=== PATIENT | male | born 1965 | race Caucasian/White ===

== ENCOUNTER 2022-01-31 11:52 | Inpatient (IN) ==
--- NOTE | 2022-01-31 12:29 | Emergency Department Note ---
Impression & Plan Open wound of left thigh, Abscess of left thigh ED Provider Note NAME: FABY FRENCH AGE: 56 SEX: M : 1965 ARRIVES VIA: Walk-In INFORMANT: Patient ED PROVIDER(S): Jae Bates DO CHIEF COMPLAINT: left leg pain HPI: Patient is a 56-year-old male who had an I&D performed last month in [place]. He recently moved up to [place] about a week ago. Since then over the past 4 days he has been having pain in left mid thigh just below the wound. Wound is about 36 cm x 6. He notes that has been improving. He notes the pain he has now feels like his previous infection. Denies any headache or change in vision. No chest pain or shortness of breath. No nausea, vomiting, or diarrhea. No dysuria, urgency, or frequency. He is a diabetic. ROS: See above HPI for pertinent positives & negatives. A total of 10 systems reviewed and were otherwise negative. PAST MEDICAL HISTORY:See Below PAST SURGICAL HISTORY:See Below FAMILY HISTORY:See Below SOCIAL HISTORY:See Below HOME MEDICATIONS:See Below ALLERGIES:See Below VITALS:See Below PHYSICAL EXAMINATION: GENERAL: Sitting up in bed, alert, well appearing, well nourished, no distress, non-toxic EYE EXAM: normal conjunctiva. OROPHARYNX: no exudate, no erythema, lips, buccal mucosa, and tongue normal and mucous membranes are moist NECK: non-tender LUNGS: Clear to auscultation. Normal chest wall mechanics HEART: no murmurs, S1 normal and S2 normal ABDOMEN: abdomen soft, non-tender, normo-active bowel sounds, no masses, no rebound or guarding. BACK: Back is symmetrical on inspection and there is no deformity, no midline tenderness, no CVA tenderness. SKIN: 36 x 6 cm wound left proximal thigh going back to the gluteus. Good granulation tissue. Mild bleeding present. Several sutures present. Firm nodules just below the wound on the left mid thigh. No surrounding erythema. DPs 2 out of 4. Gross station intact. UPPER EXTREMITIES: upper extremities are grossly normal. LOWER EXTREMITIES: No pitting edema. NEURO EXAM: Normal sensorium, cranial nerves II-XII grossly intact, normal speech, no gross weakness of arms, no gross weakness of legs. MEDICAL DECISION MAKING: Patient is a 56-year-old male with a large open wound on the left thigh. He is complaining of worsening leg pain. IV was established blood work was obtained. Labs show mild leukocytosis. No significant anemia. Sed rate was elevated at 86. INR unremarkable. BMP was unremarkable with exception of an elevated glucose at 239. CRP at 3.58. COVID was negative. CT showed possible superfic ial thrombus within draining abscess. Venous Doppler showed no DVT. Discussed with hospitalist for draining abscess. He was given IV antibiotics. He will need to be followed closely and will need wound care. Triage Nursing notes reviewed. Limited review of prior medical records performed Vital Signs: reviewed and remarkable for HTN and tachy Differential diagnosis: Cellulitis, abscess, MRSA infection, DVT, necrotizing fasciitis, dermatitis, drug eruption, allergic reaction, as well as other pathologies. ER treatment provided: See below Diagnostics interpreted by me: ECG: none Cardiac Monitoring: An order was placed for continuous cardiac monitoring. The monitor shows a rate of 80 with sinus rhythm. Laboratory studies: As stated above and show below. Imaging studies: CT as described above Duplex lower extremity shows no DVT Consultation(s): D/w C for further evaluation Procedures: none Critical Care: None Past Med/Surg History Medical History (Updated 01/31/22 @ 17:45 by Jae Bates DO) Diabetic neuropathy HLD (hyperlipidemia) HTN (hypertension) Morbid obesity MEETA (obstructive sleep apnea) not on cpap or O2 T2DM (type 2 diabetes mellitus) Surgical History (Updated 01/31/22 @ 15:20 by Love Caldwell PA-C) Hx of laminectomy L3-S1 Family History Other Cancer Diabetes Family history of blood clots Heart disease Social History (Updated 01/31/22 @ 15:23 by Love Caldwell PA-C) Smoking Status: Former smoker Tobacco Type: Pipe and Cigars Hx Alcohol Use: Yes Alcohol Intake Frequency Comment: rare Hx Substance Use: Yes Prescribed Medications: Marijuana Last Used Substance: Days (ago) Last Used Substance Other:: 3 Preferred Language: [place] marital status: marital status details: but currently going through former divorce Current Living Situation: Homeless Current Living Situation Comment: living with a friend Feels Safe at Home: Yes Allergies Allergies Allergy/AdvReac Type Severity Reaction Status Date / Time metformin AdvReac Severe SEVERE Verified 01/31/22 14:23 DIARRHEA Home Meds Home Medications Medication Instructions Recorded Confirmed acetaminophen 500 mg tablet 2,000 mg PO DIRECTED PRN Pain 01/31/22 01/31/22 (Tylenol Extra Strength) ibuprofen 200 mg tablet 800 mg PO DIRECTED PRN Pain 01/31/22 01/31/22 Results & Data (ED) Vital Signs Vital Signs - 24 hr 01/31/22 11:56 01/31/22 12:27 01/31/22 12:30 Temperature 36.9 C Temperature Source Temporal Artery Scan Pulse Rate 108 H 101 H 101 H Pulse Rate from SpO2 Sensor 88 100 H Respiratory Rate 18 31 H 26 H Blood Pressure 166/87 H 171/127 H 184/118 H Blood Pressure Mean 113 141 140 Pulse Oximetry 93 95 94 Oxygen Delivery Method Room Air Room Air Room Air Sepsis Recent Fever Within 48 Hours No Sepsis New/Unexplained Change in Mental Status No Sepsis Action Taken by Nursing No Action Required 01/31/22 13:01 01/31/22 14:23 01/31/22 14:30 Temperature Temperature Source Pulse Rate 92 H 86 85 Pulse Rate from SpO2 Sensor 92 H 86 85 Respiratory Rate 20 28 H 27 H Blood Pressure 178/108 H 169/107 H 180/99 H Blood Pressure Mean 131 127 126 Pulse Oximetry 96 96 95 Oxygen Delivery Method Room Air Room Air Room Air Sepsis Recent Fever Within 48 Hours Sepsis New/Unexplained Change in Mental Status Sepsis Action Taken by Nursing 01/31/22 14:51 01/31/22 15:00 01/31/22 15:30 Temperature Temperature Source Pulse Rate 85 86 Pulse Rate from SpO2 Sensor 85 83 Respiratory Rate 21 19 Blood Pressure 169/111 H 171/98 H 161/92 H Blood Pressure Mean 130 122 115 Pulse Oximetry 97 96 Oxygen Delivery Method Room Air Room Air Sepsis Recent Fever Within 48 Hours Sepsis New/Unexplained Change in Mental Status Sepsis Action Taken by Nursing 01/31/22 15:30 01/31/22 16:00 01/31/22 16:30 Temperature Temperature Source Pulse Rate 86 85 86 Pulse Rate from SpO2 Sensor 88 Respiratory Rate 24 16 22 Blood Pressure Blood Pressure Mean Pulse Oximetry 96 Oxygen Delivery Method Sepsis Recent Fever Within 48 Hours Sepsis New/Unexplained Change in Mental Status Sepsis Action Taken by Nursing Laboratory Data Result diagrams: 01/31/22 12:15 01/31/22 12:15 Lab Results 01/31/22 01/31/22 01/31/22 Range/Units 12:15 12:15 12:15 WBC 12.00 H (4.8-10.8) K/ul RBC 4.26 L (4.63-6.08) M/uL Hgb 13.4 L (14.0-18.0) g/dl Hct 38.8 L (40.1-51.0) % MCV 91.1 (80.0-100.0) fL MCH 31.5 (25.0-34.0) pg MCHC 34.5 (32.0-36.0) g/dL RDW Std Deviation 48.6 H (36.4-46.3) fL RDW Coeff of Mercedes 14.5 (11.5-14.5) % Plt Count 353 (130-400) K/uL MPV 11.2 (9.4-12.4) fL Immature Gran % (Auto) 0.9 % Neut % (Auto) 76.2 % Lymph % (Auto) 14.1 % [place] % (Auto) 7.0 % Eos % (Auto) 1.2 % Baso % (Auto) 0.6 % Neut # (Auto) 9.15 H (1.4-6.5) K/uL Lymph # (Auto) 1.69 (1.2-3.4) K/uL [place] # (Auto) 0.84 H (0.24-0.82) K/uL Eos # (Auto) 0.14 (0-0.50) K/uL Baso # (Auto) 0.07 (0-0.2) K/uL Immature Gran # (Auto) 0.11 H (0.00-0.02) K/uL ESR 86 H (0-20) mm/hr PT (9.0-12.0) Seconds INR (0.9-1.1) APTT (21.0-31.0) Seconds PTT Ratio Sodium 138 (136-145) mmol/L Potassium 3.8 (3.5-5.1) mmol/L Chloride 104 (98-107) mmol/L Carbon Dioxide 24 (21-32) mmol/L Anion Gap 10 (3-11) BUN 10 (6-23) mg/dl Creatinine 0.58 L (0.6-1.4) mg/dl Est Cr Clr Drug Dosing Not Reportable Est GFR ( Amer) 131.2 ml/min Est GFR (Non-Af Amer) 113.2 ml/min BUN/Creatinine Ratio 17.2 (10-20) Glucose 239 H (70-99(Fasting)) mg/dl Calcium 9.7 (8.5-10.1) mg/dl Total Bilirubin 0.4 (0.2-1.0) mg/dl AST 8 L (13-39) U/L ALT 6 L (7-52) U/L Alkaline Phosphatase 86 (34-104) U/L C-Reactive Protein (0-0.5) mg/dl Total Protein 7.3 (6.0-8.3) gm/dl Albumin 3.6 (3.4-5.0) gm/dl Globulin 3.7 (2.5-4.0) gm/dl Albumin/Globulin Ratio 1.0 (0.9-2) SARS-CoV-2, RNA, NAAT (NEGATIVE) 01/31/22 01/31/22 01/31/22 Range/Units 12:15 12:44 14:25 WBC (4.8-10.8) K/ul RBC (4.63-6.08) M/uL Hgb (14.0-18.0) g/dl Hct (40.1-51.0) % MCV (80.0-100.0) fL MCH (25.0-34.0) pg MCHC (32.0-36.0) g/dL RDW Std Deviation (36.4-46.3) fL RDW Coeff of Mercedes (11.5-14.5) % Plt Count (130-400) K/uL MPV (9.4-12.4) fL Immature Gran % (Auto) % Neut % (Auto) % Lymph % (Auto) % [place] % (Auto) % Eos % (Auto) % Baso % (Auto) % Neut # (Auto) (1.4-6.5) K/uL Lymph # (Auto) (1.2-3.4) K/uL [place] # (Auto) (0.24-0.82) K/uL Eos # (Auto) (0-0.50) K/uL Baso # (Auto) (0-0.2) K/uL Immature Gran # (Auto) (0.00-0.02) K/uL ESR (0-20) mm/hr PT 11.1 (9.0-12.0) Seconds INR 1.0 (0.9-1.1) APTT 25.6 (21.0-31.0) Seconds PTT Ratio 0.9 Sodium (136-145) mmol/L Potassium (3.5-5.1) mmol/L Chloride (98-107) mmol/L Carbon Dioxide (21-32) mmol/L Anion Gap (3-11) BUN (6-23) mg/dl Creatinine (0.6-1.4) mg/dl Est Cr Clr Drug Dosing Est GFR ( Amer) ml/min Est GFR (Non-Af Amer) ml/min BUN/Creatinine Ratio (10-20) Glucose (70-99(Fasting)) mg/dl Calcium (8.5-10.1) mg/dl Total Bilirubin (0.2-1.0) mg/dl AST (13-39) U/L ALT (7-52) U/L Alkaline Phosphatase (34-104) U/L C-Reactive Protein 3.58 H (0-0.5) mg/dl Total Protein (6.0-8.3) gm/dl Albumin (3.4-5.0) gm/dl Globulin (2.5-4.0) gm/dl Albumin/Globulin Ratio (0.9-2) SARS-CoV-2, RNA, NAAT NEGATIVE (NEGATIVE) Administered Medications Discontinued Medications Piperacillin Sod/Tazobactam Sod (Zosyn) 4.5 gm in 120 mls @ 240 mls/hr IV NOW ONE Stop: 01/31/22 14:45 Last Admin: 01/31/22 16:52 Dose: 240 mls/hr Documented By: GUCCI Ioversol (Optiray 300 500ml) 110 ml IV ONCE ONE Stop: 01/31/22 13:27 Last Admin: 01/31/22 13:26 Dose: 110 ml Documented By: TRISTON Labetalol HCl (Labetalol Hcl Iv 5 Mg/Ml 20ml) 10 mg IV NOW STA Stop: 01/31/22 14:52 Last Admin: 01/31/22 16:52 Dose: 10 mg Documented By: GUCCI Co-signed By: ASW Piperacillin Sod/Tazobactam Sod (Piperacillin/Tazobactam 4.5 Gm/120ml D5w) Confirm Administered Dose 4.5 gm IV .Safend-Kudarom ONE Stop: 01/31/22 16:49 Last Admin: 01/31/22 16:58 Dose: Not Given Documented By: RDStevie Imaging Data Radiologist's Impression: Femur CT 01/31/22 12:25 CT femur LT w con HISTORY: 56 years-old Male large wound ? abscess below wound l mid thigh soft tissue swelling with wound of the left upper thigh. Prior debridement. COMPARISON: None TECHNIQUE: Multiple axial CT images of the left femur were obtained following the intravenous administration of 110 mL Optiray 300. A dose lowering technique was used consistent with the principals of HENRY. FINDINGS: Partial distention of the urinary bladder with mild wall thickening. Prostate is mildly enlarged. Colonic diverticulosis. Mildly enlarged left inguinal chain lymph nodes measure up to 2.2 x 1.1 cm. Air and fluid-filled peripherally enhancing collection of the anteromedial left thigh measures approximately 3.0 x 1.6 x 8.0 cm extending to the skin surface. This is rounded by moderate subcutaneous edema with skin thickening. There is a questioned adjacent superficial venous thrombus on image 341 series 3. Ill-defined area of increased attenuation within the subcutaneous tissues on image 155 may be secondary to the prior debridement. No intramuscular collection identified. Evaluation of the bone windows demonstrates no acute fracture, dislocation or os seous erosion. Osteoarthritis of the knee and hip. IMPRESSION: 1. Air and fluid-filled collection extending to the skin surface within the anteromedial aspect of the left upper thigh measures up to approximately 8.0 cm suggestive of a probable abscess. There is adjacent cellulitis with possible superficial venous thrombus. 2. No acute fracture, dislocation or osseous erosion. 3. Inguinal adenopathy, likely reactive. ACT 112: Negative or not required by law. The above report was generated using voice recognition software. It may contain grammatical, syntax or spelling errors. Electronically signed by: Lv Espana M.D. 01/31/2022 1:39 PM Venous Doppler Study 01/31/22 12:25 US venous doppler LE LT CLINICAL HISTORY: lle pain and swelling below wound TECHNIQUE: Left lower extremity real-time compression venous ultrasound with Color Doppler imaging. Utilizing real-time ultrasonic imaging multiple real time high-resolution ultrasonic images with compression and noncompression maneuvers of the deep venous system in addition to color doppler imaging were performed from the common femoral vein through the proximal calf veins. COMPARISON: None available at the time of this dictation. FINDINGS: Currently there is normal compressibility of the deep venous system from the common femoral vein through the proximal calf veins. Exam is limited by patient tolerance. A large open wound is noted in the left groin. Impression: No evidence of deep venous thrombus. Incidental note is made of a large open wound in the left groin. ACT 112: Negative or not required by law. Electronically signed by: Caio Sims M.D. 01/31/2022 4:47 PM Discharge Plan Visit Data Chief Complaint: Wound Stated Complaint: OPEN WOUND ON LEFT THIGH ED Provider: Jae Bates Discharge Problem: Open wound of left thigh, Abscess of left thigh Forms Stand Alone Forms: [facility] Prescriptions Prescriptions: No Action acetaminophen [Tylenol Extra Strength] 500 mg Tablet 2,000 mg PO DIRECTED PRN (Reason: Pain) ibuprofen 200 mg Tablet 800 mg PO DIRECTED PRN (Reason: Pain) Referrals Referrals: PCP,NO [Physician] -
[2022-01-31 12:30] LABS: Basophils # (auto) 0.07 K/uL (0-0.2); Basophils % (auto) 0.6 %; Eosinophils # (auto) 0.14 K/uL (0-0.50); Eosinophils % (auto) 1.2 %; Hematocrit (blood only) 38.8 % (40.1-51.0); Hemoglobin 13.4 g/dl (14.0-18.0); Immature Granulocytes # (auto) 0.11 K/uL (0.00-0.02); Immature Granulocytes % (auto) 0.9 %; Lymphocytes # (auto) 1.69 K/uL (1.2-3.4); Lymphocytes % (auto) 14.1 %; Mean Corpuscular Hemoglobin 31.5 pg (25.0-34.0); Mean Corpuscular Hgb Conc 34.5 g/dL (32.0-36.0); Mean Corpuscular Volume 91.1 fL (80.0-100.0); Mean Platelet Volume 11.2 fL (9.4-12.4); Monocytes # (auto) 0.84 K/uL (0.24-0.82); Neutrophils # (auto) 9.15 K/uL (1.4-6.5); Neutrophils % (auto) 76.2 %; Platelet Count 353 K/uL (130-400); RDW Coefficient of Variation 14.5 % (11.5-14.5); RDW Standard Deviation 48.6 fL (36.4-46.3); Red Blood Count 4.26 M/uL (4.63-6.08)
[2022-01-31 12:50] LABS: Alanine Aminotransferase 6 U/L (7-52); Albumin Level 3.6 gm/dl (3.4-5.0); Alkaline Phosphatase 86 U/L (34-104); Anion Gap 10 (3-11); Aspartate Aminotransferase 8 U/L (13-39); BUN Creatinine Ratio 17.2 (10-20); Bilirubin,Total 0.4 mg/dl (0.2-1.0); Blood Urea Nitrogen 10 mg/dl (6-23); Calcium 9.7 mg/dl (8.5-10.1); Carbon Dioxide 24 mmol/L (21-32); Chloride 104 mmol/L (98-107); Est GFR (African American) 131.2 ml/min; Est GFR (Non-African American) 113.2 ml/min; Globulin 3.7 gm/dl (2.5-4.0); Glucose 239 mg/dl (70-99(Fasting)); Potassium 3.8 mmol/L (3.5-5.1); Sodium 138 mmol/L (136-145); Total Protein 7.3 gm/dl (6.0-8.3)
[2022-01-31 13:13] LABS: Partial Thromboplastin Ratio 0.9; Partial Thromboplastin Time 25.6 Seconds (21.0-31.0); Prothrombin Time 11.1 Seconds (9.0-12.0)
[2022-01-31] MEDS ORDERED: OPTIRAY 300 500mL IV ONE (13:26)
--- NOTE | 2022-01-31 13:40 | CT Scan Report ---
CT femur LT w con HISTORY: 56 years-old Male large wound ? abscess below wound l mid thigh soft tissue swelling with w ound of the left upper thigh. Prior debridement. COMPARISON: None TECHNIQUE: Multiple axial CT images of the left femur were obtained following the intravenous adminis tration of 110 mL Optiray 300. A dose lowering technique was used consistent with the principals of Loc MENESES. FINDINGS: Partial distention of the urinary bladder with mild wall thickening. Prostate is mildly enlarged. Col onic diverticulosis. Mildly enlarged left inguinal chain lymph nodes measure up to 2.2 x 1.1 cm. Air and fluid-filled peripherally enhancing collection of the anteromedial left thigh measures approximat graeme 3.0 x 1.6 x 8.0 cm extending to the skin surface. This is rounded by moderate subcutaneous edema with skin thickening. There is a questioned adjacent superficial venous thrombus on image 341 series 3. Ill-defined area of increased attenuation within the subcutaneous tissues on image 155 may be seco ndary to the prior debridement. No intramuscular collection identified. Evaluation of the bone windows demonstrates no acute fracture, dislocation or osseous erosion. Osteoa rthritis of the knee and hip. IMPRESSION: 1. Air and fluid-filled collection extending to the skin surface within the anteromedial aspect of th e left upper thigh measures up to approximately 8.0 cm suggestive of a probable abscess. There is adj acent cellulitis with possible superficial venous thrombus. 2. No acute fracture, dislocation or osseous erosion. 3. Inguinal adenopathy, likely reactive. ACT 112: Negative or not required by law. The above report was generated using voice recognition software. It may contain grammatical, syntax o r spelling errors. Electronically signed by: Lv Espana M.D. 01/31/2022 1:39 PM
[2022-01-31] MEDS ORDERED: PIPERACILLIN/TAZOBACTAM 4.5 GM/120 ML BAG IV ONE (14:16)
[2022-01-31] MEDS ORDERED: LABETALOL HCL IV 5 MG/ML 20ML IV STA (14:51)
--- NOTE | 2022-01-31 15:23 | History & Physical Report ---
Date of Service January 31, 2022 Assessment & Plan (1) Open wound of left thigh: (2) Abscess of left thigh: (3) T2DM (type 2 diabetes mellitus): (4) HTN (hypertension): (5) HLD (hyperlipidemia): (6) Diabetic neuropathy: (7) Morbid obesity: Plan This is a 56-year-old male who has a significant past medical history of uncontrolled T2DM, HTN, HLD, obesity and MEETA who presents to ED due to worsening of L thigh wound x 3 days. Pt recently moved back from [place], [place]. Hospitalized there 12/27-01/20 2/2 L thigh abscess/cellulitis, that started as abscess. States underwent I and D, completed antibiotics and d/c to home with wound care. Has moved back up here a week and 3 days ago sx started to recur. Hx of cellulitis in past, denies hx of MRSA. Due to no insurance has not been taking any medications for chronic medical conditions Open Wound of L thigh Abscess of L thigh admit to tele consult general surgery initiate broad spectrum antibiotic with vanco, cefepime, flagyl obtain superficial culture although likely to be not helpful, will likely need I and D wound consult elevated lower ext obtain blood culture, esr/crp, pt does not meet criteria for sepsis will make NPO after midnight in event surgical procedure in a.m. Possible SVT per Femur CT ? SVT venous Doppler negative for dvt/svt T2DM, uncontrolled due to unable to afford medications place on lantus/novolog protocol obtain a1c in a.m. , pt states in [place] it was > 9 will likely need to coordinate with CM to determine a regimen pt can afford, currently he states he has no income HTN bp very high on admission, again likely chronic and untreated previously when under care of Dr. Leung was on lisinopril 40mg daily and coreg 3.125mg bid will give 10mg IV labetolol x 1 now will start lisinopril 20mg daily, will need to titrate as needed HLD previously of atorvastatin 80mg daily currently off medication obtain lipid panel in a.m. Morbid Obesity encourage diet and lifestyle modifications DVT ppx: will await surgical consult to determine if to go for I and D, if not recommend adding lovenox DNR/DNI PCP: none, pt wishes to return to [facility], previously saw Dr. Leung, pt will also need assistance with medications as currently he isn't taking any due to unable to afford Pt was seen and examined in collaboration with Dr. Martin, please see addendum History of Present Illness Chief Complaint: Worsening wound to L leg x 3 days. Primary Care Provider: Eron Leung MD This is a 56-year-old male who has a significant past medical history of uncontrolled T2DM, HTN, HLD, obesity and MEETA who presents to ED due to worsening of L thigh wound x 3 days. Patient recently lived in the area but moved to [place], [place] approximately 2 years ago. He was recently hospitalized at [facility] in [place] from December 27 - January 20. He was hospitalized for L thigh cellulitis and abscess. He underwent I and D. He completed antibiotic therapy. He is unsure what antibiotics he took as well as what his culture showed in the hospital. He was discharged to home with wet to dry dressing changes twice daily. He moved back to [place] with his son Jeff, who is at bedside, 1 week ago. He continued to have his wound at discharge but felt it was much improved. Approx 3 days ago he noted a lot more swelling, pain, redness and bloody, yellow discharge to the medial aspect of wound. He denies any f/c/s, chest pain, sob, URI sx, cough, n/v/d, abd pain, change in bowel or urinary habits. Unfortunately pt lost his insurance due to job and was not able to get medicaid in [place]. He has not been on medication for his chronic medical problems for quite some time. He states he was recently just approved to medicaid. He states he previously followed Dr. Leung of [facility] and is interested in following with [facility] again. Currently he is homeless and living with a friend. When he was in the hospital his actually served him divorce papers. Allergies Allergy/AdvReac Type Severity Reaction Status Date / Time metformin AdvReac Severe SEVERE Verified 01/31/22 14:23 DIARRHEA Home Medications Medication Instructions Recorded Confirmed Type acetaminophen 500 mg tablet 2,000 mg PO DIRECTED PRN Pain 01/31/22 01/31/22 History (Tylenol Extra Strength) ibuprofen 200 mg tablet 800 mg PO DIRECTED PRN Pain 01/31/22 01/31/22 History Past Med/Surg History Medical History (Updated 01/31/22 @ 17:45 by Jae Bates DO) Diabetic neuropathy HLD (hyperlipidemia) HTN (hypertension) Morbid obesity MEETA (obstructive sleep apnea) not on cpap or O2 T2DM (type 2 diabetes mellitus) Surgical History (Updated 01/31/22 @ 15:20 by Love Caldwell PA-C) Hx of laminectomy L3-S1 Family History Other Cancer Diabetes Family history of blood clots Heart disease Social History (Updated 01/31/22 @ 15:23 by Love Caldwell PA-C) Smoking Status: Former smoker Tobacco Type: Pipe and Cigars Hx Alcohol Use: Yes Alcohol Intake Frequency Comment: rare Hx Substance Use: Yes Prescribed Medications: Marijuana Last Used Substance: Days (ago) Last Used Substance Other:: 3 Preferred Language: Persian marital status: marital status details: but currently going through former divorce Current Living Situation: Homeless Current Living Situation Comment: living with a friend Feels Safe at Home: Yes Review of Systems Review of Systems: All systems reviewed & are unremarkable except as noted in HPI & below Physical Exam Physical Exam: constitutional:WD/WN, morbidly obese, vitals as above, NAD, sitting up in bed, pleasant, conversing easily Head: Normocephalic, Atraumatic Eyes: PERRL, conjunctivae normal, anicteric sclerae ENMT: external ear and nose normal, oropharynx normal Neck: trachea midline, no thyromegaly normal visual inspection Respiratory: normal respiratory effort, lungs clear to auscultation, no wheeze, rales, rhonchi. Normal insp/exp effort, no accessory muscle use Cardiovascular: RRR, no murmur, b/l venous stasis changes, non pitting edema, b/l pedal pulses +1 Vessels: no JVD or carotid bruit Chest: normal inspection of chest Abdomen: normal bowel sounds, soft, nontender, no hepatosplenomegaly Musculoskeletal: no cyanosis or clubbing, extremities motor strength 5/5 Skin:+ Large wound (~ 36 x 6 cm) extending from lateral proximal thing to medial inguinal region with hard, tender, erythematous abscess, wound itself with good granular tissue, several sutures present, warm and dry normal turgor Neurologic: PERRL, EOMI, accommodation nl, no face palsy, no dysarthria CN's II-XI intact bilaterally and moves all extremities Psychiatric: A+Ox3, euthymic affect Lymphatic: no cervical or axillary lymphadenopathy : deferred Results & Data Results & Data ([facility]) Vital Signs (Past 12 Hours) Vital Signs Temp Pulse Resp BP Pulse Ox O2 Del Method 01/31/22 15:00 86 19 171/98 H 96 Room Air 01/31/22 14:51 85 21 169/111 H 97 Room Air 01/31/22 14:30 85 27 H 180/99 H 95 Room Air 01/31/22 14:23 86 28 H 169/107 H 96 Room Air 01/31/22 13:01 92 H 20 178/108 H 96 Room Air 01/31/22 12:30 101 H 26 H 184/118 H 94 Room Air 01/31/22 12:27 101 H 31 H 171/127 H 95 Room Air 01/31/22 11:56 36.9 C 108 H 18 166/87 H 93 Room Air Diagnostic Findings Femur CT 01/31/22 12:25 CT femur LT w con HISTORY: 56 years-old Male large wound ? abscess below wound l mid thigh soft tissue swelling with wound of the left upper thigh. Prior debridement. COMPARISON: None TECHNIQUE: Multiple axial CT images of the left femur were obtained following the intravenous administration of 110 mL Optiray 300. A dose lowering technique was used consistent with the principals of HENRY. FINDINGS: Partial distention of the urinary bladder with mild wall thickening. Prostate is mildly enlarged. Colonic diverticulosis. Mildly enlarged left inguinal chain lymph nodes measure up to 2.2 x 1.1 cm. Air and fluid-filled peripherally enhancing collection of the anteromedial left thigh measures approximately 3.0 x 1.6 x 8.0 cm extending to the skin surface. This is rounded by moderate subcutaneous edema with skin thickening. There is a questioned adjacent superficial venous thrombus on image 341 series 3. Ill-defined area of increased attenuation within the subcutaneous tissues on image 155 may be secondary to the prior debridement. No intramuscular collection identified. Evaluation of the bone windows demonstrates no acute fracture, dislocation or osseous erosion. Osteoarthritis of the knee and hip. IMPRESSION: 1. Air and fluid-filled collection extending to the skin surface within the anteromedial aspect of the left upper thigh measures up to approximately 8.0 cm suggestive of a probable abscess. There is adjacent cellulitis with possible superficial venous thrombus. 2. No acute fracture, dislocation or osseous erosion. 3. Inguinal adenopathy, likely reactive. ACT 112: Negative or not required by law. The above report was generated using voice recognition software. It may contain grammatical, syntax or spelling errors. Electronically signed by: Lv Espana M.D. 01/31/2022 1:39 PM Medications Administered Medication List Discontinued Medications Ioversol (Optiray 300 500ml) 110 ml IV ONCE ONE Stop: 01/31/22 13:27 Last Admin: 01/31/22 13:26 Dose: 110 ml Documented By: TRISTON COVID-19 Results Results COVID-19 Adm Lab Results: RBC 4.26 M/uL (4.63-6.08) L 01/31/22 WBC 12.00 K/ul (4.8-10.8) H 01/31/22 Hgb 13.4 g/dl (14.0-18.0) L 01/31/22 Hct 38.8 % (40.1-51.0) L 01/31/22 Plt Count 353 K/uL (130-400) 01/31/22 Neutrophils (%) (Auto) 76.2 % 01/31/22 Lymphocytes (%) (Auto) 14.1 % 01/31/22 Monocytes # (Auto) 0.84 K/uL (0.24-0.82) H 01/31/22 Eosinophils # (Auto) 0.14 K/uL (0-0.50) 01/31/22 Immature Granulocyte % (Auto) 0.9 % 01/31/22 Neutrophils # (Auto) 9.15 K/uL (1.4-6.5) H 01/31/22 Lymphocytes # (Auto) 1.69 K/uL (1.2-3.4) 01/31/22 Monocytes # (Auto) 0.84 K/uL (0.24-0.82) H 01/31/22 Eosinophils # (Auto) 0.14 K/uL (0-0.50) 01/31/22 Basophils # (Auto) 0.07 K/uL (0-0.2) 01/31/22 Immature Granulocyte # (Auto) 0.11 K/uL (0.00-0.02) H 01/31 Na 138 mmol/L (136-145) 01/31/22 K 3.8 mmol/L (3.5-5.1) 01/31/22 Cl 104 mmol/L (98-107) 01/31/22 CO2 24 mmol/L (21-32) 01/31/22 Anion Gap 10 (3-11) 01/31/22 BUN 10 mg/dl (6-23) 01/31/22 Creatinine 0.58 mg/dl (0.6-1.4) L 01/31/22 BUN/Creatinine Ratio 17.2 (10-20) 01/31/22 Glucose Level 239 mg/dl (70-99(Fasting)) H 01/31/22 Ca 9.7 mg/dl (8.5-10.1) 01/31/22 Total Bilirubin 0.4 mg/dl (0.2-1.0) 01/31/22 AST/SGOT 8 U/L (13-39) L 01/31/22 ALT/SGPT 6 U/L (7-52) L 01/31/22 Alkaline Phosphatase 86 U/L (34-104) 01/31/22 Total Protein 7.3 gm/dl (6.0-8.3) 01/31/22 Albumin 3.6 gm/dl (3.4-5.0) 01/31/22 Globulin 3.7 gm/dl (2.5-4.0) 01/31/22 Albumin/Globulin Ratio 1.0 (0.9-2) 01/31/22 CRP 3.58 mg/dl (0-0.5) H 01/31/22 PTT 25.6 Seconds (21.0-31.0) 01/31/22 INR 1.0 (0.9-1.1) 01/31/22 SARS-CoV-2, RNA, NAAT NEGATIVE (NEGATIVE) 01/31/22 Code Status & VTE Plan Code Status DNR/DNI VTE Prophylaxis Plan VTE Prophylaxis will be ordered: No Supervising Physician Co-Signing Physician Notes Pt seen and examined by me, care coordinated w/ BEduardo Caldwell PA-C, pls refer to her note above for further detail. Pt is a 56 yo M w/ uncontrolled T2DM, HTN, HLD, obesity and MEETA who presents due to worsening of L thigh wound. Patient recently moved back to [place] from [place] ([place] He was hospitalized at [facility] in [place] from December 27 - January 20. He was hospitalized for L thigh cellulitis and abscess. He underwent I and D. He completed antibiotic therapy. Approx 3 days ago he noted a lot more swelling, pain, redness and bloody, yellow discharge to the medial aspect of wound. He denies any f/c/s, chest pain, sob, URI sx, cough, n/v/d, abd pain. He is currently lying in bed, in no acute distress. He is alert oriented answering questions appropriately.As above, he denies any other complaints. Lung sounds clear to auscultation bilaterally without any wheezing, rhonchi or crackles. Heart sounds regular. Abdomen soft nontender nondistended, obese. Patient appears morbidly obese on physical exam. Significant wound noted in right upper thigh from medial to lateral. Gauze/dressings applied as well, some surgical sutures noted as well. Some lower extremity edema noted. Calves tender to palpation, however per patient this is due to his neuropathy. CT of his leg, as well as Doppler obtained. Doppler negative for DVT. CT concerning for large abscess. Surgical service consulted. Patient was started on IV broad spectrum antibiotics in the ED. We will continue with IV vancomycin, cefepime and Flagyl. MD Veronica
[2022-01-31] MEDS ORDERED: PIPERACILLIN/TAZOBACTAM 4.5 GM/120ML D5W IV ONE (16:48)
--- NOTE | 2022-01-31 16:48 | Ultrasound Report ---
US venous doppler LE LT CLINICAL HISTORY: lle pain and swelling below wound TECHNIQUE: Left lower extremity real-time compression venous ultrasound with Color Doppler imaging. U tilizing real-time ultrasonic imaging multiple real time high-resolution ultrasonic images with compr ession and noncompression maneuvers of the deep venous system in addition to color doppler imaging we re performed from the common femoral vein through the proximal calf veins. COMPARISON: None available at the time of this dictation. FINDINGS: Currently there is normal compressibility of the deep venous system from the common femoral vein thro ugh the proximal calf veins. Exam is limited by patient tolerance. A large open wound is noted in th e left groin. Impression: No evidence of deep venous thrombus. Incidental note is made of a large open wound in the left groin. ACT 112: Negative or not required by law. Electronically signed by: Caio Sims M.D. 01/31/2022 4:47 PM
[2022-01-31] MEDS ORDERED: CARBOHYDRATES FOR HYPOGLYCEMIA PO PRN (17:55)
[2022-01-31] MEDS ORDERED: GLUCOSE 40% GEL 15 GM TUBE PO PRN (17:55)
[2022-01-31] MEDS ORDERED: ONDANSETRON INJ 2 MG/ML 2 ML VIAL IV PRN (17:55)
[2022-01-31] MEDS ORDERED: GLUCOSE 10 TAB/TUBE PO PRN (17:55)
[2022-01-31] MEDS ORDERED: VANCOMYCIN CONSULT ACTIVE PRN (17:55)
[2022-01-31] MEDS ORDERED: POLYETHYLENE (MIRALAX) 17 GM PACK PO PRN (17:55)
[2022-01-31] MEDS ORDERED: DEXTROSE 50% 50 ML SYRINGE IV PRN (17:55)
[2022-01-31] MEDS ORDERED: PHARMACY GLYCEMIC MGMT CONSULT PRN (17:55)
[2022-01-31] MEDS ORDERED: ACETAMINOPHEN 325 MG TAB PO PRN (17:55)
[2022-01-31] MEDS ORDERED: GLUCAGON FOR INJ 1 MG VIAL SQ PRN (17:55)
[2022-01-31] MEDS ORDERED: ALUMINUM/MAGNESIUM SUSP 30 ML UDC PO PRN (17:55)
[2022-01-31] MEDS ORDERED: MAGNESIUM HYDROXIDE SUSP 30 ML UDC PO PRN (17:55)
[2022-01-31] MEDS ORDERED: Patient's HEIGHT &/or WEIGHT Needed SCH (18:00)
[2022-01-31] MEDS: lisinopril 20 MG TAB PO SCH (18:14)
[2022-01-31] MEDS: INSULIN ASPART PER UNIT SC SCH ×2 (18:15→21:09)
[2022-01-31] MEDS ORDERED: VANCOMYCIN HCL 2,750 MG in SODIUM CHLORIDE 0.9% 500 ML IV ONE (18:30)
--- NOTE | 2022-01-31 18:59 | Pharmacy Report ---
Pharmacy PK ABX Note - Date of Service January 31, 2022 - Assessment and Plan Assessment 56 year old M receiving vancomycin/cefepime/Flagyl for treatment of thigh cellulitis. No culture data at this time. Patient was previously hospitalized x 1 month in [place] and received unknown antibiotics. Day # 1 of antimicrobial therapy. Plan Vancomycin * Loading dose: 2750 mg IV x 1 * Maintenance dose: 1500 mg IV every 12 hours * Regimen is predicted to achieve target AUC/MIGULE of 400-600 mg/L.hr * Trough level ordered for: 02/02/22 @0330 Pharmacy will continue to follow and will adjust dose/frequency as necessary. Thank you. Pharmacy has transitioned to AUC monitoring for vancomycin. AUC/MIGUEL is the preferred PK/PD target and is associated with decreased risk of nephrotoxicity compared to traditional trough targets.
--- NOTE | 2022-01-31 19:38 | Surgery Consultation ---
Date of Consultation January 31, 2022 Assessment & Plan (1) Abscess of left thigh: Patient has been admitted on the hospitalist service. We recommend proceeding as follows: Continue broad-spectrum antibiotics in form of cefepime, vancomycin, and Flagyl Records have been requested from previous hospitalization in [place]. We will await these records and they have further be able to tailor his antibiotics based on any cultures that were obtained. Agree with measures to improve glycemic control Agree with obtaining a wound care nurse consultation The patient is n.p.o. after midnight. We will continue this order and tentatively plan on an incision and drainage in the operating room after exami nation by attending surgeon in the morning. It is noteworthy to mention that the patient is currently hemodynamically stable and afebrile. He has just finished his evening meal proximately 20 minutes ago therefore operative intervention will be delayed until the morning. History of Present Illness Reason for Consultation: Left thigh abscess Attending Physician: Prince Martin MD History of Present Illness This is a 56-year-old male who is a known diabetic. The patient recently relocated to the [facility] from [place]. Patient says that he developed an infection of his left thigh while he was still residing in [place]. He underwent an incision and drainage of the infected area on December 30. Patient notes that the wound was left open and he was applying wet-to-dry dressings twice daily. The patient says he was hospitalized in [place] for this and when he was discharged he was discharged on antibiotics which he believes was amoxicillin. He reports that he finished this antibiotic on January 20. Patient says he was initially doing well upon completion of his antibiotics however over the past 24 to 48 hours he noted some hard spots and worsening pain of the left leg. He does note that he has continued to change the dressing of his leg and during the dressing change performed yesterday he did note some bleeding of the wound. He has not had any fevers, shakes, or chills. He does note that there has been considerable drainage from the wound at times but he notes that it is not pus and is not malodorous. He does note that the drainage has been clear. Due to the worsening pain he presented to the emergency department. Since arrival to the hospital the patient has had labs and imaging which I independent reviewed. He did undergo a left femur CT scan. This showed the patient had an air and fluid-filled collection extending to the skin surface with the anterior medial aspect of the left upper thigh measuring approximately 8.0 cm. This was suggestive of an abscess. Adjacent cellulitis with a possible superficial venous thrombosis was noted. A left lower extremity venous Doppler was performed that showed no evidence of DVT. Labs including CBC were white blood cell count was 12.0. Hemoglobin and hematocrit were 13.4 and 38.8. Platelet count was normal. Chemistry profile showed sodium, potassium, and BUN were normal. Creatinine was 0.58. Patient's glucose was noted to be 239. A COVID test was noted to be negative. I did asked the patient about his diabetic history and he notes that he has been diabetic for many years and he has not been taking any diabetic medications for several years as well. In addition the patient reports severe lower extremity neuropathy. He says he has tried various modalities for this in the past including Neurontin and Lyrica but these did not alleviate any of his neuropathic pain. Patient also adds that he is a current smoker. Since admission to the hospital the patient has been initiated on broad-spectrum antibiotics in form of cefepime, vancomycin, and Flagyl. He has also been initiated on insulin to achieve better diabetic control. Blood cultures have been sent and a superficial left leg wound culture has been obtained. At the time of my interview the patient was resting comfortably in bed he was in no distress. Allergies Allergy/AdvReac Type Severity Reaction Status Date / Time metformin AdvReac Severe SEVERE Verified 01/31/22 14:23 DIARRHEA Home Medications Medication Instructions Recorded Confirmed Type acetaminophen 500 mg tablet 2,000 mg PO DIRECTED PRN Pain 01/31/22 01/31/22 History (Tylenol Extra Strength) ibuprofen 200 mg tablet 800 mg PO DIRECTED PRN Pain 01/31/22 01/31/22 History Patient History Medical History Diabetic neuropathy HLD (hyperlipidemia) HTN (hypertension) Morbid obesity MEETA (obstructive sleep apnea) not on cpap or O2 T2DM (type 2 diabetes mellitus) Surgical History Hx of laminectomy L3-S1 Family History Other Cancer Diabetes Family history of blood clots Heart disease Social History Smoking Status: Current every day smoker Tobacco Type: Pipe and Cigars Cigarettes Per Day: 4; Second Hand Exposure: No; Do You Dip or Chew Tobacco: No; Tobacco Cessation Education Requested by Patient: No Hx Alcohol Use: No Hx Substance Use: Yes Prescribed Medications: Marijuana Last Used Substance: Days (ago) Last Used Substance Other:: Yesterday afternoon Preferred Language: Estonian Communication Ability: Effective Sports Photographer Required: No Beliefs That Will Affect Care: None marital status: marital status details: but currently going through former divorce Current Living Situation: Homeless and Other Current Living Situation Comment: Friend Other Information That Helps Us Care for You: No Feels Safe at Home: Yes Safety Concerns: Feels Safe At This Time Assistive Devices: Glasses, Walker and Wheelchair Review of Systems Constitutional: no fever and no chills Eyes: + corrective lenses Ear, Nose, Mouth, Throat: no ear pain Respiratory: no cough and no dyspnea Cardiovascular: no chest pain Gastrointestinal: no abdominal pain, no nausea and no vomiting Genitourinary: no dysuria Musculoskeletal: no back pain Integumentary: Left lower extremity wound Neurologic: + problem reported (Lower extremity neuropathy); no localized weakness Physical Exam Physical Exam: Patient's left lower extremity was examined. The patient had a longitudinal incision that extended from approximately the anterior inferior iliac spine along his groin crease to the inner thigh. The wound was open. Upon examination of the wound there is no gross purulence or drainage at this time. There is a small amount of granulation tissue and parts of the wound. I cannot appreciate any crepitus upon palpation. There is a small amount of surrounding cellulitis. The area was tender to palpation but did not exhibit considerable warmth. Constitutional: WD/WN, vitals as above Eyes: no conjunctival abnormality ENMT: Ears: no hearing impairment and no external ear abnormality Mouth: no oropharynx abnormality Neck: trachea midline Respiratory: normal respiratory effort; no respiratory distress and no labored breathing Cardiovascular: Rate/Rhythm: regular rate and regular rhythm Gastrointestinal (Abdomen): Soft, nondistended, nonrigid, nontender to palpation Musculoskeletal: No nonhealing foot wounds are noted on his feet bilaterally. The patient has considerable pain with even light palpation of his lower extremities due to neuropathy. Feet are warm and nonmottled. Pedal pulses are not palpable Skin: Wound noted on left thigh/groin which was described above Neurologic: moves all extremities Psychiatric: A+Ox3, euthymic affect Results & Data ([facility]) Vital Signs (Past 12 Hours) Vital Signs Temp Pulse Pulse Resp BP BP Pulse Ox 01/31/22 17:35 85 01/31/22 18:35 36.5 C 65 16 162/89 H 96 01/31/22 18:03 01/31/22 16:30 86 22 01/31/22 16:00 85 16 01/31/22 15:30 86 24 96 01/31/22 15:30 161/92 H 01/31/22 15:00 86 19 171/98 H 96 01/31/22 14:51 85 21 169/111 H 97 01/31/22 14:30 85 27 H 180/99 H 95 01/31/22 14:23 86 28 H 169/107 H 96 01/31/22 13:01 92 H 20 178/108 H 96 01/31/22 12:30 101 H 26 H 184/118 H 94 01/31/22 12:27 101 H 31 H 171/127 H 95 01/31/22 11:56 36.9 C 108 H 18 166/87 H 93 O2 Del Method 01/31/22 17:35 01/31/22 18:35 Room Air 01/31/22 18:03 Room Air 01/31/22 16:30 01/31/22 16:00 01/31/22 15:30 01/31/22 15:30 01/31/22 15:00 Room Air 01/31/22 14:51 Room Air 01/31/22 14:30 Room Air 01/31/22 14:23 Room Air 01/31/22 13:01 Room Air 01/31/22 12:30 Room Air 01/31/22 12:27 Room Air 01/31/22 11:56 Room Air PG Care Time/CCT Total # of Minutes Spent Total Time Spent with Patient: Total time spent is greater than 50% in coordination of care (as documented) at patient's floor/unit and/or counseling patient: Coding Level of Care Code 07166 Inpt Consult Level 5 Diagnoses Abscess of left thigh L02.416
[2022-01-31] MEDS ORDERED: LANTUS PER UNIT CHARGE SQ ONE (21:00)
[2022-01-31] MEDS: MoRPHine SULFATE 4 MG/ML 1 ML CARP\\VIAL IV PRN (21:48)
[2022-01-31] MEDS: metroNIDAZOLE 500 MG/100 ML BAG IV SCH (21:49)
[2022-01-31] MEDS: CEFEPIME 2,000 MG in SYRINGE 0 ML IV SCH (21:51)
[2022-02-01] MEDS: INSULIN ASPART PER UNIT SC SCH ×5 (00:45→21:14)
[2022-02-01] MEDS: metroNIDAZOLE 500 MG/100 ML BAG IV SCH ×3 (03:00→20:07)
[2022-02-01] MEDS: VANCOMYCIN HCL 1,500 MG in SODIUM CHLORIDE 0.9% 500 ML IV SCH ×2 (05:02→17:17)
[2022-02-01] MEDS: CEFEPIME 2,000 MG in SYRINGE 0 ML IV SCH ×3 (05:02→21:42)
[2022-02-01 07:00] LABS: Basophils # (auto) 0.08 K/uL (0-0.2); Basophils % (auto) 0.7 %; Eosinophils # (auto) 0.31 K/uL (0-0.50); Eosinophils % (auto) 2.9 %; Hemoglobin 11.5 g/dl (14.0-18.0); Immature Granulocytes # (auto) 0.11 K/uL (0.00-0.02); Lymphocytes # (auto) 1.82 K/uL (1.2-3.4); Lymphocytes % (auto) 16.9 %; Mean Corpuscular Hemoglobin 31.3 pg (25.0-34.0); Mean Corpuscular Hgb Conc 33.8 g/dL (32.0-36.0); Mean Corpuscular Volume 92.4 fL (80.0-100.0); Mean Platelet Volume 10.8 fL (9.4-12.4); Monocytes # (auto) 0.78 K/uL (0.24-0.82); Monocytes % (auto) 7.2 %; Neutrophils # (auto) 7.66 K/uL (1.4-6.5); Neutrophils % (auto) 71.3 %; Platelet Count 299 K/uL (130-400); RDW Coefficient of Variation 14.6 % (11.5-14.5); RDW Standard Deviation 49.4 fL (36.4-46.3); Red Blood Count 3.68 M/uL (4.63-6.08); White Blood Count 10.76 K/ul (4.8-10.8)
[2022-02-01 07:35] LABS: BUN Creatinine Ratio 17.2 (10-20); Est GFR (African American) 131.2 ml/min; Est GFR (Non-African American) 113.2 ml/min; Potassium 3.5 mmol/L (3.5-5.1)
[2022-02-01] MEDS: lisinopril 20 MG TAB PO SCH (07:49)
[2022-02-01 08:01] LABS: Estimated Average Glucose 171 mg/dl; Hemoglobin A1C 7.6 % (4.5-5.6)
[2022-02-01 09:00] LABS: Magnesium 1.4 mg/dl (1.7-2.4)
[2022-02-01] MEDS ORDERED: LANTUS PER UNIT CHARGE SQ ONE (09:00)
[2022-02-01 09:08] LABS: Albumin Level 3.2 gm/dl (3.4-5.0); Bilirubin,Total 0.4 mg/dl (0.2-1.0); Chol HDL Ratio 9.1 (0-5); Globulin 3.1 gm/dl (2.5-4.0); Total Protein 6.3 gm/dl (6.0-8.3)
[2022-02-01] MEDS ORDERED: Nursing to Pharmacy Communication SCH (11:30)
--- NOTE | 2022-02-01 11:30 | Surgery Progress Note ---
Date of Service February 01, 2022 Assessment & Plan (1) Abscess of left thigh: Plan: clinically improved. wbc improved. reviewed CT with radiology. fluid collection is draining externally. there really is nothing contained that needs drained surgically. continue IV antibiotics. will see if wound nurses can get a vac to seal will continue to follow from periphery though no surgical intervention planned now will restart diet (2) Open wound of left thigh: (3) T2DM (type 2 diabetes mellitus): (4) Morbid obesity: Admission and Anticipated Discharge Date Admission Date: January 31, 2022 Subjective pt seen. feeling better. much less sore than yesterday. Physical Exam Physical Exam: alert. nad. Skin: left upper leg with large incision. +granulation tissue. some areas of tunneling. minimal if any erythema. minimal purulent drainage. no fluctuance. minimal tenderness. Results & Data ([facility]) Vital Signs (Past 12 Hours) Vital Signs Temp Pulse Pulse Resp BP BP Pulse Ox 02/01/22 11:06 37.2 C 81 20 122/76 95 02/01/22 07:33 36.7 C 76 20 138/83 94 02/01/22 03:16 36.6 C 86 20 126/68 96 01/31/22 23:57 36.6 C 78 20 135/75 94 01/31/22 23:50 77 O2 Del Method 02/01/22 11:06 Room Air 02/01/22 07:33 Room Air 02/01/22 03:16 Room Air 01/31/22 23:57 Room Air 01/31/22 23:50 PG Care Time/CCT Total # of Minutes Spent Total Time Spent with Patient: Total time spent is greater than 50% in coordination of care (as documented) at patient's floor/unit and/or counseling patient: Coding Level of Care Code 62221 Subseq Hosp Care Lvl 2 Diagnoses Abscess of left thigh L02.416 Open wound of left thigh S71.102A T2DM (type 2 diabetes mellitus) E11.9 Morbid obesity E66.01
--- NOTE | 2022-02-01 12:54 | Pharmacy Report ---
Pharmacy Glycemic Short Note 2 - Date of Service February 01, 2022 - Glycemic Short BSG Results (Last 24 hours): 01/31/22 01/31/22 01/31/22 12:15 18:02 20:18 Glucose 239 H POC Glucose 201 H 184 H 02/01/22 02/01/22 02/01/22 00:42 05:59 06:46 Glucose 156 H POC Glucose 126 H 170 H 02/01/22 11:24 Glucose POC Glucose 162 H OUTPATIENT ANTIDIABETIC REGIMEN: * N/A ASSESSMENT: * 56 y/o M admitted for cellulitis, recently hospitalized for 1 month for the same. * On admission, BSGs have been elevated, A1c today = 7.6% indicating newly diagnosed diabetes. Patient was not any anti-diabetic meds at home. * Patient noted to have high BMI and obesity. * Basal and bolus insulins were ordered last night based on wt and stress of 3. * BSGs trended down to fasting of 156 mg/dl this morning. Patient received total 40 units of insulin last night; 25 units basal and 15 units bolus. * Lantus 10 units added on this morning. BSG trended down to 162 mg/dl pre- lunch. Novolog continued the same as yesterday. * Lantus dose scale ordered for HS. PLAN FOR INPATIENT GLYCEMIC CONTROL: * Basal insulin * Lantus 10 units SQ today AM * Lantus 25-35 units scale based on BSG at HS * Bolus insulin * NovoLog per scale ACHS or Q6hrs while NPO * Goal Range: Low 110 mg/dL - High 140 mg/dL * Correction Factor: 15 mg/dL/unit * Nutritional / Prandial insulin per carb ratio of 1 unit per 5 grams CHO consumed
[2022-02-01] MEDS: MoRPHine SULFATE 4 MG/ML 1 ML CARP\\VIAL IV PRN ×2 (14:30→21:44)
--- NOTE | 2022-02-01 14:50 | Hospitalist Progress Note ---
Date of Service February 01, 2022 Assessment & Plan (1) Open wound of left thigh: Plan: Open Wound of L thigh Abscess of L thigh And elongated, deep wound with surrounding inflammation and minimal secretion from the lower end over the anteromedial aspect of left upper thigh Started and deep santibiotic with vanco, cefepime, flagyl Superficial culture although likely to be not helpful, will likely need I and D Wound care consult Blood cultures have been taken and the patient does not meet criteria for sepsis Appreciate surgery input and recommendation for possible surgery but that was canceled early this afternoon We will continue with current antibiotic This is a 56-year-old male who has a significant past medical history of uncontrolled T2DM, HTN, HLD, obesity and MEETA who presents to ED due to worsening of L thigh wound x 3 days. Pt recently moved back from [place], [place]. Hospitalized there 12/27-01/20 2/2 L thigh abscess/cellulitis, that started as abscess. States underwent I and D, completed antibiotics and d/c to home with wound care. Has moved back up here a week and 3 days ago sx started to recur. Hx of cellulitis in past, denies hx of MRSA. Due to no insurance has not been taking any medications for chronic medical conditions (2) Abscess of left thigh: Plan: CT reviewed by the surgeon with the radiologist No abscess collection that needs to be drained Was advised to continue IV antibiotic and wound care Chronic bilateral lower leg skin changes with possible chronic cellulitis (3) T2DM (type 2 diabetes mellitus): Plan: T2DM, uncontrolled due to unable to afford medications place on lantus/novolog protocol obtain a1c in a.m. , pt states in [place] it was > 9 will likely need to coordinate with CM to determine a regimen pt can afford, currently he states he has no income (4) HTN (hypertension): (5) HLD (hyperlipidemia): (6) Diabetic neuropathy: (7) Morbid obesity: Plan Possible SVT per Femur CT ? SVT venous Doppler negative for dvt/svt HTN bp very high on admission, again likely chronic and untreated previously when under care of Dr. Leung was on lisinopril 40mg daily and coreg 3.125mg bid will give 10mg IV labetolol x 1 now will start lisinopril 20mg daily, will need to titrate as needed HLD previously of atorvastatin 80mg daily currently off medication obtain lipid panel in a.m. Morbid Obesity encourage diet and lifestyle modifications DVT ppx: will await surgical consult to determine if to go for I and D, if not recommend adding lovenox DNR/DNI PCP: none, pt wishes to return to [facility], previously saw Dr. Leung, pt will also need assistance with medications as currently he isn't taking any due to unable to afford Admission and Anticipated Discharge Date Admission Date: January 31, 2022 Subjective 02/01/2022 The patient was seen and examined in medical telemetry unit He complains to pain in the left upper thigh and bilateral legs Denies any fever and or chills He has been waiting for wound debridement but that was postponed for today Review of Systems Review of Systems: All systems reviewed and are unremarkable except as noted below Physical Exam Physical Exam: Lying in bed comfortably Constitutional: well developed, well nourished, + ill appearing and + obese Eyes: PERRL, conjunctivae normal, anicteric sclerae ENMT: external ear and nose normal, oropharynx normal Neck: trachea midline, no thyromegaly Respiratory: no respiratory distress Auscultation: lungs clear to auscultation bilaterally Cardiovascular: Rate/Rhythm: regular rate and regular rhythm; not tachycardic Heart Sounds: normal S1 and normal S2; no murmur Extremities: + edema (1+ edema bilaterally with chronic skin changes lower legs with chronic infl) Musculoskeletal: No acute arthritis involving any joint Skin: And elongated deep wound with surrounding inflammation and edema drain is upper anteromedial part of left thigh Neurologic: normal touch/pain/proprioception; + does not move all extremities (Has foot drop on the left foot) Psychiatric: A+Ox3, euthymic affect Lymphatic: no cervical or axillary lymphadenopathy Results & Data Results & Data ([facility]) Vital Signs (Past 12 Hours) Vital Signs Temp Pulse Pulse Resp BP BP Pulse Ox 02/01/22 06:15 82 02/01/22 11:06 37.2 C 81 20 122/76 95 02/01/22 07:33 36.7 C 76 20 138/83 94 02/01/22 03:16 36.6 C 86 20 126/68 96 O2 Del Method 02/01/22 06:15 02/01/22 11:06 Room Air 02/01/22 07:33 Room Air 02/01/22 03:16 Room Air Laboratory Results Short CBC 02/01/22 Range/Units 06:46 WBC 10.76 (4.8-10.8) K/ul Hgb 11.5 L (14.0-18.0) g/dl Hct 34.0 L (40.1-51.0) % Plt Count 299 (130-400) K/uL BMP 02/01/22 06:46 Sodium 138 Potassium 3.5 Chloride 106 Carbon Dioxide 25 BUN 10 Creatinine 0.58 L Glucose 156 H Calcium 9.0 Liver Function 02/01/22 Range/Units 06:46 Total Bilirubin 0.4 (0.2-1.0) mg/dl AST 8 L (13-39) U/L ALT 5 L (7-52) U/L Alkaline Phosphatase 73 (34-104) U/L Albumin 3.2 L (3.4-5.0) gm/dl Medications Administered Current Inpatient Medications Acetaminophen (Acetaminophen 325 Mg Tab) 650 mg PO Q4H PRN PRN Reason: Pain or Fever Stop: 03/02/22 17:54 Al Hydrox/Mg Hydrox/Simethicone (Aluminum/Magnesium Susp 30 Ml Udc) 15 ml PO Q4H PRN PRN Reason: Dyspepsia Stop: 03/02/22 17:54 Dextrose (Dextrose 50% 50 Ml Syringe) 25 - 50 ml IV UD PRN; Protocol PRN Reason: Hypoglycemia Protocol Stop: 03/02/22 17:54 Glucagon (Glucagon For Inj 1 Mg Vial) 1 mg SQ UD PRN; Protocol PRN Reason: Hypoglycemia Protocol Stop: 03/02/22 17:54 Glucose (Glucose 10 Tab/Tube) 4 - 8 tab PO UD PRN; Protocol PRN Reason: Hypoglycemia Treatment Stop: 03/02/22 17:54 Glucose (Glucose 40% Gel 15 Gm Tube) 15 - 30 gm PO UD PRN; Protocol PRN Reason: Hypoglycemia Protocol Stop: 03/02/22 17:54 Cefepime HCl 2,000 mg/ Syringe 20 mls @ 5 mls/min IV Q8H [facility]; Protocol Stop: 02/07/22 17:54 Last Admin: 02/01/22 14:30 Dose: 5 mls/min Metronidazole (Flagyl) 500 mg in 100 mls @ 100 mls/hr IV Q8H [facility] Stop: 02/07/22 17:54 Last Infusion: 02/01/22 13:18 Dose: Infused Vancomycin HCl 1,500 mg/ (Sodium Chloride) 530 mls @ 200 mls/hr IV Q12H [facility] Stop: 02/08/22 03:59 Last Infusion: 02/01/22 08:03 Dose: Infused Insulin Aspart (Insulin Aspart Per Unit) 0 units SC ACHS [facility] Stop: 03/03/22 11:44 Last Admin: 02/01/22 12:10 Dose: 10 units Insulin Glargine (Lantus Per Unit Charge) 0 units SQ HS [facility]; Protocol Stop: 03/03/22 20:59 Lisinopril (Lisinopril 20 Mg Tab) 20 mg PO QAM [facility] Stop: 03/02/22 17:54 Last Admin: 02/01/22 07:49 Dose: 20 mg Magnesium Hydroxide (Magnesium Hydroxide Susp 30 Ml Udc) 30 ml PO Q12H PRN PRN Reason: Constipation Stop: 03/02/22 17:54 Miscellaneous (Carbohydrates For Hypoglycemia ) 15 - 30 gm PO UD PRN PRN Reason: Hypoglycemia Protocol Stop: 03/02/22 17:54 Miscellaneous Information (Vancomycin Consult Active) 1 each N/A UD PRN PRN Reason: Consult Stop: 03/02/22 17:54 Miscellaneous Information (Pharmacy Glycemic Mgmt Consult) 1 each N/A UD PRN; Protocol PRN Reason: Consult Stop: 03/02/22 17:54 Morphine Sulfate (Morphine Sulfate 4 Mg/Ml 1 Ml Carp\Vial) 4 mg IV Q6H PRN PRN Reason: Pain 7-10 Stop: 02/14/22 17:54 Last Admin: 02/01/22 14:30 Dose: 4 mg Ondansetron HCl (Ondansetron Inj 2 Mg/Ml 2 Ml Vial) 4 mg IV Q6H PRN PRN Reason: Nausea Stop: 03/02/22 17:54 Oxycodone HCl (Oxycodone Hcl Ir 5 Mg Tab (Immediate Release)) 5 mg PO Q6H PRN PRN Reason: Pain 1-6 Stop: 02/14/22 17:54 Polyethylene Glycol (Polyethylene (Miralax) 17 Gm Pack) 17 gm PO DAILY PRN PRN Reason: Constipation Stop: 03/02/22 17:54
[2022-02-01] MEDS ORDERED: INSULIN ASPART PER UNIT SC SCH (16:30)
[2022-02-01] MEDS ORDERED: LANTUS PER UNIT CHARGE SQ SCH (21:00)
[2022-02-02] MEDS ORDERED: VANCOMYCIN LEVEL ONE (03:30)
[2022-02-02] MEDS: metroNIDAZOLE 500 MG/100 ML BAG IV SCH ×3 (03:51→21:20)
[2022-02-02 04:31] LABS: Basophils # (auto) 0.08 K/uL (0-0.2); Basophils % (auto) 0.8 %; Eosinophils # (auto) 0.43 K/uL (0-0.50); Eosinophils % (auto) 4.5 %; Hematocrit (blood only) 36.7 % (40.1-51.0); Hemoglobin 12.1 g/dl (14.0-18.0); Immature Granulocytes # (auto) 0.12 K/uL (0.00-0.02); Immature Granulocytes % (auto) 1.2 %; Lymphocytes # (auto) 1.59 K/uL (1.2-3.4); Lymphocytes % (auto) 16.5 %; Mean Corpuscular Volume 94.1 fL (80.0-100.0); Mean Platelet Volume 11.1 fL (9.4-12.4); Monocytes # (auto) 0.87 K/uL (0.24-0.82); Neutrophils # (auto) 6.56 K/uL (1.4-6.5); Platelet Count 336 K/uL (130-400); RDW Coefficient of Variation 14.6 % (11.5-14.5); RDW Standard Deviation 50.6 fL (36.4-46.3); White Blood Count 9.65 K/ul (4.8-10.8)
[2022-02-02] MEDS: VANCOMYCIN HCL 1,500 MG in SODIUM CHLORIDE 0.9% 500 ML IV SCH (04:52)
[2022-02-02 05:18] LABS: Creatinine Clr Calc Pharmacy 186.5 ml/min; Est GFR (African American) 125.2 ml/min; Potassium 3.8 mmol/L (3.5-5.1)
[2022-02-02] MEDS: CEFEPIME 2,000 MG in SYRINGE 0 ML IV SCH ×3 (05:51→22:29)
[2022-02-02] MEDS: lisinopril 20 MG TAB PO SCH (08:24)
[2022-02-02] MEDS: INSULIN ASPART PER UNIT SC SCH ×4 (08:30→21:20)
[2022-02-02] MEDS: MoRPHine SULFATE 4 MG/ML 1 ML CARP\\VIAL IV PRN ×2 (08:30→17:08)
--- NOTE | 2022-02-02 09:31 | Surgery Progress Note ---
Date of Service February 02, 2022 Assessment & Plan (1) Abscess of left thigh: Plan: abcess draining appropriately. sutures from wound bed removed today may need longer term antibiotics. ? ID consult appreciate wound nurses assistance. pt not wanting wound vac at this time will follow along from the periphery Dr. Saez covering for weekend if any issues. (2) Open wound of left thigh: (3) T2DM (type 2 diabetes mellitus): Admission and Anticipated Discharge Date Admission Date: January 31, 2022 Subjective pt seen. feeling ok. no new complaints. Physical Exam Physical Exam: alert/oriented. nad exam unchanged from yesterday regarding wound . Results & Data ([facility]) Vital Signs (Past 12 Hours) Vital Signs Temp Pulse Resp BP Pulse Ox O2 Del Method 02/02/22 07:38 36.7 C 71 20 158/97 H 94 Room Air 02/01/22 22:27 36.9 C 84 20 122/81 93 Room Air PG Care Time/CCT Total # of Minutes Spent Total Time Spent with Patient: Total time spent is greater than 50% in coordination of care (as documented) at patient's floor/unit and/or counseling patient: Coding Level of Care Code 85503 Subseq Hosp Care Lvl 2 Diagnoses Abscess of left thigh L02.416 Open wound of left thigh S71.102A T2DM (type 2 diabetes mellitus) E11.9
--- NOTE | 2022-02-02 12:47 | Pharmacy Report ---
Pharmacy Glycemic Short Note 2 - Date of Service February 02, 2022 - Glycemic Short BSG Results (Last 24 hours): 02/01/22 02/01/22 02/02/22 16:30 20:30 03:53 Glucose 176 H POC Glucose 113 H 123 H 02/02/22 02/02/22 07:58 11:45 Glucose POC Glucose 196 H 134 H OUTPATIENT ANTIDIABETIC REGIMEN: Per patient to CDE; not sure if insulin doses are 100% accurate: * Basaglar 50 units TIDM * Admelog around 24-26 units with meals * history of Trulicity 1.5 mg weekly but unable to get recently * unable to tolerate oral Metformin ASSESSMENT: 02/02: * Patient received 54 units of insulin yesterday; 35 units basal (10 units in AM and 25 units at HS) and 19 units bolus. * BSGs yesterday were [phone] mg/dl. * Fasting BSG today was 196 mg/dl. Increased HS basal dose for tonight to 35 units, none given this morning. * Post-prandial BSGs yesterday were all within goal. Novolog parameters continued the same today. 02/01/22: * 56 y/o M admitted for cellulitis, recently hospitalized for 1 month for the same. * On admission, BSGs have been elevated, A1c today = 7.6% indicating newly diagnosed diabetes. Patient was not any anti-diabetic meds at home. * Patient noted to have high BMI and obesity. * Basal and bolus insulins were ordered last night based on wt and stress of 3. * BSGs trended down to fasting of 156 mg/dl this morning. Patient received total 40 units of insulin last night; 25 units basal and 15 units bolus. * Lantus 10 units added on this morning. BSG trended down to 162 mg/dl pre- lunch. Novolog continued the same as yesterday. * Lantus dose scale ordered for HS. PLAN FOR INPATIENT GLYCEMIC CONTROL: * Basal insulin * Lantus 35 units SQ HS * Bolus insulin * NovoLog per scale ACHS or Q6hrs while NPO * Goal Range: Low 110 mg/dL - High 140 mg/dL * Correction Factor: 15 mg/dL/unit * Nutritional / Prandial insulin per carb ratio of 1 unit per 5 grams CHO consumed
--- NOTE | 2022-02-02 13:39 | Hospitalist Progress Note ---
Date of Service February 02, 2022 Assessment & Plan (1) Open wound of left thigh: Plan: Open Wound of L thigh Abscess of L thigh An elongated, deep wound with surrounding inflammation and minimal secretion from the lower end over the anteromedial aspect of left upper thigh-please see the picture of the wound Started with IV vanco, cefepime, flagyl Wound culture is growing Pseudomonas aeruginosa #1 and #2 and group B streptoc occal Wound care consult-appreciate input and recommendation Blood cultures have been taken and the patient does not meet criteria for sepsis Appreciate surgery input and recommendation for conservative management-No significant collection/abscess to drain The wound has been improving as per the patient Vancomycin has been discontinued as of 02/02/2022 ID consult is placed for direction and duration of antibiotic Might be helpful with wound VAC placement This is a 56-year-old male who has a significant past medical history of uncontrolled T2DM, HTN, HLD, obesity and MEETA who presents to ED due to worsening of L thigh wound x 3 days. Pt recently moved back from [place], [place]. Hospitalized there 12/27-01/20 2/2 L thigh abscess/cellulitis, that started as abscess. States underwent I and D, completed antibiotics and d/c to home with wound care. Has moved back up here a week and 3 days ago sx started to recur. Hx of cellulitis in past, denies hx of MRSA. Due to no insurance has not been taking any medications for chronic medical conditions (2) Abscess of left thigh: Plan: CT reviewed by the surgeon with the radiologist No abscess collection that needs to be drained Was advised to continue IV antibiotic and wound care ID is consulted Chronic bilateral lower leg skin changes with possible chronic cellulitis/i nflammation (3) T2DM (type 2 diabetes mellitus): Plan: T2DM, uncontrolled due to unable to afford medications place on lantus/novolog protocol obtain a1c in a.m. , pt states in [place] it was > 9 will likely need to coordinate with CM to determine a regimen pt can afford, currently he states he has no income Hemoglobin A1c 7.6 Dietitian has been consulted for diabetic teaching (4) HTN (hypertension): Plan: BP was very high on admission, again likely chronic and untreated previously when under care of Dr. Leung was on lisinopril 40mg daily and coreg 3.125mg bid will give 10mg IV labetolol x 1 now will start lisinopril 20mg daily, will need to titrate as needed Blood pressure remains high at 158/97 (5) HLD (hyperlipidemia): Plan: Previously of atorvastatin 80mg daily Currently off medication Obtain lipid panel in a.m. We will discuss about restarting statin (6) Diabetic neuropathy: (7) Morbid obesity: Plan Possible SVT per Femur CT ? SVT venous Doppler negative for dvt/svt Morbid Obesity encourage diet and lifestyle modifications DVT ppx: will await surgical consult to determine if to go for I and D, if not recommend adding lovenox Will start Lovenox DNR/DNI PCP: none, pt wishes to return to [facility], previously saw Dr. Leung, pt will also need assistance with medications as currently he isn't taking any due to unable to afford Admission and Anticipated Discharge Date Admission Date: January 31, 2022 Subjective 02/01/2022 The patient was seen and examined in medical telemetry unit He complains to pain in the left upper thigh and bilateral legs Denies any fever and or chills He has been waiting for wound debridement but that was postponed for today 02/02/2022 The patient was seen and examined in medical floor He has been feeling a little better and denies any significant pain and/or drainage from the left upper thigh wound His blood sugar has been running a little bit high Is going to have dietitian to advise him about the diet Review of Systems Review of Systems: All systems reviewed and are unremarkable except as noted below Physical Exam Physical Exam: Lying in bed comfortably Constitutional: well developed, well nourished, + ill appearing and + obese Eyes: PERRL, conjunctivae normal, anicteric sclerae ENMT: external ear and nose normal, oropharynx normal Neck: trachea midline, no thyromegaly Respiratory: no respiratory distress Auscultation: lungs clear to auscultation bilaterally Cardiovascular: Rate/Rhythm: regular rate and regular rhythm; not tachycardic Heart Sounds: normal S1 and normal S2; no murmur Extremities: + edema (1+ edema bilaterally with chronic skin changes lower legs with chronic infl) Gastrointestinal (Abdomen): Inspection/Auscultation: normal bowel sounds; abdomen not distended Percussion/Palpation: abdomen soft; abdomen nontender Musculoskeletal: No acute arthritis involving any joint. Has significant neuropathy with increased sensation in the legs Neurologic: normal touch/pain/proprioception; + does not move all extremities (Has foot drop on the left foot) Psychiatric: A+Ox3, euthymic affect Lymphatic: no cervical or axillary lymphadenopathy Results & Data Results & Data ([facility]) Vital Signs (Past 12 Hours) Vital Signs Temp Pulse Resp BP Pulse Ox O2 Del Method 02/02/22 09:00 Room Air 02/02/22 07:38 36.7 C 71 20 158/97 H 94 Room Air Laboratory Results Short CBC 02/02/22 Range/Units 03:53 WBC 9.65 (4.8-10.8) K/ul Hgb 12.1 L (14.0-18.0) g/dl Hct 36.7 L (40.1-51.0) % Plt Count 336 (130-400) K/uL BMP 02/02/22 03:53 Sodium 137 Potassium 3.8 Chloride 105 Carbon Dioxide 27 BUN 13 Creatinine 0.65 Glucose 176 H Calcium 9.0 Medications Administered Current Inpatient Medications Acetaminophen (Acetaminophen 325 Mg Tab) 650 mg PO Q4H PRN PRN Reason: Pain or Fever Stop: 03/02/22 17:54 Al Hydrox/Mg Hydrox/Simethicone (Aluminum/Magnesium Susp 30 Ml Udc) 15 ml PO Q4H PRN PRN Reason: Dyspepsia Stop: 03/02/22 17:54 Dextrose (Dextrose 50% 50 Ml Syringe) 25 - 50 ml IV UD PRN; Protocol PRN Reason: Hypoglycemia Protocol Stop: 03/02/22 17:54 Glucagon (Glucagon For Inj 1 Mg Vial) 1 mg SQ UD PRN; Protocol PRN Reason: Hypoglycemia Protocol Stop: 03/02/22 17:54 Glucose (Glucose 10 Tab/Tube) 4 - 8 tab PO UD PRN; Protocol PRN Reason: Hypoglycemia Treatment Stop: 03/02/22 17:54 Glucose (Glucose 40% Gel 15 Gm Tube) 15 - 30 gm PO UD PRN; Protocol PRN Reason: Hypoglycemia Protocol Stop: 03/02/22 17:54 Cefepime HCl 2,000 mg/ Syringe 20 mls @ 5 mls/min IV Q8H [facility]; Protocol Stop: 02/07/22 17:54 Last Admin: 02/02/22 05:51 Dose: 5 mls/min Metronidazole (Flagyl) 500 mg in 100 mls @ 100 mls/hr IV Q8H [facility] Stop: 02/07/22 17:54 Last Infusion: 02/02/22 12:42 Dose: Infused Vancomycin HCl 2,000 mg/ (Sodium Chloride) 540 mls @ 200 mls/hr IV Q12H [facility]; Protocol Stop: 02/07/22 13:59 Insulin Aspart (Insulin Aspart Per Unit) 0 units SC ACHS [facility] Stop: 03/03/22 11:44 Last Admin: 02/02/22 13:14 Dose: 9 units Insulin Glargine (Lantus Per Unit Charge) 35 units SQ HS [facility] Stop: 03/04/22 20:59 Lisinopril (Lisinopril 20 Mg Tab) 20 mg PO QAM [facility] Stop: 03/02/22 17:54 Last Admin: 02/02/22 08:24 Dose: 20 mg Magnesium Hydroxide (Magnesium Hydroxide Susp 30 Ml Udc) 30 ml PO Q12H PRN PRN Reason: Constipation Stop: 03/02/22 17:54 Miscellaneous (Carbohydrates For Hypoglycemia ) 15 - 30 gm PO UD PRN PRN Reason: Hypoglycemia Protocol Stop: 03/02/22 17:54 Miscellaneous Information (Vancomycin Consult Active) 1 each N/A UD PRN PRN Reason: Consult Stop: 03/02/22 17:54 Miscellaneous Information (Pharmacy Glycemic Mgmt Consult) 1 each N/A UD PRN; Protocol PRN Reason: Consult Stop: 03/02/22 17:54 Morphine Sulfate (Morphine Sulfate 4 Mg/Ml 1 Ml Carp\Vial) 4 mg IV Q6H PRN PRN Reason: Pain 7-10 Stop: 02/14/22 17:54 Last Admin: 02/02/22 08:30 Dose: 4 mg Ondansetron HCl (Ondansetron Inj 2 Mg/Ml 2 Ml Vial) 4 mg IV Q6H PRN PRN Reason: Nausea Stop: 03/02/22 17:54 Oxycodone HCl (Oxycodone Hcl Ir 5 Mg Tab (Immediate Release)) 5 mg PO Q6H PRN PRN Reason: Pain 1-6 Stop: 02/14/22 17:54 Polyethylene Glycol (Polyethylene (Miralax) 17 Gm Pack) 17 gm PO DAILY PRN PRN Reason: Constipation Stop: 03/02/22 17:54
[2022-02-02] MEDS: VANCOMYCIN HCL 2,000 MG in SODIUM CHLORIDE 0.9% 500 ML IV SCH (13:44)
[2022-02-02] MEDS: ENOXAPARIN INJ 40 MG/0.4 ML SYR SQ SCH (14:19)
--- NOTE | 2022-02-02 15:35 | Pharmacy Report ---
Pharmacy PK ABX Note - Date of Service February 02, 2022 - Assessment and Plan Assessment 56 year old M receiving vancomycin/cefepime/Flagyl for treatment of thigh cellulitis. Patient was previously hospitalized x 1 month in [place] and received unknown antibiotics. Blood cultures no growth. Wound culture grew Pseudomonas aeruginosa, sensitive to Cefepime Day #3 of antimicrobial therapy. Plan Vancomycin * Current regimen: Vancomycin 1500 mg IV every 12 hours * Trough level obtained today resulted as 8.9 mcg/mL. This is sub-therapeutic * Change to 2000 mg IV every 12 hours * Predicted AUC at steady state: 548 mg/L.hr * Will repeat level in the next 48-72 hours if therapy is continued and/or change in patient clinical status Pharmacy will continue to follow and will adjust dose/frequency as necessary. Thank you. Pharmacy has transitioned to AUC monitoring for vancomycin. AUC/MIGUEL is the preferred PK/PD target and is associated with decreased risk of nephrotoxicity compared to traditional trough targets.
[2022-02-02] MEDS ORDERED: LANTUS PER UNIT CHARGE SQ SCH ×2 (21:00)
[2022-02-03] MEDS: metroNIDAZOLE 500 MG/100 ML BAG IV SCH ×3 (04:40→20:36)
[2022-02-03] MEDS: CEFEPIME 2,000 MG in SYRINGE 0 ML IV SCH ×3 (05:44→21:18)
[2022-02-03] MEDS: VANCOMYCIN HCL 2,000 MG in SODIUM CHLORIDE 0.9% 500 ML IV SCH (05:49)
[2022-02-03 07:35] LABS: Creatinine Clr Calc Pharmacy 195.5 ml/min; Est GFR (African American) 127.6 ml/min; Est GFR (Non-African American) 110.1 ml/min
[2022-02-03] MEDS: ENOXAPARIN INJ 40 MG/0.4 ML SYR SQ SCH (07:53)
[2022-02-03] MEDS: oxyCODONE HCL IR 5 MG TAB (IMMEDIATE RELEASE) PO PRN ×2 (07:53→14:11)
[2022-02-03] MEDS: lisinopril 20 MG TAB PO SCH (07:53)
[2022-02-03] MEDS: INSULIN ASPART PER UNIT SC SCH ×4 (08:28→20:35)
[2022-02-03] MEDS: MICONAZOLE NITRATE POWDER 43 GM EXT PRN (09:02)
--- NOTE | 2022-02-03 12:24 | Hospitalist Progress Note ---
Date of Service February 03, 2022 Assessment & Plan (1) Open wound of left thigh: Plan: Open Wound of L thigh Abscess of L thigh An elongated, deep wound with surrounding inflammation and minimal secretion from the lower end over the anteromedial aspect of left upper thigh-please see the picture of the wound Started with IV vanco, cefepime, flagyl Wound culture is growing Pseudomonas aeruginosa #1 and #2 and group B streptoc occal Wound care consult-appreciate input and recommendation Blood cultures have been taken and the patient does not meet criteria for sepsis Appreciate surgery input and recommendation for conservative management-No significant collection/abscess to drain The wound has been improving as per the patient Vancomycin has been discontinued as of 02/02/2022 ID consult is placed for direction and duration of antibiotic Might be helpful with wound VAC placement Appreciate ID input and recommendation Vancomycin has been discontinued and the patient is on cefepime IV for now He will be given oral Cipro and Augmentin to complete a course of 14 days in total on discharge Will have wound care management as an outpatient and follow-up with the primary care provider This is a 56-year-old male who has a significant past medical history of uncontrolled T2DM, HTN, HLD, obesity and MEETA who presents to ED due to worsening of L thigh wound x 3 days. Pt recently moved back from [place], [place]. Hospitalized there 12/27-01/20 2/2 L thigh abscess/cellulitis, that started as abscess. States underwent I and D, completed antibiotics and d/c to home with wound care. Has moved back up here a week and 3 days ago sx started to recur. Hx of cellulitis in past, denies hx of MRSA. 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 , pt states in [place] it was > 9 will likely need to coordinate with CM to determine a regimen pt can afford, currently he states he has no income Hemoglobin A1c 7.6 Dietitian has been consulted for diabetic teaching (4) HTN (hypertension): Plan: BP was very high on admission, again likely chronic and untreated previously when under care of Dr. Leung was on lisinopril 40mg daily and coreg 3.125mg bid will give 10mg IV labetolol x 1 now will start lisinopril 20mg daily, will need to titrate as needed Blood pressure remains high at 158/97 Blood pressure is controlled (5) HLD (hyperlipidemia): Plan: Previously of atorvastatin 80mg daily Currently off medication Obtain lipid panel in a.m. We will discuss about restarting statin (6) Diabetic neuropathy: (7) Morbid obesity: Plan Possible SVT per Femur CT ? SVT venous Doppler negative for dvt/svt Morbid Obesity encourage diet and lifestyle modifications DVT ppx: will await surgical consult to determine if to go for I and D, if not recommend adding lovenox Will start Lovenox DNR/DNI PCP: none, pt wishes to return to [facility], previously saw Dr. Leung, pt will also need assistance with medications as currently he isn't taking any due to unable to afford Admission and Anticipated Discharge Date Admission Date: January 31, 2022 Subjective 02/01/2022 The patient was seen and examined in medical telemetry unit He complains to pain in the left upper thigh and bilateral legs Denies any fever and or chills He has been waiting for wound debridement but that was postponed for today 02/02/2022 The patient was seen and examined in medical floor He has been feeling a little better and denies any significant pain and/or drainage from the left upper thigh wound His blood sugar has been running a little bit high Is going to have dietitian to advise him about the diet 02/03/2022 The patient was seen and examined in medical floor His pain in the left upper thigh seems to be improving swelling of the left upper thigh is improving too No fever and or chills, The IV team has had difficulty in putting a peripheral line Review of Systems Review of Systems: All systems reviewed and are unremarkable except as noted below Physical Exam Physical Exam: Lying in bed comfortably Constitutional: well developed, well nourished, + ill appearing and + obese Eyes: PERRL, conjunctivae normal, anicteric sclerae ENMT: external ear and nose normal, oropharynx normal Neck: trachea midline, no thyromegaly Respiratory: no respiratory distress Auscultation: lungs clear to auscu ltation bilaterally Cardiovascular: Rate/Rhythm: regular rate and regular rhythm; not tachycardic Heart Sounds: normal S1 and normal S2; no murmur Extremities: + edema (1+ edema bilaterally with chronic skin changes lower legs with chronic infl) Gastrointestinal (Abdomen): Inspection/Auscultation: normal bowel sounds; abdomen not distended Percussion/Palpation: abdomen soft; abdomen nontender Neurologic: normal touch/pain/proprioception; + does not move all extremities (Has foot drop on the left foot) Psychiatric: A+Ox3, euthymic affect Lymphatic: no cervical or axillary lymphadenopathy Results & Data Results & Data ([facility]) Vital Signs (Past 12 Hours) Vital Signs Temp Pulse Resp BP Pulse Ox O2 Del Method 02/03/22 08:00 Room Air 02/03/22 06:52 36.5 C 73 20 135/80 94 Room Air 02/03/22 04:00 36.6 C 76 20 152/90 H 95 Room Air Laboratory Results [facility] 02/03/22 06:13 Creatinine 0.62 Medications Administered Current Inpatient Medications Acetaminophen (Acetaminophen 325 Mg Tab) 650 mg PO Q4H PRN PRN Reason: Pain or Fever Stop: 03/02/22 17:54 Al Hydrox/Mg Hydrox/Simethicone (Aluminum/Magnesium Susp 30 Ml Udc) 15 ml PO Q4H PRN PRN Reason: Dyspepsia Stop: 03/02/22 17:54 Dextrose (Dextrose 50% 50 Ml Syringe) 25 - 50 ml IV UD PRN; Protocol PRN Reason: Hypoglycemia Protocol Stop: 03/02/22 17:54 Enoxaparin Sodium (Enoxaparin Inj 40 Mg/0.4 Ml Syr) 40 mg SQ QAM [facility] Stop: 03/04/22 13:59 Last Admin: 02/03/22 07:53 Dose: 40 mg Glucagon (Glucagon For Inj 1 Mg Vial) 1 mg SQ UD PRN; Protocol PRN Reason: Hypoglycemia Protocol Stop: 03/02/22 17:54 Glucose (Glucose 10 Tab/Tube) 4 - 8 tab PO UD PRN; Protocol PRN Reason: Hypoglycemia Treatment Stop: 03/02/22 17:54 Glucose (Glucose 40% Gel 15 Gm Tube) 15 - 30 gm PO UD PRN; Protocol PRN Reason: Hypoglycemia Protocol Stop: 03/02/22 17:54 Cefepime HCl 2,000 mg/ Syringe 20 mls @ 5 mls/min IV Q8H [facility]; Protocol Stop: 02/07/22 17:54 Last Admin: 02/03/22 05:44 Dose: 5 mls/min Metronidazole (Flagyl) 500 mg in 100 mls @ 100 mls/hr IV Q8H [facility] Stop: 02/07/22 17:54 Last Admin: 02/03/22 12:02 Dose: 100 mls/hr Insulin Aspart (Insulin Aspart Per Unit) 0 units SC ACHS [facility] Stop: 03/03/22 11:44 Last Admin: 02/03/22 12:07 Dose: 7 units Insulin Glargine (Lantus Per Unit Charge) 35 units SQ HS [facility] Stop: 03/04/22 20:59 Last Admin: 02/02/22 21:20 Dose: 35 units Lisinopril (Lisinopril 20 Mg Tab) 20 mg PO QAM [facility] Stop: 03/02/22 17:54 Last Admin: 02/03/22 07:53 Dose: 20 mg Magnesium Hydroxide (Magnesium Hydroxide Susp 30 Ml Udc) 30 ml PO Q12H PRN PRN Reason: Constipation Stop: 03/02/22 17:54 Miconazole Nitrate (Miconazole Nitrate Powder 43 Gm) 1 appln EXT PRN PRN PRN Reason: Affected Skin Folds Stop: 03/05/22 06:57 Last Admin: 02/03/22 09:02 Dose: 1 appln Miscellaneous (Carbohydrates For Hypoglycemia ) 15 - 30 gm PO UD PRN PRN Reason: Hypoglycemia Protocol Stop: 03/02/22 17:54 Miscellaneous Information (Pharmacy Glycemic Mgmt Consult) 1 each N/A UD PRN; Protocol PRN Reason: Consult Stop: 03/02/22 17:54 Morphine Sulfate (Morphine Sulfate 4 Mg/Ml 1 Ml Carp\Vial) 4 mg IV Q6H PRN PRN Reason: Pain 7-10 Stop: 02/14/22 17:54 Last Admin: 02/02/22 17:08 Dose: 4 mg Ondansetron HCl (Ondansetron Inj 2 Mg/Ml 2 Ml Vial) 4 mg IV Q6H PRN PRN Reason: Nausea Stop: 03/02/22 17:54 Oxycodone HCl (Oxycodone Hcl Ir 5 Mg Tab (Immediate Release)) 5 mg PO Q6H PRN PRN Reason: Pain 1-6 Stop: 02/14/22 17:54 Last Admin: 02/03/22 07:53 Dose: 5 mg Polyethylene Glycol (Polyethylene (Miralax) 17 Gm Pack) 17 gm PO DAILY PRN PRN Reason: Constipation Stop: 03/02/22 17:54
[2022-02-03] MEDS ORDERED: LANTUS PER UNIT CHARGE SQ SCH (21:00)
[2022-02-03] MEDS: MoRPHine SULFATE 4 MG/ML 1 ML CARP\\VIAL IV PRN (22:50)
[2022-02-04] MEDS: metroNIDAZOLE 500 MG/100 ML BAG IV SCH ×3 (03:57→20:04)
[2022-02-04] MEDS: oxyCODONE HCL IR 5 MG TAB (IMMEDIATE RELEASE) PO PRN ×2 (04:02→11:12)
[2022-02-04] MEDS: CEFEPIME 2,000 MG in SYRINGE 0 ML IV SCH ×3 (05:04→21:01)
[2022-02-04] MEDS: MoRPHine SULFATE 4 MG/ML 1 ML CARP\\VIAL IV PRN ×2 (07:12→22:18)
[2022-02-04] MEDS: ENOXAPARIN INJ 40 MG/0.4 ML SYR SQ SCH (08:15)
[2022-02-04] MEDS: MICONAZOLE NITRATE POWDER 43 GM EXT PRN (08:16)
[2022-02-04] MEDS: INSULIN ASPART PER UNIT SC SCH ×4 (08:21→20:04)
[2022-02-04] MEDS: lisinopril 20 MG TAB PO SCH (09:02)
--- NOTE | 2022-02-04 11:42 | Hospitalist Progress Note ---
Date of Service February 04, 2022 Assessment & Plan (1) Open wound of left thigh: Plan: Open Wound of L thigh Abscess of L thigh An elongated, deep wound with surrounding inflammation and minimal secretion from the lower end over the anteromedial aspect of left upper thigh-please see the picture of the wound Started with IV vanco, cefepime, flagyl Wound culture is growing Pseudomonas aeruginosa #1 and #2 and group B streptoc occal Wound care consult-appreciate input and recommendation Blood cultures have been taken and the patient does not meet criteria for sepsis Appreciate surgery input and recommendation for conservative management-No significant collection/abscess to drain The wound has been improving as per the patient Vancomycin has been discontinued as of 02/02/2022 ID consult is placed for direction and duration of antibiotic Might be helpful with wound VAC placement Appreciate ID input and recommendation Vancomycin has been discontinued and the patient is on cefepime IV for now He will be given oral Cipro and Augmentin to complete a course of 14 days in total on discharge Will have wound care management as an outpatient and follow-up with the primary care provider Minimal swelling involving the medial aspect of the left thigh with tenderness and some redness Will apply local diclofenac sodium and moist heat and continue current pain medications Likely discharge tomorrow This is a 56-year-old male who has a significant past medical history of uncontrolled T2DM, HTN, HLD, obesity and MEETA who presents to ED due to worsening of L thigh wound x 3 days. Pt recently moved back from [place], [place]. Hospitalized there 12/27-01/20 2/2 L thigh abscess/cellulitis, that started as abscess. States underwent I and D, completed antibiotics and d/c to home with wound care. Has moved back up here a week and 3 days ago sx started to recur. Hx of cellulitis in past, denies hx of MRSA. 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 (2) Abscess of left thigh: Plan: CT reviewed by the surgeon with the radiologist No abscess collection that needs to be drained Was advised to continue IV antibiotic and wound care ID is consulted-appreciate input and recommendation Does not require any IV and D as per the surgeon There is no fluctuation and doubt any abscess to drain Like to be discharged tomorrow Chronic bilateral lower leg skin changes with possible chronic cellulitis/inflammation Has improved a lot (3) T2DM (type 2 diabetes mellitus): Plan: T2DM, uncontrolled due to unable to afford medications place on lantus/novolog protocol obtain a1c in a.m. , pt states in [place] it was > 9 will likely need to coordinate with CM to determine a regimen pt can afford, currently he states he has no income Hemoglobin A1c 7.6 Dietitian has been consulted for diabetic teaching (4) HTN (hypertension): Plan: BP was very high on admission, again likely chronic and untreated previously when under care of Dr. Leung was on lisinopril 40mg daily and coreg 3.125mg bid will give 10mg IV labetolol x 1 now will start lisinopril 20mg daily, will need to titrate as needed Blood pressure remains high at 158/97 Blood pressure is controlled (5) HLD (hyperlipidemia): Plan: Previously of atorvastatin 80mg daily Currently off medication Obtain lipid panel in a.m. We will discuss about restarting statin (6) Diabetic neuropathy: (7) Morbid obesity: Plan Possible SVT per Femur CT ? SVT venous Doppler negative for dvt/svt Morbid Obesity encourage diet and lifestyle modifications DVT ppx: will await surgical consult to determine if to go for I and D, if not recommend adding lovenox Will start Lovenox DNR/DNI PCP: none, pt wishes to return to [facility], previously saw Dr. Leung, pt will also need assistance with medications as currently he isn't taking any due to unable to afford Admission and Anticipated Discharge Date Admission Date: January 31, 2022 Subjective 02/01/2022 The patient was seen and examined in medical telemetry unit He complains to pain in the left upper thigh and bilateral legs Denies any fever and or chills He has been waiting for wound debridement but that was postponed for today 02/02/2022 The patient was seen and examined in medical floor He has been feeling a little better and denies any significant pain and/or drainage from the left upper thigh wound His blood sugar has been running a little bit high Is going to have dietitian to advise him about the diet 02/03/2022 The patient was seen and examined in medical floor His pain in the left upper thigh seems to be improving swelling of the left upper thigh is improving too No fever and or chills, The IV team has had difficulty in putting a peripheral line 02/04/2022 The patient was seen and examined in medical floor He complains to have swelling and pain around mid medial thigh on the left side Denies any fever and or chills Pain is increased Review of Systems Review of Systems: All systems reviewed and are unremarkable except as noted below Physical Exam Physical Exam: Lying in bed comfortably Constitutional: well developed, well nourished, + ill appearing and + obese Eyes: PERRL, conjunctivae normal, anicteric sclerae ENMT: external ear and nose normal, oropharynx normal Neck: trachea midline, no thyromegaly Respiratory: no respiratory distress Auscultation: lungs clear to auscultation bilaterally Cardiovascular: Rate/Rhythm: regular rate and regular rhythm; not tachycardic Heart Sounds: normal S1 and normal S2; no murmur Extremities: + edema (1+ edema bilaterally with chronic skin changes lower legs with chronic infl) Gastrointestinal (Abdomen): Inspection/Auscultation: normal bowel sounds; abdomen not distended Percussion/Palpation: abdomen soft; abdomen nontender Musculoskeletal: Palpable lump about 5 cm over mid medial aspect of left thigh with tenderness and increased local temperature without any fluctuation Neurologic: normal touch/pain/proprioception; + does not move all extremities (Has foot drop on the left foot) Psychiatric: A+Ox3, euthymic affect Lymphatic: no cervical or axillary lymphadenopathy Results & Data Results & Data ([facility]) Vital Signs (Past 12 Hours) Vital Signs Temp Pulse Resp BP Pulse Ox O2 Del Method 02/04/22 08:15 37.1 C 76 18 160/87 H 95 Room Air Medications Administered Current Inpatient Medications Acetaminophen (Acetaminophen 325 Mg Tab) 650 mg PO Q4H PRN PRN Reason: Pain or Fever Stop: 03/02/22 17:54 Last Admin: 02/03/22 17:01 Dose: 650 mg Al Hydrox/Mg Hydrox/Simethicone (Aluminum/Magnesium Susp 30 Ml Udc) 15 ml PO Q4H PRN PRN Reason: Dyspepsia Stop: 03/02/22 17:54 Dextrose (Dextrose 50% 50 Ml Syringe) 25 - 50 ml IV UD PRN; Protocol PRN Reason: Hypoglycemia Protocol Stop: 03/02/22 17:54 Diclofenac Sodium (Diclofenac Sod 1% Gel 100 Gm Tube) 2 gm EXT QID [facility]; Protocol Stop: 03/06/22 12:59 Enoxaparin Sodium (Enoxaparin Inj 40 Mg/0.4 Ml Syr) 40 mg SQ QAM [facility] Stop: 03/04/22 13:59 Last Admin: 02/04/22 08:15 Dose: 40 mg Glucagon (Glucagon For Inj 1 Mg Vial) 1 mg SQ UD PRN; Protocol PRN Reason: Hypoglycemia Protocol Stop: 03/02/22 17:54 Glucose (Glucose 10 Tab/Tube) 4 - 8 tab PO UD PRN; Protocol PRN Reason: Hypoglycemia Treatment Stop: 03/02/22 17:54 Glucose (Glucose 40% Gel 15 Gm Tube) 15 - 30 gm PO UD PRN; Protocol PRN Reason: Hypoglycemia Protocol Stop: 03/02/22 17:54 Cefepime HCl 2,000 mg/ Syringe 20 mls @ 5 mls/min IV Q8H [facility]; Protocol Stop: 02/07/22 17:54 Last Admin: 02/04/22 05:04 Dose: 5 mls/min Metronidazole (Flagyl) 500 mg in 100 mls @ 100 mls/hr IV Q8H [facility] Stop: 02/07/22 17:54 Last Infusion: 02/04/22 05:01 Dose: Infused Insulin Aspart (Insulin Aspart Per Unit) 0 units SC ACHS [facility] Stop: 03/03/22 11:44 Last Admin: 02/04/22 08:21 Dose: 11 units Insulin Glargine (Lantus Per Unit Charge) 40 units SQ HS [facility] Stop: 03/05/22 20:59 Last Admin: 02/03/22 20:15 Dose: 40 units Lisinopril (Lisinopril 20 Mg Tab) 20 mg PO QAM [facility] Stop: 03/02/22 17:54 Last Admin: 02/04/22 09:02 Dose: 20 mg Magnesium Hydroxide (Magnesium Hydroxide Susp 30 Ml Udc) 30 ml PO Q12H PRN PRN Reason: Constipation Stop: 03/02/22 17:54 Miconazole Nitrate (Miconazole Nitrate Powder 43 Gm) 1 appln EXT PRN PRN PRN Reason: Affected Skin Folds Stop: 03/05/22 06:57 Last Admin: 02/04/22 08:16 Dose: 1 appln Miscellaneous (Carbohydrates For Hypoglycemia ) 15 - 30 gm PO UD PRN PRN Reason: Hypoglycemia Protocol Stop: 03/02/22 17:54 Miscellaneous Information (Pharmacy Glycemic Mgmt Consult) 1 each N/A UD PRN; Protocol PRN Reason: Consult Stop: 03/02/22 17:54 Morphine Sulfate (Morphine Sulfate 4 Mg/Ml 1 Ml Carp\Vial) 4 mg IV Q6H PRN PRN Reason: Pain 7-10 Stop: 02/14/22 17:54 Last Admin: 02/04/22 07:12 Dose: 4 mg Ondansetron HCl (Ondansetron Inj 2 Mg/Ml 2 Ml Vial) 4 mg IV Q6H PRN PRN Reason: Nausea Stop: 03/02/22 17:54 Oxycodone HCl (Oxycodone Hcl Ir 5 Mg Tab (Immediate Release)) 5 mg PO Q6H PRN PRN Reason: Pain 1-6 Stop: 02/14/22 17:54 Last Admin: 02/04/22 11:12 Dose: 5 mg Polyethylene Glycol (Polyethylene (Miralax) 17 Gm Pack) 17 gm PO DAILY PRN PRN Reason: Constipation Stop: 03/02/22 17:54
[2022-02-04] MEDS: DICLOFENAC SOD 1% GEL 100 GM TUBE EXT SCH ×3 (12:10→20:04)
[2022-02-04] MEDS ORDERED: LANTUS PER UNIT CHARGE SQ SCH (21:00)
[2022-02-05] MEDS: metroNIDAZOLE 500 MG/100 ML BAG IV SCH ×3 (04:43→20:51)
[2022-02-05] MEDS: CEFEPIME 2,000 MG in SYRINGE 0 ML IV SCH ×3 (05:40→20:51)
[2022-02-05] MEDS: DICLOFENAC SOD 1% GEL 100 GM TUBE EXT SCH ×4 (09:12→20:54)
[2022-02-05] MEDS: lisinopril 20 MG TAB PO SCH (09:13)
[2022-02-05] MEDS: ENOXAPARIN INJ 40 MG/0.4 ML SYR SQ SCH (09:13)
[2022-02-05] MEDS: INSULIN ASPART PER UNIT SC SCH ×4 (09:16→20:43)
--- NOTE | 2022-02-05 12:53 | Pharmacy Report ---
Pharmacy Glycemic Short Note 2 - Date of Service February 05, 2022 - Glycemic Short BSG Results (Last 24 hours): 02/04/22 02/04/22 02/05/22 16:36 19:46 07:43 POC Glucose 115 H 147 H 123 H 02/05/22 11:26 POC Glucose 126 H OUTPATIENT ANTIDIABETIC REGIMEN: Per patient to CDE; not sure if insulin doses are 100% accurate: * Basaglar 50 units TIDM * Admelog around 24-26 units with meals * history of Trulicity 1.5 mg weekly but unable to get recently * unable to tolerate oral Metformin HbA1c: 7.6% (02/01/22) ASSESSMENT: 02/05: * Received 71 units of insulin yesterday, significant improving in fasting BSG overnight (181 vs. 123 mg/dL) * Will plan to maintain current Novolog parameters, but will decrease Lantus today in light of improved fasting 02/02: * Patient received 54 units of insulin yesterday; 35 units basal (10 units in AM and 25 units at HS) and 19 units bolus. * BSGs yesterday were [id number] mg/dl. * Fasting BSG today was 196 mg/dl. Increased HS basal dose for tonight to 35 units, none given this morning. * Post-prandial BSGs yesterday were all within goal. Novolog parameters continued the same today. 02/01/22: * 56 y/o M admitted for cellulitis, recently hospitalized for 1 month for the same. * On admission, BSGs have been elevated, A1c today = 7.6% indicating newly diagnosed diabetes. Patient was not any anti-diabetic meds at home. * Patient noted to have high BMI and obesity. * Basal and bolus insulins were ordered last night based on wt and stress of 3. * BSGs trended down to fasting of 156 mg/dl this morning. Patient received total 40 units of insulin last night; 25 units basal and 15 units bolus. * Lantus 10 units added on this morning. BSG trended down to 162 mg/dl pre- lunch. Novolog continued the same as yesterday. * Lantus dose scale ordered for HS. PLAN FOR INPATIENT GLYCEMIC CONTROL: * Basal insulin * Lantus 40 units SQ HS * Bolus insulin * NovoLog per scale ACHS or Q6hrs while NPO * Goal Range: Low 110 mg/dL - High 140 mg/dL * Correction Factor: 18 mg/dL/unit * Nutritional / Prandial insulin per carb ratio of 1 unit per 6 grams CHO consumed
--- NOTE | 2022-02-05 15:48 | Hospitalist Progress Note ---
Date of Service February 05, 2022 Assessment & Plan (1) Open wound of left thigh: Plan: Open Wound of L thigh Abscess of L thigh An elongated, deep wound with surrounding inflammation and minimal secretion from the lower end over the anteromedial aspect of left upper thigh-please see the picture of the wound Started with IV vanco, cefepime, flagyl Wound culture is growing Pseudomonas aeruginosa #1 and #2 and group B streptoc occal Wound care consult-appreciate input and recommendation Blood cultures have been taken and the patient does not meet criteria for sepsis Appreciate surgery input and recommendation for conservative management-No significant collection/abscess to drain The wound has been improving as per the patient Vancomycin has been discontinued as of 02/02/2022 ID consult is placed for direction and duration of antibiotic Might be helpful with wound VAC placement Appreciate ID input and recommendation Vancomycin has been discontinued and the patient is on cefepime IV for now He will be given oral Cipro and Augmentin to complete a course of 14 days in total on discharge Will have wound care management as an outpatient and follow-up with the primary care provider Minimal swelling involving the medial aspect of the left thigh with tenderness and some redness Will apply local diclofenac sodium and moist heat and continue current pain medications His left thigh swelling and tenderness have been improving No fever and or chills and clinically stable-likely to be discharged tomorrow This is a 56-year-old male who has a significant past medical history of uncontrolled T2DM, HTN, HLD, obesity and MEETA who presents to ED due to worsening of L thigh wound x 3 days. Pt recently moved back from [place], [place]. Hospitalized there 12/27-01/20 2/2 L thigh abscess/cellulitis, that started as abscess. States underwent I and D, completed antibiotics and d/c to home with wound care. Has moved back up here a week and 3 days ago sx started to recur. Hx of cellulitis in past, denies hx of MRSA. Due to no insurance has not been taking any medications for chronic medical conditions Likely discharge tomorrow (2) Abscess of left thigh: Plan: CT reviewed by the surgeon with the radiologist No abscess collection that needs to be drained Was advised to continue IV antibiotic and wound care ID is consulted-appreciate input and recommendation Does not require any IV and D as per the surgeon There is no fluctuation and doubt any abscess to drain Left thigh wound has been improving Chronic bilateral lower leg skin changes with possible chronic cellulitis/inflammation Has improved a lot (3) T2DM (type 2 diabetes mellitus): Plan: T2DM, uncontrolled due to unable to afford medications place on lantus/novolog protocol obtain a1c in a.m. , pt states in [place] it was > 9 will likely need to coordinate with CM to determine a regimen pt can afford, currently he states he has no income Hemoglobin A1c 7.6 Dietitian has been consulted for diabetic teaching Has been using his insulin and blood sugar is maintained (4) HTN (hypertension): Plan: BP was very high on admission, again likely chronic and untreated previously when under care of Dr. Leung was on lisinopril 40mg daily and coreg 3.125mg bid will give 10mg IV labetolol x 1 now will start lisinopril 20mg daily, will need to titrate as needed Blood pressure remains high at 158/97 Blood pressure is controlled (5) HLD (hyperlipidemia): Plan: Previously of atorvastatin 80mg daily Currently off medication Obtain lipid panel in a.m. We will discuss about restarting statin (6) Diabetic neuropathy: (7) Morbid obesity: Plan Possible SVT per Femur CT ? SVT venous Doppler negative for dvt/svt Morbid Obesity encourage diet and lifestyle modifications DVT ppx: will await surgical consult to determine if to go for I and D, if not recommend adding lovenox Will start Lovenox DNR/DNI PCP: none, pt wishes to return to [facility], previously saw Dr. Leung, pt will also need assistance with medications as currently he isn't taking any due to unable to afford Will get appointment with his primary care physicians also the wound care on discharge Admission and Anticipated Discharge Date Admission Date: January 31, 2022 Subjective 02/01/2022 The patient was seen and examined in medical telemetry unit He complains to pain in the left upper thigh and bilateral legs Denies any fever and or chills He has been waiting for wound debridement but that was postponed for today 02/02/2022 The patient was seen and examined in medical floor He has been feeling a little better and denies any significant pain and/or drainage from the left upper thigh wound His blood sugar has been running a little bit high Is going to have dietitian to advise him about the diet 02/03/2022 The patient was seen and examined in medical floor His pain in the left upper thigh seems to be improving swelling of the left upper thigh is improving too No fever and or chills, The IV team has had difficulty in putting a peripheral line 02/04/2022 The patient was seen and examined in medical floor He complains to have swelling and pain around mid medial thigh on the left side Denies any fever and or chills Pain is increased 02/05/2022 The patient was seen and examined in medical telemetry unit He has been feeling better Swelling and pain in the left upper thigh has improved Denies any fever and or chills Review of Systems Review of Systems: All systems reviewed and are unremarkable except as noted below Physical Exam Physical Exam: Lying in bed comfortably Constitutional: well developed, well nourished, + ill appearing and + obese Eyes: PERRL, conjunctivae normal, anicteric sclerae ENMT: external ear and nose normal, oropharynx normal Neck: trachea midline, no thyromegaly Respiratory: no respiratory distress Auscultation: lungs clear to auscultation bilaterally Cardiovascular: Rate/Rhythm: regular rate and regular rhythm; not tachycardic Heart Sounds: normal S1 and normal S2; no murmur Extremities: + edema (1+ edema bilaterally with chronic skin changes lower legs with chronic infl) Gastrointestinal (Abdomen): Inspection/Auscultation: normal bowel sounds; abdomen not distended Percussion/Palpation: abdomen soft; abdomen nontender Musculoskeletal: No acute arthritis in any joint Neurologic: normal touch/pain/proprioception; + does not move all extremities (Has foot drop on the left foot) Psychiatric: A+Ox3, euthymic affect Lymphatic: no cervical or axillary lymphadenopathy Results & Data Results & Data ([facility]) Vital Signs (Past 12 Hours) Vital Signs Temp Pulse Resp BP Pulse Ox 02/05/22 07:54 37.0 C 70 20 137/82 97 Medications Administered Current Inpatient Medications Acetaminophen (Acetaminophen 325 Mg Tab) 650 mg PO Q4H PRN PRN Reason: Pain or Fever Stop: 03/02/22 17:54 Last Admin: 02/03/22 17:01 Dose: 650 mg Al Hydrox/Mg Hydrox/Simethicone (Aluminum/Magnesium Susp 30 Ml Udc) 15 ml PO Q4H PRN PRN Reason: Dyspepsia Stop: 03/02/22 17:54 Dextrose (Dextrose 50% 50 Ml Syringe) 25 - 50 ml IV UD PRN; Protocol PRN Reason: Hypoglycemia Protocol Stop: 03/02/22 17:54 Diclofenac Sodium (Diclofenac Sod 1% Gel 100 Gm Tube) 2 gm EXT QID PATSY; Protocol Stop: 03/06/22 12:59 Last Admin: 02/05/22 12:30 Dose: 2 gm Enoxaparin Sodium (Enoxaparin Inj 40 Mg/0.4 Ml Syr) 40 mg SQ QAM PATSY Stop: 03/04/22 13:59 Last Admin: 02/05/22 09:13 Dose: 40 mg Glucagon (Glucagon For Inj 1 Mg Vial) 1 mg SQ UD PRN; Protocol PRN Reason: Hypoglycemia Protocol Stop: 03/02/22 17:54 Glucose (Glucose 10 Tab/Tube) 4 - 8 tab PO UD PRN; Protocol PRN Reason: Hypoglycemia Treatment Stop: 03/02/22 17:54 Glucose (Glucose 40% Gel 15 Gm Tube) 15 - 30 gm PO UD PRN; Protocol PRN Reason: Hypoglycemia Protocol Stop: 03/02/22 17:54 Cefepime HCl 2,000 mg/ Syringe 20 mls @ 5 mls/min IV Q8H [facility]; Protocol Stop: 02/07/22 17:54 Last Admin: 02/05/22 13:40 Dose: 5 mls/min Metronidazole (Flagyl) 500 mg in 100 mls @ 100 mls/hr IV Q8H [facility] Stop: 02/07/22 17:54 Last Infusion: 02/05/22 13:37 Dose: Infused Insulin Aspart (Insulin Aspart Per Unit) 0 units SC ACHS [facility] Stop: 03/03/22 11:44 Last Admin: 02/05/22 12:29 Dose: 6 units Insulin Glargine (Lantus Per Unit Charge) 40 units SQ HS [facility] Stop: 03/06/22 20:59 Lisinopril (Lisinopril 20 Mg Tab) 20 mg PO QAM PATSY Stop: 03/02/22 17:54 Last Admin: 02/05/22 09:13 Dose: 20 mg Magnesium Hydroxide (Magnesium Hydroxide Susp 30 Ml Udc) 30 ml PO Q12H PRN PRN Reason: Constipation Stop: 03/02/22 17:54 Miconazole Nitrate (Miconazole Nitrate Powder 43 Gm) 1 appln EXT PRN PRN PRN Reason: Affected Skin Folds Stop: 03/05/22 06:57 Last Admin: 02/04/22 08:16 Dose: 1 appln Miscellaneous (Carbohydrates For Hypoglycemia ) 15 - 30 gm PO UD PRN PRN Reason: Hypoglycemia Protocol Stop: 03/02/22 17:54 Miscellaneous Information (Pharmacy Glycemic Mgmt Consult) 1 each N/A UD PRN; Protocol PRN Reason: Consult Stop: 03/02/22 17:54 Morphine Sulfate (Morphine Sulfate 4 Mg/Ml 1 Ml Carp\Vial) 4 mg IV Q6H PRN PRN Reason: Pain 7-10 Stop: 02/14/22 17:54 Last Admin: 02/04/22 22:18 Dose: 4 mg Ondansetron HCl (Ondansetron Inj 2 Mg/Ml 2 Ml Vial) 4 mg IV Q6H PRN PRN Reason: Nausea Stop: 03/02/22 17:54 Oxycodone HCl (Oxycodone Hcl Ir 5 Mg Tab (Immediate Release)) 5 mg PO Q6H PRN PRN Reason: Pain 1-6 Stop: 02/14/22 17:54 Last Admin: 02/04/22 11:12 Dose: 5 mg Polyethylene Glycol (Polyethylene (Miralax) 17 Gm Pack) 17 gm PO DAILY PRN PRN Reason: Constipation Stop: 03/02/22 17:54
[2022-02-05] MEDS ORDERED: LANTUS PER UNIT CHARGE SQ SCH (21:00)
[2022-02-05] MEDS: oxyCODONE HCL IR 5 MG TAB (IMMEDIATE RELEASE) PO PRN (22:06)
[2022-02-06] MEDS: CEFEPIME 2,000 MG in SYRINGE 0 ML IV SCH ×2 (01:54→14:54)
[2022-02-06] MEDS ORDERED: LANTUS PER UNIT CHARGE SQ ONE (08:30)
[2022-02-06] MEDS: INSULIN ASPART PER UNIT SC SCH ×2 (08:39→12:47)
[2022-02-06] MEDS: metroNIDAZOLE 500 MG TAB PO SCH ×2 (08:40→14:54)
[2022-02-06] MEDS: lisinopril 20 MG TAB PO SCH (08:40)
[2022-02-06] MEDS: DICLOFENAC SOD 1% GEL 100 GM TUBE EXT SCH ×2 (08:41→12:25)
[2022-02-06] MEDS: ENOXAPARIN INJ 40 MG/0.4 ML SYR SQ SCH (08:41)
--- NOTE | 2022-02-06 08:55 | Pharmacy Report ---
Pharmacy Glycemic Short Note 2 - Date of Service February 06, 2022 - Glycemic Short BSG Results (Last 24 hours): 02/05/22 02/05/22 02/05/22 11:26 16:38 20:34 POC Glucose 126 H 105 H 123 H 02/06/22 07:49 POC Glucose 171 H OUTPATIENT ANTIDIABETIC REGIMEN: Per patient to CDE; not sure if insulin doses are 100% accurate: * Basaglar 50 units TIDM * Admelog around 24-26 units with meals * history of Trulicity 1.5 mg weekly but unable to get recently * unable to tolerate oral Metformin HbA1c: 7.6% (02/01/22) ASSESSMENT: 02/06: * Stressors stable * BSG's well controlled yesterday, but AM fasting BSG elevated after reduction in basal insulin * Will increase basal insulin and start to split BID (patient may have been taking multiple daily injections as an outpatient per above therefore OK to continue) 02/05: * Received 71 units of insulin yesterday, significant improving in fasting BSG overnight (181 vs. 123 mg/dL) * Will plan to maintain current Novolog parameters, but will decrease Lantus today in light of improved fasting 02/02: * Patient received 54 units of insulin yesterday; 35 units basal (10 units in AM and 25 units at HS) and 19 units bolus. * BSGs yesterday were [phone] mg/dl. * Fasting BSG today was 196 mg/dl. Increased HS basal dose for tonight to 35 units, none given this morning. * Post-prandial BSGs yesterday were all within goal. Novolog parameters continued the same today. 02/01/22: * 56 y/o M admitted for cellulitis, recently hospitalized for 1 month for the same. * On admission, BSGs have been elevated, A1c today = 7.6% indicating newly diagnosed diabetes. Patient was not any anti-diabetic meds at home. * Patient noted to have high BMI and obesity. * Basal and bolus insulins were ordered last night based on wt and stress of 3. * BSGs trended down to fasting of 156 mg/dl this morning. Patient received total 40 units of insulin last night; 25 units basal and 15 units bolus. * Lantus 10 units added on this morning. BSG trended down to 162 mg/dl pre- lunch. Novolog continued the same as yesterday. * Lantus dose scale ordered for HS. PLAN FOR INPATIENT GLYCEMIC CONTROL: * Basal insulin * Lantus 15 units SQ x1 then an additional 25-30 units HS, depending on BSG * Bolus insulin * NovoLog per scale ACHS or Q6hrs while NPO * Goal Range: Low 110 mg/dL - High 140 mg/dL * Correction Factor: 18 mg/dL/unit * Nutritional / Prandial insulin per carb ratio of 1 unit per 6 grams CHO consumed
--- NOTE | 2022-02-06 12:16 | Hospitalist Progress Note ---
Date of Service February 06, 2022 Assessment & Plan (1) Open wound of left thigh: Plan: Open Wound of L thigh Abscess of L thigh An elongated, deep wound with surrounding inflammation and minimal secretion from the lower end over the anteromedial aspect of left upper thigh-please see the picture of the wound Started with IV vanco, cefepime, flagyl Wound culture is growing Pseudomonas aeruginosa #1 and #2 and group B streptoc occal Wound care consult-appreciate input and recommendation Blood cultures have been taken and the patient does not meet criteria for sepsis Appreciate surgery input and recommendation for conservative management-No significant collection/abscess to drain The wound has been improving as per the patient Vancomycin has been discontinued as of 02/02/2022 ID consult is placed for direction and duration of antibiotic Might be helpful with wound VAC placement Appreciate ID input and recommendation Vancomycin has been discontinued and the patient is on cefepime IV for now He will be given oral Cipro and Augmentin to complete a course of 14 days in total on discharge Will have wound care management as an outpatient and follow-up with the primary care provider Minimal swelling involving the medial aspect of the left thigh with tenderness and some redness Will apply local diclofenac sodium and moist heat and continue current pain medications His left thigh swelling and tenderness have been improving Was evaluated by wound care nurse today and the patient can be discharged this afternoon We will continue Flagyl and Cipro for the next 7 days Probiotics as prescribed This is a 56-year-old male who has a significant past medical history of uncontrolled T2DM, HTN, HLD, obesity and MEETA who presents to ED due to worsening of L thigh wound x 3 days. Pt recently moved back from [place], [place]. Hospitalized there 12/27-01/20 2/2 L thigh abscess/cellulitis, that started as abscess. States underwent I and D, completed antibiotics and d/c to home with wound care. Has moved back up here a week and 3 days ago sx started to recur. Hx of cellulitis in past, denies hx of MRSA. Due to no insurance has not been taking any medications for chronic medical conditions Likely discharge tomorrow (2) Abscess of left thigh: Plan: CT reviewed by the surgeon with the radiologist No abscess collection that needs to be drained Was advised to continue IV antibiotic and wound care ID is consulted-appreciate input and recommendation Does not require any IV and D as per the surgeon There is no fluctuation and doubt any abscess to drain Left thigh wound has been improving We will have wound care follow-up as an outpatient Chronic bilateral lower leg skin changes with possible chronic cellulitis/inflammation Has improved a lot (3) T2DM (type 2 diabetes mellitus): Plan: T2DM, uncontrolled due to unable to afford medications place on lantus/novolog protocol obtain a1c in a.m. , pt states in [place] it was > 9 will likely need to coordinate with CM to determine a regimen pt can afford, currently he states he has no income Hemoglobin A1c 7.6 Dietitian has been consulted for diabetic teaching Has been using his insulin and blood sugar is maintained (4) HTN (hypertension): Plan: BP was very high on admission, again likely chronic and untreated previously when under care of Dr. Leung was on lisinopril 40mg daily and coreg 3.125mg bid will give 10mg IV labetolol x 1 now will start lisinopril 20mg daily, will need to titrate as needed Blood pressure remains high at 158/97 Blood pressure is controlled (5) HLD (hyperlipidemia): Plan: Previously of atorvastatin 80mg daily Currently off medication Obtain lipid panel in a.m. We will discuss about restarting statin (6) Diabetic neuropathy: (7) Morbid obesity: Plan Possible SVT per Femur CT ? SVT venous Doppler negative for dvt/svt Morbid Obesity encourage diet and lifestyle modifications DVT ppx: will await surgical consult to determine if to go for I and D, if not recommend adding lovenox Will start Lovenox DNR/DNI PCP: none, pt wishes to return to [facility], previously saw Dr. Leung, pt will also need assistance with medications as currently he isn't taking any due to unable to afford Will get appointment with his primary care physicians also the wound care on discharge Admission and Anticipated Discharge Date Admission Date: January 31, 2022 Subjective 02/01/2022 The patient was seen and examined in medical telemetry unit He complains to pain in the left upper thigh and bilateral legs Denies any fever and or chills He has been waiting for wound debridement but that was postponed for today 02/02/2022 The patient was seen and examined in medical floor He has been feeling a little better and denies any significant pain and/or drainage from the left upper thigh wound His blood sugar has been running a little bit high Is going to have dietitian to advise him about the diet 02/03/2022 The patient was seen and examined in medical floor His pain in the left upper thigh seems to be improving swelling of the left upper thigh is improving too No fever and or chills, The IV team has had difficulty in putting a peripheral line 02/04/2022 The patient was seen and examined in medical floor He complains to have swelling and pain around mid medial thigh on the left side Denies any fever and or chills Pain is increased 02/05/2022 The patient was seen and examined in medical telemetry unit He has been feeling better Swelling and pain in the left upper thigh has improved Denies any fever and or chills 02/06/2022 The patient was seen and examined in medical floor He has been feeling much better and denies any significant symptoms Minimal pain in the left thigh Was evaluated by wound care nurse today and he will be discharged today Review of Systems Review of Systems: All systems reviewed and are unremarkable except as noted below Physical Exam Physical Exam: Lying in bed comfortably Constitutional: well developed, well nourished, + ill appearing and + obese Eyes: PERRL, conjunctivae normal, anicteric sclerae ENMT: external ear and nose normal, oropharynx normal Neck: trachea midline, no thyromegaly Respiratory: no respiratory distress Auscultation: lungs clear to auscultation bilaterally Cardiovascular: Rate/Rhythm: regular rate and regular rhythm; not tachycardic Heart Sounds: normal S1 and normal S2; no murmur Extremities: + edema (1+ edema bilaterally with chronic skin changes lower legs with chronic infl) Gastrointestinal (Abdomen): Inspection/Auscultation: normal bowel sounds; abdomen not distended Percussion/Palpation: abdomen soft; abdomen nontender Musculoskeletal: No acute arthritis in any joint Neurologic: normal touch/pain/proprioception; + does not move all extremities (Has foot drop on the left foot) Psychiatric: A+Ox3, euthymic affect Lymphatic: no cervical or axillary lymphadenopathy Results & Data Results & Data ([facility]) Vital Signs (Past 12 Hours) Vital Signs Temp Pulse Resp BP Pulse Ox O2 Del Method 02/06/22 05:41 37.0 C 70 16 133/81 94 Room Air Medications Administered Current Inpatient Medications Acetaminophen (Acetaminophen 325 Mg Tab) 650 mg PO Q4H PRN PRN Reason: Pain or Fever Stop: 03/02/22 17:54 Last Admin: 02/03/22 17:01 Dose: 650 mg Al Hydrox/Mg Hydrox/Simethicone (Aluminum/Magnesium Susp 30 Ml Udc) 15 ml PO Q4H PRN PRN Reason: Dyspepsia Stop: 03/02/22 17:54 Dextrose (Dextrose 50% 50 Ml Syringe) 25 - 50 ml IV UD PRN; Protocol PRN Reason: Hypoglycemia Protocol Stop: 03/02/22 17:54 Diclofenac Sodium (Diclofenac Sod 1% Gel 100 Gm Tube) 2 gm EXT QID PATSY; Protocol Stop: 03/06/22 12:59 Last Admin: 02/06/22 12:25 Dose: 2 gm Enoxaparin Sodium (Enoxaparin Inj 40 Mg/0.4 Ml Syr) 40 mg SQ QAM [facility] Stop: 03/04/22 13:59 Last Admin: 02/06/22 08:41 Dose: 40 mg Glucagon (Glucagon For Inj 1 Mg Vial) 1 mg SQ UD PRN; Protocol PRN Reason: Hypoglycemia Protocol Stop: 03/02/22 17:54 Glucose (Glucose 10 Tab/Tube) 4 - 8 tab PO UD PRN; Protocol PRN Reason: Hypoglycemia Treatment Stop: 03/02/22 17:54 Glucose (Glucose 40% Gel 15 Gm Tube) 15 - 30 gm PO UD PRN; Protocol PRN Reason: Hypoglycemia Protocol Stop: 03/02/22 17:54 Cefepime HCl 2,000 mg/ Syringe 20 mls @ 5 mls/min IV Q8H PATSY; Protocol Stop: 02/07/22 17:54 Last Admin: 02/06/22 01:54 Dose: Not Given Insulin Aspart (Insulin Aspart Per Unit) 0 units SC ACHS [facility] Stop: 03/03/22 11:44 Last Admin: 02/06/22 08:39 Dose: 7 units Insulin Glargine (Lantus Per Unit Charge) 0 units SQ HS [facility]; Protocol Stop: 02/06/22 23:59 Lisinopril (Lisinopril 20 Mg Tab) 20 mg PO QAM [facility] Stop: 03/02/22 17:54 Last Admin: 02/06/22 08:40 Dose: 20 mg Magnesium Hydroxide (Magnesium Hydroxide Susp 30 Ml Udc) 30 ml PO Q12H PRN PRN Reason: Constipation Stop: 03/02/22 17:54 Metronidazole (Metronidazole 500 Mg Tab) 500 mg PO TID PATSY Stop: 02/07/22 21:01 Last Admin: 02/06/22 08:40 Dose: 500 mg Miconazole Nitrate (Miconazole Nitrate Powder 43 Gm) 1 appln EXT PRN PRN PRN Reason: Affected Skin Folds Stop: 03/05/22 06:57 Last Admin: 02/04/22 08:16 Dose: 1 appln Miscellaneous (Carbohydrates For Hypoglycemia ) 15 - 30 gm PO UD PRN PRN Reason: Hypoglycemia Protocol Stop: 03/02/22 17:54 Miscellaneous Information (Pharmacy Glycemic Mgmt Consult) 1 each N/A UD PRN; Protocol PRN Reason: Consult Stop: 03/02/22 17:54 Morphine Sulfate (Morphine Sulfate 4 Mg/Ml 1 Ml Carp\Vial) 4 mg IV Q6H PRN PRN Reason: Pain 7-10 Stop: 02/14/22 17:54 Last Admin: 02/04/22 22:18 Dose: 4 mg Ondansetron HCl (Ondansetron Inj 2 Mg/Ml 2 Ml Vial) 4 mg IV Q6H PRN PRN Reason: Nausea Stop: 03/02/22 17:54 Oxycodone HCl (Oxycodone Hcl Ir 5 Mg Tab (Immediate Release)) 5 mg PO Q6H PRN PRN Reason: Pain 1-6 Stop: 02/14/22 17:54 Last Admin: 02/05/22 22:06 Dose: 5 mg Polyethylene Glycol (Polyethylene (Miralax) 17 Gm Pack) 17 gm PO DAILY PRN PRN Reason: Constipation Stop: 03/02/22 17:54
[2022-02-06] MEDS ORDERED: CIPROFLOXACIN 250 MG TAB PO SCH (13:00)
--- NOTE | 2022-02-06 18:03 | Discharge Summary ---
Date of Service February 06, 2022 Admission HPI Per Admitting Provider This is a 56-year-old male who has a significant past medical history of uncontrolled T2DM, HTN, HLD, obesity and MEETA who presents to ED due to worsening of L thigh wound x 3 days. Patient recently lived in the area but moved to [place], [place] approximately 2 years ago. He was recently hospitalized at [facility] in [place] from December 27 - January 20. He was hospitalized for L thigh cellulitis and abscess. He underwent I and D. He completed antibiotic therapy. He is unsure what antibiotics he took as well as what his culture showed in the hospital. He was discharged to home with wet to dry dr saucedo changes twice daily. He moved back to [place] with his son Jeff, who is at bedside, 1 week ago. He continued to have his wound at discharge but felt it was much improved. Approx 3 days ago he noted a lot more swelling, pain, redness and bloody, yellow discharge to the medial aspect of wound. He denies any f/c/s, chest pain, sob, URI sx, cough, n/v/d, abd pain, change in bowel or urinary habits. Unfortunately pt lost his insurance due to job and was not able to get medicaid in [place]. He has not been on medication for his chronic medical problems for quite some time. He states he was recently just approved to medicaid. He states he previously followed Dr. Leung of [facility] and is interested in following with [facility] again. Currently he is homeless and living with a friend. When he was in the hospital his actually served him divorce papers. Principal Diagnosis Left upper thigh wound,Type 2 Diabetes,HTN Discharge Exam Constitutional WD/WN, vitals as above well developed, well nourished, + ill appearing and + obese Eyes PERRL, conjunctivae normal, anicteric sclerae no conjunctival abnormality ENMT external ear and nose normal, oropharynx normal Ears: no hearing impairment and no external ear abnormality Mouth: no oropharynx abnormality Neck trachea midline, no thyromegaly trachea midline Respiratory normal respiratory effort; no respiratory distress and no labored breathing Auscultation: lungs clear to auscultation bilaterally Cardiovascular Rate/Rhythm: regular rate and regular rhythm; not tachycardic Heart Sounds: normal S1 and normal S2; no murmur Extremities: + edema (1+ edema bilaterally with chronic skin changes lower legs with chronic infl) Gastrointestinal (Abdomen) Inspection/Auscultation: normal bowel sounds; abdomen not distended Percussion/Palpation: abdomen soft; abdomen nontender Neurologic normal touch/pain/proprioception; + does not move all extremities (Has foot drop on the left foot) Psychiatric A+Ox3, euthymic affect Lymphatic no cervical or axillary lymphadenopathy Discharge Data Allergies Allergy/AdvReac Type Severity Reaction Status Date / Time metformin AdvReac Severe SEVERE Verified 01/31/22 14:23 DIARRHEA Consultations 01/31/22 14:19 ED Decision to Admit Stat 01/31/22 14:31 Consult General Surgery Routine 01/31/22 15:21 HIM [Consult Health Information Management] Routine 02/02/22 10:35 Consult Infectious Diseases Routine Procedures Performed Operation Date: 02/01/22 07:00 <No data on this case meets the specified criteria> Ordered Studies 01/31/22 12:25 CT leg [CT femur LT w con] Stat US venous doppler LE LT Stat Hospital Course (1) Open wound of left thigh: (1) Open wound of left thigh: Plan: Open Wound of L thigh Abscess of L thigh An elongated, deep wound with surrounding inflammation and minimal secretion from the lower end over the anteromedial aspect of left upper thigh-please see the picture of the wound Started with IV vanco, cefepime, flagyl Wound culture is growing Pseudomonas aeruginosa #1 and #2 and group B streptococcal Wound care consult-appreciate input and recommendation Blood cultures have been taken and the patient does not meet criteria for sepsis Appreciate surgery input and recommendation for conservative management-No sign ificant collection/abscess to drain The wound has been improving as per the patient Vancomycin has been discontinued as of 02/02/2022 ID consult is placed for direction and duration of antibiotic Might be helpful with wound VAC placement Appreciate ID input and recommendation Vancomycin has been discontinued and the patient is on cefepime IV for now He will be given oral Cipro and Augmentin to complete a course of 14 days in total on discharge Will have wound care management as an outpatient and follow-up with the primary care provider Minimal swelling involving the medial aspect of the left thigh with tenderness and some redness Will apply local diclofenac sodium and moist heat and continue current pain medications His left thigh swelling and tenderness have been improving Was evaluated by wound care nurse today and the patient can be discharged this afternoon We will continue Flagyl and Cipro for the next 7 days Probiotics as prescribed This is a 56-year-old male who has a significant past medical history of uncontrolled T2DM, HTN, HLD, obesity and MEETA who presents to ED due to worsening of L thigh wound x 3 days. Pt recently moved back from [place], [place]. Hospitalized there 12/27-01/20 2/2 L thigh abscess/cellulitis, that started as abscess. States underwent I and D, completed antibiotics and d/c to home with wound care. Has moved back up here a week and 3 days ago sx started to recur. Hx of cellulitis in past, denies hx of MRSA. Due to no insurance has not been taking any medications for chronic medical conditions Likely discharge tomorrow (2) Abscess of left thigh: Plan: CT reviewed by the surgeon with the radiologist No abscess collection that needs to be drained Was advised to continue IV antibiotic and wound care ID is consulted-appreciate input and recommendation Does not require any IV and D as per the surgeon There is no fluctuation and doubt any abscess to drain Left thigh wound has been improving We will have wound care follow-up as an outpatient Chronic bilateral lower leg skin changes with possible chronic cellulitis/inflammation Has improved a lot (3) T2DM (type 2 diabetes mellitus): Plan: T2DM, uncontrolleddue to unable to afford medications place on lantus/novolog protocol obtain a1c in a.m. , pt states in [place] it was > 9 will likely need to coordinate with CM to determine a regimen pt can afford, currently he states he has no income Hemoglobin A1c 7.6 Dietitian has been consulted for diabetic teaching Has been using his insulin and blood sugar is maintained (4) HTN (hypertension): Plan: BP was very high on admission, again likely chronic and untreated previously when under care of Dr. Leung was on lisinopril 40mg daily and coreg 3.125mg bid will give 10mg IV labetolol x 1 now will start lisinopril 20mg daily, will need to titrate as needed Blood pressure remains high at 158/97 Blood pressure is controlled (5) HLD (hyperlipidemia): Plan: Previously of atorvastatin 80mg daily Currently off medication Obtain lipid panel in a.m. We will discuss about restarting statin (6) Diabetic neuropathy: (7) Morbid obesity: Plan Possible SVT per Femur CT ? SVT venous Doppler negative for dvt/svt Morbid Obesity encourage diet and lifestyle modifications DVT ppx: will await surgical consult to determine if to go for I and D, if not recommend adding lovenox Will start Lovenox DNR/DNI PCP: none, pt wishes to return to [facility], previously saw Dr. Leung, pt will also need assistance with medications as currently he isn't taking any due to unable to afford Will get appointment with his primary care physicians also the wound care on discharge (2) Abscess of left thigh: (3) T2DM (type 2 diabetes mellitus): (4) HTN (hypertension): (5) HLD (hyperlipidemia): (6) Diabetic neuropathy: (7) Morbid obesity: Total Time Total Time Spent Total Time Spent (In Minutes): 45 minutes Discharge Plan Discharge Items Patient Disposition: Home - Home Health Services Reason For Visit: LEFT THIGH ABSCESS Discharge Diagnosis: Left upper thigh wound,Type 2 Diabetes,HTN Condition on Discharge: Good Activity: Resume your previous activity Non-emergency contact: Primary Care Provider Call non-emergency contact if: you have any medication questions and your symptoms worsen Follow-up/Referrals: [facility] [Other] - 02/13/22 8:00 am ([address], [place] [address] The wound care center will call you with an appointment.) Julio César Pulliam DO [Outside Practitioners] - 02/09/22 11:20 am (Date & Time 02/09/2022 11:20 AM Provider Julio César Pulliam DO Department Family Practice [facility] ) Diet: Carb Consistent or DM2 Addtl Attending Provider Instructions: Please take precaution to avoid falls Finish the course of antibiotics Keep the wound clean and dry Dress the wound as advised Please keep appointment with your health care providers Addtl Analytical Chemist Provider Instructions: 1. Lantus 40 units SC QAM 2. Aspart Flexpen with meals - 6 units if a low-carbohydrate meal, 10 units if a high-carbohydrate meal 3. Additional Aspart Flexpen with meals, if blood sugar is elevated as follows: Blood sugar 150-174 mg/dL: 1 unit Blood sugar 175-199 mg/dL: 2 units Blood sugar 200-224 mg/dL: 3 units Blood sugar 225-249 mg/dL: 4 units Blood sugar 250-274 mg/dL: 5 units Blood sugar 275-299 mg/dL: 6 units Blood sugar 300-324 mg/dL: 7 units Blood sugar 325-349 mg/dL: 8 units Blood sugar 350 mg/dL or greater: 9 units Per Claudia's note: RECOMMENDATIONS AT DISCHARGE: 1.) Will need Rxs for all diabetes medications and supplies at time of discharge (see below). 2.) SMBG before meals/bedtime. 3.) Aim to maintain BG values < 180 (ideally < 140 before meals) to support healing. 4.) Balanced meals, limit carbs, boost protein. PRESCRIPTIONS NEEDED: 1.) Lantus Solostar pen. 2.) Aspart Flexpen (generic for Novolog). 3.) OneLumetric Lightinguch Ultra 2 Meter- to check 4x/day. 4.) OneTouch Ultra Blue Test Strips- to check 4x/day. Pending Studies at Discharge: No Stand-Alone Forms: My [facility] [employer], Smoking Cessation Medications and DC Order Prescriptions: New lisinopril 20 mg Tablet 20 mg PO QAM 30 Days Qty: 30 0RF metronidazole 500 mg Tablet 500 mg PO TID 8 Days Qty: 24 0RF diclofenac sodium [Voltaren Arthritis Pain] 1 % Gel 2 g EXT QID 10 Days Qty: 50 0RF ciprofloxacin HCl 250 mg Tablet 750 mg PO Q12H 8 Days Qty: 48 0RF insulin glargine [Lantus Solostar U-100 Insulin] 100 unit/mL (3 mL) insulin pen 40 unit subcut QAM Qty: 15 0RF insulin aspart U-100 [Novolog Flexpen U-100 Insulin] 100 unit/mL (3 mL) insulin pen 1 sliding scale dose subcut USEASDIRECTD Qty: 15 0RF Rx Instructions: 6 units for low Carbohydrate and 10 units for High carbohydrate meals.Additional injection as follows: Blood sugar 150-174 mg/dL: 1 unit Blood sugar 175-199 mg/dL: 2 units Blood sugar 200-224 mg/dL: 3 units Blood sugar 225-249 mg/dL: 4 units Blood sugar 250-274 mg/dL: 5 units Blood sugar 275-299 mg/dL: 6 units Blood sugar 300-324 mg/dL: 7 units Blood sugar 325-349 mg/dL: 8 units Blood sugar 350 mg/dL or greater: 9 units (DME) blood-glucose meter [OneTouch Ultra2 Meter] Misc See Rx Instructions .Route Qty: 1 0RF Rx Instructions: As directed (DME) OneTouch Ultra Test Strip See Rx Instructions .Route Qty: 100 0RF Rx Instructions: 4 times a day Lactobacillus acidophilus 1 billion cell tablet 25 mmu cells PO BID Qty: 30 0RF Continued acetaminophen [Tylenol Extra Strength] 500 mg Tablet 2,000 mg PO DIRECTED PRN (Reason: Pain) ibuprofen 200 mg Tablet 800 mg PO DIRECTED PRN (Reason: Pain) Discharge Orders: Discharge Order (Routine); Ordered 02/06/22 Ordered By: Jelani Watkins/Other Patient Handouts: Insulin How To Use Where Inject, Types of Insulin, Blood Sugar Check Steps Admission Data Admit Date/Time: 01/31/22 14:31 Attending Provider: Jelani Cartagena Admit Provider: Prince Martin Primary Care Provider: Eron Leung Other Providers: Prince Martin ; Luis Zhou ; Ameya Morales ; Ishaan Liang ; Chinmay German I. ; Yimi Hillman II ; Kamini Lowe ; Brian Hancock ; Elías To ; Monica Daniels ; [facility] Other Interventions: Discharge Summary Assessment (RN) Last Done: 02/06/22 16:12
[2022-02-06] MEDS ORDERED: LANTUS PER UNIT CHARGE SQ SCH (21:00)
== END 2022-02-06 16:51 | disposition home health service (06) | DRG 603 ==
LOC: ED 11:52 → 2N 14:31 → SUATTDRO 14:31 → 2N 18:03 → 3W 02-05 21:57
DX: Z83.3 Family history of diabetes mellitus; L03.90 Cellulitis, unspecified; Z66 Do not resuscitate; E78.5 Hyperlipidemia, unspecified; I47.1 Supraventricular tachycardia; I10 Essential (primary) hypertension; E11.40 Type 2 diabetes mellitus with diabetic neuropathy, unspecified; Z87.891 Personal history of nicotine dependence; G47.33 Obstructive sleep apnea (adult) (pediatric); E66.01 Morbid (severe) obesity due to excess calories; B96.5 Pseudomonas (aeruginosa) (mallei) (pseudomallei) as the cause of diseases classified elsewhere; Z88.8 Allergy status to other drugs, medicaments and biological substances; Z59.9 Problem related to housing and economic circumstances, unspecified; Z68.42 Body mass index [BMI] 45.0-49.9, adult; L02.416 Cutaneous abscess of left lower limb; B95.1 Streptococcus, group B, as the cause of diseases classified elsewhere

== ENCOUNTER 2022-02-24 13:41 | Inpatient (IN) ==
[2022-02-24] MEDS ORDERED: MoRPHine SULFATE 4 MG/ML 1 ML CARP\\VIAL IV STA (14:13)
[2022-02-24] MEDS ORDERED: ONDANSETRON INJ 2 MG/ML 2 ML VIAL IV STA (14:13)
[2022-02-24] MEDS ORDERED: MoRPHine SULFATE 4 MG/ML 1 ML CARP\\VIAL IV PRN ×2 (14:13→20:15)
--- NOTE | 2022-02-24 14:26 | Emergency Department Note ---
Impression & Plan Cellulitis of left leg, PAD (peripheral artery disease) ED Provider Note NAME: FABY FRENCH AGE: 56 SEX: M : 1965 ARRIVES VIA: Walk-In INFORMANT: Patient, ED PROVIDER(S): Ruy Vu DO CHIEF COMPLAINT: Foot pain HPI: The patient is a 56-year-old male who presented to the emergency department for an evaluation of left foot pain. The patient states that he has had symptoms for approximately 1 week. He denies having any trauma. The patient states that his left fourth toe started to turn black and this is why came to the emergency department. He was diagnosed with necrotizing fasciitis in December of this year. He does have a wound in place that is being changed by his visiting nurse. He states that this wound is healing well. The patient states that he has had no fever. He denies having any vomiting. He states his left foot is starting to hurt more severe than usual. He does not take any blood thinners. He did not see his family doctor for the symptoms. ROS: See above HPI for pertinent positives & negatives. A total of 10 systems reviewed and were otherwise negative. PAST MEDICAL HISTORY: See Below PAST SURGICAL HISTORY: See Below FAMILY HISTORY: See Below SOCIAL HISTORY: See Below HOME MEDICATIONS: See Below ALLERGIES: See Below VITALS: See Below PHYSICAL EXAMINATION: GENERAL: Patient is awake alert in no acute distress patient is resting comfortably and showing no signs of anxiety EYES: The conjunctivae are clear. The pupils are round and reactive. EARS, NOSE, MOUTH AND THROAT: The nose is without any evidence of any deformity. Mucous membranes are moist. Tongue is midline. NECK: The neck is nontender and supple. RESPIRATORY: Normal respiratory effort is noted there is no evidence of wheezing rhonchi or rales CARDIOVASCULAR: Regular rate and rhythm noted there no murmurs rubs or gallops normal S1 normal S2. GASTROINTESTINAL: The abdomen is soft. Abdomen is nontender. MUSCULOSKELETAL/EXTREMITIES: There is no evidence of gross deformity full range of motion is noted in the hips and shoulders. SKIN: Skin is warm and dry. Pulses are diminished in both feet. Left fourth toe is noted to be discolored. Capillary refill is absent in that toe. The patient has a wound dressing in place in the left inguinal region. There is no significant erythema but there is significant swelling. NEUROLOGIC: Patient is awake alert and oriented x3 MEDICAL DECISION MAKING: The patient is a 56-year-old male who presented to the emergency department with left foot pain. The patient has very poor pulses but they are symmetric. The patient also has redness and swelling in the left leg. He is currently being treated with IV antibiotics for an area in his left thigh that had a deep tissue infection. This was treated with incision and drainage. The patient states that this area looks much better and wound dressing appears good. I discussed the patient's laboratory and radiographic studies with him. He was treated with pain medication in the emergency department. He has an area on his left foot that could be consistent with peripheral artery disease or possibly an arterial occlusion. He does have significant pain over this area. Arterial Dopplers were obtained. The patient was not found to have any critical stenosis but he does have diffuse disease. He was feeling much better on subsequent reevaluation. He was given a dose of IV antibiotics. I will discuss his case with the on-call [facility] hospitalist. Triage Nursing notes reviewed. Prior medical records reviewed Vital Signs: reviewed and remarkable for elevated blood pressure. Differential diagnosis: Cellulitis, abscess, MRSA infection, DVT, necrotizing fasciitis, dermatitis, drug eruption, allergic reaction, as well as other pathologies. ER treatment provided: See below Diagnostics interpreted by me: ECG: EKG was obtained in the emergency department. My interpretation is sinus rhythm at 86 bpm. PVCs were noted. Right bundle branch block pattern was noted. No previous EKGs were available. Cardiac Monitoring: An order was placed for continuous cardiac monitoring. The monitor shows a rate of 89 bpm with sinus rhythm. Laboratory studies: As stated above and show below. Imaging studies: See below Consultation(s): I discussed this case with [facility] Past Med/Surg History Medical History Diabetic neuropathy HLD (hyperlipidemia) HTN (hypertension) Morbid obesity MEETA (obstructive sleep apnea) not on cpap or O2 T2DM (type 2 diabetes mellitus) Surgical History Hx of laminectomy L3-S1 Family History Other Cancer Diabetes Family history of blood clots Heart disease Social History Smoking Status: Current every day smoker Tobacco Type: Pipe and Cigars Cigarettes Per Day: 4; Second Hand Exposure: No; Hx Alcohol Use: No Hx Substance Use: No Preferred Language: Georgian Communication Ability: Effective Visual Impairment: Limited Hearing Ability: Hard of Hearing Tools Programmer Required: No Beliefs That Will Affect Care: None marital status: marital status details: but currently going through divorce Current Living Situation: Alone Current Living Situation Comment: staying with friend currently current occupational status: unemployed How many Children do You have: 2 How many Children do You have Comment: son is involved with care and able to assist with care as needed (son lives 30 minutes from pt) Feels Safe at Home: Yes Diet Comment: tries to pay attention to what he eats regarding diabetes. during the past year weight has: increased > 10 lbs Assistive Devices: Walker Allergies Allergies Allergy/AdvReac Type Severity Reaction Status Date / Time metformin AdvReac Severe SEVERE Verified 02/22/22 13:33 DIARRHEA Home Meds Home Medications Medication Instructions Recorded Confirmed lisinopril 20 mg tablet 40 mg PO QAM 02/24/22 02/24/22 Previous Rx's Medication Instructions Recorded Lactobacillus acidophilus 1 25 mmu cells PO BID #30 tabs 02/06/22 billion cell tablet blood sugar diagnostic (OneTouch #100 ea 02/06/22 Ultra Test strips) blood-glucose meter (OneTouch #1 ea 02/06/22 Ultra2 Meter) insulin aspart U-100 100 unit/mL 1 sliding scale dose subcut 02/06/22 (3 mL) subcutaneous pen (Novolog USEASDIRECTD #15 mL Flexpen U-100 Insulin aspart) insulin glargine 100 unit/mL (3 40 unit (0.4 mL) subcut QAM #15 mL 02/06/22 mL) subcutaneous pen (Lantus Solostar U-100 Insulin) Results & Data (ED) Vital Signs Vital Signs - 24 hr 02/24/22 13:53 02/24/22 14:31 02/24/22 15:04 Temperature 36.9 C Temperature Source Oral Pulse Rate 92 H Pulse Rate [Left] 83 Pulse Rhythm [Left] Regular Pulse Strength [Left] Normal Respiratory Rate 18 26 H Respiratory Effort / Characteristics Non-Labored Non-Labored Respiratory Depth Normal Normal Respiratory Pattern Regular Blood Pressure 160/93 H Blood Pressure [Left Arm] 172/96 H Blood Pressure Mean 115 Blood Pressure Mean [Left Arm] 121 Pulse Oximetry 95 95 98 Oxygen Delivery Method Room Air Room Air Room Air Sepsis Recent Fever Within 48 Hours No Sepsis New/Unexplained Change in Mental Status No Sepsis Action Taken by Nursing No Action Required 02/24/22 15:15 02/24/22 15:30 02/24/22 15:45 Temperature Temperature Source Pulse Rate Pulse Rate [Left] 95 H 89 84 Pulse Rhythm [Left] Regular Regular Regular Pulse Strength [Left] Normal Normal Respiratory Rate 19 19 20 Respiratory Effort / Characteristics Non-Labored Non-Labored Non-Labored Respiratory Depth Normal Normal Normal Respiratory Pattern Regular Regular Regular Blood Pressure Blood Pressure [Left Arm] 161/90 H 177/97 H 182/98 H Blood Pressure Mean Blood Pressure Mean [Left Arm] 113 123 126 Pulse Oximetry 95 96 94 Oxygen Delivery Method Room Air Room Air Room Air Sepsis Recent Fever Within 48 Hours Sepsis New/Unexplained Change in Mental Status Sepsis Action Taken by Nursing 02/24/22 16:00 02/24/22 17:00 02/24/22 17:15 Temperature Temperature Source Pulse Rate Pulse Rate [Left] 89 80 79 Pulse Rhythm [Left] Regular Regular Regular Pulse Strength [Left] Normal Normal Normal Respiratory Rate 20 16 15 Respiratory Effort / Characteristics Non-Labored Non-Labored Respiratory Depth Normal Normal Normal Respiratory Pattern Regular Regular Regular Blood Pressure Blood Pressure [Left Arm] 165/99 H 163/88 H Blood Pressure Mean Blood Pressure Mean [Left Arm] 121 113 Pulse Oximetry 94 94 95 Oxygen Delivery Method Room Air Room Air Room Air Sepsis Recent Fever Within 48 Hours Sepsis New/Unexplained Change in Mental Status Sepsis Action Taken by Nursing 02/24/22 18:00 Temperature Temperature Source Pulse Rate 85 Pulse Rate [Left] Pulse Rhythm [Left] Pulse Strength [Left] Respiratory Rate 17 Respiratory Effort / Characteristics Respiratory Depth Respiratory Pattern Blood Pressure 152/97 H Blood Pressure [Left Arm] Blood Pressure Mean 115 Blood Pressure Mean [Left Arm] Pulse Oximetry 94 Oxygen Delivery Method Sepsis Recent Fever Within 48 Hours Sepsis New/Unexplained Change in Mental Status Sepsis Action Taken by [facility] Medications Current Medication List: was personally reviewed by me Laboratory Data Attestation: I reviewed the patient's lab results. Result diagrams: 02/25/22 04:10 02/25/22 04:10 Lab Results 02/24/22 02/24/22 02/24/22 Range/Units 14:11 14:11 14:11 WBC 10.37 (4.8-10.8) K/ul RBC 4.79 (4.63-6.08) M/uL Hgb 15.1 (14.0-18.0) g/dl Hct 44.8 (40.1-51.0) % MCV 93.5 (80.0-100.0) fL MCH 31.5 (25.0-34.0) pg MCHC 33.7 (32.0-36.0) g/dL RDW Std Deviation 50.9 H (36.4-46.3) fL RDW Coeff of Mercedes 14.6 H (11.5-14.5) % Plt Count 302 (130-400) K/uL MPV 11.5 (9.4-12.4) fL Immature Gran % (Auto) 0.5 % Neut % (Auto) 66.1 % Lymph % (Auto) 22.7 % Hodgeman % (Auto) 7.6 % Eos % (Auto) 2.3 % Baso % (Auto) 0.8 % Neut # (Auto) 6.86 H (1.4-6.5) K/uL Lymph # (Auto) 2.35 (1.2-3.4) K/uL Hodgeman # (Auto) 0.79 (0.24-0.82) K/uL Eos # (Auto) 0.24 (0-0.50) K/uL Baso # (Auto) 0.08 (0-0.2) K/uL Immature Gran # (Auto) 0.05 H (0.00-0.02) K/uL ESR (0-20) mm/hr PT 11.0 (9.0-12.0) Seconds INR 1.0 (0.9-1.1) APTT 24.5 (21.0-31.0) Seconds PTT Ratio 0.9 Sodium 137 (136-145) mmol/L Potassium 3.8 (3.5-5.1) mmol/L Chloride 104 (98-107) mmol/L Carbon Dioxide 27 (21-32) mmol/L Anion Gap 6 (3-11) BUN 8 (6-23) mg/dl Creatinine 0.68 (0.6-1.4) mg/dl Est Cr Clr Drug Dosing 178.4 ml/min Est GFR ( Amer) 122.9 ml/min Est GFR (Non-Af Amer) 106.0 ml/min BUN/Creatinine Ratio 11.8 (10-20) Glucose 105 H (70-99(Fasting)) mg/dl Lactate (0.4-2.0) mmol/L Calcium 9.7 (8.5-10.1) mg/dl Magnesium 1.6 L (1.7-2.4) mg/dl Total Bilirubin 0.4 (0.2-1.0) mg/dl Direct Bilirubin 0.0 (0-0.2) mg/dl AST 10 L (13-39) U/L ALT 7 (7-52) U/L Alkaline Phosphatase 71 (34-104) U/L Troponin I High Sens 12.2 (0-20) pg/ml C-Reactive Protein 2.47 H (0-0.5) mg/dl Total Protein 7.7 (6.0-8.3) gm/dl Albumin 4.0 (3.4-5.0) gm/dl Procalcitonin (0-0.5) ng/ml Urine Color Urine Appearance (Clear) Urine pH (4.5-7.5) Ur Specific [place] (1.000-1.030) Urine Protein (Negative) Urine Glucose (UA) (Negative) Urine Ketones (Negative) Urine Blood (Negative) Urine Nitrite (Negative) Urine Bilirubin (Negative) Urine Urobilinogen (Negative) Ur Leukocyte Esterase (Negative) Urine WBC (Auto) (0-5) /hpf Urine RBC (Auto) (0-4) /hpf U Hyaline Cast (Auto) (0-5) /lpf U Epithel Cells (Auto) (0-5) /lpf Urine Bacteria (Auto) (Negative) SARS-CoV-2, RNA, NAAT (NEGATIVE) 02/24/22 02/24/22 02/24/22 Range/Units 14:11 14:11 14:42 WBC (4.8-10.8) K/ul RBC (4.63-6.08) M/uL Hgb (14.0-18.0) g/dl Hct (40.1-51.0) % MCV (80.0-100.0) fL MCH (25.0-34.0) pg MCHC (32.0-36.0) g/dL RDW Std Deviation (36.4-46.3) fL RDW Coeff of Mercedes (11.5-14.5) % Plt Count (130-400) K/uL MPV (9.4-12.4) fL Immature Gran % (Auto) % Neut % (Auto) % Lymph % (Auto) % Hodgeman % (Auto) % Eos % (Auto) % Baso % (Auto) % Neut # (Auto) (1.4-6.5) K/uL Lymph # (Auto) (1.2-3.4) K/uL Hodgeman # (Auto) (0.24-0.82) K/uL Eos # (Auto) (0-0.50) K/uL Baso # (Auto) (0-0.2) K/uL Immature Gran # (Auto) (0.00-0.02) K/uL ESR 82 H (0-20) mm/hr PT (9.0-12.0) Seconds INR (0.9-1.1) APTT (21.0-31.0) Seconds PTT Ratio Sodium (136-145) mmol/L Potassium (3.5-5.1) mmol/L Chloride (98-107) mmol/L Carbon Dioxide (21-32) mmol/L Anion Gap (3-11) BUN (6-23) mg/dl Creatinine (0.6-1.4) mg/dl Est Cr Clr Drug Dosing ml/min Est GFR ( Amer) ml/min Est GFR (Non-Af Amer) ml/min BUN/Creatinine Ratio (10-20) Glucose (70-99(Fasting)) mg/dl Lactate 0.9 (0.4-2.0) mmol/L Calcium (8.5-10.1) mg/dl Magnesium (1.7-2.4) mg/dl Total Bilirubin (0.2-1.0) mg/dl Direct Bilirubin (0-0.2) mg/dl AST (13-39) U/L ALT (7-52) U/L Alkaline Phosphatase (34-104) U/L Troponin I High Sens (0-20) pg/ml C-Reactive Protein (0-0.5) mg/dl Total Protein (6.0-8.3) gm/dl Albumin (3.4-5.0) gm/dl Procalcitonin < 0.05 (0-0.5) ng/ml Urine Color Urine Appearance (Clear) Urine pH (4.5-7.5) Ur Specific [place] (1.000-1.030) Urine Protein (Negative) Urine Glucose (UA) (Negative) Urine Ketones (Negative) Urine Blood (Negative) Urine Nitrite (Negative) Urine Bilirubin (Negative) Urine Urobilinogen (Negative) Ur Leukocyte Esterase (Negative) Urine WBC (Auto) (0-5) /hpf Urine RBC (Auto) (0-4) /hpf U Hyaline Cast (Auto) (0-5) /lpf U Epithel Cells (Auto) (0-5) /lpf Urine Bacteria (Auto) (Negative) SARS-CoV-2, RNA, NAAT (NEGATIVE) 02/24/22 02/24/22 Range/Units 15:20 16:17 WBC (4.8-10.8) K/ul RBC (4.63-6.08) M/uL Hgb (14.0-18.0) g/dl Hct (40.1-51.0) % MCV (80.0-100.0) fL MCH (25.0-34.0) pg MCHC (32.0-36.0) g/dL RDW Std Deviation (36.4-46.3) fL RDW Coeff of Mercedes (11.5-14.5) % Plt Count (130-400) K/uL MPV (9.4-12.4) fL Immature Gran % (Auto) % Neut % (Auto) % Lymph % (Auto) % Hodgeman % (Auto) % Eos % (Auto) % Baso % (Auto) % Neut # (Auto) (1.4-6.5) K/uL Lymph # (Auto) (1.2-3.4) K/uL Hodgeman # (Auto) (0.24-0.82) K/uL Eos # (Auto) (0-0.50) K/uL Baso # (Auto) (0-0.2) K/uL Immature Gran # (Auto) (0.00-0.02) K/uL ESR (0-20) mm/hr PT (9.0-12.0) Seconds INR (0.9-1.1) APTT (21.0-31.0) Seconds PTT Ratio Sodium (136-145) mmol/L Potassium (3.5-5.1) mmol/L Chloride (98-107) mmol/L Carbon Dioxide (21-32) mmol/L Anion Gap (3-11) BUN (6-23) mg/dl Creatinine (0.6-1.4) mg/dl Est Cr Clr Drug Dosing ml/min Est GFR ( Amer) ml/min Est GFR (Non-Af Amer) ml/min BUN/Creatinine Ratio (10-20) Glucose (70-99(Fasting)) mg/dl Lactate (0.4-2.0) mmol/L Calcium (8.5-10.1) mg/dl Magnesium (1.7-2.4) mg/dl Total Bilirubin (0.2-1.0) mg/dl Direct Bilirubin (0-0.2) mg/dl AST (13-39) U/L ALT (7-52) U/L Alkaline Phosphatase (34-104) U/L Troponin I High Sens (0-20) pg/ml C-Reactive Protein (0-0.5) mg/dl Total Protein (6.0-8.3) gm/dl Albumin (3.4-5.0) gm/dl Procalcitonin (0-0.5) ng/ml Urine Color Yellow Urine Appearance Clear (Clear) Urine pH 6.5 (4.5-7.5) Ur Specific [place] 1.016 (1.000-1.030) Urine Protein 3+ H (Negative) Urine Glucose (UA) Negative (Negative) Urine Ketones Negative (Negative) Urine Blood Trace H (Negative) Urine Nitrite Negative (Negative) Urine Bilirubin Negative (Negative) Urine Urobilinogen Negative (Negative) Ur Leukocyte Esterase Negative (Negative) Urine WBC (Auto) 1-5 (0-5) /hpf Urine RBC (Auto) 5-10 H (0-4) /hpf U Hyaline Cast (Auto) 1-5 (0-5) /lpf U Epithel Cells (Auto) 10-20 H (0-5) /lpf Urine Bacteria (Auto) Negative (Negative) SARS-CoV-2, RNA, NAAT NEGATIVE (NEGATIVE) Administered Medications Atorvastatin Calcium (Atorvastatin 40 Mg Tab) 40 mg PO QAM [facility] Stop: 03/26/22 20:14 Last Admin: 02/24/22 21:41 Dose: 40 mg Documented By: LIBRADO Gabapentin (Gabapentin 300 Mg Cap) 300 mg PO BID [facility] Stop: 03/26/22 20:59 Last Admin: 02/24/22 21:41 Dose: 300 mg Documented By: LIBRADO Heparin Sodium/Dextrose (Heparin Sodium/Dextrose) 25,000 units in 500 mls @ 42 mls/hr IV .[id number] [facility]; Protocol Stop: 03/26/22 21:29 Last Titration: 02/25/22 05:06 Dose: 2,100 units/hr, 42 mls/hr Documented By: LIBRADO Co-signed By: NESTOR Admin: 02/24/22 23:12 Dose: 1,900 units/hr, 38 mls/hr Documented By: LIBRADO Co-signed By: SANYA Insulin Aspart (Insulin Aspart Per Unit) 0 units SC ACHS [facility] Stop: 03/26/22 20:59 Last Admin: 02/24/22 21:38 Dose: 5 units Documented By: LIBRADO Co-signed By: JAMILA Tramadol HCl (Tramadol Hcl 50 Mg Tablet) 50 mg PO Q4H PRN PRN Reason: moderate pain Stop: 03/26/22 20:14 Last Admin: 02/24/22 20:35 Dose: 50 mg Documented By: PLF Discontinued Medications Aspirin (Aspirin 81 Mg Ectab) 81 mg PO NOW STA Stop: 02/24/22 20:16 Last Admin: 02/24/22 21:40 Dose: 81 mg Documented By: LIBRADO Heparin Sodium (Porcine) (Heparin Sod (Porcine) 1000 Unit/Ml) 8,000 units IV NOW ONE Stop: 02/24/22 21:31 Last Admin: 02/24/22 23:12 Dose: 8,000 units Documented By: LIBRADO Co-signed By: SANYA Ceftriaxone Sodium (Rocephin) 2,000 mg in 70 mls @ 140 mls/hr IV NOW STA Stop: 02/24/22 17:32 Last Infusion: 02/24/22 18:00 Dose: 0 mls/hr Documented By: Admin: 02/24/22 17:08 Dose: 140 mls/hr Documented By: OAM Heparin Sodium (Porcine) 4,000 (units/ Syringe) 4 mls @ 10 mls/min IV ONE ONE Stop: 02/25/22 05:01 Last Admin: 02/25/22 05:06 Dose: 10 mls/min Documented By: LIBRADO Co-signed By: NESTOR Ioversol (Optiray 320 500ml) 106 ml IV ONCE ONE Stop: 02/24/22 21:11 Last Admin: 02/24/22 21:11 Dose: 106 ml Documented By: LUZK Morphine Sulfate (Morphine Sulfate 4 Mg/Ml 1 Ml Carp\Vial) 4 mg IV NOW STA Stop: 02/24/22 14:14 Last Admin: 02/24/22 14:33 Dose: 4 mg Documented By: SE Ondansetron HCl (Ondansetron Inj 2 Mg/Ml 2 Ml Vial) 4 mg IV NOW STA Stop: 02/24/22 14:14 Last Admin: 02/24/22 14:33 Dose: 4 mg Documented By: SE Tramadol HCl (Tramadol Hcl 50 Mg Tablet) 50 mg PO NOW STA Stop: 02/24/22 19:04 Last Admin: 02/24/22 21:44 Dose: Not Given Documented By: LIBRADO Imaging Data Radiologist's Impression: Chest X-Ray 02/24/22 14:13 XR chest 1V portable CLINICAL HISTORY: Sepsis TECHNIQUE: Single frontal radiograph of the chest was obtained. Comparison: None available at the time of this dictation. FINDINGS: No lines and tubes are seen. The cardiomediastinal silhouette is normal. The lungs are clear. No evidence of pleural effusion or pneumothorax. IMPRESSION: No acute abnormalities and in particular no evidence of pneumonia. ACT 112: Negative or not required by law. Electronically signed by: Caio Sims M.D. 02/24/2022 3:33 PM Duplex Scan Lower Extremity Artery 02/24/22 14:13 US arterial duplex LE CLINICAL HISTORY: pain TECHNIQUE: Real-time grayscale and color and spectral Doppler ultrasound imaging of the bilateral lower extremity arteries was performed. Measurements calculated based on NASCET criteria. COMPARISON: Comparison is made to left lower extremity Doppler ultrasound 01/31/2022 FINDINGS: Monophasic waveforms are seen throughout the left lower extremity. No elevated velocities are seen. IMPRESSION: Monophasic waveforms throughout the left lower extremity compatible with peripheral vascular disease without critical stenosis. ACT 112: Negative or not required by law. Electronically signed by: Caio Sims M.D. 02/24/2022 4:51 PM Discharge Plan Visit Data Chief Complaint: Toe Injury/Pain Stated Complaint: FOOT ISSUES, TOE TURNING PURPLE ED Provider: uRy Vu Discharge Problem: Cellulitis of left leg, PAD (peripheral artery disease) Patient Disposition: Admitted As Inpatient Discharge Instructions Interventions: ED Discharge Assessment Last Done: 02/24/22 19:21
[2022-02-24 14:31] LABS: Basophils # (auto) 0.08 K/uL (0-0.2); Basophils % (auto) 0.8 %; Eosinophils # (auto) 0.24 K/uL (0-0.50); Eosinophils % (auto) 2.3 %; Hematocrit (blood only) 44.8 % (40.1-51.0); Hemoglobin 15.1 g/dl (14.0-18.0); Immature Granulocytes # (auto) 0.05 K/uL (0.00-0.02); Immature Granulocytes % (auto) 0.5 %; Lymphocytes # (auto) 2.35 K/uL (1.2-3.4); Lymphocytes % (auto) 22.7 %; Mean Corpuscular Hemoglobin 31.5 pg (25.0-34.0); Mean Corpuscular Hgb Conc 33.7 g/dL (32.0-36.0); Mean Corpuscular Volume 93.5 fL (80.0-100.0); Mean Platelet Volume 11.5 fL (9.4-12.4); Monocytes # (auto) 0.79 K/uL (0.24-0.82); Monocytes % (auto) 7.6 %; Neutrophils # (auto) 6.86 K/uL (1.4-6.5); Neutrophils % (auto) 66.1 %; Platelet Count 302 K/uL (130-400); RDW Coefficient of Variation 14.6 % (11.5-14.5); RDW Standard Deviation 50.9 fL (36.4-46.3); Red Blood Count 4.79 M/uL (4.63-6.08); White Blood Count 10.37 K/ul (4.8-10.8)
[2022-02-24 14:50] LABS: Partial Thromboplastin Ratio 0.9; Partial Thromboplastin Time 24.5 Seconds (21.0-31.0)
[2022-02-24 14:57] LABS: BUN Creatinine Ratio 11.8 (10-20); Bilirubin,Total 0.4 mg/dl (0.2-1.0); C Reactive Protein 2.47 mg/dl (0-0.5); Calcium 9.7 mg/dl (8.5-10.1); Creatinine Clr Calc Pharmacy 178.4 ml/min; Est GFR (African American) 122.9 ml/min; Magnesium 1.6 mg/dl (1.7-2.4); Potassium 3.8 mmol/L (3.5-5.1); Total Protein 7.7 gm/dl (6.0-8.3); Troponin I High Sensitivity 12.2 pg/ml (0-20)
--- NOTE | 2022-02-24 15:34 | XRay Report ---
XR chest 1V portable CLINICAL HISTORY: Sepsis TECHNIQUE: Single frontal radiograph of the chest was obtained. Comparison: None available at the time of this dictation. FINDINGS: No lines and tubes are seen. The cardiomediastinal silhouette is normal. The lungs are clear. No evid ence of pleural effusion or pneumothorax. IMPRESSION: No acute abnormalities and in particular no evidence of pneumonia. ACT 112: Negative or not required by law. Electronically signed by: Caio Sims M.D. 02/24/2022 3:33 PM
[2022-02-24 16:48] LABS: Appearance Urine Clear (Clear); Bacteria Urine Automated Negative (Negative); Bilirubin Urine Negative (Negative); Blood Urine Trace (Negative); Color Urine Yellow; Glucose Urine UA Negative (Negative); Ketones Urine Negative (Negative); Leukocyte Esterase Urine Negative (Negative); Nitrite Urine Negative (Negative); Protein Urine 3+ (Negative); Specific Gravity Urine 1.016 (1.000-1.030); Urobilinogen Urine Negative (Negative); pH Urine 6.5 (4.5-7.5)
--- NOTE | 2022-02-24 16:54 | Ultrasound Report ---
US arterial duplex LE LT CLINICAL HISTORY: pain TECHNIQUE: Real-time grayscale and color and spectral Doppler ultrasound imaging of the bilateral low er extremity arteries was performed. Measurements calculated based on NASCET criteria. COMPARISON: Comparison is made to left lower extremity Doppler ultrasound 01/31/2022 FINDINGS: Monophasic waveforms are seen throughout the left lower extremity. No elevated velocities are seen. IMPRESSION: Monophasic waveforms throughout the left lower extremity compatible with peripheral vascular disease without critical stenosis. ACT 112: Negative or not required by law. Electronically signed by: Caio Sims M.D. 02/24/2022 4:51 PM
[2022-02-24] MEDS ORDERED: cefTRIAXone SODIUM 2,000 MG/70 ML BAG IV STA (17:03)
[2022-02-24] MEDS ORDERED: traMADol HCL 50 MG TABLET PO STA (19:03)
--- NOTE | 2022-02-24 20:01 | History & Physical Report ---
Date of Service February 24, 2022 Assessment & Plan (1) PVD (peripheral vascular disease): (2) Diabetic neuropathy: Plan: Admit to [facility] telemetry Patient presenting from home with reports of left foot pain and left fourth toe pain and discoloration on the plantar aspect In the ED, LLE arterial duplex shows peripheral vascular disease without critical stenosis. Pedal pulses very diminished but palpable, left foot is warm to the touch. Case was [place] [facility] [place] --recommend obtaining CTA chest/ABD/pelvis to evaluate for other sources of potential emboli. LLE arterial duplex is adequate study to evaluate leg arterial territ ory. Monitor on telemetry for possible atrial fibrillation. Will start IV heparin and ASA 81 mg Start atorvastatin 40 mg daily, check lipid panel in a.m. Pain control with as needed tramadol and morphine. Due to diabetic neuropathy, will add gabapentin 300 mg twice daily. Doppler pulses q4h Vascular surgery consult (3) T2DM (type 2 diabetes mellitus): Plan: Hgb A1c 7.6 01/2022 Lantus and NovoLog per protocol while hospitalized (4) HTN (hypertension): Plan: Continue lisinopril (5) Open wound of left thigh: Plan: History of large left thigh wound and abscess dating back to 12/2021. Recently admitted for management of infection and abscess of wound. Completed antibiotic course. Seems to be healing well, no signs of recurrent infection. Wound care nurse to follow during admission. (6) DVT prophylaxis: Plan: On IV heparin History of Present Illness Chief Complaint: Left foot pain, left 4th toe discoloration Primary Care Provider: Julio César Pulliam DO 56-year-old male with PMH DM type II on insulin, MEETA, PVD, HTN, left foot drop, and other problems listed below who presents to the ED for evaluation of left foot pain and left fourth toe discoloration. Patient with history of large left thigh wound with associated abscess dating back to December 2021. Patient recently admitted to [facility] 01/31 through 02/06 for recurring left thigh wound and at abscess. Cultures grew 2 strains of Pseudomonas and group B beta strep. Patient was discharged on p.o. Cipro and p.o. Flagyl which he completed the courses. Patient was seen by PCP on 02/16 for hospital follow-up and was placed on Keflex, patient is unsure of reason. Patient reports he was taking Keflex until yesterday however self stopped due to development of diarrhea. Patient has been following with outpatient wound clinic as well as home health. He states that about 1 week ago, he developed acute left foot and left fourth toe pain. Patient describes the pain as severe and as a "hot poker". Patient reports pain with bedsheet on top. Patient was seen at the wound clinic on 02/22 and noted to have a discolored left fourth toe. Wound clinic notified patient's PCP of discolored toe and elevated BP. PCP ordered ASA, Plavix, and increase lisinopril dose. Patient reports he has not started aspirin or Plavix. He states that his left thigh wound is healing well. Dressing was changed by home health this morning. Patient has some chronic redness and discoloration to his bilateral lower extremities. Patient states the redness is slightly worse than baseline. Patient denies fevers and chills. No chest pain or shortness of breath. Denies lightheadedness, dizziness, diaphoresis, syncopal events. No abdominal pain, nausea, vomiting. Denies urinary symptoms. In the ED, arterial duplex is compatible with peripheral vascular disease without critical stenosis. Allergies Allergy/AdvReac Type Severity Reaction Status Date / Time metformin AdvReac Severe SEVERE Verified 02/22/22 13:33 DIARRHEA Home Medications Medication Instructions Recorded Confirmed Type Lactobacillus acidophilus 1 25 mmu cells PO BID #30 tabs 02/06/22 02/24/22 Rx billion cell tablet blood sugar diagnostic (OneTouch #100 ea 02/06/22 02/24/22 Rx Ultra Test strips) blood-glucose meter (OneTouch #1 ea 02/06/22 02/24/22 Rx Ultra2 Meter) insulin aspart U-100 100 unit/mL 1 sliding scale dose subcut 02/06/22 02/24/22 Rx (3 mL) subcutaneous pen (Novolog USEASDIRECTD #15 mL Flexpen U-100 Insulin aspart) insulin glargine 100 unit/mL (3 40 unit (0.4 mL) subcut QAM #15 mL 02/06/22 02/24/22 Rx mL) subcutaneous pen (Lantus Solostar U-100 Insulin) lisinopril 20 mg tablet 40 mg PO QAM 02/24/22 02/24/22 History Past Med/Surg History Medical History Diabetic neuropathy HLD (hyperlipidemia) HTN (hypertension) Morbid obesity MEETA (obstructive sleep apnea) not on cpap or O2 T2DM (type 2 diabetes mellitus) Surgical History Hx of laminectomy L3-S1 Family History Other Cancer Diabetes Family history of blood clots Heart disease Social History Smoking Status: Current every day smoker Tobacco Type: Pipe and Cigars Cigarettes Per Day: 4; Second Hand Exposure: No; Hx Alcohol Use: No Hx Substance Use: Yes Prescribed Medications: Marijuana Last Used Substance: Days (ago) Last Used Substance Other:: last night Substance Use Type Other:: stated helps with his neuropathy pain Preferred Language: Eritrean Communication Ability: Effective Visual Impairment: Limited Hearing Ability: Hard of Hearing Restrictive Preparation Operator Required: No Beliefs That Will Affect Care: None marital status: marital status details: but currently going through divorce Current Living Situation: Homeless and Other Current Living Situation Comment: staying with friend currently current occupational status: unemployed How many Children do You have: 2 How many Children do You have Comment: son is involved with care and able to assist with care as needed (son lives 30 minutes from pt) Feels Safe at Home: Yes Diet Comment: tries to pay attention to what he eats regarding diabetes. during the past year weight has: increased > 10 lbs Assistive Devices: Glasses and Walker Review of Systems Review of Systems: ROS per HPI, all other systems reviewed and negative Physical Exam Constitutional: WD/WN, vitals as above + obese Eyes: PERRL, conjunctivae normal, anicteric sclerae ENMT: external ear and nose normal, oropharynx normal Respiratory: normal respiratory effort, lungs clear to auscultation Cardiovascular: Rate/Rhythm: regular rate and regular rhythm Vessels: + abnormal peripheral pulses (Pedal pulses very diminished) Extremities: + edema (+2 edema BLE) Gastrointestinal (Abdomen): normal bowel sounds, soft, nontender, no hepatosplenomegaly Musculoskeletal: no cyanosis or clubbing, extremities motor strength 5/5 Skin: no rashes, warm and dry Dressing in place to left anterior thigh, patient declined removal --no significant surrounding erythema or drainage noted Dry scaly skin with erythema and chronic venous changes noted BLE Left fourth toe with erythema and purplish discoloration noted on the plantar aspect Significant pain with minimal touch to the left foot Neurologic: PERRL, EOMI, accommodation nl, no face palsy, no dysarthria Psychiatric: A+Ox3, euthymic affect Results & Data Results & Data ([facility]) Vital Signs (Past 12 Hours) Vital Signs Temp Pulse Pulse Resp BP BP Pulse Ox 02/24/22 18:00 85 17 152/97 H 94 02/24/22 17:15 79 15 95 02/24/22 17:00 80 16 163/88 H 94 02/24/22 16:00 89 20 165/99 H 94 02/24/22 15:45 84 20 182/98 H 94 02/24/22 15:30 89 19 177/97 H 96 02/24/22 15:15 95 H 19 161/90 H 95 02/24/22 15:04 83 26 H 172/96 H 98 02/24/22 14:31 95 02/24/22 13:53 36.9 C 92 H 18 160/93 H 95 O2 Del Method 02/24/22 18:00 02/24/22 17:15 Room Air 02/24/22 17:00 Room Air 02/24/22 16:00 Room Air 02/24/22 15:45 Room Air 02/24/22 15:30 Room Air 02/24/22 15:15 Room Air 02/24/22 15:04 Room Air 02/24/22 14:31 Room Air 02/24/22 13:53 Room Air Laboratory Results Short CBC 02/24/22 Range/Units 14:11 WBC 10.37 (4.8-10.8) K/ul Hgb 15.1 (14.0-18.0) g/dl Hct 44.8 (40.1-51.0) % Plt Count 302 (130-400) K/uL BMP 02/24/22 14:11 Sodium 137 Potassium 3.8 Chloride 104 Carbon Dioxide 27 BUN 8 Creatinine 0.68 Glucose 105 H Calcium 9.7 Liver Function 02/24/22 Range/Units 14:11 Total Bilirubin 0.4 (0.2-1.0) mg/dl Direct Bilirubin 0.0 (0-0.2) mg/dl AST 10 L (13-39) U/L ALT 7 (7-52) U/L Alkaline Phosphatase 71 (34-104) U/L Albumin 4.0 (3.4-5.0) gm/dl Urine 02/24/22 Range/Units 16:17 Urine Color Yellow Urine Appearance Clear (Clear) Urine pH 6.5 (4.5-7.5) Ur Specific Brenton 1.016 (1.000-1.030) Urine Protein 3+ H (Negative) Urine Glucose (UA) Negative (Negative) Diagnostic Findings Chest X-Ray 02/24/22 14:13 XR chest 1V portable CLINICAL HISTORY: Sepsis TECHNIQUE: Single frontal radiograph of the chest was obtained. Comparison: None available at the time of this dictation. FINDINGS: No lines and tubes are seen. The cardiomediastinal silhouette is normal. The lungs are clear. No evidence of pleural effusion or pneumothorax. IMPRESSION: No acute abnormalities and in particular no evidence of pneumonia. ACT 112: Negative or not required by law. Electronically signed by: Caio Sims M.D. 02/24/2022 3:33 PM Duplex Scan Lower Extremity Artery 02/24/22 14:13 US arterial duplex LE LT CLINICAL HISTORY: pain TECHNIQUE: Real-time grayscale and color and spectral Doppler ultrasound imaging of the bilateral lower extremity arteries was performed. Measurements calculated based on NASCET criteria. COMPARISON: Comparison is made to left lower extremity Doppler ultrasound 01/31/2022 FINDINGS: Monophasic waveforms are seen throughout the left lower extremity. No elevated velocities are seen. IMPRESSION: Monophasic waveforms throughout the left lower extremity compatible with peripheral vascular disease without critical stenosis. ACT 112: Negative or not required by law. Electronically signed by: Caio Sims M.D. 02/24/2022 4:51 PM Code Status & VTE Plan VTE Prophylaxis Plan VTE Prophylaxis will be ordered: No Supervising Physician Co-Signing Physician Notes 56-year-old diabetic man with chronic medical problems including bilateral foot neuropathy presented with worsening left foot pain in the last 24 hours and left fourth toe discoloration of a purplish nature. He has a history of PAD and is an active smoker smoking 2 cigars daily. Recently underwent abscess washout with treatment as noted above. 1 week ago he developed acute left foot pain with left fourth toe pain. This went away and came back again yesterday. Patient denies any known injury Physical exam reveals an morbidly obese man in no acute distress who is mentating normally. Heart and lung exam is unremarkable. Patient is disheveled and unkempt. Skin appears unclean and there is a darkened lacy pattern consistent with grime on his feet along with scaly skin around the toes and toenails and bottom of the feet bilaterally. There is an erythema that is not consistent with infection present in the bilateral anterior tibiae. He is very tender to any touch of his bilateral lower extremities. His fourth left toe is normal color on the top with a dark purple on the underside of the toe. Left foot is warm and well-perfused as his right foot. Severe toe pain in setting of uncontrolled neuropathic pain along with disc coloration of the plantar aspect of the left toe likely represents a cholesterol emboli from known arterial disease. Started heparin with bolus, which may help with pain. Vascular consult requested for Saturday. We did discuss the case with [facility] vascular surgeon by phone who recommended topical Nitropaste to the affected toe as symptom management, starting aspirin, and obtaining a CTA of the chest abdomen pelvis to look for a source of this potential embolus. We will continue Doppler checks every 4 hours. Will give him gabapentin twice daily and tramadol as needed for pain. Titrate as needed. Continue wound care on left thigh. Patient is seen in wound care clinic as outpatient. DO Uriel.
[2022-02-24] MEDS ORDERED: ASPIRIN 81 MG ECTAB PO STA (20:15)
[2022-02-24] MEDS ORDERED: DEXTROSE 50% 50 ML SYRINGE IV PRN (20:15)
[2022-02-24] MEDS ORDERED: CARBOHYDRATES FOR HYPOGLYCEMIA PO PRN (20:15)
[2022-02-24] MEDS ORDERED: GLUCOSE 10 TAB/TUBE PO PRN (20:15)
[2022-02-24] MEDS ORDERED: ACETAMINOPHEN 325 MG TAB PO PRN (20:15)
[2022-02-24] MEDS ORDERED: GLUCOSE 40% GEL 15 GM TUBE PO PRN (20:15)
[2022-02-24] MEDS ORDERED: GLUCAGON FOR INJ 1 MG VIAL SQ PRN (20:15)
[2022-02-24] MEDS ORDERED: Heparin IV Adult Wt-Based Standard WITH Bolus Protocol IV SCH (20:23)
[2022-02-24] MEDS: traMADol HCL 50 MG TABLET PO PRN (20:35)
[2022-02-24] MEDS ORDERED: OPTIRAY 320 500ml IV ONE (21:10)
[2022-02-24] MEDS ORDERED: HEPARIN SOD (PORCINE) 1000 UNIT/ML IV ONE (21:30)
--- NOTE | 2022-02-24 21:32 | CT Scan Report ---
CT angio abdomen pelvis w con CLINICAL HISTORY: eval for embolus TECHNIQUE: Multidetector row helical CT of the abdomen and pelvis was performed, following intravenou s administration of iodinated contrast. No oral contrast was administered. Automated dose lowering te chniques and/or adjustment according to patient size were utilized for this exam. Coronal and sagitta l reformations were obtained. MIP and 3D volume rendered reconstructions were obtained. CT DOSE: 2428.97 mGy.cm Comparison: Comparison is made to CT left femur 01/31/2022 FINDINGS: Lower chest: For findings above the diaphragm, please see CT chest performed same day. Liver: Unremarkable. No focal lesions are seen. Gallbladder and biliary tree: Cholelithiasis is seen without evidence of cholecystitis. No intra- or extrahepatic biliary ductal dilation. Pancreas: Unremarkable, no focal lesions. Spleen: Unremarkable. Adrenals: Thickening of the bilateral adrenal glands is seen. Kidneys and ureters: Unremarkable. Bladder: Diffuse homogeneous wall thickening is seen. Reproductive organs: Unremarkable. Bowel: The appendix is normal. There is fat stranding surrounding multiple loops of small bowel in th e left lower quadrant. Lymph nodes Retroperitoneal: Unremarkable. Pelvic: Unremarkable. Mesenteric: Unremarkable. Peritoneum: Normal. Abdominal wall: Injection granuloma is seen in the right lower quadrant. Bones: Degenerative changes in the visualized spine. CT angiogram: The abdominal aortic contours appear intact without evidence of aneurysmal dilatation a nd/or dissection. No significant atherosclerosis is seen. The origins of the celiac axis, superior mesenteric, inferior mesenteric and bilateral renal arteries are patent. There is occlusion of the right internal iliac artery with distal reconstitution. IMPRESSION: 1. There is occlusion of the right internal iliac artery with distal reconstitution. Otherwise the g reat vessels are intact. 2. Vascular prominence and fat stranding about loops of small bowel may represent enteritis. 3. Bladder wall thickening is noted, correlation with urinalysis is recommended to exclude cystitis. ACT 112: Negative or not required by law. Electronically signed by: Caio Sims M.D. 02/24/2022 9:29 PM
[2022-02-24] MEDS: INSULIN ASPART PER UNIT SC SCH (21:38)
--- NOTE | 2022-02-24 21:38 | CT Scan Report ---
CT angio chest w con CLINICAL HISTORY: eval for embolus, not PE protocol TECHNIQUE: Multidetector row helical CT of the chest was performed with angiographic protocol. Mckeon l and sagittal reformations were obtained. Coronal and sagittal MIPS were obtained from the axial benjamin a set and were submitted for review. Automated dose lowering techniques and/or adjustment according to patient size were utilized for this exam. Comparison: Comparison is made to chest radiograph 02/24/2022 FINDINGS: Lungs and pleura: Normal. There is a 9 mm triangular nodule in the right middle lobe likely represent ing an intraparenchymal lymph node. Heart and pericardium: Heart size is normal. No pericardial effusion. Vessels: The pulmonary trunk measures 36 mm in diameter. No evidence of large or central pulmonary em bolus within the limits of a nondedicated exam. There is no acute aortic injury. Mediastinum and mukesh: Subcentimeter lymph nodes are seen. Chest wall and lower neck: Unremarkable. Abdomen: For findings below the diaphragm, please refer to CT of the abdomen dated the same. Bones: Unremarkable. IMPRESSION: No evidence of pulmonary embolism. Within the limits of a nondedicated study. No acute aortic injury is seen. ACT 112: Negative or not required by law. Electronically signed by: Caio Sims M.D. 02/24/2022 9:36 PM
[2022-02-24] MEDS: GABAPENTIN 300 MG CAP PO SCH (21:41)
[2022-02-24] MEDS: ATORVASTATIN 40 MG TAB PO SCH (21:41)
[2022-02-24 22:17] LABS: Basophils # (auto) 0.08 K/uL (0-0.2); Basophils % (auto) 0.9 %; Eosinophils % (auto) 4.4 %; Hematocrit (blood only) 43.5 % (40.1-51.0); Hemoglobin 14.6 g/dl (14.0-18.0); Immature Granulocytes # (auto) 0.04 K/uL (0.00-0.02); Immature Granulocytes % (auto) 0.4 %; Lymphocytes # (auto) 2.44 K/uL (1.2-3.4); Lymphocytes % (auto) 26.7 %; Mean Corpuscular Hemoglobin 31.6 pg (25.0-34.0); Mean Corpuscular Hgb Conc 33.6 g/dL (32.0-36.0); Mean Corpuscular Volume 94.2 fL (80.0-100.0); Mean Platelet Volume 11.6 fL (9.4-12.4); Monocytes # (auto) 0.84 K/uL (0.24-0.82); Monocytes % (auto) 9.2 %; Neutrophils # (auto) 5.34 K/uL (1.4-6.5); Neutrophils % (auto) 58.4 %; Platelet Count 272 K/uL (130-400); RDW Coefficient of Variation 14.8 % (11.5-14.5); RDW Standard Deviation 51.1 fL (36.4-46.3); Red Blood Count 4.62 M/uL (4.63-6.08); White Blood Count 9.14 K/ul (4.8-10.8)
[2022-02-24] MEDS: HEPARIN SODIUM/DEXTROSE 25,000 UNITS/500 ML BAG IV SCH (23:12)
--- NOTE | 2022-02-24 23:26 | Communication Note ---
Date of Service: February 24, 2022 Notified by RN of patient clarifications to admission CODE STATUS. No chest compressions, defibrillation, intubation as per discussion with patient. Patient agreeable to cardiac medications.
[2022-02-25 04:35] LABS: Hematocrit (blood only) 39.2 % (40.1-51.0); Hemoglobin 13.2 g/dl (14.0-18.0); Mean Corpuscular Hemoglobin 31.4 pg (25.0-34.0); Mean Corpuscular Hgb Conc 33.7 g/dL (32.0-36.0); Mean Corpuscular Volume 93.3 fL (80.0-100.0); Mean Platelet Volume 11.5 fL (9.4-12.4); Platelet Count 248 K/uL (130-400); RDW Coefficient of Variation 14.8 % (11.5-14.5); RDW Standard Deviation 50.9 fL (36.4-46.3); White Blood Count 8.82 K/ul (4.8-10.8)
[2022-02-25 04:48] LABS: Partial Thromboplastin Ratio 1.3; Partial Thromboplastin Time 35.8 Seconds (21.0-31.0)
[2022-02-25 04:56] LABS: BUN Creatinine Ratio 15.5 (10-20); Calcium 8.9 mg/dl (8.5-10.1); Chol HDL Ratio 10.2 (0-5); Creatinine Clr Calc Pharmacy 209.2 ml/min; Est GFR (African American) 131.2 ml/min; Est GFR (Non-African American) 113.2 ml/min; Potassium 3.6 mmol/L (3.5-5.1)
[2022-02-25] MEDS ORDERED: HEPARIN IV BOLUS 4,000 UNITS in SYRINGE 0 ML IV ONE (05:00)
[2022-02-25] MEDS: ATORVASTATIN 40 MG TAB PO SCH (08:29)
[2022-02-25] MEDS: GABAPENTIN 300 MG CAP PO SCH ×2 (08:29→20:48)
[2022-02-25] MEDS: lisinopril 40 MG TAB PO SCH (08:30)
[2022-02-25] MEDS: ASPIRIN 81 MG ECTAB PO SCH (08:30)
[2022-02-25] MEDS: INSULIN ASPART PER UNIT SC SCH ×4 (08:35→22:52)
[2022-02-25] MEDS: traMADol HCL 50 MG TABLET PO PRN ×2 (08:57→20:46)
[2022-02-25] MEDS: LANTUS PER UNIT CHARGE SQ SCH (09:47)
[2022-02-25] MEDS: HEPARIN SODIUM/DEXTROSE 25,000 UNITS/500 ML BAG IV SCH ×3 (11:08→21:36)
[2022-02-25 11:27] LABS: Partial Thromboplastin Ratio 1.4; Partial Thromboplastin Time 37.9 Seconds (21.0-31.0)
[2022-02-25] MEDS ORDERED: HEPARIN SOD (PORCINE) 1000 UNIT/ML IV ONE (12:15)
--- NOTE | 2022-02-25 13:45 | Electrocardiogram Report ---
Test Reason : Blood Pressure : / mmHG Vent. Rate : 086 BPM Atrial Rate : 086 BPM P-R Int : 146 ms QRS Dur : 146 ms QT Int : 426 ms P-R-T Axes : 022 -31 007 degrees QTc Int : 509 ms Sinus rhythm with frequent Premature ventricular complexes Left axis deviation Right bundle branch block Abnormal ECG No previous ECGs available Confirmed by Martin Sanders ([id number]) on 02/25/2022 1:45:52 PM Referred By: REFERRED SELF Confirmed By:Martin Sanders
--- NOTE | 2022-02-25 16:10 | Hospitalist Progress Note ---
Date of Service February 25, 2022 Assessment & Plan (1) PVD (peripheral vascular disease): (2) Diabetic neuropathy: Plan: Present on admission from home with reports of left foot pain and left fourth toe pain and discoloration on the plantar aspect Duplex of LLE showed monophasic waveforms throughout the left lower extremity compatible with peripheral vascular disease without critical stenosis. CT abd/pelvis showedocclusion of the right internal iliac artery with distal reconstitution. Otherwise the great vessels are intact. CTA chest showed no evidence of pulmonary embolism. Within the limits of a nondedicated study. No acute aortic injury is seen. Cholesterol 225, HDL 22, Triglycerides 193 and LDL 164 Hospitalist team discussed case with Vascular surgery at [facility] [place] Vascular surgery eval pending Continue IV heparin, ASA 81mg and statin Continue monitor closely in tele Pain control with as needed tramadol and morphine and gabapentin due to diabetic neuropathy Continue pulse check q4h (3) T2DM (type 2 diabetes mellitus): Plan: Hgb A1c 7.6 01/2022 Lantus and NovoLog per protocol while hospitalized Continue monitor BS (4) HTN (hypertension): Plan: BP elevated Continue lisinopril Will consider to add hydralazine prn (5) Open wound of left thigh: Plan: History of large left thigh wound and abscess dating back to 12/2021. Recently admitted for management of infection and abscess of wound. Completed antibiotic course. Seems to be healing well, no signs of recurrent infection. Wound care nurse to follow during admission. (6) DVT prophylaxis: Plan: On IV heparin Disposition Will discharge once medically stable Pt refused to wear the tele monitor Admission and Anticipated Discharge Date Admission Date: February 24, 2022 Subjective Pt was seen and examined for follow up of left 4th toe discoloration Lying in bed with no acute distress Pt said that he has chronic lower extremities pain Nurse called that patient refused to have the tele monitor on Denies any chest pain, palpitation, dizziness and SOB Review of Systems Review of Systems: All systems reviewed & are unremarkable except as noted in Subjective Physical Exam Physical Exam: General- No acute distress Head- atraumatic Eyes- PERRL, EOMI, ENT- oropharynx clear Neck- supple, no JVD Lungs- clear to auscultation Heart- regular rhythm; no murmur Abdomen- normal bowel sounds, soft, nontender Extremities- +edema, +chronic b/l pain from neuropathy, +Left fourth toe with purplish discoloration noted on the plantar aspect Neuro- alert, oriented x 3; PERRL, EOMI; no facial palsy; no dysarthria Skin- warm & dry Results & Data Results & Data ([facility]) Vital Signs (Past 12 Hours) Vital Signs Temp Pulse Resp BP Pulse Ox O2 Del Method 02/25/22 15:26 37.0 C 75 20 172/96 H 94 Room Air 02/25/22 11:19 36.9 C 65 18 159/84 H 94 Room Air 02/25/22 08:00 Room Air 02/25/22 07:30 36.6 C 81 18 143/90 H 94
[2022-02-25 18:38] LABS: Partial Thromboplastin Ratio 1.5; Partial Thromboplastin Time 41.5 Seconds (21.0-31.0)
[2022-02-26] MEDS: traMADol HCL 50 MG TABLET PO PRN ×3 (00:36→19:24)
[2022-02-26] MEDS: LORazepam 0.5 MG TAB PO PRN (01:06)
[2022-02-26 01:11] LABS: Partial Thromboplastin Ratio 1.5; Partial Thromboplastin Time 41.8 Seconds (21.0-31.0)
[2022-02-26] MEDS ORDERED: SODIUM CHLORIDE 0.9% 1000ML 1,000 ML IV SCH (05:45)
[2022-02-26] MEDS: ASPIRIN 81 MG ECTAB PO SCH (08:15)
[2022-02-26] MEDS: lisinopril 40 MG TAB PO SCH (08:15)
[2022-02-26] MEDS: GABAPENTIN 300 MG CAP PO SCH ×2 (08:15→20:59)
[2022-02-26] MEDS: ATORVASTATIN 40 MG TAB PO SCH (08:15)
[2022-02-26] MEDS: INSULIN ASPART PER UNIT SC SCH ×4 (08:16→21:39)
[2022-02-26] MEDS: HEPARIN SODIUM/DEXTROSE 25,000 UNITS/500 ML BAG IV SCH ×4 (08:16→17:23)
[2022-02-26] MEDS: LANTUS PER UNIT CHARGE SQ SCH (08:17)
[2022-02-26 08:49] LABS: Partial Thromboplastin Ratio 1.8
[2022-02-26 08:52] LABS: Partial Thromboplastin Time 49.5 Seconds (21.0-31.0)
--- NOTE | 2022-02-26 11:25 | Consultation ---
Date of Consultation February 26, 2022 Assessment & Plan (1) Aortoiliac occlusive disease: Pt with L iliac artery stenosis/occlusion and possibly L 4th toe embolization. Pt discussed with Dr Weston, recommends pt undergo aortogram with iliac intervention. Location of his L thigh open wound may be a problem for intraarterial access. Pt became very frustrated during this discussion d/t this procedure not "curing" his L 4th toe. He was wondering why the toe could not be amputated simultaneously. Advised pt that amputation is not recommended for viable tissue d/t the risks of healing an open wound/infection in a patient with his medical problems. Will discuss with pt further tomorrow. Patient was seen, examined, and chart reviewed. Agree with exam and treatment plan of the Vascular PA. History of Present Illness Reason for Consultation: LLE 4th toe pain, PAD Attending Physician: Odette Aparicio MD History of Present Illness 56 yo m with hx of DMII, HTN, hyperlipidemia, severe diabetic and lumbar neuropathy, obesity, admitted with pain and discoloration of L 4th toe, seen in consultation today for PAD. 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 States his feet are chronically very sensitive, but developed much more severe pain about 1 week ago in the 4th toe. States the home nurses noted some discoloration, so sent him to [facility] for eval. Pt states he was seen at [facility] in 2018 for PAD, but no procedure was ever done. [facility] did not have sx at the time, but his PCP had noted no palpable pulses in his feet. Has not been followed for this since then. Recently moved here from [place], where he was inpatient for a L thigh abscess with flesh eating bacterial infection. Infection has been controlled and he is now slowly healing the large wound in his L thigh. Follows with the wound clinic for this. Pt states he has pain BL calves when ambulating, but L is worse than R. Does not ambulate much d/t multiple problems. Pt expresses frustration at the length of time it has taken him to heal his wounds and have abx and be in hospitals. Imaging demonstrates occlusive lesion in proximal L iliac artery, as well as diffuse arterial disease throughout. Allergies Allergy/AdvReac Type Severity Reaction Status Date / Time metformin AdvReac Severe SEVERE Verified 02/22/22 13:33 DIARRHEA Home Medications Medication Instructions Recorded Confirmed Type Lactobacillus acidophilus 1 25 mmu cells PO BID #30 tabs 02/06/22 02/24/22 Rx billion cell tablet blood sugar diagnostic (OneTouch #100 ea 02/06/22 02/24/22 Rx Ultra Test strips) blood-glucose meter (OneTouch #1 ea 02/06/22 02/24/22 Rx Ultra2 Meter) insulin aspart U-100 100 unit/mL 1 sliding scale dose subcut 02/06/22 02/24/22 Rx (3 mL) subcutaneous pen (Novolog USEASDIRECTD #15 mL Flexpen U-100 Insulin aspart) insulin glargine 100 unit/mL (3 40 unit (0.4 mL) subcut QAM #15 mL 02/06/22 02/24/22 Rx mL) subcutaneous pen (Lantus Solostar U-100 Insulin) lisinopril 20 mg tablet 40 mg PO QAM 02/24/22 02/24/22 History Patient History Medical History Diabetic neuropathy HLD (hyperlipidemia) HTN (hypertension) Morbid obesity MEETA (obstructive sleep apnea) not on cpap or O2 T2DM (type 2 diabetes mellitus) Surgical History Hx of laminectomy L3-S1 Family History Other Cancer Diabetes Family history of blood clots Heart disease Social History Smoking Status: Current every day smoker Tobacco Type: Pipe and Cigars Cigarettes Per Day: 4; Second Hand Exposure: No; Hx Alcohol Use: No Hx Substance Use: No Preferred Language: Yoruba Communication Ability: Effective Visual Impairment: Limited Hearing Ability: Hard of Hearing Remote Medical Coder Required: No Beliefs That Will Affect Care: None marital status: marital status details: but currently going through divorce Current Living Situation: Alone Current Living Situation Comment: staying with friend currently current occupational status: unemployed How many Children do You have: 2 How many Children do You have Comment: son is involved with care and able to assist with care as needed (son lives 30 minutes from pt) Feels Safe at Home: Yes Diet Comment: tries to pay attention to what he eats regarding diabetes. during the past year weight has: increased > 10 lbs Assistive Devices: Walker and Wheelchair Review of Systems Review of Systems: All systems reviewed & are unremarkable except as noted in HPI & below Physical Exam Constitutional: + morbidly obese, cooperative and comfortable; not in distress ENMT: Ears: no hearing impairment Neck: trachea midline Respiratory: normal respiratory effort, lungs clear to auscultation Auscultation: + diminished lung sounds Cardiovascular: Rate/Rhythm: regular rate and regular rhythm Vessels: femoral pulses present (+3 R, nonpalpable L), posterior tibial pulses present (RLE +1, LLE nonpalpble), dorsalis pedis pulses present (RLE +1, LLE nonpalpable), brachial pulses present and radial pulses present; + abnormal peripheral pulses Extremities: + edema; + abnormal capillary refill (L 4th toe sluggish.) cap refill difficult to assess d/t pt having severe sensitivity to ALL TOES Gastrointestinal (Abdomen): Inspection/Auscultation: abdomen normal to inspection and normal bowel sounds Percussion/Palpation: abdomen soft; abdomen nontender Musculoskeletal: no cyanosis or clubbing, extremities motor strength 5/5 Skin: no rashes, warm and dry (BL shins with skiin changes venous insufficiency, edema) + wound (L proximal thigh with large deep open wound noted.) Neurologic: moves all extremities and awake; no focal motor deficits and not confused Psychiatric: Orientation: alert and oriented x 3 Affect: + irritable affect and + angry affect Results & Data ([facility]) Vital Signs (Past 12 Hours) Vital Signs Temp Pulse Resp BP Pulse Ox O2 Del Method 02/26/22 08:14 36.7 C 60 18 168/98 H 95 Room Air 02/26/22 05:00 36.4 C L 71 16 148/51 H 96 Room Air 02/25/22 23:00 36.8 C 77 18 181/95 H 93 Room Air
[2022-02-26] MEDS: oxyCODONE HCL IR 5 MG TAB (IMMEDIATE RELEASE) PO PRN (17:31)
--- NOTE | 2022-02-27 01:19 | Hospitalist Progress Note ---
Date of Service February 26, 2022 Assessment & Plan (1) PVD (peripheral vascular disease): (2) Diabetic neuropathy: Plan: Present on admission from home with reports of left foot pain and left fourth toe pain and discoloration on the plantar aspect Duplex of LLE showed monophasic waveforms throughout the left lower extremity compatible with peripheral vascular disease without critical stenosis. CT abd/pelvis showedocclusion of the right internal iliac artery with distal reconstitution. Otherwise the great vessels are intact. CTA chest showed no evidence of pulmonary embolism. Within the limits of a nondedicated study. No acute aortic injury is seen. Cholesterol 225, HDL 22, Triglycerides 193 and LDL 164 Hospitalist team discussed case with Vascular surgery at [facility] Vascular surgery on board Plan to undergo aortogram with iliac intervention. Continue IV heparin, ASA 81mg and statin Pain control with as needed tramadol and gabapentin due to diabetic neuropathy Will d/c morphine and add oxycodone will consult pain management Continue pulse check q4h (3) T2DM (type 2 diabetes mellitus): Plan: Hgb A1c 7.6 01/2022 Lantus and NovoLog per protocol while hospitalized Continue monitor BS (4) HTN (hypertension): Plan: BP elevated Continue lisinopril Will consider to add hydralazine prn (5) Open wound of left thigh: Plan: History of large left thigh wound and abscess dating back to 12/2021. Recently admitted for management of infection and abscess of wound. Completed antibiotic course. Seems to be healing well, no signs of recurrent infection. Wound care nurse to follow during admission. (6) DVT prophylaxis: Plan: On IV heparin Disposition Will discharge once medically stable Pt refused to wear the tele monitor Admission and Anticipated Discharge Date Admission Date: February 24, 2022 Subjective Pt was seen and examined for follow up of left 4th toe discoloration Lying in bed with no acute distress Pt said that he continue to have chronic lower extremities pain He is not too happy because vascular will not amputate the toe Denies any chest pain, palpitation, dizziness and SOB Review of Systems Review of Systems: All systems reviewed & are unremarkable except as noted in Subjective Physical Exam Physical Exam: General- No acute distress Head- atraumatic Eyes- PERRL, EOMI, ENT- oropharynx clear Neck- supple, no JVD Lungs- clear to auscultation Heart- regular rhythm; no murmur Abdomen- normal bowel sounds, soft, nontender Extremities- +edema, +chronic b/l pain from neuropathy, +Left fourth toe with purplish discoloration noted on the plantar aspect Neuro- alert, oriented x 3; PERRL, EOMI; no facial palsy; no dysarthria Skin- warm & dry Results & Data Results & Data ([facility]) Vital Signs (Past 12 Hours) Vital Signs Temp Pulse Resp BP Pulse Ox O2 Del Method 02/26/22 23:07 37.0 C 71 20 150/80 H 95 Room Air 02/26/22 19:54 37.0 C 70 20 147/78 H 96 Room Air 02/26/22 16:01 159/97 H 02/26/22 15:45 37.0 C 75 20 180/96 H 95 Room Air
[2022-02-27] MEDS: traMADol HCL 50 MG TABLET PO PRN ×3 (01:52→20:33)
[2022-02-27] MEDS: HEPARIN SODIUM/DEXTROSE 25,000 UNITS/500 ML BAG IV SCH ×7 (03:51→22:52)
[2022-02-27] MEDS: oxyCODONE HCL IR 5 MG TAB (IMMEDIATE RELEASE) PO PRN (03:52)
[2022-02-27 07:36] LABS: Hematocrit (blood only) 40.4 % (40.1-51.0); Hemoglobin 13.6 g/dl (14.0-18.0); Mean Corpuscular Hemoglobin 30.9 pg (25.0-34.0); Mean Corpuscular Hgb Conc 33.7 g/dL (32.0-36.0); Mean Corpuscular Volume 91.8 fL (80.0-100.0); Mean Platelet Volume 11.8 fL (9.4-12.4); Platelet Count 215 K/uL (130-400); RDW Coefficient of Variation 14.1 % (11.5-14.5); White Blood Count 6.69 K/ul (4.8-10.8)
[2022-02-27] MEDS: lisinopril 40 MG TAB PO SCH (07:47)
[2022-02-27] MEDS: GABAPENTIN 300 MG CAP PO SCH ×4 (07:47→20:31)
[2022-02-27] MEDS: ATORVASTATIN 40 MG TAB PO SCH (07:48)
[2022-02-27] MEDS: ASPIRIN 81 MG ECTAB PO SCH (07:48)
[2022-02-27 07:49] LABS: Partial Thromboplastin Ratio 1.6; Partial Thromboplastin Time 44.7 Seconds (21.0-31.0)
[2022-02-27 08:01] LABS: Calcium 9.2 mg/dl (8.5-10.1); Creatinine Clr Calc Pharmacy 190.8 ml/min; Est GFR (African American) 126.8 ml/min; Est GFR (Non-African American) 109.4 ml/min; Potassium 3.9 mmol/L (3.5-5.1)
[2022-02-27] MEDS: INSULIN ASPART PER UNIT SC SCH ×4 (09:05→20:34)
[2022-02-27] MEDS: LANTUS PER UNIT CHARGE SQ SCH (09:07)
--- NOTE | 2022-02-27 09:35 | Communication Note ---
Date of Service: February 27, [address] Weston today and procedure discussed with pt again. Recommending aortogram with iliac intervention, possible LLE angio with intervention in OR tomorrow. Procedure, risks, benefits, and alternatives discussed with pt by Dr Weston. Pt agreeable to proceed.
--- NOTE | 2022-02-27 09:46 | Pain Management Consultation ---
Date of Consultation February 27, 2022 Assessment & Plan (1) Aortoiliac occlusive disease: (2) PVD (peripheral vascular disease): (3) Diabetic neuropathy: (4) T2DM (type 2 diabetes mellitus): (5) Morbid obesity: Plan 1. I have further increased the Gabapentin to 300mg three times daily. May require further titration pending response. 2. Continue Tramadol, Oxycodone, and PRN IV Morphine for pain. He states that his pain control has improved with the current regimen. 3. Nothing interventional to offer at this time. Thank you for the consultation. Please contact with any questions or concerns. History of Present Illness Attending Physician: Odette Aparicio MD History of Present Illness This is a 56 year old male with peripheral vascular disease, diabetic neuropathy, type 2 diabetes, morbid obesity, hyperlipidemia, and hypertension. He does complain of acute pain in the left greater than right foot. The left fourth toe is his worst pain. He describes a burning, throbbing sensation. He is currently being worked up by vascular surgery. He has been placed on gabapentin 300 mg twice daily, tramadol, oxycodone, and as needed IV morphine. He does find the tramadol to be the most effective towards diminishing his pain. Pain is rated 7/10 currently. Pain is worse to the touch or with weightbearing. No true radicular symptoms. Case discussed with Dr. Alize Nevarez Allergies Allergy/AdvReac Type Severity Reaction Status Date / Time metformin AdvReac Severe SEVERE Verified 02/22/22 13:33 DIARRHEA Home Medications Medication Instructions Recorded Confirmed Type Lactobacillus acidophilus 1 25 mmu cells PO BID #30 tabs 02/06/22 02/24/22 Rx billion cell tablet blood sugar diagnostic (OneTouch #100 ea 02/06/22 02/24/22 Rx Ultra Test strips) blood-glucose meter (OneTouch #1 ea 02/06/22 02/24/22 Rx Ultra2 Meter) insulin aspart U-100 100 unit/mL 1 sliding scale dose subcut 02/06/22 02/24/22 Rx (3 mL) subcutaneous pen (Novolog USEASDIRECTD #15 mL Flexpen U-100 Insulin aspart) insulin glargine 100 unit/mL (3 40 unit (0.4 mL) subcut QAM #15 mL 02/06/22 02/24/22 Rx mL) subcutaneous pen (Lantus Solostar U-100 Insulin) lisinopril 20 mg tablet 40 mg PO QAM 02/24/22 02/24/22 History Patient History Medical History Diabetic neuropathy HLD (hyperlipidemia) HTN (hypertension) Morbid obesity MEETA (obstructive sleep apnea) not on cpap or O2 T2DM (type 2 diabetes mellitus) Surgical History Hx of laminectomy L3-S1 Family History Other Cancer Diabetes Family history of blood clots Heart disease Social History Smoking Status: Current every day smoker Tobacco Type: Pipe and Cigars Cigarettes Per Day: 4; Second Hand Exposure: No; Hx Alcohol Use: No Hx Substance Use: No Preferred Language: Kinyarwanda Communication Ability: Effective Visual Impairment: Limited Hearing Ability: Hard of Hearing Director Patient Required: No Beliefs That Will Affect Care: None marital status: marital status details: but currently going through divorce Current Living Situation: Alone Current Living Situation Comment: staying with friend currently current occupational status: unemployed How many Children do You have: 2 How many Children do You have Comment: son is involved with care and able to assist with care as needed (son lives 30 minutes from pt) Feels Safe at Home: Yes Diet Comment: tries to pay attention to what he eats regarding diabetes. during the past year weight has: increased > 10 lbs Assistive Devices: Walker and Wheelchair Physical Exam Physical Exam: GENERAL: This is a morbidly obese 56 year old male that does not appear in any acute distress. HEAD/FACE: Normocephalic and atraumatic. EYES: No drainage or conjunctival injection. ENT: Nose without bleeding or discharge. Oral mucosa moist. NECK: Full ROM without apparent pain. No swelling or masses noted. RESPIRATORY: Patient with unlabored breathing. No signs of respiratory distress. CHEST/AXILLA: Chest movement symmetrical. No deformities noted. ABDOMEN/GI: No distension BACK: Moves without difficulty SKIN: [employer], warm and dry. No rash noted. MS/EXTREMITY: No swelling, no deformities. Moving extremities appropriately. There is hyperpathia to minimal touch of both feet. Slight purple discoloration of the left fourth toe. NEURO: Alert and appears oriented. Speech is fluent. Cranial Nerves are grossly intact. PSYCH: Alert, pleasant, affect is calm
[2022-02-27 16:48] LABS: Partial Thromboplastin Ratio 1.4; Partial Thromboplastin Time 39.7 Seconds (21.0-31.0)
[2022-02-27 23:15] LABS: Partial Thromboplastin Ratio 1.5; Partial Thromboplastin Time 41.6 Seconds (21.0-31.0)
[2022-02-27] MEDS ORDERED: hydrALAZINE HCL 20 MG/ML VIAL IV PRN (23:38)
--- NOTE | 2022-02-27 23:38 | Hospitalist Progress Note ---
Date of Service February 27, 2022 Assessment & Plan (1) PVD (peripheral vascular disease): (2) Diabetic neuropathy: Plan: Present on admission from home with reports of left foot pain and left fourth toe pain and discoloration on the plantar aspect Duplex of LLE showed monophasic waveforms throughout the left lower extremity compatible with peripheral vascular disease without critical stenosis. CT abd/pelvis showedocclusion of the right internal iliac artery with distal reconstitution. Otherwise the great vessels are intact. CTA chest showed no evidence of pulmonary embolism. Within the limits of a nondedicated study. No acute aortic injury is seen. Cholesterol 225, HDL 22, Triglycerides 193 and LDL 164 Hospitalist team discussed case with Vascular surgery at [facility] Vascular surgery on board Plan to undergo aortogram with iliac intervention tomorrow Currently on IV heparin drip, ASA 81mg and statin Will plan to d/c heparin drip and transition to Plavix Pain management on board Pain control with as needed tramadol, oxycodone and gabapentin due to diabetic neuropathy Continue pulse check q4h NPO after midnight (3) T2DM (type 2 diabetes mellitus): Plan: Hgb A1c 7.6 01/2022 Lantus and NovoLog per protocol while hospitalized Continue monitor BS (4) HTN (hypertension): Plan: BP elevated Continue lisinopril Will consider to add hydralazine prn (5) Open wound of left thigh: Plan: History of large left thigh wound and abscess dating back to 12/2021. Recently admitted for management of infection and abscess of wound. Completed antibiotic course. Seems to be healing well, no signs of recurrent infection. Wound care nurse to follow during admission. (6) DVT prophylaxis: Plan: On IV heparin Disposition Will discharge once medically stable Pt refused to wear the tele monitor Admission and Anticipated Discharge Date Admission Date: February 24, 2022 Subjective Pt was seen and examined for follow up of left 4th toe discoloration Lying in bed with no acute distress Pt said that pain control with the current regiment Denies any chest pain, palpitation, dizziness and SOB Review of Systems Review of Systems: All systems reviewed & are unremarkable except as noted in Subjective Physical Exam Physical Exam: General- No acute distress Head- atraumatic Eyes- PERRL, EOMI, ENT- oropharynx clear Neck- supple, no JVD Lungs- clear to auscultation Heart- regular rhythm; no murmur Abdomen- normal bowel sounds, soft, nontender Extremities- +edema, +chronic b/l pain from neuropathy, +Left fourth toe with purplish discoloration noted on the plantar aspect Neuro- alert, oriented x 3; PERRL, EOMI; no facial palsy; no dysarthria Skin- warm & dry Results & Data Results & Data ([facility]) Vital Signs (Past 12 Hours) Vital Signs Temp Pulse Resp BP Pulse Ox O2 Del Method 02/27/22 23:08 37.2 C 86 20 164/89 H 94 Room Air 02/27/22 19:52 37.1 C 72 20 156/90 H 95 Room Air 02/27/22 19:39 Room Air 02/27/22 15:19 36.8 C 69 20 163/95 H 95
[2022-02-28] MEDS: traMADol HCL 50 MG TABLET PO PRN ×4 (05:19→22:50)
[2022-02-28] MEDS ORDERED: SODIUM CHLORIDE 0.9% 1000ML 1,000 ML IV SCH (06:00)
[2022-02-28 07:20] LABS: Partial Thromboplastin Ratio 1.7
[2022-02-28] MEDS: INSULIN ASPART PER UNIT SC SCH ×4 (08:14→20:41)
[2022-02-28] MEDS: ASPIRIN 81 MG ECTAB PO SCH (08:15)
[2022-02-28] MEDS: LANTUS PER UNIT CHARGE SQ SCH (08:16)
[2022-02-28] MEDS: lisinopril 40 MG TAB PO SCH (08:16)
[2022-02-28] MEDS: GABAPENTIN 300 MG CAP PO SCH ×3 (08:16→20:14)
[2022-02-28] MEDS: ATORVASTATIN 40 MG TAB PO SCH (08:16)
[2022-02-28] MEDS: HEPARIN SODIUM/DEXTROSE 25,000 UNITS/500 ML BAG IV SCH ×2 (08:19→18:02)
--- NOTE | 2022-02-28 10:13 | Hospitalist Progress Note ---
Date of Service February 28, 2022 Assessment & Plan (1) PVD (peripheral vascular disease): (2) Diabetic neuropathy: Plan: Present on admission from home with reports of left foot pain and left fourth toe pain and discoloration on the plantar aspect Duplex of LLE showed monophasic waveforms throughout the left lower extremity compatible with peripheral vascular disease without critical stenosis. CT abd/pelvis showedocclusion of the right internal iliac artery with distal reconstitution. Otherwise the great vessels are intact. CTA chest showed no evidence of pulmonary embolism. Within the limits of a nondedicated study. No acute aortic injury is seen. Cholesterol 225, HDL 22, Triglycerides 193 and LDL 164 Hospitalist team discussed case with Vascular surgery at [facility] [place] [place] Vascular surgery consulted - Plan to undergo aortogram with iliac intervention today (02/28) Currently on IV heparin drip, ASA 81mg and statin Will plan to d/c heparin drip and transition to Plavix Pain management on board Pain control with as needed tramadol, oxycodone and gabapentin due to diabetic neuropathy Continue pulse check q4h NPO for procedure (3) T2DM (type 2 diabetes mellitus): Plan: Hgb A1c 7.6 01/2022 Lantus and NovoLog per protocol while hospitalized Continue monitor BS (4) HTN (hypertension): Plan: BP elevated Continue lisinopril Will consider to add hydralazine prn (5) Open wound of left thigh: Plan: History of large left thigh wound and abscess dating back to 12/2021. Recently admitted for management of infection and abscess of wound. Completed antibiotic course. Seems to be healing well, no signs of recurrent infection. Wound care nurse to follow during admission. (6) DVT prophylaxis: Plan: On IV heparin Disposition Will discharge once medically stable Pt refused to wear the tele monitor Admission and Anticipated Discharge Date Admission Date: February 24, 2022 Subjective Pt was seen and examined for follow up of left 4th toe discoloration Lying in bed in no acute distress Denies any fever, chills, chest pain, palpitation, dizziness or shortnes of breath Reports some 4th toe pain Plan for vasc. procedure later today Review of Systems Review of Systems: All systems reviewed & are unremarkable except as noted in Subjective Physical Exam Physical Exam: General- No acute distress Head- atraumatic Eyes- PERRL, EOMI, ENT- oropharynx clear Neck- supple, no JVD Lungs- clear to auscultation Heart- regular rhythm; no murmur Abdomen- normal bowel sounds, soft, nontender Extremities- +Left fourth toe with purplish discoloration noted on the plantar aspect Neuro- alert, oriented x 3; PERRL, EOMI; no facial palsy; no dysarthria, moves extremities Skin- warm & dry Results & Data Results & Data ([facility]) Vital Signs (Past 12 Hours) Vital Signs Temp Pulse Resp BP Pulse Ox O2 Del Method 02/28/22 07:54 Room Air 02/28/22 07:45 36.4 C L 66 20 163/105 H 94 02/28/22 03:15 37.0 C 71 18 149/83 H 96 Room Air 02/27/22 23:08 37.2 C 86 20 164/89 H 94 Room Air Medications Administered Current Inpatient Medications Acetaminophen (Acetaminophen 325 Mg Tab) 650 mg PO Q4H PRN PRN Reason: pain/fever Stop: 03/26/22 20:14 Last Admin: 02/27/22 01:52 Dose: 650 mg Aspirin (Aspirin 81 Mg Ectab) 81 mg PO QAM PATSY Stop: 03/27/22 08:59 Last Admin: 02/28/22 08:15 Dose: 81 mg Atorvastatin Calcium (Atorvastatin 40 Mg Tab) 40 mg PO QAM PATSY Stop: 03/26/22 20:14 Last Admin: 02/28/22 08:16 Dose: 40 mg Dextrose (Dextrose 50% 50 Ml Syringe) 25 - 50 ml IV UD PRN; Protocol PRN Reason: Hypoglycemia Protocol Stop: 03/26/22 20:14 Gabapentin (Gabapentin 300 Mg Cap) 300 mg PO TID PATSY Stop: 03/29/22 09:14 Last Admin: 02/28/22 08:16 Dose: 300 mg Glucagon (Glucagon For Inj 1 Mg Vial) 1 mg SQ UD PRN; Protocol PRN Reason: Hypoglycemia Protocol Stop: 03/26/22 20:14 Glucose (Glucose 10 Tab/Tube) 4 - 8 tab PO UD PRN; Protocol PRN Reason: Hypoglycemia Treatment Stop: 03/26/22 20:14 Glucose (Glucose 40% Gel 15 Gm Tube) 15 - 30 gm PO UD PRN; Protocol PRN Reason: Hypoglycemia Protocol Stop: 03/26/22 20:14 Hydralazine HCl (Hydralazine Hcl 20 Mg/Ml Vial) 5 mg IV Q6H PRN PRN Reason: SBP above 165 Stop: 03/29/22 23:37 Heparin Sodium/Dextrose (Heparin Sodium/Dextrose) 25,000 units in 500 mls @ 56 mls/hr IV .Q8H56M [facility]; Protocol Stop: 03/26/22 21:29 Last Admin: 02/28/22 08:19 Dose: 2,800 units/hr, 56 mls/hr Sodium Chloride (Nss 1000ml) 1,000 mls @ 0 mls/hr IV .Q0M PATSY Stop: 03/28/22 05:44 Cefazolin Sodium (Ancef 3000mg) 72.5 mls @ 130 mls/hr IV PREOP [facility]; Protocol Stop: 03/01/22 05:59 Last Infusion: 02/28/22 05:52 Dose: Infused Sodium Chloride (Nss 1000ml) 1,000 mls @ 100 mls/hr IV .Q10H [facility] Stop: 02/28/22 15:59 Last Admin: 02/28/22 05:17 Dose: 100 mls/hr Insulin Aspart (Insulin Aspart Per Unit) 0 units SC ACHS [facility] Stop: 03/26/22 20:59 Last Admin: 02/28/22 08:14 Dose: Not Given Insulin Glargine (Lantus Per Unit Charge) 32 units SQ DAILY [facility] Stop: 03/27/22 08:59 Last Admin: 02/28/22 08:16 Dose: 20 units Lisinopril (Lisinopril 40 Mg Tab) 40 mg PO QAM [facility] Stop: 03/27/22 08:59 Last Admin: 02/28/22 08:16 Dose: 40 mg Lorazepam (Lorazepam 0.5 Mg Tab) 0.5 mg PO TID PRN PRN Reason: Anxiety Stop: 03/28/22 00:43 Last Admin: 02/26/22 01:06 Dose: 0.5 mg Miscellaneous (Carbohydrates For Hypoglycemia ) 15 - 30 gm PO UD PRN PRN Reason: Hypoglycemia Protocol Stop: 03/26/22 20:14 Oxycodone HCl (Oxycodone Hcl Ir 5 Mg Tab (Immediate Release)) 5 mg PO Q6H PRN PRN Reason: Moderate Pain Stop: 03/12/22 11:57 Last Admin: 02/27/22 03:52 Dose: 5 mg Tramadol HCl (Tramadol Hcl 50 Mg Tablet) 50 mg PO Q4H PRN PRN Reason: Mild Pain Stop: 03/26/22 20:14 Last Admin: 02/28/22 09:40 Dose: 50 mg
[2022-02-28] MEDS ORDERED: MIDAZOLAM HCL 1 MG/ML 2ML VIAL ONE ×2 (12:56→13:28)
[2022-02-28] MEDS ORDERED: LIDOCAINE 1% LOCAL 20 ML VIAL ONE (12:56)
[2022-02-28] MEDS ORDERED: fentaNYL citrate 100 MCG/2 ML VIAL ONE ×2 (12:56→13:28)
[2022-02-28] MEDS ORDERED: HEPARIN SOD (PORCINE) 1000 UNIT/ML ONE (12:56)
--- NOTE | 2022-02-28 12:56 | History & Physical Bridge Note ---
Date of Service February 28, 2022 History & Physical Bridge Note Patient for arteriography with possible intervention. I have discussed the risks options and benefits of the procedure with the patient. The patient understands the risks options and benefits and agrees to the procedure. I have examined the patient, reviewed the History & Physical and in the interval since the performance of the History & Physical I have noted the following changes of clinical significance: no changes noted
[2022-02-28] MEDS ORDERED: VISIPAQUE IV PRN (14:05)
--- NOTE | 2022-02-28 14:12 | Procedure Note ---
Angiogram Post Procedure Fluoroscopy Time (minutes): 0.3 Conscious Sedation Time (minutes): 40 Radiation (mGy): 373 Contrast: 59mL Post Operative Report Pre & Post Diagnosis Operation Date: 02/28/22 13:30 Pre-Op Diagnosis: Toe Wound with Ulceration Post-Op Diagnosis: Toe Wound with Ulceration I identified the patient and participated in the time-out.: Yes Procedure Operation Date: 02/28/22 13:30 Actual Procedures p Pelvic Arteriogram, Ultrasound Localization of Right Femoral Artery, Mechanical Closure of Right Femoral Artery, Moderate Sedation 1330-(Right) - Simon Weston MD Surgeon Simon Weston Receptionist Nurse Cony Stephens MD Estimated Blood Loss 0 Findings Consistent with Post-Op Diagnosis Specimens none Anesthesia Type RN Sedation Complications none Disposition Accompanied Patient To Recovery: No Disposition: Recovery Room Indications Lower extremity wounds Description of Procedure Patient was brought to the operating room. A surgical timeout was performed where the patient was identified, allergies were noted, and procedural side was identified. The patient's bilateral groins were prepped and draped in the usual sterile fashion after an Ioban was placed over his left thigh wound. The Ioban was prepped sterilely. Patient was monitored with EKG and pulse oximetry throughout the procedure. He was given 2 mg of Versed and 100 mcg of fentanyl for sedation during the entirety of the procedure. He had 10 mL of 1% lidocaine injected into the right groin for local anesthesia. A ultrasound was utilized to identify the right common femoral bifurcation. The artery was found to be patent with moderate amount of plaque. An 18-gauge needle was used to access the right common femoral artery under ultrasound guidance. A J-tip wire was inserted into the artery but could not be advanced easily without resistance therefore was withdrawn. Pulsatile bleeding was noted through the needle. A stiff angled Glidewire was then inserted into the needle and this was able to be passed easily into the aorta. An 11 blade to utilized to make a skin incision over the wire. A 5Fr sheath was then inserted over the stiff glide wire. A pigtail catheter was then advanced into the aorta. Power injector was utilized for pelvic angiograms. There was noted to be some stenosis of the left common iliac artery just below the bifurcation however the stenosis was noted to be well less than 50% of the luminal diameter. Different obliquities were utilized to verify that the stenosis was not more significant. The pigtail catheter was removed over the stiff angled glide wire. Then the wire was also removed. A star closure device was utilized to obtain hemostasis. Pressure was held and there were no signs of hematoma at the end of the case. The patient had DP signals at the end of the case. The patient was taken to the PACU for recovery. Dr. Weston was present and scrubbed for the entire procedure. I attest to the content of the Intraoperative Record and any orders documented therein. Any exceptions are noted below.
--- NOTE | 2022-02-28 14:33 | Post Operative Brief Note ---
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
--- NOTE | 2022-02-28 14:33 | Pre Anesthesia Assessment ---
Date of Service February 28, 2022 Pre Sedation Assessment Vital Signs Temp Pulse Pulse Resp BP Pulse Ox O2 Del Method 02/28/22 14:06 73 16 191/111 H 97 Room Air 02/28/22 14:05 74 16 194/125 H 97 Room Air 02/28/22 14:00 76 16 192/113 H 99 Oxymask 02/28/22 13:55 70 16 181/117 H 99 Oxymask 02/28/22 13:50 72 16 180/108 H 99 Oxymask 02/28/22 13:45 75 16 173/109 H 99 Oxymask 02/28/22 13:40 71 16 179/104 H 97 Oxymask 02/28/22 11:00 Room Air 02/28/22 13:35 74 16 184/102 H 97 Oxymask 02/28/22 13:30 65 16 180/100 H 97 Oxymask 02/28/22 13:25 63 18 182/114 H 99 Oxymask 02/28/22 13:10 36.8 C 68 16 172/95 H 96 Room Air 02/28/22 11:08 36.5 C 66 16 158/91 H 96 Room Air 02/28/22 07:54 Room Air 02/28/22 07:45 36.4 C L 66 20 163/105 H 94 02/28/22 03:15 37.0 C 71 18 149/83 H 96 Room Air 02/27/22 23:08 37.2 C 86 20 164/89 H 94 Room Air 02/27/22 19:52 37.1 C 72 20 156/90 H 95 Room Air 02/27/22 19:39 Room Air 02/27/22 15:19 36.8 C 69 20 163/95 H 95 O2 Flow Rate 02/28/22 14:06 0 02/28/22 14:05 0 02/28/22 14:00 4 02/28/22 13:55 4 02/28/22 13:50 4 02/28/22 13:45 4 02/28/22 13:40 4 02/28/22 11:00 02/28/22 13:35 4 02/28/22 13:30 4 02/28/22 13:25 4 02/28/22 13:10 02/28/22 11:08 02/28/22 07:54 02/28/22 07:45 11/09/22 03:15 02/27/22 23:08 02/27/22 19:52 02/27/22 19:39 02/27/22 15:19 Cardiovascular RRR, no murmur, no edema Respiratory normal respiratory effort, lungs clear to auscultation Pre-Sedation Airway Assessment Smoking Status: Current every day smoker Hx Sleep Apnea: No Short, Thick Neck: Yes Thyromental Distance: > or= 3.5 Finger Breadths Oral Cavity: + WNL Mallampati Class: II ASA: ASA3 NPO Status Date of Last Intake of Fluids: 02/28/22 Time of Last Intake of Fluids: 08:00 Last Oral Intake of Fluids Comment: sip with meds Date of Last Intake of Solid Food: 02/27/22 Time of Last Intake of Solid Foods: 18:00 Procedure Planning Contraindications for Sedation: none Current Medications Reviewed: Yes Notes The planned sedation has been discussed with the patient. Informed Consent was obtained. I have identified the patient, determined the appropriateness of sedation and have assessed the patient immediately prior to the procedure. All medicine(s) and interventions are by my order.
--- NOTE | 2022-02-28 14:34 | Post Anesthesia Assessment ---
Date of Service February 28, 2022 Post Sedation Assessment Vital Signs Temp Pulse Pulse Resp BP Pulse Ox O2 Del Method 02/28/22 14:06 73 16 191/111 H 97 Room Air 02/28/22 14:05 74 16 194/125 H 97 Room Air 02/28/22 14:00 76 16 192/113 H 99 Oxymask 02/28/22 13:55 70 16 181/117 H 99 Oxymask 02/28/22 13:50 72 16 180/108 H 99 Oxymask 02/28/22 13:45 75 16 173/109 H 99 Oxymask 02/28/22 13:40 71 16 179/104 H 97 Oxymask 02/28/22 11:00 Room Air 02/28/22 13:35 74 16 184/102 H 97 Oxymask 02/28/22 13:30 65 16 180/100 H 97 Oxymask 02/28/22 13:25 63 18 182/114 H 99 Oxymask 02/28/22 13:10 36.8 C 68 16 172/95 H 96 Room Air 02/28/22 11:08 36.5 C 66 16 158/91 H 96 Room Air 02/28/22 07:54 Room Air 02/28/22 07:45 36.4 C L 66 20 163/105 H 94 02/28/22 03:15 37.0 C 71 18 149/83 H 96 Room Air 02/27/22 23:08 37.2 C 86 20 164/89 H 94 Room Air 02/27/22 19:52 37.1 C 72 20 156/90 H 95 Room Air 02/27/22 19:39 Room Air 02/27/22 15:19 36.8 C 69 20 163/95 H 95 O2 Flow Rate 02/28/22 14:06 0 02/28/22 14:05 0 02/28/22 14:00 4 02/28/22 13:55 4 02/28/22 13:50 4 02/28/22 13:45 4 02/28/22 13:40 4 02/28/22 11:00 02/28/22 13:35 4 02/28/22 13:30 4 02/28/22 13:25 4 02/28/22 13:10 02/28/22 11:08 02/28/22 07:54 02/28/22 07:45 11/09/22 03:15 02/27/22 23:08 02/27/22 19:52 02/27/22 19:39 02/27/22 15:19 Recovery Score Activity: Moves 4 extremities Respiration: Deep Breath/Cough Circulation: +/-20% PreAnes Value Consciousness: Fully Awake Oxygen Saturation: > 92% On Room Air Post Anesthesia Score: 10 Discharge Sedation Level of Care: Fast Track Phase II Post Sedation Plan On clinical assessment, the patient appears to have tolerated the sedation without complications. Patient is recovering as anticipated. Patient will continue to be monitored by nursing and may be discharged when sedation discharge criteria are met per below protocol. Upon Completions of procedure up to 15 minutes continue every 5 minute vital signs and the P.A.R. score; then discharge to a Phase I or Fast Track to Phase II per the following guidelines: * Discharge Patient to appropriate Phase II area if PAR is 8 or greater or return to pre- procedure baseline. The post - procedure orders will be as directed. * If PAR score is less than 8 or not return to pre-procedure baseline then patient will follow Phase I monitoring till PAR is reached for Phase II. The Phase I may be done in procedure room or may call to secure a Phase I area. * If naloxone or flumazenil are used for reversal, hold in Phase I for continued monitoring from when last reversal dose was given for a minimum of 60 minutes or longer pending the nurse and/or physician discretion of patient condition before discharge to Phase II. Please call the Sedation Physician to re-evaluate and complete post-note for discharge to Phase II area. Do NOT discharge from procedure sedation or Phase 1 until post- sedation evaluation note is complete by procedure /sedation MD Sedation Discharge Instructions to be given to the patient at discharge to home.
--- NOTE | 2022-02-28 14:38 | Communication Note ---
Date of Service: February 28, [address] him on oral anticoagulant. No intervention needed. Only minimal iliac disease on angio
[2022-02-28] MEDS ORDERED: WARFARIN SOD 5 MG TAB PO SCH (16:00)
[2022-02-28] MEDS: LORazepam 0.5 MG TAB PO PRN (16:39)
[2022-02-28] MEDS ORDERED: HEPARIN SODIUM/DEXTROSE 25,000 UNITS/500 ML BAG IV SCH (17:45)
[2022-02-28] MEDS: Heparin IV Adult Wt-Based Standard *NO* Bolus Protocol IV SCH ×4 (18:00→18:13)
[2022-02-28] MEDS: ENOXAPARIN 150 MG/ML SYR SQ SCH (23:10)
[2022-03-01 07:35] LABS: Hematocrit (blood only) 40.5 % (40.1-51.0); Hemoglobin 13.6 g/dl (14.0-18.0); Mean Corpuscular Hemoglobin 30.8 pg (25.0-34.0); Mean Corpuscular Hgb Conc 33.6 g/dL (32.0-36.0); Mean Corpuscular Volume 91.6 fL (80.0-100.0); Mean Platelet Volume 12.5 fL (9.4-12.4); Platelet Count 216 K/uL (130-400); RDW Coefficient of Variation 13.9 % (11.5-14.5); RDW Standard Deviation 47.8 fL (36.4-46.3); Red Blood Count 4.42 M/uL (4.63-6.08); White Blood Count 7.39 K/ul (4.8-10.8)
[2022-03-01 07:47] LABS: Partial Thromboplastin Ratio 1.1; Partial Thromboplastin Time 30.8 Seconds (21.0-31.0)
[2022-03-01 07:59] LABS: BUN Creatinine Ratio 22.8 (10-20); Calcium 9.3 mg/dl (8.5-10.1); Creatinine Clr Calc Pharmacy 209.6 ml/min; Est GFR (African American) 132.1 ml/min; Magnesium 1.5 mg/dl (1.7-2.4); Phosphorus 3.9 mg/dl (2.5-4.9); Potassium 3.6 mmol/L (3.5-5.1)
[2022-03-01] MEDS: traMADol HCL 50 MG TABLET PO PRN (08:00)
[2022-03-01] MEDS: ASPIRIN 81 MG ECTAB PO SCH (08:02)
[2022-03-01] MEDS: ATORVASTATIN 40 MG TAB PO SCH (08:02)
[2022-03-01] MEDS: GABAPENTIN 300 MG CAP PO SCH ×2 (08:02→13:00)
[2022-03-01] MEDS: lisinopril 40 MG TAB PO SCH (08:03)
--- NOTE | 2022-03-01 08:22 | Hospitalist Progress Note ---
Date of Service March 01, 2022 Assessment & Plan (1) PVD (peripheral vascular disease): (2) Diabetic neuropathy: Plan: Iliac Stenosis with Toe Ulceration Present on admission from home with reports of left foot pain and left fourth toe pain and discoloration on the plantar aspect Duplex of LLE showed monophasic waveforms throughout the left lower extremity compatible with peripheral vascular disease without critical stenosis. CT abd/pelvis showedocclusion of the right internal iliac artery with distal reconstitution. Otherwise the great vessels are intact. CTA chest showed no evidence of pulmonary embolism. Within the limits of a nondedicated study. No acute aortic injury is seen. Cholesterol 225, HDL 22, Triglycerides 193 and LDL 164 Hospitalist team discussed case with [place] [facility] [place] consulted - Pt underwent arteriogram with Dr. Weston (02/28) Per Dr. Weston - no intervention was needed, recommends oral anticoagulant, ASA not needed. Only minimal disease on angio Pt started on coumadin and lovenox bridge Pain management also consulted Pain control with as needed tramadol, oxycodone and gabapentin due to diabetic neuropathy (3) T2DM (type 2 diabetes mellitus): Plan: Hgb A1c 7.6 01/2022 Lantus and NovoLog per protocol while hospitalized Continue monitor BS (4) HTN (hypertension): Plan: BP elevated Continue lisinopril hydralazine prn (5) Open wound of left thigh: Plan: History of large left thigh wound and abscess dating back to 12/2021. Recently admitted for management of infection and abscess of wound. Completed antibiotic course. Seems to be healing well, no signs of recurrent infection. Wound care nurse to follow during admission. (6) DVT prophylaxis: Plan: lovenox Disposition: plan to DC home Admission and Anticipated Discharge Date Admission Date: February 24, 2022 Subjective Pt was seen and examined for follow up of left 4th toe discoloration Lying in bed in no acute distress Denies any fever, chills, chest pain, palpitation, dizziness or shortness of breath Reports some 4th toe pain Discussed w/ vascular surg. - and started anticoagulation. Review of Systems Review of Systems: All systems reviewed & are unremarkable except as noted in Subjective Physical Exam Physical Exam: General- No acute distress Head- atraumatic Eyes- PERRL, EOMI, ENT- oropharynx clear Neck- supple, no JVD Lungs- clear to auscultation Heart- regular rhythm; no murmur Abdomen- normal bowel sounds, soft, nontender Extremities- +Left fourth toe with purplish discoloration noted on the plantar aspect Neuro- alert, oriented x 3; PERRL, EOMI; no facial palsy; no dysarthria, moves extremities Skin- warm & dry Results & Data Results & Data ([facility]) Vital Signs (Past 12 Hours) Vital Signs Temp Pulse Resp BP Pulse Ox O2 Del Method 03/01/22 06:46 36.5 C 62 20 160/83 H 95 Room Air 03/01/22 04:00 36.5 C 62 18 158/82 H 93 Room Air 02/28/22 23:40 36.7 C 71 20 144/82 H 94 Room Air 02/28/22 22:02 Room Air 02/28/22 20:46 36.7 C 72 18 160/79 H 94 Room Air Laboratory Results 03/01/22 03/01/22 03/01/22 Range/Units 07:45 05:51 05:51 WBC 7.39 (4.8-10.8) K/ul RBC 4.42 L (4.63-6.08) M/uL Hgb 13.6 L (14.0-18.0) g/dl Hct 40.5 (40.1-51.0) % MCV 91.6 (80.0-100.0) fL MCH 30.8 (25.0-34.0) pg MCHC 33.6 (32.0-36.0) g/dL RDW Std Deviation 47.8 H (36.4-46.3) fL RDW Coeff of Mercedes 13.9 (11.5-14.5) % Plt Count 216 (130-400) K/uL MPV 12.5 H (9.4-12.4) fL APTT (21.0-31.0) Seconds PTT Ratio Sodium 135 L (136-145) mmol/L Potassium 3.6 (3.5-5.1) mmol/L Chloride 103 (98-107) mmol/L Carbon Dioxide 26 (21-32) mmol/L Anion Gap 6 (3-11) BUN 13 (6-23) mg/dl Creatinine 0.57 L (0.6-1.4) mg/dl Est Cr Clr Drug Dosing 209.6 ml/min Est GFR ( Amer) 132.1 ml/min Est GFR (Non-Af Amer) 114.0 ml/min BUN/Creatinine Ratio 22.8 H (10-20) Glucose 164 H (70-99(Fasting)) mg/dl POC Glucose 170 H (70-99) mg/dl Calcium 9.3 (8.5-10.1) mg/dl Phosphorus 3.9 (2.5-4.9) mg/dl Magnesium 1.5 L (1.7-2.4) mg/dl 03/01/22 02/28/22 02/28/22 Range/Units 05:51 20:16 16:30 WBC (4.8-10.8) K/ul RBC (4.63-6.08) M/uL Hgb (14.0-18.0) g/dl Hct (40.1-51.0) % MCV (80.0-100.0) fL MCH (25.0-34.0) pg MCHC (32.0-36.0) g/dL RDW Std Deviation (36.4-46.3) fL RDW Coeff of Mercedes (11.5-14.5) % Plt Count (130-400) K/uL MPV (9.4-12.4) fL APTT 30.8 (21.0-31.0) Seconds PTT Ratio 1.1 Sodium (136-145) mmol/L Potassium (3.5-5.1) mmol/L Chloride (98-107) mmol/L Carbon Dioxide (21-32) mmol/L Anion Gap (3-11) BUN (6-23) mg/dl Creatinine (0.6-1.4) mg/dl Est Cr Clr Drug Dosing ml/min Est GFR ( Amer) ml/min Est GFR (Non-Af Amer) ml/min BUN/Creatinine Ratio (10-20) Glucose (70-99(Fasting)) mg/dl POC Glucose 142 H 161 H (70-99) mg/dl Calcium (8.5-10.1) mg/dl Phosphorus (2.5-4.9) mg/dl Magnesium (1.7-2.4) mg/dl 02/28/22 Range/Units 11:25 WBC (4.8-10.8) K/ul RBC (4.63-6.08) M/uL Hgb (14.0-18.0) g/dl Hct (40.1-51.0) % MCV (80.0-100.0) fL MCH (25.0-34.0) pg MCHC (32.0-36.0) g/dL RDW Std Deviation (36.4-46.3) fL RDW Coeff of Mercedes (11.5-14.5) % Plt Count (130-400) K/uL MPV (9.4-12.4) fL APTT (21.0-31.0) Seconds PTT Ratio Sodium (136-145) mmol/L Potassium (3.5-5.1) mmol/L Chloride (98-107) mmol/L Carbon Dioxide (21-32) mmol/L Anion Gap (3-11) BUN (6-23) mg/dl Creatinine (0.6-1.4) mg/dl Est Cr Clr Drug Dosing ml/min Est GFR ( Amer) ml/min Est GFR (Non-Af Amer) ml/min BUN/Creatinine Ratio (10-20) Glucose (70-99(Fasting)) mg/dl POC Glucose 168 H (70-99) mg/dl Calcium (8.5-10.1) mg/dl Phosphorus (2.5-4.9) mg/dl Magnesium (1.7-2.4) mg/dl Medications Administered Current Inpatient Medications Acetaminophen (Acetaminophen 325 Mg Tab) 650 mg PO Q4H PRN PRN Reason: pain/fever Stop: 03/26/22 20:14 Last Admin: 02/27/22 01:52 Dose: 650 mg Aspirin (Aspirin 81 Mg Ectab) [facility] [place] Stop: 03/27/22 08:59 Last Admin: 03/01/22 08:02 Dose: 81 mg Atorvastatin Calcium (Atorvastatin 40 Mg Tab) 40 mg PO [facility] Stop: 03/26/22 20:14 Last Admin: 03/01/22 08:02 Dose: 40 mg Dextrose (Dextrose 50% 50 Ml Syringe) 25 - 50 ml IV UD PRN; Protocol PRN Reason: Hypoglycemia Protocol Stop: 03/26/22 20:14 Enoxaparin Sodium (Enoxaparin 150 Mg/Ml Syr) 150 mg SQ Q12H [facility] Stop: 03/30/22 22:59 Last Admin: 02/28/22 23:10 Dose: 150 mg Gabapentin (Gabapentin 300 Mg Cap) 300 mg PO TID PATSY Stop: 03/29/22 09:14 Last Admin: 03/01/22 08:02 Dose: 300 mg Glucagon (Glucagon For Inj 1 Mg Vial) 1 mg SQ UD PRN; Protocol PRN Reason: Hypoglycemia Protocol Stop: 03/26/22 20:14 Glucose (Glucose 10 Tab/Tube) 4 - 8 tab PO UD PRN; Protocol PRN Reason: Hypoglycemia Treatment Stop: 03/26/22 20:14 Glucose (Glucose 40% Gel 15 Gm Tube) 15 - 30 gm PO UD PRN; Protocol PRN Reason: Hypoglycemia Protocol Stop: 03/26/22 20:14 Hydralazine HCl (Hydralazine Hcl 20 Mg/Ml Vial) 5 mg IV Q6H PRN PRN Reason: SBP above 165 Stop: 03/29/22 23:37 Sodium Chloride (Nss 1000ml) 1,000 mls @ 0 mls/hr IV .Q0M PATSY Stop: 03/28/22 05:44 Magnesium Sulfate/Dextrose (Magnesium Sulfate / D5w) 1 gm in 100 mls @ 50 mls/hr IV ONE ONE Stop: 03/01/22 10:29 Insulin Aspart (Insulin Aspart Per Unit) 0 units SC ACHS [facility] Stop: 03/26/22 20:59 Last Admin: 03/01/22 08:31 Dose: 8 units Insulin Glargine (Lantus Per Unit Charge) 32 units SQ DAILY PATSY Stop: 03/27/22 08:59 Last Admin: 03/01/22 08:32 Dose: 32 units Iodixanol (Visipaque) 59 ml IV UD PRN PRN Reason: Interaction Checking Stop: 03/04/22 14:04 Last Admin: 02/28/22 14:06 Dose: 59 ml Lisinopril (Lisinopril 40 Mg Tab) 40 mg PO QAM [facility] Stop: 03/27/22 08:59 Last Admin: 03/01/22 08:03 Dose: 40 mg Lorazepam (Lorazepam 0.5 Mg Tab) 0.5 mg PO TID PRN PRN Reason: Anxiety Stop: 03/28/22 00:43 Last Admin: 02/28/22 16:39 Dose: 0.5 mg Magnesium Oxide (Magnesium Oxide 400 Mg Tab) 400 mg PO BID [facility] Stop: 03/31/22 08:59 Miscellaneous (Carbohydrates For Hypoglycemia ) 15 - 30 gm PO UD PRN PRN Reason: Hypoglycemia Protocol Stop: 03/26/22 20:14 Oxycodone HCl (Oxycodone Hcl Ir 5 Mg Tab (Immediate Release)) 5 mg PO Q6H PRN PRN Reason: Moderate Pain Stop: 03/12/22 11:57 Last Admin: 02/27/22 03:52 Dose: 5 mg Tramadol HCl (Tramadol Hcl 50 Mg Tablet) 50 mg PO Q4H PRN PRN Reason: Mild Pain Stop: 03/26/22 20:14 Last Admin: 03/01/22 08:00 Dose: 50 mg Warfarin Sodium (Warfarin Sod 5 Mg Tab) 5 mg PO DAILY@1600 [facility] Stop: 03/30/22 15:59 Last Admin: 02/28/22 16:39 Dose: 5 mg
[2022-03-01] MEDS ORDERED: POTASSIUM CHLORIDE CRTAB 20 MEQ TABCR PO STA (08:28)
[2022-03-01] MEDS ORDERED: MAGNESIUM SULFATE / D5W 1 GM/100 ML BAG IV ONE (08:30)
[2022-03-01] MEDS: INSULIN ASPART PER UNIT SC SCH ×2 (08:31→12:39)
[2022-03-01] MEDS: LANTUS PER UNIT CHARGE SQ SCH (08:32)
[2022-03-01] MEDS ORDERED: MAGNESIUM OXIDE 400 MG TAB PO SCH (09:00)
[2022-03-01] MEDS: ENOXAPARIN 150 MG/ML SYR SQ SCH (11:32)
--- NOTE | 2022-03-01 11:41 | Discharge Summary ---
Date of Service March 01, 2022 Admission HPI Per Admitting Provider 56-year-old male with PMH DM type II on insulin, MEETA, PVD, HTN, left foot drop, and other problems listed below who presents to the ED for evaluation of left foot pain and left fourth toe discoloration. Patient with history of large left thigh wound with associated abscess dating back to December 2021. Patient recently admitted to [facility] 01/31 through 02/06 for recurring left thigh wound and at abscess. Cultures grew 2 strains of Pseudomonas and group B beta strep. Patient was discharged on p.o. Cipro and p.o. Flagyl which he completed the courses. Patient was seen by PCP on 02/16 for hospital follow-up and was placed on Keflex, patient is unsure of reason. Patient reports he was taking Keflex until yesterday however self stopped due to development of diarrhea. Patient has been following with outpatient wound clinic as well as home health. He states that about 1 week ago, he developed acute left foot and left fourth toe pain. Patient describes the pain as severe and as a "hot poker". Patient reports pain with bedsheet on top. Patient was seen at the wound clinic on 02/22 and noted to have a discolored left fourth toe. Wound clinic notified patient's PCP of discolored toe and elevated BP. PCP ordered ASA, Plavix, and increase lisinopril dose. Patient reports he has not started aspirin or Plavix. He states that his left thigh wound is healing well. Dressing was changed by home health this morning. Patient has some chronic redness and discoloration to his bilateral lower extremities. Patient states the redness is slightly worse than baseline. Patient denies fevers and chills. No chest pain or shortness of breath. Denies lightheadedness, dizziness, diaphoresis, syncopal events. No abdominal pain, nausea, vomiting. Denies urinary symptoms. In the ED, arterial duplex is compatible with peripheral vascular disease without critical stenosis. Admission Exam Per Admitting Provider Constitutional: WD/WN, vitals as above + obese Eyes: PERRL, conjunctivae normal, anicteric sclerae ENMT: external ear and nose normal, oropharynx normal Respiratory: normal respiratory effort, lungs clear to auscultation Cardiovascular: Rate/Rhythm: regular rate and regular rhythm Vessels: + abnormal peripheral pulses (Pedal pulses very diminished) Extremities: + edema (+2 edema BLE) Gastrointestinal (Abdomen): normal bowel sounds, soft, nontender, no hepatosplenomegaly Musculoskeletal: no cyanosis or clubbing, extremities motor strength 5/5 Skin: no rashes, warm and dry Dressing in place to left anterior thigh, patient declined removal --no significant surrounding erythema or drainage noted Dry scaly skin with erythema and chronic venous changes noted BLE Left fourth toe with erythema and purplish discoloration noted on the plantar aspect Significant pain with minimal touch to the left foot Neurologic: PERRL, EOMI, accommodation nl, no face palsy, no dysarthria Psychiatric: A+Ox3, euthymic affect Principal Diagnosis Iliac Stenosis with Toe Ulceration Discharge Exam General- No acute distress Head- atraumatic Eyes- PERRL, EOMI, ENT- oropharynx clear Neck- supple, no JVD Lungs- clear to auscultation Heart- regular rhythm; no murmur Abdomen- normal bowel sounds, soft, nontender Extremities- +Left fourth toe with purplish discoloration noted on the plantar aspect Neuro- alert, oriented x 3; PERRL, EOMI; no facial palsy; no dysarthria, moves extremities Skin- warm & dry Discharge Data Allergies Allergy/AdvReac Type Severity Reaction Status Date / Time metformin AdvReac Severe SEVERE Verified 02/22/22 13:33 DIARRHEA Consultations 02/24/22 17:15 ED Decision to Admit Stat 02/24/22 20:15 Consult Vascular Surgery Routine 02/27/22 01:13 Consult Pain Management Routine Procedures Performed Operation Date: 02/28/22 13:30 Actual Procedures p Pelvic Arteriogram, Ultrasound Localization of Right Femoral Artery, Me chanical Closure of Right Femoral Artery, Moderate Sedation [id number](Right) - Simon Weston MD Ordered Studies 02/24/22 14:13 US arterial duplex LE LT Stat 02/24/22 19:36 CT angio abdomen pelvis w con Stat FINDINGS: Lower chest: For findings above the diaphragm, please see CT chest performed same day. Liver: Unremarkable. No focal lesions are seen. Gallbladder and biliary tree: Cholelithiasis is seen without evidence of cholecystitis. No intra- or extrahepatic biliary ductal dilation. Pancreas: Unremarkable, no focal lesions. Spleen: Unremarkable. Adrenals: Thickening of the bilateral adrenal glands is seen. Kidneys and ureters: Unremarkable. Bladder: Diffuse homogeneous wall thickening is seen. Reproductive organs: Unremarkable. Bowel: The appendix is normal. There is fat stranding surrounding multiple loops of small bowel in the left lower quadrant. Lymph nodes Retroperitoneal: Unremarkable. Pelvic: Unremarkable. Mesenteric: Unremarkable. Peritoneum: Normal. Abdominal wall: Injection granuloma is seen in the right lower quadrant. Bones: Degenerative changes in the visualized spine. CT angiogram: The abdominal aortic contours appear intact without evidence of aneurysmal dilatation and/or dissection. No significant atherosclerosis is seen. The origins of the celiac axis, superior mesenteric, inferior mesenteric and bilateral renal arteries are patent. There is occlusion of the right internal iliac artery with distal reconstitution. IMPRESSION: 1. There is occlusion of the right internal iliac artery with distal reconstitution. Otherwise the great vessels are intact. 2. Vascular prominence and fat stranding about loops of small bowel may represent enteritis. 3. Bladder wall thickening is noted, correlation with urinalysis is recommended to exclude cystitis. CT angio chest w con Stat FINDINGS: Lungs and pleura: Normal. There is a 9 mm triangular nodule in the right middle lobe likely representing an intraparenchymal lymph node. Heart and pericardium: Heart size is normal. No pericardial effusion. Vessels: The pulmonary trunk measures 36 mm in diameter. No evidence of large or central pulmonary embolus within the limits of a nondedicated exam. There is no acute aortic injury. Mediastinum and mukesh: Subcentimeter lymph nodes are seen. Chest wall and lower neck: Unremarkable. Abdomen: For findings below the diaphragm, please refer to CT of the abdomen dated the same. Bones: Unremarkable. IMPRESSION: No evidence of pulmonary embolism. Within the limits of a nondedicated study. No acute aortic injury is seen. 02/28/22 12:55 EV angio LE LT Routine US EV guide vascular access Routine Hospital Course (1) PVD (peripheral vascular disease): (2) Diabetic neuropathy: Iliac Stenosis with Toe Ulceration Present on admission from home with reports of left foot pain and left fourth toe pain and discoloration on the plantar aspect Duplex of LLE showed monophasic waveforms throughout the left lower extremity compatible with peripheral vascular disease without critical stenosis. CT abd/pelvis showedocclusion of the right internal iliac artery with distal reconstitution. Otherwise the great vessels are intact. CTA chest showed no evidence of pulmonary embolism. Within the limits of a nondedicated study. No acute aortic injury is seen. Cholesterol 225, HDL 22, Triglycerides 193 and LDL 164 Hospitalist team discussed case with [place] [facility] consulted - Pt underwent arteriogram with Dr. Weston (02/28) Per Dr. Weston - no intervention was needed, recommends oral anticoagulant, ASA not needed. Only minimal disease on angio Pt started on coumadin and lovenox bridge Pain management also consulted Pain control with as needed tramadol, oxycodone and gabapentin due to diabetic neuropathy (3) T2DM (type 2 diabetes mellitus): Hgb A1c 7.6 01/2022 Lantus and NovoLog per protocol while hospitalized Continue monitor BS (4) HTN (hypertension): BP elevated Continue lisinopril hydralazine prn (5) Open wound of left thigh: History of large left thigh wound and abscess dating back to 12/2021. Recently admitted for management of infection and abscess of wound. Completed antibiotic course. Seems to be healing well, no signs of recurrent infection. Wound care nurse to follow during admission. (6) DVT prophylaxis: lovenox Disposition: plan to DC home Total Time Total Time Spent Total Time Spent (In Minutes): 40 Discharge Plan Discharge Items Patient Disposition: Home - Home Health Services Reason For Visit: LEFT 4TH TOE PAIN/DISCOLORATION Discharge Diagnosis: Iliac Stenosis with Toe Ulceration Activity: Per Instructions section Non-emergency contact: Primary Care Provider Call non-emergency contact if: you have any medication questions and your s ymptoms worsen Follow-up/Referrals: [facility] ([facility] [Other] (The [facility] will call you with further instructions regarding your lovenox/coumadin dosage.) Julio César Pulliam DO [Primary Care Provider] - (Date & Time 03/05/2022 12:00 PM Provider Julio César Pulliam DO Department Family Practice [facility] ) Diet: Carb Consistent or DM2 and Heart Healthy Addtl Attending Provider Instructions: Follow-up with your primary care doctor within a week, the appointment was scheduled for you for 03/05/2022. It was recommended by your vascular surgeon to continue with anticoagulation (blood thinner). You were started on Coumadin. Take 5 mg daily until further instructions from anticoagulation clinic are given to you. You will also need to use Lovenox 150 mg injection twice a day for next 5 days. For pain, you were started on gabapentin 300 mg 3 times a day. You can also take tramadol 50 mg every 4 hours as needed. For more severe pain, you can take oxycodone 5 mg every 8 hours as needed. Do not take tramadol and oxycodone together. Addtl Hris Manager Provider Instructions: For home health : Patient will need to check INR over the weekend or on Saturday. Please send results to PCP/ [facility] anticoagulation clinic. Pending Studies at Discharge: No Stand-Alone Forms: My [facility], Smoking Cessation Medications and DC Order Prescriptions: New enoxaparin [Lovenox] 150 mg/mL Syringe 150 mg subcut Q12H 5 Days Qty: 10 0RF warfarin 5 mg Tablet 5 mg PO DAILY 30 Days Qty: 30 0RF magnesium oxide 400 mg (241.3 mg magnesium) Tablet 400 mg PO DAILY 10 Days Qty: 10 0RF atorvastatin 40 mg Tablet 40 mg PO QAM 30 Days Qty: 30 0RF gabapentin 300 mg Capsule 300 mg PO TID 30 Days Qty: 90 0RF tramadol 50 mg Tablet 50 mg PO Q4H PRN (Reason: pain) 5 Days Qty: 20 0RF oxycodone 5 mg Tablet 5 mg PO Q8H PRN (Reason: pain) Qty: 14 0RF Continued insulin glargine [Lantus Solostar U-100 Insulin] 100 unit/mL (3 mL) insulin pen 40 unit subcut QAM Qty: 15 0RF insulin aspart U-100 [Novolog Flexpen U-100 Insulin] 100 unit/mL (3 mL) insulin pen 1 sliding scale dose subcut USEASDIRECTD Qty: 15 0RF Rx Instructions: 6 units for low Carbohydrate and 10 units for High carbohydrate meals.Additional injection as follows: Blood sugar 150-174 mg/dL: 1 unit Blood sugar 175-199 mg/dL: 2 units Blood sugar 200-224 mg/dL: 3 units Blood sugar 225-249 mg/dL: 4 units Blood sugar 250-274 mg/dL: 5 units Blood sugar 275-299 mg/dL: 6 units Blood sugar 300-324 mg/dL: 7 units Blood sugar 325-349 mg/dL: 8 units Blood sugar 350 mg/dL or greater: 9 units (DME) blood-glucose meter [OneCloud Cruiseruch Ultra2 Meter] Misc See Rx Instructions .Route Qty: 1 0RF Rx Instructions: As directed (DME) OneTouch Ultra Test Strip See Rx Instructions .Route Qty: 100 0RF Rx Instructions: 4 times a day Lactobacillus acidophilus 1 billion cell tablet 25 mmu cells PO BID Qty: 30 0RF lisinopril 20 mg tablet 40 mg PO QAM Discharge Orders: Discharge Order (Routine); Ordered 03/01/22 Ordered By: Prince Martin Admission Data Admit Date/Time: 02/24/22 18:26 Attending Provider: Prince Martin Admit Provider: Tanesha Trevino Primary Care Provider: Julio César Pulliam Other Providers: [facility] ; Odette Aparicio ; Tanesha Trevino ; Simon Weston ; Alize Nevarez
[2022-03-01] MEDS: oxyCODONE HCL IR 5 MG TAB (IMMEDIATE RELEASE) PO PRN (12:59)
== END 2022-03-01 14:45 | disposition home health service (06) | DRG 300 ==
LOC: ED 13:41 → SUATTDRO 18:26 → 3E 18:26 → 2N 21:13

== ENCOUNTER 2022-06-16 15:17 | Inpatient (IN) ==
--- NOTE | 2022-06-16 16:21 | Emergency Department Note ---
Impression & Plan Cellulitis, PVD (peripheral vascular disease), Hypoglycemia, Bilateral leg pain, Neuropathy ED Provider Note NAME: FABY FRENCH AGE: 56 SEX: M : 1965 ARRIVES VIA: Walk-In INFORMANT: Patient, ED PROVIDER(S): Tom Farias MD CHIEF COMPLAINT: Cellulitis MEDICAL DECISION MAKING: Patient presents with a concern for not improving cellulitis over the right lower extremity. The patient does have a known history of PAD blood clots necrotizing fasciitis and heart problems. IV was established blood work was obtained including blood cultures and a lactate. The patient did have bilateral arterial Dopplers of the lower e xtremities the patient does have worsening pain and does admit to worsening discoloration especially of the left lower extremity compared to the right. The patient does have a known history of PAD. Patient also has significant neuropathy. Blood work is a white count of 11.6. Hemoglobin 12.4. Platelet count is unremarkable. Patient is anticoagulated with an INR 3.2. Kidney function is unremarkable. BSG of 60 and the patient was given some juice. Repeat did show 68 and 94. Mild hypercalcemia 10.4. CRP is mildly elevated. Urinalysis with no evidence of obvious infection. COVID-negative. Patient's bilateral duplex shows moderate to extensive plaque within the bilateral lower extremities there is some significant stenosis in the right mid superficial femoral artery occlusion versus trace flow within the distal right superficial femoral artery dampened monophasic flow within the right calf vessels. Patient is already on anticoagulant medication the patient does feel well perfused on that side. The patient does have biphasic triphasic waveforms within the left lower extremity and flows improved within the left calf muscles since ultrasound from February. I did speak with on-call hospitalist service Dr. Vergara and the patient was admitted to the medicine service. I did inform the patient of the findings and he is comfortable with this current plan of care. Prior /Outside records reviewed: None Differential diagnosis: Cellulitis, abscess, MRSA infection, DVT, necrotizing fasciitis, dermatitis, drug eruption, allergic reaction, as well as other pathologies. Diagnostics, as interpreted by me: ECG: None Cardiac monitoring: An order was placed for continuous cardiac monitoring. The monitor shows a rate of 82 with sinus rhythm. Patient was placed on pulse oximetry Medical decision rules: None Imaging studies: See below HPI: Patient presents due to concern for right lower extremity cellulitis. The patient states that this began about 10 days prior and had been on a prolonged course of Keflex for 10 days but has not noted significant improvement in symptoms. He called his primary care doctor was referred here so that he likely needs a "stronger antibiotics." Patient Nuys any chest pains or shortness of breath. The patient is on Coumadin. Patient denies any nausea vomiting fevers or chills. The patient does admit to bilateral lower extremity pain and does suffer from neuropathy although may be slightly worse. The patient primarily is concerned about cellulitic change in the right lower extremity. Patient does have a known history of PAD in his bilateral lower extremities and has a prior history of necrotizing fasciitis status post debridement in December 2021. PAST MEDICAL HISTORY: See Below PAST SURGICAL HISTORY: See Below SOCIAL HISTORY: See Below HOME MEDICATIONS: See Below ALLERGIES: See Below VITALS: See Below PHYSICAL EXAMINATION: GENERAL: NAD, wearing a mask, non-toxic. EYE EXAM: Normal conjunctiva. PERRL, no anisocoria and EOM's grossly intact w/o pain. NECK: Supple, no nuchal rigidity, no adenopathy, non-tender. No signs of meningismus. FROM of the neck with good chin to chest and neck extension. No stridor. LUNGS: Clear to auscultation. Normal chest wall mechanics. HEART: NSR, no MRG. ABDOMEN: Abdomen soft, non-tender, normo-active bowel sounds, no masses, no rebound or guarding. BACK: No CVA TTP. SKIN: No rashes and no bruising. UPPER EXTREMITIES: Upper extremities are grossly normal. LOWER EXTREMITIES: Bilateral lower extremities tender to palpation, discoloration in the left foot worse compared to the right, 8 x 10 cm area of erythema and pallor noted to the right lateral l[place] area without any crepitus. No crepitus in the bilateral lower extremities. Difficult to palpate a true pulse in the bilateral lower extremities. Patient does feel more warm and well- perfused in the right foot compared to the left foot NEURO EXAM: A&O x3, cranial nerves II-XII grossly intact, normal speech, moves all 4 extremities. Past Med/Surg History Medical History Diabetic neuropathy HLD (hyperlipidemia) HTN (hypertension) Morbid obesity MEETA (obstructive sleep apnea) not on cpap or O2 T2DM (type 2 diabetes mellitus) Surgical History Hx of laminectomy L3-S1 Family History Other Cancer Diabetes Family history of blood clots Heart disease Social History Smoking Status: Former smoker Tobacco Type: Pipe and Cigars Cigarettes Per Day: 4; Second Hand Exposure: No; Hx Alcohol Use: No Hx Substance Use: Yes Prescribed Medications: Marijuana Last Used Substance: Da ys (ago) Last Used Substance Other:: last night Substance Use Type Other:: stated helps with his neuropathy pain Preferred Language: Nigerien Communication Ability: Effective Visual Impairment: Limited Hearing Ability: Hard of Hearing Acid Tender Required: No Beliefs That Will Affect Care: None marital status: marital status details: but currently going through divorce Current Living Situation: Alone Current Living Situation Comment: staying with friend currently current occupational status: unemployed How many Children do You have: 2 How many Children do You have Comment: son is involved with care and able to assist with care as needed (son lives 30 minutes from pt) Feels Safe at Home: Yes Diet Comment: tries to pay attention to what he eats regarding diabetes. during the past year weight has: increased > 10 lbs Assistive Devices: Walker and Wheelchair Allergies Allergies Allergy/AdvReac Type Severity Reaction Status Date / Time metformin AdvReac Severe SEVERE Verified 06/16/22 19:44 DIARRHEA Home Meds Home Medications Medication Instructions Recorded Confirmed atorvastatin 40 mg tablet 40 mg PO QAM 06/16/22 06/16/22 cephalexin 500 mg capsule 500 mg PO BID 06/16/22 06/16/22 clopidogrel 75 mg tablet 75 mg PO QAM 06/16/22 06/16/22 diclofenac sodium 1 % topical gel 1 ea topical QID PRN Pain 06/16/22 06/16/22 enoxaparin 150 mg/mL subcutaneous 150 mg subcut UD .upcoming 06/16/22 06/16/22 syringe procedure gabapentin 600 mg tablet 600 mg PO TID 06/16/22 06/16/22 insulin aspart U-100 100 unit/mL 6 - 10 unit subcut TIDWMEAL 06/16/22 06/16/22 (3 mL) subcutaneous pen insulin glargine 100 unit/mL (3 40 unit subcut QAM 06/16/22 06/16/22 mL) subcutaneous pen (Lantus Solostar U-100 Insulin) insulin glargine 100 unit/mL 12 unit subcut PM 06/16/22 06/16/22 subcutaneous solution (Lantus U-100 Insulin) lisinopril 40 mg tablet 40 mg PO QAM 06/16/22 06/16/22 metoprolol succinate 50 mg 50 mg PO QAM 06/16/22 06/16/22 tablet,extended release 24 hr nicotine 21 mg/24 hr daily 1 patch topical DAILY 06/16/22 06/16/22 transdermal patch tramadol 50 mg tablet 50 mg PO Q4 PRN Pain 06/16/22 06/16/22 warfarin 10 mg tablet 15 - 20 mg PO DIRECTED 06/16/22 06/16/22 Results & Data (ED) Vital Signs Vital Signs - 24 hr 06/16/22 15:24 06/16/22 19:14 06/16/22 20:55 Temperature 36.7 C Temperature Source Skin Pulse Rate 79 Pulse Rate [Finger] 82 80 Pulse Rhythm Regular Pulse Strength Normal Respiratory Rate 20 16 18 Respiratory Effort / Characteristics Non-Labored Spontaneous Respiratory Depth Normal Respiratory Pattern Regular Blood Pressure 154/80 H Blood Pressure [Right Arm] 158/79 H 163/80 H Blood Pressure Mean 104 Blood Pressure Mean [Right Arm] 105 107 Pulse Oximetry 96 95 98 Oxygen Delivery Method Room Air Room Air Room Air Sepsis Recent Fever Within 48 Hours No Sepsis New/Unexplained Change in Mental Status N/A Sepsis Action Taken by Nursing No Action Required Home Medications Current Medication List: was personally reviewed by me Laboratory Data Attestation: I reviewed the patient's lab results. 06/16/22 17:20 06/16/22 17:20 Lab Results 06/16/22 06/16/22 06/16/22 Range/Units 17:20 17:20 17:20 WBC 11.69 H (4.8-10.8) K/ul RBC 4.93 (4.70-6.10) M/uL Hgb 12.4 L (14.0-18.0) g/dl Hct 38.7 L (42.0-52.0) % MCV 78.5 L (80.0-100.0) fL MCH 25.2 (25.0-34.0) pg MCHC 32.0 (32.0-36.0) g/dL RDW Std Deviation 53.9 H (36.4-46.3) fL RDW Coeff of Mercedes 19.3 H (11.5-14.5) % Plt Count 385 (130-400) K/uL MPV 11.4 (9.4-12.4) fL Immature Gran % (Auto) 0.4 % Neut % (Auto) 57.5 % Lymph % (Auto) 27.6 % [place] % (Auto) 8.7 % Eos % (Auto) 4.7 % Baso % (Auto) 1.1 % Neut # (Auto) 6.71 H (1.40-6.50) K/uL Lymph # (Auto) 3.23 (1.2-3.4) K/uL [place] # (Auto) 1.02 H (0.11-0.59) K/uL Eos # (Auto) 0.55 H (0-0.50) K/uL Baso # (Auto) 0.13 (0-0.2) K/uL Immature Gran # (Auto) 0.05 (0.01-0.20) K/uL ESR (0-20) mm/hr PT (9.0-12.0) Seconds INR (0.9-1.1) APTT (21.0-31.0) Seconds PTT Ratio Sodium 137 (136-145) mmol/L Potassium 4.0 (3.5-5.1) mmol/L Chloride 104 (98-107) mmol/L Carbon Dioxide 29 (21-32) mmol/L Anion Gap 4 (3-11) BUN 16 (6-23) mg/dl Creatinine 0.75 (0.6-1.4) mg/dl Est Cr Clr Drug Dosing 157.6 ml/min Est GFR ( Amer) 118.0 ml/min Est GFR (Non-Af Amer) 101.8 ml/min BUN/Creatinine Ratio 21.3 H (10-20) Glucose 60 L (70-99(Fasting)) mg/dl POC Glucose (70-99) mg/dl Lactate 0.8 (0.4-2.0) mmol/L Calcium 10.4 H (8.5-10.1) mg/dl Magnesium 1.8 (1.7-2.4) mg/dl Total Bilirubin 0.3 (0.2-1.0) mg/dl AST 14 (13-39) U/L ALT 11 (7-52) U/L Alkaline Phosphatase 76 (34-104) U/L C-Reactive Protein 1.00 H (0-0.5) mg/dl Total Protein 7.8 (6.0-8.3) gm/dl Albumin 4.1 (3.4-5.0) gm/dl Globulin 3.7 (2.5-4.0) gm/dl Albumin/Globulin Ratio 1.1 (0.9-2) Procalcitonin (0-0.5) ng/ml Urine Color Urine Appearance (Clear) Urine pH (4.5-7.5) Ur Specific [place] (1.000-1.030) Urine Protein (Negative) Urine Glucose (UA) (Negative) Urine Ketones (Negative) Urine Blood (Negative) Urine Nitrite (Negative) Urine Bilirubin (Negative) Urine Urobilinogen (Negative) Ur Leukocyte Esterase (Negative) Urine WBC (Auto) (0-5) /hpf Urine RBC (Auto) (0-4) /hpf U Hyaline Cast (Auto) (0-5) /lpf U Epithel Cells (Auto) (0-5) /lpf Urine Bacteria (Auto) (Negative) SARS-CoV-2, RNA, NAAT (NEGATIVE) 06/16/22 06/16/22 06/16/22 Range/Units 17:20 17:20 17:20 WBC (4.8-10.8) K/ul RBC (4.70-6.10) M/uL Hgb (14.0-18.0) g/dl Hct (42.0-52.0) % MCV (80.0-100.0) fL MCH (25.0-34.0) pg MCHC (32.0-36.0) g/dL RDW Std Deviation (36.4-46.3) fL RDW Coeff of Mercedes (11.5-14.5) % Plt Count (130-400) K/uL MPV (9.4-12.4) fL Immature Gran % (Auto) % Neut % (Auto) % Lymph % (Auto) % [place] % (Auto) % Eos % (Auto) % Baso % (Auto) % Neut # (Auto) (1.40-6.50) K/uL Lymph # (Auto) (1.2-3.4) K/uL [place] # (Auto) (0.11-0.59) K/uL Eos # (Auto) (0-0.50) K/uL Baso # (Auto) (0-0.2) K/uL Immature Gran # (Auto) (0.01-0.20) K/uL ESR 95 H (0-20) mm/hr PT 32.4 H (9.0-12.0) Seconds INR 3.2 H (0.9-1.1) APTT 40.4 H (21.0-31.0) Seconds PTT Ratio 1.5 Sodium (136-145) mmol/L Potassium (3.5-5.1) mmol/L Chloride (98-107) mmol/L Carbon Dioxide (21-32) mmol/L Anion Gap (3-11) BUN (6-23) mg/dl Creatinine (0.6-1.4) mg/dl Est Cr Clr Drug Dosing ml/min Est GFR ( Amer) ml/min Est GFR (Non-Af Amer) ml/min BUN/Creatinine Ratio (10-20) Glucose (70-99(Fasting)) mg/dl POC Glucose (70-99) mg/dl Lactate (0.4-2.0) mmol/L Calcium (8.5-10.1) mg/dl Magnesium (1.7-2.4) mg/dl Total Bilirubin (0.2-1.0) mg/dl AST (13-39) U/L ALT (7-52) U/L Alkaline Phosphatase (34-104) U/L C-Reactive Protein (0-0.5) mg/dl Total Protein (6.0-8.3) gm/dl Albumin (3.4-5.0) gm/dl Globulin (2.5-4.0) gm/dl Albumin/Globulin Ratio (0.9-2) Procalcitonin < 0.05 (0-0.5) ng/ml Urine Color Urine Appearance (Clear) Urine pH (4.5-7.5) Ur Specific [place] (1.000-1.030) Urine Protein (Negative) Urine Glucose (UA) (Negative) Urine Ketones (Negative) Urine Blood (Negative) Urine Nitrite (Negative) Urine Bilirubin (Negative) Urine Urobilinogen (Negative) Ur Leukocyte Esterase (Negative) Urine WBC (Auto) (0-5) /hpf Urine RBC (Auto) (0-4) /hpf U Hyaline Cast (Auto) (0-5) /lpf U Epithel Cells (Auto) (0-5) /lpf Urine Bacteria (Auto) (Negative) SARS-CoV-2, RNA, NAAT (NEGATIVE) 06/16/22 06/16/22 06/16/22 Range/Units 17:30 19:13 19:43 WBC (4.8-10.8) K/ul RBC (4.70-6.10) M/uL Hgb (14.0-18.0) g/dl Hct (42.0-52.0) % MCV (80.0-100.0) fL MCH (25.0-34.0) pg MCHC (32.0-36.0) g/dL RDW Std Deviation (36.4-46.3) fL RDW Coeff of Mercedes (11.5-14.5) % Plt Count (130-400) K/uL MPV (9.4-12.4) fL Immature Gran % (Auto) % Neut % (Auto) % Lymph % (Auto) % [place] % (Auto) % Eos % (Auto) % Baso % (Auto) % Neut # (Auto) (1.40-6.50) K/uL Lymph # (Auto) (1.2-3.4) K/uL [place] # (Auto) (0.11-0.59) K/uL Eos # (Auto) (0-0.50) K/uL Baso # (Auto) (0-0.2) K/uL Immature Gran # (Auto) (0.01-0.20) K/uL ESR (0-20) mm/hr PT (9.0-12.0) Seconds INR (0.9-1.1) APTT (21.0-31.0) Seconds PTT Ratio Sodium (136-145) mmol/L Potassium (3.5-5.1) mmol/L Chloride (98-107) mmol/L Carbon Dioxide (21-32) mmol/L Anion Gap (3-11) BUN (6-23) mg/dl Creatinine (0.6-1.4) mg/dl Est Cr Clr Drug Dosing ml/min Est GFR ( Amer) ml/min Est GFR (Non-Af Amer) ml/min BUN/Creatinine Ratio (10-20) Glucose (70-99(Fasting)) mg/dl POC Glucose 68 L* (70-99) mg/dl Lactate (0.4-2.0) mmol/L Calcium (8.5-10.1) mg/dl Magnesium (1.7-2.4) mg/dl Total Bilirubin (0.2-1.0) mg/dl AST (13-39) U/L ALT (7-52) U/L Alkaline Phosphatase (34-104) U/L C-Reactive Protein (0-0.5) mg/dl Total Protein (6.0-8.3) gm/dl Albumin (3.4-5.0) gm/dl Globulin (2.5-4.0) gm/dl Albumin/Globulin Ratio (0.9-2) Procalcitonin (0-0.5) ng/ml Urine Color Yellow Urine Appearance Clear (Clear) Urine pH 5.5 (4.5-7.5) Ur Specific [place] 1.010 (1.000-1.030) Urine Protein 2+ H (Negative) Urine Glucose (UA) Negative (Negative) Urine Ketones Negative (Negative) Urine Blood Negative (Negative) Urine Nitrite Negative (Negative) Urine Bilirubin Negative (Negative) Urine Urobilinogen Negative (Negative) Ur Leukocyte Esterase Negative (Negative) Urine WBC (Auto) 1-5 (0-5) /hpf Urine RBC (Auto) 0-4 (0-4) /hpf U Hyaline Cast (Auto) 1-5 (0-5) /lpf U Epithel Cells (Auto) 0-5 (0-5) /lpf Urine Bacteria (Auto) Negative (Negative) SARS-CoV-2, RNA, NAAT NEGATIVE (NEGATIVE) 06/16/22 Range/Units 21:05 WBC (4.8-10.8) K/ul RBC (4.70-6.10) M/uL Hgb (14.0-18.0) g/dl Hct (42.0-52.0) % MCV (80.0-100.0) fL MCH (25.0-34.0) pg MCHC (32.0-36.0) g/dL RDW Std Deviation (36.4-46.3) fL RDW Coeff of Mercedes (11.5-14.5) % Plt Count (130-400) K/uL MPV (9.4-12.4) fL Immature Gran % (Auto) % Neut % (Auto) % Lymph % (Auto) % [place] % (Auto) % Eos % (Auto) % Baso % (Auto) % Neut # (Auto) (1.40-6.50) K/uL Lymph # (Auto) (1.2-3.4) K/uL [place] # (Auto) (0.11-0.59) K/uL Eos # (Auto) (0-0.50) K/uL Baso # (Auto) (0-0.2) K/uL Immature Gran # (Auto) (0.01-0.20) K/uL ESR (0-20) mm/hr PT (9.0-12.0) Seconds INR (0.9-1.1) APTT (21.0-31.0) Seconds PTT Ratio Sodium (136-145) mmol/L Potassium (3.5-5.1) mmol/L Chloride (98-107) mmol/L Carbon Dioxide (21-32) mmol/L Anion Gap (3-11) BUN (6-23) mg/dl Creatinine (0.6-1.4) mg/dl Est Cr Clr Drug Dosing ml/min Est GFR ( Amer) ml/min Est GFR (Non-Af Amer) ml/min BUN/Creatinine Ratio (10-20) Glucose (70-99(Fasting)) mg/dl POC Glucose 94 (70-99) mg/dl Lactate (0.4-2.0) mmol/L Calcium (8.5-10.1) mg/dl Magnesium (1.7-2.4) mg/dl Total Bilirubin (0.2-1.0) mg/dl AST (13-39) U/L ALT (7-52) U/L Alkaline Phosphatase (34-104) U/L C-Reactive Protein (0-0.5) mg/dl Total Protein (6.0-8.3) gm/dl Albumin (3.4-5.0) gm/dl Globulin (2.5-4.0) gm/dl Albumin/Globulin Ratio (0.9-2) Procalcitonin (0-0.5) ng/ml Urine Color Urine Appearance (Clear) Urine pH (4.5-7.5) Ur Specific [place] (1.000-1.030) Urine Protein (Negative) Urine Glucose (UA) (Negative) Urine Ketones (Negative) Urine Blood (Negative) Urine Nitrite (Negative) Urine Bilirubin (Negative) Urine Urobilinogen (Negative) Ur Leukocyte Esterase (Negative) Urine WBC (Auto) (0-5) /hpf Urine RBC (Auto) (0-4) /hpf U Hyaline Cast (Auto) (0-5) /lpf U Epithel Cells (Auto) (0-5) /lpf Urine Bacteria (Auto) (Negative) SARS-CoV-2, RNA, NAAT (NEGATIVE) Administered Medications Sodium Chloride (Nss 1000ml) 1,000 mls @ 75 mls/hr IV .[id number] ONE Stop: 06/17/22 09:18 Last Admin: 06/16/22 20:26 Dose: 100 mls/hr Documented By: SARAY Discontinued Medications Diphenhydramine HCl (Diphenhydramine 50 Mg/Ml Vial) 12.5 mg IV NOW STA Stop: 06/16/22 19:31 Last Admin: 06/16/22 19:39 Dose: 12.5 mg Documented By: SARAY Piperacillin Sod/Tazobactam Sod (Zosyn) 4.5 gm in 120 mls @ 240 mls/hr IV NOW ONE Stop: 06/16/22 18:03 Last Infusion: 06/16/22 19:33 Dose: 0 mls/hr Documented By: Admin: 06/16/22 19:03 Dose: 240 mls/hr Documented By: SARAY Doxycycline Hyclate 100 mg/ (Dextrose) 110 mls @ 50 mls/hr IV NOW STA Stop: 06/16/22 22:14 Last Infusion: 06/16/22 22:24 Dose: 0 mls/hr Documented By: Admin: 06/16/22 20:26 Dose: 50 mls/hr Documented By: SARAY Ioversol (Optiray 320 500ml) 111 ml IV ONCE ONE Stop: 06/16/22 21:45 Last Admin: 06/16/22 21:44 Dose: 111 ml Documented By: SHANTANU Morphine Sulfate (Morphine Sulfate 4 Mg/Ml 1 Ml Carp\\Vial) 4 mg IV NOW STA Stop: 06/16/22 19:14 Last Admin: 06/16/22 19:40 Dose: 4 mg Documented By: SARAY Imaging Data Radiologist's Impression: Duplex Scan Lower Extremity Artery 06/16/22 16:28 BILATERAL LOWER EXTREMITY ARTERIAL DOPPLER ULTRASOUND CLINICAL HISTORY: h/o PAD, RLE cellulitis, pain COMPARISON STUDY: Left lower extremity arterial Doppler ultrasound February 24, 2022 and CTA of the abdomen and pelvis February 24, 2022. TECHNIQUE: Grayscale, color and duplex Doppler sonography of the arterial systems of both lower extremities was performed. FINDINGS: Moderate to extensive plaque is noted within the bilateral lower extremities. There is triphasic flow within the right common femoral artery. Elevated peak systolic velocity of 415 cm/s within the mid right superficial femoral artery suggests a stenosis. There is trace flow versus occlusion of the distal right superficial femoral artery with reconstitution. There is dampened, monophasic flow within the right posterior tibial, anterior tibial, peroneal and dorsalis pedis vessels. Biphasic and triphasic flow within the left lower extremity is noted. No flow is confidently identified within the left peroneal artery. Otherwise, flow within the left calf vessels has improved since ultrasound of February 24, 2022. Specifically, note is made of biphasic flow within the left popliteal, posterior tibial, anterior tibial and dorsalis pedis vessels. No elevated velocities w ithin the left lower extremity were identified. IMPRESSION: 1. Moderate to extensive plaque within the bilateral lower extremities. Hemodynamically significant stenosis within the mid right superficial femoral artery with occlusion versus trace flow within the distal right superficial femoral artery. Dampened, monophasic flow within the right calf vessels. 2. Biphasic and triphasic waveforms within the left lower extremity. Overall, flow improved within the left calf vessels since ultrasound of February 24, 2022. ACT 112: Negative or not required by law. Electronically signed by: Oliver Montgomery M.D. 06/16/2022 7:14 PM Discharge Plan Visit Data Chief Complaint: Swelling/Edema to Extremity Stated Complaint: CELLULITIS ED Provider: Tom Farias Discharge Problem: Cellulitis, PVD (peripheral vascular disease), Hypoglycemia, Bilateral leg pain, Neuropathy Discharge Instructions Interventions: ED Discharge Assessment Last Done: 06/16/22 22:19 Forms Stand Alone Forms: My [facility] Prescriptions Prescriptions: No Action warfarin 10 mg tablet 15 - 20 mg PO DIRECTED Rx Instructions: as directed by anticoagulation clinic nicotine 21 mg/24 hr patch 24 hour 1 patch topical DAILY atorvastatin 40 mg tablet 40 mg PO QAM gabapentin 600 mg tablet 600 mg PO TID Rx Instructions: Take am, noon, hs insulin glargine [Lantus U-100 Insulin] 100 unit/mL Solution 12 unit SUBCUT PM metoprolol succinate 50 mg tablet extended release 24 hr 50 mg PO QAM clopidogrel 75 mg tablet 75 mg PO QAM tramadol 50 mg tablet 50 mg PO Q4 PRN (Reason: Pain) cephalexin 500 mg capsule 500 mg PO BID Rx Instructions: stop 05/28/2022 enoxaparin 150 mg/mL Syringe 150 mg SUBCUT UD Rx Instructions: use to bridge for upcoming procedure lisinopril 40 mg tablet 40 mg PO QAM insulin aspart U-100 100 unit/mL (3 mL) insulin pen 6 - 10 unit SUBCUT TIDWMEAL Rx Instructions: According to salud alvarado and ss insulin glargine [Lantus Solostar U-100 Insulin] 100 unit/mL (3 mL) insulin pen 40 unit SUBCUT QAM diclofenac sodium 1 % gel 1 ea TOPICAL QID PRN (Reason: Pain) Referrals Referrals: Julio César Pulliam DO [Primary Care Provider] -
[2022-06-16] MEDS ORDERED: PIPERACILLIN/TAZOBACTAM 4.5 GM/120 ML BAG IV ONE (17:34)
[2022-06-16 17:39] LABS: Basophils # (auto) 0.13 K/uL (0-0.2); Basophils % (auto) 1.1 %; Eosinophils # (auto) 0.55 K/uL (0-0.50); Eosinophils % (auto) 4.7 %; Hematocrit (blood only) 38.7 % (42.0-52.0); Hemoglobin 12.4 g/dl (14.0-18.0); Immature Granulocytes # (auto) 0.05 K/uL (0.01-0.20); Immature Granulocytes % (auto) 0.4 %; Lymphocytes # (auto) 3.23 K/uL (1.2-3.4); Lymphocytes % (auto) 27.6 %; Mean Corpuscular Hemoglobin 25.2 pg (25.0-34.0); Mean Corpuscular Volume 78.5 fL (80.0-100.0); Mean Platelet Volume 11.4 fL (9.4-12.4); Monocytes # (auto) 1.02 K/uL (0.11-0.59); Monocytes % (auto) 8.7 %; Neutrophils # (auto) 6.71 K/uL (1.40-6.50); Neutrophils % (auto) 57.5 %; Platelet Count 385 K/uL (130-400); RDW Coefficient of Variation 19.3 % (11.5-14.5); RDW Standard Deviation 53.9 fL (36.4-46.3); Red Blood Count 4.93 M/uL (4.70-6.10); White Blood Count 11.69 K/ul (4.8-10.8)
[2022-06-16 17:57] LABS: Albumin Globulin Ratio 1.1 (0.9-2); Albumin Level 4.1 gm/dl (3.4-5.0); BUN Creatinine Ratio 21.3 (10-20); Bilirubin,Total 0.3 mg/dl (0.2-1.0); Calcium 10.4 mg/dl (8.5-10.1); Creatinine Clr Calc Pharmacy 157.6 ml/min; Est GFR (Non-African American) 101.8 ml/min; Globulin 3.7 gm/dl (2.5-4.0); Total Protein 7.8 gm/dl (6.0-8.3)
[2022-06-16 18:22] LABS: Appearance Urine Clear (Clear); Bacteria Urine Automated Negative (Negative); Bilirubin Urine Negative (Negative); Blood Urine Negative (Negative); Color Urine Yellow; Epithelial Cell Urine Auto 0-5 /lpf (0-5); Glucose Urine UA Negative (Negative); Ketones Urine Negative (Negative); Leukocyte Esterase Urine Negative (Negative); Nitrite Urine Negative (Negative); Protein Urine 2+ (Negative); RBC Urine Automated 0-4 /hpf (0-4); Urobilinogen Urine Negative (Negative); pH Urine 5.5 (4.5-7.5)
[2022-06-16 19:04] LABS: INR 3.2 (0.9-1.1); Partial Thromboplastin Ratio 1.5; Partial Thromboplastin Time 40.4 Seconds (21.0-31.0); Prothrombin Time 32.4 Seconds (9.0-12.0)
[2022-06-16] MEDS ORDERED: MoRPHine SULFATE 4 MG/ML 1 ML CARP\\VIAL IV STA (19:13)
--- NOTE | 2022-06-16 19:16 | Ultrasound Report ---
BILATERAL LOWER EXTREMITY ARTERIAL DOPPLER ULTRASOUND CLINICAL HISTORY: h/o PAD, RLE cellulitis, pain COMPARISON STUDY: Left lower extremity arterial Doppler ultrasound February 24, 2022 and CTA of the a bdomen and pelvis February 24, 2022. TECHNIQUE: Grayscale, color and duplex Doppler sonography of the arterial systems of both lower extre mities was performed. FINDINGS: Moderate to extensive plaque is noted within the bilateral lower extremities. There is trip hasic flow within the right common femoral artery. Elevated peak systolic velocity of 415 cm/s within the mid right superficial femoral artery suggests a stenosis. There is trace flow versus occlusion o f the distal right superficial femoral artery with reconstitution. There is dampened, monophasic flow within the right posterior tibial, anterior tibial, peroneal and dorsalis pedis vessels. Biphasic and triphasic flow within the left lower extremity is noted. No flow is confidently identifi ed within the left peroneal artery. Otherwise, flow within the left calf vessels has improved since u ltrasound of February 24, 2022. Specifically, note is made of biphasic flow within the left popliteal, posterior tibial, anterior tibial and dorsalis pedis vessels. No elevated velocities within the left lower extremity were identified. IMPRESSION: 1. Moderate to extensive plaque within the bilateral lower extremities. Hemodynamically significant s tenosis within the mid right superficial femoral artery with occlusion versus trace flow within the d istal right superficial femoral artery. Dampened, monophasic flow within the right calf vessels. 2. Biphasic and triphasic waveforms within the left lower extremity. Overall, flow improved within th e left calf vessels since ultrasound of February 24, 2022. ACT 112: Negative or not required by law. Electronically signed by: Oliver Montgomery M.D. 06/16/2022 7:14 PM
[2022-06-16] MEDS ORDERED: diphenhydrAMINE 50 MG/ML VIAL IV STA (19:30)
[2022-06-16] MEDS ORDERED: SODIUM CHLORIDE 0.9% 1000ML 1,000 ML IV ONE (19:59)
[2022-06-16] MEDS ORDERED: DOXYCYCLINE HYCLATE 100 MG in DEXTROSE 5% 100 ML IV STA (20:03)
[2022-06-16 20:23] LABS: Magnesium 1.8 mg/dl (1.7-2.4)
--- NOTE | 2022-06-16 21:01 | History & Physical Report ---
Date of Service June 16, 2022 Assessment & Plan (1) Cellulitis: Plan: RLE cellulitis Underlying PAD, INR slightly supratherapeutic on Coumadin Failed outpatient treatment No sepsis for now hypertension, slightly elevated secondary to discomfort hyperlipidemia on statin Rx Exertional angina symptoms of weeks duration, elective diagnostic cardiac catheterization contemplated next month. hx PSVT/VT as per records valvular heart disease (mild MR/TR ) DM 2 insulin requiring, hypoglycemic episode at the ER, infrequent episodes at home as per patient, reasonable control as of recent outpatient hemoglobin A1c of 7.2 last April 2022 chronic anemia, hemoglobin at baseline ongoing tobacco abuse, patient on home nicotine patch GMF Cefepime, doxycycline Local measures for RLE cellulitis Vascular surgery consult Re: RLE arterial occlusion in the setting of RLE cellulitis unresponsive to outpatient treatment Basal bolus insulin (continue a.m. dosing, hold p.m. dosing for now given hypoglycemic episode), ISS BG goal 1 10-1 40, carb count coverage DVT prophylaxis. Coumadin iron goal between 2 and 3 Full code Text document was generated using [employer] voice recognition software. It may contain grammatical or spelling errors. Kindly contact undersigned for clarification of any documentation item in question. History of Present Illness Chief Complaint: Worsening right leg swelling Primary Care Provider: Julio César Pulliam DO History obtained from patient and records. Medical history significant for hypertension, hyperlipidemia, PSVT/VT as per records, valvular heart disease (mild MR/TR ), PVD on Coumadin, MEETA, DM 2 insulin requiring, chronic anemia (baseline hemoglobin of 11 ), ongoing tobacco abuse. Last confinement February 2022 for left toe ulceration in the setting of iliac stenosis. Minimal iliac disease on angiogram. Vascular surgery recommended anticoagulation. Patient discharged on Lovenox Coumadin bridge therapy. 2 weeks ago, patient noted painful right lower leg swelling. No recollection of trauma. No fever, no chills. Usual exertional angina symptoms for which [facility] [place] is contemplating elective cardiac catheterization next month at [facility]. Keflex course prescribed by PCP. Worsening swelling despite medication compliance. Zosyn administered at the ER. 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 Allergies Allergy/AdvReac Type Severity Reaction Status Date / Time metformin AdvReac Severe SEVERE Verified 06/16/22 19:44 DIARRHEA Home Medications Medication Instructions Recorded Confirmed Type atorvastatin 40 mg tablet 40 mg PO QAM 06/16/22 06/16/22 History cephalexin 500 mg capsule 500 mg PO BID 06/16/22 06/16/22 History clopidogrel 75 mg tablet 75 mg PO QAM 06/16/22 06/16/22 History diclofenac sodium 1 % topical gel 1 ea topical QID PRN Pain 06/16/22 06/16/22 History enoxaparin 150 mg/mL subcutaneous 150 mg subcut UD .upcoming 06/16/22 06/16/22 History syringe procedure gabapentin 600 mg tablet 600 mg PO TID 06/16/22 06/16/22 History insulin aspart U-100 100 unit/mL 6 - 10 unit subcut TIDWMEAL 06/16/22 06/16/22 History (3 mL) subcutaneous pen insulin glargine 100 unit/mL (3 40 unit subcut QAM 06/16/22 06/16/22 History mL) subcutaneous pen (Lantus Solostar U-100 Insulin) insulin glargine 100 unit/mL 12 unit subcut PM 06/16/22 06/16/22 History subcutaneous solution (Lantus U-100 Insulin) lisinopril 40 mg tablet 40 mg PO QAM 06/16/22 06/16/22 History metoprolol succinate 50 mg 50 mg PO QAM 06/16/22 06/16/22 History tablet,extended release 24 hr nicotine 21 mg/24 hr daily 1 patch topical DAILY 06/16/22 06/16/22 History transdermal patch tramadol 50 mg tablet 50 mg PO Q4 PRN Pain 06/16/22 06/16/22 History warfarin 10 mg tablet 15 - 20 mg PO DIRECTED 06/16/22 06/16/22 History Past Med/Surg History Medical History Diabetic neuropathy HLD (hyperlipidemia) HTN (hypertension) Morbid obesity MEETA (obstructive sleep apnea) not on cpap or O2 T2DM (type 2 diabetes mellitus) Surgical History Hx of laminectomy L3-S1 Family History Other Cancer Diabetes Family history of blood clots Heart disease Social History Smoking Status: Current every day smoker Tobacco Type: Pipe and Cigars Cigarettes Per Day: 4; Second Hand Exposure: No; Hx Alcohol Use: Yes Alcohol type: beer Alcohol Intake Frequency Comment: rare Hx Substance Use: Yes Prescribed Medications: Marijuana Last Used Substance: Hours (ago) Last Used Substance Other:: last night Substance Use Type Other:: stated helps with his neuropathy pain Preferred Language: [place] Citizen Communication Ability: Effective Visual Impairment: Limited Hearing Ability: Hard of Hearing Oracle Fusion Developer Required: No Beliefs That Will Affect Care: None marital status: marital status details: but currently going through divorce Current Living Situation: Spouse Current Living Situation Comment: pt states he and his are in the process of current occupational status: unemployed How many Children do You have: 2 How many Children do You have Comment: son is involved with care and able to assist with care as needed (son lives 30 minutes from pt) Other Information That Helps Us Care for You: No Feels Safe at Home: Yes Safety Concerns: Feels Safe At This Time Diet Comment: tries to pay attention to what he eats regarding diabetes. during the past year weight has: increased > 10 lbs Assistive Devices: Walker Review of Systems Review of Systems: As per HPI, all other systems reviewed and negative Physical Exam Physical Exam: GENERAL: Comfortable, morbidly obese, no respiratory distress SKIN: Pallor, warm HEENT: Pale palpebral conjunctivae, no ptosis, dry buccal mucosa NECK : Supple, short neck, no tenderness CHEST : Decreased breath sounds, no tenderness HEART : RRR, no obvious murmurs ABDOMEN: Some distention, nontender EXTREMITIES : Tender LLE induration, chronic RLE venous stasis, no other conspicuous deformities noted NEUROLOGIC : Coherent, no facial asymmetry, no other gross focality Results & Data Results & Data ([facility]) Vital Signs (Past 12 Hours) Vital Signs Temp Pulse Pulse Resp BP BP Pulse Ox 06/16/22 20:55 80 18 163/80 H 98 06/16/22 19:14 82 16 158/79 H 95 06/16/22 15:24 36.7 C 79 20 154/80 H 96 O2 Del Method 06/16/22 20:55 Room Air 06/16/22 19:14 Room Air 06/16/22 15:24 Room Air Laboratory Results Laboratory Results WBC 11.69 K/ul (4.8-10.8) H 06/16/22 17:20 RBC 4.93 M/uL (4.70-6.10) 06/16/22 17:20 Hgb 12.4 g/dl (14.0-18.0) L 06/16/22 17:20 Hct 38.7 % (42.0-52.0) L 06/16/22 17:20 MCV 78.5 fL (80.0-100.0) L 06/16/22 17:20 MCH 25.2 pg (25.0-34.0) 06/16/22 17:20 MCHC 32.0 g/dL (32.0-36.0) 06/16/22 17:20 RDW Std Deviation 53.9 fL (36.4-46.3) H 06/16/22 17:20 RDW Coeff of Mercedes 19.3 % (11.5-14.5) H 06/16/22 17:20 Plt Count 385 K/uL (130-400) 06/16/22 17:20 MPV 11.4 fL (9.4-12.4) 06/16/22 17:20 Immature Gran % (Auto) 0.4 % 06/16/22 17:20 Neut % (Auto) 57.5 % 06/16/22 17:20 Lymph % (Auto) 27.6 % 06/16/22 17:20 [place] % (Auto) 8.7 % 06/16/22 17:20 Eos % (Auto) 4.7 % 06/16/22 17:20 Baso % (Auto) 1.1 % 06/16/22 17:20 Neut # (Auto) 6.71 K/uL (1.40-6.50) H 06/16/22 17:20 Lymph # (Auto) 3.23 K/uL (1.2-3.4) 06/16/22 17:20 [place] # (Auto) 1.02 K/uL (0.11-0.59) H 06/16/22 17:20 Eos # (Auto) 0.55 K/uL (0-0.50) H 06/16/22 17:20 Baso # (Auto) 0.13 K/uL (0-0.2) 06/16/22 17:20 Immature Gran # (Auto) 0.05 K/uL (0.01-0.20) 06/16/22 17:20 ESR 95 mm/hr (0-20) H 06/16/22 17:20 PT 32.4 Seconds (9.0-12.0) H 06/16/22 17:20 INR 3.2 (0.9-1.1) H 06/16/22 17:20 APTT 40.4 Seconds (21.0-31.0) H 06/16/22 17:20 PTT Ratio 1.5 06/16/22 17:20 Sodium 137 mmol/L (136-145) 06/16/22 17:20 Potassium 4.0 mmol/L (3.5-5.1) 06/16/22 17:20 Chloride 104 mmol/L (98-107) 06/16/22 17:20 Carbon Dioxide 29 mmol/L (21-32) 06/16/22 17:20 Anion Gap 4 (3-11) 06/16/22 17:20 BUN 16 mg/dl (6-23) 06/16/22 17:20 Creatinine 0.75 mg/dl (0.6-1.4) 06/16/22 17:20 Est Cr Clr Drug Dosing 157.6 ml/min 06/16/22 17:20 Est GFR ( Amer) 118.0 ml/min 06/16/22 17:20 Est GFR (Non-Af Amer) 101.8 ml/min 06/16/22 17:20 BUN/Creatinine Ratio 21.3 (10-20) H 06/16/22 17:20 Glucose 60 mg/dl (70-99(Fasting)) L 06/16/22 17:20 POC Glucose 68 mg/dl (70-99) L* 06/16/22 19:13 Lactate 0.8 mmol/L (0.4-2.0) 06/16/22 17:20 Calcium 10.4 mg/dl (8.5-10.1) H 06/16/22 17:20 Magnesium 1.8 mg/dl (1.7-2.4) 06/16/22 17:20 Total Bilirubin 0.3 mg/dl (0.2-1.0) 06/16/22 17:20 AST 14 U/L (13-39) 06/16/22 17:20 ALT 11 U/L (7-52) 06/16/22 17:20 Alkaline Phosphatase 76 U/L (34-104) 06/16/22 17:20 C-Reactive Protein 1.00 mg/dl (0-0.5) H 06/16/22 17:20 Total Protein 7.8 gm/dl (6.0-8.3) 06/16/22 17:20 Albumin 4.1 gm/dl (3.4-5.0) 06/16/22 17:20 Globulin 3.7 gm/dl (2.5-4.0) 06/16/22 17:20 Albumin/Globulin Ratio 1.1 (0.9-2) 06/16/22 17:20 Procalcitonin < 0.05 ng/ml (0-0.5) 06/16/22 17:20 Urine Color Yellow 06/16/22 17:30 Urine Appearance Clear (Clear) 06/16/22 17:30 Urine pH 5.5 (4.5-7.5) 06/16/22 17:30 Ur Specific [place] 1.010 (1.000-1.030) 06/16/22 17:30 Urine Protein 2+ (Negative) H 06/16/22 17:30 Urine Glucose (UA) Negative (Negative) 06/16/22 17:30 Urine Ketones Negative (Negative) 06/16/22 17:30 Urine Blood Negative (Negative) 06/16/22 17:30 Urine Nitrite Negative (Negative) 06/16/22 17:30 Urine Bilirubin Negative (Negative) 06/16/22 17:30 Urine Urobilinogen Negative (Negative) 06/16/22 17:30 Ur Leukocyte Esterase Negative (Negative) 06/16/22 17:30 Urine WBC (Auto) 1-5 /hpf (0-5) 06/16/22 17:30 Urine RBC (Auto) 0-4 /hpf (0-4) 06/16/22 17:30 U Hyaline Cast (Auto) 1-5 /lpf (0-5) 06/16/22 17:30 U Epithel Cells (Auto) 0-5 /lpf (0-5) 06/16/22 17:30 Urine Bacteria (Auto) Negative (Negative) 06/16/22 17:30 SARS-CoV-2, RNA, NAAT NEGATIVE (NEGATIVE) 06/16/22 19:43 Impressions Duplex Scan Lower Extremity Artery 06/16/22 16:28 BILATERAL LOWER EXTREMITY ARTERIAL DOPPLER ULTRASOUND CLINICAL HISTORY: h/o PAD, RLE cellulitis, pain COMPARISON STUDY: Left lower extremity arterial Doppler ultrasound February 24, 2022 and CTA of the abdomen and pelvis February 24, 2022. TECHNIQUE: Grayscale, color and duplex Doppler sonography of the arterial systems of both lower extremities was performed. FINDINGS: Moderate to extensive plaque is noted within the bilateral lower extremities. There is triphasic flow within the right common femoral artery. Elevated peak systolic velocity of 415 cm/s within the mid right superficial femoral artery suggests a stenosis. There is trace flow versus occlusion of the distal right superficial femoral artery with reconstitution. There is dampened, monophasic flow within the right posterior tibial, anterior tibial, peroneal and dorsalis pedis vessels. Biphasic and triphasic flow within the left lower extremity is noted. No flow is confidently identified within the left peroneal artery. Otherwise, flow within the left calf vessels has improved since ultrasound of February 24, 2022. Specifically, note is made of biphasic flow within the left popliteal, posterior tibial, anterior tibial and dorsalis pedis vessels. No elevated velocities within the left lower extremity were identified. IMPRESSION: 1. Moderate to extensive plaque within the bilateral lower extremities. Hemodynamically significant stenosis within the mid right superficial femoral artery with occlusion versus trace flow within the distal right superficial femoral artery. Dampened, monophasic flow within the right calf vessels. 2. Biphasic and triphasic waveforms within the left lower extremity. Overall, flow improved within the left calf vessels since ultrasound of February 24, 2022. ACT 112: Negative or not required by law. Electronically signed by: Oliver Montgomery M.D. 06/16/2022 7:[address] tibia-fibula initial read: No evidence of soft tissue abscess. Mild subcutaneous tissue edema seen medial to the tibial shaft. Severe osteoarthritic changes seen at the right hip. No osteomyelitis. (1) Cellulitis Laterality: right Site of cellulitis: extremity Site of cellulitis of extremity: lower extremity Qualified Code(s): L03.115 - Cellulitis of right lower limb
[2022-06-16] MEDS ORDERED: OPTIRAY 320 500ml IV ONE (21:44)
[2022-06-16] MEDS ORDERED: DEXTROSE 50% 50 ML SYRINGE IV PRN (22:45)
[2022-06-16] MEDS ORDERED: oxyCODONE HCL IR 5 MG TAB (IMMEDIATE RELEASE) PO PRN (22:45)
[2022-06-16] MEDS ORDERED: ACETAMINOPHEN 325 MG TAB PO PRN (22:45)
[2022-06-16] MEDS ORDERED: GLUCOSE 40% GEL 15 GM TUBE PO PRN (22:45)
[2022-06-16] MEDS ORDERED: GLUCOSE 10 TAB/TUBE PO PRN (22:45)
[2022-06-16] MEDS ORDERED: GLUCAGON FOR INJ 1 MG VIAL SQ PRN (22:45)
[2022-06-16] MEDS ORDERED: PROMETHAZINE HCL 12.5 MG in SODIUM CHLORIDE 0.9% 50 ML IV PRN (22:45)
[2022-06-16] MEDS ORDERED: CARBOHYDRATES FOR HYPOGLYCEMIA PO PRN (22:45)
[2022-06-16] MEDS ORDERED: MoRPHine SULFATE 4 MG/ML 1 ML CARP\\VIAL IV PRN (22:45)
[2022-06-16] MEDS ORDERED: DICLOFENAC SOD 1% GEL 100 GM TUBE EXT PRN (22:45)
[2022-06-17] MEDS: CEFEPIME 2,000 MG in SYRINGE 0 ML IV SCH ×3 (01:34→18:09)
[2022-06-17 06:37] LABS: Basophils # (auto) 0.08 K/uL (0-0.2); Basophils % (auto) 0.9 %; Eosinophils # (auto) 0.41 K/uL (0-0.50); Eosinophils % (auto) 4.7 %; Hematocrit (blood only) 36.7 % (42.0-52.0); Hemoglobin 11.7 g/dl (14.0-18.0); Immature Granulocytes # (auto) 0.03 K/uL (0.01-0.20); Immature Granulocytes % (auto) 0.3 %; Lymphocytes # (auto) 2.04 K/uL (1.2-3.4); Lymphocytes % (auto) 23.2 %; Mean Corpuscular Hemoglobin 24.9 pg (25.0-34.0); Mean Corpuscular Hgb Conc 31.9 g/dL (32.0-36.0); Mean Corpuscular Volume 78.3 fL (80.0-100.0); Mean Platelet Volume 11.4 fL (9.4-12.4); Neutrophils # (auto) 5.54 K/uL (1.40-6.50); Neutrophils % (auto) 62.9 %; Platelet Count 311 K/uL (130-400); RDW Coefficient of Variation 19.1 % (11.5-14.5); RDW Standard Deviation 53.4 fL (36.4-46.3); Red Blood Count 4.69 M/uL (4.70-6.10)
[2022-06-17 06:51] LABS: Prothrombin Time 30.1 Seconds (9.0-12.0)
[2022-06-17 07:07] LABS: Calcium 9.5 mg/dl (8.5-10.1)
[2022-06-17 07:13] LABS: BUN Creatinine Ratio 21.5 (10-20); Creatinine Clr Calc Pharmacy 181.9 ml/min; Est GFR (African American) 125.2 ml/min
--- NOTE | 2022-06-17 07:55 | CT Scan Report ---
CT tib/fib RT w con HISTORY: Right lower leg swelling TECHNIQUE: Multiaxial CT images of the right lower leg were performed following the intravenous admin istration of contrast and reformatted in the sagittal and coronal planes. COMPARISON STUDY: None. FINDINGS: Mild skin thickening and subcutaneous edema seen within the right lower leg. This is most p ronounced distally. No loculated fluid collections to suggest an abscess. Trace right knee effusion w ith tricompartmental osteoarthritis. No radiopaque foreign bodies. No fracture or dislocation within the right lower leg. No evidence for osteomyelitis. Approximately 50% narrowing within the proximal p opliteal artery with a probable small focal dissection. The remaining right calf arteries are patent. IMPRESSION: 1. Skin thickening and subcutaneous edema within the right lower leg. No evidence for an abscess. 2. No osteomyelitis right lower leg. 3. Approximately 50% narrowing within the proximal popliteal artery with a probable small focal disse ction. ACT 112: Negative or not required by law. Electronically signed by: Joe Bravo M.D. 06/17/2022 7:54 AM
[2022-06-17] MEDS: DOXYCYCLINE HYCLATE 100 MG CAP PO SCH ×2 (08:14→20:23)
[2022-06-17] MEDS: GABAPENTIN 600 MG TAB PO SCH ×3 (08:15→20:23)
[2022-06-17] MEDS: METOPROLOL SUCC 50MG EXT REL TAB PO SCH (08:15)
[2022-06-17] MEDS: ATORVASTATIN 40 MG TAB PO SCH (08:15)
[2022-06-17] MEDS: lisinopril 40 MG TAB PO SCH (08:15)
[2022-06-17] MEDS: CLOPIDOGREL BISULFATE 75 MG TAB PO SCH (08:15)
[2022-06-17] MEDS: NICOTINE 21 MG/24 HR TDSY TD SCH (08:16)
[2022-06-17] MEDS: LANTUS PER UNIT CHARGE SQ SCH ×2 (08:53→20:29)
[2022-06-17] MEDS ORDERED: INSULIN ASPART PER UNIT SC SCH (11:30)
[2022-06-17] MEDS: INSULIN ASPART PER UNIT SQ SCH ×2 (13:08→18:06)
--- NOTE | 2022-06-17 14:32 | Hospitalist Progress Note ---
Date of Service June 17, 2022 Assessment & Plan (1) Cellulitis: Plan 56-year-old male with PMH of HTN, HLD, PSVT/PAT, valvular heart disease [mild MR/TR], PVD on Coumadin, MEETA, DM 2 insulin requiring, chronic anemia [baseline hemoglobin of 11], ongoing tobacco abuse presented with complaint of failure of outpatient therapy for his lower extremity cellulitis. No recollection of trauma. No fever or chills. Was on Keflex course as an outpatient. He is being managed for the following: BLE cellulitis, failure of outpatient therapy H/o PVD and Diabetic Neuropathy/ Iliac stenosis w/ toe ulceration Patient reported painful RLE swelling 2 weeks ago [employer], was started on Keflex, did not see improvement/instead was worsening. On exam on day 1 of inpatient, his both lower extremity had erythema/warmth/tenderness. Right greater than left. Of note, patient was evaluated by vascular surgery in his previous admission in February 2022 for his PVD, recommendation was anticoagulation. Patient was started on Lovenox and Coumadin with a goal to transition to Coumadin alone. Admitting BLE arterial doppler: 1. Moderate to extensive plaque within the bilateral lower extremities. Hemodynamically significant stenosis within the mid right superficial femoral artery with occlusion versus trace flow within the distal right superficial femoral artery. Dampened, monophasic flow within the right calf vessels. 2. Biphasic and triphasic waveforms within the left lower extremity. Overall, flow improved within the left calf vessels since ultrasound of February 24, 2022. Admitting RLE CT: 1. Skin thickening and subcutaneous edema within the right lower leg. No evidence for an abscess. 2. No osteomyelitis right lower leg. 3. Approximately 50% narrowing within the proximal popliteal artery with a probable small focal dissection. WBC downtrending, patient afebrile. Continue with cefepime / and doxy /. Patient reports improving RLE pain/swelling. Maintain therapeutic INR. Vascular surgery consult, await recs. Exertional angina symptoms: Of weeks duration, has elected diagnostic cardiac cath contemplated next month. Ongoing tobacco abuse: Patient on home nicotine patch. Other chronic medical conditions: HTN, HLD, PSVT/PT, valvular heart disease, DM 2 insulin requiring, chronic anemia --- continue/resume home meds as able. Sliding scale insulin. DVT prophylaxis: On Coumadin, maintain therapeutic INR Admission and Anticipated Discharge Date Admission Date: June 16, 2022 Subjective Patient seen and examined at bedside as a follow-up of BLE cellulitis/failure of outpatient treatment in the setting of peripheral artery disease. Patient was sitting semiupright in bed, on room air, NAD, mildly irritated/upset that his Coumadin was held in the morning and his insulin is not according to his home regimen. Patient was explained that because of INR number being on the higher side, his Coumadin dose has been held, he demanded that his medication be given to him and he stated that he would not trust anybody here in this hospital for his medication management, he is here only for iv antibiotics because his pcp said so. Also reinforced that his insulin should be according to what he uses at home and not the sliding scale that we will be using per our pharmacy. Patient counseled in length the way hospital functions and takes over his medi cations control but he wanted to continue as it is and wanted to continue taking his Coumadin despite explaining the risks that the INR may be even higher tomorrow and which is a risk of bleeding. Pt became more upset/agitated towards the end of almost half hour conversation. Otherwise pt reports improvement in his BLE swelling/erythema/pain. Reports feeling better w/ regard to his cellulitis. Pt does have significant paresthesias on b/l leg and feet. Physical Exam Physical Exam: GENERAL: Alert and oriented x3. NAD, on RA. Obese Class III. HEENT: No pallor, no icterus. Pupils equal, round and reactive to light. Oral mucosa moist. NECK: No JVD, no neck masses. HEART: S1 and S2 heard. Regular rate and rhythm. No murmur, no gallop. RESPIRATORY SYSTEM: Normal AP diameter. No accessory muscle use. No wheezing, no crackles. ABDOMEN: Soft, bowel sounds present, nontender, no distention. CENTRAL NERVOUS SYSTEM: No facial droop. Speech is clear. Obeys simple commands. Moves extremities. EXTREMITIES: BLE erythema/warmth/tenderness of distal leg, and foot; pt reports improivng. Left 4th toe w/ scab. Left 2nd toe more erythematous/swollen compared to others. Results & Data Results & Data ([facility]) Vital Signs (Past 12 Hours) Vital Signs Temp Pulse Resp BP Pulse Ox O2 Del Method 06/17/22 07:30 Room Air 06/17/22 07:39 36.5 C 74 18 148/80 H 95 Room Air (1) Cellulitis Laterality: right Site of cellulitis: extremity Site of cellulitis of extremity: lower extremity Qualified Code(s): L03.115 - Cellulitis of right lower limb
[2022-06-17] MEDS ORDERED: INSULIN ASPART PER UNIT SQ SCH (16:30)
[2022-06-17] MEDS: WARFARIN SOD 7.5 MG TAB PO SCH (16:40)
[2022-06-18] MEDS: CEFEPIME 2,000 MG in SYRINGE 0 ML IV SCH ×3 (03:11→17:34)
[2022-06-18 06:16] LABS: Hematocrit (blood only) 37.6 % (42.0-52.0); Hemoglobin 12.2 g/dl (14.0-18.0); Mean Corpuscular Hemoglobin 25.3 pg (25.0-34.0); Mean Corpuscular Hgb Conc 32.4 g/dL (32.0-36.0); Mean Platelet Volume 11.5 fL (9.4-12.4); Platelet Count 293 K/uL (130-400); RDW Coefficient of Variation 19.5 % (11.5-14.5); RDW Standard Deviation 53.5 fL (36.4-46.3); Red Blood Count 4.82 M/uL (4.70-6.10); White Blood Count 7.85 K/ul (4.8-10.8)
[2022-06-18 06:27] LABS: BUN Creatinine Ratio 23.6 (10-20); Calcium 9.7 mg/dl (8.5-10.1); Creatinine Clr Calc Pharmacy 164.2 ml/min; Est GFR (Non-African American) 103.6 ml/min; Magnesium 1.6 mg/dl (1.7-2.4); Potassium 3.9 mmol/L (3.5-5.1)
[2022-06-18 06:47] LABS: Prothrombin Time 20.8 Seconds (9.0-12.0)
[2022-06-18] MEDS: DOXYCYCLINE HYCLATE 100 MG CAP PO SCH ×2 (08:02→20:55)
[2022-06-18] MEDS: GABAPENTIN 600 MG TAB PO SCH ×3 (08:02→20:55)
[2022-06-18] MEDS: ATORVASTATIN 40 MG TAB PO SCH (08:02)
[2022-06-18] MEDS: METOPROLOL SUCC 50MG EXT REL TAB PO SCH (08:03)
[2022-06-18] MEDS: lisinopril 40 MG TAB PO SCH (08:03)
[2022-06-18] MEDS: CLOPIDOGREL BISULFATE 75 MG TAB PO SCH (08:03)
[2022-06-18] MEDS: NICOTINE 21 MG/24 HR TDSY TD SCH (08:05)
[2022-06-18] MEDS: LANTUS PER UNIT CHARGE SQ SCH ×2 (08:13→20:57)
[2022-06-18] MEDS: INSULIN ASPART PER UNIT SQ SCH ×3 (08:13→17:31)
[2022-06-18] MEDS: MAGNESIUM OXIDE 400 MG TAB PO SCH ×2 (08:19→20:56)
--- NOTE | 2022-06-18 10:09 | Consultation ---
Date of Consultation June 18, 2022 Assessment & Plan (1) PVD (peripheral vascular disease): This point he has no claudication or tissue loss in the lower extremities. He does have pain in his left foot which is to palpation and not attributed to arterial disease. I would recommend an x-ray of his foot to make sure there are no occult fractures present. Cellulitis of the right lower extremity is improving with antibiotics. Even though his waveforms are monophasic they are fairly decent and without symptoms do not require any intervention at this point. We will see him as an outpatient for follow-up in the future. Thank you very much for letting us participate in the care of this patient. History of Present Illness Reason for Consultation: Peripheral vascular occlusive disease Attending Physician: Dayana Araujo MD History of Present Illness This is a 56-year-old male who was admitted with right leg cellulitis and extreme swelling in the right lower extremity. He does have known peripheral occlusive disease of both lower extremity arterial systems. He denies any claudication of his lower extremities. Denies any ulcerations. He denies any rest pain. He does claim to have pain in his left fourth second and toes as well as the top of his foot which is not at rest but only with palpation of the foot. Since he was admitted he claims that the swelling has markedly gone down as well as the redness. He did have noninvasive testing which shows monophasic waveforms from the mid thigh distally other right lower extremity. He did have an arteriogram in the left lower extremity in the fall which showed nothing that required intervention. He does have a history of chest pain and irregular heartbeats. He is scheduled for heart catheterization next month. Allergies Allergy/AdvReac Type Severity Reaction Status Date / Time metformin AdvReac Severe SEVERE Verified 06/16/22 19:44 DIARRHEA Home Medications Medication Instructions Recorded Confirmed Type atorvastatin 40 mg tablet 40 mg PO QAM 06/16/22 06/16/22 History cephalexin 500 mg capsule 500 mg PO BID 06/16/22 06/16/22 History clopidogrel 75 mg tablet 75 mg PO QAM 06/16/22 06/16/22 History diclofenac sodium 1 % topical gel 1 ea topical QID PRN Pain 06/16/22 06/16/22 History enoxaparin 150 mg/mL subcutaneous 150 mg subcut UD .upcoming 06/16/22 06/16/22 History syringe procedure gabapentin 600 mg tablet 600 mg PO TID 06/16/22 06/16/22 History insulin aspart U-100 100 unit/mL 6 - 10 unit subcut TIDWMEAL 06/16/22 06/16/22 History (3 mL) subcutaneous pen insulin glargine 100 unit/mL (3 40 unit subcut QAM 06/16/22 06/16/22 History mL) subcutaneous pen (Lantus Solostar U-100 Insulin) insulin glargine 100 unit/mL 12 unit subcut PM 06/16/22 06/16/22 History subcutaneous solution (Lantus U-100 Insulin) lisinopril 40 mg tablet 40 mg PO QAM 06/16/22 06/16/22 History metoprolol succinate 50 mg 50 mg PO QAM 06/16/22 06/16/22 History tablet,extended release 24 hr nicotine 21 mg/24 hr daily 1 patch topical DAILY 06/16/22 06/16/22 History transdermal patch tramadol 50 mg tablet 50 mg PO Q4 PRN Pain 06/16/22 06/16/22 History warfarin 10 mg tablet 15 - 20 mg PO DIRECTED 06/16/22 06/16/22 History Patient History Medical History Diabetic neuropathy HLD (hyperlipidemia) HTN (hypertension) Morbid obesity MEETA (obstructive sleep apnea) not on cpap or O2 T2DM (type 2 diabetes mellitus) Surgical History Hx of laminectomy L3-S1 Family History Other Cancer Diabetes Family history of blood clots Heart disease Social History Smoking Status: Current every day smoker Tobacco Type: Pipe and Cigars Cigarettes Per Day: 4; Second Hand Exposure: No; Hx Alcohol Use: Yes Alcohol type: beer Alcohol Intake Frequency Comment: rare Hx Substance Use: Yes Prescribed Medications: Marijuana Last Used Substance: Hours (ago) Last Used Substance Other:: last night Substance Use Type Other:: stated helps with his neuropathy pain Preferred Language: Russian Communication Ability: Effective Visual Impairment: Limited Hearing Ability: Hard of Hearing English Professor Required: No Beliefs That Will Affect Care: None marital status: marital status details: but currently going through divorce Current Living Situation: Spouse Current Living Situation Comment: pt states he and his are in the process of current occupational status: unemployed How many Children do You have: 2 How many Children do You have Comment: son is involved with care and able to assist with care as needed (son lives 30 minutes from pt) Other Information That Helps Us Care for You: No Feels Safe at Home: Yes Safety Concerns: Feels Safe At This Time Diet Comment: tries to pay attention to what he eats regarding diabetes. during the past year weight has: increased > 10 lbs Assistive Devices: Walker Review of Systems Review of Systems: All systems reviewed & are unremarkable except as noted in HPI & below Physical Exam Constitutional: WD/WN, vitals as above Respiratory: normal respiratory effort; no respiratory distress Auscultation: lungs clear to auscultation bilaterally Cardiovascular: Rate/Rhythm: regular rate and regular rhythm Vessels: femoral pulses present, posterior tibial pulses present (Nonpalpable bilateral) and dorsalis pedis pulses present (Nonpalpable bilaterally) Extremities: normal capillary refill and + edema (Mild edema of the right lower extremity) Gastrointestinal (Abdomen): Inspection/Auscultation: abdomen normal to inspection; abdomen not distended Percussion/Palpation: abdomen soft; abdomen nontender Musculoskeletal: no cyanosis or clubbing, extremities motor strength 5/5 Neurologic: CN's II-XI intact bilaterally and moves all extremities Psychiatric: Orientation: alert and oriented x 3 Results & Data ([facility]) Vital Signs (Past 12 Hours) Vital Signs Temp Pulse Pulse Resp BP Pulse Ox O2 Del Method 06/18/22 07:48 36.5 C 70 20 166/97 H 94 Room Air 06/18/22 07:06 36.4 C L 64 16 145/85 H 94 Room Air
--- NOTE | 2022-06-18 14:56 | Hospitalist Progress Note ---
Date of Service June 18, 2022 Assessment & Plan (1) Cellulitis: Plan 56-year-old male with PMH of HTN, HLD, PSVT/PAT, valvular heart disease [mild MR/TR], PVD on Coumadin, MEETA, DM 2 insulin requiring, chronic anemia [baseline hemoglobin of 11], ongoing tobacco abuse presented with complaint of failure of outpatient therapy for his lower extremity cellulitis. No recollection of trauma. No fever or chills. Was on Keflex course as an outpatient. He is being managed for the following: BLE cellulitis, failure of outpatient therapy H/o PVD and Diabetic Neuropathy/ Iliac stenosis w/ toe ulceration Patient reported painful RLE swelling 2 weeks ago [employer]ATCH WORK[employer], was started on Keflex, did not see improvement/instead was worsening. On exam on day 1 of inpatient, his both lower extremity had erythema/warmth/tenderness. Right greater than left. Of note, patient was evaluated by vascular surgery in his previous admission in February 2022 for his PVD, recommendation was anticoagulation. Patient was started on Lovenox and Coumadin with a goal to transition to Coumadin alone. Admitting BLE arterial doppler: 1. Moderate to extensive plaque within the bilateral lower extremities. Hemodynamically significant stenosis within the mid right superficial femoral artery with occlusion versus trace flow within the distal right superficial femoral artery. Dampened, monophasic flow within the right calf vessels. 2. Biphasic and triphasic waveforms within the left lower extremity. Overall, flow improved within the left calf vessels since ultrasound of February 24, 2022. Admitting RLE CT: 1. Skin thickening and subcutaneous edema within the right lower leg. No evidence for an abscess. 2. No osteomyelitis right lower leg. 3. Approximately 50% narrowing within the proximal popliteal artery with a probable small focal dissection. WBC downtrending, patient afebrile. Continue with cefepime / and doxy /. Patient reports improving RLE pain/swelling. Maintain therapeutic INR. Vascular surgery consult, appreciate recs. Exertional angina symptoms: Of weeks duration, has elected diagnostic cardiac cath contemplated next month. Ongoing tobacco abuse: Patient on home nicotine patch. Other chronic medical conditions: HTN, HLD, PSVT/PT, valvular heart disease, DM 2 insulin requiring, chronic anemia --- continue/resume home meds as able. Sliding scale insulin. DVT prophylaxis: On Coumadin, maintain therapeutic INR Dispo: pt/ot. Will c/w iv atb today, likely dc emery. Admission and Anticipated Discharge Date Admission Date: June 16, 2022 Subjective Patient seen and examined at bedside as a follow-up of BLE cellulitis/failure of outpatient treatment in the setting of peripheral artery disease. Patient was lying in bed, on room air, NAD, reports improving lower extremity cellulitis/redness/pain. Reports no new acute events overnight. Patient denies headache/dizziness/chest pain/sore throat/cough/belly pain/acute changes in his bowel or bladder habits. Reports feeling better w/ regard to his cellulitis. Pt does have significant paresthesias on b/l leg and feet. Physical Exam Physical Exam: GENERAL: Alert and oriented x3. NAD, on RA. Obese Class III. HEENT: No pallor, no icterus. Pupils equal, round and reactive to light. Oral mucosa moist. NECK: No JVD, no neck masses. HEART: S1 and S2 heard. Regular rate and rhythm. No murmur, no gallop. RESPIRATORY SYSTEM: Normal AP diameter. No accessory muscle use. No wheezing, no crackles. ABDOMEN: Soft, bowel sounds present, nontender, no distention. CENTRAL NERVOUS SYSTEM: No facial droop. Speech is clear. Obeys simple commands. Moves extremities. EXTREMITIES: BLE erythema/warmth/tenderness of distal leg, and foot; pt reports improivng. Left 4th toe w/ scab. Left 2nd toe more erythematous/swollen compared to others. --> improving erythema/swelling/tender/warmth. Results & Data Results & Data ([facility]) Vital Signs (Past 12 Hours) Vital Signs Temp Pulse Pulse Resp BP Pulse Ox O2 Del Method 06/18/22 14:51 37.1 C 98 H 16 156/75 H 95 Room Air 06/18/22 11:38 Room Air 06/18/22 07:48 36.5 C 70 20 166/97 H 94 Room Air 06/18/22 07:06 36.4 C L 64 16 145/85 H 94 Room Air (1) Cellulitis Laterality: right Site of cellulitis: extremity Site of cellulitis of extremity: lower extremity Qualified Code(s): L03.115 - Cellulitis of right lower limb
[2022-06-18] MEDS: WARFARIN SOD 10 MG TAB PO SCH (15:22)
[2022-06-19] MEDS: CEFEPIME 2,000 MG in SYRINGE 0 ML IV SCH ×3 (02:00→17:59)
[2022-06-19 07:06] LABS: INR 2.2 (0.9-1.1); Prothrombin Time 22.4 Seconds (9.0-12.0)
[2022-06-19] MEDS: lisinopril 40 MG TAB PO SCH (08:01)
[2022-06-19] MEDS: CLOPIDOGREL BISULFATE 75 MG TAB PO SCH (08:01)
[2022-06-19] MEDS: ATORVASTATIN 40 MG TAB PO SCH (08:01)
[2022-06-19] MEDS: METOPROLOL SUCC 50MG EXT REL TAB PO SCH (08:01)
[2022-06-19] MEDS: MAGNESIUM OXIDE 400 MG TAB PO SCH ×2 (08:01→20:50)
[2022-06-19] MEDS: DOXYCYCLINE HYCLATE 100 MG CAP PO SCH ×2 (08:02→20:50)
[2022-06-19] MEDS: GABAPENTIN 600 MG TAB PO SCH ×3 (08:02→20:50)
[2022-06-19] MEDS: NICOTINE 21 MG/24 HR TDSY TD SCH (08:34)
[2022-06-19] MEDS: LANTUS PER UNIT CHARGE SQ SCH ×2 (08:39→20:50)
[2022-06-19] MEDS: INSULIN ASPART PER UNIT SQ SCH ×3 (08:39→17:36)
[2022-06-19] MEDS: MAGNESIUM SULFATE / D5W 1 GM/100 ML BAG IV SCH ×2 (09:42→11:45)
--- NOTE | 2022-06-19 15:53 | Hospitalist Progress Note ---
Date of Service June 19, 2022 Assessment & Plan (1) Cellulitis: Plan 56-year-old male with PMH of HTN, HLD, PSVT/PAT, valvular heart disease [mild MR/TR], PVD on Coumadin, MEETA, DM 2 insulin requiring, chronic anemia [baseline hemoglobin of 11], ongoing tobacco abuse presented with complaint of failure of outpatient therapy for his lower extremity cellulitis. No recollection of trauma. No fever or chills. Was on Keflex course as an outpatient. He is being managed for the following: BLE cellulitis, failure of outpatient therapy H/o PVD and Diabetic Neuropathy/ Iliac stenosis w/ toe ulceration Patient reported painful RLE swelling 2 weeks ago [employer], was started on Keflex, did not see improvement/instead was worsening. On exam on day 1 of inpatient, his both lower extremity had erythema/warmth/tenderness. Right greater than left. Of note, patient was evaluated by vascular surgery in his previous admission in February 2022 for his PVD, recommendation was anticoagulation. Patient was started on Lovenox and Coumadin with a goal to transition to Coumadin alone. Admitting BLE arterial doppler: 1. Moderate to extensive plaque within the bilateral lower extremities. Hemodynamically significant stenosis within the mid right superficial femoral artery with occlusion versus trace flow within the distal right superficial femoral artery. Dampened, monophasic flow within the right calf vessels. 2. Biphasic and triphasic waveforms within the left lower extremity. Overall, flow improved within the left calf vessels since ultrasound of February 24, 2022. Admitting RLE CT: 1. Skin thickening and subcutaneous edema within the right lower leg. No evidence for an abscess. 2. No osteomyelitis right lower leg. 3. Approximately 50% narrowing within the proximal popliteal artery with a probable small focal dissection. WBC downtrending, patient afebrile. Continue with cefepime / and doxy /. Patient reports improving RLE pain/swelling. Maintain therapeutic INR. Vascular surgery consult, appreciate recs. Exertional angina symptoms: Of weeks duration, has elected diagnostic cardiac cath contemplated next month. Ongoing tobacco abuse: Patient on home nicotine patch. Other chronic medical conditions: HTN, HLD, PSVT/PT, valvular heart disease, DM 2 insulin requiring, chronic anemia --- continue/resume home meds as able. Sliding scale insulin. DVT prophylaxis: On Coumadin, maintain therapeutic INR Dispo: pt/ot. likely dc emery. Admission and Anticipated Discharge Date Admission Date: June 16, 2022 Subjective Patient seen and examined at bedside as a follow-up of BLE cellulitis/failure of outpatient treatment in the setting of peripheral artery disease. Patient was lying in bed, on room air, NAD, reports improving lower extremity ce llulitis/redness/pain but still not satisfied and wants to make sure it continues to improve before leaving hospital as he is concerned about his leg infection and upcoming elective cardiac cath. Reports no new acute events overnight. Patient denies headache/dizziness/chest pain/sore throat/cough/belly pain/acute changes in his bowel or bladder habits. Reports feeling better w/ regard to his cellulitis. Pt does have significant paresthesias on b/l leg and feet. Physical Exam Physical Exam: GENERAL: Alert and oriented x3. NAD, on RA. Obese Class III. HEENT: No pallor, no icterus. Pupils equal, round and reactive to light. Oral mucosa moist. NECK: No JVD, no neck masses. HEART: S1 and S2 heard. Regular rate and rhythm. No murmur, no gallop. RESPIRATORY SYSTEM: Normal AP diameter. No accessory muscle use. No wheezing, no crackles. ABDOMEN: Soft, bowel sounds present, nontender, no distention. CENTRAL NERVOUS SYSTEM: No facial droop. Speech is clear. Obeys simple commands. Moves extremities. EXTREMITIES: BLE erythema/warmth/tenderness of distal leg, and foot; pt reports improivng. Left 4th toe w/ scab. Left 2nd toe more erythematous/swollen compared to others. --> improving erythema/swelling/tender/warmth. Results & Data Results & Data ([facility]) Vital Signs (Past 12 Hours) Vital Signs Temp Pulse Resp BP Pulse Ox O2 Del Method 06/19/22 15:13 37.2 C 58 L 16 137/81 93 Room Air 06/19/22 08:00 Room Air 06/19/22 07:38 36.7 C 64 16 145/88 H 94 Room Air (1) Cellulitis Laterality: right Site of cellulitis: extremity Site of cellulitis of extremity: lower extremity Qualified Code(s): L03.115 - Cellulitis of right lower limb
[2022-06-19] MEDS: WARFARIN SOD 7.5 MG TAB PO SCH (16:23)
[2022-06-20] MEDS: CEFEPIME 2,000 MG in SYRINGE 0 ML IV SCH ×3 (02:36→17:23)
[2022-06-20 06:53] LABS: Hematocrit (blood only) 40.5 % (42.0-52.0); Hemoglobin 12.6 g/dl (14.0-18.0); Mean Corpuscular Hemoglobin 25.1 pg (25.0-34.0); Mean Corpuscular Hgb Conc 31.1 g/dL (32.0-36.0); Mean Corpuscular Volume 80.7 fL (80.0-100.0); Mean Platelet Volume 11.5 fL (9.4-12.4); Platelet Count 266 K/uL (130-400); RDW Coefficient of Variation 20.1 % (11.5-14.5); RDW Standard Deviation 57.5 fL (36.4-46.3); Red Blood Count 5.02 M/uL (4.70-6.10); White Blood Count 9.47 K/ul (4.8-10.8)
[2022-06-20 07:04] LABS: BUN Creatinine Ratio 26.1 (10-20); Calcium 9.8 mg/dl (8.5-10.1); Creatinine Clr Calc Pharmacy 128.5 ml/min; Est GFR (African American) 106.6 ml/min; Potassium 3.9 mmol/L (3.5-5.1)
[2022-06-20 07:28] LABS: INR 2.1 (0.9-1.1); Prothrombin Time 21.9 Seconds (9.0-12.0)
[2022-06-20] MEDS: CLOPIDOGREL BISULFATE 75 MG TAB PO SCH (08:28)
[2022-06-20] MEDS: lisinopril 40 MG TAB PO SCH (08:28)
[2022-06-20] MEDS: ATORVASTATIN 40 MG TAB PO SCH (08:28)
[2022-06-20] MEDS: NICOTINE 21 MG/24 HR TDSY TD SCH (08:28)
[2022-06-20] MEDS: GABAPENTIN 600 MG TAB PO SCH ×3 (08:29→21:25)
[2022-06-20] MEDS: METOPROLOL SUCC 50MG EXT REL TAB PO SCH (08:29)
[2022-06-20] MEDS: DOXYCYCLINE HYCLATE 100 MG CAP PO SCH ×2 (08:29→21:25)
[2022-06-20] MEDS: INSULIN ASPART PER UNIT SQ SCH ×3 (08:37→17:29)
[2022-06-20] MEDS: LANTUS PER UNIT CHARGE SQ SCH ×2 (08:40→21:25)
[2022-06-20] MEDS: WARFARIN SOD 7.5 MG TAB PO SCH (15:52)
--- NOTE | 2022-06-20 16:23 | Hospitalist Progress Note ---
Date of Service June 20, 2022 Assessment & Plan (1) Cellulitis: Plan 56 yo male with PMH of HTN, HLD, PSVT/PAT, valvular heart disease [mild MR/TR], PVD on Coumadin, MEETA, DM 2 insulin requiring, chronic anemia [baseline hemoglobin of 11], ongoing tobacco abuse presented with complaint of failure of outpatient therapy for his lower extremity cellulitis. No recollection of trauma. No fever or chills. Was on Keflex course as an outpatient. He is being managed for the following: BLE cellulitis, failure of outpatient therapy H/o PVD and Diabetic Neuropathy/ Iliac stenosis w/ toe ulceration Patient reported painful RLE swelling 2 weeks ago [employer] CUT[employer], was started on Keflex, did not see improvement/instead was worsening. On exam on day 1 of inpatient, his both lower extremity had erythema/warmth/tenderness. Right greater than left. Of note, patient was evaluated by vascular surgery in his previous admission in February 2022 for his PVD, recommendation was anticoagulation. Patient was started on Lovenox and Coumadin with a goal to transition to Coumadin alone. Admitting BLE arterial doppler: 1. Moderate to extensive plaque within the bilateral lower extremities. Hemodynamically significant stenosis within the mid right superficial femoral artery with occlusion versus trace flow within the distal right superficial femoral artery. Dampened, monophasic flow within the right calf vessels. 2. Biphasic and triphasic waveforms within the left lower extremity. Overall, flow improved within the left calf vessels since ultrasound of February 24, 2022. Admitting RLE CT: 1. Skin thickening and subcutaneous edema within the right lower leg. No evidence for an abscess. 2. No osteomyelitis right lower leg. 3. Approximately 50% narrowing within the proximal popliteal artery with a probable small focal dissection. WBC downtrending, patient afebrile. Continue with cefepime / and doxy /. Patient reports improving RLE pain/swelling. Maintain therapeutic INR. Vascular surgery consult, appreciate recs. Exertional angina symptoms: Of weeks duration, has elected diagnostic cardiac cath contemplated this month. Ongoing tobacco abuse: Patient on home nicotine patch. Other chronic medical conditions: HTN, HLD, PSVT/PT, valvular heart disease, DM 2 insulin requiring, chronic anemia --- continue/resume home meds as able. Sliding scale insulin. DVT prophylaxis: On Coumadin, maintain therapeutic INR Dispo: pt/ot. likely dc [place]. Admission and Anticipated Discharge Date Admission Date: June 16, 2022 Subjective Patient seen and examined at bedside as a follow-up of BLE cellulitis/failure of outpatient treatment in the setting of peripheral artery disease. Patient was lying in bed, on room air, NAD, reports improving lower extremity cellulitis/redness/pain concerned and wants to make sure it continues to improve before leaving hospital as he is concerned about his leg infection and upcoming elective cardiac cath. Reports no new acute events overnight. Patient denies any fever, chills, headache/dizziness/chest pain/sore throat/cough/abd. pain/acute changes in his bowel or bladder habits. Reports feeling better w/ regard to his cellulitis. Pt does have significant paresthesias on b/l leg and feet. Review of Systems Review of Systems: All systems reviewed & are unremarkable except as noted in Subjective Physical Exam Physical Exam: GENERAL: Alert and oriented x3. NAD, on RA. Obese Class III. HEENT: No pallor, no icterus. Pupils equal, round and reactive to light. Oral mucosa moist. NECK: No JVD, no neck masses. HEART: S1 and S2 heard. Regular rate and rhythm. No murmur, no gallop. RESPIRATORY: Normal AP diameter. No accessory muscle use. No wheezing, no crackles. ABDOMEN: Soft, bowel sounds present, nontender, no distention, + obese NEURO: No facial droop. Speech is clear. Obeys simple commands. Moves extremities. EXTREMITIES: BLE erythema/warmth/tenderness of distal leg, and foot; pt reports improving. Left 4th toe w/ scab. Left 2nd toe more erythematous/swollen compared to others. --> improving erythema/swelling/tender/warmth. Results & Data Results & Data ([facility]) Vital Signs (Past 12 Hours) Vital Signs Temp Pulse Resp BP Pulse Ox O2 Del Method 06/20/22 15:13 37.1 C 77 16 145/84 H 95 Room Air 06/20/22 07:48 36.4 C L 64 16 151/83 H 94 Room Air Laboratory Results 06/20/22 06/20/22 06/20/22 Range/Units 11:44 08:06 05:43 WBC (4.8-10.8) K/ul RBC (4.70-6.10) M/uL Hgb (14.0-18.0) g/dl Hct (42.0-52.0) % MCV (80.0-100.0) fL MCH (25.0-34.0) pg MCHC (32.0-36.0) g/dL RDW Std Deviation (36.4-46.3) fL RDW Coeff of Mercedes (11.5-14.5) % Plt Count (130-400) K/uL MPV (9.4-12.4) fL PT (9.0-12.0) Seconds INR (0.9-1.1) Sodium 137 (136-145) mmol/L Potassium 3.9 (3.5-5.1) mmol/L Chloride 106 (98-107) mmol/L Carbon Dioxide 26 (21-32) mmol/L Anion Gap 5 (3-11) BUN 24 H (6-23) mg/dl Creatinine 0.92 (0.6-1.4) mg/dl Est Cr Clr Drug Dosing 128.5 ml/min Est GFR ( Amer) 106.6 ml/min Est GFR (Non-Af Amer) 92.0 ml/min BUN/Creatinine Ratio 26.1 H (10-20) Glucose 124 H (70-99(Fasting)) mg/dl POC Glucose 131 H 125 H (70-99) mg/dl Calcium 9.8 (8.5-10.1) mg/dl 06/20/22 06/20/22 06/19/22 Range/Units 05:43 05:43 20:30 WBC 9.47 (4.8-10.8) K/ul RBC 5.02 (4.70-6.10) M/uL Hgb 12.6 L (14.0-18.0) g/dl Hct 40.5 L (42.0-52.0) % MCV 80.7 (80.0-100.0) fL MCH 25.1 (25.0-34.0) pg MCHC 31.1 L (32.0-36.0) g/dL RDW Std Deviation 57.5 H (36.4-46.3) fL RDW Coeff of Mercedes 20.1 H (11.5-14.5) % Plt Count 266 (130-400) K/uL MPV 11.5 (9.4-12.4) fL PT 21.9 H (9.0-12.0) Seconds INR 2.1 H (0.9-1.1) Sodium (136-145) mmol/L Potassium (3.5-5.1) mmol/L Chloride (98-107) mmol/L Carbon Dioxide (21-32) mmol/L Anion Gap (3-11) BUN (6-23) mg/dl Creatinine (0.6-1.4) mg/dl Est Cr Clr Drug Dosing ml/min Est GFR ( Amer) ml/min Est GFR (Non-Af Amer) ml/min BUN/Creatinine Ratio (10-20) Glucose (70-99(Fasting)) mg/dl POC Glucose 163 H (70-99) mg/dl Calcium (8.5-10.1) mg/dl 06/19/22 Range/Units 17:15 WBC (4.8-10.8) K/ul RBC (4.70-6.10) M/uL Hgb (14.0-18.0) g/dl Hct (42.0-52.0) % MCV (80.0-100.0) fL MCH (25.0-34.0) pg MCHC (32.0-36.0) g/dL RDW Std Deviation (36.4-46.3) fL RDW Coeff of Mercedes (11.5-14.5) % Plt Count (130-400) K/uL MPV (9.4-12.4) fL PT (9.0-12.0) Seconds INR (0.9-1.1) Sodium (136-145) mmol/L Potassium (3.5-5.1) mmol/L Chloride (98-107) mmol/L Carbon Dioxide (21-32) mmol/L Anion Gap (3-11) BUN (6-23) mg/dl Creatinine (0.6-1.4) mg/dl Est Cr Clr Drug Dosing ml/min Est GFR ( Amer) ml/min Est GFR (Non-Af Amer) ml/min BUN/Creatinine Ratio (10-20) Glucose (70-99(Fasting)) mg/dl POC Glucose 99 (70-99) mg/dl Calcium (8.5-10.1) mg/dl Medications Administered Current Inpatient Medications Acetaminophen (Acetaminophen 325 Mg Tab) 650 mg PO Q4H PRN PRN Reason: pain/fever Stop: 07/16/22 22:44 Atorvastatin Calcium (Atorvastatin 40 Mg Tab) 40 mg PO QAM [facility] Stop: 07/17/22 08:59 Last Admin: 06/20/22 08:28 Dose: 40 mg Clopidogrel Bisulfate (Clopidogrel Bisulfate 75 Mg Tab) 75 mg PO QAM [facility] Stop: 07/17/22 08:59 Last Admin: 06/20/22 08:28 Dose: 75 mg Dextrose (Dextrose 50% 50 Ml Syringe) 25 - 50 ml IV UD PRN; Protocol PRN Reason: Hypoglycemia Protocol Stop: 07/16/22 22:44 Diclofenac Sodium (Diclofenac Sod 1% Gel 100 Gm Tube) 2 gm EXT QID PRN; Protocol PRN Reason: Pain Stop: 07/16/22 22:44 Doxycycline Hyclate (Doxycycline Hyclate 100 Mg Cap) 100 mg PO BID [facility] Stop: 06/24/22 08:59 Last Admin: 06/20/22 08:29 Dose: 100 mg Gabapentin (Gabapentin 600 Mg Tab) 600 mg PO TID@0800,1200,2100 [facility] Stop: 07/17/22 07:59 Last Admin: 06/20/22 12:47 Dose: 600 mg Glucagon (Glucagon For Inj 1 Mg Vial) 1 mg SQ UD PRN; Protocol PRN Reason: Hypoglycemia Protocol Stop: 07/16/22 22:44 Glucose (Glucose 10 Tab/Tube) 4 - 8 tab PO UD PRN; Protocol PRN Reason: Hypoglycemia Treatment Stop: 07/16/22 22:44 Glucose (Glucose 40% Gel 15 Gm Tube) 15 - 30 gm PO UD PRN; Protocol PRN Reason: Hypoglycemia Protocol Stop: 07/16/22 22:44 Cefepime HCl 2,000 mg/ Syringe 20 mls @ 5 mls/min IV Q8H [facility]; Protocol Stop: 06/24/22 01:59 Last Admin: 06/20/22 09:52 Dose: 5 mls/min Promethazine HCl 12.5 mg/ (Sodium Chloride) 50.5 mls @ 202 mls/hr IV Q6H PRN PRN Reason: Nausea And Vomiting Stop: 07/16/22 22:44 Insulin Aspart (Insulin Aspart Per Unit) 6 - 10 units SQ AC [facility] Stop: 07/17/22 12:59 Last Admin: 06/20/22 12:50 Dose: 10 units Insulin Glargine (Lantus Per Unit Charge) 40 units SQ DAILY [facility] Stop: 07/17/22 08:59 Last Admin: 06/20/22 08:40 Dose: 40 units Insulin Glargine (Lantus Per Unit Charge) 12 units SQ HS [facility] Stop: 07/17/22 20:59 Last Admin: 06/19/22 20:50 Dose: 12 units Lisinopril (Lisinopril 40 Mg Tab) 40 mg PO QAM [facility] Stop: 07/17/22 08:59 Last Admin: 06/20/22 08:28 Dose: 40 mg Metoprolol Succinate (Metoprolol Succ 50mg Ext Rel Tab) 50 mg PO QAM [facility] Stop: 07/17/22 08:59 Last Admin: 06/20/22 08:29 Dose: 50 mg Miscellaneous (Remove Nicoderm Patch) 1 each N/A DAILY@0859 [facility] Stop: 07/17/22 08:58 Last Admin: 06/20/22 08:29 Dose: 1 each Miscellaneous (Carbohydrates For Hypoglycemia ) 15 - 30 gm PO UD PRN PRN Reason: Hypoglycemia Protocol Stop: 07/16/22 22:44 Morphine Sulfate (Morphine Sulfate 4 Mg/Ml 1 Ml Carp\Vial) 4 mg IV Q4H PRN PRN Reason: Pain Stop: 06/30/22 22:44 Last Admin: 06/19/22 02:23 Dose: 4 mg Nicotine (Nicotine 21 Mg/24 Hr Tdsy) 21 mg TD DAILY [facility] Stop: 07/17/22 08:59 Last Admin: 06/20/22 08:28 Dose: 21 mg Oxycodone HCl (Oxycodone Hcl Ir 5 Mg Tab (Immediate Release)) 5 - 10 mg PO QID PRN PRN Reason: Pain Stop: 06/30/22 22:44 Warfarin Sodium (Warfarin Sod 7.5 Mg Tab) 15 mg PO SuTuWeFrSa@1600 [facility] Stop: 07/17/22 15:59 Last Admin: 06/20/22 15:52 Dose: 15 mg Warfarin Sodium (Warfarin Sod 10 Mg Tab) 20 mg PO MoTh@1600 [facility] Stop: 07/18/22 15:59 Last Admin: 06/18/22 15:22 Dose: 20 mg (1) Cellulitis Laterality: right Site of cellulitis: extremity Site of cellulitis of extremity: lower extremity Qualified Code(s): L03.115 - Cellulitis of right lower limb
[2022-06-21] MEDS: CEFEPIME 2,000 MG in SYRINGE 0 ML IV SCH ×2 (02:09→10:25)
[2022-06-21 07:28] LABS: INR 2.3 (0.9-1.1); Prothrombin Time 23.5 Seconds (9.0-12.0)
[2022-06-21] MEDS: DOXYCYCLINE HYCLATE 100 MG CAP PO SCH (07:59)
[2022-06-21] MEDS: METOPROLOL SUCC 50MG EXT REL TAB PO SCH (07:59)
[2022-06-21] MEDS: CLOPIDOGREL BISULFATE 75 MG TAB PO SCH (07:59)
[2022-06-21] MEDS: GABAPENTIN 600 MG TAB PO SCH ×2 (07:59→11:17)
[2022-06-21] MEDS: ATORVASTATIN 40 MG TAB PO SCH (08:00)
[2022-06-21] MEDS: lisinopril 40 MG TAB PO SCH (08:00)
[2022-06-21] MEDS: NICOTINE 21 MG/24 HR TDSY TD SCH (08:00)
[2022-06-21] MEDS: INSULIN ASPART PER UNIT SQ SCH ×3 (08:36→15:37)
[2022-06-21] MEDS: LANTUS PER UNIT CHARGE SQ SCH (08:39)
[2022-06-21] MEDS ORDERED: ADVANCED PROBIOTIC 1250 MG CAPSULE PO SCH (10:30)
--- NOTE | 2022-06-21 10:40 | Discharge Summary ---
Date of Service June 21, 2022 Admission HPI Per Admitting Provider History obtained from patient and records. Medical history significant for hypertension, hyperlipidemia, PSVT/VT as per records, valvular heart disease (mild MR/TR ), PVD on Coumadin, MEETA, DM 2 insulin requiring, chronic anemia (baseline hemoglobin of 11 ), ongoing tobacco abuse. Last confinement February 2022 for left toe ulceration in the setting of iliac stenosis. Minimal iliac disease on angiogram. Vascular surgery recommended anticoagulation. Patient discharged on Lovenox Coumadin bridge therapy. 2 weeks ago, patient noted painful right lower leg swelling. No recollection of trauma. No fever, no chills. Usual exertional angina symptoms for which [facility] sales ambassador is contemplating elective cardiac catheterization next month at [facility]. Keflex course prescribed by PCP. Worsening swelling despite medication compliance. Zosyn administered at the ER. 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 Admission Exam Per Admitting Provider GENERAL: Comfortable, morbidly obese, no respiratory distress SKIN: Pallor, warm HEENT: Pale palpebral conjunctivae, no ptosis, dry buccal mucosa NECK : Supple, short neck, no tenderness CHEST : Decreased breath sounds, no tenderness HEART : RRR, no obvious murmurs ABDOMEN: Some distention, nontender EXTREMITIES : Tender LLE induration, chronic RLE venous stasis, no other conspicuous deformities noted NEUROLOGIC : Coherent, no facial asymmetry, no other gross focality Principal Diagnosis Right lower extremity cellulitis Discharge Exam GENERAL: Alert and oriented x3. NAD, on RA. Obese Class III. HEENT: No pallor, no icterus. Pupils equal, round and reactive to light. Oral mucosa moist. NECK: No JVD, no neck masses. HEART: S1 and S2 heard. Regular rate and rhythm. No murmur, no gallop. RESPIRATORY: Normal AP diameter. No accessory muscle use. No wheezing, no crackles. ABDOMEN: Soft, bowel sounds present, nontender, no distention, + obese NEURO: No facial droop. Speech is clear. Obeys simple commands. Moves extremities. EXTREMITIES: BLE erythema/warmth/tenderness of distal leg, and foot (improved). Discharge Data Allergies Allergy/AdvReac Type Severity Reaction Status Date / Time metformin AdvReac Severe SEVERE Verified 06/16/22 19:44 DIARRHEA Consultations 06/16/22 19:30 ED Decision to Admit Stat 06/16/22 21:22 Consult Vascular Surgery Routine Ordered Studies 06/16/22 16:28 US arterial duplex LE Stat FINDINGS: Moderate to extensive plaque is noted within the bilateral lower extremities. There is triphasic flow within the right common femoral artery. Elevated peak systolic velocity of 415 cm/s within the mid right superficial femoral artery suggests a stenosis. There is trace flow versus occlusion of the distal right superficial femoral artery with reconstitution. There is dampened, monophasic flow within the right posterior tibial, anterior tibial, peroneal and dorsalis pedis vessels. Biphasic and triphasic flow within the left lower extremity is noted. No flow is confidently identified within the left peroneal artery. Otherwise, flow within the left calf vessels has improved since ultrasound of February 24, 2022. Specifically, note is made of biphasic flow within the left popliteal, posterior tibial, anterior tibial and dorsalis pedis vessels. No elevated velocities within the left lower extremity were identified. IMPRESSION: 1. Moderate to extensive plaque within the bilateral lower extremities. Hemodynamically significant stenosis within the mid right superficial femoral artery with occlusion versus trace flow within the distal right superficial femoral artery. Dampened, monophasic flow within the right calf vessels. 2. Biphasic and triphasic waveforms within the left lower extremity. Overall, flow improved within the left calf vessels since ultrasound of February 24, 2022. 06/16/22 21:01 CT tib/fib RT w con Urgent FINDINGS: Mild skin thickening and subcutaneous edema seen within the right lower leg. This is most pronounced distally. No loculated fluid collections to suggest an abscess. Trace right knee effusion with tricompartmental osteoarthritis. No radiopaque foreign bodies. No fracture or dislocation within the right lower leg. No evidence for osteomyelitis. Approximately 50% narrowing within the proximal popliteal artery with a probable small focal dissection. The remaining right calf arteries are patent. IMPRESSION: 1. Skin thickening and subcutaneous edema within the right lower leg. No evidence for an abscess. 2. No osteomyelitis right lower leg. 3. Approximately 50% narrowing within the proximal popliteal artery with a probable small focal dissection. Hospital Course (1) Cellulitis: Plan 56 yo male with PMH of HTN, HLD, PSVT/PAT, valvular heart disease [mild MR/TR], PVD on Coumadin, MEETA, DM 2 insulin requiring, chronic anemia [baseline hemoglobin of 11], ongoing tobacco abuse presented with complaint of failure of outpatient therapy for his lower extremity cellulitis. No recollection of trauma. No fever or chills. Was on Keflex course as an outpatient. 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 On exam on day 1 of inpatient, his both lower extremity had erythema/warmth/tenderness. Right greater than left. Of note, patient was evaluated by vascular surgery in his previous admission in February 2022 for his PVD, recommendation was anticoagulation. Patient was started on Lovenox and Coumadin with a goal to transition to Coumadin alone. Admitting BLE arterial doppler: 1. Moderate to extensive plaque within the bilateral lower extremities. Hemodynamically significant stenosis within the mid right superficial femoral artery with occlusion versus trace flow within the distal right superficial femoral artery. Dampened, monophasic flow within the right calf vessels. 2. Biphasic and triphasic waveforms within the left lower extremity. Overall, flow improved within the left calf vessels since ultrasound of February 24, 2022. Admitting RLE CT: 1. Skin thickening and subcutaneous edema within the right lower leg. No evidence for an abscess. 2. No osteomyelitis right lower leg. 3. Approximately 50% narrowing within the proximal popliteal artery with a probable small focal dissection. WBC downtrending and normalized, patient afebrile. Continued with cefepime 06/17 and doxy / while inpt. Plan to DC on augmentin and doxy. PCP follow up on June 26. Patient reports improving RLE pain/swelling. Maintain therapeutic INR. Vascular surgery consult, appreciate recs. Exertional angina symptoms: Of weeks duration, has elected diagnostic cardiac cath contemplated this month. Ongoing tobacco abuse: Patient on home nicotine patch. Other chronic medical conditions: HTN, HLD, PSVT/PT, valvular heart disease, DM 2 insulin requiring, chronic anemia --- continue/resume home meds as able. Sliding scale insulin. DVT prophylaxis: On Coumadin, maintain therapeutic INR Dispo: Plan to DC home w/ PCP follow up Total Time Total Time Spent Total Time Spent (In Minutes): 40 Discharge Plan Discharge Items Patient Disposition: Home - Self-Care Reason For Visit: RLE CELLULITIS Discharge Diagnosis: Right lower extremity cellulitis Activity: Per Instructions section Non-emergency contact: Primary Care Provider Call non-emergency contact if: you have any medication questions and your symptoms worsen Follow-up/Referrals: Julio César Pulliam DO [Primary Care Provider] - (Date & Time 06/26/2022 11:20 AM Provider Julio César Pulliam DO Department [facility] ) Diet: Carb Count or DM1 and Heart Healthy Addtl Attending Provider Instructions: Follow-up with your primary care physician, the appointment was scheduled for you for June 26. Finish antibiotic treatment with Augmentin and doxycycline, unless further advised by your primary care physician. Recommend taking probiotics, while on antibiotic to prevent any stomach upsets. Pending Studies at Discharge: Yes Studies:: final blood cultx Stand-Alone Forms: My [facility], Smoking Cessation Medications and DC Order Prescriptions: New doxycycline hyclate 100 mg Capsule 100 mg PO BID 9 Days Qty: 18 0RF amoxicillin-pot clavulanate 875-125 mg tablet 1 tab PO BID 9 Days Qty: 18 0RF Continued warfarin 10 mg tablet 15 - 20 mg PO DIRECTED Rx Instructions: as directed by anticoagulation clinic nicotine 21 mg/24 hr patch 24 hour 1 patch topical DAILY atorvastatin 40 mg tablet 40 mg PO QAM gabapentin 600 mg tablet 600 mg PO TID Rx Instructions: Take am, noon, hs insulin glargine [Lantus U-100 Insulin] 100 unit/mL Solution 12 unit SUBCUT PM metoprolol succinate 50 mg tablet extended release 24 hr 50 mg PO QAM clopidogrel 75 mg tablet 75 mg PO QAM tramadol 50 mg tablet 50 mg PO Q4 PRN (Reason: Pain) enoxaparin 150 mg/mL Syringe 150 mg SUBCUT UD Rx Instructions: use to bridge for upcoming procedure lisinopril 40 mg tablet 40 mg PO QAM insulin aspart U-100 100 unit/mL (3 mL) insulin pen 6 - 10 unit SUBCUT TIDWMEAL Rx Instructions: According to salud eatosmany and ss insulin glargine [Lantus Solostar U-100 Insulin] 100 unit/mL (3 mL) insulin pen 40 unit SUBCUT QAM diclofenac sodium 1 % gel 1 ea TOPICAL QID PRN (Reason: Pain) Discontinued cephalexin 500 mg capsule 500 mg PO BID Rx Instructions: stop 05/28/2022 Discharge Orders: Discharge Order (Routine); Ordered 06/21/22 Ordered By: Prince Martin Admission Data Admit Date/Time: 06/16/22 21:17 Attending Provider: Prince Martin Admit Provider: Jorge Vergara Primary Care Provider: Julio César Pulliam Other Providers: Simon Weston ; Jorge Vergara ; Dayana Araujo
[2022-06-21] MEDS: WARFARIN SOD 10 MG TAB PO SCH (15:00)
== END 2022-06-21 17:00 | disposition home or self-care (01) | DRG 603 ==
LOC: ED 15:17 → 3E 21:17 → SUATTDRO 21:17 → 3E 22:19

== ENCOUNTER 2023-09-16 21:21 | Inpatient (IN) ==
--- OUTSIDE RECORDS SUMMARY | 2023-09-16 21:27 | External Medical Summary | Summary of Care ---
Author Name Unknown Organization [facility] Address [address] [place] [address] Phone [phone] Care Team Providers Care Scullion Chief Name Role Phone Jamal Velazquez MD Primary Care Provider [phone] Reason for Visit * Reason Comments Medication Refill Encounter Details Date Type Department Care Team (Late st Contact Info) Description [address] [facility] [address] [place] [address] Jamal Velazqeuz MD [address] [place] [address] Mild intermittent reactive airway disease without complication; Peripheral vascular disease, unspecified (HCC); Encounter for monitoring Coumadin therapy; Iliac artery stenosis, right (HCC); Type 2 diabetes mellitus with hemoglobin A1c goal of less than 7.0% ([facility]) Allergies Active Allergy Reactions Criticality Noted Date Comments Metformin Diarrhea 05/16/2017 documented as of this encounter (statuses as of 09/10/2023) Medications Medication Sig Dispensed Refills Start Date End Date Status D-Care Glucometer w/Device KitIndications:Typ e 2 diabetes mellitus without complication, with long-term current use of insulin (HCC) Use as directed . Use as directed for home glucose testing 4 times daily 1 Kit 2 Active LancetsIndications :Type 2 diabetes mellitus without complication, with long-term current use of insulin (HCC) Use as directed. 100 Each 11 2 Active BD Pen Needle Molly U/F 32G X 4 MM (Insulin Pen Needle)Indications :Type 2 diabetes mellitus with hemoglobin A1c goal of less than 7.0% ([facility]) Use to inject insulin 6 times daily 300 Each 5 3 Active Nitroglycerin 0.4 MG Sublingual Tablet Sublingual (Nitrostat)Indicat ions:Angina pectoris ([facility]) Place 1 Tablet under the tongue as needed for Pain, Chest. May repeat 3 times. If chest pain continues, call 911. 25 Tablet 3 Active NovoLOG FlexPen 100 UNIT/ML Subcutaneous Solution Pen-injector (insulin aspart)Indications :Type 2 diabetes mellitus with hyperglycemia, with long-term current use of insulin ([facility]),Type 2 diabetes mellitus with peripheral vascular disease ([facility]),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 ([facility]) Inject 10 Units under the skin in the morning, at noon, and in the evening. Inject with meals. Units as per sliding scale. 45 mL 3 3 Active Ammonium Lactate 12 % External Cream (Lac-Hydrin)Indica tions:Venous stasis dermatitis of both lower extremities Apply topically to affected area 2 times a day. To affected area. 385 g 3 Active Glucose Blood In Vitro StripIndications:T ype 2 diabetes mellitus without complication, with long-term current use of insulin ([facility]) Use as directed 4 times a day. 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 28 Patch 4 Active Metoprolol Succinate ER 50 MG Oral Tablet Extended Release 24 Hour (toPROL XL)Indications:ASC VD (arteriosclerotic cardiovascular disease) Take 1 Tablet by mouth in the morning. 90 Tablet 3 4 Active Isosorbide Mononitrate ER 30 MG Oral Tablet Extended Release 24 Hour (Imdur)Indications :ASCVD (arteriosclerotic cardiovascular disease) Take 1 Tablet by mouth in the morning. 90 Tablet 3 4 Active Furosemide 20 MG Oral Tablet (Lasix) Take one tablet up to three days per week as needed for leg swelling 16 Tablet 5 4 Active Clopidogrel Bisulfate 75 MG Oral Tablet (Plavix)Indication s:Type 2 diabetes mellitus with diabetic peripheral angiopathy and gangrene, with long-term current use of insulin (HCC) Take 1 Tablet by mouth in the morning. 90 Tablet 2 4 Active DULoxetine HCl 30 MG Oral Capsule Delayed Release Particles (Cymbalta)Indicati ons:Spinal stenosis of lumbar region with neurogenic claudication Take 2 capsules by mouth once daily 180 Capsule 2 4 Active Lisinopril 40 MG Oral TabletIndications: HTN, goal below 130/80 Take 1 Tablet by mouth in the morning. 90 Tablet 2 4 Active Atorvastatin Calcium 40 MG Oral Tablet (Lipitor) Take 1 Tablet by mouth in the morning. 90 Tablet 2 4 Active Pregabalin 75 MG Oral Capsule (Lyrica)Indication s:Spinal stenosis of lumbar region with neurogenic claudication Take 1 Capsule by mouth in the morning and 1 Capsule before bedtime. 60 Capsule 5 4 Active Doxycycline Hyclate 100 MG Oral CapsuleIndications :Skin lesion Take 1 Capsule by mouth in the morning and 1 Capsule before bedtime for 10 days until gone. 20 Capsule 4 09/14/19 24 Active Dexcom G7 Sensor Use 1 sensor every 10 days 3 Each 11 4 Active Albuterol Sulfate HFA 108 (90 Base) MCG/ACT Inhalation Aerosol SolutionIndication s:Mild intermittent reactive airway disease without complication Inhale 2 Puffs by mouth every 6 hours as needed for Cough, Shortness of Breath or Wheezing. 18 g 1 4 Active Warfarin Sodium 10 MG Oral Tablet (Coumadin)Indicati ons:Peripheral vascular disease, unspecified (HCC),Encounter for monitoring Coumadin therapy,Iliac artery stenosis, right (HCC) Take 1 and 1/2 to 2 Tablets by mouth daily. As directed by anticoagulation clinic 180 Tablet 1 4 Active Ozempic (0.25 or 0.5 MG/DOSE) 2 MG/3ML Solution Pen-injector (Semaglutide(0.25 or 0.5MG/DOS))Indicat ions:Type 2 diabetes mellitus with hemoglobin A1c goal of less than 7.0% (HCC) Inject 0.5 mg under the skin once a week. 3 mL 4 Active Albuterol Sulfate HFA 108 (90 Base) MCG/ACT Inhalation Aerosol SolutionIndication s:Mild intermittent reactive airway disease without complication Inhale 2 Puffs by mouth every 6 hours as needed for Cough, Shortness of Breath or Wheezing. 18 g 1 4 09/07/19 24 Discontinu ed(Refill) Ferrous Sulfate 325 (65 Fe) MG Oral Tablet (FeroSul)Indicatio ns:Iron deficiency anemia, unspecified iron deficiency anemia type Take 1 Tablet by mouth in the morning and 1 Tablet before bedtime. 60 Tablet 1 4 09/07/19 24 Discontinu ed(Refill) Warfarin Sodium 10 MG Oral Tablet (Coumadin)Indicati ons:Peripheral vascular disease, unspecified (HCC),Encounter for monitoring Coumadin therapy,Iliac artery stenosis, right (HCC) Take 1.5- 2 tablets by mouth daily. Dosage adjustment by anticoagulation clinic. Patient aware of the tablet strength change. 60 Tablet 4 09/07/19 24 Discontinu ed(Refill) Ozempic (0.25 or 0.5 MG/DOSE) 2 MG/3ML Solution Pen-injector (Semaglutide(0.25 or 0.5MG/DOS))Indicat ions:Type 2 diabetes mellitus with hemoglobin A1c goal of less than 7.0% (HCC) Inject 0.25 mg under the skin once a week. 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 Offered pharmacologic interventions. Not interested at this time. Super obese 07/02/2017 Overview: Per Obesity protocol #1 PVD (peripheral vascular disease) 06/14/2017 Type 2 diabetes mellitus wit h hemoglobin A1c goal of less than 7.0% 12/24/2013 Overview: ICD-10 update of inactive term Last Assessment & Plan: Insulin dependent diabetic with ulcers and peripheral neuropathy. No recent A1C to review. Reports mildly uncontrolled blood glucose levels. Following with diabetes MTM clinic. Wants a CGM. I discussed my concerns with affordability as he is experiencing financial difficulties. Advised he talks with the diabetic MTM pharmacist at next appointment to discuss further. documented as of this encounter (statuses as of 09/10/2023) Resolved Problems Problem Noted Date Diagnosed Date Resolved Date Polyneuropathy, unspecified 07/23/2022 03/11/2023 Atherosclerosis of [place]ct[place] artery of extremity 06/27/19 23 03/11/2023 Cellulitis of right lower extremity 06/07/2022 03/11/2023 Irregular heart rhythm 04/19/202203/11 Last Assessment & Plan: Irregular heart rhythm on exam. Previous visit by nurse revealed a heart rate in the 40s. Today HR is 87. If he has an atrial arrhythmia, he is already adequately anticoagulated on warfarin for right iliac artery occlusion. Order placed for 7 day Zio monitor for further investigation. Financial insecurity 04/19/2022 023 Housing instability, housed, with risk of homelessness 04/19/2022 03/11/2023 Family disruption due to divorce 04/19/2022 03/11/2023 Last Assessment & Plan: Unfortunately, his filed for divorce while he was hospitalized in [place]. She gave him enough money for a plane ticket to [place] to live with an old friend. He does not work and is trying to apply for social security. Would appreciate any resources. Referral placed for [facility] to assist. Assistance needed with transportation 04/19/2022 03/11/2023 Hypertensive heart disease w ithout congestive heart failure 04/19/2022 03/11/2023 Last Assessment & Plan: Patient has chronic exertional dyspnea, who underwent DSE in 2018 without evidence of inducible ischemia. He has changes of hypertensive heart disease with moderate LV thickness and grade I diastolic dysfunction. Although he has several risk factors for CAD, his chest pressure is occurring at night when resting and not with exertion. This could also be related to a dysrhythmia. He appears to be euvolemic on limited examination. Recommended Zio monitor for which he was agreeable. Recommended Cardiology establishment. Has problems with transportation. Referral placed within [facility] for assistance. Advanced care planning/counseling discussion 03/11/2023 Last Assessment & Plan: He would benefit from advanced care planning discussions. Mentioned during the visit he wishes for NO CPR or intubation. Willing to fill out a POLST form to document his wishes. Reports "when my time is up, it's up". Note sent to [facility] strategic development manager for discussion at next visit. Iliac artery stenosis, right 03/05/2022 03/11/2023 Last Assessment & Plan: CT abd/pelvis 02/2022 at [facility] revealed occlusion of right internal iliac artery with distal reconstitution. Vascular surgery was consulted and no intervention was needed. He was started on warfarin for anticoagulation. Following with anticoagulation clinic. Recommended he should follow routinely with Vascular surgery. Again, problems with transportation. Referral placed for assistance from [facility] for resources. Toe ulcer, left, limited to breakdown of skin 03/05/2007/23/2022 Leg ulcer, left, limited to breakdown of skin 03/05/2006/26/2022 Food insecurity 03/05/2022 03/11/2023 Overview: Per [facility] Protocol Peripheral vascular disease, unspecified 03/01/2022 03/11/2023 Encounter for monitoring Coumadin therapy 03/01/2022 03/11/2023 Diabetic ulcer of left thigh , limited to breakdown of skin 02/16/2022 06/07/2022 Last Assessment & Plan: Reports wound is now closed. No further evidence of cellulitis or poor wound healing per patient. Home health nursing following. Cellulitis of left lower extremity 02/16/2022 03/11/2023 Super-super obese 02/12/2022 03/11/2023 BCC (basal cell carcinoma), scalp/neck 09/05/2018 02/12/2022 Body mass index (BMI) greate r than or equal to 70 in adult 03/31/2018 02/12/2022 Overview: Per Obesity protocol #1 - Left foot drop 08/23/2017 03/11/2023 Last Assessment & Plan: Patient would benefit from evaluation by podiatry/orthotics for a boot to treat his left foot drop. Agreeable once he has better means of transportation. Body mass index (BMI) of 50. 0 to 59.9 in adult 06/04/2017 07/05/2017 Overview: Per Obesity protocol #1 DM type 2 causing neurological disease 05/16/2017 02/12/2022 Low back pain 12/22/2013 02/12/2022 documented as of this encounter (statuses as of 09/10/2023) Immunizations Name Administration Dates Next Due Hepatitis B Vaccine, Recombi nant, Adjuvanted, 20 mcg/mL (Heplisav-B) 07/23/2022 Pneumococcal Conjugate Vaccine, 20-valent (Prevn ar20) 07/23/2022 Pneumococcal Polysaccharide PPV23 (Pneumovax) TDAP (age 10 and older)(Boostrix) 05/16/2017,04/2007 Zoster Vaccine Recombinant (Shingrix) 10/29/2022 ,07/23/2022 documented as of this encounter Social History Tobacco Use Types Packs/Day Years Used Date Smoking Tobacco: Every Day Cigarettes 0.2 44 Cigars Smokeless Tobacco: Former Comments:2 cigars a day Alcohol Use Standard Drinks/Week Comments No 0 (1 standard drink = 0.6 oz pur e alcohol) rare. maybe one beer a year PHQ-2 Answer Date Recorded PHQ Adult Total Score 0 02/16/2022 Hunger Vital Sign Answer Date Recorded Within the past 12 months, y ou worried that your food would run out before you got the money to buy more. Sometimes true Within the past 12 months, t he food you bought just didn't last and you didn't have money to get more. Sometimes true Sex and Gender Information Value Date Recorded Sex Assigned at Male 08/09/2023 11:12 AM EDT Gender Identity Male 08/09/2023 11:10 AM EDT Sexual Orientation Straight 08/09/2023 11 :12 AM EDT Job Start Date Occupation Industry Not on file Not on file Not on file documented as of this encounter Miscellaneous Notes * Telephone Encounter - Jamal Velazquez MD - 09/09/2023 11:22 AM EDTSigned Prescriptions: Disp Refills Albuterol Sulfate HFA 108 (90 Base) MCG/AC*18 g 1 Sig: Inhale 2 Puffs by mouth every 6 hours as needed for Cough, Shortness of Breath or Wheezing. Authorizing Provider: JAMAL VELAZQUEZ Ordering User: JOSE DUARTE Warfarin Sodium 10 MG Oral Tablet (Coumadi*180 Ta*1 Sig: Take 1 and 1/2 to 2 Tablets by mouth daily. As directed by anticoagulation clinic Authorizing Provider: JAMAL VELAZQUEZ Ordering User: JOSE DUARTE Ozempic (0.25 or 0.5 MG/DOSE) 2 MG/3ML Myra*3 mL 0 Sig: Inject 0.5 mg under the skin once a week. Authorizing Provider: JAMAL VELAZQUEZ * Telephone Encounter - Jose Duarte [facility] - 09/09/2023 11:07 AM EDT Pending Prescriptions: Disp Refills Ozempic (0.25 or 0.5 MG/DOSE) 2 MG/3ML Myra*3 mL 0 Sig: Inject 0.5 mg under the skin once a week. Signed Prescriptions: Disp Refills Albuterol Sulfate HFA 108 (90 Base) MCG/AC*18 g 1 Sig: Inhale 2 Puffs by mouth every 6 hours as needed for Cough, Shortness of Breath or Wheezing. Authorizing Provider: JAMAL VELAZQUEZ Ordering User: JOSE DUARTE Warfarin Sodium 10 MG Oral Tablet (Coumadi*180 Ta*1 Sig: Take 1.5-2 Tablets by mouth daily. As directed by anticoagulation clinic Authorizing Provider: JAMAL VELAZQUEZ Ordering User: JOSE DUARTE * Telephone Encounter - Jose Duarte RP - 09/09/2023 11:03 AM EDT Dose change recommended for Ozempic. Script pending. Please approve if appropriate and route back to inform the patient. Current dose: 0.25mg Requested dose: 0.5mg Reason for request: The lower initial dose (0.25mg weekly) is intended to reduce GI symptoms; it does not provide effective glycemic control. Recommend tapering up to next appropriate dose. Pending Prescriptions: Disp Refills Ozempic (0.25 or 0.5 MG/DOSE) 2 MG/3ML So*3 mL 0 Sig: Inject 0.5 mg under the skin once a week. Signed Prescriptions: Disp Refills Albuterol Sulfate HFA 108 (90 Base) MCG/AC*18 g 1 Sig: Inhale 2 Puffs by mouth every 6 hours as needed for Cough, Shortness of Breath or Wheezing. Authorizing Provider: JAMAL VELAZQUEZ Ordering User: JOSE DUARTE Warfarin Sodium 10 MG Oral Tablet (Coumadi*180 Ta*1 Sig: Take 1.5-2 Tablets by mouth daily. As directed by anticoagulation clinic Authorizing Provider: JAMAL VELAZQUEZ Ordering User: JOSE DUARTE Thank You Jose Duarte, PharmD Clinical Pharmacist [facility] ([facility]) (formerly Telepharmacy) [phone] / [phone] 09/09/2023, 11:06 AM documented in this encounter Plan of Treatment Upcoming Encounters Date Type Department Care Team (Late st Contact Info) Description 09/13/2023 7:00 AM EDT Laboratory Lab Mobile Phlebotomy [facility] [address] [place] [address] [facility], [facility] Mobile Home Draw [address] [place] [address] 09/13/2023 1:40 PM EDT Office Visit Family [facility] [address] [place] [address] Jamal Velazquez MD [address] [place] [address] 09/13/2023 6:00 PM EDT Anticoagulation Pharmacy Call Center [address] [facility] [place] [address] [facility] [address] [facility] [place] [address] 11/12/2023 4:20 PM EDT [facility] [address] [place] [address] Jamal Velazquez MD [address] [place] [address] Scheduled Procedures Name Priority Associated Diagnoses Date/Ti me COLONOSCOPY FLEXIBLE PROXIMA L DIAGNOSTIC Recall Screening for colon cancer Health Maintenance Due Date Last Done Comments DISCUSS TOBACCO CESSATION (REFER TO SMARTSET #6708) 1965 Cologuard 2009 Fecal Occult Blood Test 2009 Sigmoidoscopy 2009 Hepatitis B (2 of 2 - CpG 2-dose series) 08/20/2022 07/23/2022 COVID-19 Vaccine (1 - season) 2022 Depression Screening 02/16/2023 02/16/2022 *NEPHROLOGY REFERRAL DUE TO RESISTANT HTN 09/06/2023 Influenza Vaccine (FLU shot) (Season Ended) 2023 HbA1c 02/08/2024 08/09/2023, 1106/2022, 11/12/2022, Additional history exists GFR 08/08/2024 08/09/2023, 1204/2022, 02/22/2023, Additional history exists Albumin/Creatinine Ratio 09/03/2024 024, 02/16/2022, 05/16/2017, Additional history exists Diabetic Eye Exam 09/03/2024 09/04/2023, 02/16/2022 Diabetic Foot Exam 09/03/2024 09/04/2023, 1 05/14/2017, 05/16/2017, Additional history exists DTaP,Tdap,and Td Vaccines (3 - Td or Tdap) 05/16/2027 05/16/2017, 04/22/2007 Lipid Panel 11/13/2027 11/12/2022, 11/21, 05/16/2017, Additional history exists Colonoscopy 03/28/2033 03/28/2023 Colorectal Cancer Screening 03/28/2033 Pneumococcal Vaccine: Pediatrics (0 to 5 Years) and At-Risk Patients (6 to 64 Years) Completed 07/23/2022, 08/23/2017 Zoster Vaccines Completed 10/29/2022, 07/23/2022 GARDASIL-HPV IMMUNIZATION SERIES Aged Out No longer eligible based on patient's age to complete this topic MENINGOCOCCAL (MENACTRA/MENVEO) Aged Out No longer eligible based on patient's age to complete this topic documented as of this encounter Medical Devices Not on filedocumented as of this encounter Visit Diagnoses Diagnosis Mild intermittent reactive airway disease without complication Peripheral vascular disease, unspecified (HCC) Peripheral vascular disease, unspecified Encounter for monitoring Coumadin therapy Encounter for therapeutic drug monitoring Iliac artery stenosis, right (HCC) Stricture of artery Type 2 diabetes mellitus with hemoglobin A1c goal of less than 7.0% (HCC) documented in this encounter Care Teams Scullion Chief Relationship Specialty Start Date End Date Jamal Velazquez MD [address] [place] [address] PCP - General Family Medicine 05/22/23 documented as of this encounter
--- OUTSIDE RECORDS SUMMARY | 2023-09-16 21:27 | External Medical Summary | Summary of Care ---
Author Name Unknown Organization [facility] Address [address] [address] Phone [phone] Care Team Providers Care Local Announcer Name Role Phone Jamal Velazquez MD Primary Care Provider [phone] Reason for Visit * Reason Comments Medication Refill Encounter Details Date Type Department Care Team (Late st Contact Info) Description 2023 Refill Family Practice [address] [place] [address] [place] [address] Jam[facility]azquez [facility] [address] [facility] [address] Iron deficiency anemia, unspecified iron deficiency anemia type Allergies Active Allergy Reactions Criticality Noted Date Comments Metformin Diarrhea 05/16/2017 documented as of this encounter (statuses as of 09/09/2023) Medications Medication Sig Dispensed Refills Start Date End Date Status D-Care Glucometer w/Device KitIndications:Typ e 2 diabetes mellitus without complication, with long-term current use of insulin ([facility]) Use as directed . Use as directed [...] A1c goal of less than 7.0% (HCC) Use to inject insulin 6 times daily 300 Each 5 3 Active Nitroglycerin 0.4 MG Sublingual Tablet Sublingual (Nitrostat)Indicat ions:Angina pectoris (HCC) Place 1 Tablet under the tongue as needed for Pain, Chest. May repeat 3 times. If chest pain continues, call 911. 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 28 Patch 1 4 Active Metoprolol Succinate ER 50 MG Oral Tablet Extended Release 24 Hour (toPROL XL)Indications:ASC VD (arteriosclerotic cardiovascular disease) Take 1 Tablet by mouth in the morning. 90 Tablet 4 Active Isosorbide Mononitrate ER 30 MG [...] for monitoring Coumadin therapy,Iliac artery stenosis, right ([facility]) Take 1 and 1/2 to 2 Tablets by mouth daily. As directed by anticoagulation clinic 180 Tablet 1 4 Active Ozempic (0.25 or 0.5 MG/DOSE) 2 MG/3ML Solution Pen-injector (Semaglutide(0.25 or 0.5MG/DOS))Indicat ions:Type 2 diabetes mellitus with hemoglobin A1c goal of less than 7.0% ([facility]) Inject 0.5 mg under the skin once a week. 3 mL 4 Active Ferrous Sulfate 325 (65 Fe) MG Oral Tablet (FeroSul)Indicatio ns:Iron deficiency anemia, unspecified iron deficiency anemia type Take 1 Tablet by mouth in the morning and 1 Tablet before bedtime. 60 Tablet 1 4 Active Ferrous Sulfate 325 (65 Fe) MG Oral Tablet (FeroSul)Indicatio ns:Iron deficiency anemia, unspecified iron deficiency anemia type Take 1 Tablet by mouth in the morning and 1 Tablet before bedtime. 60 Tablet 1 4 09/07/19 24 Discontinu ed(Refill) documented as of this encounter (statuses as of 09/09/2023) Active Problems Problem Noted Date Diagnosed Date [...] as of this encounter (statuses as of 09/09/2023) Resolved Problems Problem Noted Date Diagnosed Date Resolved Date Polyneuropathy, unspecified 07/23/2022 03/11/2023 Atherosclerosis of [place] artery of extremity 06/27/19 23 03/11/2023 Cellulitis [...] for divorce while he was hospitalized in [place]. She gave him enough money for a plane ticket to [place] to live with an old friend. He does not work and is trying to apply for social security. Would appreciate any resources. Referral placed for [facility] to assist. Assistance needed with transportation 04/19/2022 03/11/2023 Hypertensive heart disease w [facility] congestive heart failure 04/19/2022 03/11/2023 Last Assessment [...] Has problems with transportation. Referral placed within [facility] for assistance. Advanced care planning/counseling discussion 03/11/2023 Last Assessment & Plan: He would benefit from advanced care planning discussions. Mentioned during the visit he wishes for NO CPR or intubation. Willing to fill out a POLST form to document his wishes. Reports "when my time is up, it's up". Note sent to [facility] ancillary services manager therapy for discussion at next visit. Iliac artery stenosis, right 03/05/2022 03/11/2023 Last Assessment & Plan: CT abd/pelvis 02/2022 at [facility] revealed occlusion of right internal iliac artery with distal reconstitution. Vascular surgery was consulted and no intervention was needed. He was started on warfarin for anticoagulation. Following with anticoagulation clinic. Recommended he should follow routinely with Vascular surgery. Again, problems with transportation. Referral placed for assistance from [facility] for resources. Toe ulcer, left, limited [...] as of this encounter (statuses as of 09/09/2023) Immunizations Name Administration Dates Next Due Hepatitis [...] Encounter - Jamal Velazquez MD - 09/09/2023 12:47 PM EDTSigned Prescriptions: Disp Refills Ferrous Sulfate 325 (65 Fe) MG Oral Tablet*60 Tab*1 Sig: Take 1 Tablet by mouth in the morning and 1 Tablet before bedtime. Authorizing Provider: JAMAL VELAZQUEZ * Telephone Encounter - Malika Avina LPN - 09/09/2023 11:58 AM EDTPending Prescriptions: Disp Refills Ferrous Sulfate 325 (65 Fe) MG Oral Tablet*60 Tab*1 Sig: Take 1 Tablet by mouth in the morning and 1 Tablet before bedtime. * Telephone Encounter - Malika Avina LPN - 09/09/2023 11:58 AM EDT Did you pend patient's preferred pharmacy and medication before forwarding?yes Pharmacy: [facility] Pending Prescriptions: Disp Refills Ferrous Sulfate 325 (65 Fe) MG Oral Table*60 Tab*1 Sig: Take 1 Tablet by mouth in the morning and 1 Tablet before bedtime. Last Visit: Visit date not found (in office), Visit date not found (telemedicine) Next Visit: Visit date not found If no future appointments scheduled, and last appointment is greater than a year ago, please schedule patient for a follow-up appointment Last date the medication was ordered: 07/11/23 Is this request for a controlled substance?No Urine Drug Screen:No results found for this or any previous visit. Patient Phone Numbers mobile [phone] Labs: Lab Results Component Value Date/Time CREAT 0.7 08/09/2023 11:59 AM CREAT 0.6 03/14/2018 12:13 PM POTASSIUM 5.0 08/09/2023 11:59 AM POTASSIUM 4.1 03/14/2018 12:13 PM TSH 2.78 08/09/2023 11:59 AM TSH 3.47 03/14/2018 12:13 PM LDLCALC 82 12/10/2017 10:10 AM LDLDIRECT 97 11/12/2022 08:44 AM LDLDIRECT NOT APPLICABLE 12/22/2013 02:52 PM ALT 17 08/09/2023 11:59 AM ALT 23 03/14/2018 12:13 PM HGBA1C 7.6 (H) 08/09/2023 11:59 AM HGBA1C 6.5 (A) 08/18/2018 12:00 AM HGBA1C 10.2 (H) 12/10/2017 10:10 AM * Telephone Encounter - Barbara Gan LPN - 09/09/2023 8:54 AM EDT Pending Prescriptions: Disp Refills Ferrous Sulfate 325 (65 Fe) MG Oral Tablet*60 Tab*1 Sig: Take 1Tablet by mouth in the morning and 1 Tablet before bedtime. documented in this encounter Plan of Treatment Upcoming Encounters Date Type Department Care Team (Late st Contact Info) Description 09/13/2023 7:00 AM EDT Laboratory Lab Mobile Phlebot[facility] [address] [place] [address] [facility] Mobile Home Draw [address] [place] [address] 09/13/2023 1:40 PM EDT Office Visit Family [address] [place] [address] Jamal Velazquez MD [address] [place] [address] 09/13/2023 6:00 PM EDT Anticoagulation Pharmacy Call Center [address] [place] [address] [facility] [address] [facility] [place] [address] 11/12/2023 4:20 PM EDT Office Visit Family Practice [facility] [address] [place] [address] Jamal Velazquez MD [address] [place] [address] Scheduled Procedures Name Priority Associated Diagnoses Date/Ti me COLONOSCOPY FLEXIBLE PROXIMA L DIAGNOSTIC Recall Screening for colon cancer Health Maintenance Due Date Last Done Comments DISCUSS TOBACCO CESSATION (REFER TO SMARTSET #3291) 1965 Cologuard 2009 Fecal Occult Blood Test 2009 Sigmoidoscopy 2009 Hepatitis B (2 of 2 - CpG 2-dose series) 08/20/2022 07/23/2022 COVID-19 Vaccine ( season) 2022 Depression Screening 02/16/2023 02/16/2022 *NEPHROLOGY REFERRAL DUE TO RESISTANT HTN 09/06/2023 Influenza Vaccine (FLU shot) (Season Ended) 2023 HbA1c 02/08/2024 08/09/2023, 11/0 06/2022, 11/12/2022, Additional history exists GFR 08/08/2024 08/09/2023, 12/0 04/2022, 02/22/2023, Additional history exists Albumin/Creatinine Ratio 09/03/2024 024, 02/16/2022, 05/16/2017, Additional history exists Diabetic Eye Exam 09/03/2024 09/04/2023, 02/16/2022 Diabetic Foot Exam 09/03/2024 09/04/2023, 1 05/14/2017, 05/16/2017, Additional history exists DTaP,Tdap,and Td Vaccines (3 - Td or Tdap) 05/16/2027 05/16/2017, 04/22/2007 Lipid Panel 11/13/2027 11/12/2022, 08/04/2017, 05/16/2017, Additional history exists Colonoscopy 03/28/2033 03/28/2023 [...] as of this encounter Visit Diagnoses Diagnosis Iron deficiency anemia, unspecified iron deficiency anemia type documented in this encounter Care Teams Local Announcer Relationship Specialty Start Date End Date Jamal Velazquez MD [address] [place] [address] PCP - General Family Medicine 05/22/23 documented as of this encounter
--- OUTSIDE RECORDS SUMMARY | 2023-09-16 21:27 | External Medical Summary | Summary of Care ---
Author Name Unknown Organization [facility] Address [address] [facility] [address] [place] [address] Phone [phone] Care Team Providers Care Bindery Machine Operator Name Role Phone Jamal Velazquez MD Primary Care Provider [phone] Reason for Visit * Reason Comments Medication Refill Encounter Details Date Type Department Care Team (Late st Contact Info) Description 2023 Refill Family Practice [facility] [address] [place] [address] Jamal Velazquez MD [address] [place] [address] Mild intermittent reactive airway disease without complication; Peripheral vascular disease, unspecified (HCC); Encounter for monitoring Coumadin therapy; Iliac artery stenosis, right (HCC); Type 2 diabetes mellitus with hemoglobin A1c goal of less than 7.0% ([facility]) Allergies Active Allergy Reactions Criticality Noted Date [...] hemoglobin A1c goal of less than 7.0% ([facility]) Use to inject insulin 6 times daily 300 Each 5 3 Active Nitroglycerin 0.4 MG Sublingual Tablet Sublingual (Nitrostat)Indicat ions:Angina pectoris ([facility]) Place 1 Tablet under the tongue as needed for Pain, Chest. May repeat 3 times. If chest pain continues, call 911. 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 She gave him enough money for a plane ticket to [place] to live with an old friend. He does not work and is trying to apply for social security. Would appreciate any resources. Referral placed for [facility] to assist. Assistance needed with transportation 04/19/2022 [...] Has problems with transportation. Referral placed within [facility] for assistance. Advanced care planning/counseling discussion 03/11/2023 Last Assessment & Plan: He would benefit from advanced care planning discussions. Mentioned during the visit he wishes for NO CPR or intubation. Willing to fill out a POLST form to document his wishes. Reports "when my time is up, it's up". Note sent to [facility] hotel assistant manager for discussion at next visit. Iliac artery stenosis, right 03/05/2022 03/11/2023 Last Assessment & Plan: CT abd/pelvis 02/[address] [facility] revealed occlusion of right internal iliac artery with distal reconstitution. Vascular surgery was consulted and no intervention was needed. He was started on warfarin for anticoagulation. Following with anticoagulation clinic. Recommended he should follow routinely with Vascular surgery. Again, problems with transportation. Referral placed for assistance from [facility] for resources. Toe ulcer, left, limited to [...] VELAZQUEZ * Telephone Encounter - Jose Duarte [facility] - 09/09/2023 11:07 AM EDT Pending Prescriptions: [...] [facility] ([facility]) (formerly Telepharmacy) [phone] / [phone] 09/09/2023, 11:06 AM documented in this encounter Plan of Treatment Upcoming Encounters Date Type Department Care Team (Late st Contact Info) Description 09/13/2023 7:00 AM EDT Laboratory Lab [facility] Phlebotomy [facility] [address] [place] [address] [facility] Mobile Home Draw [address] [place] [address] 09/13/2023 1:40 PM EDT Office Visit Family [facility] [address] [place] [address] Jamal Velazquez MD [address] [place] [address] 09/13/2023 6:00 PM EDT Anticoagulation Pharmacy Call Center [address] [facility] [place] [address] [facility] [address] [facility] [place] [address] 11/12/2023 4:20 PM EDT [facility] [address] [place] [address] Jamal Velazquez MD [address] [place] [address] Scheduled Procedures Name Priority Associated Diagnoses Date/Ti me COLONOSCOPY FLEXIBLE PROXIMA L DIAGNOSTIC Recall Screening for colon cancer Health Maintenance Due Date Last Done Comments DISCUSS TOBACCO CESSATION (REFER TO SMARTSET #0409) 1965 Cologuard 2009 Fecal Occult Blood Test [...] (HCC) documented in this encounter Care Teams Bindery Machine Operator Relationship Specialty Start Date End Date Jamal Velazquez MD [address] [address] PCP - General Family Medicine 05/22/23 documented as of this encounter
--- OUTSIDE RECORDS SUMMARY | 2023-09-16 21:27 | External Medical Summary | Summary of Care ---
Author Name Unknown Organization [facility] Address [address] [place] [address] Phone [phone] Care Team Providers Care Lockstitch Pocket Setter Name Role Phone Mauricio Lerma MD Primary Care Provider [phone] Reason for Visit * Reason Onset Date Comments Test Results 06/05/2023 Encounter Details Date Type Department Care Team (Late st Contact Info) Description 06/05/2023 Telephone Cardiology, [facility] [address] [facility] [place] [address] Brian Dickey PA-C [address] [facility] [address] Test Results Allergies Active Allergy Reactions Criticality Noted Date Comments Metformin Diarrhea 05/16/2017 documented as of this encounter (statuses as of 09/04/2023) Medications Medication Sig Dispensed Refills Start Date End Date Status D-Care Glucometer w/Device KitIndications:Type 2 diabetes mellitus without complication, with long-term current use of insulin ([facility]) Use as directed . Use as directed for home glucose testing 4 times daily 1 Kit 0 02/08/2022 Active LancetsIndications:T ype 2 diabetes mellitus without complication, with long-term current use of insulin ([facility]) Use as directed. 100 Each 11 02/08/2022 Active Dexcom G7 Sensor Use 1 sensor every 10 days 3 Each 08/16/2022 Active BD Pen Needle Molly U/F 32G X 4 MM (Insulin Pen Needle)Indications:T ype 2 diabetes mellitus with hemoglobin A1c goal of less than 7.0% ([facility]) Use to inject insulin 6 times daily 300 Each 5 08/16/2022 Active Nitroglycerin 0.4 MG Sublingual Tablet Sublingual (Nitrostat)Indicatio ns:Angina pectoris (HCC) Place 1 Tablet under the tongue as needed for Pain, Chest. May repeat 3 times. If chest pain continues, call 911. 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 Inject with meals. Units as per sliding scale. 45 mL 08/16/2022 Active Ammonium Lactate 12 % External Cream (Lac-Hydrin)Indicati ons:Venous stasis dermatitis of both lower extremities Apply topically to affected area 2 times a day. To affected area. 385 g 10/29/2022 Active Glucose Blood In Vitro StripIndications:Typ e 2 diabetes mellitus without complication, with long-term current use of insulin ([facility]) Use as directed 4 times a day. 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 28 Patch 05/22/2023 Active Metoprolol Succinate ER 50 MG Oral Tablet Extended Release 24 Hour (toPROL XL)Indications:ASCVD (arteriosclerotic cardiovascular disease) Take 1 Tablet by mouth in the morning. 90 Tablet 05/22/2023 Active Isosorbide Mononitrate ER 30 MG Oral Tablet Extended Release 24 Hour (Imdur)Indications:A SCVD (arteriosclerotic cardiovascular disease) Take 1 Tablet by mouth in the morning. 90 Tablet 3 05/22/2023 Active Furosemide 20 MG Oral Tablet (Lasix) Take one tablet up to three days per week as needed for leg swelling 16 Tablet 5 05/22/2023 Active documented as of this encounter (statuses as of 09/04/2023) Active Problems Problem Noted Date Diagnosed Date [...] as of this encounter (statuses as of 09/04/2023) Resolved Problems Problem Noted Date Diagnosed Date Resolved Date Polyneuropathy, unspecified 07/23/2022 03/11/2023 Atherosclerosis of [place] artery of extremity 06/27/1903/11/2023 Cellulitis of right lower extremity 06/07/2022 03/11/2023 [...] for divorce while he was hospitalized in [place]. She gave him enough money for a plane ticket to [place] to live with an old friend. He does not work and is trying to apply for social security. Would appreciate any resources. Referral placed for [facility] to assist. Assistance needed with transportation 04/19/2022 03/11/2023 Hypertensive heart disease w [facility] congestive heart failure 04/19/2022 03/11/2023 Last Assessment [...] Has problems with transportation. Referral placed within [facility] for assistance. Advanced care planning/counseling discussion 03/11/2023 Last Assessment & Plan: He would benefit from advanced care planning discussions. Mentioned during the visit he wishes for NO CPR or intubation. Willing to fill out a POLST form to document his wishes. Reports "when my time is up, it's up". Note sent to [facility] manager community for discussion at next visit. Iliac artery stenosis, right 03/05/2022 03/11/2023 Last Assessment & Plan: CT abd/pelvis 02/2022 at [facility] revealed occlusion of right internal iliac artery with distal reconstitution. Vascular surgery was consulted and no intervention was needed. He was started on warfarin for anticoagulation. Following with anticoagulation clinic. Recommended he should follow routinely with Vascular surgery. Again, problems with transportation. Referral placed for assistance from [facility] for resources. Toe ulcer, left, limited [...] as of this encounter (statuses as of 09/04/2023) Immunizations Name Administration Dates Next Due Hepatitis [...] encounter Miscellaneous Notes * Telephone Encounter - Casimiro Miramontes LPN - 06/05/2023 4:49 PM EST Sent patient a [facility] message to make aware. Awaiting reply to pend orders. ----- Message from Brian Dickey PA-C sent at 06/05/2023 2:42 PM EST ----- Zio monitoring reveals frequent isolated premature ventricular complexes (18.4% burden) and runs ofnonsustained ventricular tachycardia with the longest lasting 10 beats in duration. Rare symptoms correlated with atrial and ventricular ectopy and sinus tachycardia. Recommendations: 1. Check a TSH with reflex free T4, magnesium level, and a basic metabolic panel 2. Increase metoprolol succinate from 50 mg/day to 75 mg/day 3. Refer for resting echocardiography 4. Refer for Lexiscan nuclear stress testing documented in this encounter Plan of Treatment Upcoming Encounters Date Type Department Care Team (Late st Contact Info) Description 09/13/2023 7:00 AM EDT Laboratory Lab Mobile Phlebotomy [facility] [address] [address] [facility] Draw [address] [place] [address] 09/13/2023 1:40 PM EDT Office Visit [facility] [address] [place] [address] Mauricio Lerma MD [address] [place] [address] 09/13/2023 6:00 PM EDT Anticoagulation Pharmacy Call Center [address] [place] [address] [facility] [address] [facility] [place] [address] 11/12/2023 4:20 PM EDT Office Visit [facility] [address] [place] [address] Mauricio Lerma MD [address] [place] [address] Scheduled Procedures Name Priority Associated Diagnoses Date/Ti me COLONOSCOPY FLEXIBLE PROXIMA L DIAGNOSTIC Recall Screening for colon cancer Health Maintenance Due Date Last Done Comments DISCUSS TOBACCO CESSATION (REFER TO SMARTSET #7779) 1965 Cologuard 2009 Fecal Occult Blood Test 2009 Sigmoidoscopy 2009 Hepatitis B (2 of 2 - CpG 2-dose series) 08/20/2022 07/23/2022 COVID-19 Vaccine ( season) 2022 Albumin/Creatinine Ratio 02/16/2023 024, 02/16/2022, 05/16/2017, Additional history exists Depression Screening 02/16/2023 02/16/2022 Influenza Vaccine (FLU shot) (Season Ended) 2023 HbA1c 02/08/2024 08/09/2023, 11/0 06/2022, 11/12/2022, Additional history exists GFR 08/08/2024 08/09/2023, 12/0 04/2022, 02/22/2023, Additional history exists Diabetic Eye Exam 09/03/2024 [...] Not on filedocumented as of this encounter Care Teams Lockstitch Pocket Setter Relationship Specialty Start Date End Date Mauricio Lerma MD [address] [place] [address] PCP - General Family Medicine 05/22/23 documented as of this encounter
--- OUTSIDE RECORDS SUMMARY | 2023-09-16 21:27 | External Medical Summary | Summary of Care ---
Author Name Unknown Organization [facility] Address [address] [facility] [place] [address] Phone [phone] Care Team Providers Care Installation Manager Name Role Phone Mauricio Lerma MD Primary Care Provider [phone] Reason for Visit * Reason Comments Medication Refill Encounter Details Date Type Department Care Team (Late st Contact Info) Description 2023 Refill Family Practice [facility] [address] [place] [address] Jennifer Archer DO [address] [place] [address] Skin lesion Allergies Active Allergy Reactions Criticality Noted Date Comments Metformin Diarrhea 05/16/2017 documented as of this encounter (statuses as of 09/09/2023) Medications Medication Sig Dispensed Refills Start Date End Date Status D-Care Glucometer w/Device KitIndications:Type 2 diabetes mellitus without complication, with long-term current use of insulin ([facility]) Use as directed . Use as directed for home glucose testing 4 times daily 1 Kit 2 Active LancetsIndications: Type 2 diabetes mellitus without complication, with long-term current use of insulin ([facility]) Use as directed. 100 Each 11 2 Active BD Pen Needle Molly U/F 32G X 4 MM (Insulin Pen Needle)Indications: Type 2 diabetes mellitus with hemoglobin A1c goal of less than 7.0% (HCC) Use to inject insulin 6 times daily 300 Each 5 3 Active Nitroglycerin 0.4 MG Sublingual Tablet Sublingual (Nitrostat)Indicati ons:Angina pectoris (HCC) Place 1 Tablet under the tongue as needed for Pain, Chest. May repeat 3 times. If chest pain continues, call 911. 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 Inject with meals. Units as per sliding scale. 45 mL 3 3 Active Ammonium Lactate 12 % External Cream (Lac-Hydrin)Indicat ions:Venous stasis dermatitis of both lower extremities Apply topically to affected area 2 times a day. To affected area. 385 g 3 Active Glucose Blood In Vitro StripIndications:Ty pe 2 diabetes mellitus without complication, with long-term current use of insulin ([facility]) Use as directed 4 times a day. Use up to four times a day as directed 100 Strip 5 4 Active Alcohol Prep 70 % Pad DIRECTED 100 Each 5 4 Active Insulin Glargine 100 UNIT/ML Subcutaneous Solution (Lantus)Indications :Type 2 diabetes mellitus with hyperglycemia, with long-term current use of insulin ([facility]),Type 2 diabetes mellitus with peripheral vascular disease [...] Oral Tablet Extended Release 24 Hour (toPROL XL)Indications:ASCV D (arteriosclerotic cardiovascular disease) Take 1 Tablet by mouth in the morning. 90 Tablet 4 Active Isosorbide Mononitrate ER 30 MG Oral Tablet Extended Release 24 Hour (Imdur)Indications: ASCVD (arteriosclerotic cardiovascular disease) Take 1 Tablet by mouth in the morning. 90 Tablet 3 4 Active Furosemide 20 MG Oral Tablet (Lasix) Take one tablet up to three days per week as needed for leg swelling 16 Tablet 5 4 Active Clopidogrel Bisulfate 75 MG Oral Tablet (Plavix)Indications :Type 2 diabetes mellitus with diabetic peripheral angiopathy and gangrene, with long-term current use of insulin (HCC) Take 1 Tablet by mouth in the morning. 90 Tablet 2 4 Active DULoxetine HCl 30 MG Oral Capsule Delayed Release Particles (Cymbalta)Indicatio ns:Spinal stenosis of lumbar region with neurogenic claudication Take 2 capsules by mouth once daily 180 Capsule 2 4 Active Lisinopril 40 MG Oral TabletIndications:H TN, goal below 130/80 Take 1 Tablet by mouth in the morning. 90 Tablet 2 4 Active Atorvastatin Calcium 40 MG Oral Tablet (Lipitor) Take 1 Tablet by mouth in the morning. 90 Tablet 2 4 Active Albuterol Sulfate HFA 108 (90 Base) MCG/ACT Inhalation Aerosol SolutionIndications :Mild intermittent reactive airway disease without complication Inhale 2 Puffs by mouth every 6 hours as needed for Cough, Shortness of Breath or Wheezing. 18 g 1 4 Active Ferrous Sulfate 325 (65 Fe) MG Oral Tablet (FeroSul)Indication s:Iron deficiency anemia, unspecified iron deficiency anemia type Take 1 Tablet by mouth in the morning and 1 Tablet before bedtime. 60 Tablet 1 4 Active Warfarin Sodium 10 MG Oral Tablet (Coumadin)Indicatio ns:Peripheral vascular disease, unspecified (HCC),Encounter for monitoring Coumadin therapy,Iliac artery stenosis, right (HCC) Take 1.5- 2 tablets by mouth daily. Dosage adjustment by anticoagulation clinic. Patient aware of the tablet strength change. 60 Tablet 4 Active Additional Information Patient taking differently:15-20 mg Oral Daily(Non-Specified),Indications: pt takes 20 mg saturday and and 15 mg all other days, Reported on 08/09/2023 Pregabalin 75 MG Oral Capsule (Lyrica)Indications :Spinal stenosis of lumbar region with neurogenic claudication Take 1 Capsule by mouth in the morning and 1 Capsule before bedtime. 60 Capsule 5 4 Active Ozempic (0.25 or 0.5 MG/DOSE) 2 MG/3ML Solution Pen-injector (Semaglutide(0.25 or 0.5MG/DOS))Indicati ons:Type 2 diabetes mellitus with hemoglobin A1c goal of less than 7.0% (HCC) Inject 0.25 mg under the skin once a week. 3 mL 4 Active Doxycycline Hyclate 100 MG Oral CapsuleIndications: Skin lesion Take 1 Capsule by mouth in the morning and 1 Capsule before bedtime for 10 days until gone. 20 Capsule 4 09/14/19 Active Dexcom G7 Sensor Use 1 sensor every 10 days 3 Each 11 4 Active documented as of this encounter (statuses [...] Date Polyneuropathy, unspecified 07/23/2022 03/11/2023 Atherosclerosis of [place] artery of extremity 06/27/19 23 03/11/2023 Cellulitis [...] for divorce while he was hospitalized in [place]. She gave him enough money for a plane ticket to [place] to live with an old friend. He does not work and is trying to apply for social security. Would appreciate any resources. Referral placed for [facility] to assist. Assistance needed with transportation 04/19/2022 03/11/2023 Hypertensive heart disease w [facility] congestive heart failure 04/19/2022 03/11/2023 Last Assessment [...] Has problems with transportation. Referral placed within [facility] for assistance. Advanced care planning/counseling discussion 03/11/2023 Last Assessment & Plan: He would benefit from advanced care planning discussions. Mentioned during the visit he wishes for NO CPR or intubation. Willing to fill out a POLST form to document his wishes. Reports "when my time is up, it's up". Note sent to [facility] online communications manager for discussion at next visit. Iliac artery stenosis, right 03/05/2022 03/11/2023 Last Assessment & Plan: CT abd/pelvis 02/2022 at [facility] revealed occlusion of right internal iliac artery with distal reconstitution. Vascular surgery was consulted and no intervention was needed. He was started on warfarin for anticoagulation. Following with anticoagulation clinic. Recommended he should follow routinely with Vascular surgery. Again, problems with transportation. Referral placed for assistance from [facility] for resources. Toe ulcer, left, limited [...] encounter Miscellaneous Notes * Telephone Encounter - Liz Irizarry [facility] - 09/09/2023 10:34 AM EDT Refused Prescriptions: Disp Refills Doxycycline Hyclate 100 MG Oral Capsule 20 Cap*0 Sig: Take 1 Capsule by mouth in the morning and 1 Capsule before bedtime for 10 days until gone.Refused By: LIZ IRIZARRY for Refusal: Unexpected request: Telephone review of med list documented in this encounter Plan of Treatment Upcoming Encounters Date Type Department Care Team (Late st Contact Info) Description 09/13/2023 7:00 AM EDT Laboratory Lab Mobile Phlebotomy [facility] [address] [facility] [place] [address] [facility] Mobile Home Draw [phone] [place] [address] 09/13/2023 1:40 PM EDT [facility] [address] [place] [address] Mauricio Lerma MD [address] [place] [address] 09/13/2023 6:00 PM EDT Anticoagulation Pharmacy Call Center [address] [place] [address] [facility] [address] [place] [address] 11/12/2023 4:20 PM EDT [facility] [address] [place] [address] Mauricio Lerma MD [address] [place] [address] Scheduled Procedures Name Priority Associated Diagnoses Date/Ti me COLONOSCOPY FLEXIBLE PROXIMA L DIAGNOSTIC Recall Screening for colon cancer Health Maintenance Due Date Last Done Comments DISCUSS TOBACCO CESSATION (REFER TO SMARTSET #3291) 1965 Cologuard 2009 Fecal Occult Blood Test 2009 Sigmoidoscopy 2009 Hepatitis B (2 of 2 - CpG 2-dose series) 08/20/2022 07/23/2022 COVID-19 Vaccine ( - season) 2022 Depression Screening 02/16/2023 02/16/2022 [...] 05/16/2027 05/16/2017, 04/22/2007 Lipid Panel 11/13/2027 11/12/2022, 0804/2017, 05/16/2017, Additional history exists Colonoscopy 03/28/2033 03/28/2023 [...] as of this encounter Visit Diagnoses Diagnosis Skin lesion Unspecified disorder of skin and subcutaneous tissue documented in this encounter Care Teams Installation Manager Relationship Specialty Start Date End Date Mauricio Lerma MD [address] [place] [address] PCP - General Family Medicine 05/22/23 documented as of this encounter
--- OUTSIDE RECORDS SUMMARY | 2023-09-16 21:27 | External Medical Summary | Summary of Care ---
Author Name Unknown Organization [facility] Address [address] [facility] [address] [place] [address] Phone [phone] Care Team Providers Care Manager Outpatient Name Role Phone Mauricio Lerma MD Primary Care Provider [phone] [phone] Reason for Visit * Reason Comments Outpatient Testing Encounter Details Date Type Department Care Team (Late st Contact Info) Description 09/04/2023 1:10 PM EDT Laboratory Laboratory, [facility] [address] [facility] [address] [facility] [address] [place] [address] Type 2 diabetes mellitus with diabetic polyneuropathy, unspecified whether manager of creative services insulin use (HCC) Allergies Active Allergy Reactions Criticality Noted Date Comments Metformin Diarrhea 05/16/2017 documented as of this encounter (statuses as of 09/04/2023) Medications Medication Sig Dispensed Refills Start Date End Date Status D-Care Glucometer w/Device KitIndications:Type 2 diabetes mellitus without complication, with long-term current use of insulin (HCC) Use as directed . Use as directed for home glucose testing 4 times daily 1 Kit 0 2 Active LancetsIndications: Type 2 diabetes mellitus without complication, with long-term current use of insulin (HCC) Use as directed. 100 Each 11 2 Active Dexcom G7 Sensor Use 1 sensor every 10 days 3 Each 11 3 Active BD Pen Needle Molly U/F 32G [...] hyperglycemia, with long-term current use of insulin ([facility]),Type 2 diabetes mellitus with peripheral vascular [...] complication, with long-term current use of insulin ([facility]) Use as directed 4 times a day. Use up to four times a day as directed 100 Strip 5 4 Active Alcohol Prep 70 % Pad DIRECTED 100 Each 5 4 Active Insulin Glargine 100 UNIT/ML Subcutaneous Solution (Lantus)Indications :Type 2 diabetes mellitus with hyperglycemia, with long-term current use of insulin ([facility]),Type 2 diabetes mellitus with peripheral vascular [...] for monitoring Coumadin therapy,Iliac artery stenosis, right ([facility]) Take 1.5- 2 tablets by mouth daily. Dosage adjustment by anticoagulation clinic. Patient aware of the tablet strength change. 60 Tablet 0 4 Active Additional Information Patient taking differently:15-20 [...] hemoglobin A1c goal of less than 7.0% ([facility]) Inject 0.25 mg under the skin once a week. 3 mL 0 4 Active Doxycycline Hyclate 100 MG Oral CapsuleIndications: Skin lesion Take 1 Capsule by mouth in the morning and 1 Capsule before bedtime for 10 days until gone. 20 Capsule 0 4 09/14/19 24 Active documented as of this encounter (statuses [...] Date Polyneuropathy, unspecified 07/23/2022 03/11/2023 Atherosclerosis of [place] artery of extremity 06/27/1903/11/2023 Cellulitis of right [...] for divorce while he was hospitalized in [place]. She gave him enough money for a plane ticket to [place] to live with an old friend. He does not work and is trying to apply for social security. Would appreciate any resources. Referral placed for [facility] to assist. Assistance needed with transportation 04/19/2022 03/11/2023 Hypertensive heart disease w [facility] congestive heart failure 04/19/2022 03/11/2023 Last [...] Has problems with transportation. Referral placed within [facility] for assistance. Advanced care planning/counseling discussion 03/11/2023 Last Assessment & Plan: He would benefit from advanced care planning discussions. Mentioned during the visit he wishes for NO CPR or intubation. Willing to fill out a POLST form to document his wishes. Reports "when my time is up, it's up". Note sent to [facility] logistics planning manager for discussion at next visit. 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 Vascular surgery was consulted and no intervention was needed. He was started on warfarin for anticoagulation. Following with anticoagulation clinic. Recommended he should follow routinely with Vascular surgery. Again, problems with transportation. Referral placed for assistance from [facility] for resources. Toe ulcer, left, limited [...] on file documented as of this encounter Plan of Treatment Upcoming Encounters Date Type Department Care Team (Late st Contact Info) Description 09/13/2023 7:00 AM EDT Laboratory Lab Mobile Phlebotomy [facility] [address] [facility] [place] [address] [facility], Gml Mobile Home Draw [address] [place] [address] 09/13/2023 6:00 PM EDT Anticoagulation Pharmacy Call Center [address] [place] [address] [facility], [facility] [address] [facility] [place] [address] 11/12/2023 4:20 PM EDT Office Visit Family Practice [facility] [address] [place] [address] Mauricio Lerma MD [address] [place] [address] Pending Results Name Type Priority Associated Diagnoses Date /Time ALBUMIN / CREATININE RATIO, URINE Lab Routine Type 2 diabetes mellitus with diabetic polyneuropathy, unspecified whether fdc insulin use (HCC) 09/04/2023 12:26 PM EDT Scheduled Procedures Name Priority Associated Diagnoses Date/Ti me COLONOSCOPY FLEXIBLE PROXIMA L DIAGNOSTIC Recall Screening for colon cancer Health Maintenance Due Date Last Done Comments DISCUSS TOBACCO CESSATION (REFER TO SMARTSET #3294) 1965 Cologuard 2009 Fecal Occult Blood Test 2009 Sigmoidoscopy 2009 Hepatitis B (2 of 2 - CpG 2-dose series) 08/20/2022 07/23/2022 COVID-19 Vaccine ( season) 2022 Albumin/Creatinine Ratio 02/16/20232 022, 05/16/2017, 12/22/2013 Depression Screening 02/16/2023 02/16/2022 Influenza Vaccine (FLU [...] as of this encounter Visit Diagnoses Diagnosis Type 2 diabetes mellitus with diabetic polyneuropathy, unspecified whether fdc insulin use (HCC) documented in this encounter Care Teams Manager Outpatient Relationship Specialty Start Date End Date Mauricio Lerma MD [address] [place] [address] PCP - General Family Medicine 05/22/23 documented as of this encounter
--- OUTSIDE RECORDS SUMMARY | 2023-09-16 21:27 | External Medical Summary | Summary of Care ---
Author Name Unknown Organization [facility] Address [address] [facility] [place] [address] Phone [phone] Care Team Providers Care Gauger Chief Name Role Phone Jamal Velazquez MD Primary Care Provider [phone] Reason for Visit * Reason Comments Medication Refill Encounter Details Date Type Department Care Team (Late st Contact Info) Description 2023 Refill Family Practice [facility] [address] [place] [address] Cadence Avina MD [address] [place] [address] Allergies Active Allergy Reactions Criticality Noted Date Comments Metformin Diarrhea 05/16/2017 documented as of this encounter (statuses as of 2023) Medications Medication Sig Dispensed Refills Start Date End Date Status D-Care Glucometer w/Device KitIndications:Typ e 2 diabetes mellitus without complication, with long-term current use of insulin ([facility]) Use as directed . Use as directed for home glucose testing 4 times daily 1 Kit 0 2 Active LancetsIndications :Type 2 diabetes mellitus without complication, with long-term current use of insulin ([facility]) Use as directed. 100 Each 11 2 [...] in the morning. 90 Tablet 4 Active Furosemide 20 MG Oral Tablet [...] on 08/09/2023 Pregabalin 75 MG Oral Capsule (Lyrica)Indication s:Spinal stenosis of lumbar region with neurogenic claudication Take 1 Capsule by mouth in the morning and 1 Capsule before bedtime. 60 Capsule 5 4 Active Ozempic (0.25 or 0.5 MG/DOSE) 2 MG/3ML Solution Pen-injector (Semaglutide(0.25 or 0.5MG/DOS))Indicat ions:Type 2 diabetes mellitus with hemoglobin A1c goal of less than 7.0% ([facility]) Inject 0.25 mg under the skin once a week. 3 mL 0 4 Active Doxycycline Hyclate 100 MG Oral CapsuleIndications :Skin lesion Take 1 Capsule by mouth in the morning and 1 Capsule before bedtime for 10 days until gone. 20 Capsule 0 4 09/14/19 24 Active Dexcom G7 Sensor Use 1 sensor every 10 days 3 Each 11 4 Active Dexcom G7 Sensor Use 1 sensor every 10 days 3 Each 11 3 09/07/19 24 Discontinu ed(Refill) documented as of this encounter (statuses as of 2023) Active Problems Problem Noted Date Diagnosed Date [...] as of this encounter (statuses as of 2023) Resolved Problems Problem Noted Date Diagnosed Date Resolved Date Polyneuropathy, unspecified 07/23/2022 03/11/2023 Atherosclerosis of [place] artery of extremity 06/27/1903/11/2023 Cellulitis of right [...] for divorce while he was hospitalized in [place]. She gave him enough money for a plane ticket to [place] to live with an old friend. He does not work and is trying to apply for social security. Would appreciate any resources. Referral placed for [facility] to assist. Assistance needed with transportation [...] Has problems with transportation. Referral placed within [facility] for assistance. Advanced care planning/counseling discussion 03/11/2023 Last Assessment & Plan: He would benefit from advanced care planning discussions. Mentioned during the visit he wishes for NO CPR or intubation. Willing to fill out a POLST form to document his wishes. Reports "when my time is up, it's up". Note sent to [facility] gift manager for discussion at next visit. Iliac artery stenosis, right 03/05/2022 03/11/2023 Last Assessment & Plan: CT abd/pelvis 02/2022 at [facility] revealed occlusion of right internal iliac artery with distal reconstitution. Vascular surgery was consulted and no intervention was needed. He was started on warfarin for anticoagulation. Following with anticoagulation clinic. Recommended he should follow routinely with Vascular surgery. Again, problems with transportation. Referral placed for assistance from [facility] for resources. Toe ulcer, left, limited [...] as of this encounter (statuses as of 2023) Immunizations Name Administration Dates Next Due Hepatitis [...] encounter Miscellaneous Notes * Telephone Encounter - Mildred Carrillo [facility] - 2023 12:30 PM EDT Signed Prescriptions: Disp Refills Dexcom G7 Sensor 3 Each 11 Sig: Use 1 sensor every 10 daysAuthorizing Provider: JAMAL VELAZQUEZOrdering User: MILDRED CARRILLO documented in this encounter Plan of Treatment Upcoming Encounters Date Type Department Care Team (Late st Contact Info) Description 09/13/2023 7:00 AM EDT Laboratory Lab Mobile Phlebotomy [facility] [address] [facility] [place] [address] Mvmg, Gml Mobile Home Draw [address] [facility] [place] [address] 09/13/2023 1:40 PM EDT Office Visit [facility] [address] [place] [address] Jamal Velazquez MD [address] [place] [address] 09/13/2023 6:00 PM EDT Anticoagulation Pharmacy Call Center [address] [place] [address] [facility] [address] [place] [address] 11/12/2023 4:20 PM EDT [facility] [address] [place] [address] Jamal Velazquez MD [address] [place] [address] Scheduled Procedures Name Priority Associated Diagnoses Date/Ti me COLONOSCOPY FLEXIBLE PROXIMA L DIAGNOSTIC Recall Screening for colon cancer Health Maintenance Due Date Last Done Comments DISCUSS TOBACCO CESSATION (REFER TO SMARTSET #0243) 1964 Cologuard 2009 Fecal Occult Blood Test [...] filedocumented as of this encounter Care Teams Gauger Chief Relationship Specialty Start Date End Date Jamal Velazquez MD [address] [place] [address] PCP - General Family Medicine 05/22/23 documented as of this encounter
--- OUTSIDE RECORDS SUMMARY | 2023-09-16 21:27 | External Medical Summary | Summary of Care ---
Author Name Unknown Organization [facility] Address [address] [facility] [place] [address] Phone [phone] Care Team Providers Care Neck Fitter Name Role Phone Jamal Velazquez MD Primary Care Provider [phone] Reason for Visit * Reason Comments Medication Refill Encounter Details Date Type Department Care Team (Late st Contact Info) Description 2023 Refill Family Practice [facility] [address] [place] [address] Jamal Velazquez MD [address] [place] [address] Mild intermittent reactive airway disease without complication; Peripheral vascular disease, unspecified (HCC); Encounter for monitoring Coumadin therapy; Iliac artery stenosis, right (HCC); Type 2 diabetes mellitus with hemoglobin A1c goal of less than 7.0% ([facility]) Allergies Active Allergy Reactions Criticality Noted Date [...] hemoglobin A1c goal of less than 7.0% ([facility]) Use to inject insulin 6 times daily 300 Each 5 3 Active Nitroglycerin 0.4 MG Sublingual Tablet Sublingual (Nitrostat)Indicat ions:Angina pectoris ([facility]) Place 1 Tablet under the tongue as needed for Pain, Chest. May repeat 3 times. If chest pain continues, call 911. 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 90 Tablet 2 4 Active Ferrous Sulfate 325 (65 Fe) MG Oral Tablet (FeroSul)Indicatio ns:Iron deficiency anemia, unspecified iron deficiency anemia type Take 1 Tablet by mouth in the morning and 1 Tablet before bedtime. 60 Tablet 1 4 Active Pregabalin 75 MG Oral Capsule [...] g 1 4 09/07/19 24 Discontinu ed(Refill) Warfarin [...] Date Polyneuropathy, unspecified 07/23/2022 03/11/2023 Atherosclerosis of [place] artery of extremity 06/27/19 23 03/11/2023 Cellulitis [...] for divorce while he was hospitalized in [place]. She gave him enough money for a plane ticket to [place] to live with an old friend. He does not work and is trying to apply for social security. Would appreciate any resources. Referral placed for [facility] to assist. Assistance needed with transportation 04/19/2022 03/11/2023 [facility]/19/2022 03/11/2023 Last Assessment [...] Has problems with transportation. Referral placed within [facility] for assistance. Advanced care planning/counseling discussion 03/11/2023 Last Assessment & Plan: He would benefit from advanced care planning discussions. Mentioned during the visit he wishes for NO CPR or intubation. Willing to fill out a POLST form to document his wishes. Reports "when my time is up, it's up". Note sent to [facility] automation and controls manager for discussion at next visit. Iliac artery stenosis, right 03/05/2022 03/11/2023 Last Assessment & Plan: CT abd/pelvis 02/2022 at [facility] revealed occlusion of right internal iliac artery with distal reconstitution. Vascular surgery was consulted and no intervention was needed. He was started on warfarin for anticoagulation. Following with anticoagulation clinic. Recommended he should follow routinely with Vascular surgery. Again, problems with transportation. Referral placed for assistance from [facility] for resources. Toe ulcer, left, limited [...] VELAZQUEZ * Telephone Encounter - Jose Duarte [facility] - 09/09/2023 11:07 AM EDT Pending [...] DUARTE * Telephone Encounter - Jose Duarte [facility] - 09/09/2023 11:03 AM EDT Dose change [...] Centralized Clinical Pharm[facility] Services ([facility]) (formerly Telepharmacy) [phone] / [phone] 09/09/2023, 11:06 AM documented in this encounter Plan of Treatment Upcoming Encounters Date Type Department Care Team (Late st Contact Info) Description 09/13/2023 7:00 AM EDT Laboratory Lab Mobile Phlebotomy [facility] [address] [place] [address] Mvmg, Gml Mobile Home Draw [address] [place] [address] 09/13/2023 1:40 PM EDT Office Visit [facility] [address] [place] [address] Jamal Velazquez MD [address] [place] [address] 09/13/2023 6:00 PM EDT Anticoagulation Pharmacy Call Center [address] [facility] [address] [facility] [address] [facility] [place] [address] 11/12/2023 4:20 PM EDT Office Visit [facility] [address] [place] [address] Jamal Velazquez MD [address] [place] [address] Scheduled Procedures Name Priority Associated Diagnoses Date/Ti [...] (HCC) documented in this encounter Care Teams Neck Fitter Relationship Specialty Start Date End Date Jamal Velazquez MD [address] [place] [address] PCP - General Family Medicine 05/22/23 documented as of this encounter
--- OUTSIDE RECORDS SUMMARY | 2023-09-16 21:27 | External Medical Summary ---
Author Name Unknown Address Unknown Organization [id number]:[facility] - [address] [place] [address] Laboratory Report Ordering Provider Test Date Status ROCKY STOVER 09/13/2023 07:17:00 Final Please draw PT/INR every 1-4 weeks or as requested by the [facility] Coumadin Clinic

Warfarin Therapy
INR: 2.0-3.0 conventional anticoagulation
INR: 2.5-3.5 high intensity anticoagulation Observation Date Value Abnormality Reference (Units ) Status PT 09/13/2023 07:17:00 38.5 Above high normal 11 .6-15.2 (seconds) Final INR 09/13/2023 07:17:00 3.9 Above high normal 0. 8-1.2 Final Performing Location [facility] - [address] [place] [address]
--- OUTSIDE RECORDS SUMMARY | 2023-09-16 21:28 | External Medical Summary ---
Author Name Unknown Address Unknown Organization [id number]:[facility] [address] [place] [address] Laboratory Report Ordering Provider Test Date Status ROCKY STOVER 08/09/2023 11:59:00 Final Please draw PT/INR every 1-4 weeks or as requested by the [facility] Coumadin Clinic

Warfarin Therapy
INR: 2.0-3.0 conventional anticoagulation
INR: 2.5-3.5 high intensity anticoagulation Observation Date Value Abnormality Reference (Units ) Status PT 08/09/2023 11:59:00 16.5 Above high normal 11 .6-15.2 (seconds) Final INR 08/09/2023 11:59:00 1.3 Above high normal 0. 8-1.2 Final Performing Location [facility] [address] [place] [address]
--- OUTSIDE RECORDS SUMMARY | 2023-09-16 21:28 | External Medical Summary | Summary of Care ---
Author Name Unknown Organization [facility] Address [address] [facility] [place] [address] Phone [phone] Care Team Providers Care Sample Tailor Name Role Phone Mauricio Lerma MD Primary Care Provider [phone] Reason for Visit * Reason Comments Outpatient Testing Encounter Details Date Type Department Care Team (Late st Contact Info) Description 08/09/2023 12:40 PM EDT Laboratory Laboratory, [facility] [address] [facility] [address] [address] [facility] [address] [place] [address] Peripheral vascular disease, unspecified (HCC); Encounter for monitoring Coumadin therapy; Iliac artery stenosis, right (HCC); 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 45 mL 3 3 Active Varenicline Tartrate 0.5 MG Oral Tablet (Chantix)Indication s:Tobacco use Take 1 Tablet by mouth in the morning and 1 Tablet in the evening. 53 Tablet 0 3 Active Additional Information Patient not taking.Reported on 11/12/2022 Ammonium Lactate 12 % External Cream (Lac-Hydrin)Indicat [...] a week. 3 mL 0 4 Active documented as of this encounter (statuses as of 08/09/2023) Active Problems Problem Noted Date Diagnosed Date Type 2 diabetes mellitus with diabetic toe [...] as of this encounter (statuses as of 08/09/2023) Resolved Problems Problem Noted Date Diagnosed Date Resolved Date Polyneuropathy, unspecified 07/23/2022 03/11/2023 Atherosclerosis of [place] artery of extremity 06/27/19 23 03/11/2023 Cellulitis [...] for divorce while he was hospitalized in [place]. She gave him enough money for a plane ticket to [place] to live with an old friend. He does not work and is trying to apply for social security. Would appreciate any resources. Referral placed for [facility] to assist. Assistance needed with transportation 04/19/2022 [...] Has problems with transportation. Referral placed within [facility] for assistance. Advanced care planning/counseling discussion 03/11/2023 Last Assessment & Plan: He would benefit from advanced care planning discussions. Mentioned during the visit he wishes for NO CPR or intubation. Willing to fill out a POLST form to document his wishes. Reports "when my time is up, it's up". Note sent to [facility] wind plant manager for discussion at next visit. Iliac artery stenosis, right 03/05/2022 03/11/2023 Last Assessment & Plan: CT abd/pelvis 02/2022 at [facility] revealed occlusion of right internal iliac artery with distal reconstitution. Vascular surgery was consulted and no intervention was needed. He was started on warfarin for anticoagulation. Following with anticoagulation clinic. Recommended he should follow routinely with Vascular surgery. Again, problems with transportation. Referral placed for assistance from [facility] for resources. Toe ulcer, left, limited to [...] as of this encounter (statuses as of 08/09/2023) Immunizations Name Administration Dates Next Due Hepatitis [...] Care Team (Late st Contact Info) Description 08/12/2023 6:00 AM EDT Anticoagulation Pharmacy Call Center [phone] [place] [address] [facility] [address] [facility] [place] [address] 11/12/2023 4:20 PM EDT Office Visit Family Practice [facility] [address] [place] [address] Mauricio Lerma MD [address] [place] [address] Pending Results Name Type Priority Associated Diagnoses Date /Time PT INR Lab Routine Peripheral vascular disease, unspecified (HCC) Encounter for monitoring Coumadin therapy Iliac artery stenosis, right (HCC) 08/09/2023 11:59 AM EDT HEMOGLOBIN A1C Lab Routine 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 (HCC) 08/09/2023 11:59 AM EDT COMPREHENSIVE METABOLIC PANEL Lab Routine 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 (HCC) 08/09/2023 11:59 AM EDT TSH WITH FREE T4 IF INDICATED Lab Routine Super obese 08/09/2023 11:59 AM EDT Scheduled Procedures Name Priority Associated Diagnoses Date/Ti me COLONOSCOPY FLEXIBLE PROXIMA L DIAGNOSTIC Recall Screening for colon cancer Health Maintenance Due Date Last Done Comments DISCUSS TOBACCO CESSATION (REFER TO SMARTSET #3292) 1964 Cologuard 2009 Fecal Occult Blood Test 2009 Sigmoidoscopy 2009 Diabetic Foot Exam 03/14/2019 03/14/2018, 0 05/16/2017, 01/01/2014 Hepatitis B (2 of 2 - CpG 2-dose series) 08/20/2022 07/23/2022 COVID-19 Vaccine ( season) 2022 Albumin/Creatinine Ratio 02/16/2023 022, 05/16/2017, 12/22/2013 Depression Screening 02/16/2023 02/16/2022 Diabetic Eye Exam 02/16/2023 02/16/2022 HbA1c 08/23/2023 02/22/2023, 0707/2022, 05/17/2022, Additional history exists Influenza Vaccine (FLU shot) (Season Ended) 2023 GFR 03/22/2024 03/22/2023, 11/0 06/2022, 11/12/2022, Additional history exists DTaP,Tdap,and Td Vaccines (3 [...] as of this encounter Visit Diagnoses Diagnosis Peripheral vascular disease, unspecified (HCC) Peripheral vascular disease, unspecified Encounter for monitoring Coumadin therapy Encounter for therapeutic drug monitoring Iliac artery stenosis, right (HCC) Stricture of artery 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
--- OUTSIDE RECORDS SUMMARY | 2023-09-16 21:28 | External Medical Summary ---
Author Name Unknown Address Unknown Organization [id number]:LABORATORY [facility] [place] - [address] [place] [address] Laboratory Report Ordering Provider Test Date Status MARCUS BERRY 08/09/2023 11:59:00 Final Observation Date Value Abnormality Reference (Units ) Status TSH 08/09/2023 11:59:00 2.78 0.27-4.20 (uIU/mL) Final Performing Location LABORATORY [facility] [place] - [address] [place] [address]
--- OUTSIDE RECORDS SUMMARY | 2023-09-16 21:28 | External Medical Summary ---
Author Name Unknown Address Unknown Organization [id number]:[facility]ORY [facility] [place] [address] [place] [address] Laboratory Report Ordering Provider Test Date Status ROCKY STOVER 08/30/2023 08:55:00 Final Please draw PT/INR every 1-4 weeks or as requested by the [facility]

Warfarin Therapy
INR: 2.0-3.0 conventional anticoagulation
INR: 2.5-3.5 high intensity anticoagulation Observation Date Value Abnormality Reference (Units ) Status PT 08/30/2023 08:55:00 44.1 Above high normal 11 .6-15.2 (seconds) Final INR 08/30/2023 08:55:00 4.6 Above high normal 0. 8-1.2 Final Performing Location LABORATORY [facility] [place] [address] [place] [address]
--- OUTSIDE RECORDS SUMMARY | 2023-09-16 21:28 | External Medical Summary ---
Author Name Unknown Address Unknown Organization [id number]:[place] [facility] [place] [address] [facility] [place] [address] Laboratory Report Ordering Provider Test Date Status MARCUS BERRY 08/09/2023 11:59:00 Final Observation Date Value Abnormality Reference (Units ) Status BUN 08/09/2023 11:59:00 18 6-20 (mg/dL) Final Creatinine 08/09/2023 11:59:00 0.7 0.6-1.2 (mg/dL) Final Glomerular filtration rate/1.73 sq M.predicted [Volume Rate/Area] in Serum, Plasma or Blood by Creatinine-based formula (CKD-EPI) 08/09/2023 11:59:00 >90 >=60 (mL/min) Final eGFR is calculated based on the CKD-EPI 2020 equation Sodium 08/09/2023 11:59:00 137 135-146 (m mol/L) Final Potassium 08/09/2023 11:59:00 5.0 3.5-5.1 (m mol/L) Final Cl 08/09/2023 11:59:00 102 98-107 (mm ol/L) Final CO2 08/09/2023 11:59:00 24 22-32 (mmo l/L) Final Anion gap 08/09/2023 11:59:00 11 7-15 (mmol /L) Final Glucose 08/09/2023 11:59:00 224 Above high normal 70 -120 (mg/dL) Final Albumin 08/09/2023 11:59:00 3.8 3.8-5.0 (g /dL) Final AST (Aspartate aminotransferase) 08/09/2023 11:59:00 15 10-50 (U/L) Fin al Result may be falsely elevat ed due to hemolysis. Alk Phos 08/09/2023 11:59:00 118 35-130 (U/ L) Final Bilirubin, Total 08/09/2023 11:59:00 0.3 <=1 .2 (mg/dL) Final Calcium 08/09/2023 11:59:00 9.8 8.4-10.2 ( mg/dL) Final Protein 08/09/2023 11:59:00 6.6 6.0-8.3 (g /dL) Final ALT (Alanine aminotransferase) 08/09/2023 11:59:00 17 10-50 (U/L) Final Performing Location [place] [facility] [place] [address] [place] [facility] [address]
--- OUTSIDE RECORDS SUMMARY | 2023-09-16 21:28 | External Medical Summary | Summary of Care ---
Author Name Unknown Organization [facility] Address [address] [facility] [place] [address] Phone [phone] Care Team Providers Care Assistant Front Office Manager Name Role Phone Jamal Velazquez MD Primary Care Provider [phone] Reason for Visit * Reason Comments Medication Refill Encounter Details Date Type Department Care Team (Late st Contact Info) Description 07/10/2023 Refill Family Practice [address] [facility] [place] [address] [place] [address] Julio César Pulliam DO [address] [place] [address] Iron deficiency anemia, unspecified iron deficiency anemia type Allergies Active Allergy Reactions Criticality Noted Date Comments Metformin Diarrhea 05/16/2017 documented as of this encounter (statuses as of 07/11/2023) Medications Medication Sig Dispensed Refills Start Date [...] 10 days 3 Each 11 3 Active Gabapentin 600 MG Oral Tablet (Neurontin)Indicat ions:Lumbar radiculopathy Take 1 Tablet by mouth in the morning and 1 Tablet at noon and 1 Tablet before bedtime. 270 Tablet 3 3 Active BD Pen Needle Molly U/F 32G X 4 MM (Insulin Pen Needle)Indications :Type 2 diabetes mellitus with hemoglobin A1c goal of less than 7.0% ([facility]) Use to inject insulin 6 times daily 300 Each 5 3 Active Metoprolol Succinate ER 50 MG Oral Tablet Extended Release 24 Hour (toPROL XL) Take 1 Tablet by mouth in the morning. 90 Tablet 3 3 Active Nitroglycerin 0.4 MG Sublingual Tablet Sublingual (Nitrostat)Indicat ions:Angina pectoris ([facility]) Place 1 Tablet under the tongue as needed for Pain, Chest. May repeat 3 times. If chest pain continues, call 911. 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 Inject with meals. Units as per sliding scale. 45 mL 3 3 Active Varenicline Tartrate 0.5 MG Oral Tablet (Chantix)Indicatio ns:Tobacco use Take 1 Tablet by mouth in the morning and 1 Tablet in the evening. 53 Tablet 0 3 Active Additional Information Patient not taking.Reported on 11/12/2022 Ammonium Lactate 12 % External CreamIndications:V enous stasis dermatitis of both lower extremities Apply topically to affected area 2 times a day. To affected area. 385 g 11 3 Active Warfarin Sodium 10 MG Oral Tablet (Coumadin)Indicati ons:Peripheral vascular disease, unspecified ([facility]),Encounter for monitoring Coumadin therapy,Iliac artery stenosis, right ([facility]) Take 1.5- 2 tablets by mouth daily. Dosage adjustment by anticoagulation clinic. Patient aware of the tablet strength change. 60 Tablet 1 4 Active Glucose Blood In Vitro StripIndications:T ype 2 diabetes mellitus without complication, with long-term current use of insulin ([facility]) Use as directed 4 times a day. 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 60 Tablet 1 3 07/10/19 24 Discontinu ed(Refill) documented as of this encounter (statuses as of 07/11/2023) Active Problems Problem Noted Date Diagnosed Date [...] as of this encounter (statuses as of 07/11/2023) Resolved Problems Problem Noted Date Diagnosed Date Resolved Date Polyneuropathy, unspecified 07/23/2022 03/11/2023 Atherosclerosis of [place] artery of extremity 06/27/19 23 03/11/2023 Cellulitis [...] enough money for a plane ticket to [place] to live with an old friend. He does not work and is trying to apply for social security. Would appreciate any resources. Referral placed for [facility] to assist. Assistance needed with transportation 04/19/2022 03/11/2023 Hypertensive heart disease w [facility] congestive heart failure 04/19/2022 03/11/2023 Last [...] Has problems with transportation. Referral placed within [facility] for assistance. Advanced care planning/counseling discussion 03/11/2023 Last Assessment & Plan: He would benefit from advanced care planning discussions. Mentioned during the visit he wishes for NO CPR or intubation. Willing to fill out a POLST form to document his wishes. Reports "when my time is up, it's up". Note sent to [facility] reception centre manager for discussion at next visit. Iliac artery stenosis, right 03/05/2022 03/11/2023 Last Assessment & Plan: CT abd/pelvis 02/2022 at [facility] revealed occlusion of right internal iliac artery with distal reconstitution. Vascular surgery was consulted and no intervention was needed. He was started on warfarin for anticoagulation. Following with anticoagulation clinic. Recommended he should follow routinely with Vascular surgery. Again, problems with transportation. Referral placed for assistance from [facility] for resources. Toe ulcer, left, limited [...] as of this encounter (statuses as of 07/11/2023) Immunizations Name Administration Dates Next Due Hepatitis [...] Information Value Date Recorded Sex Assigned at Not on file Gender Identity Transgender Female 02/20/2023 9: 08 AM EDT Sexual Orientation Not on file Job Start Date Occupation Industry Not on file Not on file Not on file documented as of this encounter Miscellaneous Notes * Telephone Encounter - Jamal Velazquez MD - 07/11/2023 9:33 AM EDTSigned Prescriptions: Disp Refills Ferrous Sulfate 325 (65 Fe) MG Oral Tablet*60 Tab*1 Sig: Take 1 Tablet by mouth in the morning and 1 Tablet before bedtime. Authorizing Provider: JAMAL VELAZQUEZ * Telephone Encounter - Jean Pierre Palacios, [facility] - 07/11/2023 8:00 AM EDTPending Prescriptions: Disp Refills Ferrous Sulfate 325 (65 Fe) MG Oral Tablet*60 Tab*1 Sig: Take 1Tablet by mouth in the morning and 1 Tablet before bedtime. documented in this encounter Plan of Treatment Upcoming Encounters Date Type Department Care Team (Late st Contact Info) Description 07/22/2023 6:00 AM EDT Anticoagulation Pharmacy Call Center [address] [place] [address] [facility] [address] [place] [address] 07/26/2023 8:00 AM EDT Laboratory Lab [facility] [address] [place] [address] [facility] Draw [address], [place] [id number] Scheduled Procedures Name Priority Associated Diagnoses Date/Ti me COLONOSCOPY FLEXIBLE PROXIMA L DIAGNOSTIC Recall Screening for colon cancer Health Maintenance Due Date Last Done Comments DISCUSS TOBACCO CESSATION (REFER TO SMARTSET #4082) 1965 Pap Smear 1985 Cervical Cancer Screening 1994 HPV/Co-Test 1994 Mammogram 2004 Cologuard 2009 Fecal Occult Blood Test 2009 Sigmoidoscopy 2009 Diabetic Foot Exam 03/14/2019 03/14/2018, 0 05/16/2017, 01/01/2014 Hepatitis B (2 of 2 - CpG 2-dose series) 08/20/2022 07/23/2022 COVID-19 Vaccine ( season) 2022 Influenza Vaccine (FLU shot) (#1) 2022 Albumin/Creatinine Ratio 02/16/2023 022, 05/16/2017, 12/22/2013 Depression Screening 02/16/2023 02/16/2022 Diabetic Eye Exam 02/16/2023 02/16/2022 HbA1c 08/23/2023 02/22/2023, 10/21, 05/17/2022, Additional history exists GFR 03/22/2024 03/22/2023, 06/2022, 11/12/2022, Additional history exists DTaP,Tdap,and Td [...] type documented in this encounter Care Teams Assistant Front Office Manager Relationship Specialty Start Date End Date Jamal Velazquez MD [address] [place] [address] PCP - General Family Medicine 05/22/23 documented as of this encounter
--- OUTSIDE RECORDS SUMMARY | 2023-09-16 21:28 | External Medical Summary ---
Author Name Unknown Address Unknown Organization [id number]:LABORATORY [facility] [place] - [address] [facility] [address] Laboratory Report Ordering Provider Test Date Status MARCUS BERRY 08/09/2023 11:59:00 Final Observation Date Value Abnormality Reference (Units ) Status HbA1C 08/09/2023 11:59:00 7.6 Above high normal 4. 0-5.6 (%) Final The use of HbA1c to monitor glycemic status is based on normal hemoglobin and HbA composition. This test should not be used in patients with abnormal hemoglobin that affects the half life of the red blood cell or the in vivo glycation rates. Glucose, estimated average 08/09/2023 11:59:00 171 Above high normal <126 (mg/dL) Erich silveira Performing Location LABORATORY [facility] [place] - [address] [facility] [address]
--- OUTSIDE RECORDS SUMMARY | 2023-09-16 21:28 | External Medical Summary ---
Author Name Unknown Address Unknown Organization [id number][place] [place] [facility] [address] Laboratory Report Ordering Provider Test Date Status EVELIAJOAO 09/04/2023 12:26:25 Final Normal: <30 mg/g creatinine< br/>High: 30-300 mg/g creatinine
Very High: >300 mg/g creatinine
Nephrotic: >2200 mg/g creatinine Observation Date Value Abnormality Reference (Units ) Status Albumin, Urine 09/04/2023 12:26:25 68.33 (mg/dL) Final Creatinine, Urine 09/04/2023 12:26:25 137 (mg/dL) Final Albumin/Creatinine [Mass Ratio] in Urine 09/04/2023 12:26:25 499 Above high normal <30 (mg/g Creat) Final Performing Location [place] [place] [address] [facility] [address]
--- OUTSIDE RECORDS SUMMARY | 2023-09-16 21:28 | External Medical Summary | Summary of Care ---
Author Name Unknown Organization [facility] Address [address] [facility] [place] [address] Phone [phone] Care Team Providers Care Director Supply Name Role Phone Jamal Velazquez MD Primary Care Provider [phone] Reason for Visit * Reason Comments Medication Refill Encounter Details Date Type Department Care Team (Late st Contact Info) Description 07/30/2023 Refill Family Practice [facility] [address] [place] [address] Jamal Velazquez MD [address] [facility] [place] [address] Peripheral vascular disease, unspecified (HCC); Encounter for monitoring Coumadin therapy; Iliac artery stenosis, right (HCC) Allergies Active Allergy Reactions Criticality Noted Date Comments Metformin Diarrhea 05/16/2017 documented as of this encounter (statuses as of 08/04/2023) Medications Medication Sig Dispensed Refills Start Date [...] hemoglobin A1c goal of less than 7.0% ([facility]) Use to inject insulin 6 times daily 300 Each 5 3 Active Nitroglycerin 0.4 MG Sublingual Tablet Sublingual (Nitrostat)Indicat ions:Angina pectoris ([facility]) Place 1 Tablet under the tongue as needed for Pain, Chest. May repeat 3 times. If chest pain continues, call 911. 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 To affected area. 385 g 11 3 Active Glucose Blood In Vitro StripIndications:T ype 2 diabetes mellitus without complication, with long-term current use of insulin ([facility]) Use as directed 4 times a day. 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 Dosage adjustment by anticoagulation clinic. Patient aware of the tablet strength change. 60 Tablet 0 4 Active Warfarin Sodium 10 MG Oral Tablet (Coumadin)Indicati ons:Peripheral vascular disease, unspecified (HCC),Encounter for monitoring Coumadin therapy,Iliac artery stenosis, right (HCC) Take 1.5- 2 tablets by mouth daily. Dosage adjustment by anticoagulation clinic. Patient aware of the tablet strength change. 60 Tablet 1 4 07/30/19 24 Discontinu ed(Refill) documented as of this encounter (statuses as of 08/04/2023) Active Problems Problem Noted Date Diagnosed Date [...] as of this encounter (statuses as of 08/04/2023) Resolved Problems Problem Noted Date Diagnosed Date Resolved Date Polyneuropathy, unspecified 07/23/2022 03/11/2023 Atherosclerosis of [place] artery of extremity 06/27/1903/11/2023 Cellulitis of right [...] for divorce while he was hospitalized in [place]. She gave him enough money for a plane ticket to [place] to live with an old friend. He does not work and is trying to apply for social security. Would appreciate any resources. Referral placed for [facility] to assist. Assistance needed with transportation 04/19/2022 03/11/2023 Hypertensive heart disease w [facility] congestive heart failure 04/19/2022 03/11/2023 Last [...] Has problems with transportation. Referral placed within [facility] for assistance. Advanced care planning/counseling discussion 03/11/2023 Last Assessment & Plan: He would benefit from advanced care planning discussions. Mentioned during the visit he wishes for NO CPR or intubation. Willing to fill out a POLST form to document his wishes. Reports "when my time is up, it's up". Note sent to [facility] lift manager for discussion at next visit. Iliac artery stenosis, right 03/05/2022 03/11/2023 Last Assessment & Plan: CT abd/pelvis 02/2022 at [facility] revealed occlusion of right internal iliac artery with distal reconstitution. Vascular surgery was consulted and no intervention was needed. He was started on warfarin for anticoagulation. Following with anticoagulation clinic. Recommended he should follow routinely with Vascular surgery. Again, problems with transportation. Referral placed for assistance from [facility] for resources. Toe ulcer, left, limited [...] as of this encounter (statuses as of 08/04/2023) Immunizations Name Administration Dates Next Due Hepatitis [...] Telephone Encounter - Jamal Velazquez MD - 08/04/2023 9:45 PM EDTSigned Prescriptions: Disp Refills Warfarin Sodium 10 MG Oral Tablet (Coumadi*60 Tab*0 Sig: Take 1.5- 2 tablets by mouth daily. Dosage adjustment by anticoagulation clinic. Patient aware of the tablet strength change. Authorizing Provider: JAMAL VELAZQUEZ * Telephone Encounter - Mimi Marie incubator tender - 08/01/2023 11:11 AM EDT Pending Prescriptions: Disp Refills Warfarin Sodium 10 MG Oral Tablet (Coumadi*60 Tab*0 Sig: Take 1.5- 2 tablets by mouth daily. Dosage adjustment by anticoagulation clinic. Patient aware of the tablet strength change. * Telephone Encounter - Mimi Marie PHARM Tech - 08/01/2023 11:11 AM EDT Received message from [facility] regarding patient needing appointment. Call Placed transferred to scheduling. Thank you, Mimi Marie [facility] Break Out Man II [facility] ([facility] (formerly Telepharmacy) 08/01/2023,11:11 AM * Telephone Encounter - Marina Whitmroe [facility] - 07/31/2023 11:30 PM EDT Pending Prescriptions: Disp Refills Warfarin Sodium 10 MG Oral Tablet (Coumadi*60 Tab*0 Sig: Take 1.5- 2 tablets by mouth daily. Dosage adjustment by anticoagulation clinic. Patient aware of the tablet strength change. * Telephone Encounter - Marina Whitmore RPh - 07/31/2023 11:29 PM EDT Pending Prescriptions: Disp Refills Warfarin Sodium 10 MG Oral Tablet (Coumad*60 Tab*0 Sig: Take 1.5- 2 tablets by mouth daily. Dosage adjustment by anticoagulation clinic. Patient aware of the tablet strength change. Last Visit: 10/29/2022 (in office), 03/12/2023 (pt left prior to being seen - telemedicine) Next Visit: Visit date not found If no future appointments scheduled, and last appointment is greater than a year ago, please schedule patient for a follow-up appointment Last date the medication was ordered: 05/17/23 Pharmacy: [facility] Is this request for a controlled substance? No Urine Drug Screen:No results found for this or any previous visit. Patient Phone Numbers Labs: Lab Results Component Value Date/Time CREAT 0.6 03/22/2023 12:26 PM CREAT 0.6 03/14/2018 12:13 PM POTASSIUM 4.8 03/22/2023 12:26 PM POTASSIUM 4.1 03/14/2018 12:13 PM TSH 3.47 03/14/2018 12:13 PM LDLCALC 82 12/10/2017 10:10 AM LDLDIRECT 97 11/12/2022 08:44 AM LDLDIRECT NOT APPLICABLE 12/22/2013 02:52 PM ALT 22 11/12/2022 08:44 AM ALT 23 03/14/2018 12:13 PM HGBA1C 8.0 (H) 02/22/2023 08:16 AM HGBA1C 6.5 (A) 08/18/2018 12:00 AM HGBA1C 10.2 (H) 12/10/2017 10:10 AM * Telephone Encounter - Marina Whitmore RPh - 07/31/2023 11:28 PM EDT Appt on 06/08/23 cancelled Please contact patient so that an appointment can be scheduled with her PRIMARY CARE provider before this refill can be authorized. After contacting patient, please forward request to Jamal Velazquez MD. Last Visit: 10/29/2022 (in office), 03/12/2023 (pt left without being seen - telemedicine) Next Visit: Visit date not found Thank you, Marina Whitmore, PharmD Clinical Pharmacist [facility] (formally Telepharmacy) [phone] 07/31/2023 11:28 PM documented in this encounter Plan of Treatment Upcoming Encounters Date Type Department Care Team (Late st Contact Info) Description 08/09/2023 7:00 AM EDT Laboratory Lab Mobile Phlebotomy [facility] [address] [place] [address] [facility], [facility] Mobile Home Draw [address] [place] [address] 08/12/2023 6:00 AM EDT Anticoagulation Pharmacy Call Center [address] [place] [address] [facility] [address] [place] [address] 09/02/2023 4:00 PM EDT Office Visit Family Practice [facility] [address] [place] [address] Jamal Velazquez MD [address] [place] [address] Scheduled Procedures Name Priority Associated Diagnoses Date/Ti me COLONOSCOPY FLEXIBLE PROXIMA L DIAGNOSTIC Recall Screening for colon cancer Health Maintenance Due Date Last Done Comments DISCUSS TOBACCO CESSATION (REFER TO SMARTSET #3291) 1964 Pap Smear 1985 Cervical Cancer Screening 1994 HPV/Co-Test 1994 Mammogram 2004 Cologuard 2009 Fecal Occult Blood Test 2009 Sigmoidoscopy 2009 Diabetic Foot Exam 03/14/2019 03/14/2018, 0 05/16/2017, 01/01/2014 Hepatitis B (2 of 2 - CpG 2-dose series) 08/20/2022 07/23/2022 COVID-19 Vaccine ( - season) 2022 Albumin/Creatinine Ratio 02/16/2023 022, 05/16/2017, 12/22/2013 Depression Screening 02/16/2023 02/16/2022 Diabetic Eye Exam 02/16/2023 02/16/2022 HbA1c 08/23/2023 02/22/2023, 10/21, 05/17/2022, Additional history exists Influenza Vaccine (FLU shot) (Season Ended) 2023 GFR 03/22/2024 03/22/2023, 06/2022, 11/12/2022, Additional history [...] artery stenosis, right (HCC) Stricture of artery documented in this encounter Care Teams Director Supply Relationship Specialty Start Date End Date Jamal Velazquez MD [address] [place] [address] PCP - General Family Medicine 1/31/24 documented as of this encounter
--- OUTSIDE RECORDS SUMMARY | 2023-09-16 21:28 | External Medical Summary ---
Author Name Unknown Address Unknown Organization K01:[facility] - [address] [place] [address] Laboratory Report Ordering Provider Test Date Status PAM BELL 07/26/2023 07:18:00 Final Observation Date Value Abnormality Reference (Units ) Status MYCODE SPECIMEN-SST 07/26/2023 07:18:00 Freezing of extracted DNA, whole blood and/or serum. Final Performing Location [facility] - [address] [place] [address]
--- OUTSIDE RECORDS SUMMARY | 2023-09-16 21:28 | External Medical Summary | Summary of Care ---
Author Name Unknown Organization [facility] Address [address] [facility] [place] [address] Phone [phone] Care Team Providers Care Assistant Principal Name Role Phone Mauricio Lerma MD Primary Care Provider [phone] Reason for Visit * Reason Comments Dosage Adjustment Via Phone (anticoag Cl inic) Encounter Details Date Type Department Care Team (Latest Contact Info) Description 07/08/2023 6:00 AM EDT Anticoagulation Pharmacy Call Center [address] [place] [address] [facility] [address] [facility] [place] [address] [facility] current use of anticoagulant therapy* Allergies Active Allergy Reactions Criticality Noted Date Comments Metformin Diarrhea 05/16/2017 documented as of this encounter (statuses as of 07/08/2023) Medications Medication Sig Dispensed Refills Start Date [...] 3 Active Gabapentin 600 MG Oral Tablet (Neurontin)Indicati ons:Lumbar radiculopathy Take 1 Tablet by mouth in the morning and 1 Tablet at noon and 1 Tablet before bedtime. 270 Tablet 3 3 Active BD Pen Needle Molly U/F 32G X 4 MM (Insulin Pen Needle)Indications: Type 2 diabetes mellitus with hemoglobin A1c goal of less than 7.0% ([facility]) Use to inject insulin 6 times daily 300 Each 5 3 Active Metoprolol Succinate ER 50 MG Oral Tablet Extended Release 24 Hour (toPROL XL) Take 1 Tablet by mouth in the morning. 90 Tablet 3 3 Active Nitroglycerin 0.4 MG Sublingual Tablet Sublingual (Nitrostat)Indicati ons:Angina pectoris ([facility]) Place 1 Tablet under the tongue as needed for Pain, Chest. May repeat 3 times. If chest pain continues, call 911. 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 To affected area. 385 g 11 3 Active Ferrous Sulfate 325 (65 Fe) MG Oral Tablet (Feosol)Indications :Iron deficiency anemia, unspecified iron deficiency anemia type Take 1 Tablet by mouth in the morning and 1 Tablet before bedtime. 60 Tablet 1 3 Active Warfarin Sodium 10 MG Oral Tablet (Coumadin)Indicatio ns:Peripheral vascular disease, unspecified ([facility]),Encounter for monitoring Coumadin therapy,Iliac artery stenosis, right ([facility]) Take 1.5- 2 tablets by mouth daily. Dosage adjustment by anticoagulation clinic. Patient aware of the tablet strength change. 60 Tablet 1 4 Active Glucose Blood In Vitro StripIndications:Ty pe 2 diabetes mellitus without complication, with long-term current use of insulin (HCC) Use as directed 4 times a day. Use up to four times a day as directed 100 Strip 4 Active Alcohol Prep 70 % Pad DIRECTED 100 Each 4 Active Insulin Glargine 100 UNIT/ML Subcutaneous Solution (Lantus)Indications :Type 2 diabetes mellitus with hyperglycemia, with long-term current use of insulin ([facility]),Type 2 diabetes mellitus with peripheral vascular [...] as needed for leg swelling 16 Tablet 4 Active Clopidogrel Bisulfate 75 MG Oral Tablet (Plavix)Indications :Type 2 diabetes mellitus with diabetic peripheral angiopathy and gangrene, with long-term current use of insulin ([facility]) Take 1 Tablet by mouth in [...] of Breath or Wheezing. 18 g 1 Active documented as of this encounter (statuses as of 07/08/2023) Active Problems Problem Noted Date Diagnosed Date [...] as of this encounter (statuses as of 07/08/2023) Resolved Problems Problem Noted Date Diagnosed Date Resolved Date Polyneuropathy, unspecified 07/23/2022 03/11/2023 Atherosclerosis of [place] artery of extremity 06/27/1903/11/2023 Cellulitis of right [...] for divorce while he was hospitalized in [place]. She gave him enough money for a plane ticket to [place] to live with an old friend. He does not work and is trying to apply for social security. Would appreciate any resources. Referral placed for [facility] to assist. Assistance needed with transportation 04/19/2022 03/11/2023 Hypertensive heart disease w [facility] congestive heart failure 04/19/2022 03/11/2023 Last Assessment [...] Has problems with transportation. Referral placed within [facility] for assistance. Advanced care planning/counseling discussion 03/11/2023 Last Assessment & Plan: He would benefit from advanced care planning discussions. Mentioned during the visit he wishes for NO CPR or intubation. Willing to fill out a POLST form to document his wishes. Reports "when my time is up, it's up". Note sent to [facility] market sales manager for discussion at next visit. Iliac artery stenosis, right 03/05/2022 03/11/2023 Last Assessment & Plan: CT abd/pelvis 02/2022 at [facility] revealed occlusion of right internal iliac artery with distal reconstitution. Vascular surgery was consulted and no intervention was needed. He was started on warfarin for anticoagulation. Following with anticoagulation clinic. Recommended he should follow routinely with Vascular surgery. Again, problems with transportation. Referral placed for assistance from [facility] for resources. Toe ulcer, left, [...] as of this encounter (statuses as of 07/08/2023) Immunizations Name Administration Dates Next Due Hepatitis [...] on file documented as of this encounter Progress Notes * Darin Stevenson PHARM Tech - 07/08/2023 8:22 AM EDT Contacts Type Contact Phone/Fax 07/08/2023 08:17 AM EDT Phone (Outgoing) Madhuri Carmona (Self) [phone] (M) Left Message Subjective Advised patient to contact Anticoagulation Clinic if any unusual bruising or bleeding, recent illness, changes in medication, or questions/concerns. PT/INR results, Coumadin dose instructions, and next PT/INR date communicated as noted by Pharmacist: Yes ASHA LOUIS 07/08/2023, 8:22 AM * Alize Cornejo [facility] - 07/08/2023 8:07 AM EDT Coumadin Clinic (region specific) Objective Current Warfarin Dose As of 07/08/2023 Warfarin maintenance plan: 15 mg (5 mg x 3) every Mon, Wed, Fri; 20 mg (5 mg x 4) all other days INR Result As of 07/08/2023 INR goal: 2.0-3.0 INR used for dosin.3 (07/05/2023) Assessment & Plan Warfarin Plan As of 07/08/2023 Full warfarin instructions: 15 mg every Mon, Wed, Fri; 20 mg all other days No change documented: Alize Cornejo RPh Next INR check: 07/19/2023 Repeat PT/INR in 2 week(s) Weekly dose: not changed Additional Dosing Information: Description GML (Fri only) Patient does not wish to take lovenox any longer due to bruising and pain from needles Patient takes Coumadin in AM; switched to 10 mg tablets 06/08/22 after discussion with patient. Tech to contact patient with dose instructions as noted. Alize Cornejo RPh 07/08/2023, 8:07 AM documented in this encounter Plan of Treatment Scheduled Procedures Name Priority Associated Diagnoses Date/Ti me COLONOSCOPY FLEXIBLE PROXIMA L DIAGNOSTIC Recall Screening for colon cancer Health Maintenance Due Date Last Done Comments DISCUSS TOBACCO CESSATION (REFER TO SMARTSET #1812) 1964 Pap Smear 1985 Cervical Cancer Screening 1994 HPV/Co-Test 1994 Mammogram 2004 Cologuard 2009 Fecal Occult Blood Test 2009 Sigmoidoscopy 2009 Diabetic Foot Exam 03/14/2019 03/14/2018, 0 05/16/2017, 01/01/2014 Hepatitis B (2 of 2 - CpG 2-dose series) 08/20/2022 07/23/2022 COVID-19 Vaccine ( - season) 2022 Influenza Vaccine (FLU shot) (#1) 2022 Albumin/Creatinine Ratio 02/16/2023 022, 05/16/2017, 12/22/2013 Depression Screening 02/16/2023 02/16/2022 Diabetic Eye Exam 02/16/2023 02/16/2022 HbA1c 08/23/2023 02/22/2023, 10/21, 05/17/2022, Additional history exists GFR 03/22/2024 03/22/2023, 11/0 06/2022, 11/12/2022, Additional [...] as of this encounter Visit Diagnoses Diagnosis [facility] current use of anticoagulant therapy- Primary documented in this encounter Care Teams Assistant Principal Relationship Specialty Start Date End Date Mauricio Lerma MD [address] [place] [address] PCP - General Family Medicine 05/22/23 documented as of this encounter
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
--- OUTSIDE RECORDS SUMMARY | 2023-09-16 21:28 | External Medical Summary ---
Author Name Unknown Address Unknown Organization [id number]:[facility]ATORY [facility] - [address] [place] [address] Laboratory Report Ordering Provider Test Date Status PAM BELL 07/26/2023 07:18:00 Final Observation Date Value Abnormality Reference (Units ) Status MYCODE SPECIMEN-SST 07/26/2023 07:18:00 Freezing of extracted DNA, whole blood and/or serum. Final Performing Location [facility] - [address] [place] [address]
--- OUTSIDE RECORDS SUMMARY | 2023-09-16 21:28 | External Medical Summary | Summary of Care ---
Author Name Unknown Organization [facility] Address [address] [facility] [place] [address] Phone [phone] Care Team Providers Care Building Construction Professor Name Role Phone Mauricio Lerma MD Primary Care Provider [phone] Reason for Visit * Reason Comments Acute Multiple open sores on right lower leg and many spontaneous bruising about the body. Encounter Details Date Type Department Care Team (Latest Contact Info) Description 09/04/2023 11:20 AM EDT Office Visit [facility] [address] [place] [address] Evelia Shepherd DO [address] [place] [address] Skin lesion*; Type 2 diabetes mellitus with diabetic polyneuropathy, unspecified whether terminal clerk insulin use (HCC); Mild intermittent asthma, uncomplicated Allergies Active Allergy Reactions Criticality Noted Date [...] testing 4 times daily 1 Kit 0 02/09/20 22 Active LancetsIndications :Type 2 diabetes mellitus without complication, with long-term current use of insulin (HCC) Use as directed. 100 Each 11 02/09/20 22 Active Dexcom G7 Sensor Use 1 sensor every 10 days 3 Each 11 08/17/19 23 Active BD Pen Needle Molly U/F 32G X 4 MM (Insulin Pen Needle)Indications :Type 2 diabetes mellitus with hemoglobin A1c goal of less than 7.0% ([facility]) Use to inject insulin 6 times daily 300 Each 08/17/19 23 Active Nitroglycerin 0.4 MG Sublingual Tablet Sublingual (Nitrostat)Indicat ions:Angina pectoris ([facility]) Place 1 Tablet under the tongue as needed for Pain, Chest. May repeat 3 times. If chest pain continues, call 911. 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 Inject with meals. Units as per sliding scale. 45 mL 08/17/19 23 Active Ammonium Lactate 12 % External Cream (Lac-Hydrin)Indica tions:Venous stasis dermatitis of both lower extremities Apply topically to affected area 2 times a day. To affected area. 385 g 10/30/19 23 Active Glucose Blood In Vitro StripIndications:T ype 2 diabetes mellitus without complication, with long-term current use of insulin ([facility]) Use as directed 4 times a day. 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 28 Patch 05/22/19 24 Active Metoprolol Succinate ER 50 MG Oral Tablet Extended Release 24 Hour (toPROL XL)Indications:ASC VD (arteriosclerotic cardiovascular disease) Take 1 Tablet by mouth in the morning. 90 Tablet 05/22/19 24 Active Isosorbide Mononitrate ER 30 MG Oral Tablet Extended Release 24 Hour (Imdur)Indications :ASCVD (arteriosclerotic cardiovascular disease) Take 1 Tablet by mouth in the morning. 90 Tablet 3 05/22/19 24 Active Furosemide 20 MG Oral Tablet (Lasix) Take one tablet up to three days per week as needed for leg swelling 16 Tablet 5 05/22/19 24 Active Clopidogrel Bisulfate 75 MG Oral Tablet (Plavix)Indication s:Type 2 diabetes mellitus with diabetic peripheral angiopathy and gangrene, with long-term current use of insulin (HCC) Take 1 Tablet by mouth in the morning. 90 Tablet 2 07/08/19 24 Active DULoxetine HCl 30 MG Oral Capsule Delayed Release Particles (Cymbalta)Indicati ons:Spinal stenosis of lumbar region with neurogenic claudication Take 2 capsules by mouth once daily 180 Capsule 2 07/08/19 24 Active Lisinopril 40 MG Oral TabletIndications: HTN, goal below 130/80 Take 1 Tablet by mouth in the morning. 90 Tablet 2 07/08/19 24 Active Atorvastatin Calcium 40 MG Oral Tablet (Lipitor) Take 1 Tablet by mouth in the morning. 90 Tablet 2 07/08/19 24 Active Albuterol Sulfate HFA 108 (90 Base) MCG/ACT Inhalation Aerosol SolutionIndication s:Mild intermittent reactive airway disease without complication Inhale 2 Puffs by mouth every 6 hours as needed for Cough, Shortness of Breath or Wheezing. 18 g 1 07/06/19 24 Active Ferrous Sulfate 325 (65 Fe) MG Oral Tablet (FeroSul)Indicatio ns:Iron deficiency anemia, unspecified iron deficiency anemia type Take 1 Tablet by mouth in the morning and 1 Tablet before bedtime. 60 Tablet 1 07/11/19 24 Active Warfarin Sodium 10 MG Oral Tablet (Coumadin)Indicati ons:Peripheral vascular disease, unspecified (HCC),Encounter for monitoring Coumadin therapy,Iliac artery stenosis, right (HCC) Take 1.5- 2 tablets by mouth daily. Dosage adjustment by anticoagulation clinic. Patient aware of the tablet strength change. 60 Tablet 0 08/04/19 24 Active Additional Information Patient taking differently:15-20 mg Oral Daily(Non-Specified),Indications: pt takes 20 mg saturday and and 15 mg all other days, Reported on 08/09/2023 Pregabalin 75 MG Oral Capsule (Lyrica)Indication s:Spinal stenosis of lumbar region with neurogenic claudication Take 1 Capsule by mouth in the morning and 1 Capsule before bedtime. 60 Capsule 5 08/09/19 24 Active Ozempic (0.25 or 0.5 MG/DOSE) 2 MG/3ML Solution Pen-injector (Semaglutide(0.25 or 0.5MG/DOS))Indicat ions:Type 2 diabetes mellitus with hemoglobin A1c goal of less than 7.0% (HCC) Inject 0.25 mg under the skin once a week. 3 mL 0 08/09/19 24 Active Doxycycline Hyclate 100 MG Oral CapsuleIndications :Skin lesion Take 1 Capsule by mouth in the morning and 1 Capsule before bedtime for 10 days until gone. 20 Capsule 0 09/04/19 24 024 Active Varenicline Tartrate 0.5 MG Oral Tablet (Chantix)Indicatio ns:Tobacco use Take 1 Tablet by mouth in the morning and 1 Tablet in the evening. 53 Tablet 0 10/30/19 23 024 Discontinued documented as of this encounter (statuses as [...] Date Polyneuropathy, unspecified 07/23/2022 03/11/2023 Atherosclerosis of [place] artery of extremity 06/27/1903/11/2023 Cellulitis of right [...] for divorce while he was hospitalized in [place]. She gave him enough money for a plane ticket to [place] to live with an old friend. He does not work and is trying to apply for social security. Would appreciate any resources. Referral placed for [facility] to assist. Assistance needed with transportation [...] Has problems with transportation. Referral placed within [facility] for assistance. Advanced care planning/counseling discussion 03/11/2023 Last Assessment & Plan: He would benefit from advanced care planning discussions. Mentioned during the visit he wishes for NO CPR or intubation. Willing to fill out a POLST form to document his wishes. Reports "when my time is up, it's up". Note sent to [facility] gardening manager for discussion at next visit. Iliac artery stenosis, right 03/05/2022 03/11/2023 Last Assessment & Plan: CT abd/pelvis 02/2022 at [facility] revealed occlusion of right internal iliac artery with distal reconstitution. Vascular surgery was consulted and no intervention was needed. He was started on warfarin for anticoagulation. Following with anticoagulation clinic. Recommended he should follow routinely with Vascular surgery. Again, problems with transportation. Referral placed for assistance from [facility] for resources. Toe ulcer, left, limited [...] Cigarettes 0.2 44 Cigars Smokeless Tobacco: Former Tobacco Cessation:Ready to Q uit: Not Asked; Counseling Given: Not Answered Comments:2 cigars a day Alcohol Use Standard [...] Sign Reading Time Taken Comments Blood Pressure 154/90 09/04/2023 11:28 AM EDT Pulse 71 09/04/2023 11:28 AM EDT Temperature 36.4 C (97.6 F) 09/04/2023 11:28 AM E DT Respiratory Rate - - Oxygen Saturation 96% 09/04/2023 11:28 AM EDT Inhaled Oxygen Concentration - - Weight 154.2 kg (340 lb) 09/04/2023 11:28 AM EDT Height - - Body Mass Index 50.21 08/09/2023 11:05 AM EDT documented in this encounter Progress Notes * Evelia Shepherd, - 09/04/2023 11:40 AM EDT Subjective: Madhuri Carmona is a 57 year old male. Chief Complaint Patient presents with Acute Multiple open sores on right lower leg and many spontaneous bruising about the body. There are no exam notes on file for this visit. HPI: This is a 57 year old male with PMHx as below presents with ongoing/acute illness PMhx diabetes with neuropathy on meds last A1c 7.6 Asthma albuterol Chronic issues with wounds - was recently on keflex. Saw wound clinic in the past - believes they do nothing Does not feel [facility] doing their job Has issues to discuss would like to see PCP - will set up Having ongoing issues with chronic pain as well Health Maintenance Due Topic Date Due DISCUSS TOBACCO CESSATION (REFER TO SMARTSET #8165) Never done Diabetic Foot Exam 03/14/2019 Hepatitis B (2 of 2 - CpG 2-dose series) 08/20/2022 COVID-19 Vaccine () Never done Diabetic Eye Exam 02/16/2023 Albumin/Creatinine Ratio 02/16/2023 Depression Screening 02/16/2023 Patient Active Problem List Diagnosis Code Type 2 diabetes mellitus with hemoglobin A1c goal of less than 7.0% (HCC) E11.9 PVD (peripheral vascular disease) (HCC) I73.9 Super obese E66.9 Tobacco use disorder F17.200 Dyslipidemia E78.5 MEETA (obstructive sleep apnea) G47.33 Spinal stenosis of lumbar region with neurogenic claudication M48.062 Lumbar degenerative disc disease M51.36 HTN, goal below 130/80 I10 PSVT (paroxysmal supraventricular tachycardia) ([facility]) I47.10 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 Use as directed for home glucose testing 4 times daily 1 Kit 0 Lancets Use as directed. 100 Each 11 Dexcom G7 Sensor Use 1 sensor every 10 days 3 Each 11 BD Pen Needle Molly U/F 32G X 4 MM (Insulin Pen Needle) Use to inject insulin 6 times daily 300 Each5 NovoLOG FlexPen 100 UNIT/ML Subcutaneous Solution Pen-injector (insulin aspart) Inject 10 Units under the skin in the morning, at noon, and in the evening. Inject with meals. Units as per sliding scale. 45 mL 3 Ammonium Lactate 12 % External Cream (Lac-Hydrin) Apply topically to affected area 2 times a day. To affected area. 385 g 11 Glucose Blood In Vitro Strip Use as directed 4 times a day. Use up to four times a day as directed 100 Strip 5 Alcohol Prep 70 % Pad DIRECTED 100 [...] mouth in the morning. 90 Tablet 2 Ferrous Sulfate 325 (65 Fe) MG Oral [...] skin once a week. 3 mL 0 Doxycycline Hyclate 100 MG Oral Capsule Take 1 Capsule by mouth in the morning and 1 Capsule beforebedtime. Do all this for 10 days. Until gone.. 20 Capsule 0 Nitroglycerin 0.4 MG Sublingual Tablet Sublingual (Nitrostat) Place 1 Tablet under the tongue as needed for Pain, Chest. May repeat 3 times. If chest pain continues, call 911. 25 Tablet 11 Varenicline Tartrate 0.5 MG Oral Tablet (Chantix) Take 1 Tablet by mouth in the morning and 1 Tablet in the evening. (Patient not taking: Reported on 11/12/2022) 53 Tablet 0 Albuterol Sulfate HFA 108 (90 Base) MCG/ACT Inhalation Aerosol Solution Inhale 2 Puffs by mouth every 6 hours as needed for Cough, Shortness of Breath or Wheezing. 18 g 1 No current facility-administered medications for this visit. Past Medical History: Diagnosis Date MEETA (obstructive sleep apnea) 02/12/2022 Super-super obese (HCC) 02/12/2022 Past Surgical History: Procedure Laterality Date COLONOSCOPY, DIAGNOSTIC (RECTUM) N/A 03/28/2023 hemorrhoids/biopsies show hyperplastic polyps/recall 10 years/Colonoscopy/[place] INFORMATION dislocated hip surgery INFORMATION 12/2016 laminectomy from L3 to S1, Review of patient's allergies indicates: Allergen Reactions Metformin Diarrhea Family History Problem Relation Age of Onset Cancer Mother unknown Cancer Father esophageal cancer Cancer Aunt (Unspecified) paternal Family Status Relation Status Mo (Not Specified) Fa (Not Specified) AUNT (Not Specified) Social History Socioeconomic History Marital status: Spouse name: Not on file Number of children: 2 Years of education: Not on file Highest education level: Not on file Occupational History 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 maybe one beer a year Drug use: Yes Types: Marijuana Comment: daily Sexual activity: Not on file Other Topics Concern Not on file Social History Narrative Not on file Social Determinants of Health Financial Resource Strain: Not on file Food Insecurity: Food Insecurity Present (03/11/2023) Hunger Vital Sign Worried About Running Out of Food in the Last Year: Sometimes true Ran Out of Food in the Last Year: Sometimes true Transportation Needs: Not on file Physical Activity: Not on file Stress: Not on file Social Connections: Not on file Intimate Partner Violence: Not on file Housing Stability: Not on file Review of Systems: As per HPI all other ROS negative. Wt Readings from Last 3 Encounters: 09/04/23 (!) 154.2 kg (340 lb) 08/09/23 (!) 162.4 kg (358 lb) 05/22/23 (!) 165.1 kg (364 lb) Results for orders placed or performed in visit on 08/30/23 PT INR Result Value Ref Range Prothrombin Time 44.1 (H) 11.6 - 15.2 seconds INR 4.6 (H) 0.8 - 1.2 OBJECTIVE: Physical Exam: BP 154/90 (BP Site: Left Arm, BP Position: Sitting, BP Cuff Size: Large) | Pulse 71 | Temp 36.4 C(97.6 F) | Wt (!) 154.2 kg (340 lb) | SpO2 96% | BMI 50.21 kg/m | BSA 2.74 m Extremities: pos brawny LE. Pos 1 chronic open sore RLE apprx 2cm with drainage. More superior is larger wound that occurred a few weeks ago after a fall. Small <1cm wound LLE. Pos fluid filled lesions RLE luevano - likely from fluid Skin lesion (Primary) - Doxycycline Hyclate 100 MG Oral Capsule; Take 1 Capsule by mouth in the morning and 1 Capsule before bedtime. Do all this for 10 days. Until gone.. Type 2 diabetes mellitus with diabetic polyneuropathy, unspecified whether alf insulin use (HCC) Mild intermittent asthma, uncomplicated Follow-up: Return if symptoms worsen or fail to improve. | Check-out note: BP remains high - can you schedule nurse BP check with cardiology? Please send message to [facility] - pt is starting doxy as FYI Pt needs to see PCP in 10 days - has lots of issues to discuss. Thank you Evelia Shepherd DO documented in this encounter Miscellaneous Notes * Addendum Note - Evelia Shepherd DO - 09/04/2023 11:58 AM EDTAddended by: EVELIA SHEPHERD on: 09/04/2023 11:58 AM Modules accepted: Orders documented in this encounter Plan of Treatment Upcoming Encounters Date Type Department Care Team (Late st Contact Info) Description 09/13/2023 7:00 AM EDT Laboratory Lab Mobile Phlebot[facility] [address] [place] [address] [facility] Draw [address] [place] [address] 09/13/2023 6:00 PM EDT Anticoagulation Pharmacy Call Center [phone] [place] [address] [facility] [address] [facility] [place] [address] 11/12/2023 4:20 PM EDT Office Visit Family Practice [facility] [address] [facility] [place] [phone] Mauricio Lerma MD [address] [place] [address] Scheduled Orders Name Type Priority Associated Diagnoses Orde r Schedule ALBUMIN / CREATININE RATIO, URINE Lab Routine Type 2 diabetes mellitus with diabetic polyneuropathy, unspecified whether alf insulin use (HCC) Expected: 09/04/2023 (Approximate), Expires: 09/03/2024 Scheduled Procedures Name Priority Associated Diagnoses Date/Ti me COLONOSCOPY FLEXIBLE PROXIMA L DIAGNOSTIC Recall Screening for colon cancer Health Maintenance Due Date Last Done Comments DISCUSS TOBACCO CESSATION (REFER TO SMARTSET #8807) 1964 Cologuard 2009 Fecal Occult Blood Test 2009 Sigmoidoscopy 2009 Diabetic Foot Exam 03/14/2019 03/14/2018, 0 05/16/2017, 01/01/2014 Hepatitis B (2 of 2 - CpG 2-dose series) 08/20/2022 07/23/2022 COVID-19 Vaccine ( season) 2022 Albumin/Creatinine Ratio 02/16/2023 022, 05/16/2017, 12/22/2013 Depression Screening 02/16/2023 02/16/2022 Diabetic Eye Exam 02/16/2023 02/16/2022 Influenza Vaccine (FLU shot) (Season Ended) 2023 HbA1c 02/08/2024 08/09/2023, 11/06/2022, 11/12/2022, Additional history exists GFR 08/08/2024 08/09/2023, [...] of this encounter Visit Diagnoses Diagnosis Skin lesion- Primary Unspecified disorder of skin and subcutaneous tissue Type 2 diabetes mellitus with diabetic polyneuropathy, unspecified whether alf insulin use (HCC) Mild intermittent asthma, uncomplicated Unspecified asthma documented in this encounter Care Teams Building Construction Professor Relationship Specialty Start Date End Date Mauricio Lerma MD [address] [facility] [place] [address] PCP - General Family Medicine 05/22/23 documented as of this encounter
--- OUTSIDE RECORDS SUMMARY | 2023-09-16 21:28 | External Medical Summary | Summary of Care ---
Author Name Unknown Organization [facility] Address [address] [facility] [place] [address] Phone [phone] Care Team Providers Care Tube Dispatcher Name Role Phone Mauricio Lerma MD Primary Care Provider [phone] Reason for Visit * Reason Comments Dosage Adjustment Via Phone (anticoag Cl inic) Encounter Details Date Type Department Care Team (Latest Contact Info) Description 09/02/2023 6:00 AM EDT Anticoagulation Pharmacy Call Center [address] [place] [address] [facility] [address] [facility] [place] [address] Anticoagulation management encounter* Allergies Active Allergy Reactions Criticality Noted Date Comments Metformin Diarrhea 05/16/2017 documented as of this encounter (statuses as of 09/02/2023) Medications Medication Sig Dispensed Refills Start Date [...] insulin (HCC) Use as directed. 100 Each 2 Active Dexcom G7 Sensor Use 1 [...] hyperglycemia, with long-term current use of insulin ([facility]),Type 2 diabetes mellitus with peripheral vascular [...] 11 3 Active Glucose Blood In Vitro StripIndications:Ty pe 2 diabetes mellitus without complication, with long-term current use of insulin ([facility]) Use as directed 4 times a day. 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 She gave him enough money for a plane ticket to [place] to live with an old friend. He does not work and is trying to apply for social security. Would appreciate any resources. Referral placed for [facility] to assist. Assistance needed with transportation 04/19/2022 03/11/2023 [facility] 04/19/2022 03/11/2023 Last [...] Has problems with transportation. Referral placed within [facility] for assistance. Advanced care planning/counseling discussion 03/11/2023 Last Assessment & Plan: He would benefit from advanced care planning discussions. Mentioned during the visit he wishes for NO CPR or intubation. Willing to fill out a POLST form to document his wishes. Reports "when my time is up, it's up". Note sent to [facility] ancillary services manager for discussion at next visit. Iliac artery stenosis, right 03/05/2022 03/11/2023 Last Assessment & Plan: CT abd/pelvis 02/2022 at [facility] revealed occlusion of right internal iliac artery with distal reconstitution. Vascular surgery was consulted and no intervention was needed. He was started on warfarin for anticoagulation. Following with anticoagulation clinic. Recommended he should follow routinely with Vascular surgery. Again, problems with transportation. Referral placed for assistance from [facility] for resources. Toe ulcer, left, limited [...] as of this encounter (statuses as of 09/02/2023) Immunizations Name Administration Dates Next Due Hepatitis [...] as of this encounter Progress Notes * Alize Cornejo RPh - 09/02/2023 3:43 PM EDT Noted Alize Cornejo Rph, Pharm.D. Clinical Pharmacist [facility] ([facility]) (formerly Telepharmacy) [phone] 09/02/2023,3:43 PM * Luis Munoz PHARM Tech - 09/02/2023 9:18 AM EDT Contacts Type Contact Phone/Fax 09/02/2023 09:13 AM EDT Phone (Outgoing) Madhuri Carmona (Self) [phone] (M) Subjective Patient Findings Positives: Change in medications (Pt taking Ozempic recently.), Bruising (Pt has new bruising on left leg and left side of abdomen.) Negatives: Signs/symptoms of thrombosis, Signs/symptoms of bleeding, Change in health, Change in alcohol use, Change in activity, Upcoming invasive procedure, Missed doses, Extra doses, Change in diet/appetite Advised patient to contact Anticoagulation Clinic if any unusual bruising or bleeding, recent illness, changes in medication, or questions/concerns. PT/INR results, Coumadin dose instructions, and next PT/INR date communicated as noted by Pharmacist: Yes ASHA Haddad 09/02/2023, 9:18 AM * Alize Cornejo [facility] - 09/02/2023 7:55 AM EDT Images from the original note were not included. Coumadin Clinic (region specific) Objective Current Warfarin Dose As of 09/02/2023 Warfarin maintenance plan: 20 mg (5 mg x 4) every Sun, Darlene; 15 mg (5 mg x 3) all other days INR Result As of 09/02/2023 INR goal: 2.0-3.0 INR used for dosin.6 (08/30/2023) Assessment & Plan Warfarin Plan As of 09/02/2023 Full warfarin instructions: 09/01: Hold; 09/02: Hold; Otherwise 20 mg every Sun, Darlene; 15 mg all otherdays Next INR check: 09/13/2023 Repeat PT/INR in 2 week(s) Weekly dose: not changed Additional Dosing Information: Description GML (Fri only) Patient does not wish to take lovenox any longer due to bruising and pain from needles Patient takes Coumadin in AM; switched to 10 mg tablets 06/08/22 after discussion with patient. Tech to contact patient with dose instructions as noted. Alize Cornejo RPh 09/02/2023, 7:56 AM documented in this encounter Plan of Treatment Upcoming Encounters Date Type Department Care Team (Late st Contact Info) Description 09/13/2023 7:00 AM EDT Laboratory Lab Mobile Phlebotomy [facility] [address] [place] [address] [facility], [facility] Mobile Home Draw [address] [place] [address] 09/13/2023 6:00 PM EDT Anticoagulation Pharmacy Call Center [phone] [facility] [place] [address] [facility] [address] [facility] [place] [address] 11/12/2023 4:20 PM EDT Office Visit Family Practice [facility] [address] [address] Mauricio Lerma MD [address] [place] [address] Scheduled Procedures Name Priority Associated Diagnoses Date/Ti me COLONOSCOPY FLEXIBLE PROXIMA L DIAGNOSTIC Recall Screening for colon cancer Health Maintenance Due Date Last Done Comments DISCUSS TOBACCO CESSATION (REFER TO SMARTSET #1165) 1964 Cologuard 2009 Fecal Occult Blood Test 2009 Sigmoidoscopy 2009 Diabetic Foot Exam 03/14/2019 03/14/2018, 0 05/16/2017, 01/01/2014 Hepatitis B (2 of 2 - CpG 2-dose series) 08/20/2022 07/23/2022 COVID-19 Vaccine ( season) 2022 Albumin/Creatinine Ratio 02/16/202302/16/2 022, 05/16/2017, 12/22/2013 Depression Screening 02/16/2023 02/16/2022 Diabetic Eye Exam 02/16/2023 02/16/2022 Influenza Vaccine (FLU shot) (Season Ended) 2023 HbA1c 02/08/2024 08/09/2023, 110 06/2022, 11/12/2022, Additional history exists GFR 08/08/2024 [...] as of this encounter Visit Diagnoses Diagnosis Anticoagulation management encounter- Primary Encounter for therapeutic drug monitoring documented in this encounter Care Teams Tube Dispatcher Relationship Specialty Start Date End Date Mauricio Lerma MD [address] [facility] [place] [address] PCP - General Family Medicine 05/22/23 documented as of this encounter
--- OUTSIDE RECORDS SUMMARY | 2023-09-16 21:28 | External Medical Summary | Summary of Care ---
Author Name Unknown Organization [facility] Address [address] [place] [facility] [place] [address] Phone [phone] Care Team Providers Care Gasateria Attendant Name Role Phone Mauricio Lerma MD Primary Care Provider [phone] Reason for Visit * Reason Comments Dosage Adjustment Via Phone (anticoag Cl inic) Encounter Details Date Type Department Care Team (Latest Contact Info) Description 08/09/2023 6:00 PM EDT [facility]tico[facility] [address] [facility] [address] [facility] [address] [facility] [address] Iliac artery stenosis, right ([facility])* Allergies Active Allergy Reactions Criticality Noted Date Comments Metformin Diarrhea 05/16/2017 documented as of this encounter (statuses as of 08/09/2023) Medications Medication Sig Dispensed Refills Start Date End Date Status D-Care Glucometer w/Device KitIndications:Type 2 diabetes mellitus without complication, with long-term current use of insulin ([facility]) Use as directed . Use as directed for home glucose testing 4 times daily 1 Kit 0 2 Active LancetsIndications: Type 2 diabetes mellitus without complication, with long-term current use of insulin ([facility]) Use as directed. 100 Each 11 2 Active Dexcom G7 Sensor Use 1 sensor every 10 days 3 Each 3 Active BD Pen Needle Molly U/F 32G X 4 MM (Insulin Pen Needle)Indications: Type 2 diabetes mellitus with hemoglobin A1c goal of less than 7.0% ([facility]) Use to inject insulin 6 times [...] hyperglycemia, with long-term current use of insulin ([facility]),Type 2 diabetes mellitus with peripheral vascular [...] complication, with long-term current use of insulin ([facility]) Use as directed 4 times a day. 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 He does not work and is trying to apply for social security. Would appreciate any resources. Referral placed for [facility] to assist. Assistance needed with transportation 04/19/2022 03/11/2023 Hypertensive heart disease w [facility] congestive heart failure 04/19/2022 03/11/2023 Last Assessment [...] Has problems with transportation. Referral placed within [facility] for assistance. Advanced care planning/counseling discussion 03/11/2023 Last Assessment & Plan: He would benefit from advanced care planning discussions. Mentioned during the visit he wishes for NO CPR or intubation. Willing to fill out a POLST form to document his wishes. Reports "when my time is up, it's up". Note sent to [facility] cyber security manager for discussion at next visit. Iliac artery stenosis, right 03/05/2022 03/11/2023 Last Assessment & Plan: CT abd/pelvis 02/2022 at [facility] revealed occlusion of right internal iliac artery with distal reconstitution. Vascular surgery was consulted and no intervention was needed. He was started on warfarin for anticoagulation. Following with anticoagulation clinic. Recommended he should follow routinely with Vascular surgery. Again, problems with transportation. Referral placed for assistance from [facility] for resources. Toe ulcer, left, limited [...] as of this encounter Progress Notes * Candace Leung, [facility] - 08/09/2023 2:13 PM EDT Noted - thank you. As patient is unwilling to increase dose at this time, ACC tracker updated to reflect dosing patient is taking. As INR is subtherapeutic, I truly do not believe warfarin is contributing to skin bumps/bleeding. I agree with the plan that patient should follow-up with PCP and even consider seeing dermatology if needed. ACC to follow-up as scheduled. Thanks, Candace Leung PharmD Clinical Pharmacist Centralized Clinical Pharmacy Services (CCPS) (Formerly Telepharmacy) [phone] 08/09/2023 2:16 PM * Sharon Wyatt PHARM Tech - 08/09/2023 1:33 PM EDT Contacts Type Contact Phone/Fax 08/09/2023 01:16 PM EDT Phone (Outgoing) Madhuri Carmona (Self) [phone] (M) Spoke to Patient Subjective Patient Findings Positives: Signs/symptoms of bleeding (Patient reports small red blister like bumps on skin that bleed often), Missed doses (Patient takes 20mg on Sun, Thurs; 15mg all other days. Spoke with dilan Maria who advised: bolus dose today of 20 mg and then he can resume the 20 mg Thurs, Sun and 15 mg allothers since he does not want to inc dose at this time.), Bruising (Woke up past week with large bru ise around arm, did not bump arm that he recalls) Negatives: Change in health, Change in activity, Upcoming invasive procedure, Extra doses, Change in medications, Change in diet/appetite Comments: Patient states he will not take higher dose than what he is currently taking. He is goingto talk to PCP regarding skin bumps, and to see if he could possibly be switched to some other medication in the future. States he has had a lot of ongoing issue with the warfarin for the past few years. Advised patient to contact Anticoagulation Clinic if any unusual bruising or bleeding, recent illness, changes in medication, or questions/concerns. PT/INR results, Coumadin dose instructions, and next PT/INR date communicated as noted by Pharmacist: Yes ASHA BEE 08/09/2023, 1:33 PM * Alize Cornejo [facility] - 08/09/2023 1:09 PM EDT Images from the original note were not included. Coumadin Clinic (region specific) Objective Current Warfarin Dose As of 08/09/2023 Warfarin maintenance plan: 15 mg (5 mg x 3) every Mon, Wed, Fri; 20 mg (5 mg x 4) all other days INR Result As of 08/09/2023 INR goal: 2.0-3.0 INR used for dosin.3 (08/09/2023) Assessment & Plan Warfarin Plan As of 08/09/2023 Full warfarin instructions: 08/08: 25 mg; Otherwise 15 mg every Mon, Fri; 20 mg all other days Next INR check: 08/23/2023 Repeat PT/INR in 2 week(s) Weekly dose: increased Additional Dosing Information: Description GML (Fri only) Patient does not wish to take lovenox any longer due to bruising and pain from needles Patient takes Coumadin in AM; switched to 10 mg tablets 06/08/22 after discussion with patient. Tech to contact patient with dose instructions as noted. Alize Cornejo RPh 08/09/2023, 1:12 PM documented in this encounter Plan of Treatment Upcoming Encounters Date Type Department Care Team (Late st Contact Info) Description 08/26/2023 6:00 AM EDT Anticoagulation Pharmacy Call Center WB [address] [facility] [place] [address] [facility] [address] [facility] [place] [address] 11/12/2023 4:20 PM EDT Office Visit Family [facility] [address] [place] [address] Mauricio Lerma MD [address] [place] [address] Scheduled Procedures Name Priority Associated Diagnoses Date/Ti me COLONOSCOPY FLEXIBLE PROXIMA L DIAGNOSTIC Recall Screening for colon cancer Health Maintenance Due Date Last Done Comments DISCUSS TOBACCO CESSATION (REFER TO SMARTSET #7039) 1965 Cologuard 2009 Fecal Occult Blood Test [...] shot) (Season Ended) 2023 GFR 03/22/2024 03/22/2023, 1106/2022, 11/12/2022, Additional history exists DTaP,Tdap,and Td Vaccines [...] as of this encounter Visit Diagnoses Diagnosis Iliac artery stenosis, right (HCC)- Primary Stricture of artery documented in this encounter Care Teams Gasateria Attendant Relationship Specialty Start Date End Date Mauricio Lerma MD [address] [place] [address] PCP - General Family Medicine 05/22/23 documented as of this encounter
--- OUTSIDE RECORDS SUMMARY | 2023-09-16 21:28 | External Medical Summary ---
Author Name Unknown Address Unknown Organization [id number]:[facility] - [address] [place] [address] Laboratory Report Ordering Provider Test Date Status ROCKY STOVER 07/26/2023 07:18:00 Final Please draw PT/INR every 1-4 weeks or as requested by the [facility] Coumadin Clinic

Warfarin Therapy
INR: 2.0-3.0 conventional anticoagulation
INR: 2.5-3.5 high intensity anticoagulation Observation Date Value Abnormality Reference (Units ) Status PT 07/26/2023 07:18:00 21.1 Above high normal 11 .6-15.2 (seconds) Final INR 07/26/2023 07:18:00 1.8 Above high normal 0. 8-1.2 Final Performing Location [facility] - [address] [place] [address]
--- OUTSIDE RECORDS SUMMARY | 2023-09-16 21:28 | External Medical Summary | Summary of Care ---
Author Name Unknown Organization [facility] Address [address] [place] [address] Phone [phone] Care Team Providers Care Flue Blower Name Role Phone Mauricio Lerma MD Primary Care Provider [phone] Reason for Visit * Reason Comments Dosage Adjustment Via Phone (anticoag Cl inic) Encounter Details Date Type Department Care Team (Latest Contact Info) Description 07/29/2023 6:00 AM EDT Anticoagulation Pharmacy Call Center [phone] [place] [address] [facility] [address] [facility] [place] [address] Anticoagulation management encounter* Allergies Active Allergy Reactions Criticality Noted Date Comments Metformin Diarrhea 05/16/2017 documented as of this encounter (statuses as of 07/29/2023) Medications Medication Sig Dispensed Refills Start Date [...] hemoglobin A1c goal of less than 7.0% ([facility]) Use to inject insulin 6 times daily 300 Each 5 3 Active Metoprolol Succinate ER 50 MG Oral Tablet Extended Release 24 Hour (toPROL XL) Take 1 Tablet by mouth in the morning. 90 Tablet 3 3 Active Nitroglycerin 0.4 MG Sublingual Tablet Sublingual (Nitrostat)Indicati ons:Angina pectoris ([facility]) Place 1 Tablet under the tongue as needed for Pain, Chest. May repeat 3 times. If chest pain continues, call 911. 25 Tablet 11 3 Active NovoLOG FlexPen 100 UNIT/ML Subcutaneous Solution Pen-injector (insulin aspart)Indications: Type 2 diabetes mellitus with hyperglycemia, with long-term current use of insulin ([facility]),Type 2 diabetes mellitus with peripheral vascular disease (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) Inject 10 Units under the skin in [...] Oral Tablet (Coumadin)Indicatio ns:Peripheral vascular disease, unspecified ([facility]),Encounter for monitoring Coumadin therapy,Iliac artery stenosis, right ([facility]) Take 1.5- 2 tablets by mouth daily. Dosage adjustment by anticoagulation clinic. Patient aware of the tablet strength change. 60 Tablet 1 4 Active Glucose Blood In Vitro StripIndications:Ty pe 2 diabetes mellitus without complication, with long-term current use of insulin ([facility]) Use as directed 4 times a day. Use up to four times a day as directed 100 Strip 4 Active Alcohol Prep 70 % Pad DIRECTED 100 Each 5 4 Active Insulin Glargine 100 UNIT/ML Subcutaneous Solution (Lantus)Indications :Type 2 diabetes mellitus with hyperglycemia, with long-term current use of insulin ([facility]),Type 2 diabetes mellitus with peripheral vascular disease [...] gangrene, with long-term current use of insulin ([facility]) Take 1 Tablet by mouth in the [...] before bedtime. 60 Tablet 1 4 Active documented as of this encounter (statuses as of 07/29/2023) Active Problems Problem Noted Date Diagnosed Date [...] as of this encounter (statuses as of 07/29/2023) Resolved Problems Problem Noted Date Diagnosed Date Resolved Date Polyneuropathy, unspecified 07/23/2022 03/11/2023 Atherosclerosis of [place] artery of extremity 06/27/1903/11/2023 Cellulitis of right [...] for divorce while he was hospitalized in [place]. She gave him enough money for a plane ticket to [place] to live with an old friend. He does not work and is trying to apply for social security. Would appreciate any resources. Referral placed for [facility] to assist. Assistance needed with transportation 04/19/2022 03/11/2023 Hypertensive heart disease w [facility] congestive heart failure 04/19/2022 03/11/2023 Last [...] Has problems with transportation. Referral placed within [facility] for assistance. Advanced care planning/counseling discussion 03/11/2023 Last Assessment & Plan: He would benefit from advanced care planning discussions. Mentioned during the visit he wishes for NO CPR or intubation. Willing to fill out a POLST form to document his wishes. Reports "when my time is up, it's up". Note sent to [facility] human resources project manager for discussion at next visit. Iliac artery stenosis, right 03/05/2022 03/11/2023 Last Assessment & Plan: CT abd/pelvis 02/2022 at [facility] revealed occlusion of right internal iliac artery with distal reconstitution. Vascular surgery was consulted and no intervention was needed. He was started on warfarin for anticoagulation. Following with anticoagulation clinic. Recommended he should follow routinely with Vascular surgery. Again, problems with transportation. Referral placed for assistance from [facility] for resources. Toe ulcer, left, limited [...] as of this encounter (statuses as of 07/29/2023) Immunizations Name Administration Dates Next Due Hepatitis [...] Progress Notes * Alize Cornejo RPh - 07/29/2023 10:14 AM EDT Noted Alize Cornejo Rph, Pharm.D. Clinical Pharmacist [facility] (formerly Tele[facility]) [phone] 07/29/2023,10:14 AM * January Gilliam PHARM Tech - 07/29/2023 8:09 AM EDT Contacts Type Contact Phone/Fax 07/29/2023 08:07 AM EDT Phone (Outgoing) Madhuri Carmona (Self) [phone] (M) Subjective Patient Findings Positives: Bruising Negatives: Signs/symptoms of bleeding, Change in health, Change in activity, Upcoming invasive procedure, Missed doses, Extra doses, Change in medications, Change in diet/appetite Bruising: Patient's present status and/or INR do not dictate an adjustment in warfarin dosage at this time, however, counseled patient on concerns over unusual bruising. Discussed with patient that being on warfarin will make them bruise easier and if patient's bruises become larger in size or darker in color to contact the Anticoagulation Clinic. Advised patient to contact Anticoagulation Clinic if any unusual bruising or bleeding, recent illness, changes in medication, or questions/concerns. PT/INR results, Coumadin dose instructions, and next PT/INR date communicated as noted by Pharmacist: Yes ASHA REED 07/29/2023, 8:09 AM * Alize Cornejo RPh - 07/29/2023 8:03 AM EDT Images from the original note were not included. Coumadin Clinic (region specific) Objective Current Warfarin Dose As of 07/29/2023 Warfarin maintenance plan: 15 mg (5 mg x 3) every Mon, Wed, Fri; 20 mg (5 mg x 4) all other days INR Result As of 07/29/2023 INR goal: 2.0-3.0 INR used for dosin.8 (07/26/2023) Assessment & Plan Warfarin Plan As of 07/29/2023 Full warfarin instructions: 07/28: 25 mg; Otherwise 15 mg every Mon, Wed, Fri; 20 mg all other days Next INR check: 08/09/2023 Repeat PT/INR in 2 week(s) Weekly dose: not changed Additional Dosing Information: Description GML (Sat only) Patient does not wish to take lovenox any longer due to bruising and pain from needles Patient takes Coumadin in AM; switched to 10 mg tablets 06/08/22 after discussion with patient. Tech to contact patient with dose instructions as noted. Alize Cornejo RPh 07/29/2023, 8:03 AM documented in this encounter Plan of Treatment Upcoming Encounters Date Type Department Care Team (Late st Contact Info) Description 08/12/2023 6:00 AM EDT Anticoagulation Pharmacy Call Center WB [address] [facility] [place] [address] [facility] [address] [facility] [place] [address] Scheduled Procedures Name Priority Associated Diagnoses Date/Ti me COLONOSCOPY FLEXIBLE PROXIMA L DIAGNOSTIC Recall Screening for colon cancer Health Maintenance Due Date Last Done Comments DISCUSS TOBACCO CESSATION (REFER TO SMARTSET #[id number]) 1965 Pap Smear 1985 Cervical Cancer Screening [...] monitoring documented in this encounter Care Teams Flue Blower Relationship Specialty Start Date End Date Mauricio Lerma MD [address] [place] [address] PCP - General Family Medicine 05/22/23 documented as of this encounter
--- OUTSIDE RECORDS SUMMARY | 2023-09-16 21:28 | External Medical Summary | Summary of Care ---
Author Name Unknown Organization [facility] Address [address] [facility] [place] [place] [address] Phone [phone] Care Team Providers Care Metal Fabricator Helper Name Role Phone Mauricio Lerma MD Primary Care Provider [phone] Reason for Visit * Reason Comments Acute Multiple open sores on right lower leg and many spontaneous bruising about the body. Encounter Details Date Type Department Care Team (Latest Contact Info) Description 09/04/2023 11:20 AM EDT Office Visit [facility] [address] [place] [address] Evelia Shepherd DO [address] [place] [address] Skin lesion*; Type 2 diabetes mellitus with diabetic polyneuropathy, unspecified whether long goods drier insulin use (HCC); Mild intermittent asthma, uncomplicated [...] hemoglobin A1c goal of less than 7.0% ([facility]) Use to inject insulin 6 times daily 300 Each 08/17/19 23 Active Nitroglycerin 0.4 MG Sublingual Tablet Sublingual (Nitrostat)Indicat ions:Angina pectoris ([facility]) Place 1 Tablet under the tongue as needed for Pain, Chest. May repeat 3 times. If chest pain continues, call 911. 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 She gave him enough money for a plane ticket to [place] to live with an old friend. He does not work and is trying to apply for social security. Would appreciate any resources. Referral placed for [facility] to assist. Assistance needed with transportation [...] Has problems with transportation. Referral placed within [facility] for assistance. Advanced care planning/counseling discussion 03/11/2023 Last Assessment & Plan: He would benefit from advanced care planning discussions. Mentioned during the visit he wishes for NO CPR or intubation. Willing to fill out a POLST form to document his wishes. Reports "when my time is up, it's up". Note sent to [facility] software configuration manager for discussion at next visit. 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 Vascular surgery was consulted and no intervention was needed. He was started on warfarin for anticoagulation. Following with anticoagulation clinic. Recommended he should follow routinely with Vascular surgery. Again, problems with transportation. Referral placed for assistance from [facility] for resources. 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 ([facility]) E11.621, L97.509 Type 2 diabetes mellitus with diabetic polyneuropathy ([facility]) E11.42 Mild intermittent asthma, uncomplicated J45.20 Current [...] diabetes mellitus with diabetic polyneuropathy, unspecified whether longterm insulin use (HCC) Mild intermittent asthma, uncomplicated [...] Mobile Phlebotomy [facility] [address] [place] [address] [facility] [address] [place] [address] 09/13/2023 6:00 PM EDT Anticoagulation Pharmacy Call Center [address] [place] [address] [facility] [address] [facility] [place] [address] 11/12/2023 4:20 PM EDT Office Visit Family Practice [facility] [address] [facility] [place] [id number] Mauricio Lerma MD [address] [place] [address] Scheduled Orders Name Type Priority Associated Diagnoses Orde r Schedule ALBUMIN / CREATININE RATIO, URINE Lab Routine Type 2 diabetes mellitus with diabetic polyneuropathy, unspecified whether longterm insulin use (HCC) Expected: 09/04/2023 (Approximate), Expires: 09/03/2024 Scheduled Procedures Name Priority Associated Diagnoses Date/Ti me COLONOSCOPY FLEXIBLE PROXIMA L DIAGNOSTIC Recall Screening for colon cancer Health Maintenance Due Date Last Done Comments DISCUSS TOBACCO CESSATION (REFER TO SMARTSET #[id number]) 1965 Cologuard 2009 Fecal Occult Blood Test [...] diabetes mellitus with diabetic polyneuropathy, unspecified whether longterm insulin use (HCC) Mild intermittent asthma, uncomplicated Unspecified asthma documented in this encounter Care Teams Metal Fabricator Helper Relationship Specialty Start Date End Date Mauricio Lerma MD [address] [facility] [place] [address] PCP - General Family Medicine 05/22/23 documented as of this encounter
--- OUTSIDE RECORDS SUMMARY | 2023-09-16 21:28 | External Medical Summary | Summary of Care ---
Author Name Unknown Organization [facility] Address [address] [facility] [place] [address] Phone [phone] Care Team Providers Care Fitness Coordinator Name Role Phone Mauricio Lerma MD Primary Care Provider [phone] Reason for Visit * Reason Comments Acute Multiple open sores on right lower leg and many spontaneous bruising about the body. Encounter Details Date Type Department Care Team (Late st Contact Info) Description 09/04/2023 11:20 AM EDT Office Visit [facility] ([place], [place]) [address] [place] [address] Evelia Sehpherd DO [address] [place] [address] Skin lesion*; Type 2 diabetes mellitus with diabetic polyneuropathy, unspecified whether penitentiary insulin use (HCC); Mild intermittent asthma, uncomplicated; Type 2 diabetes mellitus with diabetic polyneuropathy, with long-term current use of insulin (HCC); DM type 2 nursing care encounter ([facility]) Allergies Active Allergy Reactions Criticality Noted Date [...] 4 times daily 1 Kit 0 02/09/20 Active LancetsIndications :Type 2 diabetes mellitus without complication, with long-term current use of insulin (HCC) Use as directed. 100 Each 11 10/20/20 22 Active Dexcom G7 Sensor Use 1 sensor every 10 days 3 Each 08/17/19 23 Active BD Pen Needle Molly U/F 32G X 4 MM (Insulin Pen Needle)Indications :Type 2 diabetes mellitus with hemoglobin A1c goal of less than 7.0% ([facility]) Use to inject insulin 6 times daily 300 Each 08/17/19 23 Active Nitroglycerin 0.4 MG Sublingual Tablet Sublingual (Nitrostat)Indicat ions:Angina pectoris ([facility]) Place 1 Tablet under the tongue as needed for Pain, Chest. May repeat 3 times. If chest pain continues, call 911. 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 28 Patch 1 05/22/19 24 Active Metoprolol Succinate ER 50 MG Oral Tablet Extended Release 24 Hour (toPROL XL)Indications:ASC VD (arteriosclerotic cardiovascular disease) Take 1 Tablet by mouth in the morning. 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 He does not work and is trying to apply for social security. Would appreciate any resources. Referral placed for [facility] to assist. Assistance needed with transportation [...] Has problems with transportation. Referral placed within [facility] for assistance. Advanced care planning/counseling discussion 03/11/2023 Last Assessment & Plan: He would benefit from advanced care planning discussions. Mentioned during the visit he wishes for NO CPR or intubation. Willing to fill out a POLST form to document his wishes. Reports "when my time is up, it's up". Note sent to [facility] appointment manager for discussion at next visit. 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 Vascular surgery was consulted and no intervention was needed. He was started on warfarin for anticoagulation. Following with anticoagulation clinic. Recommended he should follow routinely with Vascular surgery. Again, problems with transportation. Referral placed for assistance from [facility] for resources. Toe ulcer, left, limited [...] 11:05 AM EDT documented in this encounter Patient Instructions * Patient Instructions* La Le, MED ASSIST - 09/04/2023 12:23 PM EDT Images from the original note were not included. Diabetes: Keeping Feet Healthy Inspect your feet every day for signs of a problem. Diabetes can damage nerves in your feet and cause neuropathy. This condition makes it hard for you to feel injuries or sore spots. Diabetes can also change blood flow, making it harder for small problems, like a blister, to heal properly. In fact, minor injuries can quickly become serious infections that send you to the hospital. Practice self-care to protect your feet and keep them healthy. Take Special Care Inspect your feet daily for problems such as redness, blisters, cracks, dry skin, or numbness. Use a mirror to see the bottoms of your feet. Or, ask for help. Manage your diabetes. Monitor and control your blood sugar. Take all your medications as prescribed. Avoid walking barefoot, even indoors. Wash your feet with warm water and mild soap. Dry well, especially between toes. Dont treat corns or calluses yourself. Talk to your doctor or yardage control clerk (a doctor who specializes in foot care) if you need assistance trimming your toenails. Use moisturizing cream or lotion if you have dry skin, but dont use it between toes. Dont use heating pads on your feet. If you have neuropathy, you could get a burn and not feel it. Stop smoking. Smoking restricts blood flow and can make it harder for wounds to heal. Have Regular Checkups Foot problems can develop quickly. So be sure to follow your healthcare teams schedule for regular checkups. During office visits, take off your shoes and socks as soon as you get in the exam room. Ask your healthcare provider to examine your feet for problems. This will make it easier to find and treat small skin irritations before they get worse. Regular checkups can also help keep track of the blood flow and feeling in your feet. If you have neuropathy, you may need to have checkups more often. Wear Proper Footwear Wearing proper footwear is very important. If areas of your feet have been damaged by too much pressure, your healthcare provider may recommend changing your footwear. In some cases, avoiding high heels or tight work boots may be all thats needed. Or, your healthcare provider may recommend special shoes or custom inserts. These help protect your feet and keep existing irritations from getting worse. If you need special footwear, ask your healthcare provider if you qualify for [employer] diabetic shoe program. Make Sure Shoes and Socks Fit Any pair of shoes--new or old--should feel comfortable as soon as you put them on. There shouldnt be any rubbing when you walk. Wear the right shoe for any activity. For instance, a running shoe is designed to keep your feet injury-free while jogging. Buy shoes at the end of the day, when your feet are larger. Make sure they provide support without feeling too loose. Make sure your socks fit, t oo. Wear soft, seamless, well-padded socks for activity. Cotton or microfiber socks are best to help to absorb sweat. To protect your feet, avoid shoes that are open-toed or open-heeled. If you have questions about what kinds of shoes and socks are best, talk to your healthcare team. Get Regular Exercise Regular exercise improves blood flow in your feet. It also increases foot strength and flexibility.Gentle exercises, like walking or riding a stationary bicycle, are best. You can also do special foot exercises. Just be sure to talk with your healthcare provider before starting any exercise program. Also mention if any exercise causes pain, redness, or other signs of foot problems. Note: If you have any kind of break in the skin of your foot or ankle, keep the area clean. Then call your doctor--especially if the area doesnt appear to be healing. [id number] [employer], [address] [place] [address], [place] [address]. All rights reserved. This information is not intended as a substitute for professional medical care. Always follow your healthcare professional's instructions. Diabetic Retinopathy: Evaluating Your Eyes Diabetic retinopathy is a condition that happens when diabetes damages blood vessels in the rear ofthe eye. It can lead to vision loss. To help catch it early, have a complete dilated eye exam at least once a year. During the exam, the eye healthcare provider will review your medical history, examine your eyes, and check your vision. Women who are and have pre-existing type 1 or type 2 diabetes have an increased risk of retinopathy. Women with diabetes should have an eye exam before or in the first trimester. They should continue to be monitored every trimester and for 1 year after delivery, depending on the severity of the retinopathy. The retina is the light-sensitive part of the eye that allows you to see. High blood sugar can damage blood vessels of the retina and cause them to leak or bleed. This damage can lead to abnormal blood vessel growth. This condition is called diabetic retinopathy. You may not have symptoms early in the disease. Later, there may be floaters, blurred vision, or poor night vision. There may also be partial or complete vision loss. Early cases of diabetic retinopathy can be treated by carefully controlling blood sugar, blood pressure, and cholesterol. Surgery or laser treatments may help restore lost vision. Laser surgery can shrink abnormal blood vessels or close ones that are leaking. Medicines injected in the eye can help decrease swelling of the retina. Home care Take all medicines, including insulin or oral diabetic medicine, exactly as prescribed. Follow the diet advised by your healthcare provider. If you have high cholesterol, follow a low-fat, low-cholesterol diet. Monitor blood sugars as advised. Try to achieve your ideal weight. If you smoke, quit smoking. Tobacco use worsens the effect of diabetes on your blood vessels. If you have high blood pressure, consider buying an automatic blood pressure machine. These are available at most pharmacies. Use this to monitor your blood pressure. Report your blood pressure readings to your healthcare provider. Exercise regularly. Follow-up care Follow up with your healthcare provider, or as advised. You must have a complete eye exam at least once a year, more often if needed. Untreated diabetic retinopathy can lead to complete loss of vision. Occupational therapists can help you adapt to any vision loss you have, including learning techniques to safely administer insulin. When to seek medical advice Call your healthcare provider right away if any of these occur. Increasing blurriness or any sudden changes in your vision Sudden flashes of light inside your eye New floaters (small dots or strings that seem to be moving across your field of vision) Eye pain, redness, or discharge from your eyelid New dark spots appearing in your field of vision Halos around lights Dimness of vision Partial or complete loss of vision Women with diabetes should have a complete eye exam before becoming , or as soon as possible when they find out they are . Retinopathy sometimes worsens during . Your eye exam Your eye healthcare provider uses an eye chart and other tools to check your vision. Then he or sheexamines your eyes for signs of disease. You are given eye drops to widen (dilate) your pupils. Youmay have one or more of the following tests: Tonometry to measure fluid pressure inside the eye. Slit lamp exam to allow the healthcare provider to view the structures of your eye. Ultrasound to create an image of the eye using sound waves. Ultrasound may be used if blood is found in the clear gel that fills the eye (vitreous). Ocular coherence tomography (OCT) to create an image of the retina using light waves. This shows ifthere is fluid leaking into certain parts of the eye. It can also measure the thickness of the retina. Fluorescein angiography This test may be done to check the health of the inside lining of the eye (retina). It also checks the tiny blood vessels (capillaries) that carry blood to the retina. During the test: Photographs are taken of the retina. A dye is then injected into the bloodstream through the arm or hand. The dye travels to the capillaries in the eye. More photographs are taken of the retina. The dye causes the capillaries to stand out on the photographs. You may feel brief nausea during the procedure. For a few hours after the test, your skin, eyes, and urine may appear yellow. Talk with your healthcare provider for more information about this test. Date Last Reviewed: 09/21/201519990965-6083 [employer]. [address] [place] [address], [place] [address]. All rights reserved. This information is not intended as a substitute for professional medical care. Always follow your healthcare professional's instructions. documented in this encounter Progress Notes * La Le MED ASSIST - 09/04/2023 12:24 PM EDT Images from the original note were not included. The importance of having a yearly diabetic eye exam has been discussed with patient. Order and/or Referral placed along with patient instructions. Provider made aware. SARINA Lopez The importance of having a yearly diabetic eye exam has been discussed with patient. Order and/or Referral placed along with patient instructions. Provider made aware. SARINA Lopez Diabetic Retinopathy: Evaluating Your Eyes Diabetic retinopathy is a condition that happens when diabetes damages blood vessels in the rear ofthe eye. It can lead to vision loss. To help catch it early, have a complete dilated eye exam at least once a year. During the exam, the eye healthcare provider will review your medical history, examine your eyes, and check your vision. Women who are and have pre-existing type 1 or type 2 diabetes have an increased risk of retinopathy. Women with diabetes should have an eye exam before or in the first trimester. They should continue to be monitored every trimester and for 1 year after delivery, depending on the severity of the retinopathy. The retina is the light-sensitive part of the eye that allows you to see. High blood sugar can damage blood vessels of the retina and cause them to leak or bleed. This damage can lead to abnormal blood vessel growth. This condition is called diabetic retinopathy. You may not have symptoms early in the disease. Later, there may be floaters, blurred vision, or poor night vision. There may also be partial or complete vision loss. Early cases of diabetic retinopathy can be treated by carefully controlling blood sugar, blood pressure, and cholesterol. Surgery or laser treatments may help restore lost vision. Laser surgery can shrink abnormal blood vessels or close ones that are leaking. Medicines injected in the eye can help decrease swelling of the retina. Home care Take all medicines, including insulin or oral diabetic medicine, exactly as prescribed. Follow the diet advised by your healthcare provider. If you have high cholesterol, follow a low-fat, low-cholesterol diet. Monitor blood sugars as advised. Try to achieve your ideal weight. If you smoke, quit smoking. Tobacco use worsens the effect of diabetes on your blood vessels. If you have high blood pressure, consider buying an automatic blood pressure machine. These are available at most pharmacies. Use this to monitor your blood pressure. Report your blood pressure readings to your healthcare provider. Exercise regularly. Follow-up care Follow up with your healthcare provider, or as advised. You must have a complete eye exam at least once a year, more often if needed. Untreated diabetic retinopathy can lead to complete loss of vision. Occupational therapists can help you adapt to any vision loss you have, including learning techniques to safely administer insulin. When to seek medical advice Call your healthcare provider right away if any of these occur. Increasing blurriness or any sudden changes in your vision Sudden flashes of light inside your eye New floaters (small dots or strings that seem to be moving across your field of vision) Eye pain, redness, or discharge from your eyelid New dark spots appearing in your field of vision Halos around lights Dimness of vision Partial or complete loss of vision Women with diabetes should have a complete eye exam before becoming , or as soon as possible when they find out they are . Retinopathy sometimes worsens during . Your eye exam Your eye healthcare provider uses an eye chart and other tools to check your vision. Then he or sheexamines your eyes for signs of disease. You are given eye drops to widen (dilate) your pupils. Youmay have one or more of the following tests: Tonometry to measure fluid pressure inside the eye. Slit lamp exam to allow the healthcare provider to view the structures of your eye. Ultrasound to create an image of the eye using sound waves. Ultrasound may be used if blood is found in the clear gel that fills the eye (vitreous). Ocular coherence tomography (OCT) to create an image of the retina using light waves. This shows ifthere is fluid leaking into certain parts of the eye. It can also measure the thickness of the retina. Fluorescein angiography This test may be done to check the health of the inside lining of the eye (retina). It also checks the tiny blood vessels (capillaries) that carry blood to the retina. During the test: Photographs are taken of the retina. A dye is then injected into the bloodstream through the arm or hand. The dye travels to the capillaries in the eye. More photographs are taken of the retina. The dye causes the capillaries to stand out on the photographs. You may feel brief nausea during the procedure. For a few hours after the test, your skin, eyes, and urine may appear yellow. Talk with your healthcare provider for more information about this test. Date Last Reviewed: 09/21/201519995607-2141 [employer]. [address] [place] [address]. All rights reserved. This information is not intended as a substitute for professional medical care. Always follow your healthcare professional's instructions. * La Le MED ASSIST - 09/04/2023 12:23 PM EDT DM Foot Exam completed today. Provider aware. SARINA Lopez Socks and Shoes Removed for Annual Diabetic Foot Screening RIGHT FOOT: No Reddened, Cracking, Or Open Areas Noted. RIGHT Dorsalis Pedis Pulse: Not palpable RIGHT Posterior Tibial Pulse: Not Palpable RIGHT Monofilament:Patient reports NO feeling monofilament pressure on plantar surface of foot LEFT FOOT: No Reddened, Cracking or Open Areas Noted. LEFT Dorsalis Pedis Pulse: Not Palpable LEFT Posterior Tibial Pulse: Not Palpable LEFT Monofilament:Patient reports NO feeling monofilament pressure on plantar surface of foot Do you need diabetic shoes: No * Evelia Shepherd, DO - 09/04/2023 11:40 AM EDT Subjective: Madhuri [...] Due DISCUSS TOBACCO CESSATION (REFER TO SMARTSET #9076) Never done Diabetic Foot Exam 03/14/2019 Hepatitis B (2 of 2 - CpG 2-dose series) 08/20/2022 COVID-19 Vaccine ( season) Never done Diabetic Eye Exam 02/16/2023 Albumin/Creatinine [...] below 130/80 I10 PSVT (paroxysmal supraventricular tachycardia) ([facility]) I47.10 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 (HCC) E11.621, L97.509 Type 2 diabetes mellitus with diabetic polyneuropathy (HCC) E11.42 Mild intermittent asthma, uncomplicated J45.20 Current [...] diabetes mellitus with diabetic polyneuropathy, 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 (HCC) Mild intermittent asthma, uncomplicated [...] encounter Miscellaneous Notes * Addendum Note - La Le MED ASSIST - 09/04/2023 12:24 PM EDTAddended by: LA LE on: 09/04/2023 12:24 PM Modules accepted: Orders * Addendum Note - Evelia Shepherd DO - 09/04/2023 11:58 AM EDTAddended by: EVELIA SHEPHERD on: 09/04/2023 11:58 AM Modules accepted: Orders documented in this encounter Plan of Treatment Upcoming Encounters Date Type Department Care Team (Late st Contact Info) Description 09/04/2023 1:10 PM EDT Laboratory Laboratory, [facility] [address] [place] [id number] [facility] [address] [facility] [place] [address] Arrived 09/13/2023 7:00 AM EDT Laboratory Lab Mobile Phlebotomy [facility] [address] [facility] [place] [address] [facility] Mobile Home Draw [address] [facility] [place] [address] 09/13/2023 6:00 PM EDT Anticoagulation Pharmacy Call Center [address] [place] [address] 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 (HCC) Expected: 09/04/2023 (Approximate), Expires: 09/03/2024 Scheduled Procedures Name Priority Associated Diagnoses Date/Ti me COLONOSCOPY FLEXIBLE PROXIMA L DIAGNOSTIC Recall Screening for colon cancer Health Maintenance Due Date Last Done Comments DISCUSS TOBACCO CESSATION (REFER TO SMARTSET #[id number]) 1964 Cologuard 2009 Fecal Occult Blood Test 2009 Sigmoidoscopy 2009 Hepatitis B (2 of 2 - CpG 2-dose series) 08/20/2022 07/23/2022 COVID-19 Vaccine ( season) 2022 Albumin/Creatinine Ratio 02/16/2023 022, 05/16/2017, 12/22/2013 Depression Screening 02/16/2023 02/16/2022 Diabetic Eye Exam 02/16/2023 02/16/2022 Influenza Vaccine (FLU shot) (Season Ended) 2023 HbA1c 02/08/2024 08/09/2023, 1106/2022, 11/12/2022, Additional history exists GFR 08/08/2024 08/09/2023, 12/04/2022, 02/22/2023, Additional history exists Diabetic Foot Exam 09/03/2024 09/04/2023, 1 05/14/2017, [...] diabetes mellitus with diabetic polyneuropathy, unspecified whether penitentiary insulin use (HCC) Mild intermittent asthma, uncomplicated Unspecified asthma Type 2 diabetes mellitus with diabetic polyneuropathy, with long-term current use of insulin (HCC) DM type 2 nursing care encounter (HCC) Type II or unspecified type diabetes mellitus without mention of complication, not stated as uncontrolled documented in this encounter Care Teams Fitness Coordinator Relationship Specialty Start Date End Date Mauricio Lerma MD [address] [facility] [place] [address] PCP - General Family Medicine 05/22/23 documented as of this encounter
--- OUTSIDE RECORDS SUMMARY | 2023-09-16 21:29 | External Medical Summary | Summary of Care ---
Author Name Unknown Organization [facility] Address [address] [address] Phone [phone] Care Team Providers Care Oil Inspector Name Role Phone Mauricio Lerma MD Primary Care Provider [phone] Reason for Visit * Reason Onset Date Comments Medication Refill 05/16/2023 Encounter Details Date Type Department Care Team (Late st Contact Info) Description 05/16/2023 Refill Family Practice [facility] [address] [facility] [place] [address] Julio César Pulliam, DO [address] [place] [address] Type 2 diabetes mellitus without complication, with long-term current use of insulin (HCC) Allergies Active Allergy Reactions Criticality Noted Date Comments Metformin Diarrhea 05/16/2017 documented as of this encounter (statuses as of 06/06/2023) Medications Medication Sig Dispensed Refills Start Date End Date Status D-Care Glucometer w/Device KitIndications:Type 2 diabetes mellitus without complication, with long-term current use of insulin (HCC) Use as directed . Use as directed for home glucose testing 4 times daily 1 Kit 0 2 Active LancetsIndications:T ype 2 diabetes mellitus without complication, with long-term current use of insulin (HCC) Use as directed. 100 Each 11 2 Active Albuterol Sulfate HFA 108 (90 Base) MCG/ACT Inhalation Aerosol SolutionIndications: Mild intermittent reactive airway disease without complication Inhale 2 Puffs by mouth every 6 hours as needed for Cough, Shortness of Breath or Wheezing. 18 g 5 3 Active Clopidogrel Bisulfate 75 MG Oral Tablet (Plavix)Indications: Type 2 diabetes mellitus with diabetic peripheral angiopathy and gangrene, with long-term current use of insulin ([facility]) Take 1 Tablet by mouth in the morning. 90 Tablet 3 3 Active Dexcom G7 Sensor Use 1 sensor every 10 days 3 Each 3 Active DULoxetine HCl 30 MG Oral Capsule Delayed Release Particles (Cymbalta)Indication s:Spinal stenosis of lumbar region with neurogenic claudication Take 2 capsules by mouth once daily 180 Capsule 3 3 Active Gabapentin 600 MG Oral Tablet (Neurontin)Indicatio ns:Lumbar radiculopathy Take 1 Tablet by mouth in the morning and 1 Tablet at noon and 1 Tablet before bedtime. 270 Tablet 3 3 Active BD Pen Needle Molly U/F 32G X 4 MM (Insulin Pen Needle)Indications:T ype 2 diabetes mellitus with hemoglobin A1c goal of less than 7.0% ([facility]) Use to inject insulin 6 times daily 300 Each 5 3 Active Lisinopril 40 MG Oral TabletIndications:HT N, goal below 130/80 Take 1 Tablet by mouth in the morning. 90 Tablet 3 3 Active Metoprolol Succinate ER 50 MG Oral Tablet Extended Release 24 Hour (toPROL XL) Take 1 Tablet by mouth in the morning. 90 Tablet 3 3 Active Nitroglycerin 0.4 MG Sublingual Tablet Sublingual (Nitrostat)Indicatio ns:Angina pectoris ([facility]) Place 1 Tablet under the tongue as needed for Pain, Chest. May repeat 3 times. If chest pain continues, call 911. 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 Inject with meals. Units as per sliding scale. 45 mL 3 3 Active Atorvastatin Calcium 40 MG Oral Tablet (Lipitor) Take 1 Tablet by mouth in the morning. 90 Tablet 3 3 Active Varenicline Tartrate 0.5 MG Oral Tablet (Chantix)Indications :Tobacco use Take 1 Tablet by mouth in the morning and 1 Tablet in the evening. 53 Tablet 0 3 Active Additional Information Patient not taking.Reported on 11/12/2022 Ammonium Lactate 12 % External CreamIndications:Dinesh ous stasis dermatitis of both lower extremities Apply topically to affected area 2 times a day. To affected area. 385 g 11 3 Active Ferrous Sulfate 325 (65 Fe) MG Oral Tablet (Feosol)Indications: Iron deficiency anemia, unspecified iron deficiency anemia type Take 1 Tablet by mouth in the morning and 1 Tablet before bedtime. 60 Tablet 1 3 Active Warfarin Sodium 10 MG Oral Tablet (Coumadin)Indication s:Peripheral vascular disease, unspecified (HCC),Encounter for monitoring Coumadin therapy,Iliac artery stenosis, right (HCC) Take 1.5- 2 tablets by mouth daily. Dosage adjustment by anticoagulation clinic. Patient aware of the tablet strength change. 60 Tablet 1 4 Active Glucose Blood In Vitro StripIndications:Typ e 2 diabetes mellitus without complication, with long-term current use of insulin (HCC) Use as directed 4 times a day. Use up to four times a day as directed 100 Strip 5 4 Active Alcohol Prep 70 % Pad DIRECTED 100 Each 5 4 Active Acidophilus Lactobacillus Oral CapsuleIndications:A bscess of left leg Take by mouth 1 Capsule 2 times a day . 60 Capsule 5 2 024 Discontin ued(Patie nt preferenc e/discont inuation) OneTouch Ultra Blue In Vitro Strip (Glucose Blood)Indications:Ty pe 2 diabetes mellitus without complication, with long-term current use of insulin (HCC) Use as directed 4 times a day. Use up to four times a day as directed 100 Strip 5 2 024 Discontin ued(Refil l) FreeStyle Niyah 2 [place] Device Use as directed . 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 (HCC) Inject 40 units subcutaneously in the morning and 15 units in the evening 0 3 024 Discontin ued(Refil l) Isosorbide Mononitrate ER 30 MG Oral Tablet Extended Release 24 Hour (Imdur)Indications:P VC (premature ventricular contraction),PSVT (paroxysmal supraventricular tachycardia),Essenti al hypertension with goal blood pressure less than 130/80 Take 1 tablet by mouth in the morning 90 Tablet 3 3 024 Discontin ued(Refil l) Hospital, Clinic, or Other Facility Administered Medication Ordered Dose Route Frequency Start Date End Date Status Albuterol Sulfate (Proventil) (2.5 MG/3ML) 0.083% inhalation solution 2.5 mgIndications:Mild intermittent reactive airway disease without complication 2.5 mg NEBULIZER ONCE PRN 07/23/2022 05/22/2023 Discontinued documented as of this encounter (statuses as of 06/06/2023) Active Problems Problem Noted Date Diagnosed Date [...] as of this encounter (statuses as of 06/06/2023) Resolved Problems Problem Noted Date Diagnosed Date Resolved Date Polyneuropathy, unspecified 07/23/2022 03/11/2023 Atherosclerosis of [place] artery of extremity 06/27/1903/11/2023 Cellulitis of right [...] enough money for a plane ticket to [place] to live with an old friend. He does not work and is trying to apply for social security. Would appreciate any resources. Referral placed for [facility] to assist. Assistance needed with transportation 04/19/2022 03/11/2023 Hypertensive heart disease w [facility] congestive heart failure 04/19/2022 03/11/2023 [...] Has problems with transportation. Referral placed within [facility] for assistance. Advanced care planning/counseling discussion 03/11/2023 Last Assessment & Plan: He would benefit from advanced care planning discussions. Mentioned during the visit he wishes for NO CPR or intubation. Willing to fill out a POLST form to document his wishes. Reports "when my time is up, it's up". Note sent to [facility] manager coding for discussion at next visit. Iliac artery stenosis, right 03/05/2022 03/11/2023 Last Assessment & Plan: CT abd/pelvis 02/2022 at [facility] revealed occlusion of right internal iliac artery with distal reconstitution. Vascular surgery was consulted and no intervention was needed. He was started on warfarin for anticoagulation. Following with anticoagulation clinic. Recommended he should follow routinely with Vascular surgery. Again, problems with transportation. Referral placed for assistance from [facility] for resources. Toe ulcer, left, limited [...] as of this encounter (statuses as of 06/06/2023) Immunizations Name Administration Dates Next Due Hepatitis B Vaccine, Recombi nant, Adjuvanted, 20 mcg/mL (Heplisav-B) 07/23/2022 Pneumococcal Conjugate Vaccine, 20-valent (Prevn ar20) 07/23/2022 Pneumococcal Polysaccharide PPV23 (Pneumovax) TDAP (age 10 and older)(Boostrix) 05/16/2017,04/2007 Zoster Vaccine Recombinant (Shingrix) 10/29/2022 ,07/23/2022 documented as of this encounter Social History Tobacco Use Types Packs/Day Years Used Date Smoking Tobacco: Every Day Cigarettes 0.2 44 Last attempted to quit: 05/18/2022 Cigars Last attempted to quit: 05/18/2022 Smokeless Tobacco: Former Alcohol Use Standard Drinks/Week Comments No 0 [...] encounter Miscellaneous Notes * Telephone Encounter - Roya Russell - 06/06/2023 10:16 PM EST Received message from [facility] regarding patient needing appointment. Patient was notified. Successfully contacted patient and provided [facility] message. * Telephone Encounter - Prince Merchant [facility] - 05/17/2023 9:15 AM ESTSigned Prescriptions: Disp Refills Glucose Blood In Vitro Strip (OneTouch Ult*100 St*5 Sig: Use as directed 4 times a day. Use up to four times a day as directed Authorizing Provider: DAISY TITUS Ordering User: PRINCE MERCHANT Alcohol Prep 70 % Pad 100 Ea*5 Sig: DIRECTED Authorizing Provider: DAISY TITUS Orde ring User: PRINCE MERCHANT * Telephone Encounter - Prince Merchant [facility] - 05/17/2023 9:09 AM EST Please contact patient so that an appointment can be scheduled with her PRIMARY CARE provider. Refill authorized to hold patient over in the mean time. Last Visit: 10/29/2022 (in office), 03/12/2023 (telemedicine) Next Visit: Visit date not found Thank You, Prince Merchant, Pharm-D Clinical Pharmacist [facility] ([facility] ([facility]) [phone] 05/17/2023, 9:12 AM documented in this encounter Plan of Treatment Upcoming Encounters Date Type Department Care Team (Late st Contact Info) Description 06/07/2023 8:10 AM EST Laboratory Lab [facility]le[facility] [address] [place] [address] Gm, [facility] Mobile Home Draw [address] [place] [address] 06/10/2023 6:00 AM EST Anticoagulation Pharmacy Call Center [address] [place] [address] [facility] [address] [place] [address] Scheduled Procedures Name Priority Associated Diagnoses Date/Ti me COLONOSCOPY FLEXIBLE PROXIMA L DIAGNOSTIC Recall Screening for colon cancer Health Maintenance Due Date Last Done Comments DISCUSS TOBACCO CESSATION (REFER TO SMARTSET #1760) 1965 COVID-19 Vaccine (#1) 03/10/1965 Pap Smear 1985 Cervical Cancer Screening 1994 HPV/Co-Test 1994 Mammogram 2004 Cologuard 2009 Fecal Occult Blood Test 2009 Sigmoidoscopy 2009 Diabetic Foot Exam 03/14/2019 03/14/2018, 0 05/16/2017, 01/01/2014 Hepatitis B (2 of 2 - CpG 2-dose series) 08/20/2022 07/23/2022 Influenza Vaccine (FLU shot) (#1) 2022 Albumin/Creatinine [...] Visit Diagnoses Diagnosis Type 2 diabetes mellitus without complication, with long-term current use of insulin (HCC) documented in this encounter Care Teams Oil Inspector Relationship Specialty Start Date End Date Mauricio Lerma MD [address] [place] [address] PCP - General Family Medicine 05/22/23 documented as of this encounter
--- OUTSIDE RECORDS SUMMARY | 2023-09-16 21:29 | External Medical Summary ---
Author Name Unknown Address Unknown Organization K01:[facility] - [address] [place] [address] Laboratory Report Ordering Provider Test Date Status ROCKY STOVER 07/05/2023 07:22:00 Final Please draw PT/INR every 1-4 weeks or as requested by the [facility] Coumadin [facility]

Warfarin Therapy
INR: 2.0-3.0 conventional anticoagulation
INR: 2.5-3.5 high intensity anticoagulation Observation Date Value Abnormality Reference (Units ) Status PT 07/05/2023 07:22:00 25.3 Above high normal 11 .6-15.2 (seconds) Final INR 07/05/2023 07:22:00 2.3 Above high normal 0. 8-1.2 Final Performing Location [facility] - [address] [place] [address]
--- OUTSIDE RECORDS SUMMARY | 2023-09-16 21:29 | External Medical Summary | Summary of Care ---
Author Name Unknown Organization [facility] Address [address] [address] Phone [phone] Care Team Providers Care Intermediate Designer Name Role Phone Jamal Velazquez MD Primary Care Provider [phone] Reason for Visit * Reason Onset Date Comments Medication Refill 05/22/2023 Encounter Details Date Type Department Care Team (Late st Contact Info) Description 05/22/2023 Refill Family Practice [facility] [address] [place] [address] Jamal Velazquez MD [address] [place] [address] Type 2 diabetes mellitus with hyperglycemia, with long-term current use of insulin ([facility]); Type 2 diabetes mellitus with peripheral vascular disease (HCC); 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 60 Capsule 5 2 Active Additional Information Patient not taking.Reported on 11/12/2022 D-Care Glucometer w/Device KitIndications:Type 2 diabetes mellitus without complication, with long-term current use of insulin (HCC) Use as directed . Use as directed for home glucose testing 4 times daily 1 Kit 0 2 Active LancetsIndications:T ype 2 diabetes mellitus without complication, with long-term current use of insulin ([facility]) Use as directed. 100 Each 11 2 Active FreeStyle Niyah 2 [place] Device Use as directed . 1 Each 0 3 Active Albuterol Sulfate HFA 108 (90 Base) [...] with long-term current use of insulin ([facility]) Take 1 Tablet by mouth in the [...] A1c goal of less than 7.0% ([facility]) Use to inject insulin 6 times daily [...] Sublingual Tablet Sublingual (Nitrostat)Indicatio ns:Angina pectoris ([facility]) Place 1 Tablet under the tongue as needed for Pain, Chest. May repeat 3 times. If chest pain continues, call 911. 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 385 g 11 3 Active Additional Information Patient not taking.Reported on 11/12/2022 Ferrous Sulfate 325 (65 Fe) MG Oral Tablet (Feosol)Indications: Iron deficiency anemia, unspecified iron deficiency anemia type Take 1 Tablet by mouth in the morning and 1 Tablet before bedtime. 60 Tablet 1 3 Active Isosorbide Mononitrate ER 30 MG Oral Tablet Extended Release 24 Hour (Imdur)Indications:P VC (premature ventricular contraction),PSVT (paroxysmal supraventricular tachycardia),Essenti al hypertension with goal blood pressure less than 130/80 Take 1 tablet by mouth in the morning 90 Tablet 3 3 Active Warfarin Sodium 10 MG Oral Tablet (Coumadin)Indication s:Peripheral vascular disease, unspecified ([facility]),Encounter for monitoring Coumadin therapy,Iliac artery stenosis, right ([facility]) Take 1.5- 2 tablets by mouth daily. Dosage adjustment by anticoagulation clinic. Patient aware of the tablet strength change. 60 Tablet 1 4 Active Glucose Blood In Vitro StripIndications:Typ e 2 diabetes mellitus without complication, with long-term current use of insulin ([facility]) Use as directed 4 times a day. [...] skin daily. 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 (HCC) Inject 40 units subcutaneously in the morning and 15 units in the evening 0 3 024 Discontin ued(Refil l) Hospital, Clinic, or Other Facility Administered Medication Ordered Dose Route Frequency Start Date End Date Status Albuterol Sulfate (Proventil) (2.5 MG/3ML) 0.083% inhalation solution 2.5 mgIndications:Mild intermittent reactive airway disease without complication 2.5 mg NEBULIZER ONCE PRN 07/23/2022 07/23/2023 Active documented as of this encounter (statuses as of 05/22/2023) Active Problems Problem Noted Date Diagnosed Date [...] as of this encounter (statuses as of 05/22/2023) Resolved Problems Problem Noted Date Diagnosed Date Resolved Date Polyneuropathy, unspecified 07/23/2022 03/11/2023 Atherosclerosis of [place] artery of extremity 06/27/1903/11/2023 Cellulitis of right [...] for divorce while he was hospitalized in [place]. She gave him enough money for a plane ticket to [place] to live with an old friend. He does not work and is trying to apply for social security. Would appreciate any resources. Referral placed for [facility] to assist. Assistance needed with transportation 04/19/2022 03/11/2023 [facility] 04/19/2022 03/11/2023 Last Assessment [...] Has problems with transportation. Referral placed within [facility] for assistance. Advanced care planning/counseling discussion 03/11/2023 Last Assessment & Plan: He would benefit from advanced care planning discussions. Mentioned during the visit he wishes for NO CPR or intubation. Willing to fill out a POLST form to document his wishes. Reports "when my time is up, it's up". Note sent to [facility] wind power project manager for discussion at next visit. Iliac artery stenosis, right 03/05/2022 03/11/2023 Last Assessment & Plan: CT abd/pelvis 02/2022 at [facility] revealed occlusion of right internal iliac artery with distal reconstitution. Vascular surgery was consulted and no intervention was needed. He was started on warfarin for anticoagulation. Following with anticoagulation clinic. Recommended he should follow routinely with Vascular surgery. Again, problems with transportation. Referral placed for assistance from [facility] for resources. Toe ulcer, left, limited [...] as of this encounter (statuses as of 05/22/2023) Immunizations Name Administration Dates Next Due Hepatitis B Vaccine, Recombi nant, Adjuvanted, 20 mcg/mL (Heplisav-B) 07/23/2022 Pneumococcal Conjugate Vaccine, 20-valent (Prevn ar20) 07/23/2022 Pneumococcal Polysaccharide PPV23 (Pneumovax) TDAP (age 10 and older)(Boostrix) 05/16/2017,04/2007 Zoster Vaccine Recombinant (Shingrix) 10/29/2022 ,07/23/2022 documented as of this encounter Social History Tobacco Use Types Packs/Day Years Used Date Smoking Tobacco: Every Day Cigarettes 0.2 44 Cigars Last attempted to quit: 05/18/2022 Smokeless Tobacco: Former Comments:2 cigars a day [...] Telephone Encounter - Jamal Velazquez MD - 05/22/2023 9:07 AM ESTSigned Prescriptions: Disp Refills Insulin Glargine 100 UNIT/ML Subcutaneous *1 Each 3 Sig: Inject 40 units subcutaneously in the morning and 15 units in the evening Authorizing Provider: JAMAL VELAZQUEZ Nicotine 14 MG/24HR Transdermal Patch 24 H*28 Pat*1 Sig: Place 1 Patch over 24 hours topically on the skin daily. Authorizing Provider: ZENAIDA VELAZQUEZ * Telephone Encounter - Love Connell RN - 05/22/2023 8:34 AM EST Patient was former Dr. Pulliam patient, he will be changing to you Dr. Velazquez, scheduled for upcoming appt with you in May. He is asking for refill of lantus and nicotine patches to [facility] today when he is here to see cardio. Pended if agreeable, Thanks documented in this encounter Plan of Treatment Upcoming Encounters Date Type Department Care Team (Latest Contact Info) Description 05/22/2023 9:30 AM EST Office Visit Cardiology, [facility] [address] [facility] [place] [address] Brian Dickey PA-C [address] [place] [address] History of Present Illness: Madhuri Carmona is a 57 year old adult who was 06/07/2023 8:10 AM EST Laboratory Lab [facility] Phlebot[facility] [address] [place] [address] [facility] [place] Mobile Home Draw [address] [place] [address] 06/08/2023 8:40 AM EST Office Visit Family [facility] [address] [place] [address] Jamal Velazquez MD [address] [place] [address] 06/10/2023 6:00 AM EST Anticoagulation Pharmacy Call Center [address] [place] [address] [facility] [address] [place] [address] Scheduled Procedures Name Priority Associated Diagnoses Date/Ti me COLONOSCOPY FLEXIBLE PROXIMA L DIAGNOSTIC Recall Screening for colon cancer Health Maintenance Due Date Last Done Comments DISCUSS TOBACCO CESSATION (REFER TO SMARTSET #3293) 1965 COVID-19 Vaccine (#1) 03/10/1965 Pap Smear [...] Eye Exam 02/16/2023 02/16/2022 HbA1c 08/23/2023 02/22/2023, 07/2 07/2022, 05/17/2022, Additional history exists GFR 03/22/2024 03/22/2023, [...] Diagnoses Diagnosis Type 2 diabetes mellitus with hyperglycemia, with long-term current use of insulin (HCC) Type 2 diabetes mellitus with peripheral vascular disease (HCC) 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
--- OUTSIDE RECORDS SUMMARY | 2023-09-16 21:29 | External Medical Summary | Summary of Care ---
Author Name Unknown Organization [facility] Address [address] [place] [place] [address] Phone [phone] Care Team Providers Care Machine Set Up Operator Paper Goods Name Role Phone Mauricio Lerma MD Primary Care Provider [phone] Reason for Visit * Reason Comments Dosage Adjustment Via Phone (anticoag Cl inic) Encounter Details Date Type Department Care Team (Latest Contact Info) Description 06/10/2023 6:00 AM [facility] Anticoagulation Pharmacy Call Center [address] [facility] [address] [facility] [address] [facility] [address] 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 90 Tablet 3 3 Active Metoprolol Succinate ER 50 MG Oral Tablet Extended Release 24 Hour (toPROL XL) Take 1 Tablet by mouth in the morning. 90 Tablet 3 3 Active Nitroglycerin 0.4 MG Sublingual Tablet Sublingual (Nitrostat)Indicati ons:Angina pectoris ([facility]) Place 1 Tablet under the tongue as needed for Pain, Chest. May repeat 3 times. If chest pain continues, call 911. 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 He does not work and is trying to apply for social security. Would appreciate any resources. Referral placed for [facility] to assist. Assistance needed with transportation [...] Has problems with transportation. Referral placed within [facility] for assistance. Advanced care planning/counseling discussion 03/11/2023 Last Assessment & Plan: He would benefit from advanced care planning discussions. Mentioned during the visit he wishes for NO CPR or intubation. Willing to fill out a POLST form to document his wishes. Reports "when my time is up, it's up". Note sent to [facility] accounting practice manager for discussion at next visit. Iliac artery stenosis, right 03/05/2022 03/11/2023 Last Assessment & Plan: CT abd/pelvis 02/2022 at [facility] revealed occlusion of right internal iliac artery with distal reconstitution. Vascular surgery was consulted and no intervention was needed. He was started on warfarin for anticoagulation. Following with anticoagulation clinic. Recommended he should follow routinely with Vascular surgery. Again, problems with transportation. Referral placed for assistance from [facility] for resources. Toe ulcer, left, limited [...] as of this encounter (statuses as of 06/10/2023) Immunizations Name Administration Dates Next Due Hepatitis [...] as of this encounter Progress Notes * Sharon Wyatt software tools build engineer - 06/10/2023 8:45 AM EST Contacts Type Contact Phone/Fax 06/10/2023 08:43 AM EST Phone (Outgoing) Madhuri Carmona (Self) [phone] (M) Left Message Subjective Advised patient to contact Anticoagulation Clinic if any unusual bruising or bleeding, recent illness, changes in medication, or questions/concerns. PT/INR results, Coumadin dose instructions, and next PT/INR date communicated as noted by Pharmacist: Yes ASHA BEE 06/10/2023, 8:45 AM * Alize Cornejo [facility] - 06/10/2023 8:36 AM EST Images from the original note were not included. Coumadin Clinic (region specific) Objective Current Warfarin Dose As of 06/10/2023 Warfarin maintenance plan: 20 mg (5 mg x 4) every Sun, Darlene; 15 mg (5 mg x 3) all other days INR Result As of 06/10/2023 INR goal: 2.0-3.0 INR used for dosin.7 (06/07/2023) Assessment & Plan Warfarin Plan As of 06/10/2023 Full warfarin instructions: 06/10: 20 mg; Otherwise 20 mg every Sun, Darlene; 15 mg all other days Next INR check: 06/21/2023 Repeat PT/INR in 2 week(s) Weekly dose: not changed Additional Dosing Information: Description GML (Fri only) Patient does not wish to take lovenox any longer due to bruising and pain from needles Patient takes Coumadin in AM; switched to 10 mg tablets 06/08/22 after discussion with patient. Tech to contact patient with dose instructions as noted. 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
--- OUTSIDE RECORDS SUMMARY | 2023-09-16 21:29 | External Medical Summary ---
Author Name Unknown Address Unknown Organization [facility] [address] [place] [address] Laboratory Report Ordering Provider Test Date Status ROCKY STOVER 05/17/2023 07:30:00 Final Please draw PT/INR every 1-4 weeks or as requested by the [facility] Coumadin [facility]

Warfarin Therapy
INR: 2.0-3.0 conventional anticoagulation
INR: 2.5-3.5 high intensity anticoagulation Observation Date Value Abnormality Reference (Units ) Status PT 05/17/2023 07:30:00 33.3 Above high normal 11 .6-15.2 (seconds) Final INR 05/17/2023 07:30:00 3.2 Above high normal 0. 8-1.2 Final Performing Location [facility] [address] [place] [address]
--- OUTSIDE RECORDS SUMMARY | 2023-09-16 21:29 | External Medical Summary | Summary of Care ---
Author Name Unknown Organization [facility] Address [address] [facility] [place] [address] Phone [phone] Care Team Providers Care Sand Blaster Name Role Phone Jamal Velazquez MD Primary Care Provider [phone] Reason for Visit * Reason Comments Medication Refill Encounter Details Date Type Department Care Team (Late st Contact Info) Description 07/05/2023 Refill Family Practice [facility] [address] [facility] [place] [address] Julio César Pulliam, DO [address] [place] [address] Mild intermittent reactive airway disease without complication Allergies Active Allergy Reactions Criticality Noted Date Comments Metformin Diarrhea 05/16/2017 documented as of this encounter (statuses as of 07/06/2023) Medications Medication Sig Dispensed Refills Start Date [...] Use as directed. 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 90 Tablet 3 3 Active Dexcom G7 Sensor Use 1 sensor every 10 days 3 Each 11 202 3 Active DULoxetine HCl 30 MG Oral [...] goal of less than 7.0% ([facility]) Use to inject insulin 6 times daily 300 Each 5 3 Active Lisinopril 40 MG Oral TabletIndications: HTN, goal below 130/80 Take 1 Tablet by mouth in the morning. 90 Tablet 3 3 Active Metoprolol Succinate ER 50 MG Oral Tablet Extended Release 24 Hour (toPROL XL) Take 1 Tablet by mouth in the morning. 90 Tablet 3 3 Active Nitroglycerin 0.4 MG Sublingual Tablet Sublingual (Nitrostat)Indicat ions:Angina pectoris ([facility]) Place 1 Tablet under the tongue as needed for Pain, Chest. May repeat 3 times. If chest pain continues, call 911. 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 18 g 1 4 Active Albuterol Sulfate HFA 108 (90 Base) MCG/ACT Inhalation Aerosol SolutionIndication s:Mild intermittent reactive airway disease without complication Inhale 2 Puffs by mouth every 6 hours as needed for Cough, Shortness of Breath or Wheezing. 18 g 5 3 07/05/19 24 Discontinu ed(Refill) documented as of this encounter (statuses as of 07/06/2023) Active Problems Problem Noted Date Diagnosed Date [...] as of this encounter (statuses as of 07/06/2023) Resolved Problems Problem Noted Date Diagnosed Date Resolved Date Polyneuropathy, unspecified 07/23/2022 03/11/2023 Atherosclerosis of [place] artery of extremity 06/27/1903/11/2023 Cellulitis of right [...] divorce while he was hospitalized in [place]. She gave him enough money for a plane ticket to [place] to live with an old friend. He does not work and is trying to apply for social security. Would appreciate any resources. Referral placed for [facility] to assist. Assistance needed with transportation 04/19/2022 03/11/2023 Hypertensive heart disease w [facility] congestive heart failure 04/19/2022 03/11/2023 Last [...] Has problems with transportation. Referral placed within [facility] for assistance. Advanced care planning/counseling discussion 03/11/2023 Last Assessment & Plan: He would benefit from advanced care planning discussions. Mentioned during the visit he wishes for NO CPR or intubation. Willing to fill out a POLST form to document his wishes. Reports "when my time is up, it's up". Note sent to [facility] compliance manager for discussion at next visit. Iliac artery stenosis, right 03/05/2022 03/11/2023 Last Assessment & Plan: CT abd/pelvis 02/2022 at [facility] revealed occlusion of right internal iliac artery with distal reconstitution. Vascular surgery was consulted and no intervention was needed. He was started on warfarin for anticoagulation. Following with anticoagulation clinic. Recommended he should follow routinely with Vascular surgery. Again, problems with transportation. Referral placed for assistance from [facility] for resources. Toe ulcer, left, [...] as of this encounter (statuses as of 07/06/2023) Immunizations Name Administration Dates Next Due Hepatitis [...] encounter Miscellaneous Notes * Telephone Encounter - Johnny Napier, [facility] - 07/06/2023 12:20 PM EDTSigned Prescriptions: Disp Refills Albuterol Sulfate HFA 108 (90 Base) MCG/AC*18 g 1 Sig: Inhale 2Puffs by mouth every 6 hours as needed for Cough, Shortness of Breath or Wheezing.Authorizing Provider: JAMAL VELAZQUEZ User: JOHNNY NAPIER * Telephone Encounter - Johnny Napier [facility] - 07/06/2023 12:18 PM EDT Last appt with PCP pt left without being seen. Will need appt for future refills. Recent cardiologyappt with pt reporting dyspnea Johnny Napier [facility] Clinical Pharmacist Telepharmacy [phone] 07/06/2023 12:19 PM documented in this encounter Plan of Treatment Upcoming Encounters Date Type Department Care Team (Late st Contact Info) Description 07/08/2023 6:00 AM EDT Anticoagulation Pharmacy Call Center [address] [place] [address] [facility] [address] [place] [address] Scheduled Procedures Name Priority Associated Diagnoses Date/Ti me COLONOSCOPY FLEXIBLE PROXIMA L DIAGNOSTIC Recall Screening for colon cancer Health Maintenance Due Date Last Done Comments DISCUSS TOBACCO CESSATION (REFER TO SMARTSET #0913) 1965 Pap Smear 1985 Cervical Cancer Screening 1994 HPV/Co-Test 1994 Mammogram 2004 Cologuard 2009 Fecal Occult Blood Test 2009 Sigmoidoscopy 2009 Diabetic Foot Exam 03/14/2019 03/14/2018, 0 05/16/2017, 01/01/2014 Hepatitis B (2 of 2 - CpG 2-dose series) 08/20/2022 07/23/2022 COVID-19 Vaccine (1 - 2022- season) 2022 Influenza Vaccine (FLU shot) (#1) [...] Mild intermittent reactive airway disease without complication documented in this encounter Care Teams Sand Blaster Relationship Specialty Start Date End Date Jamal Velazquez MD [address] [place] [address] PCP - General Family Medicine 05/22/23 documented as of this encounter
--- OUTSIDE RECORDS SUMMARY | 2023-09-16 21:29 | External Medical Summary | Summary of Care ---
Author Name Unknown Organization [facility] Address [address] [place] [facility] [place] [address] Phone [phone] Care Team Providers Care Director Quality Assurance Name Role Phone Unavailable Primary Care Provider Unavailabl e Reason for Visit * Reason Comments Dosage Adjustment Via Phone (anticoag Cl inic) Encounter Details Date Type Department Care Team (Latest Contact Info) Description 04/29/2023 6:00 AM [facility] Anticoagulation Pharmacy Call Center [address] [facility] [place] [address] [facility] [address] [facility] [place] [address] Anticoagulation management encounter* Allergies Active Allergy Reactions Criticality Noted Date Comments Metformin Diarrhea 05/16/2017 documented as of this encounter (statuses as of 04/29/2023) Medications Medication Sig Dispensed Refills Start Date End Date Status Acidophilus Lactobacillus Oral CapsuleIndications:Ab scess of left leg Take by mouth 1 Capsule 2 times a day . 60 Capsule 5 2 Active Additional Information Patient not taking.Reported on 11/12/2022 D-Care Glucometer w/Device KitIndications:Type 2 diabetes mellitus without complication, with long-term current use of insulin (HCC) Use as directed . Use as directed for home glucose testing 4 times daily 1 Kit 0 2 Active LancetsIndications:Ty pe 2 diabetes mellitus without complication, with long-term current use of insulin (HCC) Use as directed. 100 Each 11 2 Active OneTouch Ultra Blue In Vitro Strip (Glucose Blood)Indications:Typ e 2 diabetes mellitus without complication, with long-term current use of insulin ([facility]) Use as directed 4 times a day. Use up to four times a day as directed 100 Strip 5 2 Active FreeStyle Niyah 2 [place] Device Use as directed . 1 Each 0 3 Active Albuterol Sulfate HFA 108 (90 Base) MCG/ACT Inhalation Aerosol SolutionIndications:M ild intermittent reactive airway disease without complication Inhale 2 Puffs by mouth every 6 hours as needed for Cough, Shortness of Breath or Wheezing. 18 g 5 3 Active Alcohol Prep 70 % Pad DIRECTED 100 Each 5 3 Active Clopidogrel Bisulfate 75 MG Oral Tablet (Plavix)Indications:T ype 2 diabetes mellitus with diabetic peripheral angiopathy and gangrene, with long-term current use of insulin ([facility]) Take 1 Tablet by mouth in the morning. 90 Tablet 3 3 Active Dexcom G7 Sensor Use 1 sensor every 10 days 3 Each 3 Active DULoxetine HCl 30 MG Oral Capsule Delayed Release Particles (Cymbalta)Indications :Spinal stenosis of lumbar region with neurogenic claudication Take 2 capsules by mouth once daily 180 Capsule 3 3 Active Gabapentin 600 MG Oral Tablet (Neurontin)Indication s:Lumbar radiculopathy Take 1 Tablet by mouth in the morning and 1 Tablet at noon and 1 Tablet before bedtime. 270 Tablet 3 Active BD Pen Needle Molly U/F 32G X 4 MM (Insulin Pen Needle)Indications:Ty pe 2 diabetes mellitus with hemoglobin A1c goal of less than 7.0% ([facility]) Use to inject insulin 6 times daily 300 Each 3 Active Lisinopril 40 MG Oral TabletIndications:HTN , goal below 130/80 Take 1 Tablet by mouth in the morning. 90 Tablet 3 3 Active Metoprolol Succinate ER 50 MG Oral Tablet Extended Release 24 Hour (toPROL XL) Take 1 Tablet by mouth in the morning. 90 Tablet 3 Active Nitroglycerin 0.4 MG Sublingual Tablet Sublingual (Nitrostat)Indication s:Angina pectoris ([facility]) Place 1 Tablet under the tongue as needed for Pain, Chest. May repeat 3 times. If chest pain continues, call 911. 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 Inject with meals. Units as per sliding scale. 45 mL 3 3 Active Atorvastatin Calcium 40 MG Oral Tablet (Lipitor) Take 1 Tablet by mouth in the morning. 90 Tablet 3 3 Active Varenicline Tartrate 0.5 MG Oral Tablet (Chantix)Indications: Tobacco use Take 1 Tablet by mouth in the morning and 1 Tablet in the evening. 53 Tablet 0 3 Active Additional Information Patient not taking.Reported on 11/12/2022 Ammonium Lactate 12 % External CreamIndications:Veno us stasis dermatitis of both lower extremities Apply topically to affected area 2 times a day. To affected area. 385 g 11 3 Active Additional Information Patient not taking.Reported on 11/12/2022 Ferrous Sulfate 325 (65 Fe) MG Oral Tablet (Feosol)Indications:I josé antonio deficiency anemia, unspecified iron deficiency anemia type Take 1 Tablet by mouth in the morning and 1 Tablet before bedtime. 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 Dosage adjustment by anticoagulation clinic. Patient aware of the tablet strength change. 60 Tablet 1 3 Active Isosorbide Mononitrate ER 30 MG Oral Tablet Extended Release 24 Hour (Imdur)Indications:PV C (premature ventricular contraction),PSVT (paroxysmal supraventricular tachycardia),Essentia l hypertension with goal blood pressure less than 130/80 Take 1 tablet by mouth in the morning 90 Tablet 3 3 Active Hospital, Clinic, or Other Facility Administered Medication Ordered Dose Route Frequency Start Date End Date Status Albuterol Sulfate (Proventil) (2.5 MG/3ML) 0.083% inhalation solution 2.5 mgIndications:Mild intermittent reactive airway disease without complication 2.5 mg NEBULIZER ONCE PRN 07/23/2022 07/23/2023 Active documented as of this encounter (statuses as of 04/29/2023) Active Problems Problem Noted Date Diagnosed Date [...] as of this encounter (statuses as of 04/29/2023) Resolved Problems Problem Noted Date Diagnosed Date Resolved Date Polyneuropathy, unspecified 07/23/2022 03/11/2023 Atherosclerosis of [place] artery of extremity 06/27/1903/11/2023 Cellulitis of right [...] for divorce while he was hospitalized in [place]. She gave him enough money for a plane ticket to [place] to live with an old friend. He does not work and is trying to apply for social security. Would appreciate any resources. Referral placed for [facility] to assist. Assistance needed with transportation 04/19/2022 03/11/2023 Hypertensive heart disease w [facility] congestive heart failure 04/19/2022 03/11/2023 Last [...] it's up". Note sent to [facility] resident services manager for discussion at next visit. [...] as of this encounter (statuses as of 04/29/2023) Immunizations Name Administration Dates Next Due Hepatitis [...] as of this encounter Progress Notes * Luis Munoz regional ehs manager - 04/29/2023 3:44 PM EST Contacts Type Contact Phone/Fax 04/29/2023 03:36 PM EST Phone (Outgoing) Madhuri Carmona (Self) [phone] (M) Left Message Subjective Advi PT/INR results, Coumadin dose instructions, and next PT/INR date communicated as noted by Pharmacist: Yes Luis Munoz regional ehs manager 04/29/2023, 3:44 PM * Alize Cornejo RPh - 04/29/2023 3:33 PM EST Coumadin Clinic (region specific) Objective Current Warfarin Dose As of 04/29/2023 Warfarin maintenance plan: 20 mg (5 mg x 4) every Sun, Darlene; 15 mg (5 mg x 3) all other days INR Result As of 04/29/2023 INR goal: 2.0-3.0 INR used for dosin.2 (04/26/2023) Assessment & Plan Warfarin Plan As of 04/29/2023 Full warfarin instructions: 20 mg every Sun, Darlene; 15 mg all other days No change documented: Alize Cornejo RPh Next INR check: 05/17/2023 Repeat PT/INR in 3 week(s) Weekly dose: decreased Additional Dosing Information: Description GML (Fri only) Patient does not wish to take lovenox any longer due to bruising and pain from needles Patient takes Coumadin in AM; switched to 10 mg tablets 06/08/22 after discussion with patient. Tech to contact patient with dose instructions as noted. Alize Cornejo RPh 04/29/2023, 3:34 PM documented in this encounter Plan of Treatment Upcoming Encounters Date Type Department Care Team (Late st Contact Info) Description 05/22/2023 9:30 AM EST Office Visit Cardiology, [facility] [address] [place] [address] Brian Dickey PA-C [address] [place] [address] Scheduled Procedures Name Priority Associated Diagnoses Date/Ti me COLONOSCOPY FLEXIBLE PROXIMA L DIAGNOSTIC Recall Screening for colon cancer Health Maintenance Due Date Last Done Comments DISCUSS TOBACCO CESSATION (REFER TO SMARTSET #6353) 1965 COVID-19 Vaccine (#1) 03/10/1965 Pap Smear [...] 05/17/2022, Additional history exists GFR 03/22/2024 03/22/2023, 110 06/2022, 11/12/2022, Additional history exists DTaP,Tdap,and Td [...]
--- OUTSIDE RECORDS SUMMARY | 2023-09-16 21:29 | External Medical Summary | Summary of Care ---
Author Name Unknown Organization [facility] Address [address] [place] [address] Phone [phone] Care Team Providers Care Waistband Setter Lockstitch Name Role Phone Unavailable Primary Care Provider Unavailabl e Encounter Details Date Type Department Care Team (Late st Contact Info) Description 04/16/2023 Orders Only Outcomes Research Department [address], [place] [id number] Jayla Ryan CHRA PharmAssistant Research Other*[id number] Allergies Active Allergy Reactions Criticality Noted Date Comments Metformin Diarrhea 05/16/2017 documented as of this encounter (statuses as of 04/16/2023) Medications Medication Sig Dispensed Refills Start Date [...] as directed 100 Strip 5 2 Active FRESSStyle Niyah 2 [place] Device Use as directed . 1 Each [...] gangrene, with long-term current use of insulin ([facility]) Take 1 Tablet by mouth in the morning. 90 Tablet 3 3 Active Dexcom G7 Sensor Use 1 sensor every 10 days 3 Each 11 3 Active DULoxetine HCl 30 MG Oral [...] hemoglobin A1c goal of less than 7.0% ([facility]) Use to inject insulin 6 times daily 300 Each 5 3 Active Lisinopril 40 MG Oral TabletIndications:HTN , goal below 130/80 Take 1 Tablet by mouth in the morning. 90 Tablet 3 3 Active Metoprolol Succinate ER 50 MG Oral Tablet Extended Release 24 Hour (toPROL XL) Take 1 Tablet by mouth in the morning. 90 Tablet 3 3 Active Nitroglycerin 0.4 MG Sublingual Tablet Sublingual (Nitrostat)Indication s:Angina pectoris ([facility]) Place 1 Tablet under the tongue as needed for Pain, Chest. May repeat 3 times. If chest pain continues, call 911. 25 Tablet 11 3 Active NovoLOG FlexPen 100 UNIT/ML Subcutaneous Solution Pen-injector (insulin aspart)Indications:Ty pe 2 diabetes mellitus with hyperglycemia, with long-term current use of insulin ([facility]),Type 2 diabetes mellitus with peripheral [...] Coumadin therapy,Iliac artery stenosis, right (HCC) Take 1.5-2 Tablets by mouth daily. Dosage [...] as of this encounter (statuses as of 04/16/2023) Active Problems Problem Noted Date Diagnosed Date [...] as of this encounter (statuses as of 04/16/2023) Resolved Problems Problem Noted Date Diagnosed Date Resolved Date Polyneuropathy, unspecified 07/23/2022 03/11/2023 Atherosclerosis of [place] artery of extremity 06/27/1903/11/2023 Cellulitis of right [...] for divorce while he was hospitalized in [place]. She gave him enough money for a plane ticket to [place] to live with an old friend. He does not work and is trying to apply for social security. Would appreciate any resources. Referral placed for [facility] to assist. Assistance needed with [...] Has problems with transportation. Referral placed within [facility] for assistance. Advanced care planning/counseling discussion 03/11/2023 Last Assessment & Plan: He would benefit from advanced care planning discussions. Mentioned during the visit he wishes for NO CPR or intubation. Willing to fill out a POLST form to document his wishes. Reports "when my time is up, it's up". Note sent to [facility] senior clinical study manager for discussion at next visit. Iliac artery stenosis, right 03/05/2022 03/11/2023 Last Assessment & Plan: CT abd/pelvis 02/2022 at [facility] revealed occlusion of right internal iliac artery with distal reconstitution. Vascular surgery was consulted and no intervention was needed. He was started on warfarin for anticoagulation. Following with anticoagulation clinic. Recommended he should follow routinely with Vascular surgery. Again, problems with transportation. Referral placed for assistance from [facility] for resources. Toe ulcer, left, [...] as of this encounter (statuses as of 04/16/2023) Immunizations Name Administration Dates Next Due Hepatitis [...] Care Team (Late st Contact Info) Description 04/26/2023 8:30 AM EST Laboratory Lab Mobile [facility]bot[facility] [address] [place] [address] [facility] Mobile Home Draw [address] [place] [address] 04/29/2023 6:00 AM EST Anticoagulation Pharmacy Call Center [address] [place] [address] [facility] [address] [facility] [place] [address] 05/22/2023 9:30 AM EST Office Visit Cardiology, [facility] [address] [place] [address] Brian Dickey PA-C [address] [place] [address] Scheduled Orders Name Type Priority Associated Diagnoses Orde r Schedule MYCODE SUBSEQUENT ADULT Lab Routine MyCode Research Other*[id number] Every 6 Months for 2 Occurrences starting 04/16/2023 until 05/05/2024 Scheduled Procedures Name Priority Associated Diagnoses Date/Ti [...] as of this encounter Visit Diagnoses Diagnosis My[facility] Research Other*[id number] documented in this encounter
--- OUTSIDE RECORDS SUMMARY | 2023-09-16 21:29 | External Medical Summary | Summary of Care ---
Author Name Unknown Organization [facility] Address [address] [facility] [place] [address] Phone [phone] Care Team Providers Care Concrete Block Molder Name Role Phone Jamal Velazquez MD Primary Care Provider [phone] Reason for Visit * Reason Comments Medication Refill Encounter Details Date Type Department Care Team (Late st Contact Info) Description 07/05/2023 Refill Family Practice [facility] [address] [place] [address] Cadence Avina MD [address] [place] [address] Type 2 diabetes mellitus with diabetic peripheral angiopathy and gangrene, with long-term current use of insulin (HCC); Spinal stenosis of lumbar region with neurogenic claudication; HTN, goal below 130/80 Allergies Active Allergy Reactions Criticality Noted Date [...] A1c goal of less than 7.0% ([facility]) Use to inject insulin 6 times daily 300 Each 5 3 Active Metoprolol Succinate ER 50 MG Oral Tablet Extended Release 24 Hour (toPROL XL) Take 1 Tablet by mouth in the morning. 90 Tablet 3 3 Active Nitroglycerin 0.4 MG Sublingual Tablet Sublingual (Nitrostat)Indicat ions:Angina pectoris ([facility]) Place 1 Tablet under the tongue as needed for Pain, Chest. May repeat 3 times. If chest pain continues, call 911. 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 Dosage adjustment by anticoagulation clinic. Patient aware of the tablet strength change. 60 Tablet 1 4 Active Glucose Blood In Vitro StripIndications:T ype 2 diabetes mellitus without complication, with long-term current use of insulin ([facility]) Use as directed 4 times a day. 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 90 Tablet 3 3 07/05/19 24 Discontinu ed(Refill) DULoxetine HCl 30 MG Oral Capsule Delayed Release Particles (Cymbalta)Indicati ons:Spinal stenosis of lumbar region with neurogenic claudication Take 2 capsules by mouth once daily 180 Capsule 3 3 07/05/19 24 Discontinu ed(Refill) Lisinopril 40 MG Oral TabletIndications: HTN, goal below 130/80 Take 1 Tablet by mouth in the morning. 90 Tablet 3 3 07/05/19 24 Discontinu ed(Refill) Atorvastatin Calcium 40 MG Oral Tablet (Lipitor) Take 1 Tablet by mouth in the morning. 90 Tablet 3 3 07/05/19 24 Discontinu ed(Refill) documented as [...] Date Polyneuropathy, unspecified 07/23/2022 03/11/2023 Atherosclerosis of [place] artery of extremity 06/27/1903/11/2023 Cellulitis of right [...] for divorce while he was hospitalized in [place]. She gave him enough money for a plane ticket to [place] to live with an old friend. He does not work and is trying to apply for social security. Would appreciate any resources. Referral placed for [facility] to assist. Assistance needed with transportation 04/19/2022 03/11/2023 Hypertensive heart disease w [facility] congestive heart failure 04/19/2022 03/11/2023 Last [...] Has problems with transportation. Referral placed within [facility] for assistance. Advanced care planning/counseling discussion 03/11/2023 Last Assessment & Plan: He would benefit from advanced care planning discussions. Mentioned during the visit he wishes for NO CPR or intubation. Willing to fill out a POLST form to document his wishes. Reports "when my time is up, it's up". Note sent to [facility] enterprise manager for discussion at next visit. Iliac [...] with transportation. Referral placed for assistance from [facility] for resources. Toe ulcer, left, limited to breakdown of skin 03/05/20 22 07/23/2022 Leg ulcer, left, limited to breakdown of [...] encounter Miscellaneous Notes * Telephone Encounter - Marcelle Hammonds RPh - 07/08/2023 5:35 AM EDTSigned Prescriptions: Disp Refills Clopidogrel Bisulfate 75 MG Oral Tablet (P*90 Tab*2 Sig: Take 1 Tablet by mouth in the morning.Authorizing Provider: JAMAL VELAZQUEZ User: MARCELLE HAMMONDS DULoxetine HCl 30 MG Oral Capsule Delayed *180 Ca*2 Sig: Take 2 capsules by mouth once dailyAuthorizing Provider: JAMAL VELAZQUEZ User: MARCELLE HAMMONDS Lisinopril 40 MG OralTablet 90 Tab*2 Sig: Take 1 Tablet by mouth in the morning.Authorizing Provider: JAMAL VELAZQUEZ User: MARCELLE HAMMONDS Atorvastatin Calcium 40 MG Oral Tablet (Li*90 Tab*2 Sig: Take 1 Tablet by mouth in the morning.Authorizing Provider: JAMAL VELAZQUEZ User: MARCELLE HAMMONDS documented in this encounter Plan of Treatment Upcoming Encounters Date Type Department Care Team (Late st Contact Info) Description 07/08/2023 6:00 AM EDT Anticoagulation Pharmacy Call Center [address] [facility] [place] [address] [facility] [address] [facility] [place] [address] Scheduled Procedures Name Priority Associated Diagnoses Date/Ti me COLONOSCOPY FLEXIBLE PROXIMA L DIAGNOSTIC Recall Screening for colon cancer Health Maintenance Due Date Last Done Comments DISCUSS TOBACCO CESSATION (REFER TO SMARTSET #5690) 1965 Pap Smear 1985 Cervical Cancer Screening 1994 HPV/Co-Test 1994 Mammogram 2004 Cologuard 2009 Fecal Occult Blood Test 2009 Sigmoidoscopy 2009 Diabetic Foot Exam 03/14/2019 03/14/2018, 0 05/16/2017, 01/01/2014 Hepatitis B (2 of 2 - CpG 2-dose series) 08/20/2022 07/23/2022 COVID-19 Vaccine (1 - season) 2022 Influenza Vaccine (FLU shot) (#1) 2022 Albumin/Creatinine Ratio 02/16/2023 022, 05/16/2017, 12/22/2013 Depression Screening 02/16/2023 02/16/2022 Diabetic Eye Exam 02/16/2023 02/16/2022 HbA1c 08/23/2023 02/22/2023, 10/21, 05/17/2022, Additional history exists GFR 03/22/2024 03/22/2023, 1106/2022, 11/12/2022, Additional history [...] Diagnosis Type 2 diabetes mellitus with diabetic peripheral angiopathy and gangrene, with long-term current use of insulin (HCC) Spinal stenosis of lumbar region with neurogenic claudication Spinal stenosis, lumbar region, with neurogenic claudication HTN, goal below 130/80 Unspecified essential hypertension documented in this encounter Care Teams Concrete Block Molder Relationship Specialty Start Date End Date Jamal Velazquez MD [address] [place] [address] PCP - General Family Medicine 05/22/23 documented as of this encounter
--- OUTSIDE RECORDS SUMMARY | 2023-09-16 21:29 | External Medical Summary | Summary of Care ---
Author Name Unknown Organization [facility] Address [address] [facility] [place] [address] Phone [phone] Care Team Providers Care Sde Name Role Phone Mauricio Lerma MD Primary Care Provider [phone] Reason for Visit * Reason Comments Dosage Adjustment Via Phone (anticoag Cl inic) Encounter Details Date Type Department Care Team (Latest Contact Info) Description 06/24/2023 6:00 AM [facility] Anticoagulation Pharmacy Call Center [phone] [facility] [place] [address] [facility] [address] [facility] [address] 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 May repeat 3 times. If chest pain continues, call 911. 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 She gave him enough money for a plane ticket to [place] to live with an old friend. He does not work and is trying to apply for social security. Would appreciate any resources. Referral placed for [facility] to assist. Assistance needed with transportation 04/19/2022 03/11/2023 Hypertensive heart disease w [facility] congestive heart failure 04/19/2022 03/11/2023 Last Assessment [...] Has problems with transportation. Referral placed within [facility] for assistance. Advanced care planning/counseling discussion 03/11/2023 Last Assessment & Plan: He would benefit from advanced care planning discussions. Mentioned during the visit he wishes for NO CPR or intubation. Willing to fill out a POLST form to document his wishes. Reports "when my time is up, it's up". Note sent to [facility] licensed club manager for discussion at next visit. Iliac artery stenosis, right 03/05/2022 03/11/2023 Last Assessment & Plan: CT abd/pelvis 02/2022 at [facility] revealed occlusion of right internal iliac artery with distal reconstitution. Vascular surgery was consulted and no intervention was needed. He was started on warfarin for anticoagulation. Following with anticoagulation clinic. Recommended he should follow routinely with Vascular surgery. Again, problems with transportation. Referral placed for assistance from [facility] for resources. Toe ulcer, left, [...] as of this encounter (statuses as of 06/24/2023) Immunizations Name Administration Dates Next Due Hepatitis [...] as of this encounter Progress Notes * Citlaly Bonner PHARM Tech - 06/24/2023 8:35 AM EST Contacts Type Contact Phone/Fax 06/24/2023 08:33 AM EST Phone (Outgoing) Madhuri Carmona (Self) [phone] (M) Left Message Subjective Patient Findings Negatives: Signs/symptoms of bleeding, Change in health, Change in activity, Upcoming invasive procedure, Missed doses, Extra doses, Change in medications, Change in diet/appetite, Bruising Advised patient to contact Anticoagulation Clinic if any unusual bruising or bleeding, recent illness, changes in medication, or questions/concerns. PT/INR results, Coumadin dose instructions, and next PT/INR date communicated as noted by Pharmacist: Yes ASHA Mejía 06/24/2023, 8:35 AM * Gabby Birmingham RPh - 06/23/2023 8:02 PM EST Images from the original note were not included. Coumadin Clinic (region specific) Objective Current Warfarin Dose As of 06/24/2023 Warfarin maintenance plan: 20 mg (5 mg x 4) every Sun, Darlene; 15 mg (5 mg x 3) all other days INR Result As of 06/24/2023 INR goal: 2.0-3.0 INR used for dosin.8 (06/21/2023) Assessment & Plan Warfarin Plan As of 06/24/2023 Full warfarin instructions: 06/23: 20 mg; Otherwise 15 mg every Mon, Wed, Fri; 20 mg all other days; Starting 06/25/2023 Next INR check: 07/05/2023 Repeat PT/INR in 2 week(s) Weekly dose: increased Additional Dosing Information: Description GM (Sat only) Patient does not wish to take lovenox any longer due to bruising and pain from needles Patient takes Coumadin in AM; switched to 10 mg tablets 06/08/22 after discussion with patient. Tech to contact patient with dose instructions as noted. Gabby Birmingham RPh 06/23/2023, 8:02 PM documented in this encounter Plan of Treatment Upcoming Encounters Date Type Department Care Team (Late st Contact Info) Description 07/05/2023 8:40 AM EDT Laboratory Lab Mobile Phlebotomy [facility] [address] [place] [address] [facility] Mobile Home Draw [address] [place] [address] 07/08/2023 6:00 AM EDT Anticoagulation Pharmacy Call Center [phone] [place] [address] [facility] [address] 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
--- OUTSIDE RECORDS SUMMARY | 2023-09-16 21:29 | External Medical Summary | Summary of Care ---
Author Name Unknown Organization [facility] Address [address] [facility] [address] Phone [phone] Care Team Providers Care Media Sales Executive Name Role Phone Unavailable Primary Care Provider Unavailabl e Reason for Visit * Reason Comments Medication Refill Encounter Details Date Type Department Care Team (Late st Contact Info) Description 04/10/2023 Refill Cardiology, [facility] [address] [place] [address] Michele Jacobson O, [address] [place] [address] PVC (premature ventricular contraction)*; PSVT (paroxysmal supraventricular tachycardia); Essential hypertension with goal blood pressure less than 130/80 Allergies Active Allergy Reactions Criticality Noted Date Comments Metformin Diarrhea 05/16/2017 documented as of this encounter (statuses as of 04/10/2023) Medications Medication Sig Dispensed Refills Start Date [...] long-term current use of insulin ([facility]) Use as directed 4 times a day. Use up to four times a day as directed 100 Strip 5 2 Active FreeStyle Niyah 2 [place] Device Use as directed . 1 Each [...] long-term current use of insulin ([facility]) Take 1 Tablet by mouth in the [...] goal of less than 7.0% ([facility]) Use to inject insulin 6 times daily [...] MG Sublingual Tablet Sublingual (Nitrostat)Indicatio ns:Angina pectoris ([facility]) Place 1 Tablet under the tongue as needed for Pain, Chest. May repeat 3 times. If chest pain continues, call 911. 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 Dosage [...] the morning 90 Tablet 3 3 Active Isosorbide Mononitrate ER 30 MG Oral Tablet Extended Release 24 Hour (Imdur) Take 1 tablet by mouth in the morning 30 Tablet 4 3 023 Discontin ued(Refil l) Hospital, Clinic, or Other Facility Administered Medication Ordered Dose Route Frequency Start Date End Date Status Albuterol Sulfate (Proventil) (2.5 MG/3ML) 0.083% inhalation solution 2.5 mgIndications:Mild intermittent reactive airway disease without complication 2.5 mg NEBULIZER ONCE PRN 07/23/2022 07/23/2023 Active documented as of this encounter (statuses as of 04/10/2023) Active Problems Problem Noted Date Diagnosed Date [...] as of this encounter (statuses as of 04/10/2023) Resolved Problems Problem Noted Date Diagnosed Date Resolved Date Polyneuropathy, unspecified 07/23/2022 03/11/2023 Atherosclerosis of [place] artery of extremity 06/27/19 23 03/11/2023 Cellulitis [...] for divorce while he was hospitalized in [place]. She gave him enough money for a plane ticket to [place] to live with an old friend. He does not work and is trying to apply for social security. Would appreciate any resources. Referral placed for [facility] to assist. Assistance needed with transportation [...] Has problems with transportation. Referral placed within [facility] for assistance. Advanced care planning/counseling discussion 03/11/2023 Last Assessment & Plan: He would benefit from advanced care planning discussions. Mentioned during the visit he wishes for NO CPR or intubation. Willing to fill out a POLST form to document his wishes. Reports "when my time is up, it's up". Note sent to [facility] fiscal manager for discussion at next visit. Iliac [...] with transportation. Referral placed for assistance from [facility] for resources. Toe ulcer, left, limited [...] as of this encounter (statuses as of 04/10/2023) Immunizations Name Administration Dates Next Due Hepatitis [...] Miscellaneous Notes * Telephone Encounter - Johnny Elaine, - 04/10/2023 2:28 PM ESTSigned Prescriptions: Disp Refills Isosorbide Mononitrate ER 30 MG Oral Table*90 Tab*3 Sig: Take 1 tablet by mouth in the morning Authorizing Provider: JOHNNY ELAINE * Telephone Encounter - Carole Mcnulty COT - 04/10/2023 1:29 PM ESTPending Prescriptions: Disp Refills Isosorbide Mononitrate ER 30 MG Oral Table*90 Tab*3 Sig: Take 1 tablet by mouth in the morning * Telephone Encounter - Carole Mcnulty COT - 04/10/2023 1:28 PM EST Did you pend patient's preferred pharmacy and medication before forwarding?yes Pharmacy: [facility] Pending Prescriptions: Disp Refills Isosorbide Mononitrate ER 30 MG Oral Tabl*90 Tab*3 Sig: Take 1 tablet by mouth in the morning Last Visit: 11/12/2022 (in office), Visit date not found (telemedicine) Next Visit: 05/22/2023 If no future appointments scheduled, and last appointment is greater than a year ago, please schedule patient for a follow-up appointment Last date the medication was ordered: 06-29-2022 Is this request for a controlled substance?No [...] AM HGBA1C 10.2 (H) 12/10/2017 10:10 AM documented in this encounter Plan of Treatment Upcoming Encounters Date Type Department Care Team (Late st Contact Info) Description 04/26/2023 8:30 AM EST Laboratory Lab Mobile Phlebotomy [facility] [address] [place] [address] [facility], [facility] Mobile Home Draw [address] [place] [address] 04/29/2023 6:00 AM EST Anticoagulation Pharmacy Call Center [address] [place] [address] [facility] [address] [place] [address] 05/22/2023 9:30 AM EST Office Visit Cardiology, [facility] [address] [place] [address] Brian Dickey PA-C [address] [place] [phone] Scheduled Procedures Name Priority Associated Diagnoses Date/Ti me COLONOSCOPY FLEXIBLE PROXIMA L DIAGNOSTIC Recall Screening for colon cancer Health Maintenance Due Date Last Done Comments DISCUSS TOBACCO CESSATION (REFER TO SMARTSET #3291) 1965 COVID-19 Vaccine (#1) [birth year]10/1966 Pap Smear [...] as of this encounter Visit Diagnoses Diagnosis PVC (premature ventricular contraction)- Primary Other premature beats PSVT (paroxysmal supraventricular tachycardia) Paroxysmal supraventricular tachycardia Essential hypertension with goal blood pressure less than 130/80 documented in this encounter
--- OUTSIDE RECORDS SUMMARY | 2023-09-16 21:29 | External Medical Summary ---
Author Name Unknown Address Unknown Organization [id number]:[facility] - [address] [place] [address] Laboratory Report Ordering Provider Test Date Status ROCKY STOVER 06/07/2023 07:31:00 Final Please draw PT/INR every 1-4 weeks or as requested by the [facility] Coumadin Clinic

Warfarin Therapy
INR: 2.0-3.0 conventional anticoagulation
INR: 2.5-3.5 high intensity anticoagulation Observation Date Value Abnormality Reference (Units ) Status PT 06/07/2023 07:31:00 19.8 Above high normal 11 .6-15.2 (seconds) Final INR 06/07/2023 07:31:00 1.7 Above high normal 0. 8-1.2 Final Performing Location [facility] - [address] [place] [address]
--- OUTSIDE RECORDS SUMMARY | 2023-09-16 21:29 | External Medical Summary | Summary of Care ---
Author Name Unknown Organization [facility] Address [address] [facility] [address] Phone [phone] Care Team Providers Care Paving Stone Installer Name Role Phone Unavailable Primary Care Provider Unavailabl e Reason for Visit * Reason Comments Dosage Adjustment Via Phone (anticoag Cl inic) Encounter Details Date Type Department Care Team (Latest Contact Info) Description 05/20/2023 6:00 AM [facility] Anticoagulation Pharmacy Call Center [address] [facility] [place] [address] [facility] [address] [facility] [place] [address] penitentiary current use of anticoagulant therapy* Allergies Active Allergy Reactions Criticality Noted Date Comments Metformin Diarrhea 05/16/2017 documented as of this encounter (statuses as of 05/20/2023) Medications Medication Sig Dispensed Refills Start Date [...] Each 11 2 Active FreeStyle Niyah 2 [place] Device Use as directed . 1 Each [...] MG Sublingual Tablet Sublingual (Nitrostat)Indication s:Angina pectoris ([facility]) Place 1 Tablet under the tongue as needed for Pain, Chest. May repeat 3 times. If chest pain continues, call 911. 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 ([facility]) Inject 40 units subcutaneously in the morning and 15 units in the evening 0 3 Active Isosorbide Mononitrate ER 30 MG Oral Tablet Extended Release 24 Hour (Imdur)Indications:PV C (premature ventricular contraction),PSVT (paroxysmal supraventricular tachycardia),Essentia l hypertension with goal blood pressure less than 130/80 Take 1 tablet by mouth in the morning 90 Tablet 3 3 Active Warfarin Sodium 10 MG Oral Tablet (Coumadin)Indications :Peripheral vascular disease, unspecified ([facility]),Encounter for monitoring Coumadin therapy,Iliac artery stenosis, right ([facility]) Take 1.5- 2 tablets by mouth daily. Dosage adjustment by anticoagulation clinic. Patient aware of the tablet strength change. 60 Tablet 1 4 Active Glucose Blood In Vitro StripIndications:Type 2 diabetes mellitus without complication, with long-term current use of insulin ([facility]) Use as directed 4 times a day. Use up to four times a day as directed 100 Strip 5 4 Active Alcohol Prep 70 % Pad DIRECTED 100 Each 5 4 Active Hospital, Clinic, or Other Facility Administered Medication Ordered Dose Route Frequency Start Date End Date Status Albuterol Sulfate (Proventil) (2.5 MG/3ML) 0.083% inhalation solution 2.5 mgIndications:Mild intermittent reactive airway disease without complication 2.5 mg NEBULIZER ONCE PRN 07/23/2022 07/23/2023 Active documented as of this encounter (statuses as of 05/20/2023) Active Problems Problem Noted Date Diagnosed Date [...] as of this encounter (statuses as of 05/20/2023) Resolved Problems Problem Noted Date Diagnosed Date Resolved Date Polyneuropathy, unspecified 07/23/2022 03/11/2023 Atherosclerosis of [place]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 He does not work and is trying to apply for social security. Would appreciate any resources. Referral placed for [facility] to assist. Assistance needed with transportation 04/19/2022 03/11/2023 Hypertensive heart disease w [facility] congestive heart failure 04/19/2022 03/11/2023 Last Assessment [...] Note sent to [facility] probation manager for discussion at next visit. Iliac artery stenosis, right 03/05/2022 03/11/2023 Last Assessment & Plan: CT abd/pelvis 02/2022 at [facility] revealed occlusion of right internal iliac [...] as of this encounter (statuses as of 05/20/2023) Immunizations Name Administration Dates Next Due Hepatitis [...] as of this encounter Progress Notes * Harsha Duarte, gold miner blasting - 05/20/2023 9:08 AM EST Contacts Type Contact Phone/Fax 05/20/2023 09:03 AM EST Phone (Outgoing) Madhuri Carmona (Self) [phone] (M) Spoke to Patient Subjective Patient Findings Negatives: Signs/symptoms of thrombosis, Signs/symptoms of bleeding, [...] date communicated as noted by Pharmacist: Yes Harsha Duarte CPhT 05/20/2023, 9:08 AM * Alize Cornejo RPh - 05/20/2023 8:20 AM EST Images from the original note were not included. Coumadin Clinic (region specific) Objective Current Warfarin Dose As of 05/20/2023 Warfarin maintenance plan: 20 mg (5 mg x 4) every Sun, Darlene; 15 mg (5 mg x 3) all other days INR Result As of 05/20/2023 INR goal: 2.0-3.0 INR used for dosin.2 (05/17/2023) Assessment & Plan Warfarin Plan As of 05/20/2023 Full warfarin instructions: 05/20: Hold; Otherwise 20 mg every Sun, Darlene; 15 mg all other days Next INR check: 06/07/2023 Repeat PT/INR in 3 week(s) Weekly dose: not changed Additional Dosing Information: Description GML (Fri only) Patient does not wish to take lovenox any longer due to bruising and pain from needles Patient takes Coumadin in AM; switched to 10 mg tablets 06/08/22 after discussion with patient. Tech to contact patient with dose instructions as noted. Alize Cornejo RPh 05/20/2023, 8:20 AM documented in this encounter Plan of Treatment Upcoming Encounters Date Type Department Care Team (Late st Contact Info) Description 05/22/2023 9:30 AM EST Office Visit Cardiology, [facility] [address] [place] [address] Brian Dickey PA-C [address] [place] [address] Scheduled Procedures Name Priority Associated Diagnoses Date/Ti me COLONOSCOPY FLEXIBLE PROXIMA L DIAGNOSTIC Recall Screening for colon cancer Health Maintenance Due Date Last Done Comments DISCUSS TOBACCO CESSATION (REFER TO SMARTSET #2106) 1965 COVID-19 Vaccine (#1) 03/10/1966 Pap Smear [...] as of this encounter Visit 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
--- OUTSIDE RECORDS SUMMARY | 2023-09-16 21:29 | External Medical Summary ---
Author Name Unknown Address Unknown Organization [id number]:[facility] [address] [place] [address] Laboratory Report Ordering Provider Test Date Status ROCKY STOVER 04/26/2023 11:43:00 Final Please draw PT/INR every 1-4 weeks or as requested by the [facility] Coumadin Clinic

Warfarin Therapy
INR: 2.0-3.0 conventional anticoagulation
INR: 2.5-3.5 high intensity anticoagulation Observation Date Value Abnormality Reference (Units ) Status PT 04/26/2023 11:43:00 24.4 Above high normal 11 .6-15.2 (seconds) Final INR 04/26/2023 11:43:00 2.2 Above high normal 0. 8-1.2 Final Performing Location [facility] [address] [place] [address]
--- OUTSIDE RECORDS SUMMARY | 2023-09-16 21:29 | External Medical Summary | Summary of Care ---
Author Name Unknown Organization [facility] Address [address] [place] [address] Phone [phone] Care Team Providers Care Civil Cad Designer Name Role Phone Unavailable Primary Care Provider Unavailabl e Reason for Visit * Reason Comments Medication Refill Encounter Details Date Type Department Care Team (Late st Contact Info) Description 05/16/2023 Refill Family Practice [facility] [address] [facility] [place] [address] Julio César Pulliam, DO [address] [place] [address] Peripheral vascular disease, unspecified (HCC); Encounter for monitoring Coumadin therapy; Iliac artery stenosis, right (HCC) Allergies Active Allergy Reactions Criticality Noted Date Comments Metformin Diarrhea 05/16/2017 documented as of this encounter (statuses as of 05/17/2023) Medications Medication Sig Dispensed Refills Start Date [...] Strip 5 2 Active FreeStyle Niyah 2 [place] Device Use as directed . 1 Each [...] A1c goal of less than 7.0% ([facility]) Use to inject insulin 6 [...] Sublingual Tablet Sublingual (Nitrostat)Indicatio ns:Angina pectoris ([facility]) Place 1 Tablet under the tongue as needed for Pain, Chest. May repeat 3 times. If chest pain continues, call 911. 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 60 Tablet 1 4 Active Warfarin Sodium 10 MG Oral Tablet (Coumadin)Indication s:Peripheral vascular disease, unspecified (HCC),Encounter for monitoring Coumadin therapy,Iliac artery stenosis, right (HCC) Take 1.5-2 Tablets by mouth daily. Dosage adjustment by anticoagulation clinic. Patient aware of the tablet strength change. 60 Tablet 1 3 024 Discontin ued(Refil l) Hospital, Clinic, or Other Facility Administered Medication Ordered Dose Route Frequency Start Date End Date Status Albuterol Sulfate (Proventil) (2.5 MG/3ML) 0.083% inhalation solution 2.5 mgIndications:Mild intermittent reactive airway disease without complication 2.5 mg NEBULIZER ONCE PRN 07/23/2022 07/23/2023 Active documented as of this encounter (statuses as of 05/17/2023) Active Problems Problem Noted Date Diagnosed Date [...] as of this encounter (statuses as of 05/17/2023) Resolved Problems Problem Noted Date Diagnosed Date Resolved Date Polyneuropathy, unspecified 07/23/2022 03/11/2023 Atherosclerosis of [place] artery of extremity 06/27/1903/11/2023 Cellulitis of right [...] enough money for a plane ticket to [place] to live with an old friend. He does not work and is trying to apply for social security. Would appreciate any resources. Referral placed for [facility] to assist. Assistance needed with transportation 04/19/2022 03/11/2023 Hypertensive heart disease w [facility] congestive heart failure 04/19/2022 03/11/2023 Last Assessment [...] Has problems with transportation. Referral placed within [facility] for assistance. Advanced care planning/counseling discussion 03/11/2023 Last Assessment & Plan: He would benefit from advanced care planning discussions. Mentioned during the visit he wishes for NO CPR or intubation. Willing to fill out a POLST form to document his wishes. Reports "when my time is up, it's up". Note sent to [facility] construction quality control manager for discussion at next visit. Iliac artery stenosis, right 03/05/2022 03/11/2023 Last Assessment & Plan: CT abd/pelvis 02/2022 at [facility] revealed occlusion of right internal iliac artery with distal reconstitution. Vascular surgery was consulted and no intervention was needed. He was started on warfarin for anticoagulation. Following with anticoagulation clinic. Recommended he should follow routinely with Vascular surgery. Again, problems with transportation. Referral placed for assistance from [facility] for resources. Toe ulcer, left, limited [...] as of this encounter (statuses as of 05/17/2023) Immunizations Name Administration Dates Next Due Hepatitis [...] encounter Miscellaneous Notes * Telephone Encounter - Treva Yadav [facility] - 05/17/2023 6:36 AM ESTSigned Prescriptions: Disp Refills Warfarin Sodium 10 MG Oral Tablet (Coumadi*60 Tab*1 Sig: Take 1.5-2 Tablets by mouth daily. Dosage adjustment by anticoagulation clinic. Patient aware of the tabletstrength change.Authorizing Provider: Amanda PULLIAM User: TREVA YADAV documented in this encounter Plan of Treatment Upcoming Encounters Date Type Department Care Team (Latest Contact Info) Description 05/17/2023 8:30 AM EST Laboratory Lab Mobile Phlebotomy [facility] [address], [place] [id number] [facility] Draw [address] [place] [address] Peripheral vascular disease, unspecified (HCC); Encounter for monitoring Coumadin therapy; Iliac artery stenosis, right (HCC) 05/20/2023 6:00 AM EST Anticoagulation Pharmacy Call Center [address] [place] [address] [facility] [address] [place] [address] 05/22/2023 9:30 AM EST Office Visit Cardiology, [facility] [address] [place] [address] Brian Dickey PA-C [address] [place] [address] Scheduled Procedures Name Priority Associated Diagnoses Date/Ti [...] artery stenosis, right (HCC) Stricture of artery Peripheral vascular disease, unspecified (HCC) Peripheral vascular disease, unspecified Encounter for monitoring Coumadin therapy Encounter for therapeutic drug monitoring Iliac artery stenosis, right (HCC) Stricture of artery documented in this encounter
--- OUTSIDE RECORDS SUMMARY | 2023-09-16 21:29 | External Medical Summary ---
Author Name Unknown Address Unknown Organization [id number]:[facility] [place] [address] [place] [address] Laboratory Report Ordering Provider Test Date Status ROCKY STOVER 06/21/2023 07:31:00 Final Please draw PT/INR every 1-4 weeks or as requested by the [facility]

Warfarin Therapy
INR: 2.0-3.0 conventional anticoagulation
INR: 2.5-3.5 high intensity anticoagulation Observation Date Value Abnormality Reference (Units ) Status PT 06/21/2023 07:31:00 21.4 Above high normal 11 .6-15.2 (seconds) Final INR 06/21/2023 07:31:00 1.8 Above high normal 0. 8-1.2 Final Performing Location [facility] [place] [address] [place] [address]
--- OUTSIDE RECORDS SUMMARY | 2023-09-16 21:29 | External Medical Summary | Summary of Care ---
Author Name Unknown Organization [facility] Address [address] [facility] [place] [place] [address] Phone [phone] Care Team Providers Care Log Marker Name Role Phone Jamal Velazquez MD Primary Care Provider [phone] Reason for Visit * Reason Comments Follow Up 6 month follow up. D eveloped a productive cough a month or two ago and SOB has gotten worse again which has subsided for awhile. Ongoing palpitations/flutter but no worse then prior. Edema in LE is worse then prior. Denies chest pain and dizziness. Encounter Details Date Type Department Care Team (Latest Contact Info) Description 05/22/2023 9:30 AM EST Office Visit Cardiology, [facility] [address] [place] [id number] Brian Dickey PA-C [address] [place] [id number] ASCVD (arteriosclerotic cardiovascular disease)*; PVC (premature ventricular contraction); PSVT (paroxysmal supraventricular tachycardia); Essential hypertension with goal blood pressure less than 130/80; NSVT (nonsustained ventricular tachycardia) (HCC); Palpitations; Dyslipidemia, goal LDL below 70 Allergies Active Allergy Reactions Criticality Noted Date Comments Metformin Diarrhea 05/16/2017 documented as of this encounter (statuses as of 05/23/2023) Medications Medication Sig Dispensed Refills Start Date End Date Status D-Care Glucometer w/Device KitIndications:Type 2 diabetes mellitus without complication, with long-term current use of insulin (HCC) Use as directed . Use as directed for home glucose testing 4 times daily 1 Kit 0 2 Active LancetsIndications:T ype 2 diabetes mellitus without complication, with long-term current use of insulin ([facility]) Use as directed. 100 Each 11 2 [...] long-term current use of insulin ([facility]) Take 1 Tablet by mouth in the morning. 90 Tablet 3 3 Active Dexcom G7 Sensor Use 1 sensor every 10 days 3 Each 3 Active DULoxetine HCl 30 MG Oral Capsule Delayed Release Particles (Cymbalta)Indication s:Spinal stenosis of lumbar region with neurogenic claudication Take 2 capsules by mouth once daily 180 Capsule 3 Active Gabapentin 600 MG Oral Tablet (Neurontin)Indicatio ns:Lumbar radiculopathy Take 1 Tablet by mouth in the morning and 1 Tablet at noon and 1 Tablet before bedtime. 270 Tablet 3 Active BD Pen Needle Molly U/F 32G X 4 MM (Insulin Pen Needle)Indications:T ype 2 diabetes mellitus with hemoglobin A1c goal of less than 7.0% ([facility]) Use to inject insulin 6 [...] MG Sublingual Tablet Sublingual (Nitrostat)Indicatio ns:Angina pectoris ([facility]) Place 1 Tablet under the tongue as needed for Pain, Chest. May repeat 3 times. If chest pain continues, call 911. 25 Tablet 11 3 Active NovoLOG FlexPen 100 UNIT/ML Subcutaneous Solution Pen-injector (insulin aspart)Indications:T ype 2 diabetes mellitus with hyperglycemia, with long-term current use of insulin ([facility]),Type 2 diabetes mellitus with peripheral [...] Oral Tablet (Coumadin)Indication s:Peripheral vascular disease, unspecified ([facility]),Encounter for monitoring Coumadin therapy,Iliac artery stenosis, right ([facility]) Take 1.5- 2 tablets by mouth daily. Dosage adjustment by anticoagulation clinic. Patient aware of the tablet strength change. 60 Tablet 1 4 Active Glucose Blood In Vitro StripIndications:Typ e 2 diabetes mellitus without complication, with long-term current use of insulin ([facility]) Use as directed 4 times a day. Use up to four times a day as directed 100 Strip 5 4 Active Alcohol Prep 70 % Pad DIRECTED 100 Each 5 4 Active Insulin Glargine 100 UNIT/ML Subcutaneous Solution (Lantus)Indications: Type 2 diabetes mellitus with hyperglycemia, with long-term current use of insulin ([facility]),Type 2 diabetes mellitus with peripheral vascular disease (HCC),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 (HCC) Inject 40 units subcutaneously in the morning and 15 units in the evening 10 mL 3 4 Active Metoprolol Succinate ER 50 MG [...] leg swelling 16 Tablet 5 4 Active Acidophilus Lactobacillus Oral CapsuleIndications:A bscess of left leg Take by mouth 1 Capsule 2 times a day . 60 Capsule 5 2 024 Discontin ued(Patie nt preferenc e/discont inuation) Corebook Niyah 2 Arabi Device Use as directed . 1 Each 0 3 024 Discontin ued(Medic ation List Clean Up) Isosorbide Mononitrate ER 30 MG Oral Tablet [...] as of this encounter (statuses as of 05/23/2023) Active Problems Problem Noted Date Diagnosed Date [...] as of this encounter (statuses as of 05/23/2023) Resolved Problems Problem Noted Date Diagnosed Date Resolved Date Polyneuropathy, unspecified 07/23/2022 03/11/2023 Atherosclerosis of [place] artery of extremity 06/27/1903/11/2023 Cellulitis of right [...] for divorce while he was hospitalized in [place]. She gave him enough money for a plane ticket to [place] to live with an old friend. He does not work and is trying to apply for social security. Would appreciate any resources. Referral placed for [facility] to assist. Assistance needed with transportation 04/19/2022 03/11/2023 [facility]2022 03/11/2023 Last [...] Has problems with transportation. Referral placed within [facility] for assistance. Advanced care planning/counseling discussion 03/11/2023 Last Assessment & Plan: He would benefit from advanced care planning discussions. Mentioned during the visit he wishes for NO CPR or intubation. Willing to fill out a POLST form to document his wishes. Reports "when my time is up, it's up". Note sent to [facility] kennel manager dog track for discussion at next visit. Iliac artery stenosis, right 03/05/2022 03/11/2023 Last Assessment & Plan: CT abd/pelvis 02/2022 at [facility] revealed occlusion of right internal iliac artery with distal reconstitution. Vascular surgery was consulted and no intervention was needed. He was started on warfarin for anticoagulation. Following with anticoagulation clinic. Recommended he should follow routinely with Vascular surgery. Again, problems with transportation. Referral placed for assistance from [facility] for resources. Toe ulcer, left, limited [...] as of this encounter (statuses as of 05/23/2023) Immunizations Name Administration Dates Next Due Hepatitis [...] attempted to quit: 05/18/2022 Smokeless Tobacco: Former Tobacco Cessation:Ready to Q [...] Sign Reading Time Taken Comments Blood Pressure 126/78 05/22/2023 9:26 AM EST Pulse 76 05/22/2023 9:26 AM EST Temperature - - Respiratory Rate 16 05/22/2023 9:26 AM EST Oxygen Saturation - - Inhaled Oxygen Concentration - - Weight 165.1 kg (364 lb) 05/22/2023 9:26 AM EST Height - - Body Mass Index 53.75 10/29/2022 2:09 PM EDT documented in this encounter Progress Notes * Brian Dickey PA-C - 05/22/2023 9:30 AM EST History of Present Illness: Madhuri Carmona is a 57 year old adult who was initially referred to in May 2022 for evaluation of an abnormal Zio monitoring revealing nonsustained ventricular tachycardia and supraventricular tachycardia. Patient reporting resting chest discomfort as well as significant dyspnea at that time, symptoms concerning for angina. Patient refer for diagnostic cardiac catheterization revealing borderline lesion in the left circumflex artery (see below. Medical management recommended. Toprol-XL 50 mg/day prescribed. Patient last seen in this office by Dr. Elaine in October 2022, for preoperative evaluation prior to colonoscopy. The patient is being evaluated by the undersigned for the 1st time today. Goes by [facility]. Notes good days and bad days. Feeling good most of the time. No chest pain or discomfort. + Palpitations and dyspnea occur with any activity, such as walking across the room. Ongoing tobacco abuse, currently a light smoker, previously smoking up to 3 ppd Notes having to lay on the left side to breath right, occasional with PND. Notes noncompliance with CPAP therapy. + Lower extremity edema. Occasional lightheadedness/dizziness with positional changes. No syncope. No epistaxis, hemoptysis, melena, hematochezia, or hematuria. Problem List: ASCVD Frequent PAC's (8.5% burden) Supraventricular tachycardia Nonsustained ventricular tachycardia Longstanding type 2 diabetes mellitus with neuropathy Peripheral vascular disease, iliac artery stenosis, followed by [place] History of diabetic ulcer well as lower extremity cellulitis Chronic tobacco abuse Hypertension Chronic right bundle branch block Dyslipidemia Obesity Obstructive sleep apnea, intolerant to CPAP Patient Active Problem List Diagnosis Code Type 2 diabetes mellitus with hemoglobin A1c goal of less than 7.0% ([facility]) E11.9 PVD (peripheral vascular disease) ([facility]) I73.9 Super obese E66.9 Tobacco use disorder F17.200 Dyslipidemia E78.5 MEETA (obstructive sleep apnea) G47.33 Spinal stenosis of lumbar region with neurogenic claudication M48.062 Lumbar degenerative disc disease M51.36 HTN, goal below 130/80 I10 PSVT (paroxysmal supraventricular tachycardia) I47.10 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 ([facility]) E11.621, L97.509 Past Medical History: Diagnosis Date MEETA (obstructive sleep apnea) 02/12/2022 Super-super obese (HCC) 02/12/2022 Past Surgical History: Procedure Laterality Date COLONOSCOPY, DIAGNOSTIC (RECTUM) N/A 03/28/2023 hemorrhoids/biopsies show hyperplastic polyps/recall 10 years/Colonoscopy/[place] INFORMATION dislocated hip surgery INFORMATION 12/2016 laminectomy from L3 to S1, Family History Problem Relation Age of Onset Cancer Mother unknown Cancer Father esophageal cancer Cancer Aunt (Unspecified) paternal Social History Socioeconomic History Marital status: Spouse name: Not on file Number of children: 2 Years of education: Not on file Highest education level: Not on file Occupational History 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 maybe one beer a year Drug use: Yes Types: Marijuana Sexual activity: Not on file Other Topics [...] on file Housing Stability: Not on file Social History Social History Narrative Not on file Complete Review of Systems is as stated above, negative, or noncontributory. Review of patient's allergies indicates: Allergen Reactions Metformin Diarrhea Current Outpatient Medications Medication Sig Dispense Refill D-Care Glucometer w/Device Kit Use as directed . Use as directed for home glucose testing 4 times daily 1 Kit 0 Lancets Use as directed. 100 Each 11 Albuterol Sulfate HFA 108 (90 Base) MCG/ACT Inhalation Aerosol Solution Inhale 2 Puffs by mouth every 6 hours as needed for Cough, Shortness of Breath or Wheezing. 18 g 5 Clopidogrel Bisulfate 75 MG Oral Tablet (Plavix) Take 1 Tablet by mouth in the morning. 90 Tablet 3 Dexcom G7 Sensor Use 1 sensor every 10 days 3 Each 11 DULoxetine HCl 30 MG Oral Capsule Delayed Release Particles (Cymbalta) Take 2 capsules by mouth once daily 180 Capsule 3 Gabapentin 600 MG Oral Tablet (Neurontin) Take 1 Tablet by mouth in the morning and 1 Tablet at noon and 1 Tablet before bedtime. 270 Tablet 3 BD Pen Needle Molly U/F 32G X 4 MM (Insulin Pen Needle) Use to inject insulin 6 times daily 300 Each5 Lisinopril 40 MG Oral Tablet Take 1 Tablet by mouth in the morning. 90 Tablet 3 Metoprolol Succinate ER 50 MG Oral Tablet Extended Release 24 Hour (toPROL XL) Take 1 Tablet by mouth in the morning. 90 Tablet 3 Nitroglycerin 0.4 MG Sublingual Tablet Sublingual (Nitrostat) [...] as per sliding scale. 45 mL 3 Atorvastatin Calcium 40 MG Oral Tablet (Lipitor) Take 1 Tablet by mouth in the morning. 90 Tablet 3 Ammonium Lactate 12 % External Cream Apply topically to affected area 2 times a day. To affected area. 385 g 11 Ferrous Sulfate 325 (65 Fe) MG Oral Tablet (Feosol) Take 1 Tablet by mouth in the morning and 1 Tablet before bedtime. 60 Tablet 1 Isosorbide Mononitrate ER 30 MG Oral Tablet Extended Release 24 Hour (Imdur) Take 1 tablet by mouthin the morning 90 Tablet 3 Warfarin Sodium 10 MG Oral Tablet (Coumadin) Take 1.5- 2 tablets by mouth daily. Dosage adjustment by anticoagulation clinic. Patient aware of the tablet strength change. 60 Tablet 1 Glucose Blood In Vitro Strip Use as directed 4 times a day. Use up to four times a day as directed 100 Strip 5 Alcohol Prep 70 % Pad DIRECTED 100 Each 5 Insulin Glargine 100 UNIT/ML Subcutaneous Solution (Lantus) Inject 40 units subcutaneously in the morning and 15 units in the evening 10 mL 3 Varenicline Tartrate 0.5 MG Oral Tablet (Chantix) Take 1 Tablet by mouth in the morning and 1 Tablet in the evening. (Patient not taking: Reported on 11/12/2022) 53 Tablet 0 Nicotine 14 MG/24HR Transdermal Patch 24 Hour (Nicoderm CQ) Place 1 Patch over 24 hours topically on the skin daily. 28 Patch 1 No current facility-administered medications for this visit. OBJECTIVE/PHYSICAL EXAMINATION: BP 126/78 | Pulse 76 | Resp 16 | Wt (!) 165.1 kg (364 lb) | BMI 53.75 kg/m | BSA 2.84 m Examined in a wheelchair General: Alert and oriented x3. No acute distress. Pleasant. Comfortable. Cooperative. Skin: Marked stasis changes on the lower extremities. Eyes: PER. Conjunctiva pink, sclera clear. HENT: Normocephalic. Atraumatic. Neck: No carotid bruits. No JVD. No HJR. Heart: Regular at 70 bpm. No murmur. No rub. No gallop. PMI is nondisplaced. Lungs: Clear to auscultation. No wheeze. No rales. No rhonchi Abdomen: +BS. Soft. Nontender. No masses. No organomegaly. Extremities: Mild edema. Marked stasis changes. No clubbing. No cyanosis Pulses: radial=2/4, posterior tibial=0/4. Limited neurological examination: No focal deficit. Data: Exercise stress echo report May 23, 2017: The stress echo is negative for inducible ischemia. There was an adequate and appropriate heart rate and blood pressure response to the dobutamine/atropine stress protocol. The stress EKG response showed no evidence of ischemia. Occasional PVCs were noted with stress. The left ventricular wall motion is normal. The left ventricular wall motion with stress is normal. The left ventricular ejection fraction increases normally with stress. The LV wall thickness is moderately increased (concentric). The qualitative LV ejection fraction is 5054% (normal). The left ventricular diastolic function is mildly abnormal (grade I). 2D echocardiogram report May 22, 2022: The qualitative LV ejection fraction is 50-54% (normal). The LV wall thickness is mildly increased (concentric). The right ventricular cavity is mildly dilated. The right ventricular systolic function is normal as assessed by tricuspid annular plane systolic excursion (TAPSE) (normal >1.7cm). Mild mitral regurgitation is present. Mild tricuspid regurgitation is present. There is no evidence of pulmonary hypertension. The proximal ascending thoracic aorta is mildly enlarged. Compared to last available study changes are noted as follows: Mild right ventricular enlargement now present. 8 Day Zio (rhythm strips personally reviewed) 04/24/2022: Patient had a min HR of 58 bpm, max HR of 240 bpm, and avg HR of 87 bpm. Predominant underlying rhythm was Sinus Rhythm. Bundle Branch Block/IVCD was present. 20 Ventricular Tachycardia runs occurred, the run with the fastest interval lasting 6 beats with a max rate of 240 bpm, the longest lasting 6 beats with an avg rate of 122 bpm. 120 Supraventricular Tachycardia runs occurred, the run with the fastest interval lasting 6 beats with a max rate of 176 bpm, the longest lasting 14.5 secs with an avg rate of 109 bpm. Ventricular Tachycardia was detected within +/- 45 seconds of symptomatic patient event(s). Isolated SVEs were frequent (8. 5%, 53062), SVE Couplets were rare (<1.0%, 2064), and SVE Triplets were rare (<1.0%, 218). Isolated VEs were frequent (10.4%, 022193), VE Couplets were rare (<1.0%, 4755), and VE Triplets were rare (<1.0%, 674). Ventricular Bigeminy and Trigeminy were present. Symptoms correlate with ventricular ectopy. Patient was not prescribed AV jb kian therapy during the Zio monitoring period. June 29, 2022 Coronary Angiography ([facility], Dr. Jacobson): Right-dominant coronary anatomy. Normal left main. Lad with luminal irregularities, 10%. D1 with ostial 20% stenosis, 30% midvessel stenosis.D2 with luminal irregularities, 10%. Left circumflex with a 60% distal stenosis. OM1 with a 20% midvessel stenosis. Normal OM2. Left PL1 with a 30% mid vessel stenosis. RCA with a 40% midvessel stenosis. FFR analysis of the borderline left circumflex lesion by Dr. Zuniga revealed a peak FFR of 0.84, not hemodynamically significant (but also not normal) ASSESSMENT AND RECOMMENDATIONS/PLAN: ASCVD. Seemingly stable. Continue medical management, metoprolol, isosorbide, clopidogrel, moderateintensity statin therapy, ZOË inhibition with Lisinopril 40 mg/day. Tobacco cessation urged. Palpitations. Prior Zio with frequent PAC's (8.5% burden), supraventricular tachycardia, nonsustained ventricular tachycardia. Continue metoprolol succinate 50 mg/day. Repeat Zio monitor x 7 days, adjusting metoprolol dosing as needed. Diastolic heart failure, HFpEF. Add low dose furosemide, 20 mg up to three days per week only as needed. Chronic tobacco abuse. Tobacco cessation urged. Peripheral vascular disease, iliac artery stenosis, followed by [facility] Longstanding type 2 diabetes mellitus with neuropathy. Followed by PCP Hypertension. Controlled. Dyslipidemia. Recommend targeting an optimal LDL cholesterol of less than 70 mg/day. Obstructive sleep apnea, intolerant to CPAP Routine cardiology follow-up in 6 months or as needed. ER with emergencies. Brian Dickey PA-C Department of Cardiology CC: PCP: JAMAL VELAZQUEZ [address] [place] [address] [place] [address] [phone] documented in this encounter Nursing Notes * Casimiro Miramontes LPN - 05/22/2023 9:26 AM EST Patient identified by full name and date of Chief Complaint Patient presents with Follow Up 6 month follow up. Developed a productive cough a month or two ago and SOB has gotten worse again which has subsided for awhile. Ongoing palpitations/flutter but no worse then prior. Edema in LE is worse then prior. Denies chest pain and dizziness. Examination Room: 2 Name: Madhuri Carmona Date of : (1965). Reason for Visit: 6 month follow up Interim Hospitalization(s): Denies Problems/Concerns: See chief complaint Chest Pain/SOB: See chief complaint [facility] Discussed: Yes [facility] is a way you can talk to your provider online through e-mail. Would you like to sign up? I can activate it for you? ALREADY ACTIVE Patient was instructed to not get up on the exam table until directed and assisted by their provider; patient is to remain seated in the chair/ wheelchair/ exam table for fall prevention and safety reasons. Patient is aware to have assistance to step down off exam table with personnel. Patient voiced full comprehension of instructions. documented in this encounter Plan of Treatment Upcoming Encounters Date Type Department Care Team (Late st Contact Info) Description 06/07/2023 8:10 AM EST Laboratory Lab Mobile Phlebotomy [facility] [address] [place] [address] [facility], [facility] Mobile Home Draw [address] [place] [address] 06/08/2023 8:40 AM EST Office Visit Family [facility] [address] [place] [id number] Jamal Velazquez MD [address] [place] [address] 06/10/2023 6:00 AM EST Anticoagulation Pharmacy Call Center [address] [facility] [place] [address] [facility], [facility] [address] [facility] [place] [address] Scheduled Orders Name Type Priority Associated Diagnoses Orde r Schedule EXTERNAL EKG 2 TO 7 DAYS Holter Routine PVC (premature ventricular contraction) PSVT (paroxysmal supraventricular tachycardia) NSVT (nonsustained ventricular tachycardia) (HCC) Palpitations Expected: 05/23/2023 (Approximate), Expires: 05/22/2024 Scheduled Procedures Name Priority Associated Diagnoses Date/Ti [...] as of this encounter Visit Diagnoses Diagnosis ASCVD (arteriosclerotic cardiovascular disease)- Primary Unspecified cardiovascular disease PVC (premature ventricular contraction) Other premature beats PSVT (paroxysmal supraventricular tachycardia) Paroxysmal supraventricular tachycardia Essential hypertension with goal blood pressure less than 130/80 NSVT (nonsustained ventricular tachycardia) (HCC) Paroxysmal ventricular tachycardia Palpitations Dyslipidemia, goal LDL below 70 Other and unspecified hyperlipidemia documented in this encounter Care Teams Log Marker Relationship Specialty Start Date End Date Jamal Velazquez MD [address] [facility] [place] [address] PCP - General Family Medicine 05/22/23 documented as of this encounter
--- OUTSIDE RECORDS SUMMARY | 2023-09-16 21:30 | External Medical Summary | Summary of Care ---
Author Name Unknown Organization [facility] Address [address] [place] [facility] [place] [address] Phone [phone] Care Team Providers Care Director Agency & Strategic Partnerships Name Role Phone Unavailable Primary Care Provider Unavailabl e Reason for Visit * Reason Comments Dosage Adjustment Via Phone (anticoag Cl inic) Encounter Details Date Type Department Care Team (Latest Contact Info) Description 04/05/2023 6:00 PM [facility] Anticoagulation Pharmacy Call Center [phone] [place] [address] [facility] [address] [facility] [place] [address] Anticoagulation management encounter* Allergies Active Allergy Reactions Criticality Noted Date Comments Metformin Diarrhea 05/16/2017 documented as of this encounter (statuses as of 04/05/2023) Medications Medication Sig Dispensed Refills Start Date End Date Status Acidophilus Lactobacillus Oral CapsuleIndications :Abscess of left leg Take by mouth 1 Capsule 2 times a day . 60 Capsule 5 02/08/2022 Active Additional Information Patient not taking.Reported on 11/12/2022 D-Care Glucometer w/Device KitIndications:Typ e 2 diabetes mellitus without complication, with long-term current use of insulin (HCC) Use as directed . Use as directed for home glucose testing 4 times daily 1 Kit 0 02/08/2022 Active LancetsIndications :Type 2 diabetes mellitus without complication, with long-term current use of insulin (HCC) Use as directed. 100 Each 11 02/08/2022 Active OneTouch Ultra Blue In Vitro Strip (Glucose Blood)Indications: Type 2 diabetes mellitus without complication, with long-term current use of insulin (HCC) Use as directed 4 times a day. Use up to four times a day as directed 100 Strip 5 03/16/2022 Active FreeStyle Niyah 2 [place] Device Use as directed . 1 Each 0 05/03/2022 Active Albuterol Sulfate HFA 108 (90 Base) MCG/ACT Inhalation Aerosol SolutionIndication s:Mild intermittent reactive airway disease without complication Inhale 2 Puffs by mouth every 6 hours as needed for Cough, Shortness of Breath or Wheezing. 18 g 5 07/23/2022 Active Alcohol Prep 70 % Pad DIRECTED 100 Each 07/24/2022 Active Clopidogrel Bisulfate 75 MG Oral Tablet (Plavix)Indication s:Type 2 diabetes mellitus with diabetic peripheral angiopathy and gangrene, with long-term current use of insulin ([facility]) Take 1 Tablet by mouth in the morning. 90 Tablet 08/16/2022 Active Dexcom G7 Sensor Use 1 sensor every 10 days 3 Each 08/16/2022 Active DULoxetine HCl 30 MG Oral Capsule Delayed Release Particles (Cymbalta)Indicati ons:Spinal stenosis of lumbar region with neurogenic claudication Take 2 capsules by mouth once daily 180 Capsule 08/16/2022 Active Gabapentin 600 MG Oral Tablet (Neurontin)Indicat ions:Lumbar radiculopathy Take 1 Tablet by mouth in the morning and 1 Tablet at noon and 1 Tablet before bedtime. 270 Tablet 08/16/2022 Active BD Pen Needle Molly U/F 32G X 4 MM (Insulin Pen Needle)Indications :Type 2 diabetes mellitus with hemoglobin A1c goal of less than 7.0% ([facility]) Use to inject insulin 6 times daily 300 Each 08/16/2022 Active Lisinopril 40 MG Oral TabletIndications: HTN, goal below 130/80 Take 1 Tablet by mouth in the morning. 90 Tablet 08/16/2022 Active Metoprolol Succinate ER 50 MG Oral Tablet Extended Release 24 Hour (toPROL XL) Take 1 Tablet by mouth in the morning. 90 Tablet 08/16/2022 Active Nitroglycerin 0.4 MG Sublingual Tablet Sublingual (Nitrostat)Indicat ions:Angina pectoris ([facility]) Place 1 Tablet under the [...] as per sliding scale. 45 mL 3 08/16/2022 Active Atorvastatin Calcium 40 MG Oral Tablet (Lipitor) Take 1 Tablet by mouth in the morning. 90 Tablet 3 08/16/2022 Active Isosorbide Mononitrate ER 30 MG Oral Tablet Extended Release 24 Hour (Imdur) Take 1 tablet by mouth in the morning 30 Tablet 4 06/29/2022 Active Varenicline Tartrate 0.5 MG Oral Tablet (Chantix)Indicatio ns:Tobacco use Take 1 Tablet by mouth in the morning and 1 Tablet in the evening. 53 Tablet 0 10/29/2022 Active Additional Information Patient not taking.Reported on 11/12/2022 Ammonium Lactate 12 % External CreamIndications:V enous stasis dermatitis of both lower extremities Apply topically to affected area 2 times a day. To affected area. 385 g 11 10/29/2022 Active Additional Information Patient not taking.Reported on 11/12/2022 Ferrous Sulfate 325 (65 Fe) MG Oral Tablet (Feosol)Indication s:Iron deficiency anemia, unspecified iron deficiency anemia type Take 1 Tablet by mouth in the morning and 1 Tablet before bedtime. 60 Tablet 1 02/25/2023 Active Insulin Glargine 100 UNIT/ML Subcutaneous Solution (Lantus)Indication s:Type 2 diabetes mellitus with hyperglycemia, with long-term current use of insulin (HCC),Type 2 diabetes mellitus with peripheral vascular disease (HCC),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 (HCC) Inject 40 units subcutaneously in the morning and 15 units in the evening 0 02/25/2023 Active Warfarin Sodium 10 MG Oral Tablet (Coumadin)Indicati ons:Peripheral vascular disease, unspecified (HCC),Encounter for monitoring Coumadin therapy,Iliac artery stenosis, right (HCC) Take 1.5-2 Tablets by mouth daily. Dosage adjustment by anticoagulation clinic. Patient aware of the tablet strength change. 60 Tablet 1 02/26/2023 Active Hospital, Clinic, or Other Facility Administered Medication Ordered Dose Route Frequency Start Date End Date Status Albuterol Sulfate (Proventil) (2.5 MG/3ML) 0.083% inhalation solution 2.5 mgIndications:Mild intermittent reactive airway disease without complication 2.5 mg NEBULIZER ONCE PRN 07/23/2022 07/23/2023 Active documented as of this encounter (statuses as of 04/05/2023) Active Problems Problem Noted Date Diagnosed Date [...] as of this encounter (statuses as of 04/05/2023) Resolved Problems Problem Noted Date Diagnosed Date Resolved Date Polyneuropathy, unspecified 07/23/2022 03/11/2023 Atherosclerosis of [place] artery of extremity 06/27/1903/11/2023 Cellulitis of right [...] enough money for a plane ticket to [place] to live with an old friend. He does not work and is trying to apply for social security. Would appreciate any resources. Referral placed for [facility] to assist. Assistance needed with transportation [...] Has problems with transportation. Referral placed within [facility] for assistance. Advanced care planning/counseling discussion 03/11/2023 Last Assessment & Plan: He would benefit from advanced care planning discussions. Mentioned during the visit he wishes for NO CPR or intubation. Willing to fill out a POLST form to document his wishes. Reports "when my time is up, it's up". Note sent to [facility] logistics manager for discussion at next visit. Iliac artery stenosis, right 03/05/2022 03/11/2023 Last Assessment & Plan: CT abd/pelvis 02/2022 at [facility] revealed occlusion of right internal iliac artery with distal reconstitution. Vascular surgery was consulted and no intervention was needed. He was started on warfarin for anticoagulation. Following with anticoagulation clinic. Recommended he should follow routinely with Vascular surgery. Again, problems with transportation. Referral placed for assistance from [facility] for resources. Toe ulcer, left, limited [...] as of this encounter (statuses as of 04/05/2023) Immunizations Name Administration Dates Next Due Hepatitis [...] of this encounter Progress Notes * Alize Santos CPhT - 04/05/2023 1:25 PM EST Contacts Type Contact Phone/Fax 04/05/2023 01:22 PM EST Phone (Outgoing) Madhuri Carmona (Self) [phone] (M) Subjective Patient Findings Negatives: Signs/symptoms of bleeding, Change in health, Change in activity, Upcoming invasive procedure, Missed doses, Extra doses, Change in medications, Change in diet/appetite, Bruising Advised patient to contact Anticoagulation Clinic if any unusual bruising or bleeding, recent illness, changes in medication, or questions/concerns. PT/INR results, Coumadin dose instructions, and next PT/INR date communicated as noted by Pharmacist: Yes Alize Santos CPhT 04/05/2023, 1:25 PM * Candace Leung RPh - 04/05/2023 12:31 PM EST Coumadin Clinic (region specific) Objective Current Warfarin Dose As of 04/05/2023 Warfarin maintenance plan: 20 mg (5 mg x 4) every Sun, Darlene; 15 mg (5 mg x 3) all other days INR Result As of 04/05/2023 INR goal: 2.0-3.0 INR used for dosin.3 (04/05/2023) Assessment & Plan Warfarin Plan As of 04/05/2023 Full warfarin instructions: 20 mg every Sun, Darlene; 15 mg all other days No change documented: Candace Leung RPh Next INR check: 04/26/2023 Repeat PT/INR in 3 week(s) Weekly dose: not changed Additional Dosing Information: Description GML (Fri only) Patient does not wish to take lovenox any longer due to bruising and pain from needles Patient takes Coumadin in AM; switched to 10 mg tablets 06/08/22 after discussion with patient. Tech to contact patient with dose instructions as noted. Candace Leung RPh 04/05/2023, 12:31 PM documented in this encounter Plan of Treatment Upcoming Encounters Date Type Department Care Team (Late st Contact Info) Description 05/22/2023 9:30 AM EST Office Visit Cardiology, [facility] [address] [place] [address] Brian Dickey PA-C [address] [place] [address] Scheduled Procedures Name Priority Associated Diagnoses Date/Ti me COLONOSCOPY FLEXIBLE PROXIMA L DIAGNOSTIC Recall Screening for colon cancer Health Maintenance Due Date Last Done Comments DISCUSS TOBACCO CESSATION (REFER TO SMARTSET #5635) 1965 COVID-19 Vaccine (#1) 03/10/1966 Pap Smear [...] 08/23/2023 02/22/2023, 0707/2022, 05/17/2022, Additional history exists GFR 03/22/2024 03/22/2023, 11/0 06/2022, 11/12/2022, Additional history exists DTaP,Tdap,and Td Vaccines (3 - Td or Tdap) 05/16/2027 05/16/2017, 04/22/2007 Lipid Panel 11/13/2027 11/12/2022, 08/2 04/2017, 05/16/2017, Additional history exists Colonoscopy 03/28/2033 03/28/2023 [...]
--- OUTSIDE RECORDS SUMMARY | 2023-09-16 21:30 | External Medical Summary ---
Author Name Unknown Address Unknown Organization [id number] [address] [place] [address] Laboratory Report Ordering Provider Test Date Status ROCKY STOVER 04/05/2023 07:32:00 Final Please draw PT/INR every 1-4 weeks or as requested by the [facility] Coumadin Clinic

Warfarin Therapy
INR: 2.0-3.0 conventional anticoagulation
INR: 2.5-3.5 high intensity anticoagulation Observation Date Value Abnormality Reference (Units ) Status PT 04/05/2023 07:32:00 25.9 Above high normal 11 .6-15.2 (seconds) Final INR 04/05/2023 07:32:00 2.3 Above high normal 0. 8-1.2 Final Performing Location [facility] [address] [place] [address]
--- OUTSIDE RECORDS SUMMARY | 2023-09-16 21:30 | External Medical Summary | Summary of Care ---
Author Name Unknown Organization [facility] Address [address] [place] [address] Phone [phone] Care Team Providers Care Metal Reclamation Kettle Tender Name Role Phone Unavailable Primary Care Provider Unavailabl e Encounter Details Date Type Department Care Team (Late st Contact Info) Description 03/28/2023 9:30 AM EST Procedure Only Endoscopy, [facility] [address] [facility] [place] [address] [facility]ija [facility] [address] [facility] [place] [address] Colon cancer screening* Allergies Active Allergy Reactions Criticality Noted Date Comments Metformin Diarrhea 05/16/2017 documented as of this encounter (statuses as of 04/01/2023) Medications Medication Sig Dispensed Refills Start Date [...] Strip 5 03/16/2022 Active FreeStyle Niyah 2 [place] Device Use as directed . 1 Each 0 05/03/2022 Active Albuterol Sulfate HFA 108 (90 Base) MCG/ACT Inhalation Aerosol SolutionIndication s:Mild intermittent reactive airway disease without complication Inhale 2 Puffs by mouth every 6 hours as needed for Cough, Shortness of Breath or Wheezing. 18 g 07/23/2022 Active Alcohol Prep 70 % Pad [...] ([facility]) Take 1.5-2 Tablets by mouth daily. Dosage [...] as of this encounter (statuses as of 04/01/2023) Active Problems Problem Noted Date Diagnosed Date [...] as of this encounter (statuses as of 04/01/2023) Resolved Problems Problem Noted Date Diagnosed Date Resolved Date Polyneuropathy, unspecified 07/23/2022 03/11/2023 Atherosclerosis of [place] artery of extremity 06/27/1903/11/2023 Cellulitis of right [...] for divorce while he was hospitalized in [place]. She gave him enough money for a plane ticket to [place] to live with an old friend. He does not work and is trying to apply for social security. Would appreciate any resources. Referral placed for [facility] to assist. Assistance needed with transportation 04/19/2022 03/11/2023 Hypertensive heart disease w [facility] congestive heart failure 04/19/2022 03/11/2023 Last [...] Has problems with transportation. Referral placed within [facility] for assistance. Advanced care planning/counseling discussion 03/11/2023 Last Assessment & Plan: He would benefit from advanced care planning discussions. Mentioned during the visit he wishes for NO CPR or intubation. Willing to fill out a POLST form to document his wishes. Reports "when my time is up, it's up". Note sent to [facility] apartment house manager for discussion at next visit. Iliac artery stenosis, right 03/05/2022 03/11/2023 Last Assessment & Plan: CT abd/pelvis 02/2022 at [facility] revealed occlusion of right internal iliac artery with distal reconstitution. Vascular surgery was consulted and no intervention was needed. He was started on warfarin for anticoagulation. Following with anticoagulation clinic. Recommended he should follow routinely with Vascular surgery. Again, problems with transportation. Referral placed for assistance from [facility] for resources. Toe ulcer, left, [...] as of this encounter (statuses as of 04/01/2023) Immunizations Name Administration Dates Next Due Hepatitis [...] Care Team (Late st Contact Info) Description 04/05/2023 8:50 AM EST Laboratory Lab Mobile Phlebotomy [facility] [address] [facility] [place] [address] [facility], [facility] Mobile Home Draw [address] [place] [facility] [place] [address] 04/05/2023 6:00 PM EST Anticoagulation Pharmacy Call Center WB [address] [place] [address] [facility] [address] [facility] [place] [address] 05/22/2023 9:30 AM EST Office Visit Cardiology, [facility] [address] [place] [address] Brian Dickey PA-C [address] [place] [address] Health Maintenance Due Date Last Done Comments DISCUSS TOBACCO CESSATION (REFER TO SMARTSET #9758) 1965 COVID-19 Vaccine (#1) 03/10/1966 Pap Smear [...] 05/17/2022, Additional history exists GFR 03/22/2024 03/22/2023, 11/06/2022, 11/12/2022, Additional history exists DTaP,Tdap,and Td Vaccines [...] Not on filedocumented as of this encounter Procedures Procedure Name Priority Date/Time Associated Diagnosis Comments COLONOSCOPY 03/28/2023 documented in this encounter Results * COLONOSCOPY (03/28/2023) 03/28/2023 Mayra eLija MD GASTRO LOWER documented in this encounter Visit Diagnoses Diagnosis Colon cancer screening- Primary Special screening for malignant neoplasms, colon documented in this encounter
--- OUTSIDE RECORDS SUMMARY | 2023-09-16 21:30 | External Medical Summary | Summary of Care ---
Author Name Unknown Organization [facility] Address [address] [place] [facility] [place] [address] Phone [phone] Care Team Providers Care Endocrinology Specialist Name Role Phone Unavailable Primary Care Provider Unavailabl e Encounter Details Date Type Department Care Team (Late st Contact Info) Description 03/28/2023 Result Scan Unspecified Department Mayra Leija MD [address] [facility] [place] [address] <No scans attached> Allergies Active Allergy Reactions Criticality Noted Date [...] as directed 100 Strip 5 03/16/2022 Active [facility] Niyah 2 [place] Device Use as directed . 1 Each [...] long-term current use of insulin ([facility]) Take 1 Tablet by mouth in the morning. 90 Tablet 3 08/16/2022 Active Dexcom G7 Sensor Use 1 sensor every 10 days 3 Each 08/16/2022 Active DULoxetine HCl 30 MG Oral Capsule Delayed Release Particles (Cymbalta)Indicati ons:Spinal stenosis of lumbar region with neurogenic claudication Take 2 capsules by mouth once daily 180 Capsule 3 08/16/2022 Active Gabapentin 600 MG Oral Tablet (Neurontin)Indicat ions:Lumbar radiculopathy Take 1 Tablet by mouth in the morning and 1 Tablet at noon and 1 Tablet before bedtime. 270 Tablet 3 08/16/2022 Active BD Pen Needle Molly U/F 32G X 4 MM (Insulin Pen Needle)Indications :Type 2 diabetes mellitus with hemoglobin A1c goal of less than 7.0% ([facility]) Use to inject insulin 6 times daily 300 Each 08/16/2022 Active Lisinopril 40 MG Oral TabletIndications: HTN, goal below 130/80 Take 1 Tablet by mouth in the morning. 90 Tablet 3 08/16/2022 Active Metoprolol Succinate ER 50 MG Oral Tablet Extended Release 24 Hour (toPROL XL) Take 1 Tablet by mouth in the morning. 90 Tablet 3 08/16/2022 Active Nitroglycerin 0.4 MG Sublingual Tablet Sublingual (Nitrostat)Indicat ions:Angina pectoris ([facility]) Place 1 Tablet under the tongue as needed for Pain, Chest. May repeat 3 times. If chest pain continues, call 911. 25 Tablet 11 08/16/2022 Active NovoLOG FlexPen 100 UNIT/ML Subcutaneous [...] long-term current use of insulin ([facility]),Type 2 diabetes mellitus with peripheral vascular disease (HCC),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 (HCC) Inject 40 units subcutaneously in the morning and 15 units in the evening 0 02/25/2023 Active Warfarin Sodium 10 MG Oral Tablet (Coumadin)Indicati ons:Peripheral vascular disease, unspecified (HCC),Encounter for monitoring Coumadin therapy,Iliac artery stenosis, right ([facility]) Take 1.5-2 Tablets by mouth daily. Dosage [...] Date Polyneuropathy, unspecified 07/23/2022 03/11/2023 Atherosclerosis of [place] artery of extremity 06/27/1903/11/2023 Cellulitis of right [...] for divorce while he was hospitalized in [place]. She gave him enough money for a plane ticket to [place] to live with an old friend. He does not work and is trying to apply for social security. Would appreciate any resources. Referral placed for [facility] to assist. Assistance needed with transportation 04/19/2022 03/11/2023 [facility] 04/19/2022 03/11/2023 Last [...] problems with transportation. Referral placed within [facility] for assistance. Advanced care planning/counseling discussion 03/11/2023 Last Assessment & Plan: He would benefit from advanced care planning discussions. Mentioned during the visit he wishes for NO CPR or intubation. Willing to fill out a POLST form to document his wishes. Reports "when my time is up, it's up". Note sent to [facility] marketing and promotions manager for discussion at next visit. Iliac [...] transportation. Referral placed for assistance from [facility] for resources. Toe ulcer, left, limited [...] 8:50 AM EST Laboratory Lab [place] [facility] [address] [place] [address] [facility], [facility] Mobile Home Draw [address] [place] [address] 04/05/2023 6:00 PM EST Anticoagulation Pharmacy Call Center [address] [facility] [place] [address] [facility] [address] [facility] [place] [address] 05/22/2023 9:30 AM EST Office Visit Cardiology, [address] [place] [address] Brian Dickey PA-C [address] [place] [address] Health Maintenance Due Date Last Done Comments DISCUSS TOBACCO CESSATION (REFER TO SMARTSET #3087) 1965 COVID-19 Vaccine (#1) 03/10/1966 Pap Smear [...] Procedure Name Priority Date/Time Associated Diagnosis Comments PATHOLOGY SCANNED RESULT 03/28/2023 documented in this encounter Results * PATHOLOGY SCANNED RESULT (03/28/2023) 03/28/2023 Mayra Leija MD PATHOLOGY documented in this encounter
[2023-09-16] MEDS: FUROSEMIDE 40 MG/4 ML VIAL IV ONE (23:04)
[2023-09-16 23:13] LABS: Basophils # (auto) 0.11 K/uL (0.00-0.20); Basophils % (auto) 0.6 %; Eosinophils # (auto) 0.12 K/uL (0.00-0.50); Eosinophils % (auto) 0.7 %; Hematocrit (blood only) 22.7 % (42.0-52.0); Hemoglobin 7.2 g/dl (14.0-18.0); Immature Granulocytes # (auto) 0.47 K/uL (0.01-0.20); Immature Granulocytes % (auto) 2.6 %; Lymphocytes % (auto) 11.7 %; Mean Corpuscular Hemoglobin 31.9 pg (25.0-34.0); Mean Corpuscular Hgb Conc 31.7 g/dL (32.0-36.0); Mean Corpuscular Volume 100.4 fL (80.0-100.0); Mean Platelet Volume 12.1 fL (9.4-12.4); Monocytes # (auto) 1.22 K/uL (0.11-0.59); Monocytes % (auto) 6.8 %; Neutrophils # (auto) 13.91 K/uL (1.40-6.50); Neutrophils % (auto) 77.6 %; Nucleated RBC # (auto) 0.17 K/uL (0.00-0.12); Nucleated RBC % (auto) 0.9 %; Platelet Count 320 K/uL (130-400); RDW Coefficient of Variation 18.6 % (11.5-14.5); RDW Standard Deviation 64.2 fL (36.4-46.3); Red Blood Count 2.26 M/uL (4.70-6.10); White Blood Count 17.93 K/ul (4.8-10.8)
[2023-09-16 23:31] LABS: Albumin Globulin Ratio 1.4 (0.9-2); Albumin Level 3.9 gm/dl (3.4-5.0); BUN Creatinine Ratio 37.1 (10-20); Bilirubin,Total 0.4 mg/dl (0.2-1.0); Calcium 9.5 mg/dl (8.6-10.3); Creatinine Clr Calc Pharmacy 78.2 ml/min; Est GFR (African American) 57.8 ml/min; Est GFR (Non-African American) 49.8 ml/min; Globulin 2.8 gm/dl (2.5-4.0); Magnesium 1.7 mg/dl (1.7-2.4); Potassium 3.9 mmol/L (3.5-5.1); Total Protein 6.7 gm/dl (6.0-8.3)
[2023-09-16 23:34] LABS: Polychromasia 1+
[2023-09-16 23:37] LABS: Troponin I High Sensitivity 16.2 pg/ml (0-20)
[2023-09-16] MEDS ORDERED: SODIUM CHLORIDE 0.9% 250 ML IV PRN (23:45)
[2023-09-16 23:46] LABS: Thyroid Stimulating Hormone 1.835 uIu/ml (0.300-4.500)
[2023-09-16 23:51] LABS: INR 1.8 (0.9-1.1); Prothrombin Time 18.7 Seconds (9.0-12.0)
--- NOTE | 2023-09-16 23:51 | CT Scan Report ---
Exam(s): CT HEAD Without Contrast EXAM: CT Head Without Intravenous Contrast CLINICAL HISTORY: Reason for exam: weakness, vomiting, coumadin. TECHNIQUE: Axial computed tomography images of the head/brain without intravenous contrast. Automated exposure control was utilized for the study. A dose lowering technique was utilized adhering to the principles of ALARA. COMPARISON: No relevant prior studies available. FINDINGS: No acute intracranial hemorrhage. No midline shift or mass effect. The territorial saravia-white matter differentiation is maintained throughout. The ventricles and sulci are commensurate with age. The visualized orbits appear grossly unremarkable. The calvarium is intact. The visualized paranasal sinuses and mastoid air cells are grossly clear. IMPRESSION: No acute intracranial hemorrhage, midline shift, or mass effect. Electronically signed by: Kevin Estevez MD 09/16/23 23:50 PM
[2023-09-17 00:26] LABS: Appearance Urine Clear (Clear); Bacteria Urine Automated None Seen (None Seen); Bilirubin Urine Negative (Negative); Blood Urine Negative (Negative); Color Urine Yellow; Epithelial Cell Urine Auto 0-2 /hpf (0-2); Glucose Urine UA Negative (Negative); Granular Casts Urine Present /lpf (None Prsent); Ketones Urine Trace (Negative); Leukocyte Esterase Urine 1+ (Negative); Nitrite Urine Negative (Negative); Protein Urine 1+ (Negative); RBC Urine Automated 0-2 /hpf (0-2); Specific Gravity Urine 1.017 (1.000-1.030); Urobilinogen Urine Negative (Negative); WBC Urine Automated 0-5 /hpf (0-5)
[2023-09-17] MEDS: SODIUM CHLORIDE 0.9% 500 ML IV ONE (00:32)
[2023-09-17] MEDS: PHYTONADIONE 10 MG in DEXTROSE 5% 50 ML IV ONE (00:34)
[2023-09-17] MEDS: PANTOprazole 80 MG in DEXTROSE 5% 100 ML IV ONE (00:35)
[2023-09-17] MEDS: PANTOPRAZOLE BOLUS/DRIP IV STA (00:40)
[2023-09-17] MEDS: SODIUM CHLORIDE 0.9% 1,000 ML IV SCH ×2 (00:48→05:44)
[2023-09-17] MEDS: PANTOprazole 40 MG in DEXTROSE 5% MINI-B 100 ML IV SCH ×2 (00:48→05:45)
[2023-09-17] MEDS: PIPERACILLIN/TAZOBACTAM 4.5 GM/100 ML BAG IV ONE (00:57)
--- NOTE | 2023-09-17 01:31 | Emergency Department Note ---
Impression & Plan Acute lower gastrointestinal bleeding, Dependent edema, Leukocytosis, ABLA (acute blood loss anemia) ED Provider Note CHIEF COMPLAINT: Weakness, shortness of breath with exertion HISTORY OF PRESENT ILLNESS: This 58-year-old male patient with past medical history of morbid obesity peripheral arterial disease type 2 diabetes, diabetic neuropathy, atrial fibrillation on chronic warfarin, remote history of necrotizing fasciitis, hyperlipidemia and hypertension presents emergency department with complaints of generalized weakness, shortness of breath with any exertion, fatigue. Patient mentions he did vomit several times, but is feeling much better from that standpoint currently. He admits to having Ozempic added to his recent medication regimen. He denies any chest pain, follow-up REVIEW OF SYSTEMS: A review of systems was performed with positives and pertinent negatives listed in the history of present illness. 10 systems were reviewed and are otherwise negative. ALLERGIES: see below MEDICATIONS: see below PMH: see below SOCIAL HISTORY: see below DDx: Acute coronary syndrome, congestive heart failure, anemia, infectious etiology, GI bleed, UTI, among others. PHYSICAL EXAM: Vital signs reviewed. General: Well-appearing 58-year-old male, in no significant distress. HEENT: No scleral icterus, pale conjunctiva. PERRLA, neck supple. Moist mucous membranes atraumatic. Cardiovascular: Regular rate and rhythm, no extra sounds. Pulmonary: Clear to auscultation bilaterally, normal work of breathing. Abdomen: Soft, nontender, nondistended, positive bowel sounds. Musculoskeletal: Atraumatic, 2-3+ peripheral edema in bilateral lower extremities. GI: Normal external rectal mucosa, melanotic stool present, guaiac positive Neurologic: Patient awake alert and oriented x 3, speech is clear Skin: Warm, dry, no rash EMERGENCY DEPARTMENT COURSE/MDM: This patient was evaluated and appeared to be in no significant distress. IV access was obtained and laboratory work was drawn. Patient was initially complaining of edema in the bilateral lower extremities and was given 40 mg of IV Lasix due to shortness of breath in addition. Patient was noted to be anemic at 7.2 on laboratory work. Patient was typed and crossed for PRBCs to hold. Stool guaiac is positive melanotic stool. Patient's WBC is noted to be 17. He was noted to have a prerenal state. He was then administered IV normal saline solution, 500 cc bolus and then a maintenance rate. He states he has had melanotic stool since his colonoscopy 2 months ago. He is also anticoagulated with warfarin and was given 10 mg of IV vitamin K. Given elevated WBC of uncertain etiology, IV Zosyn was administered. A Protonix bolus and drip was initiated. Patient was consented for blood transfusion although it is on hold at this time. Case was discussed with the hospitalist service, Dr. Hall who will evaluate the patient for admission and further management. MONITORING: An order for cardiac monitoring was placed and the patient is noted to be in a normal sinus rhythm at 92 beats per minute. RADIOLOGY: Chest x-ray to my interpretation reveals cardiomegaly without focal consolidation or failure. Head CT per radiology is negative for acute process. EKG: To my interpretation reveals a sinus rhythm at 92 bpm. Frequent PVCs, left axis deviation with a right bundle branch block. QTc is 504. Normal ST segments. DISPOSITION: Admission Past Med/Surg History Problem List (Updated 09/23/23 @ 07:56 by Barb Nava MD) ABLA (acute blood loss anemia) (Acute) Leukocytosis (Acute) Dependent edema (Acute) Acute lower gastrointestinal bleeding (Acute) Encounter for pre-operative examination Scrotal abscess Symptomatic anemia Bilateral leg pain (Acute) Hypoglycemia (Acute) Cellulitis (Acute) DVT prophylaxis Open wound of left thigh (Acute) Medical History Neuropathy Aortoiliac occlusive disease PVD (peripheral vascular disease) Diabetic neuropathy T2DM (type 2 diabetes mellitus) IDDM Morbid obesity HLD (hyperlipidemia) HTN (hypertension) Hx of necrotising fasciitis 01/26/23, hospitalized for 1 month (still living in [place] at the time), hx abscesses that he self drained, had one that was he unable to manage>became septic area [id number] Hx of basal cell carcinoma Hx of migraines Arthritis Depression no meds PVD (peripheral vascular disease) unable to ambulate more than 25 feet without requiring his wheelchair or rollator/walker; always uses w/c outside of home V tach hx of > last episode 10/2022 > took nitro Atrial fibrillation no pacer > dx Feb 2022 > follows with Dr. Jacobson History of COVID-2020 > not hospitalized>no residual symptoms Chronic obstructive pulmonary disease uses res inh approx 4x day Hx of deep venous thrombosis Feb 2022 > bilat legs > due to neuropathy/diabetes > Warfarin/plavix MEETA (obstructive sleep apnea) not on cpap or O2 Surgical History Hx of skin graft lt leg S/P excisional debridement x4, left leg due to necrotising fascitis Hx of basal cell carcinoma excision History of hip surgery as child, left hip History of tooth extraction History of tonsillectomy History of cardiac cath x several, no stents, last one June 2022 at [facility], no stents "chasing blood clots to make sure none had entered his heart" Hx of laminectomy L3-S1 Family History Other Cancer Diabetes Family history of blood clots Heart disease Social History Smoking Status: Current every day smoker Tobacco Type: Cigars Cigarettes Per Day: 2-3; Second Hand Exposure: No; Do You Dip or Chew Tobacco: No; Hx Alcohol Use: No Hx Substance Use: Yes Prescribed Medications: Marijuana Last Used Substance: Days (ago) Last Used Substance Other:: 03/21/23, daily Substance Use Type Other:: uses daily > not medical card Preferred Language: Romansh Communication Ability: Effective Visual Impairment: Limited Hearing Ability: Hard of Hearing Flavoring Maker Required: No Beliefs That Will Affect Care: None marital status: marital status details: but currently going through divorce Current Living Situation: Spouse Current Living Situation Comment: pt states he and his are in the process of current occupational status: unemployed How many Children do You have: 2 How many Children do You have Comment: son is involved with care and able to assist with care as needed (son lives 30 minutes from pt) Feels Safe at Home: Yes Diet: regular Diet Comment: tries to pay attention to what he eats regarding diabetes. during the past year weight has: increased > 10 lbs Assistive Devices: Walker Allergies Allergies Allergy/AdvReac Type Severity Reaction Status Date / Time metformin AdvReac Severe SEVERE Verified 09/17/23 13:28 DIARRHEA adhesive AdvReac Intermediate Blister Verified 09/17/23 13:28 Home Meds Home Medications Medication Instructions Recorded Confirmed atorvastatin 40 mg tablet 40 mg PO QAM 06/16/22 09/17/23 clopidogrel 75 mg tablet 75 mg PO QAM 06/16/22 09/17/23 insulin aspart U-100 100 unit/mL 12 - 15 unit subcut TIDWMEAL 06/16/22 09/17/23 (3 mL) subcutaneous pen insulin glargine 100 unit/mL (3 45 unit subcut QAM 06/16/22 09/17/23 mL) subcutaneous pen (Lantus Solostar U-100 Insulin) insulin glargine 100 unit/mL 17 unit subcut HS 06/16/22 09/17/23 subcutaneous solution (Lantus U-100 Insulin) lisinopril 40 mg tablet 40 mg PO QAM 06/16/22 09/17/23 metoprolol succinate 50 mg 50 mg PO QAM 06/16/22 09/17/23 tablet,extended release 24 hr warfarin 10 mg tablet 15 - 20 mg PO UD 06/16/22 09/17/23 albuterol sulfate 90 mcg/actuation 2 inh inhalation BID PRN Wheezing 11/05/22 09/17/23 aerosol inhaler nitroglycerin 0.4 mg sublingual 0.4 mg sublingual Q5M PRN Chest 03/22/23 09/17/23 tablet (Nitrostat) Pain pregabalin 75 mg capsule 75 mg PO [facility]HS 09/17/23 09/17/23 Previous Rx's Medication Instructions Recorded isosorbide mononitrate 30 mg 30 mg PO QAM #30 tabs 06/29/22 tablet,extended release 24 hr Results & Data (ED) Vital Signs Vital Signs - 24 hr 09/16/23 21:26 09/16/23 21:49 09/16/23 21:58 Temperature 36.6 C Temperature Source Temporal Artery Scan Pulse Rate 75 93 H 95 H Pulse Rate [Apical] Pulse Rate from SpO2 Sensor Pulse Rhythm [Apical] Pulse Strength [Apical] Respiratory Rate 17 18 Respiratory Effort / Characteristics Respiratory Depth Blood Pressure 121/71 120/66 Blood Pressure [Right Arm] Blood Pressure Mean 87 84 Blood Pressure Mean [Right Arm] Pulse Oximetry 94 Oxygen Delivery Method Room Air Sepsis Recent Fever Within 48 Hours No Sepsis New/Unexplained Change in Mental Status No Sepsis Action Taken by Nursing No Action Required 09/16/23 22:00 09/16/23 23:00 09/16/23 23:09 Temperature Temperature Source Pulse Rate 92 H 89 Pulse Rate [Apical] 89 Pulse Rate from SpO2 Sensor 84 Pulse Rhythm [Apical] Regular Pulse Strength [Apical] Normal Respiratory Rate 22 17 18 Respiratory Effort / Characteristics SOB on Exertion Respiratory Depth Normal Blood Pressure 133/65 134/63 Blood Pressure [Right Arm] 134/63 Blood Pressure Mean 87 86 Blood Pressure Mean [Right Arm] 86 Pulse Oximetry 97 95 98 Oxygen Delivery Method Room Air Room Air Room Air Sepsis Recent Fever Within 48 Hours Sepsis New/Unexplained Change in Mental Status Sepsis Action Taken by Nursing 09/17/23 01:06 Temperature Temperature Source Pulse Rate 84 Pulse Rate [Apical] Pulse Rate from SpO2 Sensor Pulse Rhythm [Apical] Pulse Strength [Apical] Respiratory Rate 14 Respiratory Effort / Characteristics Respiratory Depth Blood Pressure 144/77 H Blood Pressure [Right Arm] Blood Pressure Mean 99 Blood Pressure Mean [Right Arm] Pulse Oximetry 99 Oxygen Delivery Method Room Air Sepsis Recent Fever Within 48 Hours Sepsis New/Unexplained Change in Mental Status Sepsis Action Taken by Assisted Medications Current Medication List: was personally reviewed by me Laboratory Data Attestation: I reviewed the patient's lab results. 09/23/23 05:39 09/22/23 06:22 Lab Results 09/16/23 09/16/23 09/17/23 Range/Units 22:54 23:46 00:00 WBC 17.93 H (4.8-10.8) K/ul RBC 2.26 L (4.70-6.10) M/uL Hgb 7.2 L (14.0-18.0) g/dl Hct 22.7 L (42.0-52.0) % MCV 100.4 H (80.0-100.0) fL MCH 31.9 (25.0-34.0) pg MCHC 31.7 L (32.0-36.0) g/dL RDW Std Deviation 64.2 H (36.4-46.3) fL RDW Coeff of Mercedes 18.6 H (11.5-14.5) % Plt Count 320 (130-400) K/uL MPV 12.1 (9.4-12.4) fL Immature Gran % (Auto) 2.6 % Neut % (Auto) 77.6 % Lymph % (Auto) 11.7 % [place] % (Auto) 6.8 % Eos % (Auto) 0.7 % Baso % (Auto) 0.6 % Neut # (Auto) 13.91 H (1.40-6.50) K/uL Lymph # (Auto) 2.10 (1.20-3.40) K/uL [place] # (Auto) 1.22 H (0.11-0.59) K/uL Eos # (Auto) 0.12 (0.00-0.50) K/uL Baso # (Auto) 0.11 (0.00-0.20) K/uL Immature Gran # (Auto) 0.47 H (0.01-0.20) K/uL Absolute Nucleated RBC 0.17 H (0.00-0.12) K/uL Nucleated RBC % (auto) 0.9 % Polychromasia 1+ PT 18.7 H (9.0-12.0) Seconds INR 1.8 H (0.9-1.1) Sodium 135 L (136-145) mmol/L Potassium 3.9 (3.5-5.1) mmol/L Chloride 102 (98-107) mmol/L Carbon Dioxide 25 (21-32) mmol/L Anion Gap 8 (3-11) BUN 56 H (6-23) mg/dl Creatinine 1.51 H (0.6-1.4) mg/dl Est Cr Clr Drug Dosing 78.2 ml/min Est GFR ( Amer) 57.8 ml/min Est GFR (Non-Af Amer) 49.8 ml/min BUN/Creatinine Ratio 37.1 H (10-20) Glucose 108 H (70-99(Fasting)) mg/dl Lactate (0.4-2.0) mmol/L Calcium 9.5 (8.6-10.3) mg/dl Magnesium 1.7 (1.7-2.4) mg/dl Total Bilirubin 0.4 (0.2-1.0) mg/dl AST 17 (13-39) U/L ALT 15 (7-52) U/L Alkaline Phosphatase 79 (34-104) U/L Troponin I High Sens 16.2 (0-20) pg/ml Total Protein 6.7 (6.0-8.3) gm/dl Albumin 3.9 (3.4-5.0) gm/dl Globulin 2.8 (2.5-4.0) gm/dl Albumin/Globulin Ratio 1.4 (0.9-2) Procalcitonin 0.04 (0-0.5) ng/ml TSH 1.835 (0.300-4.500) uIu/ml Urine Color Yellow Urine Appearance Clear (Clear) Urine pH 5.0 (4.5-7.5) Ur Specific [place] 1.017 (1.000-1.030) Urine Protein 1+ H (Negative) Urine Glucose (UA) Negative (Negative) Urine Ketones Trace H (Negative) Urine Blood Negative (Negative) Urine Nitrite Negative (Negative) Urine Bilirubin Negative (Negative) Urine Urobilinogen Negative (Negative) Ur Leukocyte Esterase 1+ H (Negative) Urine WBC (Auto) 0-5 (0-5) /hpf Urine RBC (Auto) 0-2 (0-2) /hpf U Hyaline Cast (Auto) 11-20 H (0-2) /lpf U Epithel Cells (Auto) 0-2 (0-2) /hpf Urine Bacteria (Auto) None Seen (None Seen) Granular Casts Present A (None Prsent) /lpf Bld Cult ID Panel PCR (NotDetected) Blood Type Blood Type Recheck Antibody Screen Crossmatch 09/17/23 09/17/23 09/17/23 Range/Units 00:02 00:07 00:30 WBC (4.8-10.8) K/ul RBC (4.70-6.10) M/uL Hgb (14.0-18.0) g/dl Hct (42.0-52.0) % MCV (80.0-100.0) fL MCH (25.0-34.0) pg MCHC (32.0-36.0) g/dL RDW Std Deviation (36.4-46.3) fL RDW Coeff of Mercedes (11.5-14.5) % Plt Count (130-400) K/uL MPV (9.4-12.4) fL Immature Gran % (Auto) % Neut % (Auto) % Lymph % (Auto) % [place] % (Auto) % Eos % (Auto) % Baso % (Auto) % Neut # (Auto) (1.40-6.50) K/uL Lymph # (Auto) (1.20-3.40) K/uL [place] # (Auto) (0.11-0.59) K/uL Eos # (Auto) (0.00-0.50) K/uL Baso # (Auto) (0.00-0.20) K/uL Immature Gran # (Auto) (0.01-0.20) K/uL Absolute Nucleated RBC (0.00-0.12) K/uL Nucleated RBC % (auto) % Polychromasia PT (9.0-12.0) Seconds INR (0.9-1.1) Sodium (136-145) mmol/L Potassium (3.5-5.1) mmol/L Chloride (98-107) mmol/L Carbon Dioxide (21-32) mmol/L Anion Gap (3-11) BUN (6-23) mg/dl Creatinine (0.6-1.4) mg/dl Est Cr Clr Drug Dosing ml/min Est GFR ( Amer) ml/min Est GFR (Non-Af Amer) ml/min BUN/Creatinine Ratio (10-20) Glucose (70-99(Fasting)) mg/dl Lactate 1.2 (0.4-2.0) mmol/L Calcium (8.6-10.3) mg/dl Magnesium (1.7-2.4) mg/dl Total Bilirubin (0.2-1.0) mg/dl AST (13-39) U/L ALT (7-52) U/L Alkaline Phosphatase (34-104) U/L Troponin I High Sens (0-20) pg/ml Total Protein (6.0-8.3) gm/dl Albumin (3.4-5.0) gm/dl Globulin (2.5-4.0) gm/dl Albumin/Globulin Ratio (0.9-2) Procalcitonin (0-0.5) ng/ml TSH (0.300-4.500) uIu/ml Urine Color Urine Appearance (Clear) Urine pH (4.5-7.5) Ur Specific [place] (1.000-1.030) Urine Protein (Negative) Urine Glucose (UA) (Negative) Urine Ketones (Negative) Urine Blood (Negative) Urine Nitrite (Negative) Urine Bilirubin (Negative) Urine Urobilinogen (Negative) Ur Leukocyte Esterase (Negative) Urine WBC (Auto) (0-5) /hpf Urine RBC (Auto) (0-2) /hpf U Hyaline Cast (Auto) (0-2) /lpf U Epithel Cells (Auto) (0-2) /hpf Urine Bacteria (Auto) (None Seen) Granular Casts (None Prsent) /lpf Bld Cult ID Panel PCR PCR Panel Negative (NotDetected) Blood Type A Positive Blood Type Recheck A Positive Antibody Screen NEGATIVE Crossmatch See Detail Administered Medications Atorvastatin Calcium (Atorvastatin 40 Mg Tab) 40 mg PO [facility] Stop: 10/17/23 08:59 Last Admin: 09/22/23 07:49 Dose: 40 mg Documented By: Admin: 09/21/23 07:57 Dose: 40 mg Documented By: Admin: 09/20/23 08:09 Dose: 40 mg Documented By: Admin: 09/19/23 08:19 Dose: 40 mg Documented By: Admin: 09/18/23 08:47 Dose: 40 mg Documented By: Admin: 09/17/23 08:07 Dose: 40 mg Documented By: ABELARDO Clopidogrel Bisulfate (Clopidogrel Bisulfate 75 Mg Tab) 75 mg PO [facility] Stop: 10/22/23 08:59 Last Admin: 09/22/23 07:52 Dose: 75 mg Documented By: REYES Cyanocobalamin (Cyanocobalamin (B-12) 500 Mcg Tablet) 500 mcg PO [facility] Stop: 10/19/23 08:59 Last Admin: 09/22/23 07:49 Dose: 500 mcg Documented By: Admin: 09/21/23 07:57 Dose: 500 mcg Documented By: Admin: 09/20/23 08:06 Dose: 500 mcg Documented By: Admin: 09/19/23 08:19 Dose: 500 mcg Documented By: IONA Ferrous Sulfate (Ferrous Sulfate 325 Mg Tab) 325 mg PO [facility] Stop: 10/19/23 08:59 Last Admin: 09/22/23 07:51 Dose: 325 mg Documented By: Admin: 09/21/23 07:56 Dose: 325 mg Documented By: Admin: 09/20/23 08:06 Dose: 325 mg Documented By: Admin: 09/19/23 08:18 Dose: 325 mg Documented By: IONA Folic Acid (Folic Acid 1 Mg Tab) 1 mg PO [facility] Stop: 10/19/23 08:59 Last Admin: 09/22/23 07:50 Dose: 1 mg Documented By: Admin: 09/21/23 07:57 Dose: 1 mg Documented By: Admin: 09/20/23 08:08 Dose: 1 mg Documented By: Admin: 09/19/23 08:19 Dose: 1 mg Documented By: IONA Hydromorphone HCl (Hydromorphone Inj 1 Mg/Ml Syringe) 1 mg IV Q6H PRN PRN Reason: Pain Stop: 10/01/23 08:33 Last Admin: 09/19/23 18:20 Dose: 1 mg Documented By: Admin: 09/19/23 04:09 Dose: 1 mg Documented By: Admin: 09/17/23 08:52 Dose: 1 mg Documented By: ABELARDO Piperacillin Sod/Tazobactam (Sod 4.5 gm/ Dextrose) 100 mls @ 25 mls/hr IV Q8H PATSY; Protocol Stop: 09/26/23 17:59 Last Infusion: 09/23/23 06:53 Dose: Infused Documented By: Admin: 09/23/23 02:05 Dose: 25 mls/hr Documented By: Infusion: 09/22/23 21:55 Dose: Infused Documented By: Admin: 09/22/23 17:38 Dose: 25 mls/hr Documented By: Infusion: 09/22/23 14:15 Dose: Infused Documented By: Admin: 09/22/23 09:55 Dose: 25 mls/hr Documented By: Infusion: 09/22/23 06:04 Dose: Infused Documented By: Admin: 09/22/23 02:04 Dose: 25 mls/hr Documented By: Infusion: 09/21/23 21:48 Dose: Infused Documented By: Admin: 09/21/23 17:31 Dose: 25 mls/hr Documented By: Infusion: 09/21/23 14:30 Dose: Infused Documented By: Admin: 09/21/23 10:30 Dose: 25 mls/hr Documented By: Admin: 09/21/23 02:49 Dose: Not Given Documented By: Infusion: 09/20/23 22:49 Dose: Infused Documented By: Admin: 09/20/23 18:33 Dose: 25 mls/hr Documented By: Infusion: 09/20/23 13:35 Dose: Infused Documented By: Admin: 09/20/23 09:23 Dose: 25 mls/hr Documented By: Infusion: 09/20/23 06:10 Dose: Infused Documented By: Admin: 09/20/23 01:43 Dose: 25 mls/hr Documented By: Infusion: 09/19/23 22:21 Dose: Infused Documented By: Admin: 09/19/23 18:00 Dose: 25 mls/hr Documented By: IONA Vancomycin HCl 1,500 mg/ (Sodium Chloride) 530 mls @ 200 mls/hr IV Q12H [facility] Stop: 09/26/23 21:59 Last Infusion: 09/23/23 00:58 Dose: Infused Documented By: Admin: 09/22/23 21:52 Dose: 200 mls/hr Documented By: Infusion: 09/22/23 12:34 Dose: Infused Documented By: Admin: 09/22/23 09:55 Dose: 200 mls/hr Documented By: Infusion: 09/22/23 00:56 Dose: Infused Documented By: Admin: 09/21/23 21:49 Dose: 200 mls/hr Documented By: Infusion: 09/21/23 13:15 Dose: Infused Documented By: Admin: 09/21/23 10:31 Dose: 200 mls/hr Documented By: Admin: 09/21/23 01:35 Dose: Not Given Documented By: Infusion: 09/20/23 15:18 Dose: Infused Documented By: Admin: 09/20/23 12:17 Dose: 200 mls/hr Documented By: Infusion: 09/20/23 01:21 Dose: Infused Documented By: Admin: 09/19/23 22:35 Dose: 200 mls/hr Documented By: JULISSA Insulin Aspart (Insulin Aspart Per Unit Charge) 0 units SC ACHS [facility] Stop: 10/18/23 17:07 Last Admin: 09/22/23 21:55 Dose: Not Given Documented By: Admin: 09/22/23 17:39 Dose: 10 units Documented By: BRIGHT Co-signed By: NIRMALA Admin: 09/22/23 12:37 Dose: 10 units Documented By: REYES Co-signed By: NIRMALA Admin: 09/22/23 08:00 Dose: Not Given Documented By: Admin: 09/21/23 21:15 Dose: Not Given Documented By: DANITA Co-signed By: WILLARD Admin: 09/21/23 17:38 Dose: Not Given Documented By: Admin: 09/21/23 12:06 Dose: 6 units Documented By: ALONA Co-signed By: JOSEPH Admin: 09/21/23 07:56 Dose: Not Given Documented By: Admin: 09/20/23 20:47 Dose: Not Given Documented By: Admin: 09/20/23 16:42 Dose: Not Given Documented By: LEONOR Co-signed By: Admin: 09/20/23 12:30 Dose: 6 units Documented By: TANI Co-signed By: Admin: 09/20/23 07:56 Dose: Not Given Documented By: Admin: 09/19/23 20:57 Dose: Not Given Documented By: Admin: 09/19/23 17:15 Dose: Not Given Documented By: Admin: 09/19/23 11:39 Dose: Not Given Documented By: Admin: 09/19/23 08:35 Dose: Not Given Documented By: Admin: 09/18/23 21:06 Dose: Not Given Documented By: Admin: 09/18/23 17:56 Dose: Not Given Documented By: DMB Isosorbide Mononitrate (Isosorbide [place] Extended Rel 30 Mg Tabcr) 30 mg PO QAM [facility] Stop: 10/17/23 08:59 Last Admin: 09/22/23 07:50 Dose: 30 mg Documented By: Admin: 09/21/23 07:56 Dose: 30 mg Documented By: JQamar Admin: 09/20/23 08:06 Dose: 30 mg Documented By: Admin: 09/19/23 08:19 Dose: 30 mg Documented By: Admin: 09/18/23 08:47 Dose: 30 mg Documented By: Admin: 09/17/23 08:07 Dose: 30 mg Documented By: ANAYELIL Lactobacillus Acidophilus (Advanced Probiotic 625 Mg Capsule) 1,250 mg PO DAILY [facility] Stop: 10/21/23 08:59 Last Admin: 09/22/23 07:49 Dose: 1,250 mg Documented By: Admin: 09/21/23 11:20 Dose: 1,250 mg Documented By: ALONA [facility]inop[facility] ([facility] 40 Mg Tab) [facility] [place]: 10/18/23 08:59 Last Admin: 09/22/23 07:50 Dose: 40 mg Documented By: Admin: 09/21/23 07:57 Dose: 40 mg Documented By: Admin: 09/20/23 08:09 Dose: 40 mg Documented By: Admin: 09/19/23 08:18 Dose: 40 mg Documented By: Admin: 09/18/23 08:47 Dose: 40 mg Documented By: KAREN Magnesium Oxide (Magnesium Oxide 400 Mg Tab) 400 mg PO BID [facility] Stop: 09/24/23 09:01 Last Admin: 09/22/23 20:34 Dose: 400 mg Documented By: Admin: 09/22/23 07:49 Dose: 400 mg Documented By: Admin: 09/21/23 21:26 Dose: 400 mg Documented By: DANITA Metoprolol Succinate (Metoprolol Succ 50mg Ext Rel Tab) 50 mg PO [facility] Stop: 10/17/23 08:59 Last Admin: 09/22/23 07:52 Dose: 50 mg Documented By: Admin: 09/21/23 07:57 Dose: 50 mg Documented By: Admin: 09/20/23 08:08 Dose: 50 mg Documented By: Admin: 09/19/23 08:19 Dose: 50 mg Documented By: Admin: 09/18/23 08:48 Dose: 50 mg Documented By: Admin: 09/17/23 08:07 Dose: 50 mg Documented By: ABELARDO Miscellaneous (Order Awaiting Action: Ozempic) 1 each N/A QS [facility] Stop: 10/20/23 15:59 Last Admin: 09/20/23 16:42 Dose: Not Given Documented By: LEONOR Oxycodone HCl (Oxycodone Hcl Ir 5 Mg Tab (Immediate Release)) 5 mg PO Q4H PRN PRN Reason: Moderate Pain (Scale 4, 5, 6) Stop: 10/01/23 08:33 Last Admin: 09/20/23 00:27 Dose: 5 mg Documented By: Admin: 09/19/23 20:59 Dose: 5 mg Documented By: Admin: 09/17/23 16:55 Dose: 5 mg Documented By: ABELARDO Pantoprazole Sodium (Pantoprazole 40 Mg Tab) 40 mg PO BID [facility] Stop: 10/19/23 20:59 Last Admin: 09/22/23 20:34 Dose: 40 mg Documented By: Admin: 09/22/23 07:48 Dose: 40 mg Documented By: Admin: 09/21/23 21:26 Dose: 40 mg Documented By: Admin: 09/21/23 07:56 Dose: 40 mg Documented By: Admin: 09/20/23 20:48 Dose: 40 mg Documented By: Admin: 09/20/23 09:22 Dose: 40 mg Documented By: Admin: 09/19/23 20:57 Dose: 40 mg Documented By: EMERITA Pregabalin (Pregabalin 75 Mg Cap) 75 mg PO [facility] Stop: 10/17/23 08:59 Last Admin: 09/22/23 20:34 Dose: 75 mg Documented By: Admin: 09/22/23 08:00 Dose: 75 mg Documented By: Admin: 09/21/23 21:25 Dose: 75 mg Documented By: Admin: 09/21/23 07:56 Dose: 75 mg Documented By: Admin: 09/20/23 20:50 Dose: 75 mg Documented By: Admin: 09/20/23 08:11 Dose: 75 mg Documented By: Admin: 09/19/23 20:57 Dose: 75 mg Documented By: Admin: 09/19/23 08:21 Dose: 75 mg Documented By: Admin: 09/18/23 21:11 Dose: 75 mg Documented By: Admin: 09/18/23 08:53 Dose: 75 mg Documented By: Admin: 09/17/23 20:55 Dose: 75 mg Documented By: Admin: 09/17/23 08:11 Dose: 75 mg Documented By: ABELARDO Senna/Docusate Sodium (Docusate Sodium/Senna 50/8.6mg Tab) 1 tab PO QAM [facility] Stop: 10/19/23 17:44 Last Admin: 09/22/23 08:00 Dose: 1 tab Documented By: Admin: 09/21/23 10:30 Dose: 1 tab Documented By: Admin: 09/20/23 08:09 Dose: Not Given Documented By: Admin: 09/19/23 18:24 Dose: 1 tab Documented By: CAM Discontinued Medications Acetaminophen (Acetaminophen 325 Mg Tab) 650 mg PO NOW STA Stop: 09/17/23 04:26 Last Admin: 09/17/23 04:54 Dose: 650 mg Documented By: TOREY Acetaminophen (Acetaminophen 325 Mg Tab) 650 mg PO NOW STA Stop: 09/18/23 06:21 Last Admin: 09/18/23 08:42 Dose: 650 mg Documented By: KAREN Albuterol (Albut/Ipratrop 3mg/0.5mg Neb 3 Ml Vial) 3 ml NEB NOW ONE; Protocol Stop: 09/17/23 12:01 Last Admin: 09/17/23 12:21 Dose: 3 ml Documented By: CORRIE Albuterol (Albut/Ipratrop 3mg/0.5mg Neb 3 Ml Vial) 3 ml NEB NOW STA; Protocol Stop: 09/19/23 15:13 Last Admin: 09/19/23 15:21 Dose: 3 ml Documented By: STEPHANIA Benzocaine/Butamben/Tetracaine HCl (Benzocaine/Tetracain/Butam 50 Appln/5 Gm Can) Confirm Administered Dose 50 appln EXT .STK-MED ONE Stop: 09/17/23 13:19 Last Admin: 09/17/23 14:31 Dose: Not Given Documented By: ABELARDO Fentanyl Citrate (Fentanyl Citrate Pf 100 Mcg/2 Ml Vial) 25 mcg IV Q5M PRN PRN Reason: PACU Use Only-Pain Stop: 09/19/23 23:30 Last Admin: 09/19/23 17:27 Dose: 25 mcg Documented By: Admin: 09/19/23 17:22 Dose: 25 mcg Documented By: RICKY Furosemide (Furosemide 40 Mg/4 Ml Vial) 40 mg IV ONE ONE Stop: 09/16/23 22:34 Last Admin: 09/16/23 23:04 Dose: 40 mg Documented By: TOREY Furosemide (Furosemide Inj 20 Mg/2 Ml Vial) 20 mg IV ONE ONE Stop: 09/17/23 08:01 Last Admin: 09/17/23 08:11 Dose: 20 mg Documented By: ABELARDO Furosemide (Furosemide Inj 20 Mg/2 Ml Vial) 20 mg IV ONE ONE Stop: 09/18/23 10:01 Last Admin: 09/18/23 10:38 Dose: 20 mg Documented By: KAREN Sodium Chloride (Nss) 500 mls @ 999 mls/hr IV .Q31M ONE Stop: 09/17/23 00:26 Last Infusion: 09/17/23 01:07 Dose: Infused Documented By: [facility] Admin: 09/17/23 00:32 Dose: 999 mls/hr Documented By: Ed Sodium Chloride (Nss) 1,000 mls @ 150 mls/hr IV .Q6H40M [facility] Stop: 10/16/23 23:44 Last Infusion: 09/17/23 05:59 Dose: Infused Documented By: Admin: 09/17/23 00:48 Dose: 150 mls/hr Documented By: Ed Piperacillin Sod/Tazobactam Sod (Zosyn) 4.5 gm in 100 mls @ 200 mls/hr IV NOW ONE Stop: 09/17/23 00:27 Last Infusion: 09/17/23 01:47 Dose: Infused Documented By: [facility] Admin: 09/17/23 00:57 Dose: 200 mls/hr Documented By: Ed Phytonadione 10 mg/ Dextrose 51 mls @ 102 mls/hr IV ONE ONE Stop: 09/17/23 00:27 Last Infusion: 09/17/23 01:06 Dose: Infused Documented By: [facility] Admin: 09/17/23 00:34 Dose: 102 mls/hr Documented By: [facility] Pantoprazole Sodium 40 mg/ (Dextrose) 100 mls @ 20 mls/hr IV Q5H [facility] Stop: 10/17/23 00:14 Last Infusion: 09/17/23 06:44 Dose: Infused Documented By: Admin: 09/17/23 05:44 Dose: 8 mg/hr, 20 mls/hr Documented By: Infusion: 09/17/23 05:44 Dose: Infused Documented By: Admin: 09/17/23 00:48 Dose: 8 mg/hr, 20 mls/hr Documented By: TOREY Pantoprazole Sodium 80 mg/ (Dextrose) 120 mls @ 480 mls/hr IV NOW ONE Stop: 09/17/23 00:13 Last Infusion: 09/17/23 00:56 Dose: Infused Documented By: Admin: 09/17/23 00:35 Dose: 480 mls/hr Documented By: TOREY Magnesium Sulfate/Dextrose (Magnesium Sulfate / D5w) 1 gm in 100 mls @ 50 mls/hr IV ONE STA Stop: 09/17/23 06:39 Last Infusion: 09/17/23 07:43 Dose: Infused Documented By: Admin: 09/17/23 05:43 Dose: 50 mls/hr Documented By: JOHN Sodium Chloride (Nss) 1,000 mls @ 100 mls/hr IV .Q10H PATSY Stop: 10/17/23 05:20 Last Infusion: 09/18/23 09:01 Dose: Infused Documented By: Admin: 09/18/23 05:36 Dose: 100 mls/hr Documented By: Infusion: 09/18/23 02:28 Dose: Infused Documented By: Admin: 09/18/23 01:13 Dose: Not Given Documented By: Admin: 09/17/23 16:28 Dose: 100 mls/hr Documented By: Infusion: 09/17/23 15:44 Dose: Infused Documented By: Admin: 09/17/23 05:44 Dose: 100 mls/hr Documented By: JOHN Pantoprazole Sodium 40 mg/ (Dextrose) 100 mls @ 20 mls/hr IV Q5H [facility] Stop: 10/17/23 05:20 Last Admin: 09/19/23 20:26 Dose: Not Given Documented By: Infusion: 09/19/23 20:24 Dose: Infused Documented By: Admin: 09/19/23 12:13 Dose: 20 mg/hr, 50 mls/hr Documented By: Infusion: 09/19/23 12:01 Dose: Infused Documented By: Admin: 09/19/23 08:17 Dose: 20 mg/hr, 50 mls/hr Documented By: Infusion: 09/19/23 05:30 Dose: Infused Documented By: Admin: 09/19/23 03:23 Dose: 20 mg/hr, 50 mls/hr Documented By: Admin: 09/18/23 22:49 Dose: Not Given Documented By: Admin: 09/18/23 22:48 Dose: Not Given Documented By: Infusion: 09/18/23 22:48 Dose: Infused Documented By: Admin: 09/18/23 16:29 Dose: 8 mg/hr, 20 mls/hr Documented By: Infusion: 09/18/23 10:49 Dose: Infused Documented By: Admin: 09/18/23 05:49 Dose: 8 mg/hr, 20 mls/hr Documented By: Infusion: 09/18/23 05:49 Dose: Infused Documented By: Admin: 09/18/23 01:33 Dose: 8 mg/hr, 20 mls/hr Documented By: Infusion: 09/18/23 01:12 Dose: Infused Documented By: Admin: 09/17/23 20:28 Dose: 8 mg/hr, 20 mls/hr Documented By: Infusion: 09/17/23 20:28 Dose: Infused Documented By: Admin: 09/17/23 16:28 Dose: 8 mg/hr, 20 mls/hr Documented By: Infusion: 09/17/23 16:08 Dose: Infused Documented By: Admin: 09/17/23 11:08 Dose: 8 mg/hr, 20 mls/hr Documented By: Infusion: 09/17/23 11:08 Dose: Infused Documented By: Admin: 09/17/23 06:44 Dose: 8 mg/hr, 20 mls/hr Documented By: CP Piperacillin Sod/Tazobactam (Sod 4.5 gm/ Dextrose) 100 mls @ 25 mls/hr IV Q8H [facility]; Protocol Stop: 09/19/23 05:59 Last Infusion: 09/19/23 01:15 Dose: Infused Documented By: Admin: 09/18/23 21:11 Dose: 25 mls/hr Documented By: Infusion: 09/18/23 17:57 Dose: Infused Documented By: Admin: 09/18/23 13:49 Dose: 25 mls/hr Documented By: Infusion: 09/18/23 10:16 Dose: Infused Documented By: Admin: 09/18/23 05:45 Dose: 25 mls/hr Documented By: Infusion: 09/18/23 01:06 Dose: Infused Documented By: Admin: 09/17/23 20:57 Dose: 25 mls/hr Documented By: Infusion: 09/17/23 18:30 Dose: Infused Documented By: Admin: 09/17/23 14:30 Dose: 25 mls/hr Documented By: Infusion: 09/17/23 11:38 Dose: Infused Documented By: Admin: 09/17/23 07:38 Dose: 25 mls/hr Documented By: ABELARDO Dextrose/Sodium Chloride (D5w And 1/2nss) 1,000 mls @ 60 mls/hr IV .[id number] PATSY Stop: 09/19/23 17:49 Last Infusion: 09/19/23 20:24 Dose: Infused Documented By: Admin: 09/19/23 03:22 Dose: 60 mls/hr Documented By: Infusion: 09/19/23 01:30 Dose: Infused Documented By: Admin: 09/18/23 08:45 Dose: 60 mls/hr Documented By: KAREN Magnesium Sulfate/Dextrose (Magnesium Sulfate / D5w) 1 gm in 100 mls @ 50 mls/hr IV ONE ONE Stop: 09/19/23 08:34 Last Infusion: 09/19/23 20:25 Dose: Infused Documented By: Admin: 09/19/23 06:44 Dose: 50 mls/hr Documented By: MAYDA Piperacillin Sod/Tazobactam (Sod 4.5 gm/ Dextrose) 100 mls @ 200 mls/hr IV NOW ONE; Protocol Stop: 09/19/23 11:59 Last Infusion: 09/19/23 20:25 Dose: Infused Documented By: Admin: 09/19/23 11:33 Dose: 200 mls/hr Documented By: IONA Vancomycin HCl 2,750 mg/ (Sodium Chloride) 555 mls @ 180 mls/hr IV ONE ONE Stop: 09/19/23 15:04 Last Infusion: 09/19/23 20:25 Dose: Infused Documented By: Admin: 09/19/23 12:05 Dose: 180 mls/hr Documented By: IONA Insulin Aspart (Insulin Aspart Per Unit Charge) 0 units SC Q6 PATSY Stop: 10/17/23 05:59 Last Admin: 09/17/23 12:10 Dose: Not Given Documented By: Admin: 09/17/23 06:07 Dose: Not Given Documented By: JOHN Insulin Aspart (Insulin Aspart Per Unit Charge) 0 units SC ACHS PATSY Stop: 10/17/23 05:59 Last Admin: 09/18/23 08:43 Dose: Not Given Documented By: Admin: 09/17/23 20:47 Dose: Not Given Documented By: Admin: 09/17/23 16:37 Dose: 6 units Documented By: ABELARDO Co-signed By: ROBERT Insulin Aspart (Insulin Aspart Per Unit Charge) 0 units SC Q6 PATSY Stop: 10/18/23 11:59 Last Admin: 09/18/23 13:01 Dose: Not Given Documented By: KAREN Insulin Glargine (Lantus Per Unit Charge) 20 units SQ ONE ONE Stop: 09/17/23 09:01 Last Admin: 09/17/23 08:10 Dose: 10 units Documented By: ABELARDO Co-signed By: AMA Insulin Glargine (Lantus Per Unit Charge) 0 units SQ BID PATSY; Protocol Stop: 10/17/23 20:59 Last Admin: 09/20/23 08:31 Dose: Not Given Documented By: Admin: 09/19/23 08:36 Dose: Not Given Documented By: Admin: 09/18/23 21:07 Dose: Not Given Documented By: Admin: 09/18/23 08:51 Dose: Not Given Documented By: Admin: 09/17/23 20:51 Dose: 10 units Documented By: JOHN Co-signed By: ALONA Insulin Glargine (Lantus Per Unit Charge) 5 units SQ NOW STA Stop: 09/19/23 21:14 Last Admin: 09/19/23 22:20 Dose: Not Given Documented By: JULISSA Insulin Glargine (Lantus Per Unit Charge) 0 units SQ BID PATSY; Protocol Stop: 10/20/23 08:59 Last Admin: 09/22/23 08:01 Dose: Not Given Documented By: Admin: 09/21/23 21:15 Dose: Not Given Documented By: Admin: 09/21/23 07:57 Dose: Not Given Documented By: Admin: 09/20/23 20:47 Dose: Not Given Documented By: Admin: 09/20/23 08:01 Dose: Not Given Documented By: TANI Ioversol (Optiray 320 125ml) 120 ml IV ONCE ONE Stop: 09/18/23 06:48 Last Admin: 09/18/23 06:47 Dose: 120 ml Documented By: JEFF Ketamine HCl (Ketamine Hcl 10mg/Ml Syr) Confirm Administered Dose 50 mg .ROUTE .STK-MED ONE Stop: 09/17/23 13:19 Last Admin: 09/17/23 14:31 Dose: Not Given Documented By: KJL Lidocaine HCl (Lidocaine 2% 2 Ml Vial/Amp(20mg/Ml)) Confirm Administered Dose 6 ml INFIL .STK-MED ONE Stop: 09/17/23 13:19 Last Admin: 09/17/23 14:31 Dose: Not Given Documented By: KJL Lidocaine HCl (Lidocaine 1% Local 20 Ml Vial) Confirm Administered Dose 1 ml .ROUTE .STK-MED ONE Stop: 09/19/23 15:51 Last Admin: 09/19/23 16:49 Dose: 8 ml Documented By: [id number] Pantoprazole Sodium (Pantoprazole Bolus/Drip) 1 each IV NOW STA Stop: 09/17/23 00:00 Last Admin: 09/17/23 00:40 Dose: Not Given Documented By: MLH Potassium Chloride (Potassium Chloride Crtab 20 Meq Tabcr) 40 meq PO NOW STA Stop: 09/19/23 06:36 Last Admin: 09/19/23 06:45 Dose: 40 meq Documented By: TLM Potassium Chloride (Potassium Chloride Crtab 20 Meq Tabcr) 20 meq PO ONE ONE Stop: 09/19/23 08:31 Last Admin: 09/19/23 08:37 Dose: Not Given Documented By: CAM Potassium Chloride (Potassium Chloride Crtab 20 Meq Tabcr) 40 meq PO NOW STA Stop: 09/19/23 07:40 Last Admin: 09/19/23 08:28 Dose: 40 meq Documented By: CAM Propofol (Propofol Iv Emulsion 10 Mg/Ml 20 Ml Vial) Confirm Administered Dose 200 mg IV .STK-MED ONE Stop: 09/17/23 13:19 Last Admin: 09/17/23 14:31 Dose: Not Given Documented By: KJL Sodium Hypochlorite (Dakin's Soln 0.5% Full Strength 473ml Btl) 1 appln EXT ONCE ONE; Protocol Stop: 09/19/23 15:51 Last Admin: 09/19/23 16:49 Dose: 1 appln Documented By: [id number] Imaging Data Radiologist's Impression: Head CT 09/16/23 22:04 Exam(s): CT HEAD Without Contrast EXAM: CT Head Without Intravenous Contrast CLINICAL HISTORY: Reason for exam: weakness, vomiting, coumadin. TECHNIQUE: Axial computed tomography images of the head/brain without intravenous contrast. Automated exposure control was utilized for the study. A dose lowering technique was utilized adhering to the principles of ALARA. COMPARISON: No relevant prior studies available. FINDINGS: No acute intracranial hemorrhage. No midline shift or mass effect. The territorial saravia-white matter differentiation is maintained throughout. The ventricles and sulci are commensurate with age. The visualized orbits appear grossly unremarkable. The calvarium is intact. The visualized paranasal sinuses and mastoid air cells are grossly clear. IMPRESSION: No acute intracranial hemorrhage, midline shift, or mass effect. Electronically signed by: Kevin Estevez MD 09/16/23 23:50 PM Discharge Plan Visit Data Chief Complaint: Illness Stated Complaint: TROUBLE WALKING,HANDS NUMB ED Provider: Barb Nava Discharge Problem: Acute lower gastrointestinal bleeding, Dependent edema, Leukocytosis, ABLA (acute blood loss anemia) Patient Disposition: Admitted As Inpatient Discharge Instructions Interventions: ED Discharge Assessment Last Done: 09/17/23 05:23 Discharge Problem: Leukocytosis Qualifiers: Leukocytosis type: unspecified Qualified Code(s): D72.829 - Elevated white blood cell count, unspecified
[2023-09-17] MEDS ORDERED: SODIUM CHLORIDE 0.9% 250 ML IV PRN (04:19)
--- NOTE | 2023-09-17 04:45 | History & Physical Report ---
Date of Service September 17, 2023 Assessment & Plan (1) Symptomatic anemia: Plan: 58-year-old male with past medical history significant type 2 diabetes, hyperlipidemia, diabetic polyneuropathy, obstructive sleep apnea nontolerant of the CPAP, mild intermittent asthma, peripheral vascular disease, paroxysmal supraventricular tachycardia, Mild CAD,hypertension, obesity, ongoing tobacco abuse presents with show shortness of breath on minimal exertion and found to have anemia of hemoglobin of 7.2 and Hemoccult positive in the ER. Patient states lately getting short of breath which progressively got worse that now walking few steps making him short of breath. has Mild cough. Today had episode of vomiting but no blood in the vomitus. Has some chest heaviness. Has dizziness. Vision is blurry. No headaches. No runny nose. No abdominal pain. Stools has been dark since his colonoscopy. Normal micturition. Currently hemodynamics are okay. symptomatic anemia hemoglobin 7.2 shortness of breath with minimal exertion dizziness chest heaviness Hemoccult positive INR 1.8 and received IV vitamin K in the ER on Protonix drip H&H. 6 hours transfuse 1 unit of PRBC close monitor GI consult Chest heaviness mostly from anemia will follow serial ce and echo if any concerns will consult cardiology history of sleep apnea nontolerant to CPAP history of mild CAD holding Plavix for GI bleed continue statin, Imdur and metoprolol succinate diabetes cut back on Lantus to 15 units twice daily, sliding scale glycemic pharmacy consult close monitor peripheral vascular disease in February 2022 was found to have iliac stenosis with toe ulceration, Vacular surgery: no intervention was recommended but advised to start an oral anticoagulant Seems since then on Coumadin today INR is 1.8 holding Coumadin for GI bleed follow INR hyperlipidemia on statin ANUEL creatinine 1.5 baseline around 0.9 will hold lisinopril getting fluids and PRBC follow repeat labs prolonged QTc avoid QT prolonging drugs follow repeat EKG. leukocytosis follow cultures on empiric Zosyn With 48 hours stop follow labs mild intermittent asthma continue home inhalers hypertension continue Imdur, metoprolol succinate holding lisinopril hydralazine as needed will monitor diabetic neuropathy and pregabalin DVT prophylaxis SCDs for now disposition telemetry full code History of Present Illness Chief Complaint: symptomatic anemia Primary Care Provider: Julio César Pulliam DO 58-year-old male with past medical history significant type 2 diabetes, hyperlipidemia, diabetic polyneuropathy, obstructive sleep apnea nontolerant of the CPAP, mild intermittent asthma, peripheral vascular disease, paroxysmal supraventricular tachycardia, Mild CAD,hypertension, obesity, ongoing tobacco abuse presents with show shortness of breath on minimal exertion and found to have anemia of hemoglobin of 7.2 and Hemoccult positive in the ER. Patient states lately getting short of breath which progressively got worse that now walking few steps making him short of breath. has Mild cough. Today had episode of vomiting but no blood in the vomitus. Has some chest heaviness. Has dizziness. Vision is blurry. No headaches. No runny nose. No abdominal pain. Stools has been dark since his colonoscopy. Normal micturition. Currently hemodynamics are okay. Past medical history. As mentioned above past surgical history. colonoscopy. Dislocated hip surgery. laminectomy from L3-S1 . Social history . Smokes 0 point0.2 packs a day for last 44 years. Alcohol rarely. drugs marijuana daily as per the medical center family history. Father Had esophageal cancer. Mother had cancer. Allergies Allergy/AdvReac Type Severity Reaction Status Date / Time metformin AdvReac Severe SEVERE Verified 03/28/23 08:38 DIARRHEA adhesive AdvReac Intermediate Blister Verified 03/28/23 08:38 Home Medications Medication Instructions Recorded Confirmed Type atorvastatin 40 mg tablet 40 mg PO [facility] 06/16/22 09/17/23 History clopidogrel 75 mg tablet 75 mg PO [facility] 06/16/22 09/17/23 History insulin aspart U-100 100 unit/mL 12 - 15 unit subcut TIDWMEAL 06/16/22 09/17/23 History (3 mL) subcutaneous pen insulin glargine 100 unit/mL (3 45 unit subcut [facility] 06/16/22 09/17/23 History mL) subcutaneous pen (Lantus Solostar U-100 Insulin) insulin glargine 100 unit/mL 17 unit subcut HS 06/16/22 09/17/23 History subcutaneous solution (Lantus U-100 Insulin) lisinopril 40 mg tablet 40 mg PO QAM 06/16/22 09/17/23 History metoprolol succinate 50 mg 50 mg PO QA 06/16/22 09/17/23 History tablet,extended release 24 hr warfarin 10 mg tablet 15 - 20 mg PO UD 06/16/22 09/17/23 History isosorbide mononitrate 30 mg 30 mg PO QAM #30 tabs 06/29/22 09/17/23 Rx tablet,extended release 24 hr albuterol sulfate 90 mcg/actuation 2 inh inhalation BID PRN Wheezing 11/05/22 09/17/23 History aerosol inhaler nitroglycerin 0.4 mg sublingual 0.4 mg sublingual Q5M PRN Chest 03/22/23 09/17/23 History tablet (Nitrostat) Pain pregabalin 75 mg capsule 75 mg PO AMHS 09/17/23 09/17/23 History Past Med/Surg History Problem List (Updated 09/17/23 @ 04:39 by Miguel Hall MD) Symptomatic anemia Encounter for pre-operative examination Neuropathy (Acute) Bilateral leg pain (Acute) Hypoglycemia (Acute) Cellulitis (Acute) Aortoiliac occlusive disease DVT prophylaxis PVD (peripheral vascular disease) (Acute) Open wound of left thigh (Acute) Diabetic neuropathy (Chronic) T2DM (type 2 diabetes mellitus) (Chronic) IDDM Morbid obesity HLD (hyperlipidemia) HTN (hypertension) (Chronic) Medical History Hx of necrotising fasciitis 01/26/23, hospitalized for 1 month (still living in [place] at the time), hx abscesses that he self drained, had one that was he unable to manage>became septic area [id number] Hx of basal cell carcinoma Hx of migraines Arthritis Depression no meds PVD (peripheral vascular disease) unable to ambulate more than 25 feet without requiring his wheelchair or rollator/walker; always uses w/c outside of home V tach hx of > last episode 10/2022 > took nitro Atrial fibrillation no pacer > dx Feb 2022 > follows with Dr. Jacobson History of COVID-2020 > not hospitalized>no residual symptoms Chronic obstructive pulmonary disease uses res inh approx 4x day Hx of deep venous thrombosis Feb 2022 > bilat legs > due to neuropathy/diabetes > Warfarin/plavix MEETA (obstructive sleep apnea) not on cpap or O2 Surgical History Hx of skin graft lt leg S/P excisional debridement x4, left leg due to necrotising fascitis Hx of basal cell carcinoma excision History of hip surgery as child, left hip History of tooth extraction History of tonsillectomy History of cardiac cath x several, no stents, last one June 2022 at [facility], no stents "chasing blood clots to make sure none had entered his heart" Hx of laminectomy L3-S1 Family History Other Cancer Diabetes Family history of blood clots Heart disease Social History Smoking Status: Current every day smoker Tobacco Type: Cigars Cigarettes Per Day: 2-3; Second Hand Exposure: No; Do You Dip or Chew Tobacco: No; Hx Alcohol Use: No Hx Substance Use: Yes Prescribed Medications: Marijuana Last Used Substance: Days (ago) Last Used Substance Other:: 03/21/23, daily Substance Use Type Other:: uses daily > not medical card Preferred Language: Turkmen Communication Ability: Effective Visual Impairment: Limited Hearing Ability: Hard of Hearing Nuclear Supervising Operator Required: No Beliefs That Will Affect Care: None marital status: marital status details: but currently going through divorce Current Living Situation: Spouse Current Living Situation Comment: pt states he and his are in the process of current occupational status: unemployed How many Children do You have: 2 How many Children do You have Comment: son is involved with care and able to assist with care as needed (son lives 30 minutes from pt) Feels Safe at Home: Yes Safety Concerns: Feels Safe At This Time Diet: regular Diet Comment: tries to pay attention to what he eats regarding diabetes. during the past year weight has: increased > 10 lbs Assistive Devices: Glasses and Walker Review of Systems Review of Systems: All systems reviewed & are unremarkable except as noted in HPI & below Physical Exam Physical Exam: General- Not in distress Head- atraumatic Eyes- PERRL. ENT- oropharynx clear Neck- supple, no JVD Lungs- clear to auscultation no wheezing or crackles. Heart- regular rate and rhythm; no murmur, no gallop. Abdomen- normal bowel sounds, soft, nontender, no distension. Extremities- mild pretibial edema present , no erythema seen. Neuro- alert, oriented ,PERRL, no facial palsy; no dysarthria; moves extremities. Results & Data Results & Data Vital Signs (Past 12 Hours) Vital Signs Temp Pulse Pulse Resp BP BP Pulse Ox 09/17/23 03:00 98 H 18 138/59 L 98 09/17/23 02:00 92 H 17 131/60 95 09/17/23 01:48 93 H 09/17/23 01:06 84 14 144/77 H 99 09/16/23 23:09 89 18 134/63 98 09/16/23 23:00 89 17 134/63 95 09/16/23 22:00 92 H 22 133/65 97 09/16/23 21:58 95 H 18 120/66 09/16/23 21:49 93 H 09/16/23 21:26 36.6 C 75 17 121/71 94 O2 Del Method 09/17/23 03:00 Room Air 09/17/23 02:00 Room Air 09/17/23 01:48 09/17/23 01:06 Room Air 09/16/23 23:09 Room Air 09/16/23 23:00 Room Air 09/16/23 22:00 Room Air 09/16/23 21:58 09/16/23 21:49 09/16/23 21:26 Room Air Diagnostic Findings Laboratory Results WBC 17.93 K/ul (4.8-10.8) H 09/16/23 22:54 RBC 2.26 M/uL (4.70-6.10) L 09/16/23 22:54 Hgb 7.2 g/dl (14.0-18.0) L 09/16/23 22:54 Hct 22.7 % (42.0-52.0) L 09/16/23 22:54 MCV 100.4 fL (80.0-100.0) H 09/16/23 22:54 MCH 31.9 pg (25.0-34.0) 09/16/23 22:54 MCHC 31.7 g/dL (32.0-36.0) L 09/16/23 22:54 RDW Std Deviation 64.2 fL (36.4-46.3) H 09/16/23 22:54 RDW Coeff of Mercedes 18.6 % (11.5-14.5) H 09/16/23 22:54 Plt Count 320 K/uL (130-400) 09/16/23 22:54 MPV 12.1 fL (9.4-12.4) 09/16/23 22:54 Immature Gran % (Auto) 2.6 % 09/16/23 22:54 Neut % (Auto) 77.6 % 09/16/23 22:54 Lymph % (Auto) 11.7 % 09/16/23 22:54 [place] % (Auto) 6.8 % 09/16/23 22:54 Eos % (Auto) 0.7 % 09/16/23 22:54 Baso % (Auto) 0.6 % 09/16/23 22:54 Neut # (Auto) 13.91 K/uL (1.40-6.50) H 09/16/23 22:54 Lymph # (Auto) 2.10 K/uL (1.20-3.40) 09/16/23 22:54 [place] # (Auto) 1.22 K/uL (0.11-0.59) H 09/16/23 22:54 Eos # (Auto) 0.12 K/uL (0.00-0.50) 09/16/23 22:54 Baso # (Auto) 0.11 K/uL (0.00-0.20) 09/16/23 22:54 Immature Gran # (Auto) 0.47 K/uL (0.01-0.20) H 09/16/23 22:54 Absolute Nucleated RBC 0.17 K/uL (0.00-0.12) H 09/16/23 22:54 Nucleated RBC % (auto) 0.9 % 09/16/23 22:54 Polychromasia 1+ 09/16/23 22:54 PT 18.7 Seconds (9.0-12.0) H 09/16/23 22:54 INR 1.8 (0.9-1.1) H 09/16/23 22:54 Sodium 135 mmol/L (136-145) L 09/16/23 22:54 Potassium 3.9 mmol/L (3.5-5.1) 09/16/23 22:54 Chloride 102 mmol/L (98-107) 09/16/23 22:54 Carbon Dioxide 25 mmol/L (21-32) 09/16/23 22:54 Anion Gap 8 (3-11) 09/16/23 22:54 BUN 56 mg/dl (6-23) H 09/16/23 22:54 Creatinine 1.51 mg/dl (0.6-1.4) H 09/16/23 22:54 Est Cr Clr Drug Dosing 78.2 ml/min 09/16/23 22:54 Est GFR ( Amer) 57.8 ml/min 09/16/23 22:54 Est GFR (Non-Af Amer) 49.8 ml/min 09/16/23 22:54 BUN/Creatinine Ratio 37.1 (10-20) H 09/16/23 22:54 Glucose 108 mg/dl (70-99(Fasting)) H 09/16/23 22:54 Lactate 1.2 mmol/L (0.4-2.0) 09/17/23 00:02 Calcium 9.5 mg/dl (8.6-10.3) 09/16/23 22:54 Magnesium 1.7 mg/dl (1.7-2.4) 09/16/23 22:54 Total Bilirubin 0.4 mg/dl (0.2-1.0) 09/16/23 22:54 AST 17 U/L (13-39) 09/16/23 22:54 ALT 15 U/L (7-52) 09/16/23 22:54 Alkaline Phosphatase 79 U/L (34-104) 09/16/23 22:54 Troponin I High Sens 16.2 pg/ml (0-20) 09/16/23 22:54 Total Protein 6.7 gm/dl (6.0-8.3) 09/16/23 22:54 Albumin 3.9 gm/dl (3.4-5.0) 09/16/23 22:54 Globulin 2.8 gm/dl (2.5-4.0) 09/16/23 22:54 Albumin/Globulin Ratio 1.4 (0.9-2) 09/16/23 22:54 Procalcitonin 0.04 ng/ml (0-0.5) 09/16/23 23:46 TSH 1.835 uIu/ml (0.300-4.500) 09/16/23 22:54 Urine Color Yellow 09/17/23 00:00 Urine Appearance Clear (Clear) 09/17/23 00:00 Urine pH 5.0 (4.5-7.5) 09/17/23 00:00 Ur Specific [place] 1.017 (1.000-1.030) 09/17/23 00:00 Urine Protein 1+ (Negative) H 09/17/23 00:00 Urine Glucose (UA) Negative (Negative) 09/17/23 00:00 Urine Ketones Trace (Negative) H 09/17/23 00:00 Urine Blood Negative (Negative) 09/17/23 00:00 Urine Nitrite Negative (Negative) 09/17/23 00:00 Urine Bilirubin Negative (Negative) 09/17/23 00:00 Urine Urobilinogen Negative (Negative) 09/17/23 00:00 Ur Leukocyte Esterase 1+ (Negative) H 09/17/23 00:00 Urine WBC (Auto) 0-5 /hpf (0-5) 09/17/23 00:00 Urine RBC (Auto) 0-2 /hpf (0-2) 09/17/23 00:00 U Hyaline Cast (Auto) 11-20 /lpf (0-2) H 09/17/23 00:00 U Epithel Cells (Auto) 0-2 /hpf (0-2) 09/17/23 00:00 Urine Bacteria (Auto) None Seen (None Seen) 09/17/23 00:00 Granular Casts Present /lpf (None Prsent) A 09/17/23 00:00 Blood Type A Positive 09/17/23 00:02 Blood Type Recheck A Positive 09/17/23 00:30 Antibody Screen NEGATIVE 09/17/23 00:02 Crossmatch See Detail 09/17/23 00:[address] 09/16/23 22:04 Exam(s): CT HEAD Without Contrast EXAM: CT Head Without Intravenous Contrast CLINICAL HISTORY: Reason for exam: weakness, vomiting, coumadin. TECHNIQUE: Axial computed tomography images of the head/brain without intravenous contrast. Automated exposure control was utilized for the study. A dose lowering technique was utilized adhering to the principles of ALARA. COMPARISON: No relevant prior studies available. FINDINGS: No acute intracranial hemorrhage. No midline shift or mass effect. The territorial saravia-white matter differentiation is maintained throughout. The ventricles and sulci are commensurate with age. The visualized orbits appear grossly unremarkable. The calvarium is intact. The visualized paranasal sinuses and mastoid air cells are grossly clear. IMPRESSION: No acute intracranial hemorrhage, midline shift, or mass effect. Electronically signed by: Kevin Estevez MD 09/16/23 23:50 PM ECG Additional Comments: ECG. Sinus rhythm with frequent PVCs at a rate of 92. Right bundle branch block. QTc 504 Code Status & VTE Plan VTE Prophylaxis Plan VTE Prophylaxis will be ordered: Yes
[2023-09-17] MEDS: ACETAMINOPHEN 325 MG TAB PO STA (04:54)
[2023-09-17] MEDS ORDERED: ALBUTEROL HFA 8 GM INHALER INH PRN (05:21)
[2023-09-17] MEDS ORDERED: GLUCOSE 10 TAB/TUBE PO PRN (05:21)
[2023-09-17] MEDS ORDERED: CARBOHYDRATES FOR HYPOGLYCEMIA PO PRN (05:21)
[2023-09-17] MEDS ORDERED: NITROGLYCERIN SL 0.4 MG/TAB TAB SL PRN ×2 (05:21)
[2023-09-17] MEDS ORDERED: GLUCOSE 40% GEL 15 GM TUBE PO PRN (05:21)
[2023-09-17] MEDS ORDERED: DEXTROSE 50% 50 ML SYRINGE IV PRN (05:21)
[2023-09-17] MEDS ORDERED: hydrALAZINE HCL 20 MG/ML VIAL IV PRN (05:21)
[2023-09-17] MEDS ORDERED: PHARMACY GLYCEMIC MGMT CONSULT PRN (05:21)
[2023-09-17] MEDS ORDERED: ACETAMINOPHEN 325 MG TAB PO PRN (05:21)
[2023-09-17] MEDS ORDERED: GLUCAGON FOR INJ 1 MG VIAL SQ PRN (05:21)
[2023-09-17] MEDS: MAGNESIUM SULFATE / D5W 1 GM/100 ML BAG IV STA (05:43)
[2023-09-17] MEDS: INSULIN ASPART PER UNIT CHARGE SC SCH ×2 (06:07→16:37)
--- NOTE | 2023-09-17 07:14 | XRay Report ---
SINGLE VIEW CHEST CLINICAL HISTORY: Generalized weakness. FINDINGS: An AP, portable, upright chest radiograph is compared to chest x-ray and chest CT dated 02/24/2022. The examination is mildly degraded by portable technique and patient rotation. The heart is enlarged. The pulmonary vasculature is noncongested. There is mild bibasilar atelectasis. No airspace consolidation or large pleural effusion is identified. No pneumothorax is seen. The bony thorax is g rossly intact. IMPRESSION: Cardiomegaly with no acute cardiopulmonary abnormality identified. ACT 112: Negative or not required by law. Electronically signed by: Victor Manuel Yin M.D. 09/17/2023 7:13 AM
[2023-09-17] MEDS: PIPERACILLIN/TAZOBACTAM 4.5 GM in DEXTROSE 5% MINI-B 100 ML IV SCH (07:38)
[2023-09-17] MEDS: ISOSORBIDE MONO EXTENDED REL 30 MG TABCR PO SCH (08:07)
[2023-09-17] MEDS: ATORVASTATIN 40 MG TAB PO SCH (08:07)
[2023-09-17] MEDS: METOPROLOL SUCC 50MG EXT REL TAB PO SCH (08:07)
[2023-09-17] MEDS: LANTUS PER UNIT CHARGE SQ ONE (08:10)
[2023-09-17] MEDS: PREGABALIN 75 MG CAP PO SCH (08:11)
[2023-09-17] MEDS: FUROSEMIDE INJ 20 MG/2 ML VIAL IV ONE (08:11)
--- NOTE | 2023-09-17 08:34 | Electrocardiogram Report ---
Test Reason : Blood Pressure : / mmHG Vent. Rate : 092 BPM Atrial Rate : 092 BPM P-R Int : 154 ms QRS Dur : 158 ms QT Int : 408 ms P-R-T Axes : 055 -26 049 degrees QTc Int : 504 ms Sinus rhythm with frequent , and consecutive Premature ventricular complexes Left axis deviation Right bundle branch block Abnormal ECG When compared with ECG of 24-FEB-2022 14:25, No significant change Confirmed by Mauricio Cheney ([id number]) on 09/17/2023 8:33:46 AM Referred By: REFERRED SELF Confirmed By:Mauricio Cheney
[2023-09-17] MEDS: HYDROmorphone INJ 1 MG/ML SYRINGE IV PRN (08:52)
[2023-09-17 09:18] LABS: Basophils # (auto) 0.06 K/uL (0.00-0.20); Basophils % (auto) 0.4 %; Eosinophils # (auto) 0.15 K/uL (0.00-0.50); Hematocrit (blood only) 22.4 % (42.0-52.0); Hemoglobin 7.3 g/dl (14.0-18.0); Immature Granulocytes % (auto) 2.1 %; Lymphocytes # (auto) 2.09 K/uL (1.20-3.40); Lymphocytes % (auto) 14.4 %; Mean Corpuscular Hemoglobin 31.7 pg (25.0-34.0); Mean Corpuscular Hgb Conc 32.6 g/dL (32.0-36.0); Mean Corpuscular Volume 97.4 fL (80.0-100.0); Mean Platelet Volume 12.1 fL (9.4-12.4); Monocytes # (auto) 1.05 K/uL (0.11-0.59); Monocytes % (auto) 7.3 %; Neutrophils # (auto) 10.83 K/uL (1.40-6.50); Neutrophils % (auto) 74.8 %; Nucleated RBC # (auto) 0.07 K/uL (0.00-0.12); Nucleated RBC % (auto) 0.5 %; Platelet Count 262 K/uL (130-400); RDW Coefficient of Variation 18.2 % (11.5-14.5); RDW Standard Deviation 61.8 fL (36.4-46.3); White Blood Count 14.48 K/ul (4.8-10.8)
[2023-09-17 09:35] LABS: Polychromasia 2+
[2023-09-17 09:39] LABS: Calcium 8.4 mg/dl (8.6-10.3); Est GFR (African American) 77.8 ml/min; Est GFR (Non-African American) 67.1 ml/min; Magnesium 1.8 mg/dl (1.7-2.4); Potassium 3.7 mmol/L (3.5-5.1)
[2023-09-17 09:42] LABS: INR 1.3 (0.9-1.1); Prothrombin Time 13.8 Seconds (9.0-12.0)
[2023-09-17 09:45] LABS: Estimated Average Glucose 108 mg/dl; Hemoglobin A1C 5.4 % (4.5-5.6)
--- NOTE | 2023-09-17 09:54 | Gastrointestinal Consultation ---
Date of Consultation September 17, 2023 Assessment & Plan (1) Symptomatic anemia: -Continue to monitor H/H -Continue PPI gtt for now -Keep NPO for EGD today -Further recommendations pending results of this study. Supervising Physician Co-Signing Physician Notes Agree with JL Barrera as above Interviewed and examined patient and agree with above Abd: Soft, NT, ND, +BS Continue current therapy and supportive care Proceed with EGD History of Present Illness Reason for Consultation: Anemia Attending Physician: Mary Armas MD History of Present Illness Patient is a 58 yo male with PMH of DM2 with neuropathy & PVD on Plavix & Coumadin for aortoiliac occlusive disease who presented with progressive weakness & dyspnea. The patient notes that he had a colonoscopy in March 2023 with Eddie RITCHIE and had polyps removed. He notes that over the past several days he developed severe heartburn and reflux. He believes his stools are dark, but notes that they have looked this way for some time. His H/H is currently 7.3/22.4. One episode of vomiting occurred on 09/16/23. No ongoing vomiting. Dad had esophageal cancer. Patient has never had an EGD. Vitals are stable at present. Coumadin & Plavix on hold. He is on a PPI gtt at present. Allergies Allergy/AdvReac Type Severity Reaction Status Date / Time metformin AdvReac Severe SEVERE Verified 03/28/23 08:38 DIARRHEA adhesive AdvReac Intermediate Blister Verified 03/28/23 08:38 Home Medications Medication Instructions Recorded Confirmed Type atorvastatin 40 mg tablet 40 mg PO QAM 06/16/22 09/17/23 History clopidogrel 75 mg tablet 75 mg PO QAM 06/16/22 09/17/23 History insulin aspart U-100 100 unit/mL 12 - 15 unit subcut TIDWMEAL 06/16/22 09/17/23 History (3 mL) subcutaneous pen insulin glargine 100 unit/mL (3 45 unit subcut QAM 06/16/22 09/17/23 History mL) subcutaneous pen (Lantus Solostar U-100 Insulin) insulin glargine 100 unit/mL 17 unit subcut HS 06/16/22 09/17/23 History subcutaneous solution (Lantus U-100 Insulin) lisinopril 40 mg tablet 40 mg PO QAM 06/16/22 09/17/23 History metoprolol succinate 50 mg 50 mg PO QAM 06/16/22 09/17/23 History tablet,extended release 24 hr warfarin 10 mg tablet 15 - 20 mg PO UD 06/16/22 09/17/23 History isosorbide mononitrate 30 mg 30 mg PO QAM #30 tabs 06/29/22 09/17/23 Rx tablet,extended release 24 hr albuterol sulfate 90 mcg/actuation 2 inh inhalation BID PRN Wheezing 11/05/22 09/17/23 History aerosol inhaler nitroglycerin 0.4 mg sublingual 0.4 mg sublingual Q5M PRN Chest 03/22/23 09/17/23 History tablet (Nitrostat) Pain pregabalin 75 mg capsule 75 mg PO AMHS 09/17/23 09/17/23 History Patient History Medical History (Updated 09/17/23 @ 10:11 by Alize Nevarez DO) Neuropathy Aortoiliac occlusive disease PVD (peripheral vascular disease) Diabetic neuropathy T2DM (type 2 diabetes mellitus) IDDM Morbid obesity HLD (hyperlipidemia) HTN (hypertension) Hx of necrotising fasciitis 01/26/23, hospitalized for 1 month (still living in [place] at the time), hx abscesses that he self drained, had one that was he unable to manage>became septic area [id number] Hx of basal cell carcinoma Hx of migraines Arthritis Depression no meds PVD (peripheral vascular disease) unable to ambulate more than 25 feet without requiring his wheelchair or rollator/walker; always uses w/c outside of home V tach hx of > last episode 10/2022 > took nitro Atrial fibrillation no pacer > dx Feb 2022 > follows with Dr. Jacobson History of COVID-2020 > not hospitalized>no residual symptoms Chronic obstructive pulmonary disease uses res inh approx 4x day Hx of deep venous thrombosis Feb 2022 > bilat legs > due to neuropathy/diabetes > Warfarin/plavix MEETA (obstructive sleep apnea) not on cpap or O2 Surgical History Hx of skin graft lt leg S/P excisional debridement x4, left leg due to necrotising fascitis Hx of basal cell carcinoma excision History of hip surgery as child, left hip History of tooth extraction History of tonsillectomy History of cardiac cath x several, no stents, last one June 2022 at [facility], no stents "chasing blood clots to make sure none had entered his heart" Hx of laminectomy L3-S1 Family History Other Cancer Diabetes Family history of blood clots Heart disease Social History Smoking Status: Current every day smoker Tobacco Type: Cigars Cigarettes Per Day: 2-3; Second Hand Exposure: No; Do You Dip or Chew Tobacco: No; Hx Alcohol Use: No Hx Substance Use: Yes Prescribed Medications: Marijuana Last Used Substance: Days (ago) Last Used Substance Other:: 03/21/23, daily Substance Use Type Other:: uses daily > not medical card Preferred Language: Venezuelan Communication Ability: Effective Visual Impairment: Limited Hearing Ability: Hard of Hearing Business Objects Required: No Beliefs That Will Affect Care: None marital status: marital status details: but currently going through divorce Current Living Situation: Spouse Current Living Situation Comment: pt states he and his are in the process of current occupational status: unemployed How many Children do You have: 2 How many Children do You have Comment: son is involved with care and able to assist with care as needed (son lives 30 minutes from pt) Feels Safe at Home: Yes Safety Concerns: Feels Safe At This Time Diet: regular Diet Comment: tries to pay attention to what he eats regarding diabetes. during the past year weight has: increased > 10 lbs Assistive Devices: Glasses and Walker Review of Systems Constitutional: no fever and no chills Respiratory: + dyspnea; no cough Cardiovascular: no chest pain Gastrointestinal: + abdominal pain, + heartburn and + jacquelin na Psychiatric: no problem reported Physical Exam Constitutional: well developed Respiratory: normal respiratory effort Gastrointestinal (Abdomen): normal bowel sounds, soft, nontender, no hepatosplenomegaly Psychiatric: Orientation: alert and oriented x 3 Results & Data Vital Signs (Past 12 Hours) Vital Signs Temp Pulse Pulse Resp BP BP Pulse Ox 09/17/23 08:01 159/68 H 09/17/23 08:01 74 17 98 09/17/23 08:00 36.4 C L 09/17/23 07:55 36.4 C L 87 22 155/67 H 94 09/17/23 06:55 36.8 C 72 14 148/45 H 94 09/17/23 06:25 36.8 C 85 14 125/52 L 94 09/17/23 06:10 36.8 C 82 14 121/61 97 09/17/23 05:53 36.8 C 87 14 162/73 H 97 09/17/23 05:50 84 16 96 09/17/23 05:40 83 21 97 09/17/23 05:33 36.7 C 87 18 162/73 H 95 09/17/23 05:30 82 19 09/17/23 05:22 91 H 18 09/17/23 05:22 162/73 H 09/17/23 05:21 94 H 16 09/17/23 05:00 124/84 09/17/23 05:00 85 21 09/17/23 05:00 74 18 124/84 94 09/17/23 04:50 91 H 26 H 09/17/23 04:40 97 H 25 H 09/17/23 04:30 96 H 22 09/17/23 04:00 93 H 21 113/84 93 09/17/23 03:00 99 H 21 138/59 L 94 09/17/23 03:00 98 H 18 138/59 L 98 09/17/23 02:00 92 H 17 131/60 95 09/17/23 01:48 93 H 09/17/23 01:06 84 14 144/77 H 99 09/16/23 23:09 89 18 134/63 98 09/16/23 23:00 89 17 134/63 95 09/16/23 22:00 92 H 22 133/65 97 09/16/23 21:58 95 H 18 120/66 09/16/23 21:49 93 H O2 Del Method 09/17/23 08:01 09/17/23 08:01 Room Air 09/17/23 08:00 09/17/23 07:55 09/17/23 06:55 09/17/23 06:25 09/17/23 06:10 09/17/23 05:53 09/17/23 05:50 09/17/23 05:40 09/17/23 05:33 Room Air 09/17/23 05:30 05/28/24 05:22 09/17/23 05:22 09/17/23 05:21 09/17/23 05:00 09/17/23 05:00 09/17/23 05:00 Room Air 09/17/23 04:50 09/17/23 04:40 09/17/23 04:30 09/17/23 04:00 Room Air 09/17/23 03:00 Room Air 09/17/23 03:00 Room Air 09/17/23 02:00 Room Air 09/17/23 01:48 09/17/23 01:06 Room Air 09/16/23 23:09 Room Air 09/16/23 23:00 Room Air 09/16/23 22:00 Room Air 09/16/23 21:58 09/16/23 21:49 PG Care Time/CCT Total # of Minutes Spent Total Time Spent with Patient: Total time spent is greater than 50% in coordination of care (as documented) at patient's floor/unit and/or counseling patient: Coding Level of Care Code 64743 IN/OBS CONSULT LVL 4,60M Diagnoses Symptomatic anemia D64.9
--- NOTE | 2023-09-17 10:18 | Anesthesiology Consultation ---
Date of Service September 17, 2023 Assessment & Plan Chart Review Chart Review: Acceptable Risk for Surgery Consults Requested none ASA ASA4 Proposed Anesthesia Anesthesia Type: MAC Risk / Benefits Reviewed With: PT / POA / Parent / Guardian, Accepts Plan and Informed Consent Obtained Additional Comments: no emesis since 09/16/23 History Surgery Operation Date: 09/17/23 16:45 Proposed Procedures p Esophagogastroduodenoscopy Dr Robins - Bowen Chopra Case, DO Height/Weight Height: 5 ft 9 in Weight: 156.3 kg Allergies Allergy/AdvReac Type Severity Reaction Status Date / Time metformin AdvReac Severe SEVERE Verified 03/28/23 08:38 DIARRHEA adhesive AdvReac Intermediate Blister Verified 03/28/23 08:38 Medications Home Medications Medication Instructions Recorded Confirmed Last Taken atorvastatin 40 mg tablet 40 mg PO QAM 06/16/22 09/17/23 09/16/23 clopidogrel 75 mg tablet 75 mg PO QAM 06/16/22 09/17/23 09/16/23 insulin aspart U-100 100 unit/mL 12 - 15 unit subcut TIDWMEAL 06/16/22 09/17/23 09/16/23 (3 mL) subcutaneous pen insulin glargine 100 unit/mL (3 45 unit subcut QAM 06/16/22 09/17/23 09/16/23 mL) subcutaneous pen (Lantus Solostar U-100 Insulin) insulin glargine 100 unit/mL 17 unit subcut HS 06/16/22 09/17/23 09/15/23 subcutaneous solution (Lantus U-100 Insulin) lisinopril 40 mg tablet 40 mg PO QAM 06/16/22 09/17/23 09/16/23 metoprolol succinate 50 mg 50 mg PO QAM 06/16/22 09/17/23 09/16/23 tablet,extended release 24 hr warfarin 10 mg tablet 15 - 20 mg PO UD 06/16/22 09/17/23 09/13/23 isosorbide mononitrate 30 mg 30 mg PO QAM #30 tabs 06/29/22 09/17/23 09/16/23 tablet,extended release 24 hr albuterol sulfate 90 mcg/actuation 2 inh inhalation BID PRN Wheezing 11/05/22 09/17/23 09/16/23 aerosol inhaler nitroglycerin 0.4 mg sublingual 0.4 mg sublingual Q5M PRN Chest 03/22/23 09/17/23 09/16/23 tablet (Nitrostat) Pain pregabalin 75 mg capsule 75 mg PO AMHS 09/17/23 09/17/23 09/16/23 Active Medications Generic Name Dose Route Start Last Admin Trade Name Freq PRN Reason Stop Dose Admin Atorvastatin Calcium 40 mg 09/17/23 09:00 09/17/23 08:07 Atorvastatin 40 Mg Tab PO 10/17/23 08:59 40 mg QAM PATSY Administration Hydromorphone HCl 1 mg 09/17/23 08:34 09/17/23 08:52 Hydromorphone Inj 1 Mg/Ml Syringe IV 10/01/23 08:33 1 mg Q6H PRN Administration Pain Sodium Chloride 1,000 mls @ 100 mls/hr 09/17/23 05:21 09/17/23 05:44 Nss IV 10/17/23 05:20 100 mls/hr .Q10H PATSY Administration Pantoprazole Sodium 40 mg/ 100 mls @ 20 mls/hr 09/17/23 05:21 09/17/23 11:08 Dextrose IV 10/17/23 05:20 8 mg/hr Q5H PATSY 20 mls/hr Administration 8 MG/HR Piperacillin Sod/Tazobactam 100 mls @ 25 mls/hr 09/17/23 06:00 09/17/23 07:38 Sod 4.5 gm/ Dextrose IV 09/19/23 05:59 25 mls/hr Q8H PATSY Administration Protocol Insulin Aspart 0 units 09/17/23 06:00 09/17/23 06:07 Insulin Aspart Per Unit Charge SC 10/17/23 05:59 Not Given Q6 PATSY Isosorbide Mononitrate 30 mg 09/17/23 09:00 09/17/23 08:07 Isosorbide Adair Extended Rel 30 Mg Tabcr PO 10/17/23 08:59 30 mg QAM PATSY Administration Metoprolol Succinate 50 mg 09/17/23 09:00 09/17/23 08:07 Metoprolol Succ 50mg Ext Rel Tab PO 10/17/23 08:59 50 mg QAM PATSY Administration Pregabalin 75 mg 09/17/23 09:00 09/17/23 08:11 Pregabalin 75 Mg Cap PO 10/17/23 08:59 75 mg AMHS PATSY Administration NPO Date Last Intake of Fluids: 09/16/23 Time Last Intake of Fluids: 23:59 Date Last Intake of Solids: 09/16/23 Time Last Intake of Solids: 15:00 Past Medical History Medical History (Updated 09/17/23 @ 10:11 by Alize Nevarez DO) Neuropathy Aortoiliac occlusive disease PVD (peripheral vascular disease) Diabetic neuropathy T2DM (type 2 diabetes mellitus) IDDM Morbid obesity HLD (hyperlipidemia) HTN (hypertension) Hx of necrotising fasciitis 01/26/23, hospitalized for 1 month (still living in [place] at the time), hx abscesses that he self drained, had one that was he unable to manage>became septic area [id number] Hx of basal cell carcinoma Hx of migraines Arthritis Depression no meds PVD (peripheral vascular disease) unable to ambulate more than 25 feet without requiring his wheelchair or rollator/walker; always uses w/c outside of home V tach hx of > last episode 10/2022 > took nitro Atrial fibrillation no pacer > dx Feb 2022 > follows with Dr. Jacobson History of COVID-2020 > not hospitalized>no residual symptoms Chronic obstructive pulmonary disease uses res inh approx 4x day Hx of deep venous thrombosis Feb 2022 > bilat legs > due to neuropathy/diabetes > Warfarin/plavix MEETA (obstructive sleep apnea) not on cpap or O2 Exercise / Class Metabolic Activity II 4-5 Yardwork/Stairs/Walk up hill Past Family History Family History Other Cancer Diabetes Family history of blood clots Heart disease Past Surgical History Surgical History Hx of skin graft lt leg S/P excisional debridement x4, left leg due to necrotising fascitis Hx of basal cell carcinoma excision History of hip surgery as child, left hip History of tooth extraction History of tonsillectomy History of cardiac cath x several, no stents, last one June 2022 at [facility], no stents "chasing blood clots to make sure none had entered his heart" Hx of laminectomy L3-S1 Past Anesthesia History No Hx of Anesthesia Complications and No Family Hx of Anesthesia Complications History of PONV No Hx of PONV and No Hx of Motion Sickness Social History Smoking Status: Current every day smoker tobacco type: cigarettes Smoking cigarettes per day: 2-3 Do You Dip or Chew Tobacco: No Hx Alcohol Use: No Alcohol type: beer alcohol intake frequency: holidays/special occasions only Hx Substance Use: Yes substance use type: marijuana and prescription drug Substance Use Type Other:: uses daily > not medical card Last Used Substance: Days (ago) Last Used Substance Other:: 03/21/23, daily Physical Exam Vital Signs Last Vital Signs Temp 36.4 C L 09/17/23 08:00 Pulse 74 09/17/23 08:01 Resp 17 09/17/23 08:01 BP 159/68 H 09/17/23 08:01 Pulse Ox 98 09/17/23 08:01 O2 Del Method Room Air 09/17/23 08:01 Constitutional + morbidly obese ENMT Mouth: + dentition abnormality (few chips throughout upper and lower front teeth); no TMJ abnormality Thyromental Distance: > or= 3.5 Finger Breadths Mallampati Class: III Neck normal visual inspection, trachea midline, + thick neck and + facial hair; neck extension not limited Respiratory normal respiratory effort Auscultation: + diminished lung sounds and + wheezes Cardiovascular Rate/Rhythm: regular rate and regular rhythm Heart Sounds: no murmur Musculoskeletal Spine: normal cervical ROM Extremities: full ROM of extremities Neurologic moves all extremities Psychiatric Orientation: alert and oriented x 3 Testing Laboratory Results 09/17/23 08:59 09/17/23 08:59 PT 13.8 Seconds (9.0-12.0) H 09/17/23 08:59 INR 1.3 (0.9-1.1) H 09/17/23 08:59 Hemoglobin A1c 5.4 % (4.5-5.6) 09/17/23 08:59 Urine Color Yellow 09/17/23 00:00 Urine Appearance Clear (Clear) 09/17/23 00:00 Urine pH 5.0 (4.5-7.5) 09/17/23 00:00 Ur Specific [place] 1.017 (1.000-1.030) 09/17/23 00:00 Urine Protein 1+ (Negative) H 09/17/23 00:00 Urine Glucose (UA) Negative (Negative) 09/17/23 00:00 Urine Ketones Trace (Negative) H 09/17/23 00:00 Urine Nitrite Negative (Negative) 09/17/23 00:00 Ur Leukocyte Esterase 1+ (Negative) H 09/17/23 00:00 Urine WBC (Auto) 0-5 /hpf (0-5) 09/17/23 00:00 Urine RBC (Auto) 0-2 /hpf (0-2) 09/17/23 00:00 U Hyaline Cast (Auto) 11-20 /lpf (0-2) H 09/17/23 00:00 U Epithel Cells (Auto) 0-2 /hpf (0-2) 09/17/23 00:00 Urine Bacteria (Auto) None Seen (None Seen) 09/17/23 00:00 Blood Type A Positive 09/17/23 00:02 Antibody Screen NEGATIVE 09/17/23 00:02 09/17/23 06:06 POC Glucose 121 H Electrocardiogram Date: 09/16/23 Findings: + NSR @ (92) and + RBBB LAD Chest X-Ray Date: 09/16/23 Findings: + NAD and + cardiomegaly Echocardiogram Date: 05/22/22 EF: 50-54% Other Findings: + LVH (mild) Valvular Disease: + no significant valvular disease and + MR (mild) Cardiac Catheterization Date: 06/29/22 Findings: + pertinent finding (mod CAD 60% distal Lcx) Intervention: + none (med mgt recommended)
--- NOTE | 2023-09-17 10:54 | Pharmacy Report ---
Pharmacy Glycemic Short Note 2 - Date of Service September 17, 2023 - Glycemic Short BSG Results (Last 24 hours): 09/16/23 09/17/23 09/17/23 22:54 06:06 08:59 Glucose 108 H 108 H POC Glucose 121 H OUTPATIENT ANTIDIABETIC REGIMEN: * Lantus 45 units AM + 17 units HS * Novolog 12-15 units with each meal * A1c = 5.4% - however pt had received 1 unit PRBCs when this was drawn ASSESSMENT: * Type 2 diabetic admitted for symptomatic anemia, ANUEL * Per outpt med rec patient receives ~100 units of insulin per day from basal/bolus regimen. * Given current BSGs and NPO status, will initiate a reduced dose of basal insu tammy. Bolus insulin will also be reduced empirically as A1c drawn today was below goal for most diabetics, this A1c could have been skewed by receipt of PRBC - but current BSG pattern warrants lesser insulin doses as initial therapy. PLAN FOR INPATIENT GLYCEMIC CONTROL: * Basal insulin * Lantus 0-16 units SQ BID per scale: 0 units if BSG less than 110, 10 units if BSG 110-140, 16 units if BSG above 140 * Bolus insulin * NovoLog per scale ACHS or Q6hrs while NPO * Goal Range: Low 110 mg/dL - High 160 mg/dL * Correction Factor: 18 mg/dL/unit * Nutritional / Prandial insulin per carb ratio of 1 unit per 6 grams CHO consumed
[2023-09-17] MEDS: ALBUT/IPRATROP 3MG/0.5MG NEB 3 ML VIAL NEB ONE (12:21)
[2023-09-17 13:05] LABS: Hematocrit (blood only) 22.6 % (42.0-52.0); Hemoglobin 7.3 g/dl (14.0-18.0)
--- NOTE | 2023-09-17 13:41 | GI REPORT ---
Patient Name: Thiago Carmona Procedure Date: 09/17/2023 1:27 PM Date of : 1965 Admit Type: Inpatient Age: 58 Gender: Male Attending MD: Bowen Robins DO, Procedure: Upper GI endoscopy Providers: Bowen Robins DO Referring MD: Referred Self Indications: Melena Medicines: Monitored Anesthesia Care Complications: No immediate complications. Estimated Blood Loss: Estimated blood loss: none. Procedure: Pre-Anesthesia Assessment: - Prior to the procedure, a History and Physical was performed, and patient medications and allergies were reviewed. The patient's tolerance of previous anesthesia was also reviewed. The risks and benefits of the procedure and the sedation options and risks were discussed with the patient. All questions were answered, and informed consent was obtained. Prior Anticoagulants: The patient last took Coumadin (warfarin) 4 days and Plavix (clopidogrel) 1 day prior to the procedure. ASA Grade Assessment: IV - A patient with severe systemic disease that is a constant threat to life. After reviewing the risks and benefits, the patient was deemed in satisfactory condition to undergo the procedure. After obtaining informed consent, the endoscope was passed under direct vision. Throughout the procedure, the patient's blood pressure, pulse, and oxygen saturations were monitored continuously. The Endoscope was introduced through the mouth, and advanced to the second part of duodenum. The upper GI endoscopy was accomplished without difficulty. The patient tolerated the procedure well. Findings: The esophagus was normal. A small hiatal hernia was present. Localized minimal inflammation characterized by erythema was found in the gastric antrum. The examined duodenum was normal. Impression: - Normal esophagus. - Small hiatal hernia. - Gastritis. - Normal examined duodenum. - No specimens collected. Recommendation: - [facility]. - Clear liquid diet. - Continue present medications. - If patient has any further bleeding, I would recommend CTA of Abd/pelvis as he has had a colonoscopy this year. Bowen Robins DO 09/17/2023 1:41:18 PM This report has been signed electronically. Note Initiated On: 09/17/2023 1:27 PM Number of Addenda: 0 I attest to the content of the Intraoperative Record and orders documented therein, exceptions below {[id number]}
--- NOTE | 2023-09-17 13:57 | Anesthesiology Progress Note ---
Date of Service September 17, 2023 Anesthesia Post Procedure Vital Signs Vital Signs: Temp Pulse Pulse Resp BP BP Pulse Ox 09/17/23 13:41 76 18 114/59 L 97 09/17/23 13:19 36.7 C 73 18 140/66 95 09/17/23 12:22 80 16 95 09/17/23 08:01 159/68 H 09/17/23 08:01 74 17 98 09/17/23 08:00 82 09/17/23 08:00 36.4 C L 09/17/23 07:55 36.4 C L 87 22 155/67 H 94 09/17/23 06:55 36.8 C 72 14 148/45 H 94 09/17/23 06:25 36.8 C 85 14 125/52 L 94 09/17/23 06:10 36.8 C 82 14 121/61 97 09/17/23 05:53 36.8 C 87 14 162/73 H 97 09/17/23 05:50 84 16 96 09/17/23 05:40 83 21 97 09/17/23 05:33 36.7 C 87 18 162/73 H 95 09/17/23 05:30 82 19 09/17/23 05:22 91 H 18 09/17/23 05:22 162/73 H 09/17/23 05:21 94 H 16 09/17/23 05:00 124/84 09/17/23 05:00 85 21 09/17/23 05:00 74 18 124/84 94 09/17/23 04:50 91 H 26 H 09/17/23 04:40 97 H 25 H 09/17/23 04:30 96 H 22 09/17/23 04:00 93 H 21 113/84 93 09/17/23 03:00 99 H 21 138/59 L 94 09/17/23 03:00 98 H 18 138/59 L 98 09/17/23 02:00 92 H 17 131/60 95 09/17/23 01:48 93 H 09/17/23 01:06 84 14 144/77 H 99 09/16/23 23:09 89 18 134/63 98 09/16/23 23:00 89 17 134/63 95 09/16/23 22:00 92 H 22 133/65 97 09/16/23 21:58 95 H 18 120/66 05/27/24 21:49 93 H 09/16/23 21:26 36.6 C 75 17 121/71 94 O2 Del Method 09/17/23 13:41 Room Air 09/17/23 13:19 Room Air 09/17/23 12:22 Room Air 09/17/23 08:01 09/17/23 08:01 Room Air 09/17/23 08:00 09/17/23 08:00 09/17/23 07:55 09/17/23 06:55 09/17/23 06:25 09/17/23 06:10 09/17/23 05:53 09/17/23 05:50 09/17/23 05:40 09/17/23 05:33 Room Air 09/17/23 05:30 09/17/23 05:22 09/17/23 05:22 09/17/23 05:21 09/17/23 05:00 09/17/23 05:00 09/17/23 05:00 Room Air 09/17/23 04:50 09/17/23 04:40 09/17/23 04:30 09/17/23 04:00 Room Air 09/17/23 03:00 Room Air 09/17/23 03:00 Room Air 09/17/23 02:00 Room Air 09/17/23 01:48 09/17/23 01:06 Room Air 09/16/23 23:09 Room Air 09/16/23 23:00 Room Air 09/16/23 22:00 Room Air 09/16/23 21:58 09/16/23 21:49 09/16/23 21:26 Room Air Transfer of Care Handoff Completed per policy Notes Mental Status: alert / awake / arousable Patient Amnestic to Procedure: Yes Nausea / Vomiting: adequately controlled Pain: adequately controlled Airway Patency, RR, SpO2: stable & adequate BP & HR: stable & adequate Hydration State: stable & adequate Anesthetic Complications: no major complications apparent and Pt Satisfied with anesthetic care
[2023-09-17] MEDS: KETAMINE HCL 10MG/ML SYR ONE (14:31)
[2023-09-17] MEDS: BENZOCAINE/TETRACAIN/BUTAM 50 APPLN/5 GM CAN EXT ONE (14:31)
[2023-09-17] MEDS: PROPOFOL IV EMULSION 10 MG/ML 20 ML VIAL IV ONE (14:31)
[2023-09-17] MEDS: LIDOCAINE 2% 2 ML VIAL/AMP(20MG/ML) INFIL ONE (14:31)
--- NOTE | 2023-09-17 16:12 | Communication Note ---
Date of Service: September 17, 2023 Evaluated patient at bedside after EGD Denies any abdominal pain or concerns no nausea or vomiting EGD reviewed: mild inflammation with erythema in gastric antrum #Acute on chronic anemia, c/f GIB elevated BUN, stable renal s/p 1 Unit PRBC 09/15 EGD without clear cause If down trending, plan for CTA abd/pelvis continue PPI drip CLD #ANUEL *resolving s/p Fluids repeat bmp #ASCVD #Chronic HFpEF -Continue medical management, metoprolol, isosorbide, clopidogrel, moderate intensity statin therapy -Held Lisinopril 40 mg/day given relative hypotension -Continue statin -Continue Imdur 30mg daily -Holding diuretic (home lasix prn) -Holding plavix 2/2 GIB--resume when able #Hx of SVT, NSVT, PACs -On OP zio from 2022 -Continue metoprolol succinate 50 mg/day #Chronic tobacco abuse Tobacco cessation urged. #Leukocytosis downtrending, on empiric zosyn, no infectious symptoms Await final infectious work up with 48 hour stop on zosyn #Peripheral vascular disease, iliac artery stenosis, followed by [facility] On chronic anticoagulation, INR 1.3 Repeat INR in am, resume AC when able based upon stable hgb #Longstanding type 2 diabetes mellitus with neuropathy basal/bolus #MEETA intolerant to CPAP rest of plan per HP
[2023-09-17] MEDS ORDERED: Nursing to Pharmacy Communication SCH (16:30)
[2023-09-17] MEDS: oxyCODONE HCL IR 5 MG TAB (IMMEDIATE RELEASE) PO PRN (16:55)
[2023-09-17 18:22] LABS: A calco-baum cmplx NotReported Not Detected (NotDetected); Bact fragilis Not Reported Not Detected (NotDetected); Blood Culture Id Panel PCR Panel Negative (NotDetected); C auris Not Reported Not Detected (NotDetected); Calbicans Not Reported Not Detected (NotDetected); Candida glabrata Not Reported Not Detected (NotDetected); Candida krusei Not Reported Not Detected (NotDetected); Cneoformans/gatti Not Reported Not Detected (NotDetected); Cparapsilosis Not Reported Not Detected (NotDetected); E cloacae compx Not Reported Not Detected (NotDetected); Efaecalis Not Reported Not Detected (NotDetected); Efaecium Not Reported Not Detected (NotDetected); Enterobacterales Not Reported Not Detected (NotDetected); Escherichia coli Not Reported Not Detected (NotDetected); H influenzae Not Reported Not Detected (NotDetected); K aerogenes Not Reported Not Detected (NotDetected); Koxytoca Not Reported Not Detected (NotDetected); Kpneumoniae grp Not Reported Not Detected (NotDetected); Lmonocyt Not Reported Not Detected (NotDetected); N meningitidis Not Reported Not Detected (NotDetected); P aeruginosa Not Reported Not Detected (NotDetected); Proteus spp Not Reported Not Detected (NotDetected); Salmonella spp Not Reported Not Detected (NotDetected); Smarcescens Not Reported Not Detected (NotDetected); Staph lugdunensis Not Reported Not Detected (NotDetected); Staph spp. Not Reported Not Detected (NotDetected); Staphaureus Not Reported Not Detected (NotDetected); Staphepi Not Reported Not Detected (NotDetected); Stenmaltophilia Not Reported Not Detected (NotDetected); Strep agal(GrpB) Not Reported Not Detected (NotDetected); Strep pneum Not Reported Not Detected (NotDetected); Strep pyog (GrpA) Not Reported Not Detected (NotDetected); Strep spp Not Reported Not Detected (NotDetected)
[2023-09-17 20:17] LABS: Hematocrit (blood only) 22.1 % (42.0-52.0); Hemoglobin 7.2 g/dl (14.0-18.0)
[2023-09-17] MEDS: LANTUS PER UNIT CHARGE SQ SCH (20:51)
[2023-09-18 05:43] LABS: Hemoglobin 6.7 g/dl (14.0-18.0); Immature Retic Fraction 37.9 % (2.3-15.9); Mean Corpuscular Hemoglobin 31.3 pg (25.0-34.0); Mean Corpuscular Hgb Conc 31.9 g/dL (32.0-36.0); Mean Corpuscular Volume 98.1 fL (80.0-100.0); Mean Platelet Volume 11.6 fL (9.4-12.4); Nucleated RBC # (auto) 0.04 K/uL (0.00-0.12); Nucleated RBC % (auto) 0.4 %; Platelet Count 253 K/uL (130-400); RDW Coefficient of Variation 18.5 % (11.5-14.5); RDW Standard Deviation 64.6 fL (36.4-46.3); Red Blood Count 2.14 M/uL (4.70-6.10); Reticulated Hemoglobin 32.7 pg (28.2-36.6); Reticulocyte % 10.42 % (0.50-2.00); White Blood Count 10.99 K/ul (4.8-10.8)
[2023-09-18 05:48] LABS: Magnesium 1.7 mg/dl (1.7-2.4); Potassium 3.7 mmol/L (3.5-5.1)
[2023-09-18 06:04] LABS: INR 1.1 (0.9-1.1); Prothrombin Time 11.6 Seconds (9.0-12.0)
[2023-09-18 06:09] LABS: BUN Creatinine Ratio 28.1 (10-20); Creatinine Clr Calc Pharmacy 132.6 ml/min; Est GFR (African American) 108.5 ml/min; Est GFR (Non-African American) 93.6 ml/min; Phosphorus 2.9 mg/dl (2.5-4.9)
[2023-09-18] MEDS ORDERED: SODIUM CHLORIDE 0.9% 250 ML IV PRN (06:19)
[2023-09-18] MEDS: OPTIRAY 320 125ml IV ONE (06:47)
[2023-09-18 06:51] LABS: Ferritin 15.1 ng/ml (8-388)
--- NOTE | 2023-09-18 08:24 | CT Scan Report ---
CT angio abdomen pelvis w con CLINICAL HISTORY: anemia. TECHNIQUE: Multidetector row helical CT of the abdomen and pelvis was performed, following intravenou s administration of iodinated contrast. No oral contrast was administered. Automated dose lowering te chniques and/or adjustment according to patient size were utilized for this exam. Coronal and sagitta l reformations were obtained. MIP and 3D volume rendered reconstructions were obtained. CT DOSE: 1622.52 mGy.cm Comparison: Comparison is made to CT abdomen pelvis 02/24/2022 FINDINGS: Lower chest: Bibasilar atelectasis versus scarring is seen. Liver: Unremarkable. No focal lesions are seen. Gallbladder and biliary tree: Cholelithiasis is seen without evidence of cholecystitis. No intra- or extrahepatic biliary ductal dilation. Pancreas: Unremarkable, no focal lesions. Spleen: Unremarkable. Adrenals: Unremarkable. Kidneys and ureters: Unremarkable. Bladder: Unremarkable. Reproductive organs: Unremarkable. Bowel: Diverticulosis is seen without diverticulitis. The appendix is normal. There is a small hiatal hernia. Lymph nodes Retroperitoneal: Subcentimeter lymph nodes are noted. Pelvic: Unremarkable. Mesenteric: Unremarkable. Peritoneum: Normal. Abdominal wall: Unremarkable. Bones: Degenerative changes in the visualized spine. CT angiogram: The abdominal aortic contours appear intact without evidence of aneurysmal dilatation a nd/or dissection. There is evidence of scattered atherosclerotic calcifications of the abdominal aor ta and its major branches. The origins of the celiac axis, superior mesenteric, inferior mesenteric and bilateral renal arteries are patent. 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 N arrowing of the left internal and external iliac arteries without hemodynamically significant stenosi s. 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 No acute abnormalities to explain anemia. ACT 112: Negative or not required by law. Electronically signed by: Caio Sims M.D. 09/18/2023 8:22 AM
[2023-09-18] MEDS: ACETAMINOPHEN 325 MG TAB PO STA (08:42)
[2023-09-18] MEDS: D5W AND 1/2NSS 1,000 ML IV SCH (08:45)
[2023-09-18] MEDS: lisinopril 40 MG TAB PO SCH (08:47)
[2023-09-18] MEDS: FUROSEMIDE INJ 20 MG/2 ML VIAL IV ONE (10:38)
--- NOTE | 2023-09-18 11:11 | Pharmacy Report ---
Pharmacy Glycemic Short Note 2 - Date of Service September 18, 2023 - Glycemic Short BSG Results (Last 24 hours): 09/17/23 09/17/23 09/17/23 12:10 16:15 20:37 Glucose POC Glucose 128 H 178 H 113 H 09/18/23 09/18/23 05:16 08:50 Glucose 81 POC Glucose 109 H OUTPATIENT ANTIDIABETIC REGIMEN: * Lantus 45 units AM + 17 units HS * Novolog 12-15 units with each meal * A1c = 5.4% - however pt had received 1 unit PRBCs when this was drawn ASSESSMENT: 09/17 * BSGs well controlled over last 24 hours * Fasting BSG this AM 81-109 with 20 units basal on board - substantially less than what patient was reportedly taking as outpatient * Patient remains NPO again today, however is now ordered dextrose containing maint IVFs along with Zosyn and Protonix gtt's mixed in dextrose * Current insulin doses are reasonable to continue for the next 24 hrs 09/16 * Type 2 diabetic admitted for symptomatic anemia, ANUEL * Per outpt med rec patient receives ~100 units of insulin per day from basal/bolus regimen. * Given current BSGs and NPO status, will initiate a reduced dose of basal insulin. Bolus insulin will also be reduced empirically as A1c drawn today was below goal for most diabetics, this A1c could have been skewed by receipt of PRBC - but current BSG pattern warrants lesser insulin doses as initial therapy. PLAN FOR INPATIENT GLYCEMIC CONTROL: * Basal insulin * Lantus 0-16 units SQ BID per scale: 0 units if BSG less than 110, 10 units if BSG 110-140, 16 units if BSG above 140 * Bolus insulin * NovoLog per scale ACHS or Q6hrs while NPO * Goal Range: Low 110 mg/dL - High 160 mg/dL * Correction Factor: 18 mg/dL/unit * Nutritional / Prandial insulin per carb ratio of 1 unit per 6 grams CHO consumed
[2023-09-18 12:02] LABS: Folate (Folic Acid),Ser orPlas 10.51 ng/ml (>5.38)
--- NOTE | 2023-09-18 12:14 | Communication Note ---
Date of Service: September 18, 2023 Patient's H/H dropped to 6.7/21.0 after EGD on 09/17/23. A CTA was obtained and did not indicate any active GI bleeding. If anemia persists, consider hematology consult and plan for VCE as an outpatient.
[2023-09-18] MEDS: INSULIN ASPART PER UNIT CHARGE SC SCH ×2 (13:01→17:56)
[2023-09-18 13:26] LABS: Hematocrit (blood only) 25.6 % (42.0-52.0); Hemoglobin 8.3 g/dl (14.0-18.0)
--- NOTE | 2023-09-18 16:39 | Hospitalist Progress Note ---
Date of Service September 18, 2023 Assessment & Plan (1) Symptomatic anemia: Plan: 58-year-old male with PMH of type 2 diabetes c/w PDN, hyperlipidemia, obstructive sleep apnea nontolerant of the CPAP, mild intermittent asthma, peripheral vascular disease, paroxysmal supraventricular tachycardia, mild CAD, hypertension, obesity, ongoing tobacco abuse presents with progressive shortness of breath on minimal exertion and found to have anemia of hemoglobin of 7.2 and Hemoccult positive in the ER. Patient states lately getting short of breath which progressively got worse that now walking few steps making him short of breath. has Mild cough. Had an episode of vomiting [employer] but no blood in the vomitus. He had some chest heaviness and dizziness, blurry vision all s/s of symptomatic anemia. Stools has been dark since his colonoscopy this year. Normal micturition. He is being managed for the following: Symptomatic anemia Likely GI bleed, likely UGI bleed: FOBT +ve at ED, BUN elevated at presentation, came in w/ black stool complaints. Patient coming in with complaint of progressive shortness of breath/dizziness/blurry vision/chest heaviness ISO black his stool x few months. Admitting echo with EF of 50 to 55%, moderate aortic root dilatation [4.7 cm], no regional wall motion abnormality, mild concentric LVH. Admitting hemoglobin of 7.2, hemoglobin of around 12 May/June last year. MCV in high 90s, folate 10.51, vitamin B12 526. Iron 18 with transferrin saturation of 6 and ferritin of 15. T bili wnl. Admitting CXR and CT head with no acute finding. 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 No acute abnormalities to explain anemia. 09/16 EGD scope: Normal esophagus, small hiatal hernia, gastritis noted, no specimens collected. Normal examined duodenum. Patient reports he has no BM in last 3 days, hemoglobin 6.7 this a.m., continues to have weakness/dizziness in the morning. Will transfuse 2 unit PRBC, follow H&H closely, continue telemetry monitoring, advance diet as tolerated. GI evaluated, appreciate recommendation. Recommends hematology consult if with persistent anemia. And plan for VCE as an outpatient. c/w IV PPI, to PO PPI if HnH stable by emery. Will c/w iron supplement 09/17, will add folic acid and b12 supplement. Repeat Iron profile in 3 months. PT/OT Acute kidney injury: Admitting creatinine of 1.51, likely prerenal secondary to anemia. Resolved. Leukocytosis: On empiric Zosyn. No signs of infection so far, imagings as above. Procalcitonin negative. WBC trending down. Patient has been afebrile. Patient denies fever prior to arrival. Patient denies any complaint of cough or pain or burning while passing urine. pt was being treated for LE cellulitis as OP, will follow on that. Chest heaviness: Likely from anemia, no further complaints today, serial enzymes negative, echo reviewed. Continue telemetry monitoring. If any concern, consult cardiology. Peripheral vascular disease: in February 2022 was found to have iliac stenosis with toe ulceration, Vacular surgery: no intervention was recommended but advised to start an oral anticoagulant. Seems since then on Coumadin, INR at presentation 1.8. Coumadin on hold due to likely GI bleed. likely resume once HnH is stable. CTA A/P noted. Prolonged QTc: avoid QT prolonging drugs. follow repeat EKG. Monitor and replete electrolytes. Other chronic medical conditions: Continue with/resume home meds as and when able history of sleep apnea nontolerant to CPAP history of mild CAD: holding Plavix for GI bleed. continue statin, Imdur and metoprolol succinate diabetes : a1c 5.4. cut back on Lantus to 15 units twice daily, sliding scale. glycemic pharmacy consult. close monitor hyperlipidemia: on statin mild intermittent asthma: continue home inhalers hypertension : continue Imdur, metoprolol succinate, lisinopril. diabetic neuropathy: c/w home pregabalin DVT prophylaxis: SCDs for now Full code. pt/ot cm to assist dc plan. spoke w/ pt's Julia over the home about 15 minutes, updated her each and every point as above, answered all her questions. Time spent evaluating patient, direct bedside care, chart review, placing orders, interpretation of diagnostic studies, discussion with consultants, patient, and family members, as well as other required patient management activities is __85__ minutes. Please note the above document was generated using voice recognition software. It may contain grammatical, syntax or spelling errors. Any formal questions or concerns about the content, text or information contained within the body of this dictation should be directly addressed to the undersigned for clarification. Admission and Anticipated Discharge Date Admission Date: September 17, 2023 Subjective Patient was seen and examined at bedside. Patient was lying in bed, on room air, NAD. Patient very upset and verbally aggressive at bedside exam. Patient is upset that there is frequent change in his doctors at hospital, explained him the reason that we switch every Saturday, he said he understands that but again he continues to be upset for the same reason. He is also upset why MRI is not being done to look at his retroperitoneal hematoma, explained him the CT scan is sufficient for the test, he did not want to believe and continues to be upset. He wants to be fixed right now, explained him the process of stabilizing/figuring out the root cause of anemia takes time. He continues to be upset creating tension environment during bedside exam. He reports no abd pain, is npo for concerns of likely GI bleed. He reports he has not moved bowel in 3 days. He reports improvement in his weakness but still get dizzy/weak when he stands up. He is getting blood transfusion as his blood level was 6.7 in the morning. Physical Exam Physical Exam: General- Not in distress Head- atraumatic Eyes- PERRL. ENT- oropharynx clear Neck- supple, no JVD Lungs- clear to auscultation no wheezing or crackles. Heart- regular rate and rhythm; no murmur, no gallop. Abdomen- normal bowel sounds, soft, nontender, no distension. Extremities- mild pretibial edema present , no erythema seen. Neuro- alert, oriented ,PERRL, no facial palsy; no dysarthria; moves extremities. Results & Data Results & Data Vital Signs (Past 12 Hours) Vital Signs Temp Pulse Pulse Resp BP BP Pulse Ox 09/18/23 16:00 75 09/18/23 16:00 36.8 C 75 18 169/75 H 09/18/23 15:00 36.7 C 85 159/92 H 96 09/18/23 14:30 36.7 C 70 125/67 95 09/18/23 14:15 36.7 C 75 16 95 09/18/23 14:00 36.7 C 82 16 144/56 H 94 09/18/23 13:06 36.7 C 85 16 136/54 L 93 05/29/24 11:36 36.4 C L 80 16 154/89 H 09/18/23 10:36 36.4 C L 77 18 154/49 H 96 09/18/23 10:06 36.4 C L 68 16 139/65 93 09/18/23 09:51 36.8 C 79 16 126/83 93 09/18/23 09:35 36.8 C 74 12 136/66 95 09/18/23 07:33 36.8 C 75 18 143/57 H 96 O2 Del Method 09/18/23 16:00 09/18/23 16:00 09/18/23 15:00 09/18/23 14:30 09/18/23 14:15 09/18/23 14:00 09/18/23 13:06 09/18/23 11:36 09/18/23 10:36 09/18/23 10:06 09/18/23 09:51 09/18/23 09:35 09/18/23 07:33 Room Air
[2023-09-18] MEDS ORDERED: Nursing to Pharmacy Communication SCH (17:15)
[2023-09-18 21:02] LABS: Hematocrit (blood only) 26.5 % (42.0-52.0); Hemoglobin 8.7 g/dl (14.0-18.0)
--- NOTE | 2023-09-18 23:09 | Communication Note ---
Date of Service: September 18, 2023 Patient complained to RN of painful lump in the testicular area noticed during evening bath. PPE Soft, movable, mildly tender subcutaneous lump, posterior scrotum AP Scrotal subcutaneous tumor (?lipoma) Urology consult in a.m.
[2023-09-19 05:05] LABS: Hematocrit (blood only) 26.3 % (42.0-52.0); Hemoglobin 8.7 g/dl (14.0-18.0); Mean Corpuscular Hemoglobin 31.5 pg (25.0-34.0); Mean Corpuscular Hgb Conc 33.1 g/dL (32.0-36.0); Mean Corpuscular Volume 95.3 fL (80.0-100.0); Mean Platelet Volume 11.9 fL (9.4-12.4); Nucleated RBC # (auto) 0.02 K/uL (0.00-0.12); Nucleated RBC % (auto) 0.2 %; Platelet Count 243 K/uL (130-400); RDW Standard Deviation 61.6 fL (36.4-46.3); Red Blood Count 2.76 M/uL (4.70-6.10); White Blood Count 10.24 K/ul (4.8-10.8)
[2023-09-19 05:09] LABS: BUN Creatinine Ratio 15.9 (10-20); Calcium 8.6 mg/dl (8.6-10.3); Creatinine Clr Calc Pharmacy 141.3 ml/min; Est GFR (African American) 112.2 ml/min; Est GFR (Non-African American) 96.8 ml/min; Magnesium 1.8 mg/dl (1.7-2.4); Phosphorus 2.5 mg/dl (2.5-4.9); Potassium 3.4 mmol/L (3.5-5.1)
[2023-09-19 05:17] LABS: INR 1.1 (0.9-1.1); Prothrombin Time 11.4 Seconds (9.0-12.0)
[2023-09-19] MEDS: MAGNESIUM SULFATE / D5W 1 GM/100 ML BAG IV ONE (06:44)
[2023-09-19] MEDS: POTASSIUM CHLORIDE CRTAB 20 MEQ TABCR PO STA ×2 (06:45→08:28)
--- NOTE | 2023-09-19 07:41 | Electrocardiogram Report ---
Test Reason : Blood Pressure : / mmHG Vent. Rate : 072 BPM Atrial Rate : 072 BPM P-R Int : 162 ms QRS Dur : 162 ms QT Int : 452 ms P-R-T Axes : 053 -25 026 degrees QTc Int : 494 ms Normal sinus rhythm Right bundle branch block Abnormal ECG When compared with ECG of 16-SEP-2023 21:37, Premature ventricular complexes are no longer Present Confirmed by Mauricio Cheney ([id number]) on 09/19/2023 7:41:00 AM Referred By: REFERRED SELF Confirmed By:Mauricio Cheney
[2023-09-19] MEDS ORDERED: POLYETHYLENE (MIRALAX) 17 GM PACK PO PRN (07:52)
[2023-09-19] MEDS: FERROUS SULFATE 325 MG TAB PO SCH (08:18)
[2023-09-19] MEDS: CYANOCOBALAMIN (B-12) 500 MCG TABLET PO SCH (08:19)
[2023-09-19] MEDS: FOLIC ACID 1 MG TAB PO SCH (08:19)
[2023-09-19] MEDS: POTASSIUM CHLORIDE CRTAB 20 MEQ TABCR PO ONE (08:37)
--- NOTE | 2023-09-19 10:33 | Ultrasound Report ---
TESTICULAR ULTRASOUND HISTORY: scrotal mass, COMPARISON: None. FINDINGS: Right testis: 44 x 20 x 32 mm. There are few scattered microcalcifications. There are no intratesticu lar masses. Normal color flow. A 2 mm right epididymal head cyst. Small slightly complex hydrocele. Left testis: 44 x 23 x 30 mm. There are few scattered microcalcifications. There are no intratesticul ar masses. Normal color flow. Small complex hydrocele. A 3 mm left epididymal head cyst. Miscellaneous: Within the right posterior scrotum there is a 38 x 23 x 14 mm complex subcutaneous flu id collection with surrounding color flow. This favors an abscess. IMPRESSION: 1. 38 x 23 x 14 mm complex subcutaneous fluid collection within the right posterior scrotum. This fav ors an abscess. 2. Small complex bilateral hydroceles. 3. Small bilateral epididymal head cysts. 4. No testicular masses. ACT 112: Negative or not required by law. Electronically signed by: Joe Bravo M.D. 09/19/2023 10:32 AM
[2023-09-19] MEDS ORDERED: VANCOMYCIN CONSULT ACTIVE PRN (11:12)
[2023-09-19] MEDS: PIPERACILLIN/TAZOBACTAM 4.5 GM in DEXTROSE 5% MINI-B 100 ML IV ONE (11:33)
--- NOTE | 2023-09-19 11:51 | Pharmacy Report ---
Pharmacy PK ABX Note - Date of Service September 19, 2023 - Assessment and Plan Assessment * 58 year old M admitted on 09/15 for symptomatic anemia. Patient had been receiving empiric Zosyn x 48 hrs for leukocytosis - last dose infused last evening. New orders to restart Zosyn and begin Vancomycin IV for treatment of SSTI. * Pertinent microbiologic data includes: BLCXs no growth to date (I confirmed this with Micro as their instrument had initially detected bacteria however this was not confirmed microscopically and BCID2 was negative), UA from 09/16 no indicative of UTI, afebrile, Procal negative on admit (not repeated), leukocytosis resolved (but was receiving Zosyn last 2 days) * Overnight hospitalist noted pt had painful scrotal lump, US read as possible abscess. Of note, pt does have h/o nec fasciitis. Has h/o ps aeruginosa of L thigh in past cx's * Day # 1 of vancomycin, Day # 3 Zosyn. Plan Vancomycin * Loading dose: 2750 mg IV x 1 * Maintenance dose: 1500 mg IV every 12 hours * Regimen is predicted to achieve target AUC/MIGUEL of 400-600 mg/L.hr * Trough level ordered for tomorrow AM to help guide therapy given less predictability in setting of BMI > 40 Pharmacy will continue to follow and will adjust dose/frequency as necessary. Thank you. Pharmacy has transitioned to AUC monitoring for vancomycin. AUC/MIGUEL is the preferred PK/PD target and is associated with decreased risk of nephrotoxicity compared to traditional trough targets.
--- NOTE | 2023-09-19 12:02 | Urology Consultation ---
Date of Consultation September 19, 2023 Assessment & Plan (1) Scrotal abscess: Plan 58yo/M admitted with symptomatic anemia. Urology was consulted for painful scrotal mass. Pt afebrile and hemodynamically stable. Labs today show no leukocytosis, hemoglobin 8.7, creatinine 0.82. Blood cultures prelim no growth. He is on Zosyn and Vanco. Scrotal ultrasound imaging this morning notable for a subcutaneous fluid collection within the right posterior scrotum favoring an abscess Discussed recommendation to proceed to OR for drainage - Pt is agreeable Plan for OR today for scrotal exploration, incision and drainage of scrotal abscess with Dr. Connell Risks and benefits to be reviewed with patient by Dr. Connell Keep NPO Continue broad spectrum antibiotics Urology will follow Attending note: Patient independently assessed, examined, interviewed, and evaluated. The patient has had multiple episodes of abscesses but did also have a significant episode of likely foreign years gangrene versus necrotizing fasciitis of the groin and inguinal region. Has had many years of issues dealing with recurrent skin infections. Has morbid obesity with diabetes and issues with wound healing. White count today was 10.24. Creatinine was 0.82. Hemoglobin had been 8.7. This has been stabilizing with the patient's improvement over time after the monitoring for the upper GI bleed. Patient is on broad-spectrum antibiotics. Imaging was reviewed interpreted by myself has approximately 4 cm fluid collection with debris and possible abscess collection. Had the surrounding stranding consistent with inflammatory changes Agree with note as above. Patient's vitals and labs were all reviewed. Pertinent values in the HPI and plan section. Imaging was reviewed interpreted by myself. Agree with read. Vitals were reviewed. Discussed findings extensively with patient and family. Reviewed with nurse practitioner as well as consulting physicians/team. Patient's complicated medical and surgical history was reviewed and summarized above. Patient's surgical, medical, social, and family history were all reviewed with pertinent values as above. Discussed patient's current diagnosis as well as concerns and issues. Reviewed different options moving forward. Discussed potential risks and benefits as well as possible options and concerns. Reviewed potential surgical options and interventions. Discussed potential issues and concerns related to intervention. Risk and benefits were discussed extensively with patient and any available family. Discussed potential risks related to anesthesia. Discussed risks of bleeding infection and injury. Extensive review of risk and benefits of the procedure including possible bleeding infection. Discussed major concerns related to the patient's previous necrotizing fasciitis and potential development of worsening infection with possible development of fasciitis if left undrained and manage. IV antibiotics have likely been holding the infection to controlled however based on the imaging does not appear to be completely resolving on its own. Will likely need washout drainage and healing by secondary intent. Extensively reviewed healing postoperatively. Discussed expectations and recovery. Discussed concerns and issues. Patient was agreeable all questions were answered. Understood risk and benefits moving forward especially related to infection and bleeding. Reviewed extensively options otherwise. Will plan for close monitoring. Will have patient follow-up with monitoring after procedure. Patient's complicated medical and surgical history was reviewed and summarized as above all imaging was reviewed interpreted by myself. All labs and vitals reviewed with pertinent values in the HPI or plan section. Patient is currently afebrile. Has been n.p.o. since this morning Risks and benefits discussed at length for procedure. These include bleeding, infection, injury to surrounding tissues or organs, and risks associated with anesthesia. Patient states understanding and agrees to proceed. Will sign consent and proceed. Plan for Excision/Drainage of Scrotal Abscess. History of Present Illness Attending Physician: Dayana Araujo MD History of Present Illness 58-year-old male with past medical history significant type 2 diabetes, hyperlip idemia, diabetic polyneuropathy, obstructive sleep apnea, mild intermittent asthma, peripheral vascular disease, paroxysmal supraventricular tachycardia, mild CAD, hypertension, obesity, ongoing tobacco abuse admitted to medicine service with symptomatic anemia and suspected GI bleed. On arrival patient was noted to have a leukocytosis of 17, hemoglobin 7.2, and an ANUEL of 1.5. Urinalysis without signs of infection or blood. Per chart review, an EGD was performed without clear cause. H/H dropped to 6.7/21.0 after EGD on 09/17/23. Patient was transfused with 2units PRBC. 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 On 09/19/23 patient reported a painful scrotal mass and urology was asked to evaluate patient. A scrotal ultrasound was obtained and demonstrated subcutaneous fluid collection within the right posterior scrotum favoring an abscess. Scrotal Ultrasound 09/19/23 - 1. 38 x 23 x 14 mm complex subcutaneous fluid collection within the right posterior scrotum. This favors an abscess. 2. Small complex bilateral hydroceles. 3. Small bilateral epididymal head cysts. 4. No testicular masses. Patient was seen at bedside this morning. Awake, resting in bed on arrival. No acute distress. He reports a Hx of necrotizing fasciitis. Also notes a history of abscesses that he has self drained. Denies fevers or chills. Voiding spontaneously. Denies hematuria or dysuria. Denies prior hx Allergies Allergy/AdvReac Type Severity Reaction Status Date / Time metformin AdvReac Severe SEVERE Verified 09/17/23 13:28 DIARRHEA adhesive AdvReac Intermediate Blister Verified 09/17/23 13:28 Home Medications Medication Instructions Recorded Confirmed Type atorvastatin 40 mg tablet 40 mg PO QAM 06/16/22 09/17/23 History clopidogrel 75 mg tablet 75 mg PO QAM 06/16/22 09/17/23 History insulin aspart U-100 100 unit/mL 12 - 15 unit subcut TIDWMEAL 06/16/22 09/17/23 History (3 mL) subcutaneous pen insulin glargine 100 unit/mL (3 45 unit subcut QAM 06/16/22 09/17/23 History mL) subcutaneous pen (Lantus Solostar U-100 Insulin) insulin glargine 100 unit/mL 17 unit subcut HS 06/16/22 09/17/23 History subcutaneous solution (Lantus U-100 Insulin) lisinopril 40 mg tablet 40 mg PO QAM 06/16/22 09/17/23 History metoprolol succinate 50 mg 50 mg PO QAM 06/16/22 09/17/23 History tablet,extended release 24 hr warfarin 10 mg tablet 15 - 20 mg PO UD 06/16/22 09/17/23 History isosorbide mononitrate 30 mg 30 mg PO QAM #30 tabs 06/29/22 09/17/23 Rx tablet,extended release 24 hr albuterol sulfate 90 mcg/actuation 2 inh inhalation BID PRN Wheezing 11/05/22 09/17/23 History aerosol inhaler nitroglycerin 0.4 mg sublingual 0.4 mg sublingual Q5M PRN Chest 03/22/23 09/17/23 History tablet (Nitrostat) Pain pregabalin 75 mg capsule 75 mg PO AMHS 09/17/23 09/17/23 History Patient History Medical History Neuropathy Aortoiliac occlusive disease PVD (peripheral vascular disease) Diabetic neuropathy T2DM (type 2 diabetes mellitus) IDDM Morbid obesity HLD (hyperlipidemia) HTN (hypertension) Hx of necrotising fasciitis 01/26/23, hospitalized for 1 month (still living in [place] at the time), hx abscesses that he self drained, had one that was he unable to manage>became septic area [id number] Hx of basal cell carcinoma Hx of migraines Arthritis Depression no meds PVD (peripheral vascular disease) unable to ambulate more than 25 feet without requiring his wheelchair or rollator/walker; always uses w/c outside of home V tach hx of > last episode 10/2022 > took nitro Atrial fibrillation no pacer > dx Feb 2022 > follows with Dr. Jacobson History of COVID-2020 > not hospitalized>no residual symptoms Chronic obstructive pulmonary disease uses res inh approx 4x day Hx of deep venous thrombosis Feb 2022 > bilat legs > due to neuropathy/diabetes > Warfarin/plavix MEETA (obstructive sleep apnea) not on cpap or O2 Surgical History Hx of skin graft lt leg S/P excisional debridement x4, left leg due to necrotising fascitis Hx of basal cell carcinoma excision History of hip surgery as child, left hip History of tooth extraction History of tonsillectomy History of cardiac cath x several, no stents, last one June 2022 at [facility], no stents "chasing blood clots to make sure none had entered his heart" Hx of laminectomy L3-S1 Family History Other Cancer Diabetes Family history of blood clots Heart disease Social History Smoking Status: Current every day smoker Tobacco Type: Cigars Cigarettes Per Day: 2-3; Second Hand Exposure: No; Do You Dip or Chew Tobacco: No; Hx Alcohol Use: No Hx Substance Use: Yes Prescribed Medications: Marijuana Last Used Substance: Days (ago) Last Used Substance Other:: 03/21/23, daily Substance Use Type Other:: uses daily > not medical card Preferred Language: Burkinan Communication Ability: Effective Visual Impairment: Limited Hearing Ability: Hard of Hearing Jinrikisha Driver Required: No Beliefs That Will Affect Care: None marital status: marital status details: but currently going through divorce Current Living Situation: Spouse Current Living Situation Comment: pt states he and his are in the process of current occupational status: unemployed How many Children do You have: 2 How many Children do You have Comment: son is involved with care and able to assist with care as needed (son lives 30 minutes from pt) Feels Safe at Home: Yes Safety Concerns: Feels Safe At This Time Diet: regular Diet Comment: tries to pay attention to what he eats regarding diabetes. during the past year weight has: increased > 10 lbs Assistive Devices: Walker Review of Systems Review of Systems: All systems reviewed & are unremarkable except as noted in HPI & below Physical Exam Constitutional: no acute distress Neck: normal visual inspection Respiratory: no respiratory distress and no labored breathing Musculoskeletal: Head/Neck/Chest: normocephalic Neurologic: moves all extremities and awake Psychiatric: A+Ox3, euthymic affect Genitourinary: Fluctuant mass to posterior scrotum with small amount of purulent drainage. No significant erythema or edema noted. Mild tenderness with palpation. No areas of eschar. No crepitus. Results & Data Vital Signs (Past 12 Hours) Vital Signs Temp Pulse Pulse Resp BP Pulse Ox O2 Del Method 09/19/23 11:27 36.7 C 69 18 144/80 H 97 Room Air 09/19/23 08:15 Room Air 09/19/23 07:23 36.9 C 63 18 145/69 H 96 Room Air 09/19/23 05:00 36.9 C 60 16 147/68 H 95 Room Air 09/19/23 02:00 70 17 Room Air 09/19/23 00:00 77 13 09/19/23 00:00 95 H PG Care Time/CCT Total # of Minutes Spent Total Time Spent with Patient: Total time spent is greater than 50% in coordination of care (as documented) at patient's floor/unit and/or counseling patient: Coding Level of Care Code 74195 IN/OBS CONSULT LVL 5,80M Diagnoses Scrotal abscess N49.2
[2023-09-19] MEDS: VANCOMYCIN HCL 2,750 MG in SODIUM CHLORIDE 0.9% 500 ML IV ONE (12:05)
--- NOTE | 2023-09-19 12:24 | Electrocardiogram Report ---
Test Reason : Blood Pressure : / mmHG Vent. Rate : 067 BPM Atrial Rate : 065 BPM P-R Int : 162 ms QRS Dur : 150 ms QT Int : 454 ms P-R-T Axes : 128 -11 016 degrees QTc Int : 479 ms Poor data quality, interpretation may be adversely affected Sinus rhythm with frequent Premature ventricular complexes Right bundle branch block Abnormal ECG When compared with ECG of 18-SEP-2023 17:51, Premature ventricular complexes now present Confirmed by Mauricio Cheney ([id number]) on 09/19/2023 12:24:30 PM Referred By: REFERRED SELF Confirmed By:Mauricio Cheney
--- NOTE | 2023-09-19 14:38 | Anesthesiology Consultation ---
Date of Service September 19, 2023 Assessment & Plan (1) Encounter for pre-operative examination: Chart Review Chart Review: Acceptable Risk for Surgery (urgent) History Surgery Operation Date: 09/17/23 16:45 Proposed Procedures p Esophagogastroduodenoscopy Dr Robins - Bowen Robins, DO Operation Date: 09/19/23 13:20 Proposed Procedures p Scrotal Exploration and Excision and Drainage of Abscess - Vishal Connell DO Height/Weight Height: 5 ft 9 in Weight: 151.7 kg Allergies Allergy/AdvReac Type Severity Reaction Status Date / Time metformin AdvReac Severe SEVERE Verified 09/17/23 13:28 DIARRHEA adhesive AdvReac Intermediate Blister Verified 09/17/23 13:28 Medications Home Medications Medication Instructions Recorded Confirmed Last Taken atorvastatin 40 mg tablet 40 mg PO QAM 06/16/22 09/17/23 09/16/23 clopidogrel 75 mg tablet 75 mg PO QAM 06/16/22 09/17/23 09/16/23 insulin aspart U-100 100 unit/mL 12 - 15 unit subcut TIDWMEAL 06/16/22 09/17/23 09/16/23 (3 mL) subcutaneous pen insulin glargine 100 unit/mL (3 45 unit subcut QAM 06/16/22 09/17/23 09/16/23 mL) subcutaneous pen (Lantus Solostar U-100 Insulin) insulin glargine 100 unit/mL 17 unit subcut HS 06/16/22 09/17/23 09/15/23 subcutaneous solution (Lantus U-100 Insulin) lisinopril 40 mg tablet 40 mg PO QAM 06/16/22 09/17/23 09/16/23 metoprolol succinate 50 mg 50 mg PO QAM 06/16/22 09/17/23 09/16/23 tablet,extended release 24 hr warfarin 10 mg tablet 15 - 20 mg PO UD 06/16/22 09/17/23 09/13/23 isosorbide mononitrate 30 mg 30 mg PO QAM #30 tabs 06/29/22 09/17/23 09/16/23 tablet,extended release 24 hr albuterol sulfate 90 mcg/actuation 2 inh inhalation BID PRN Wheezing 11/05/22 09/17/23 09/16/23 aerosol inhaler nitroglycerin 0.4 mg sublingual 0.4 mg sublingual Q5M PRN Chest 03/22/23 09/17/23 09/16/23 tablet (Nitrostat) Pain pregabalin 75 mg capsule 75 mg PO AMHS 09/17/23 09/17/23 09/16/23 Active Medications Generic Name Dose Route Start Last Admin Trade Name Freq PRN Reason Stop Dose Admin Atorvastatin Calcium 40 mg 09/17/23 09:00 09/19/23 08:19 Atorvastatin 40 Mg Tab PO 10/17/23 08:59 40 mg QAM PATSY Administration Cyanocobalamin 500 mcg 09/19/23 09:00 09/19/23 08:19 Cyanocobalamin (B-12) 500 Mcg Tablet PO 10/19/23 08:59 500 mcg QAM PATSY Administration Ferrous Sulfate 325 mg 09/19/23 09:00 09/19/23 08:18 Ferrous Sulfate 325 Mg Tab PO 10/19/23 08:59 325 mg QAM PATSY Administration Folic Acid 1 mg 09/19/23 09:00 09/19/23 08:19 Folic Acid 1 Mg Tab PO 10/19/23 08:59 1 mg QAM PATSY Administration Hydromorphone HCl 1 mg 09/17/23 08:34 09/19/23 04:09 Hydromorphone Inj 1 Mg/Ml Syringe IV 10/01/23 08:33 1 mg Q6H PRN Administration Pain Pantoprazole Sodium 40 mg/ 100 mls @ 20 mls/hr 09/17/23 05:21 09/19/23 12:13 Dextrose IV 10/17/23 05:20 20 mg/hr Q5H PATSY 50 mls/hr Administration 8 MG/HR Dextrose/Sodium Chloride 1,000 mls @ 60 mls/hr 09/18/23 08:30 09/19/23 03:22 D5w And 1/2nss IV 09/19/23 17:49 60 mls/hr .[id number] PATSY Administration Vancomycin HCl 2,750 mg/ 555 mls @ 180 mls/hr 09/19/23 12:00 09/19/23 12:05 Sodium Chloride IV 09/19/23 15:04 180 mls/hr ONE ONE Administration Insulin Aspart 0 units 09/18/23 17:08 09/19/23 11:39 Insulin Aspart Per Unit Charge SC 10/18/23 17:07 Not Given ACHS [facility] Insulin Glargine 0 units 09/17/23 21:00 09/19/23 08:36 Lantus Per Unit Charge SQ 10/17/23 20:59 Not Given BID [facility] Protocol Isosorbide Mononitrate 30 mg 09/17/23 09:00 09/19/23 08:19 Isosorbide [place] Extended Rel 30 Mg Tabcr PO 10/17/23 08:59 30 mg QAM PATSY Administration Lisinopril 40 mg 09/18/23 09:00 09/19/23 08:18 Lisinopril 40 Mg Tab PO 10/18/23 08:59 40 mg QAM PATSY Administration Metoprolol Succinate 50 mg 09/17/23 09:00 09/19/23 08:19 Metoprolol Succ 50mg Ext Rel Tab PO 10/17/23 08:59 50 mg QAM PATSY Administration Oxycodone HCl 5 mg 09/17/23 08:34 09/17/23 16:55 Oxycodone Hcl Ir 5 Mg Tab (Immediate Release) PO 10/01/23 08:33 5 mg Q4H PRN Administration Moderate Pain (Scale 4, 5, 6) Pregabalin 75 mg 09/17/23 09:00 09/19/23 08:21 Pregabalin 75 Mg Cap PO 10/17/23 08:59 75 mg AMHS PATSY Administration NPO Date Last Intake of Fluids: 09/17/23 Time Last Intake of Fluids: 08:00 Last Intake of Fluids Comment: sips with meds Date Last Intake of Solids: 09/16/23 Time Last Intake of Solids: 15:00 Past Medical History Medical History Neuropathy Aortoiliac occlusive disease PVD (peripheral vascular disease) Diabetic neuropathy T2DM (type 2 diabetes mellitus) IDDM Morbid obesity HLD (hyperlipidemia) HTN (hypertension) Hx of necrotising fasciitis 01/26/23, hospitalized for 1 month (still living in [place] at the time), hx abscesses that he self drained, had one that was he unable to manage>became septic area [id number] Hx of basal cell carcinoma Hx of migraines Arthritis Depression no meds PVD (peripheral vascular disease) unable to ambulate more than 25 feet without requiring his wheelchair or rollator/walker; always uses w/c outside of home V tach hx of > last episode 10/2022 > took nitro Atrial fibrillation no pacer > dx Feb 2022 > follows with Dr. Jacobson History of COVID-2020 > not hospitalized>no residual symptoms Chronic obstructive pulmonary disease uses res inh approx 4x day Hx of deep venous thrombosis Feb 2022 > bilat legs > due to neuropathy/diabetes > Warfarin/plavix MEETA (obstructive sleep apnea) not on cpap or O2 Past Family History Family History Other Cancer Diabetes Family history of blood clots Heart disease Past Surgical History Surgical History Hx of skin graft lt leg S/P excisional debridement x4, left leg due to necrotising fascitis Hx of basal cell carcinoma excision History of hip surgery as child, left hip History of tooth extraction History of tonsillectomy History of cardiac cath x several, no stents, last one June 2022 at [facility], no stents "chasing blood clots to make sure none had entered his heart" Hx of laminectomy L3-S1 Social History Smoking Status: Current every day smoker tobacco type: cigarettes Smoking cigarettes per day: 2-3 Do You Dip or Chew Tobacco: No Hx Alcohol Use: No Alcohol type: beer alcohol intake frequency: holidays/special occasions only Hx Substance Use: Yes substance use type: marijuana and prescription drug Substance Use Type Other:: uses daily > not medical card Last Used Substance: Days (ago) Last Used Substance Other:: 03/21/23, daily Physical Exam Vital Signs Last Vital Signs Temp 36.7 C 09/19/23 11:27 Pulse 69 09/19/23 11:27 Resp 18 09/19/23 11:27 BP 144/80 H 09/19/23 11:27 Pulse Ox 97 09/19/23 11:27 O2 Del Method Room Air 09/19/23 11:27 Testing Laboratory Results 09/19/23 04:25 09/19/23 04:25 PT 11.4 Seconds (9.0-12.0) 09/19/23 04:25 INR 1.1 (0.9-1.1) 09/19/23 04:25 Hemoglobin A1c 5.4 % (4.5-5.6) 09/17/23 08:59 Urine Color Yellow 09/17/23 00:00 Urine Appearance Clear (Clear) 09/17/23 00:00 Urine pH 5.0 (4.5-7.5) 09/17/23 00:00 Ur Specific [place] 1.017 (1.000-1.030) 09/17/23 00:00 Urine Protein 1+ (Negative) H 09/17/23 00:00 Urine Glucose (UA) Negative (Negative) 09/17/23 00:00 Urine Ketones Trace (Negative) H 09/17/23 00:00 Urine Nitrite Negative (Negative) 09/17/23 00:00 Ur Leukocyte Esterase 1+ (Negative) H 09/17/23 00:00 Urine WBC (Auto) 0-5 /hpf (0-5) 09/17/23 00:00 Urine RBC (Auto) 0-2 /hpf (0-2) 09/17/23 00:00 U Hyaline Cast (Auto) 11-20 /lpf (0-2) H 09/17/23 00:00 U Epithel Cells (Auto) 0-2 /hpf (0-2) 09/17/23 00:00 Urine Bacteria (Auto) None Seen (None Seen) 09/17/23 00:00 Blood Type A Positive 09/17/23 00:02 Antibody Screen NEGATIVE 09/17/23 00:02 09/17/23 00:02 Aerobic Blood Culture - Preliminary Blood No growth in Aerobic bottle after 48 hours. Anaerobic Blood Culture - Preliminary No growth in Anaerobic bottle after 48 hours. 09/17/23 00:14 Aerobic Blood Culture - Preliminary Blood No growth in Aerobic bottle after 48 hours. Anaerobic Blood Culture - Final 09/19/23 09/19/23 10:51 07:14 POC Glucose 137 H 104 H Electrocardiogram Date: 09/19/23 Findings: + NSR @ (67 with PVC's) and + RBBB Echocardiogram Date: 09/17/23 EF: 50-55% Valvular Disease: + no significant valvular disease
[2023-09-19] MEDS ORDERED: ROCURONIUM BROMIDE 10 MG/ML 5 ML VIAL IV ONE (15:01)
[2023-09-19] MEDS ORDERED: fentaNYL citrate PF 100 MCG/2 ML VIAL ONE (15:01)
[2023-09-19] MEDS ORDERED: PROPOFOL IV EMULSION 10 MG/ML 20 ML VIAL IV ONE (15:01)
[2023-09-19] MEDS ORDERED: ONDANSETRON INJ 2 MG/ML 2 ML VIAL ONE (15:01)
[2023-09-19] MEDS ORDERED: LIDOCAINE 2% 2 ML VIAL/AMP(20MG/ML) INFIL ONE (15:01)
[2023-09-19] MEDS ORDERED: MIDAZOLAM HCL 1 MG/ML 2ML VIAL ONE (15:01)
[2023-09-19 15:12] LABS: Hematocrit (blood only) 28.2 % (42.0-52.0); Hemoglobin 9.2 g/dl (14.0-18.0)
[2023-09-19] MEDS: ALBUT/IPRATROP 3MG/0.5MG NEB 3 ML VIAL NEB STA (15:21)
[2023-09-19] MEDS ORDERED: ONDANSETRON INJ 2 MG/ML 2 ML VIAL IV PRN (15:30)
[2023-09-19] MEDS ORDERED: ePHEDrine sulfate 50 MG/ML AMP IV PRN (15:30)
[2023-09-19] MEDS ORDERED: ATROPINE SULFATE 0.1 MG/ML 10ML SYR IV PRN (15:30)
[2023-09-19] MEDS ORDERED: SUCCINYLCHOLINE CHLORIDE 20 MG/ML 10 ML VIAL IV ONE (15:57)
[2023-09-19] MEDS ORDERED: SUGAMMADEX SODIUM 200 MG/2 ML VIAL IV ONE (16:33)
[2023-09-19] MEDS: LIDOCAINE 1% LOCAL 20 ML VIAL ONE (16:49)
[2023-09-19] MEDS: DAKIN'S SOLN 0.5% FULL STRENGTH 473ML BTL EXT ONE (16:49)
--- NOTE | 2023-09-19 16:59 | Operative Report ---
PG Post Operative Report Pre & Post Diagnosis Operation Date: 09/19/23 13:20 Pre-Op Diagnosis: Scrotal Abscess Post-Op Diagnosis: Scrotal Abscess I identified the patient and participated in the time-out.: Yes Procedure Operation Date: 09/19/23 13:20 Actual Procedures Midline Scrotal Exploration, Excision and Drainage of Abscess; aspiration of abscess. washout of wound. Excisional debridement of abscess cavity. - Vishal Connell, Surgeon Vishal Connell, II, DO Rcis None Estimated Blood Loss 10 Findings Consistent with Post-Op Diagnosis Large abscess of the scrotal wall along the posterior edge at the junction with the perineum. Abscess ran along the median raphae on the posterior scrotum largely in the subcutaneous tissues. Dusky appearing tissue on the apex of the lesion with 2 independent spontaneously draining areas of minimal purulence with large area of fluctuation and central pocket of fluctuant fluid. Moderate induration and inflammation around the edges. Elliptical excision of the dusky appearing tissue on the apex of the abscess. Possible fat necrosis and abscess cavity/cystic wall deep within the tissue. Tracking along the right hemiscrotum and posteriorly along the midline. Significant loculations within the wound. Final wound dimensions were an elliptical opening 4.2 x 0.9 cm. Wound depth was 4.3 cm with a area of tracking 5.4 cm posteriorly and superiorly. Specimens Abscess cavity/elliptical skin debridement. Aspiration of purulent material Swab for deep wound cultures x 2 Drains Half-inch iodoform packing Anesthesia Type General Complications none Disposition Disposition: Recovery Room Indications Bothersome scrotal abscess/fluid collection with significant history of necrotizing fasciitis and severe abscesses in the groin and scrotal region. Patient is admitted with a upper GI bleed with significant anemia. Had been on broad-spectrum antibiotics with worsening fluid collection and discomfort and pain. Risks and benefits discussed at length. Description of Procedure Patient was consented and brought back to the operating room. Patient was placed under anesthesia in the supine position. Patient was prepped and draped in the regular sterile fashion. A time out was completed. With the time out completed and the patient prepped, the large abscess on the posterior scrotum was marked. The abscess appeared to be right along the median raphe which was was marked for an elliptical excision of the overlying skin tissue which had a somewhat dusky appearance. Along the edges of the posterior scrotum and junction with the perineum, 1% lidocaine plain local was injected into the subcutaneous tissues. The scrotum was retracted in order to allow better visualization of the area. Initially the incision length was approximately 4 cm. Significant fluctuance was noted in the abscess tissue. A 18-gauge needle was used to aspirate fluid from the abscess cavity. This was sent for culture. An elliptical incision was made with a scalpel and the abscess cavity was entered with a significant amount of drainage. The skin edges appear to be freely bleeding without major issue. Within the deep portion of the cavity significant loculations were noted. The wound was probed and loculations were destroyed and freed. The deep portion also had a somewhat irregular appearance within the fatty tissue. Likely abscess cavity wall versus early necrosis versus other issues were noted. This tissue was able to be dissected free and debrided. Excisional debridement was then completed to clear this tissue and allow freely bleeding and healthier appearing tissue to be exposed. Sharp dissection was utilized. The wound was further probed and some areas of tracking were noted going superiorly on the right and posteriorly along the midline. The areas were opened up and additional pockets of fluid were able to be drained. Deep tissues were dissected with bovie electrocautery and all bleeding was controlled using the cautery. Deep wound swabs were taken and sent for culture analysis. 2 times wound swabs were completed. The tissue that had been debrided and excised was sent for pathologic analysis. The wound itself was in the subcutaneous tissues and did not track into the hemiscrotum directly. The testicle on both sides were able to be monitored and no significant involvement of the deeper scrotal tissue was noted. The wound was then washed out using a vancomycin solution. A Pulsavac irrigatio n system was utilized in order to further flush out the wound. All bleeding was controlled. The wound was then further assessed. No other additional areas or pockets of fluid or abscess fluid were noted. No additional loculations. The more irregular tissue and questionable tissue had been debrided and freely bleeding and healthy appearing tissue had been exposed. The wound itself was assessed the edges were found to have some minor areas of bleeding which were controlled with cautery. The skin wound was irrigated a final time. The final wound dimensions were measured. Iodoform packing was selected and the wound was packed ensuring that the areas of tracking in the deepest portions of the wound were able to be adequately packed using the half-inch iodoform packing. The 2 ends of the packing were maintained outside of the wound. The area was then cleaned. The scrotum was irrigated and all bleeding controlled. The edges of the hydrocele sac were then oversewn behind the testicle. A scrotal support was placed with dressings. The patient was cleaned, aroused from anesthesia, and transferred to the pacu in stable condition having tolerated the procedure well with no complications. I was present and participated in all aspects of the procedure. Patient will be monitored on the floor. Will order wound care for wound packing management. Will plan to have the wound closed by secondary intent. Patient can plan to follow-up with wound care for continued management of wounds I attest to the content of the Intraoperative Record and any orders documented therein. Any exceptions are noted below.
--- NOTE | 2023-09-19 17:09 | Anesthesiology Progress Note ---
Date of Service September 19, 2023 Anesthesia Post Procedure Vital Signs Vital Signs: Temp Pulse Pulse Resp BP BP BP 09/19/23 17:05 36.8 C 62 20 146/80 H 09/19/23 16:55 62 16 136/93 09/19/23 16:48 36.2 C L 76 12 145/94 H 09/19/23 15:33 67 20 135/65 09/19/23 15:21 65 15 09/19/23 11:27 36.7 C 69 18 144/80 H 09/19/23 08:15 09/19/23 07:23 36.9 C 63 18 145/69 H 09/19/23 05:00 36.9 C 60 16 147/68 H 09/19/23 02:00 70 17 09/19/23 00:00 77 13 09/19/23 00:00 95 H 09/18/23 23:10 173/60 H 09/18/23 23:10 73 17 09/18/23 22:00 70 20 09/18/23 21:00 09/18/23 20:00 79 23 09/18/23 19:57 161/67 H 09/18/23 19:57 72 21 09/18/23 19:55 71 18 09/18/23 19:00 68 14 Pulse Ox O2 Del Method O2 Flow Rate 09/19/23 17:05 95 Room Air 09/19/23 16:55 100 Oxymask 4 09/19/23 16:48 99 Oxymask 6 09/19/23 15:33 95 Room Air 09/19/23 15:21 95 Room Air 09/19/23 11:27 97 Room Air 09/19/23 08:15 Room Air 09/19/23 07:23 96 Room Air 09/19/23 05:00 95 Room Air 09/19/23 02:00 Room Air 09/19/23 00:00 09/19/23 00:00 09/18/23 23:10 09/18/23 23:10 94 Room Air 09/18/23 22:00 09/18/23 21:00 Room Air 09/18/23 20:00 09/18/23 19:57 09/18/23 19:57 09/18/23 19:55 95 09/18/23 19:00 Room Air Pain Intensity Abdomen: Pain Intensity: 3 Transfer of Care Handoff Completed per policy Notes Mental Status: alert / awake / arousable Patient Amnestic to Procedure: Yes Nausea / Vomiting: adequately controlled Pain: adequately controlled Airway Patency, RR, SpO2: stable & adequate BP & HR: stable & adequate Hydration State: stable & adequate Anesthetic Complications: no major complications apparent and Pt Satisfied with anesthetic care
[2023-09-19] MEDS: fentaNYL citrate PF 100 MCG/2 ML VIAL IV PRN (17:22)
--- NOTE | 2023-09-19 17:50 | Hospitalist Progress Note ---
Date of Service September 19, 2023 Assessment & Plan (1) Symptomatic anemia: Plan: 58-year-old male with PMH of type 2 diabetes c/w PDN, hyperlipidemia, obstructive sleep apnea nontolerant of the CPAP, mild intermittent asthma, peripheral vascular disease, paroxysmal supraventricular tachycardia, mild CAD, hypertension, obesity, ongoing tobacco abuse presents with progressive shortness of breath on minimal exertion and found to have anemia of hemoglobin of 7.2 and Hemoccult positive in the ER. Patient states lately getting short of breath which progressively got worse that now walking few steps making him short of breath. has Mild cough. Had an episode of vomiting [employer] but no blood in the vomitus. He had some chest heaviness and dizziness, blurry vision all s/s of symptomatic anemia. Stools has been dark since his colonoscopy this year. Normal micturition. He is being managed for the following: Symptomatic anemia Likely GI bleed, likely UGI bleed: FOBT +ve at ED, BUN elevated at presentation, came in w/ black stool complaints. Patient coming in with complaint of progressive shortness of breath/dizziness/blurry vision/chest heaviness ISO black his stool x few months. Admitting echo with EF of 50 to 55%, moderate aortic root dilatation [4.7 cm], no regional wall motion abnormality, mild concentric LVH. Admitting hemoglobin of 7.2, hemoglobin of around 12 May/June last year. MCV in high 90s, folate 10.51, vitamin B12 526. Iron 18 with transferrin saturation of 6 and ferritin of 15. T bili wnl. Admitting CXR and CT head with no acute finding. 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 No acute abnormalities to explain anemia. 09/16 EGD scope: Normal esophagus, small hiatal hernia, gastritis noted, no specimens collected. Normal examined duodenum. Patient reports he has no BM in last 4 days, hemoglobin 6.7 this a.m., continues to have weakness/dizziness in the morning. Increase bowel regimen. s/p 3 unit PRBC, follow H&H closely, continue telemetry monitoring, advance diet as tolerated. GI evaluated, appreciate recommendation. Recommends hematology consult if with persistent anemia. And plan for VCE as an outpatient. IV PPI to PO PPI, HnH has been stable. Will c/w iron supplement 09/17, c/w folic acid and b12 supplement. Repeat Iron profile in 3 months. PT/OT Scrotal abscess: lump at post wall of scrotum, imaged as [id number] mm abscess. s/p I and D by uro 09/18. c/w vanc 09/16 and zosyn 09/16, await 09/16 blood and 09/18 scrotal cx. ID consult. Acute kidney injury: Admitting creatinine of 1.51, likely prerenal secondary to anemia. Resolved. Chest heaviness: Likely from anemia, no further complaints today, serial enzymes negative, echo reviewed. Continue telemetry monitoring. If any concern, consult cardiology. Peripheral vascular disease: in February 2022 was found to have iliac stenosis with toe ulceration, Vacular surgery: no intervention was recommended but advised to start an oral anticoagulant. Seems since then on Coumadin, INR at presentation 1.8. Coumadin on hold due to likely GI bleed. likely resume once HnH is stable. CTA A/P noted. Prolonged QTc: avoid QT prolonging drugs. follow repeat EKG. Monitor and replete electrolytes. Other chronic medical conditions: Continue with/resume home meds as and when able history of sleep apnea nontolerant to CPAP history of mild CAD: holding Plavix for GI bleed. continue statin, Imdur and metoprolol succinate diabetes : a1c 5.4. cut back on Lantus to 15 units twice daily, sliding scale. glycemic pharmacy consult. close monitor hyperlipidemia: on statin mild intermittent asthma: continue home inhalers hypertension : continue Imdur, metoprolol succinate, lisinopril. diabetic neuropathy: c/w home pregabalin DVT prophylaxis: SCDs for now Full code. pt/ot cm to assist dc plan. Please note the above document was generated using voice recognition software. It may contain grammatical, syntax or spelling errors. Any formal questions or concerns about the content, text or information contained within the body of this dictation should be directly addressed to the undersigned for clarification. Admission and Anticipated Discharge Date Admission Date: September 17, 2023 Subjective Patient was seen and examined at bedside. Patient was lying in bed, on room air, NAD. Pt still in angry mode but heard the plans out well today. He reports no abd pain, noted scrotal abscess, npo for IandD later today per Uro. He reports he has not moved bowel in 4 days. c/w bowel regimen, advance diet. He reports improvement in his weakness. Physical Exam Physical Exam: General- Not in distress Head- atraumatic Eyes- PERRL. ENT- oropharynx clear Neck- supple, no JVD Lungs- clear to auscultation no wheezing or crackles. Heart- regular rate and rhythm; no murmur, no gallop. Abdomen- normal bowel sounds, soft, nontender, no distension. Extremities- mild pretibial edema present , no erythema seen. Neuro- alert, oriented ,PERRL, no facial palsy; no dysarthria; moves extremities. : post scrotal wall abscess, oozing abscess. Results & Data Results & Data Vital Signs (Past 12 Hours) Vital Signs Temp Pulse Resp BP BP Pulse Ox O2 Del Method 09/19/23 17:35 66 20 148/82 H 97 Room Air 09/19/23 17:25 62 20 143/60 H 96 Room Air 09/19/23 17:15 63 14 142/81 H 92 Room Air 09/19/23 17:05 36.8 C 62 20 146/80 H 95 Room Air 09/19/23 16:55 62 16 136/93 100 Oxymask 09/19/23 16:48 36.2 C L 76 12 145/94 H 99 Oxymask 09/19/23 15:33 67 20 135/65 95 Room Air 09/19/23 15:21 65 15 95 Room Air 09/19/23 11:27 36.7 C 69 18 144/80 H 97 Room Air 09/19/23 08:15 Room Air 09/19/23 07:23 36.9 C 63 18 145/69 H 96 Room Air O2 Flow Rate 09/19/23 17:35 09/19/23 17:25 09/19/23 17:15 09/19/23 17:05 09/19/23 16:55 4 09/19/23 16:48 6 09/19/23 15:33 09/19/23 15:21 09/19/23 11:27 09/19/23 08:15 09/19/23 07:23
[2023-09-19] MEDS: PIPERACILLIN/TAZOBACTAM 4.5 GM in DEXTROSE 5% MINI-B 100 ML IV SCH (18:00)
[2023-09-19] MEDS: DOCUSATE SODIUM/SENNA 50/8.6MG TAB PO SCH (18:24)
[2023-09-19] MEDS: PANTOprazole 40 MG TAB PO SCH (20:57)
[2023-09-19] MEDS: LANTUS PER UNIT CHARGE SQ STA (22:20)
[2023-09-19] MEDS: VANCOMYCIN HCL 1,500 MG in SODIUM CHLORIDE 0.9% 500 ML IV SCH (22:35)
[2023-09-20 06:10] LABS: Hematocrit (blood only) 27.9 % (42.0-52.0); Hemoglobin 8.9 g/dl (14.0-18.0); Mean Corpuscular Hemoglobin 30.9 pg (25.0-34.0); Mean Corpuscular Hgb Conc 31.9 g/dL (32.0-36.0); Mean Corpuscular Volume 96.9 fL (80.0-100.0); Mean Platelet Volume 11.8 fL (9.4-12.4); Nucleated RBC # (auto) 0.02 K/uL (0.00-0.12); Nucleated RBC % (auto) 0.2 %; Platelet Count 272 K/uL (130-400); RDW Coefficient of Variation 17.2 % (11.5-14.5); RDW Standard Deviation 61.2 fL (36.4-46.3); Red Blood Count 2.88 M/uL (4.70-6.10); White Blood Count 11.84 K/ul (4.8-10.8)
[2023-09-20 06:37] LABS: Prothrombin Time 11.1 Seconds (9.0-12.0)
[2023-09-20 07:18] LABS: Calcium 8.3 mg/dl (8.6-10.3); Creatinine Clr Calc Pharmacy 129.4 ml/min; Est GFR (Non-African American) 93.2 ml/min; Magnesium 1.8 mg/dl (1.7-2.4); Phosphorus 2.6 mg/dl (2.5-4.9); Potassium 4.2 mmol/L (3.5-5.1)
--- NOTE | 2023-09-20 07:58 | Urology Progress Note ---
Date of Service September 20, 2023 Assessment & Plan (1) Scrotal abscess: Plan POD #1 s/p Midline Scrotal Exploration, Excision and Drainage of Abscess, Aspiration of abscess, Washout of wound, Excisional debridement of abscess cavity. - Afebrile, hemodynamically stable. - Labs today reviewed - WBC 11.84, Hemoglobin 8.9, Creatinine 0.90. - Blood cultures 09/16 prelim no growth - Scrotal wound cultures pending - Continues on Vanco and Zosyn. ID consulted. - Exam consistent with recent I&D. No further surgical intervention needed at this time. - Packing exchanged this morning. Wound healthy appearing. - Wound care nurse consulted. Continue with packing/dressing changes per wound care recommendations. - Recommend setting up outpatient wound care and/or HH for dressing exchanges - Continue antibiotic therapy per ID recommendations. - Will arrange f/u with our service. - Urology will sign-off. Please call with any further questions, concerns, or changes in patient status. Admission and Anticipated Discharge Date Admission Date: September 17, 2023 Subjective Pt seen and examined at bedside Awake, resting in bed on arrival No acute distress No fevers Denies any significant pain or discomfort Voiding spontaneously Review of Systems Constitutional: as per Subjective / HPI Genitourinary: + as per Subjective / HPI Physical Exam Constitutional: no acute distress Respiratory: no respiratory distress and no labored breathing Neurologic: moves all extremities and awake Psychiatric: A+Ox3, euthymic affect Genitourinary: Previous abscess area to scrotum with packing in place. Gauze dressing with serosanguineous drainage. Packing taken out and wound healthy appearing. Induration around area which is expected. No areas of fluctuance. Minimal tenderness with palpation. No active bleeding. Wound was repacked with half-inch iodoform and ABD pad covering. Results & Data Vital Signs (Past 12 Hours) Vital Signs Temp Pulse Pulse Resp BP BP Pulse Ox 09/20/23 03:18 36.8 C 76 20 125/58 L 97 09/20/23 00:00 74 09/19/23 22:18 36.8 C 61 20 158/86 H 95 09/19/23 20:46 36.9 C 70 18 131/70 98 O2 Del Method 09/20/23 03:18 Room Air 09/20/23 00:00 09/19/23 22:18 Room Air 09/19/23 20:46 Room Air PG Care Time/CCT Total # of Minutes Spent Total Time Spent with Patient: Total time spent is greater than 50% in coordination of care (as documented) at patient's floor/unit and/or counseling patient: Coding Level of Care Code 80226 SUB INP/OBS CARE 2/35MIN Diagnoses Scrotal abscess N49.2
[2023-09-20] MEDS: LANTUS PER UNIT CHARGE SQ SCH (08:01)
--- NOTE | 2023-09-20 11:05 | Pharmacy Report ---
Pharmacy PK ABX Note - Date of Service September 20, 2023 - Assessment and Plan Assessment 09/19 * Day # 2 vancomycin, Day # 4 Zosyn * Patient is now s/p midline scrotal exploration, excision & drainage abscess, washout and debridement * Scrotal abscess cultures pending but gram stain read as "moderate gm positive cocci chains and rare gm positive cocci clusters"; no growth noted in BLCXs to date * Random vanco level drawn this AM = 15 * Renal fxn stable 09/18 * 58 year old M admitted on 09/15 for symptomatic anemia. Patient had been receiving empiric Zosyn x 48 hrs for leukocytosis - last dose infused last evening. New orders to restart Zosyn and begin Vancomycin IV for treatment of SSTI. * Pertinent microbiologic data includes: BLCXs no growth to date (I confirmed this with Micro as their instrument had initially detected bacteria however this was not confirmed microscopically and BCID2 was negative), UA from 09/16 no indicative of UTI, afebrile, Procal negative on admit (not repeated), leukocytosis resolved (but was receiving Zosyn last 2 days) * Overnight hospitalist noted pt had painful scrotal lump, US read as possible abscess. Of note, pt does have h/o nec fasciitis. Has h/o ps aeruginosa of L thigh in past cx's * Day # 1 of vancomycin, Day # 3 Zosyn. Plan Vancomycin * Continue maintenance dose of 1500 mg IV every 12 hours * Regimen is still predicted to achieve target AUC/MIGUEL of 400-600 mg/L.hr * Recommend repeat level in next 48 hrs to assess targets achieved in setting of BMI > 40 and potential for accumulation Pharmacy will continue to follow and will adjust dose/frequency as necessary. Thank you. Pharmacy has transitioned to AUC monitoring for vancomycin. AUC/MIGUEL is the preferred PK/PD target and is associated with decreased risk of nephrotoxicity compared to traditional trough targets.
--- NOTE | 2023-09-20 11:17 | Pharmacy Report ---
Pharmacy Glycemic Short Note 2 - Date of Service September 20, 2023 - Glycemic Short BSG Results (Last 24 hours): 09/19/23 09/19/23 09/20/23 16:49 20:52 05: Glucose 103 H POC Glucose 110 H 140 H 09/20/23 07:17 Glucose POC Glucose 116 H OUTPATIENT ANTIDIABETIC REGIMEN: * Lantus 45 units AM + 17 units HS * Novolog 12-15 units with each meal * A1c = 5.4% - however pt had received 1 unit PRBCs when this was drawn ASSESSMENT: 09/19 * BSGs well controlled over last 24 hrs * 0 units of insulin given over last 24 hrs * Patient has refused multiple doses of prandial and basal insulin over last 2 days, however BSGs still acceptable. Plan to less insulin doses as a result - however needs may change as diet progresses. 09/17 * BSGs well controlled over last 24 hours * Fasting BSG this AM 81-109 with 20 units basal on board - substantially less than what patient was reportedly taking as outpatient * Patient remains NPO again today, however is now ordered dextrose containing maint IVFs along with Zosyn and Protonix gtt's mixed in dextrose * Current insulin doses are reasonable to continue for the next 24 hrs 09/16 * Type 2 diabetic admitted for symptomatic anemia, ANUEL * Per outpt med rec patient receives ~100 units of insulin per day from basal/bolus regimen. * Given current BSGs and NPO status, will initiate a reduced dose of basal insulin. Bolus insulin will also be reduced empirically as A1c drawn today was below goal for most diabetics, this A1c could have been skewed by receipt of PRBC - but current BSG pattern warrants lesser insulin doses as initial therapy. PLAN FOR INPATIENT GLYCEMIC CONTROL: * Basal insulin * Lantus 0-8 units SQ BID per scale: 0 units if BSG less than 140, 8 units if BSG 140 or greater * Bolus insulin * NovoLog per scale ACHS or Q6hrs while NPO * Goal Range: Low 110 mg/dL - High 160 mg/dL * Correction Factor: 20 mg/dL/unit * Nutritional / Prandial insulin per carb ratio of 1 unit per 7 grams CHO consumed
--- NOTE | 2023-09-20 11:55 | Infectious Disease Consult ---
Date of Service September 20, 2023 Telehealth Information I performed this visit using a real-time telehealth connection between my location and the patients location ([facility]). After connecting through interactive tele-video, patient was identified by name and date of and/or wristband check.Patient (or authorized healthcare agency sales representative) was informed that this was a telemedicine visit and it was being conducted confidentially over secure lines. My office door was closed and no one else was present in the room with me.Patient (or authorized healthcare agency sales representative) provided consent to proceed with the visit, expressed an understanding of privacy and security of the telemedicine visit, and gave permission to have a hospital agency sales representative in the room in order to assist with the visit and to conduct portions of the visit, as needed. I informed the patient (or authorized healthcare agency sales representative) that I reviewed their record and presented the opportunity for them to ask any questions regarding the visit today. The patient agreed to participate. Assessment & Plan (1) Scrotal abscess: Plan: 58-year-old male with a scrotal abscess, patient states he has had multiple abscesses in the past and had necrotizing fasciitis of his anterior thigh with a significant scar while in [place]. He seemed to be largely asymptomatic from an infectious standpoint without a toxic appearance and his low hemoglobin is possibly related to this collection as well. Abscess has been drained, source control obtained however cultures are still no growth to date. We will continue with broad-spectrum at this point while waiting for culture maturation and with final recommendations in 24-48 hours. - Vancomycin IV, per pharmacy - Zosyn 4.5 g Q 8 hours IV Appreciate consultation, please do not hesitate to reach out for any further questions or concerns. Luis Mera MD PGY4 Infectious Disease History of Present Illness History of Present Illness 58-year-old male initially presenting to the ER with suspicion of a GI bleed with a past history of necrotizing fasciitis of the left medial superior thigh wound [place], type 2 diabetes, peripheral vascular disease, paroxysmal supraventricular tachycardia, obesity, tobacco abuse with initial hemoglobin 7.2 with a positive Hemoccult. EGD without significant findings. While bathing inpatient, he noticed a abnormally large swelling that resembled a 3rd testicle and underwent ultrasound of the testes which revealed a 38 ex 23 X 14 mm complex fluid collection that was consistent with abscess, Urology was consulted and patient underwent incision and washout on 05/30, patient was placed on Zosyn/vancomycin in his currently day 3 of therapy. Patient states he feels greatly improved after drainage, current cultures without significant growth, 1 culture with Gram-positive cocci in chains as well as clusters. Blood cultures remain negative, patient did not require pressor support and is afebrile, without elevation WBC. Allergies Allergy/AdvReac Type Severity Reaction Status Date / Time metformin AdvReac Severe SEVERE Verified 09/17/23 13:28 DIARRHEA adhesive AdvReac Intermediate Blister Verified 09/17/23 13:28 Home Medications Medication Instructions Recorded Confirmed Type atorvastatin 40 mg tablet 40 mg PO QAM 06/16/22 09/17/23 History clopidogrel 75 mg tablet 75 mg PO QAM 06/16/22 09/17/23 History insulin aspart U-100 100 unit/mL 12 - 15 unit subcut TIDWMEAL 06/16/22 09/17/23 History (3 mL) subcutaneous pen insulin glargine 100 unit/mL (3 45 unit subcut QAM 06/16/22 09/17/23 History mL) subcutaneous pen (Lantus Solostar U-100 Insulin) insulin glargine 100 unit/mL 17 unit subcut HS 06/16/22 09/17/23 History subcutaneous solution (Lantus U-100 Insulin) lisinopril 40 mg tablet 40 mg PO QAM 06/16/22 09/17/23 History metoprolol succinate 50 mg 50 mg PO QAM 06/16/22 09/17/23 History tablet,extended release 24 hr warfarin 10 mg tablet 15 - 20 mg PO UD 06/16/22 09/17/23 History isosorbide mononitrate 30 mg 30 mg PO QAM #30 tabs 06/29/22 09/17/23 Rx tablet,extended release 24 hr albuterol sulfate 90 mcg/actuation 2 inh inhalation BID PRN Wheezing 11/05/22 09/17/23 History aerosol inhaler nitroglycerin 0.4 mg sublingual 0.4 mg sublingual Q5M PRN Chest 03/22/23 09/17/23 History tablet (Nitrostat) Pain pregabalin 75 mg capsule 75 mg PO AMHS 09/17/23 09/17/23 History Patient History Medical History Neuropathy Aortoiliac occlusive disease PVD (peripheral vascular disease) Diabetic neuropathy T2DM (type 2 diabetes mellitus) IDDM Morbid obesity HLD (hyperlipidemia) HTN (hypertension) Hx of necrotising fasciitis 01/26/23, hospitalized for 1 month (still living in [place] at the time), hx abscesses that he self drained, had one that was he unable to manage>became septic area [id number] Hx of basal cell carcinoma Hx of migraines Arthritis Depression no meds PVD (peripheral vascular disease) unable to ambulate more than 25 feet without requiring his wheelchair or rollator/walker; always uses w/c outside of home V tach hx of > last episode 10/2022 > took nitro Atrial fibrillation no pacer > dx Feb 2022 > follows with Dr. Jacobson History of COVID-2020 > not hospitalized>no residual symptoms Chronic obstructive pulmonary disease uses res inh approx 4x day Hx of deep venous thrombosis Feb 2022 > bilat legs > due to neuropathy/diabetes > Warfarin/plavix MEETA (obstructive sleep apnea) not on cpap or O2 Surgical History Hx of skin graft lt leg S/P excisional debridement x4, left leg due to necrotising fascitis Hx of basal cell carcinoma excision History of hip surgery as child, left hip History of tooth extraction History of tonsillectomy History of cardiac cath x several, no stents, last one June 2022 at [facility], no stents "chasing blood clots to make sure none had entered his heart" Hx of laminectomy L3-S1 Family History Other Cancer Diabetes Family history of blood clots Heart disease Social History Smoking Status: Current every day smoker Tobacco Type: Cigars Cigarettes Per Day: 2-3; Second Hand Exposure: No; Do You Dip or Chew Tobacco: No; Hx Alcohol Use: No Hx Substance Use: Yes Prescribed Medications: Marijuana Last Used Substance: Days (ago) Last Used Substance Other:: 03/21/23, daily Substance Use Type Other:: uses daily > not medical card Preferred Language: Korean Communication Ability: Effective Visual Impairment: Limited Hearing Ability: Hard of Hearing Correctional Counselor Required: No Beliefs That Will Affect Care: None marital status: marital status details: but currently going through divorce Current Living Situation: Spouse Current Living Situation Comment: pt states he and his are in the process of current occupational status: unemployed How many Children do You have: 2 How many Children do You have Comment: son is involved with care and able to assist with care as needed (son lives 30 minutes from pt) Feels Safe at Home: Yes Diet: regular Diet Comment: tries to pay attention to what he eats regarding diabetes. during the past year weight has: increased > 10 lbs Assistive Devices: Walker Review of Systems CONSTITUTIONAL: Denies weight loss, fever and chills. HEENT: Denies changes in vision and hearing. RESPIRATORY: Denies SOB and cough. CV: Denies palpitations and CP. GI: Denies abdominal pain, nausea, vomiting and diarrhea. : Denies dysuria and urinary frequency. MSK: Denies myalgia and joint pain. SKIN: Denies rash and pruritus. NEUROLOGICAL: Denies headache and syncope PSYCHIATRIC: Denies recent changes in mood. Denies anxiety and depression. Results & Data Vital Signs (Past 12 Hours) Vital Signs Temp Pulse Pulse Resp BP Pulse Ox O2 Del Method 09/20/23 10:13 36.6 C 56 L 21 127/68 96 Room Air 09/20/23 08:00 85 09/20/23 08:00 Room Air 09/20/23 07:18 36.6 C 73 22 166/84 H 95 Room Air 09/20/23 03:18 36.8 C 76 20 125/58 L 97 Room Air 09/20/23 00:00 74 Diagnostic Findings 09/19/23 16:20 Gram Stain - Final Scrotum Aerobic and Anaerobic Culture - Pending 09/19/23 16:20 Gram Stain - Final Scrotum Aerobic and Anaerobic Culture - Pending 09/19/23 16:20 Gram Stain - Final Scrotum Aerobic and Anaerobic Culture - Pending 09/17/23 00:02 Aerobic Blood Culture - Preliminary Blood No growth in Aerobic bottle after 48 hours. Anaerobic Blood Culture - Preliminary No growth in Anaerobic bottle after 48 hours. 09/20/23 09/20/23 09/20/23 11:23 07:17 : WBC 11.84 H RBC 2.88 L Hgb 8.9 L Hct 27.9 L MCV 96.9 MCH 30.9 MCHC 31.9 L RDW Std Deviation 61.2 H RDW Coeff of Mercedes 17.2 H Plt Count 272 MPV 11.8 Absolute Nucleated RBC 0.02 Nucleated RBC % (auto) 0.2 Haptoglobin PT 11.1 INR 1.0 Sodium 138 Potassium 4.2 D Chloride 109 H Carbon Dioxide 26 Anion Gap 3 BUN 9 Creatinine 0.90 Est Cr Clr Drug Dosing 129.4 Est GFR ( Amer) 108.0 Est GFR (Non-Af Amer) 93.2 BUN/Creatinine Ratio 10.0 Glucose 103 H POC Glucose 118 H 116 H Calcium 8.3 L Phosphorus 2.6 Magnesium 1.8 Random Vancomycin 15.0 Crossmatch 09/19/23 09/19/23 09/19/23 20:52 16:49 14:20 WBC RBC Hgb 9.2 L Hct 28.2 L MCV MCH MCHC RDW Std Deviation RDW Coeff of Mercedes Plt Count MPV Absolute Nucleated RBC Nucleated RBC % (auto) Haptoglobin PT INR Sodium Potassium Chloride Carbon Dioxide Anion Gap BUN Creatinine Est Cr Clr Drug Dosing Est GFR ( Amer) Est GFR (Non-Af Amer) BUN/Creatinine Ratio Glucose POC Glucose 140 H 110 H Calcium Phosphorus Magnesium Random Vancomycin Crossmatch 09/18/23 09/17/23 05:16 00:02 WBC RBC Hgb Hct MCV MCH MCHC RDW Std Deviation RDW Coeff of Mercedes Plt Count MPV Absolute Nucleated RBC Nucleated RBC % (auto) Haptoglobin 150 PT INR Sodium Potassium Chloride Carbon Dioxide Anion Gap BUN Creatinine Est Cr Clr Drug Dosing Est GFR ( Amer) Est GFR (Non-Af Amer) BUN/Creatinine Ratio Glucose POC Glucose Calcium Phosphorus Magnesium Random Vancomycin Crossmatch See Detail
--- NOTE | 2023-09-20 17:14 | Hospitalist Progress Note ---
Date of Service September 20, 2023 Assessment & Plan (1) Symptomatic anemia: Plan: 58-year-old male with PMH of type 2 diabetes c/w PDN, hyperlipidemia, obstructive sleep apnea nontolerant of the CPAP, mild intermittent asthma, peripheral vascular disease, paroxysmal supraventricular tachycardia, mild CAD, hypertension, obesity, ongoing tobacco abuse presents with progressive shortness of breath on minimal exertion and found to have anemia of hemoglobin of 7.2 and Hemoccult positive in the ER. Patient states lately getting short of breath which progressively got worse that now walking few steps making him short of breath. has Mild cough. Had an episode of vomiting [employer] but no blood in the vomitus. He had some chest heaviness and dizziness, blurry vision all s/s of symptomatic anemia. Stools has been dark since his colonoscopy this year. Normal micturition. He is being managed for the following: Symptomatic anemia Likely GI bleed, likely UGI bleed: FOBT +ve at ED, BUN elevated at presentation, came in w/ black stool complaints. Patient coming in with complaint of progressive shortness of breath/dizziness/blurry vision/chest heaviness ISO black his stool x few months. Admitting echo with EF of 50 to 55%, moderate aortic root dilatation [4.7 cm], no regional wall motion abnormality, mild concentric LVH. Admitting hemoglobin of 7.2, hemoglobin of around 12 May/June last year. MCV in high 90s, folate 10.51, vitamin B12 526. Iron 18 with transferrin saturation of 6 and ferritin of 15. T bili wnl. Admitting CXR and CT head with no acute finding. 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 No acute abnormalities to explain anemia. 09/16 EGD scope: Normal esophagus, small hiatal hernia, gastritis noted, no specimens collected. Normal examined duodenum. Patient reports he has no BM in last 4 days, hemoglobin 6.7 this a.m., continues to have weakness/dizziness in the morning. Increase bowel regimen. s/p 3 unit PRBC, follow H&H closely, continue telemetry monitoring, advance diet as tolerated. GI evaluated, appreciate recommendation. Recommends hematology consult if with persistent anemia. And plan for VCE as an outpatient. c/w PO PPI, HnH has been stable. Will c/w iron supplement 09/17, c/w folic acid and b12 supplement. Repeat Iron profile in 3 months. PT/OT. Possible resume anticoag in AM after discussion w/ the patient. Scrotal abscess: lump at post wall of scrotum, imaged as [id number] mm abscess. s/p I and D by uro 09/18. c/w vanc 09/16 and zosyn 09/16, await 09/16 blood and 09/18 scrotal cx. ID consult - appreciate recs. Acute kidney injury: Admitting creatinine of 1.51, likely prerenal secondary to anemia. Resolved. Chest heaviness: Likely from anemia, no further complaints today, serial enzymes negative, echo reviewed. Continue telemetry monitoring. If any concern, consult cardiology. Peripheral vascular disease: in February 2022 was found to have iliac stenosis with toe ulceration, Vacular surgery: no intervention was recommended but advised to start an oral anticoagulant. Seems since then on Coumadin, INR at presentation 1.8. Coumadin on hold due to likely GI bleed. likely resume emery after discussion w/ patient. CTA A/P noted. Prolonged QTc: avoid QT prolonging drugs. follow repeat EKG. Monitor and replete electrolytes. Other chronic medical conditions: Continue with/resume home meds as and when able history of sleep apnea nontolerant to CPAP history of mild CAD: holding Plavix for GI bleed. continue statin, Imdur and metoprolol succinate diabetes : a1c 5.4. cut back on Lantus to 15 units twice daily, sliding scale. glycemic pharmacy consult. close monitor hyperlipidemia: on statin mild intermittent asthma: continue home inhalers hypertension : continue Imdur, metoprolol succinate, lisinopril. diabetic neuropathy: c/w home pregabalin DVT prophylaxis: SCDs for now Full code. pt/ot cm to assist dc plan. Please note the above document was generated using voice recognition software. It may contain grammatical, syntax or spelling errors. Any formal questions or concerns about the content, text or information contained within the body of this dictation should be directly addressed to the undersigned for clarificati on. Admission and Anticipated Discharge Date Admission Date: September 17, 2023 Subjective Patient was seen and examined at bedside. Patient was lying in bed, on room air, NAD. Reports feeling better, no weakness/dizziness. Physical Exam Physical Exam: General- Not in distress Head- atraumatic Eyes- PERRL. ENT- oropharynx clear Neck- supple, no JVD Lungs- clear to auscultation no wheezing or crackles. Heart- regular rate and rhythm; no murmur, no gallop. Abdomen- normal bowel sounds, soft, nontender, no distension. Extremities- mild pretibial edema present , no erythema seen. Neuro- alert, oriented ,PERRL, no facial palsy; no dysarthria; moves extremities. : post scrotal wall abscess -- I and D dressing noted. Results & Data Results & Data Vital Signs (Past 12 Hours) Vital Signs Temp Pulse Pulse Resp BP BP Pulse Ox 09/20/23 16:00 09/20/23 15:43 36.5 C 57 L 22 145/70 H 94 09/20/23 10:13 36.6 C 56 L 21 127/68 96 09/20/23 08:00 85 09/20/23 08:00 09/20/23 07:18 36.6 C 73 22 166/84 H 95 O2 Del Method 09/20/23 16:00 Room Air 09/20/23 15:43 Room Air 09/20/23 10:13 Room Air 09/20/23 08:00 09/20/23 08:00 Room Air 09/20/23 07:18 Room Air
[2023-09-21 09:12] LABS: Hematocrit (blood only) 30.7 % (42.0-52.0); Hemoglobin 9.9 g/dl (14.0-18.0); Mean Corpuscular Hemoglobin 31.1 pg (25.0-34.0); Mean Corpuscular Hgb Conc 32.2 g/dL (32.0-36.0); Mean Corpuscular Volume 96.5 fL (80.0-100.0); Mean Platelet Volume 11.7 fL (9.4-12.4); Platelet Count 289 K/uL (130-400); RDW Coefficient of Variation 16.6 % (11.5-14.5); RDW Standard Deviation 59.3 fL (36.4-46.3); Red Blood Count 3.18 M/uL (4.70-6.10); White Blood Count 9.76 K/ul (4.8-10.8)
[2023-09-21 09:35] LABS: Calcium 8.6 mg/dl (8.6-10.3); Magnesium 1.6 mg/dl (1.7-2.4); Potassium 3.9 mmol/L (3.5-5.1)
[2023-09-21 09:40] LABS: BUN Creatinine Ratio 10.8 (10-20); Creatinine Clr Calc Pharmacy 157.4 ml/min; Phosphorus 2.8 mg/dl (2.5-4.9)
[2023-09-21 09:43] LABS: Prothrombin Time 10.9 Seconds (9.0-12.0)
[2023-09-21] MEDS: ADVANCED PROBIOTIC 625 MG CAPSULE PO SCH (11:20)
--- NOTE | 2023-09-21 13:03 | Hospitalist Progress Note ---
Date of Service September 21, 2023 Assessment & Plan (1) Symptomatic anemia: Plan: 58-year-old male with PMH of type 2 diabetes c/w PDN, hyperlipidemia, obstructive sleep apnea nontolerant of the CPAP, mild intermittent asthma, peripheral vascular disease, paroxysmal supraventricular tachycardia, mild CAD, hypertension, obesity, ongoing tobacco abuse presents with progressive shortness of breath on minimal exertion and found to have anemia of hemoglobin of 7.2 and Hemoccult positive in the ER. Patient states lately getting short of breath which progressively got worse that now walking few steps making him short of breath. has Mild cough. 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 He had some chest heaviness and dizziness, blurry vision all s/s of symptomatic anemia. Stools has been dark since his colonoscopy this year. Normal micturition. He is being managed for the following: Symptomatic anemia Likely GI bleed, likely UGI bleed: FOBT +ve at ED, BUN elevated at presentation, came in w/ black stool complaints. Patient coming in with complaint of progressive shortness of breath/dizziness/blurry vision/chest heaviness ISO black his stool x few months. Admitting echo with EF of 50 to 55%, moderate aortic root dilatation [4.7 cm], no regional wall motion abnormality, mild concentric LVH. Admitting hemoglobin of 7.2, hemoglobin of around 12 May/June last year. MCV in high 90s, folate 10.51, vitamin B12 526. Iron 18 with transferrin saturation of 6 and ferritin of 15. T bili wnl. Admitting CXR and CT head with no acute finding. 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 No acute abnormalities to explain anemia. 09/16 EGD scope: Normal esophagus, small hiatal hernia, gastritis noted, no specimens collected. Normal examined duodenum. s/p 3 unit PRBC, tolerated diet well. HnH stable, Monitor daily or prn. GI evaluated, appreciate recommendation. Recommends hematology consult if with persistent anemia. And plan for VCE as an outpatient. c/w PO PPI, C/w iron supplement 09/17, c/w folic acid and b12 supplement. Repeat Iron profile in 3 months. PT/OT. Pt doesn't want anticoagulation resumed [understands the risk of clot/losing affected LE] and doesn't want dvt px resumed. Scrotal abscess: lump at post wall of scrotum, imaged as [id number] mm abscess. s/p I and D by uro 09/18. c/w vanc 09/16 and zosyn 09/16, await 09/16 blood and 09/18 scrotal cx. ID consult - appreciate recs. Acute kidney injury: Admitting creatinine of 1.51, likely prerenal secondary to anemia. Resolved. Chest heaviness: Likely from anemia, no further complaints today, serial enzymes negative, echo reviewed. Continue telemetry monitoring. If any concern, consult cardiology. Peripheral vascular disease: in February 2022 was found to have iliac stenosis with toe ulceration, Vacular surgery: no intervention was recommended but advised to start an oral anticoagulant. Seems since then on Coumadin, INR at presentation 1.8. Pt doesn't want anticoagulation resumed even if it means he will end up losing leg. Recommend he f/u w/ vascular surgeon on discharge. Prolonged QTc: avoid QT prolonging drugs. follow repeat EKG. Monitor and replete electrolytes. Other chronic medical conditions: Continue with/resume home meds as and when able history of sleep apnea nontolerant to CPAP history of mild CAD: resume Plavix. continue statin, Imdur and metoprolol succinate diabetes : a1c 5.4. cut back on Lantus to 15 units twice daily, sliding scale. glycemic pharmacy consult. close monitor hyperlipidemia: on statin mild intermittent asthma: continue home inhalers hypertension : continue Imdur, metoprolol succinate, lisinopril. diabetic neuropathy: c/w home pregabalin DVT prophylaxis: SCDs for now Full code. pt/ot cm to assist dc plan. Please note the above document was generated using voice recognition software. It may contain grammatical, syntax or spelling errors. Any formal questions or concerns about the content, text or information contained within the body of this dictation should be directly addressed to the undersigned for clarification. Admission and Anticipated Discharge Date Admission Date: September 17, 2023 Subjective Patient was seen and examined at bedside. Patient was lying in bed, on room air, NAD. Reports feeling better, no weakness/dizziness. As always upset and angry mood. Discussed about need for resuming anticoagulation in detail. He does not want either warfarin or any other forms of anticoagulation initiated. He does not even want DVT prophylaxis while in the hospital. He understands the risks of blood clot causing him stroke/arrhythmia/. He also understands that if he is not on anticoagulation long-term, he will likely end up losing his affected leg [with PAD]. Also has been refusing to wear heart monitor and adamantly refuses to put them back on. Hence he will be moved to med surgical floor. Physical Exam Physical Exam: General- Not in distress Head- atraumatic Eyes- PERRL. ENT- oropharynx clear Neck- supple, no JVD Lungs- clear to auscultation no wheezing or crackles. Heart- regular rate and rhythm; no murmur, no gallop. Abdomen- normal bowel sounds, soft, nontender, no distension. Extremities- mild pretibial edema present , no erythema seen. Neuro- alert, oriented ,PERRL, no facial palsy; no dysarthria; moves extremities. : post scrotal wall abscess -- I and D dressing noted. Results & Data Results & Data Vital Signs (Past 12 Hours) Vital Signs Temp Pulse Resp BP BP Pulse Ox O2 Del Method 09/21/23 10:33 36.8 C 55 L 21 131/75 96 Room Air 09/21/23 07:53 36.6 C 83 18 169/64 H 95 Room Air 09/21/23 07:07 36.4 C L 52 L 21 139/69 92 Room Air 09/21/23 03:15 36.5 C 65 18 126/78 96 Room Air
[2023-09-21] MEDS: MAGNESIUM OXIDE 400 MG TAB PO SCH (21:26)
[2023-09-22 06:50] LABS: Hematocrit (blood only) 29.9 % (42.0-52.0); Hemoglobin 9.7 g/dl (14.0-18.0); Mean Corpuscular Hemoglobin 31.1 pg (25.0-34.0); Mean Corpuscular Hgb Conc 32.4 g/dL (32.0-36.0); Mean Corpuscular Volume 95.8 fL (80.0-100.0); Mean Platelet Volume 11.2 fL (9.4-12.4); Platelet Count 283 K/uL (130-400); RDW Standard Deviation 55.9 fL (36.4-46.3); Red Blood Count 3.12 M/uL (4.70-6.10); White Blood Count 8.25 K/ul (4.8-10.8)
[2023-09-22] MEDS: CLOPIDOGREL BISULFATE 75 MG TAB PO SCH (07:52)
[2023-09-22 08:10] LABS: BUN Creatinine Ratio 11.3 (10-20); Calcium 8.5 mg/dl (8.6-10.3); Creatinine Clr Calc Pharmacy 145.2 ml/min; Est GFR (African American) 113.3 ml/min; Est GFR (Non-African American) 97.8 ml/min; Magnesium 1.7 mg/dl (1.7-2.4); Phosphorus 3.1 mg/dl (2.5-4.9); Potassium 3.8 mmol/L (3.5-5.1)
--- NOTE | 2023-09-22 11:33 | Pharmacy Report ---
Pharmacy PK ABX Note - Date of Service September 22, 2023 - Assessment and Plan Assessment 09/21: * Day 4 of vanc, day 6 of Zosyn. * Of note, 2200 dose on 09/19 was not given due to line issue. Below level interpretation is reflective of the missing dose. * Scrotal abscess cultures growing GPCs and corynebacterium. * ID consulted 09/19 * Day # 2 vancomycin, Day # 4 Zosyn * Patient is now s/p midline scrotal exploration, excision & drainage abscess, washout and debridement * Scrotal abscess cultures pending but gram stain read as "moderate gm positive cocci chains and rare gm positive cocci clusters"; no growth noted in BLCXs to date * Random vanco level drawn this AM = 15 * Renal fxn stable 09/18 * 58 year old M admitted on 09/15 for symptomatic anemia. Patient had been receiving empiric Zosyn x 48 hrs for leukocytosis - last dose infused last evening. New orders to restart Zosyn and begin Vancomycin IV for treatment of SSTI. * Pertinent microbiologic data includes: BLCXs no growth to date (I confirmed this with Micro as their instrument had initially detected bacteria however t his was not confirmed microscopically and BCID2 was negative), UA from 09/16 no indicative of UTI, afebrile, Procal negative on admit (not repeated), leukocytosis resolved (but was receiving Zosyn last 2 days) * Overnight hospitalist noted pt had painful scrotal lump, US read as possible abscess. Of note, pt does have h/o nec fasciitis. Has h/o ps aeruginosa of L thigh in past cx's * Day # 1 of vancomycin, Day # 3 Zosyn. Plan Vancomycin * Current regimen: 1500 mg IV every 12 hours * Random level obtained 09/22/23 resulted as 12.8 mcg/mL. This is predicted to achieve target AUC/MIGUEL of 400-600 mg/L.hr * Predicted AUC at steady state: 444 mg/L.hr * Continue current dose * Repeat random level ordered for: 09/24/23 Pharmacy will continue to follow and will adjust dose/frequency as necessary. Thank you. Pharmacy has transitioned to AUC monitoring for vancomycin. AUC/MIGUEL is the preferred PK/PD target and is associated with decreased risk of nephrotoxicity compared to traditional trough targets.
--- NOTE | 2023-09-22 14:08 | Pharmacy Report ---
Pharmacy Glycemic Short Note 2 - Date of Service September 22, 2023 - Glycemic Short BSG Results (Last 24 hours): 09/21/23 09/21/23 09/22/23 16:57 20:35 06:22 Glucose 103 H POC Glucose 109 H 135 H 09/22/23 09/22/23 07:48 11:33 Glucose POC Glucose 117 H 131 H OUTPATIENT ANTIDIABETIC REGIMEN: * Lantus 45 units AM + 17 units HS * Novolog 12-15 units with each meal * A1c = 5.4% - however pt had received 1 unit PRBCs when this was drawn ASSESSMENT: 09/21: * Received 6 units of insulin yesterday, all bolus. BSGs were [phone] mg/dL. * Remains on Vancomycin and Zosyn. Fasting BSG was 117 mg/dL. Will d/c basal insulin at this point. * No changes necessary to bolus regimen today. 09/19: * BSGs well controlled over last 24 hrs * 0 units of insulin given over last 24 hrs * Patient has refused multiple doses of prandial and basal insulin over last 2 days, however BSGs still acceptable. Plan to less insulin doses as a result - however needs may change as diet progresses. 09/17: * BSGs well controlled over last 24 hours * Fasting BSG this AM 81-109 with 20 units basal on board - substantially less than what patient was reportedly taking as outpatient * Patient remains NPO again today, however is now ordered dextrose containing maint IVFs along with Zosyn and Protonix gtt's mixed in dextrose * Current insulin doses are reasonable to continue for the next 24 hrs 09/16: * Type 2 diabetic admitted for symptomatic anemia, ANUEL * Per outpt med rec patient receives ~100 units of insulin per day from basal/bolus regimen. * Given current BSGs and NPO status, will initiate a reduced dose of basal ins ulin. Bolus insulin will also be reduced empirically as A1c drawn today was below goal for most diabetics, this A1c could have been skewed by receipt of PRBC - but current BSG pattern warrants lesser insulin doses as initial therapy. PLAN FOR INPATIENT GLYCEMIC CONTROL: * Basal insulin * None * Bolus insulin * NovoLog per scale ACHS or Q6hrs while NPO * Goal Range: Low 110 mg/dL - High 160 mg/dL * Correction Factor: 20 mg/dL/unit * Nutritional / Prandial insulin per carb ratio of 1 unit per 7 grams CHO consumed
--- NOTE | 2023-09-22 15:00 | Hospitalist Progress Note ---
Date of Service September 22, 2023 Assessment & Plan (1) Symptomatic anemia: Plan: 58-year-old male with PMH of type 2 diabetes c/w PDN, hyperlipidemia, obstructive sleep apnea nontolerant of the CPAP, mild intermittent asthma, peripheral vascular disease, paroxysmal supraventricular tachycardia, mild CAD, hypertension, obesity, ongoing tobacco abuse presents with progressive shortness of breath on minimal exertion and found to have anemia of hemoglobin of 7.2 and Hemoccult positive in the ER. Patient states lately getting short of breath which progressively got worse that now walking few steps making him short of breath. has Mild cough. 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 He had some chest heaviness and dizziness, blurry vision all s/s of symptomatic anemia. Stools has been dark since his colonoscopy this year. Normal micturition. He is being managed for the following: Symptomatic anemia Likely GI bleed, likely UGI bleed: FOBT +ve at ED, BUN elevated at presentation, came in w/ black stool complaints. Patient coming in with complaint of progressive shortness of breath/dizziness/blurry vision/chest heaviness ISO black his stool x few months. Admitting echo with EF of 50 to 55%, moderate aortic root dilatation [4.7 cm], no regional wall motion abnormality, mild concentric LVH. Admitting hemoglobin of 7.2, hemoglobin of around 12 May/June last year. MCV in high 90s, folate 10.51, vitamin B12 526. Iron 18 with transferrin saturation of 6 and ferritin of 15. T bili wnl. Admitting CXR and CT head with no acute finding. 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 No acute abnormalities to explain anemia. 09/16 EGD scope: Normal esophagus, small hiatal hernia, gastritis noted, no specimens collected. Normal examined duodenum. s/p 3 unit PRBC, tolerated diet well. HnH stable, Monitor daily or prn. GI evaluated, appreciate recommendation. Recommends hematology consult if with persistent anemia. And plan for VCE as an outpatient. c/w PO PPI, C/w iron supplement 09/17, c/w folic acid and b12 supplement. Repeat Iron profile in 3 months. PT/OT. Pt doesn't want anticoagulation resumed [understands the risk of clot/losing affected LE] and doesn't want dvt px as well. Scrotal abscess: lump at post wall of scrotum, imaged as [id number] mm abscess. s/p I and D by uro 09/18. c/w vanc 09/16 and zosyn 09/16, await 09/16 blood and 09/18 scrotal cx. ID consult - appreciate recs. Acute kidney injury: Admitting creatinine of 1.51, likely prerenal secondary to anemia. Resolved. Chest heaviness: Likely from anemia, no further complaints today, serial enzymes negative, echo reviewed. Continue telemetry monitoring. If any concern, consult cardiology. Peripheral vascular disease: in February 2022 was found to have iliac stenosis with toe ulceration, Vacular surgery: no intervention was recommended but advised to start an oral anticoagulant. Seems since then on Coumadin, INR at presentation 1.8. Pt doesn't want anticoagulation resumed even if it means he will end up losing leg. Recommend he f/u w/ vascular surgeon on discharge. Prolonged QTc: avoid QT prolonging drugs. follow repeat EKG. Monitor and replete electrolytes. Other chronic medical conditions: Continue with/resume home meds as and when able history of sleep apnea nontolerant to CPAP history of mild CAD: resume Plavix. continue statin, Imdur and metoprolol succinate diabetes : a1c 5.4. cut back on Lantus to 15 units twice daily, sliding scale. glycemic pharmacy consult. close monitor hyperlipidemia: on statin mild intermittent asthma: continue home inhalers hypertension : continue Imdur, metoprolol succinate, lisinopril. diabetic neuropathy: c/w home pregabalin DVT prophylaxis: SCDs for now Full code. pt/ot cm to assist dc plan. Please note the above document was generated using voice recognition software. It may contain grammatical, syntax or spelling errors. Any formal questions or concerns about the content, text or information contained within the body of this dictation should be directly addressed to the undersigned for clarification. Admission and Anticipated Discharge Date Admission Date: September 17, 2023 Subjective Patient was seen and examined at bedside. Patient was lying in bed, on room air, NAD. Reports feeling better, no weakness/dizziness. Appears calm and happy today. Physical Exam Physical Exam: General- Not in distress Head- atraumatic Eyes- PERRL. ENT- oropharynx clear Neck- supple, no JVD Lungs- clear to auscultation no wheezing or crackles. Heart- regular rate and rhythm; no murmur, no gallop. Abdomen- normal bowel sounds, soft, nontender, no distension. Extremities- mild pretibial edema present , no erythema seen. Neuro- alert, oriented ,PERRL, no facial palsy; no dysarthria; moves extr emities. : post scrotal wall abscess -- I and D dressing noted. Results & Data Results & Data Vital Signs (Past 12 Hours) Vital Signs Temp Pulse Resp BP Pulse Ox O2 Del Method 09/22/23 13:24 Room Air 09/22/23 07:33 36.5 C 68 18 151/83 H 95 Room Air
[2023-09-23 07:04] LABS: Hematocrit (blood only) 28.6 % (42.0-52.0); Hemoglobin 9.2 g/dl (14.0-18.0); Mean Corpuscular Hgb Conc 32.2 g/dL (32.0-36.0); Mean Corpuscular Volume 96.3 fL (80.0-100.0); Mean Platelet Volume 11.8 fL (9.4-12.4); Platelet Count 279 K/uL (130-400); RDW Coefficient of Variation 15.9 % (11.5-14.5); RDW Standard Deviation 56.2 fL (36.4-46.3); Red Blood Count 2.97 M/uL (4.70-6.10); White Blood Count 8.25 K/ul (4.8-10.8)
--- NOTE | 2023-09-23 13:28 | Hospitalist Progress Note ---
Date of Service September 23, 2023 Assessment & Plan (1) Symptomatic anemia: Plan: 58-year-old male with PMH of type 2 diabetes c/w PDN, hyperlipidemia, obstructive sleep apnea nontolerant of the CPAP, mild intermittent asthma, peripheral vascular disease, paroxysmal supraventricular tachycardia, mild CAD, hypertension, obesity, ongoing tobacco abuse presents with progressive shortness of breath on minimal exertion and found to have anemia of hemoglobin of 7.2 and Hemoccult positive in the ER. Patient states lately getting short of breath which progressively got worse that now walking few steps making him short of breath. has Mild cough. Had an episode of vomiting [employer] but no blood in the vomitus. He had some chest heaviness and dizziness, blurry vision all s/s of symptomatic anemia. Stools has been dark since his colonoscopy this year. Normal micturition. He is being managed for the following: Symptomatic anemia Acute Blood loss anemia Likely GI bleed, likely UGI bleed: FOBT +ve at ED, BUN elevated at presentation, came in w/ black stool complaints. Patient coming in with complaint of progressive shortness of breath/dizziness/blurry vision/chest heaviness ISO black his stool x few months. Admitting echo with EF of 50 to 55%, moderate aortic root dilatation [4.7 cm], no regional wall motion abnormality, mild concentric LVH. Admitting hemoglobin of 7.2, hemoglobin of around 12 May/June last year. MCV in high 90s, folate 10.51, vitamin B12 526. Iron 18 with transferrin saturation of 6 and ferritin of 15. T bili wnl. Admitting CXR and CT head with no acute finding. 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 No acute abnormalities to explain anemia. 09/16 EGD scope: Normal esophagus, small hiatal hernia, gastritis noted, no specimens collected. Normal examined duodenum. s/p 3 unit PRBC, tolerated diet well. HnH stable, Monitor daily or prn. GI evaluated, appreciate recommendation. Recommends hematology consult if with persistent anemia. And plan for VCE as an outpatient. c/w PO PPI, C/w iron supplement 09/17, c/w folic acid and b12 supplement. Repeat Iron profile in 3 months. PT/OT. Pt doesn't want anticoagulation resumed [understands the risk of clot/losing affected LE] and doesn't want dvt px as well. Scrotal abscess: lump at post wall of scrotum, imaged as [id number] mm abscess. s/p I and D by uro 09/18. c/w vanc 09/16 and zosyn 09/16, await 09/16 blood and 09/18 scrotal cx. Discussed with ID who recommends oral augmentin for total for 10 days of therapy, will need wound consult to determine dressing changes and home health needs Acute kidney injury: Admitting creatinine of 1.51, likely prerenal secondary to anemia. Resolved. Chest heaviness: Likely from anemia, no further complaints today, serial enzymes negative, echo reviewed. Continue telemetry monitoring. If any concern, consult cardiology. Peripheral vascular disease: in February 2022 was found to have iliac stenosis with toe ulceration, Vacular surgery: no intervention was recommended but advised to start an oral anticoagulant. Seems since then on Coumadin, INR at presentation 1.8. Pt doesn't want anticoagulation resumed even if it means he will end up losing leg. Recommend he f/u w/ vascular surgeon on discharge. Prolonged QTc: avoid QT prolonging drugs. follow repeat EKG. Monitor and replete electrolytes. Other chronic medical conditions: Continue with/resume home meds as and when able history of sleep apnea nontolerant to CPAP history of mild CAD: resume Plavix. continue statin, Imdur and metoprolol succinate diabetes : a1c 5.4. cut back on Lantus to 15 units twice daily, sliding scale. glycemic pharmacy consult. close monitor hyperlipidemia: on statin mild intermittent asthma: continue home inhalers hypertension : continue Imdur, metoprolol succinate, lisinopril. diabetic neuropathy: c/w home pregabalin DVT prophylaxis: SCDs for now Full code. pt medically stable to d/c to home, awaiting wound recs and to determine if he needs home health for wound care needs A total of 50 minutes was spent coordinating, documenting, and providing care for this patient excluding time spent in the performance of separately billed services. This included personally viewing all current laboratories and imaging studies, medication reconciliation, outpatient chart review, and discussion with specialists. Admission and Anticipated Discharge Date Admission Date: September 17, 2023 Supervising Physician Co-Signing Physician Notes Patient was seen and examined at bedside. Patient stable, reports feeling better, updated about final culture results. Patient would likely be discharged tomorrow with wound care recs. ID evaluated, Augmentin for total of 10 days therapy. Appreciate recs. On examination patient on room air, obese, heart/lung/abdomen examination fairly WNL. Rest of the examination as above. I have seen and examined the patient and have discussed the case with the provider above. I agree with the assessment and plan as stated. Subjective Pt seen in 310. F/U GIB and scrotal abscess. "I want out of here." He reports hx of multiple abscess says he could change dressing himself or just not have one despite recs. Denies f/c/s, chest pain, sob, n/v/d. He is hopeful to discharge soon. He feels his Neuropathy is bad today. Review of Systems Review of Systems: All systems reviewed & are unremarkable except as noted in HPI & below Physical Exam Physical Exam: Gen: WD/WN, M, Obese, NAD, A&O x3 HEENT: Normocephalic, atraumatic, conjunctivae moist, sclerae anicteric, mucous membranes moist. Lung: Clear to Auscultation bilaterally, no wheezes/rales/rhonchi Heart: Regular rate, regular rhythm, no murmurs, rubs, or gallops Abdomen: Soft, NT, ND +BS x 4 Extremities: No edema Skin: Warm, no rash, negative turgor. Results & Data Results & Data Vital Signs (Past 12 Hours) Vital Signs Temp Pulse Pulse Resp BP Pulse Ox O2 Del Method 09/23/23 12:47 36.5 C 64 17 134/78 96 Room Air 09/23/23 07:40 36.7 C 70 17 138/70 96 Room Air 09/23/23 07:24 36.5 C 66 18 144/82 H 97 Room Air Laboratory Results Short CBC 09/23/23 Range/Units 05:39 WBC 8.25 (4.8-10.8) K/ul Hgb 9.2 L (14.0-18.0) g/dl Hct 28.6 L (42.0-52.0) % Plt Count 279 (130-400) K/uL Medications Administered Current Inpatient Medications Acetaminophen (Acetaminophen 325 Mg Tab) 650 mg PO Q4H PRN PRN Reason: Pain or Fever Stop: 10/17/23 05:20 Albuterol (Albuterol Hfa 8 Gm Inhaler) 2 puffs INH BID PRN PRN Reason: Wheezing Stop: 10/17/23 05:20 Atorvastatin Calcium (Atorvastatin 40 Mg Tab) 40 mg PO [facility] Stop: 10/17/23 08:59 Last Admin: 09/23/23 08:20 Dose: 40 mg Clopidogrel Bisulfate (Clopidogrel Bisulfate 75 Mg Tab) 75 mg PO [facility] Stop: 10/22/23 08:59 Last Admin: 09/23/23 08:20 Dose: 75 mg Cyanocobalamin (Cyanocobalamin (B-12) 500 Mcg Tablet) 500 mcg PO [facility] Stop: 10/19/23 08:59 Last Admin: 09/23/23 08:20 Dose: 500 mcg Dextrose (Dextrose 50% 50 Ml Syringe) 25 - 50 ml IV UD PRN; Protocol PRN Reason: Hypoglycemia Protocol Stop: 10/17/23 05:20 Ferrous Sulfate (Ferrous Sulfate 325 Mg Tab) 325 mg PO [facility] Stop: 10/19/23 08:59 Last Admin: 09/23/23 08:21 Dose: 325 mg Folic Acid (Folic Acid 1 Mg Tab) 1 mg PO [facility] Stop: 10/19/23 08:59 Last Admin: 09/23/23 08:21 Dose: 1 mg Glucagon (Glucagon For Inj 1 Mg Vial) 1 mg SQ UD PRN; Protocol PRN Reason: Hypoglycemia Protocol Stop: 10/17/23 05:20 Glucose (Glucose 40% Gel 15 Gm Tube) 15 - 30 gm PO UD PRN; Protocol PRN Reason: Hypoglycemia Protocol Stop: 10/17/23 05:20 Glucose (Glucose 10 Tab/Tube) 4 - 8 tab PO UD PRN; Protocol PRN Reason: Hypoglycemia Treatment Stop: 10/17/23 05:20 Hydralazine HCl (Hydralazine Hcl 20 Mg/Ml Vial) 5 mg IV Q6H PRN PRN Reason: SBP > 170 Stop: 10/17/23 05:20 Hydromorphone HCl (Hydromorphone Inj 1 Mg/Ml Syringe) 1 mg IV Q6H PRN PRN Reason: Pain Stop: 10/01/23 08:33 Last Admin: 09/19/23 18:20 Dose: 1 mg Piperacillin Sod/Tazobactam (Sod 4.5 gm/ Dextrose) 100 mls @ 25 mls/hr IV Q8H [facility]; Protocol Stop: 09/26/23 17:59 Last Infusion: 09/23/23 06:53 Dose: Infused Vancomycin HCl 1,500 mg/ (Sodium Chloride) 530 mls @ 200 mls/hr IV Q12H [facility] Stop: 09/26/23 21:59 Last Admin: 09/23/23 10:46 Dose: 200 mls/hr Insulin Aspart (Insulin Aspart Per Unit Charge) 0 units SC ACHS [facility] Stop: 10/18/23 17:07 Last Admin: 09/23/23 13:06 Dose: 10 units Isosorbide Mononitrate (Isosorbide [place] Extended Rel 30 Mg Tabcr) [facility] Stop: 10/17/23 08:59 Last Admin: 09/23/23 08:22 Dose: 30 mg Lactobacillus Acidophilus (Advanced Probiotic 625 Mg Capsule) 1,250 mg PO DAILY [facility] Stop: 10/21/23 08:59 Last Admin: 09/23/23 08:22 Dose: 1,250 mg Lisinopril (Lisinopril 40 Mg Tab) [facility] Stop: 10/18/23 08:59 Last Admin: 09/23/23 08:22 Dose: 40 mg Magnesium Oxide (Magnesium Oxide 400 Mg Tab) 400 mg PO BID [facility] Stop: 09/24/23 09:01 Last Admin: 09/23/23 08:23 Dose: 400 mg Metoprolol Succinate (Metoprolol Succ 50mg Ext Rel Tab) [facility] Stop: 10/17/23 08:59 Last Admin: 09/23/23 08:23 Dose: 50 mg Miscellaneous (Carbohydrates For Hypoglycemia ) 15 - 30 gm PO UD PRN PRN Reason: Hypoglycemia Protocol Stop: 10/17/23 05:20 Miscellaneous (Order Awaiting Action: Ozempic) 1 each N/A QS [facility] Stop: 10/20/23 15:59 Last Admin: 09/20/23 16:42 Dose: Not Given Miscellaneous Information (Pharmacy Glycemic Mgmt Consult) 1 each N/A UD PRN PRN Reason: Consult Stop: 10/17/23 05:20 Miscellaneous Information (Vancomycin Consult Active) 0 each N/A UD PRN PRN Reason: Consult Stop: 10/19/23 11:11 Nitroglycerin (Nitroglycerin Sl 0.4 Mg/Tab Tab) 0.4 mg SL Q5M PRN PRN Reason: Chest Pain Stop: 10/17/23 05:20 Oxycodone HCl (Oxycodone Hcl Ir 5 Mg Tab (Immediate Release)) 5 mg PO Q4H PRN PRN Reason: Moderate Pain (Scale 4, 5, 6) Stop: 10/01/23 08:33 Last Admin: 09/20/23 00:27 Dose: 5 mg Pantoprazole Sodium (Pantoprazole 40 Mg Tab) 40 mg PO BID [facility] Stop: 10/19/23 20:59 Last Admin: 09/23/23 08:23 Dose: 40 mg Polyethylene Glycol (Polyethylene (Miralax) 17 Gm Pack) 17 gm PO DAILY PRN PRN Reason: Constipation Stop: 10/19/23 07:51 Pregabalin (Pregabalin 75 Mg Cap) 75 mg PO AMHS [facility] Stop: 10/17/23 08:59 Last Admin: 09/23/23 08:27 Dose: 75 mg Senna/Docusate Sodium (Docusate Sodium/Senna 50/8.6mg Tab) 1 tab PO QAM [facility] Stop: 10/19/23 17:44 Last Admin: 09/23/23 08:24 Dose: 1 tab
[2023-09-23] MEDS: AMOXICILLIN/CLAVULANATE 875 MG TAB PO SCH (18:03)
--- NOTE | 2023-09-24 10:11 | Discharge Summary ---
Discharge Summary Date of Service September 24, 2023 Principal Dx & Hospital Course #1 = Principal Diagnosis (1) Symptomatic anemia: 58-year-old male with PMH of type 2 diabetes c/w PDN, hyperlipidemia, obstructive sleep apnea nontolerant of the CPAP, mild intermittent asthma, peripheral vascular disease, paroxysmal supraventricular tachycardia, mild CAD, hypertension, obesity, ongoing tobacco abuse presents with progressive shortness of breath on minimal exertion and found to have anemia of hemoglobin of 7.2 and Hemoccult positive in the ER. Patient states lately getting short of breath which progressively got worse that now walking few steps making him short of breath. has Mild cough. Had an episode of vomiting [employer] but no blood in the vomitus. He had some chest heaviness and dizziness, blurry vision all s/s of symptomatic anemia. Stools has been dark since his colonoscopy this year. Normal micturition. He is being managed for the following: Symptomatic anemia Acute Blood loss anemia Likely GI bleed, likely UGI bleed: FOBT + at ED, BUN elevated at presentation, came in w/ black stool complaints. Patient coming in with complaint of progressive shortness of breath/dizziness/blurry vision/chest heaviness ISO black his stool x few months. Admitting echo with EF of 50 to 55%, moderate aortic root dilatation [4.7 cm], no regional wall motion abnormality, mild concentric LVH. Admitting hemoglobin of 7.2, hemoglobin of around 12 May/June last year. MCV in high 90s, folate 10.51, vitamin B12 526. Iron 18 with transferrin saturation of 6 and ferritin of 15. T bili wnl. Admitting CXR and CT head with no acute finding. 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 No acute abnormalities to explain anemia. 09/16 EGD scope: Normal esophagus, small hiatal hernia, gastritis noted, no specimens collected. Normal examined duodenum. s/p 3 unit PRBC, H/H stablilized GI evaluated, appreciate recommendation. Recommends hematology consult if with persistent anemia. And plan for VCE as an outpatient. c/w PO PPI, C/w iron supplement 09/17, c/w folic acid and b12 supplement. Repeat Iron profile in 3 months. PT/OT. Pt doesn't want anticoagulation resumed [understands the risk of clot/losing affected LE] and doesn't want dvt px as well. Scrotal abscess: lump at post wall of scrotum, imaged as [id number] mm abscess. s/p I and D by uro 09/18. c/w vanc 09/16 and zosyn 09/16, await 09/16 blood and 09/18 scrotal cx. Discussed with ID who recommends oral augmentin for total for 10 days of therapy,. He was seen and evaluated by wound care who recommended would vac but patient declined. They further recommended wound care but he declined to have Home Health set up per case management. Acute kidney injury: Admitting creatinine of 1.51, likely prerenal secondary to anemia. Resolved. Chest heaviness: Likely from anemia, resolved. Peripheral vascular disease: in February 2022 was found to have iliac stenosis with toe ulceration, Vacular surgery: no intervention was recommended but advised to start an oral anticoagulant. Seems since then on Coumadin, INR at presentation 1.8. Pt doesn't want anticoagulation resumed even if it means he will end up losing leg. Recommend he f/u w/ vascular surgeon on discharge. Prolonged QTc: avoid QT prolonging drugs. Other chronic medical conditions: Continue with/resume home meds as and when able history of sleep apnea nontolerant to CPAP history of mild CAD: resume Plavix. continue statin, Imdur and metoprolol succinate diabetes : a1c 5.4 but this was after 1 unit of blood transfused, will discharge back on home regimen as expect pt diet to be significantly different then inpatient hyperlipidemia: on statin mild intermittent asthma: continue home inhalers hypertension : continue Imdur, metoprolol succinate, lisinopril. diabetic neuropathy: c/w home pregabalin Patient is being discharged to home. Discussed with CM who offered to set up Home Health; however patient declined because they would not be coming everyday. He was educated on risks of this including worsened infection, wound, poor wound healing, sepsis and Notes For Next Care Provider Please repeat CBC at hospital follow up. Recommend repeat Iron Panel in 3 months. Pt needs to follow up with Gastroenterology and it is recommended he have a video capsule endoscopy at discharge to determine source of bleeding. He is going to complete course of oral Augmentin for scrotal abscess. Wound care and home health was recommended for pt but he declined. Please follow up closely regarding wound healing. Pt refusing to have warfarin resumed. He will need follow up with vascular at discharge. Hemoglobin stable at discharge 9.2. If hemoglobin continues to worsen would also recommend hematology consult. Echo showed moderate aortic root dilatation [4.7 cm], recommend follow up. Medication Changes From Visit NEW MEDICATIONS * Augmentin 875 mg 1 tablet twice daily, next dose due evening of 09/24/2023. * Advance probiotic 1 tablet daily while on antibiotic therapy, next dose due on 09/25/2023. * Vitamin B12 500 mcg 1 tablet daily. * Ferrous sulfate 325 mg 1 tablet daily. * Folic acid 1 mg 1 tablet daily. * Pantoprazole 40 mg 1 tablet twice daily, next dose due on evening of 09/24/23. STOPPED MEDICATIONS: Warfarin was stopped due to patient preference. Admission HPI Per Admitting Provider 58-year-old male with past medical history significant type 2 diabetes, hyperlipidemia, diabetic polyneuropathy, obstructive sleep apnea nontolerant of the CPAP, mild intermittent asthma, peripheral vascular disease, paroxysmal supraventricular tachycardia, Mild CAD,hypertension, obesity, ongoing tobacco abuse presents with show shortness of breath on minimal exertion and found to h ave anemia of hemoglobin of 7.2 and Hemoccult positive in the ER. Patient states lately getting short of breath which progressively got worse that now walking few steps making him short of breath. has Mild cough. Today had episode of vomiting but no blood in the vomitus. Has some chest heaviness. Has dizziness. Vision is blurry. No headaches. No runny nose. No abdominal pain. Stools has been dark since his colonoscopy. Normal micturition. Currently hemodynamics are okay. Past medical history. As mentioned above past surgical history. colonoscopy. Dislocated hip surgery. laminectomy from L3-S1 . Social history . Smokes 0 point0.2 packs a day for last 44 years. Alcohol rarely. drugs marijuana daily as per [facility] family history. Father Had esophageal cancer. Mother had cancer. Admission Exam Per Admitting Provider General- Not in distress Head- atraumatic Eyes- PERRL. ENT- oropharynx clear Neck- supple, no JVD Lungs- clear to auscultation no wheezing or crackles. Heart- regular rate and rhythm; no murmur, no gallop. Abdomen- normal bowel sounds, soft, nontender, no distension. Extremities- mild pretibial edema present , no erythema seen. Neuro- alert, oriented ,PERRL, no facial palsy; no dysarthria; moves extremities. Discharge Exam Gen: WD/WN, M, Obese, NAD but agitated and upset, sitting in bedside chair very disgruntled, A&O x3 HEENT: Normocephalic, atraumatic, conjunctivae moist, sclerae anicteric, mucous membranes moist. Lung: Clear to Auscultation bilaterally, no wheezes/rales/rhonchi Heart: Regular rate, regular rhythm, no murmurs, rubs, or gallops Abdomen: Soft, NT, ND +BS x 4 Extremities:b.l dusky lower extremities in setting of pvd Skin: Warm, no rash, negative turgor. Updated Medication List Medication Instructions Recorded Confirmed Type atorvastatin 40 mg tablet 40 mg PO QAM 06/16/22 09/17/23 History clopidogrel 75 mg tablet 75 mg PO QAM 06/16/22 09/17/23 History insulin aspart U-100 100 unit/mL 12 - 15 unit subcut TIDWMEAL 06/16/22 09/17/23 History (3 mL) subcutaneous pen insulin glargine 100 unit/mL (3 45 unit subcut QAM 06/16/22 09/17/23 History mL) subcutaneous pen (Lantus Solostar U-100 Insulin) insulin glargine 100 unit/mL 17 unit subcut HS 06/16/22 09/17/23 History subcutaneous solution (Lantus U-100 Insulin) lisinopril 40 mg tablet 40 mg PO QAM 06/16/22 09/17/23 History metoprolol succinate 50 mg 50 mg PO QAM 06/16/22 09/17/23 History tablet,extended release 24 hr isosorbide mononitrate 30 mg 30 mg PO QAM #30 tabs 06/29/22 09/17/23 Rx tablet,extended release 24 hr albuterol sulfate 90 mcg/actuation 2 inh inhalation BID PRN Wheezing 11/05/22 09/17/23 History aerosol inhaler nitroglycerin 0.4 mg sublingual 0.4 mg sublingual Q5M PRN Chest 03/22/23 09/17/23 History tablet (Nitrostat) Pain pregabalin 75 mg capsule 75 mg PO AMHS 09/17/23 09/17/23 History L.acidop,casei,lactis,rham-B.lact,kiera 1 cap PO DAILY 7 days #7 caps 09/24/23 Rx 625 mg (10 billion cell) capsule (Advanced Probiotic) amoxicillin 875 mg-potassium 1 tab PO BIDM 7 days #14 tabs 09/24/23 Rx clavulanate 125 mg tablet cyanocobalamin (vitamin B-12) 500 500 mcg PO QAM 30 days #30 tabs 09/24/23 Rx mcg tablet ferrous sulfate 325 mg (65 mg 325 mg PO QAM #30 tabs 09/24/23 Rx iron) tablet,delayed release folic acid 1 mg tablet 1 mg PO QAM 30 days #30 tabs 09/24/23 Rx pantoprazole 40 mg tablet,delayed 40 mg PO BID 30 days #60 tabs 09/24/23 Rx release Hospital Stay Data Consultations 09/17/23 00:22 ED Decision to Admit Stat 09/17/23 08:00 Consult Gastroenterology Routine 09/18/23 23:09 Consult Urology Routine 09/19/23 17:49 Consult Infectious Diseases Routine Procedures Performed Operation Date: 09/19/23 13:20 Actual Procedures p Scrotal Exploration and Excision and Drainage of Abscess; Washout - Vishal Connell DO Diagnostic Imagining Performed Chest X-Ray 09/16/23 21:54 SINGLE VIEW CHEST CLINICAL HISTORY: Generalized weakness. FINDINGS: An AP, portable, upright chest radiograph is compared to chest x-ray and chest CT dated 02/24/2022. The examination is mildly degraded by portable technique and patient rotation. The heart is enlarged. The pulmonary vasculature is noncongested. There is mild bibasilar atelectasis. No airspace consolidation or large pleural effusion is identified. No pneumothorax is seen. The bony thorax is grossly intact. IMPRESSION: Cardiomegaly with no acute cardiopulmonary abnormality identified. ACT 112: Negative or not required by law. Electronically signed by: Victor Manuel Yin M.D. 09/17/2023 7:[address] 09/16/23 22:04 Exam(s): CT HEAD Without Contrast EXAM: CT Head Without Intravenous Contrast CLINICAL HISTORY: Reason for exam: weakness, vomiting, coumadin. TECHNIQUE: Axial computed tomography images of the head/brain without intravenous contrast. Automated exposure control was utilized for the study. A dose lowering technique was utilized adhering to the principles of ALARA. COMPARISON: No relevant prior studies available. FINDINGS: No acute intracranial hemorrhage. No midline shift or mass effect. The territorial saravia-white matter differentiation is maintained throughout. The ventricles and sulci are commensurate with age. The visualized orbits appear grossly unremarkable. The calvarium is intact. The visualized paranasal sinuses and mastoid air cells are grossly clear. IMPRESSION: No acute intracranial hemorrhage, midline shift, or mass effect. Electronically signed by: Kevin Estevez MD 09/16/23 23:50 PM Abdomen/Pelvis CTA 09/18/23 06:21 CT angio abdomen pelvis w con CLINICAL HISTORY: anemia. TECHNIQUE: Multidetector row helical CT of the abdomen and pelvis was performed, following intravenous administration of iodinated contrast. No oral contrast was administered. Automated dose lowering techniques and/or adjustment according to patient size were utilized for this exam. Coronal and sagittal reformations were obtained. MIP and 3D volume rendered reconstructions were obtained. CT DOSE: 1622.52 mGy.cm Comparison: Comparison is made to CT abdomen pelvis 02/24/2022 FINDINGS: Lower chest: Bibasilar atelectasis versus scarring is seen. Liver: Unremarkable. No focal lesions are seen. Gallbladder and biliary tree: Cholelithiasis is seen without evidence of cholecystitis. No intra- or extrahepatic biliary ductal dilation. Pancreas: Unremarkable, no focal lesions. Spleen: Unremarkable. Adrenals: Unremarkable. Kidneys and ureters: Unremarkable. Bladder: Unremarkable. Reproductive organs: Unremarkable. Bowel: Diverticulosis is seen without diverticulitis. The appendix is normal. There is a small hiatal hernia. Lymph nodes Retroperitoneal: Subcentimeter lymph nodes are noted. Pelvic: Unremarkable. Mesenteric: Unremarkable. Peritoneum: Normal. Abdominal wall: Unremarkable. Bones: Degenerative changes in the visualized spine. CT angiogram: The abdominal aortic contours appear intact without evidence of aneurysmal dilatation and/or dissection. There is evidence of scattered atherosclerotic calcifications of the abdominal aorta and its major branches. The origins of the celiac axis, superior mesenteric, inferior mesenteric and bilateral renal arteries are patent. 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 Narrowing of the left internal and external iliac arteries without hemodynamically significant stenosis. 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 No acute abnormalities to explain anemia. ACT 112: Negative or not required by law. Electronically signed by: Caio Sims M.D. 09/18/2023 8:22 AM Scrotum Ultrasound 09/19/23 09:28 TESTICULAR ULTRASOUND HISTORY: scrotal mass, COMPARISON: None. FINDINGS: Right testis: 44 x 20 x 32 mm. There are few scattered microcalcifications. There are no intratesticular masses. Normal color flow. A 2 mm right epididymal head cyst. Small slightly complex hydrocele. Left testis: 44 x 23 x 30 mm. There are few scattered microcalcifications. There are no intratesticular masses. Normal color flow. Small complex hydrocele. A 3 mm left epididymal head cyst. Miscellaneous: Within the right posterior scrotum there is a 38 x 23 x 14 mm complex subcutaneous fluid collection with surrounding color flow. This favors an abscess. IMPRESSION: 1. 38 x 23 x 14 mm complex subcutaneous fluid collection within the right posterior scrotum. This favors an abscess. 2. Small complex bilateral hydroceles. 3. Small bilateral epididymal head cysts. 4. No testicular masses. ACT 112: Negative or not required by law. Electronically signed by: Joe Bravo M.D. 09/19/2023 10:32 AM Pending Results Patient Have Any Pending Studies at Discharge: No Discharge Instructions Given to Patient (Per Discharging Provider) MEDICATION CHANGES: NEW MEDICATIONS * Augmentin 875 mg 1 tablet twice daily, next dose due evening of 09/24/2023. * Advance probiotic 1 tablet daily while on antibiotic therapy, next dose due on 09/25/2023. * Vitamin B12 500 mcg 1 tablet daily. * Ferrous sulfate 325 mg 1 tablet daily. * Folic acid 1 mg 1 tablet daily. * Pantoprazole 40 mg 1 tablet twice daily, next dose due on evening of 09/24/23. STOPPED MEDICATIONS: Warfarin was stopped due to patient preference. SUMMARY OF TEST RESULTS: You were admitted to hospital secondary to shortness of breath and found to have a hemoglobin of 7.2. He received 3 units of blood transfusion. You were seen and evaluated by gastroenterology and underwent endoscopy which revealed inflammation in your stomach. You were started on a medication called Protonix twice daily to help with this. You are also found to have a lump on your scrotum. You were seen and evaluated urology and underwent incision and drainage. Your wound required wound care. You are seen and evaluated by infectious disease for antibiotic recommendations. You are being transition to oral Augmentin at discharge. It is recommended that you continue wound care on a daily basis, but you refused this at discharge. PENDING TEST RESULTS: None RECOMMENDATIONS FOR FOLLOW-UP: Please follow-up with your primary care provider as scheduled. You need to receive wound care to your scrotal abscess. Please discuss this with your primary care provider. Case management did try to set this up for you but you declined. Please monitor the area for any increased drainage, redness or fever. If any of this occurs please contact your provider. It is recommended that you follow-up with gastroenterology as an outpatient. It is recommended that you undergo a video capsule endoscopy to determine possible source of bleeding that resulted in your anemia. Please follow-up with your vascular surgeon upon discharge. It is recommended that you take the anticoagulant warfarin, but you wished for this to be discontinued. It is strongly encouraged to follow-up with vascular surgery to discuss further treatment. Please have your primary care provider recheck your iron profile in 3 months. You are currently on daily iron supplementation as your iron level was low. An Ultrasound of your heart was performed during your hospital stay. It found that your aortic root was dilated at 4.7cm. Strongly encouraged that you have a follow up echocardiogram to follow this. Please discuss this with your Primary Care Provider. OTHER INSTRUCTIONS: Seek medical attention if you have: * temperature above 101 * chest pain or trouble breathing * abdominal pain, nausea, vomiting * diarrhea, dark stools or bloody stools * any unanswered questions or concerns Call 911 if symptoms are severe. Please take good care of yourself. It has been a pleasure taking care of you. Please take care of yourself. If you have any questions regarding your recent hospitalization please contact [facility] and request [facility] [employer] @ [phone]. Total Time Total Time Spent Total Time Spent (In Minutes): 45 minutes Supervising Physician Co-Signing Physician Notes Patient was seen and examined at bedside. Patient stable, reports feeling better, doesn't want HH for wound care. Pt was explained it is very imp to take proper care of wound as it can spread causing severe infection and . He voiced understanding but still wouldn't want HH for wound care. ID evaluated, Augmentin for total of 10 days therapy. Appreciate recs. On examination patient on room air, obese, heart/lung/abdomen examination fairly WNL. Rest of the examination as above. I have seen and examined the patient and have discussed the case with the provider above. I agree with the assessment and plan as stated.
== END 2023-09-24 13:13 | disposition home or self-care (01) | DRG 988 ==
LOC: ED 21:21 → SUATTDRO 09-17 04:25 → 1E 09-17 04:25 → 2E 09-19 21:37 → 3E 09-21 15:42